=== PATIENT | male | born 1945 | race Two or more races ===

== ENCOUNTER 2022-02-17 11:42 | Inpatient (IN) | payer MEDICARE, MEDICAID, SELFPAY ==
--- NOTE | ~2022-02-17 | XR_ITS ---
EXAMINATION: XR CHEST CLINICAL INFORMATION: Preop COMPARISON: Previous chest x-ray from yesterday TECHNIQUE: 2 views of the chest were obtained. FINDINGS: The cardiac silhouette is enlarged but stable. The thoracic aorta is tortuous and may be ectatic. Hilar and mediastinal contours are unremarkable. The lungs are clear. There are small bilateral pleural effusions. No free air is seen. There is a loop recorder in the left chest wall. There are degenerative changes of the spine. XR/XR chest 2V IMPRESSION: Stable enlargement of the cardiac silhouette. Small bilateral pleural effusions. No free air is seen.
--- NOTE | ~2022-02-17 | CT_ITS ---
EXAMINATION: CT HEAD WITHOUT CONTRAST CLINICAL INFORMATION: Fall COMPARISON: None TECHNIQUE: Contiguous axial imaging was performed from the skull base to vertex without intravenous administration of contrast. This CT examination was performed using dose optimization techniques as appropriate, variously including the following: *Automated exposure control *Adjustment of mA and/or kV according to patient size (this includes techniques or standardized protocols for targeted exams where dose is matched to indication/reason for exam; i.e. extremities or head) *Use of iterative reconstruction technique DLP: 741 mGy-cm FINDINGS: There is no evidence of acute intracranial hemorrhage or territorial infarction. No abnormal mass effect or midline shift is seen. Pollard to white matter differentiation is well preserved. No extra-axial fluid collections are identified. Symmetric concordant age-appropriate diffuse parenchymal volume loss. No hydrocephalus. Patchy periventricular and subcortical white matter hypodensity consistent with chronic microvascular white matter ischemic changes. The osseous structures and soft tissues are normal. The mastoid air cells and visualized portions of the paranasal sinuses are well aerated. CT/CT head/brain wo IV con IMPRESSION: No acute intracranial pathology.
--- NOTE | ~2022-02-17 | CT_ITS ---
EXAMINATION: CT ABDOMEN AND PELVIS WITHOUT CONTRAST CLINICAL INFORMATION: injury near rectum open wound communicates COMPARISON: None. TECHNIQUE: Multidetector volumetric imaging was performed from the lung bases through the pubic symphysis. Sagittal and coronal reformatted images were obtained on the technologist workstation. This CT examination was performed using dose optimization techniques as appropriate, variously including the following: *Automated exposure control *Adjustment of mA and/or kV according to patient size (this includes techniques or standardized protocols for targeted exams where dose is matched to indication/reason for exam; i.e. extremities or head) *Use of iterative reconstruction technique FINDINGS: The lack of intravenous contrast limits evaluation of the solid visceral organs including the liver, spleen, pancreas, and kidneys. LUNG BASES: Marked cardiomegaly. Small to moderate pericardial effusion. Trace right effusion. Bilateral bronchial wall thickening and patchy interstitial opacities. LIVER, GALLBLADDER, AND BILIARY TREE: Limited noncontrast evaluation the liver is normal. Normal noncontrast appearance of the gallbladder. PANCREAS: Diffuse pancreatic atrophy. No pancreatic mass seen. No peripancreatic inflammatory changes. SPLEEN: Limited non-contrast evaluation is normal. ADRENAL GLANDS: 1.8 cm homogeneous low-density left adrenal mass has density 0 Hounsfield units consistent with a lipid rich adrenal adenoma for which no imaging follow-up is recommended. Normal right adrenal gland. KIDNEYS AND URETERS: Multiple bilateral renal cysts are present the largest measuring 7.4 cm exophytic from the lower pole the right kidney. No calculi or hydronephrosis. There are some likely vascular calcifications in the hilum of the left kidney. GASTROINTESTINAL TRACT: Stomach is collapsed. Small bowel is nondilated. No colonic wall thickening or pericolonic inflammatory changes. There are numerous foci of abnormal ectopic gas. There is extensive ectopic gas in the perineum extending to the amalia of the penis. There is gas within the subcutaneous fat of the right medial posterior buttock extending into the ischiorectal fossa. There is a collection of fluid and gas anterior to the rectum in image 71/89 measuring 3.8 x 1.7 cm consistent with underlying abscess/fistula. There is abnormal collection of gas with a gas fluid level posteriorly along the right pelvic sidewall measuring 9.2 x 2.7 cm in image 95. Abnormal ectopic gas is seen along the left pelvic sidewall in the same images. There is ectopic gas anterior to the bladder up to 1.4 cm in diameter. There is a small focus of pneumoperitoneum anterior to the bladder in image 67/90. ABDOMINAL WALL: There is diffuse soft tissue stranding throughout the pelvis. There is more focal fluid within the subcutaneous fat of the right anterior abdomen. There is midline posterior dependent fluid within the subcutaneous fat. Its unclear if these represent edema or contusions or some component of anasarca LYMPH NODES: No pathologically enlarged lymph nodes in the abdomen or pelvis. VASCULAR: 2.8 cm diameter aorta with circumferential calcified atherosclerotic changes. The common iliac arteries are nearly aneurysmal. BLADDER: Unremarkable. PELVIC VISCERA: Coarse calcifications in the prostate. Bilateral hydroceles are present in the scrotum. OSSEOUS STRUCTURES: Extensive multilevel degenerative disc disease L2-S1. CT/CT abdomen pelvis wo IV con IMPRESSION: Extensive areas of ectopic gas within the soft tissues of the right buttock, right ischiorectal fossa, perineum, and pelvis. Evaluation is limited without IV contrast. The appearance is more consistent with penetrating penetrating trauma then blunt injury, for example from a fall. The penetrating injury likely extends into the pelvis suspected bilateral pelvic sidewall collections. Perforation of the rectum is certainly possible. Recommend surgical consultation. Repeat study utilizing IV and perhaps rectal contrast may be helpful. The findings and recommendations were discussed with Genevieve Hurt MD by telephone at 02/17/2022 4:00 PM and it was ascertained that the content and urgency of the report was understood at the time of direct communication.
--- NOTE | ~2022-02-17 | XR_ITS ---
EXAMINATION: XR CHEST CLINICAL INFORMATION: Shortness of breath. COMPARISON: Chest radiograph 02/21/2022. TECHNIQUE: Frontal view of the chest was obtained. FINDINGS: Stable cardiomegaly. Increased layering right-sided pleural effusion with associated airspace opacities in the right lower lobe. No pneumothorax. Stable appearance of the left lung. No acute osseous abnormalities. XR/XR chest 1V IMPRESSION: Increased layering right-sided pleural effusion with associated worsening airspace opacities in the right lower lobe, possibly related with compressive atelectasis in view of the effusion.
--- NOTE | ~2022-02-17 | CT_ITS ---
EXAMINATION: CT ABDOMEN AND PELVIS WITHOUT CONTRAST CLINICAL INFORMATION: Abdominal discomfort and vomiting. COMPARISON: 02/17/2022 and 02/21/2022 TECHNIQUE: Multidetector volumetric imaging was performed from the superior aspect of the liver through the pubic symphysis. Sagittal and coronal reformatted images were obtained on the technologist's workstation. This CT examination was performed using dose optimization techniques as appropriate, variously including the following: *Automated exposure control *Adjustment of mA and/or kV according to patient size (this includes techniques or standardized protocols for targeted exams where dose is matched to indication/reason for exam; i.e. extremities or head) *Use of iterative reconstruction technique DLP: 498 mGy-cm FINDINGS: LUNG BASES: Multichamber cardiac enlargement. Implanted wireless pacemaker with the right ventricle. Small bilateral pleural effusions and bibasilar atelectasis remain similar in appearance compared to 02/21/2022. Persistent small pericardial effusion is present. LIVER: The liver has normal size, shape, and attenuation. No evidence of liver mass. GALLBLADDER AND BILIARY TREE: Gallbladder is underdistended. There is likely mild bladder wall thickening related to the anasarca. No dilated bile ducts. PANCREAS: No acute findings within the atrophied pancreas. SPLEEN: Normal. ADRENAL GLANDS: Again noted is the lipid rich adenoma of the left adrenal gland. KIDNEYS AND URETERS: No nephrolithiasis or hydronephrosis. Multiple bilateral renal cysts have a simple appearance, as noted on prior exams. No renal imaging follow-up is recommended for simple cysts. BLADDER: Grossly normal. BOWEL AND PERITONEUM: Stomach and small bowel are unremarkable. There are a few diverticula of the right colon. Although small volume of free fluid is present in the abdomen and pelvis, the volume of free fluid has increased compared to 02/21/2022. No focal organized intraperitoneal collection or pneumoperitoneum. Interval resolution of previously observed gas along the left pelvic sidewall. The collection of fluid and gas lateral to the rectum extending to the sidewall currently measures approximately 1.5 cm transverse, 8 cm AP (decreased from 3 x 8 cm on 02/21/2022). Also, small amount of gas previously seen deep to the right lower abdominal wall has resolved. ABDOMINAL WALL: Anasarca with diffuse edema of subcutaneous tissues. VASCULATURE: Atherosclerosis of the abdominal aorta and iliofemoral vessels. Again noted is the aneurysmal dilatation of the right common iliac artery. LYMPH NODES: No pathologic sized lymph nodes. PELVIC VISCERA: Again noted are the calcifications of the prostate which is normal in size. MUSCULOSKELETAL: Severe multilevel degenerative disc disease of the lumbar spine. No acute skeletal abnormalities compared to 02/21/2022. CT/CT abdomen pelvis wo IV con IMPRESSION: Cardiomegaly and anasarca. Small bilateral pleural effusions are similar compared to 02/21/2022. Interval increased edema of subcutaneous tissues, and increased volume of free fluid in the abdomen and pelvis. No intraperitoneal abscess. The abscess projecting lateral to the rectum extending toward the pelvic sidewall has decreased in size. The previously observed gas in the lower lateral pelvis has resolved, and there are no new perirectal collections.
--- NOTE | ~2022-02-17 | CT_ITS ---
EXAMINATION: CT ABDOMEN AND PELVIS WITHOUT CONTRAST CLINICAL INFORMATION: Follow-up rectal perforation COMPARISON: Previous CT of the abdomen and pelvis 02/17/2022 TECHNIQUE: Multidetector volumetric imaging was performed from the superior aspect of the liver through the pubic symphysis. Sagittal and coronal reformatted images were obtained on the technologist's workstation. This CT examination was performed using dose optimization techniques as appropriate, variously including the following: *Automated exposure control *Adjustment of mA and/or kV according to patient size (this includes techniques or standardized protocols for targeted exams where dose is matched to indication/reason for exam; i.e. extremities or head) *Use of iterative reconstruction technique DLP: 552 mGy-cm FINDINGS: LUNG BASES: The cardiac silhouette is enlarged but stable. There are small bilateral pleural effusions and bilateral lower lobe adjacent compressive atelectasis there is a pacemaker in the left particular apex. LIVER, GALLBLADDER, AND BILIARY TREE: Question mild cirrhotic changes of the liver. No focal lesion. Normal gallbladder. No biliary station. PANCREAS: Atrophic changes of the pancreas. SPLEEN: Unremarkable. ADRENAL GLANDS: 2 cm low-attenuation left adrenal lesion. This is negative Hounsfield units suggestive of a benign lipid rich adenoma. Normal right adrenal gland.. KIDNEYS AND URETERS: Multiple bilateral renal cysts. The kidneys are otherwise normal. No imaging follow-up. BLADDER: Small left-sided bladder diverticulum. The bladder is otherwise normal. GASTROINTESTINAL TRACT: There is wall thickening of the rectum. There is a small air fluid level adjacent right anterior upper rectum measuring 2 x 3.2 cm. Axial image 78 series 3. There is is questionable for abscess versus perforation and does not appear appreciably changed. There are bilateral air and fluid collections along both pelvic sidewalls measuring 3 by 9 mm on the right axial image 80 series 3 and smaller air collection on the left measuring 1 x 2 cm axial image 76. This does not appear appreciably changed from 02/17/2022 exam. There is a small amount of air just deep to the right anterior abdominal wall and lateral to the right rectus muscle axial image 77 series 3. This does not appear appreciably changed. It is uncertain whether this represents intra or extra peritoneal air. There is fat stranding surrounding the rectum and infiltration of the ischiorectal fat, right side greater than left. This does not appear appreciably changed. Air collections in the perineum and ischiorectal fat are decreased from 02/17/2022 exam. There is question of mild wall thickening of the sigmoid colon/mild colitis. Visualized bowel is otherwise unremarkable. The appendix is unremarkable. The stomach is unremarkable. ABDOMINAL WALL: No significant hernia is appreciated. LYMPH NODES: Normal. VASCULAR: There is evidence of atherosclerotic disease. There is ectasia of the abdominal aorta and iliac arteries bilaterally. There is a small aneurysm of the right common iliac artery measuring 2.9 cm. PELVIC VISCERA: Prostate gland measures 3.4 x 4 cm in AP and transverse dimension. There are calcifications in the prostate. OSSEOUS STRUCTURES: Degenerative changes of the spine. CT/CT abdomen pelvis wo IV con IMPRESSION: Wall thickening of the rectum. Stable air-fluid level adjacent to the right anterior lateral upper rectum questionable for abscess or perforation. Stable bilateral pelvic sidewall collections containing air and fluid on the right and air on the left. Stable small amount of air just deep to the right lower abdominal wall lateral to the rectus muscles. Fat stranding in the perineum and ischiorectal fat right greater than left. Interval decrease in air in the right ischiorectal fossa and perineal region. Mild wall thickening of the colon questionable for colitis. Bilateral renal cysts. Atherosclerotic disease stage of the lower abdominal aorta and iliac arteries. 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 Fleischner guidelines were followed.
--- NOTE | ~2022-02-17 | XR_ITS ---
EXAMINATION: XR CHEST CLINICAL INFORMATION: Evaluate pacer leads. COMPARISON: Abdomen CT from 02/17/2022. TECHNIQUE: Frontal view of the chest was obtained. FINDINGS: Again noted is marked cardiomegaly and mild prominence of central pulmonary vessels. No acute pulmonary edema. The trace right pleural effusion seen on 02/17/2022 is not visible on this radiograph. There is atherosclerotic calcification of the aorta. A leadless pacing device projects over the region of the apex of the right ventricle. There is no transvenous cardiac pacemaker. EKG wires overlie the patient. Lungs are hypoinflated and there is crowding of bronchovascular structures at the bases. Minimal atelectasis is suspected at the suboptimally evaluated bases. XR/XR chest 1V IMPRESSION: * Cardiomegaly. No acute pulmonary edema. * A leadless pacemaker projects over the apex of the right ventricle. * Lung bases are suboptimally evaluated due to the single anterior posterior projection and pulmonary hypoinflation.
[2022-02-17 12:09] VITALS: BP 145/93; PULSE 78; RESP 20; TEMP 36.7; O2SAT 97; BMI 26.4
--- NOTE | 2022-02-17 12:25 | ED_ITS ---
HPI - Skin/Abscess/Foreign Bdy General Chief complaint: Skin/Abscess/Foreign Body Stated complaint: bad infection in back/heart condition Time Seen by Provider: 02/17/22 12:22 Source: patient and family Mode of arrival: ambulatory Limitations: other (poor historian) History of Present Illness HPI narrative: 77 yo old male with PMH of BPH, heart condition with PPM on xarelto and carvedilol ?afib, HTN, alcohol abuse, asthma who fell on Sunday on concrete - son states he drinks a lot of alcohol. Patient denies head strike. He went to a clinic in they think it was sunday and the son was told by the clinic staff that they lanced a cyst. No antibiotics and the doctor who saw his father told the son to bring his father to the [facility] for treatment. The son few his father home as soon as possible. The patient has been bleeding and leaking stool from wound. MD complaint: laceration and lesion Onset (ago): day(s) (6) Tetanus up to date: yes Location: buttocks (left buttock) Severity: severe Quality: aching and constant Pain Consistency: constant Relieving factors: other (not sitting on buttock) Exacerbating factors: palpation and movement Context: other (reports falling and buttock landing on concrete he had some sort of a cyst that was lanced on Sunday and wound has become worse) Associated symptoms: chills and nausea Treatments prior to arrival: other (reportedly cyst was drained [place] clinic [place] the [place]) Related Data Home Medications Medication Instructions Recorded Confirmed acetaminophen 325 mg tablet 650 mg PO Q6H PRN Pain 02/17/22 02/17/22 carvedilol 6.25 mg tablet 1 tab PO BID 02/17/22 02/17/22 enalapril maleate 2.5 mg tablet 1 tab PO BID 02/17/22 02/17/22 folic acid 1 mg tablet 1 tab PO DAILY 02/17/22 02/17/22 furosemide 80 mg tablet 1 tab PO BID 02/17/22 02/17/22 omeprazole 20 mg capsule,delayed 20 mg PO DAILY@0630 02/17/22 02/17/22 release rivaroxaban 15 mg tablet (Xarelto) 15 mg PO DAILY@1700 02/17/22 02/17/22 spironolactone 25 mg tablet 1 tab PO DAILY 02/17/22 02/17/22 tamsulosin 0.4 mg capsule 1 cap PO DAILY 02/17/22 02/17/22 Allergies Allergy/AdvReac Type Severity Reaction Status Date / Time No Known Allergies Allergy Verified 02/17/22 12:33 Review of Systems Review of Systems: Constitutional : No Fever, pos Chills ENT/Mouth : No sore throat, No Rhinorrhea Eyes: No Eye Pain, No Swelling, No Redness Cardiovascular : No Chest Pain, No SOB Respiratory : No Cough, No Sputum Gastrointestinal : No Nausea, No Vomiting, No Diarrhea, No abdominal Pain Genitourinary : No Dysuria, No Hematuria Musculoskeletal : No joint pain, No Myalgias, No Joint Swelling Skin : pos Skin Lesions, positive skin rash Neuro : pos Weakness, No Numbness, No Headache Psych : No Anxiety, No Depression Heme/Lymph: No Bruising, No Bleeding,No Lymphadenopathy Endocrine : No Polyuria, No Polydipsia All other systems reviewed and are negative PMFSH Past Medical History Attestation statement: The following information was validated with the patient. Source: obtained from family Medical History (Updated 02/17/22 @ 16:31 by Genevieve Hurt DO) Afib Alcohol abuse Anticoagulant long-term use BPH (benign prostatic hyperplasia) Cardiomyopathy CKD (chronic kidney disease) ESBL (extended spectrum beta-lactamase) producing bacteria infection HTN (hypertension) Pacemaker Social History Social History Alcohol intake: former Patient Tobacco Use Status: Former Tobacco user Use of substances other than those prescribed or required for medical reasons: No Advance Directives: No Physical Exam Vital Signs: Vital Signs: Last Vital Signs Temp 98.0 F 02/17/22 14:20 Pulse 84 02/17/22 14:20 Resp 16 02/17/22 14:20 BP 140/92 H 02/17/22 14:20 Pulse Ox 95 02/17/22 14:20 O2 Del Method 02/17/22 14:20 BMI result Body Mass Index 26.4 Appearance: Alert. Oriented X3. Mild acute distress. Eyes: Pupils equal, round and reactive to light. ENT: Pharynx mild dry MM Neck: Normal inspection. Neck supple. CVS: Normal heart rate and rhythm. Pulses normal. Respiratory: No respiratory distress. Breath sounds normal. Abdomen: Soft and non-tender. Buttock: SEE PICTURE BELOW: open wound on left buttock x 2 area has stool coming out of it as well, it seems to track into the rectum with gentle sterile qtip probing, bleeding controlled, no fluctuance or underlying abscess felt, no crepitus, erythema noted to both buttocks Skin: Skin warm and dry. Normal skin color. Normal skin turgor. Extremities: No lower extremity edema. Neuro: Oriented X 3. No motor deficit. No sensory deficit. Course Course Course Narrative: Dr. Greg alonzo [facility] - afib, UTI with ESBL infection, CKD, cardiomyopathy EF 10% Dr. Garza feels currently can monitor - antibiotics, wash out at bedside, good wound care and will consult CKD - gas , around rectum in deep pelvis R buttock up into pelvis ?abscess Dr. Greg alonzo feels it is adequately draining at this time continue medical management. medicine to admit. MDM - Skin/Abscess/Foreign Bdy MDM Narrative Medical decision making narrative: 77 yo old male with PMH of BPH, heart condition with PPM on xarelto and carvedilol ?afib, HTN, alcohol abuse, asthma here with c/o buttock lesion after a fall that appears to communicate with the rectum - will obtain labs, cultures, start on empiric antibiotics, CT scan of head given fall and DOAC use, CT of abdomen/pelvs for deeper space infection, discuss with surgery - planned admit Lab Data Result diagrams: 02/17/22 14:05 02/17/22 13:05 Labs: Lab Results 02/17/22 02/17/22 02/17/22 Range/Units 13:05 13:05 13:05 WBC (4.8-10.8) X10*3/uL RBC (4.60-5.80) X10*6/uL Hgb (14.0-18.0) g/dl Hct (42.0-52.0) % MCV (80.0-98.0) fL MCH (27.0-33.0) pg MCHC (31.0-36.0) g/dl RDW (11.0-16.0) % Plt Count (160-400) X10*3/uL MPV (9.4-12.4) fL Immature Gran % (Auto) (0.0-0.4) % Neut % (Auto) (45-73) % Lymph % (Auto) (20-40) % [place] % (Auto) (2-11) % Eos % (Auto) (0-4) % Baso % (Auto) (0-2) % Lymph # (Auto) (1.2-4.9) X10*3/uL [place] # (Auto) (0.1-1.2) X10*3/uL Eos # (Auto) (0.0-0.4) X10*3/uL Baso # (Auto) (0.0-0.2) X10*3/uL Abs Immat Gran (auto) (0.00-0.03) X10*3/uL Absolute Neuts (auto) (2.0-8.3) x10*3/uL Absolute Nucleated RBC (0.0-0.012) X10*3/uL Nucleated RBC % (auto) (0.0-0.2) /100WBC PT 13.9 H (10.0-13.1) SEC INR 1.2 H (0.9-1.1) APTT 31.9 (26.0-36.4) SEC Sodium 133 L (135-145) mmol/L Potassium 4.5 (3.3-5.1) mmol/L Chloride 103 (96-108) mmol/L Carbon Dioxide 17 L (22-29) mmol/L Anion Gap 18 (12-20) BUN 22 H (9-16) mg/dL Creatinine 1.54 H (0.5-1.4) mg/dL Estim Creat Clear Calc 41.4 Estimated GFR 44 Random Glucose 110 (60-115) mg/dL Lactic Acid (0.5-2.0) mmol/L Calcium 8.4 (8.4-10.2) mg/dL Magnesium (1.6-2.6) mg/dL Total Bilirubin (0.0-1.0) mg/dL Direct Bilirubin (0.0-0.5) mg/dL AST (5-37) U/L ALT (0-40) U/L Alkaline Phosphatase (39-117) U/L Total Creatine Kinase (38-174) U/L Total Protein (6.5-8.0) g/dL Albumin (3.5-5.0) g/dL Lipase (8-78) U/L Procalcitonin ng/mL Urine Color Urine Appearance Urine pH (5.0-9.0) Ur Specific [place] (1.005-1.025) Urine Protein (Neg-Trace) mg/dL Urine Glucose (UA) (Negative) mg/dL Urine Ketones (Negative) mg/dL Urine Blood (Negative) Urine Nitrite (Negative) Ur Leukocyte Esterase (Negative) Urine RBC (0-2) /HPF Urine WBC (0-5) /HPF Ur Squamous Epith Cells (0-2) /HPF Urine Bacteria (None Seen) Hyaline Casts (0-2) /LPF Ethyl Alcohol mg/dL COVID-19 (SAY) Negative (Negative) COVID-19 Clin Com See Note 02/17/22 02/17/22 02/17/22 Range/Units 13:05 14:05 14:41 WBC 7.9 (4.8-10.8) X10*3/uL RBC 4.62 (4.60-5.80) X10*6/uL Hgb 12.9 L (14.0-18.0) g/dl Hct 38.7 L (42.0-52.0) % MCV 83.8 (80.0-98.0) fL MCH 27.9 (27.0-33.0) pg MCHC 33.3 (31.0-36.0) g/dl RDW 17.2 H (11.0-16.0) % Plt Count 344 (160-400) X10*3/uL MPV 10.2 (9.4-12.4) fL Immature Gran % (Auto) 1.6 H (0.0-0.4) % Neut % (Auto) 71.8 (45-73) % Lymph % (Auto) 15.3 L (20-40) % [place] % (Auto) 10.1 (2-11) % Eos % (Auto) 0.9 (0-4) % Baso % (Auto) 0.3 (0-2) % Lymph # (Auto) 1.2 (1.2-4.9) X10*3/uL [place] # (Auto) 0.8 (0.1-1.2) X10*3/uL Eos # (Auto) 0.1 (0.0-0.4) X10*3/uL Baso # (Auto) 0.0 (0.0-0.2) X10*3/uL Abs Immat Gran (auto) 0.13 H (0.00-0.03) X10*3/uL Absolute Neuts (auto) 5.7 (2.0-8.3) x10*3/uL Absolute Nucleated RBC 0.000 (0.0-0.012) X10*3/uL Nucleated RBC % (auto) 0.0 (0.0-0.2) /100WBC PT (10.0-13.1) SEC INR (0.9-1.1) APTT (26.0-36.4) SEC Sodium (135-145) mmol/L Potassium (3.3-5.1) mmol/L Chloride (96-108) mmol/L Carbon Dioxide (22-29) mmol/L Anion Gap (12-20) BUN (9-16) mg/dL Creatinine (0.5-1.4) mg/dL Estim Creat Clear Calc Estimated GFR Random Glucose (60-115) mg/dL Lactic Acid 1.3 (0.5-2.0) mmol/L Calcium (8.4-10.2) mg/dL Magnesium 1.8 (1.6-2.6) mg/dL Total Bilirubin 1.1 H (0.0-1.0) mg/dL Direct Bilirubin 0.5 (0.0-0.5) mg/dL AST 19 (5-37) U/L ALT 6 (0-40) U/L Alkaline Phosphatase 105 (39-117) U/L Total Creatine Kinase 16 L (38-174) U/L Total Protein 6.2 L (6.5-8.0) g/dL Albumin 2.7 L (3.5-5.0) g/dL Lipase 11 (8-78) U/L Procalcitonin ng/mL Urine Color Urine Appearance Urine pH (5.0-9.0) Ur Specific [place] (1.005-1.025) Urine Protein (Neg-Trace) mg/dL Urine Glucose (UA) (Negative) mg/dL Urine Ketones (Negative) mg/dL Urine Blood (Negative) Urine Nitrite (Negative) Ur Leukocyte Esterase (Negative) Urine RBC (0-2) /HPF Urine WBC (0-5) /HPF Ur Squamous Epith Cells (0-2) /HPF Urine Bacteria (None Seen) Hyaline Casts (0-2) /LPF Ethyl Alcohol < 10 mg/dL COVID-19 (SAY) (Negative) COVID-19 Clin Com 02/17/22 02/17/22 Range/Units 14:41 14:41 WBC (4.8-10.8) X10*3/uL RBC (4.60-5.80) X10*6/uL Hgb (14.0-18.0) g/dl Hct (42.0-52.0) % MCV (80.0-98.0) fL MCH (27.0-33.0) pg MCHC (31.0-36.0) g/dl RDW (11.0-16.0) % Plt Count (160-400) X10*3/uL MPV (9.4-12.4) fL Immature Gran % (Auto) (0.0-0.4) % Neut % (Auto) (45-73) % Lymph % (Auto) (20-40) % [place] % (Auto) (2-11) % Eos % (Auto) (0-4) % Baso % (Auto) (0-2) % Lymph # (Auto) (1.2-4.9) X10*3/uL [place] # (Auto) (0.1-1.2) X10*3/uL Eos # (Auto) (0.0-0.4) X10*3/uL Baso # (Auto) (0.0-0.2) X10*3/uL Abs Immat Gran (auto) (0.00-0.03) X10*3/uL Absolute Neuts (auto) (2.0-8.3) x10*3/uL Absolute Nucleated RBC (0.0-0.012) X10*3/uL Nucleated RBC % (auto) (0.0-0.2) /100WBC PT (10.0-13.1) SEC INR (0.9-1.1) APTT (26.0-36.4) SEC Sodium (135-145) mmol/L Potassium (3.3-5.1) mmol/L Chloride (96-108) mmol/L Carbon Dioxide (22-29) mmol/L Anion Gap (12-20) BUN (9-16) mg/dL Creatinine (0.5-1.4) mg/dL Estim Creat Clear Calc Estimated GFR Random Glucose (60-115) mg/dL Lactic Acid (0.5-2.0) mmol/L Calcium (8.4-10.2) mg/dL Magnesium (1.6-2.6) mg/dL Total Bilirubin (0.0-1.0) mg/dL Direct Bilirubin (0.0-0.5) mg/dL AST (5-37) U/L ALT (0-40) U/L Alkaline Phosphatase (39-117) U/L Total Creatine Kinase (38-174) U/L Total Protein (6.5-8.0) g/dL Albumin (3.5-5.0) g/dL Lipase (8-78) U/L Procalcitonin 0.15 ng/mL Urine Color Dark Yellow Urine Appearance Clear Urine pH 5.0 (5.0-9.0) Ur Specific [place] 1.015 (1.005-1.025) Urine Protein Negative (Neg-Trace) mg/dL Urine Glucose (UA) Negative (Negative) mg/dL Urine Ketones Negative (Negative) mg/dL Urine Blood Negative (Negative) Urine Nitrite Positive H (Negative) Ur Leukocyte Esterase Large (3+) H (Negative) Urine RBC 0-2 (0-2) /HPF Urine WBC >50 H (0-5) /HPF Ur Squamous Epith Cells 3-5 (0-2) /HPF Urine Bacteria 3+ (None Seen) Hyaline Casts 0-2 (0-2) /LPF Ethyl Alcohol mg/dL COVID-19 (SAY) (Negative) COVID-19 Clin Com ECG Data Attestation: I personally reviewed and interpreted this ECG as follows: ECG interpretation date: 02/17/22 ECG interpretation time: 13:16 Interpretation: Rate: 79 Rhythm: paced [place]: left Normal P waves. Normal [place]. wide QRS complex ST T wave : tall t waves in anterior leads qTC: prolonged prior studies: paced no priors The study has been interpreted contemporaneously by me. . Discharge Plan Discharge Clinical Impression: Acute UTI, Cellulitis of buttock Open wnd of buttock Qualifiers: Encounter type: initial encounter Laterality: left Qualified Code(s): S31.829A - Unspecified open wound of left buttock, initial encounter Patient Disposition: Admitted As Inpatient
--- NOTE | 2022-02-17 12:34 | ECG_ITS ---
Test Reason : ABSCESS Blood Pressure : / mmHG Vent. Rate : 079 BPM Atrial Rate : 079 BPM P-R Int : 000 ms QRS Dur : 164 ms QT Int : 436 ms P-R-T Axes : 000 230 064 degrees QTc Int : 499 ms Ventricular-paced rhythm Abnormal ECG No previous ECGs available Referred By: Genevieve Hurt Electronically Signed By:JAVY CRSEPO MD
[2022-02-17 13:19] LABS: INTERNATIONAL NORM RATIO 1.2 (0.9-1.1); Prothrombin Time 13.9 SEC (10.0-13.1)
[2022-02-17 13:21] LABS: Partial Thromboplastin Time 31.9 SEC (26.0-36.4)
[2022-02-17 13:24] LABS: Lactic Acid 1.3 mmol/L (0.5-2.0)
[2022-02-17 13:27] LABS: Anion Gap 18 (12-20); Blood Urea Nitrogen 22 mg/dL (9-16); Calcium 8.4 mg/dL (8.4-10.2); Carbon Dioxide 17 mmol/L (22-29); Chloride 103 mmol/L (96-108); Creatinine Clr Calc Pharmacy 41.4; Estimated Glomerular Filt Rate 44; Glucose Random 110 mg/dL (60-115); Potassium 4.5 mmol/L (3.3-5.1); Sodium 133 mmol/L (135-145)
[2022-02-17] MEDS: 0.9 % Sodium Chloride 500 ML IV (13:58)
[2022-02-17] MEDS: Piperacillin Sodium/Tazobactam 3.375 GM in 0.9 % Sodium Chloride 50 ML IV ×2 (13:59→21:42)
[2022-02-17] MEDS: Thiamine HCL 200 MG in 0.9 % Sodium Chloride 100 ML 204 MG IV (13:59)
[2022-02-17 14:14] LABS: MANUAL DIFF FLAG NO
[2022-02-17] MEDS: Famotidine/PF 20 MG/2 ML VIAL IVPUSH (14:18)
--- NOTE | 2022-02-17 14:19 | PC.NURSE ---
pt tough stick, multiple attempts by staff, piv with US placed by crystal duong. abx and ivf now running as ordered.
[2022-02-17 14:20] VITALS: BP 140/92; PULSE 84; RESP 16; TEMP 36.7; O2SAT 95
[2022-02-17 14:24] LABS: Basophils Percent Auto 0.3 % (0-2); Eosinophils Absolute Auto 0.1 X10*3/uL (0.0-0.4); Eosinophils Percent Auto 0.9 % (0-4); Hematocrit 38.7 % (42.0-52.0); Hemoglobin 12.9 g/dl (14.0-18.0); Imm Gran Abs Auto 0.13 X10*3/uL (0.00-0.03); Imm Gran Pct Auto 1.6 % (0.0-0.4); Lymphocytes Absolute Auto 1.2 X10*3/uL (1.2-4.9); Lymphocytes Percent Auto 15.3 % (20-40); Mean Corpuscular HGB Conc 33.3 g/dl (31.0-36.0); Mean Corpuscular Hemoglobin 27.9 pg (27.0-33.0); Mean Corpuscular Volume 83.8 fL (80.0-98.0); Mean Platelet Volume 10.2 fL (9.4-12.4); Monocytes Absolute Auto 0.8 X10*3/uL (0.1-1.2); Monocytes Percent Auto 10.1 % (2-11); Neutrophils Absolute Auto 5.7 x10*3/uL (2.0-8.3); Neutrophils Percent Auto 71.8 % (45-73); Platelet Count 344 X10*3/uL (160-400); Red Blood Count 4.62 X10*6/uL (4.60-5.80); Red Cell Distribution Width 17.2 % (11.0-16.0); White Blood Count 7.9 X10*3/uL (4.8-10.8)
--- NOTE | 2022-02-17 14:32 | PHA.MEDREC ---
Pharmacy Consult ? Medication Reconciliation Pharmacy has completed the medication reconciliation. Pt had bag of bottles at bedside, son was with him and explained that he has been in the [place] and has been getting medications there. His son asked him when he last took them and pt stated this morning.
[2022-02-17 14:52] LABS: COVID-19 Test Negative (Negative); IDNOW Serial# 16C4AD1C
[2022-02-17 14:56] LABS: Appearance Urine Clear; Color Urine Dark Yellow; Glucose Urine UA Negative (Negative); Leukocyte Esterase Urine Large (3+) (Negative); Nitrite Urine Positive (Negative); Specific Gravity - Urine 1.015 (1.005-1.025); UMIC TRIGGER UACC YES; Urine Blood Negative (Negative); Urine Ketones Negative (Negative); Urine Protein Negative (Neg-Trace)
[2022-02-17] MEDS: vancomycin HCL 1,000 MG, vancomycin HCL 750 MG in 0.9 % Sodium Chloride 500 ML 267.5 MG IV (15:04)
[2022-02-17 15:15] LABS: Alanine Aminotransferase 6 U/L (0-40); Albumin Level 2.7 g/dL (3.5-5.0); Alkaline Phosphatase 105 U/L (39-117); Aspartate Amino Transferase 19 U/L (5-37); Bilirubin Direct 0.5 mg/dL (0.0-0.5); Bilirubin Total 1.1 mg/dL (0.0-1.0); Ethanol < 10 mg/dL; Lipase 11 U/L (8-78); Magnesium 1.8 mg/dL (1.6-2.6); Total Protein 6.2 g/dL (6.5-8.0)
[2022-02-17 15:19] LABS: Bacteria Urine 3+ (None Seen); Hyaline Casts Urine 0-2 /LPF (0-2); RBC Urine 0-2 /HPF (0-2); UACC Culture Trigger YES; WBC Urine >50 /HPF (0-5)
[2022-02-17 15:31] LABS: Procalcitonin 0.15 ng/mL
--- NOTE | 2022-02-17 15:32 | P.CONGS_ITS ---
History of Present Illness Consult details Consult date: 02/17/22 Requesting physician: Genevieve Hurt Narrative: 77-year-old male patient presenting after falling onto cement on Sunday (02/12/2022) while in the [place]. He has a history of alcohol abuse and apparently was intoxicated at the time. He was subsequently seen in a walk- in clinic on Sunday at which time an incision and drainage was performed of an apparent abscess in the perianal skin. A large amount of fecal in drainage was noted at that time. The clinic contacted his son here in [place] and recommended that he be transferred as quickly as possible [place] the [place] for further management. Per his son, the patient has a long history of alcohol abuse and typically drinks rum. He has a history of cardiovascular disease and is reported to have an ejection fraction of 10% and workup performed at [facility]. Workup in the emergency department today with a CBC revealed normal WBC and normal MCV. INR is 1.2 although he is reported be on Xarelto. A CT abdomen and pelvis revealed cardiomegaly, aortic aneurysm, and air tracking around the rectum contiguous with the open wound in the perianal skin. Review of Systems Review of Systems: Yes Unobtainable due to mental status PMFSH Past Medical History Medical History Afib Alcohol abuse Anticoagulant long-term use BPH (benign prostatic hyperplasia) CKD (chronic kidney disease) ESBL (extended spectrum beta-lactamase) producing bacteria infection HTN (hypertension) Pacemaker Social History Social History Alcohol intake: former Patient Tobacco Use Status: Former Tobacco user Use of substances other than those prescribed or required for medical reasons: No Advance Directives: No Meds Allergies Allergy/AdvReac Type Severity Reaction Status Date / Time No Known Allergies Allergy Verified 02/17/22 12:33 Active Medications: Current Medications Vancomycin HCl 1,000 mg/Vancomycin HCl 750 mg/ Sodium Chloride 535 mls @ 267.5 mls/hr IV ONCE ONE Stop: 02/17/22 16:21 Last Admin: 02/17/22 15:04 Dose: 267.5 mls/hr Pharmacy Consult (Consult Rx Perform Med Rec) 1 each MISCELLANE ONCE PRN PRN Reason: Consult order Home Medications Medication Instructions Recorded Confirmed Last Taken Type acetaminophen 325 mg tablet 650 mg PO Q6H PRN Pain 02/17/22 02/17/22 Unknown History carvedilol 6.25 mg tablet 1 tab PO BID 02/17/22 02/17/22 02/17/22 History enalapril maleate 2.5 mg tablet 1 tab PO BID 02/17/22 02/17/22 02/17/22 History folic acid 1 mg tablet 1 tab PO DAILY 02/17/22 02/17/22 02/17/22 History furosemide 80 mg tablet 1 tab PO BID 02/17/22 02/17/22 02/17/22 History omeprazole 20 mg capsule,delayed 20 mg PO DAILY@0630 02/17/22 02/17/22 Unknown History release rivaroxaban 15 mg tablet (Xarelto) 15 mg PO DAILY@1700 02/17/22 02/17/22 Unknown History spironolactone 25 mg tablet 1 tab PO DAILY 02/17/22 02/17/22 02/17/22 History tamsulosin 0.4 mg capsule 1 cap PO DAILY 02/17/22 02/17/22 02/17/22 History Physical Exam Vital Signs: Vital Signs: Last Vital Signs Temp 98.0 F 02/17/22 14:20 Pulse 84 02/17/22 14:20 Resp 16 02/17/22 14:20 BP 140/92 H 02/17/22 14:20 Pulse Ox 95 02/17/22 14:20 O2 Del Method 02/17/22 14:20 BMI result Body Mass Index 26.4 Const: General: lethargic Nutritional Appearance: well nourished Orientation/consciousness: lethargic Limitations: altered mental status HEENT: Head: Yes normocephalic and Yes atraumatic Resp: Effort & Inspection: normal respiratory effort Auscultation: clear to auscultation bilaterally and crackles GI: Palpation (GI): Soft to palpation, nontender, no guarding, not rigid and Pulsatile mass present Percussion: Yes normal to percussion Auscultation: normal bowel sounds Back/Spine/Pelvis: Other: Rectal examination reveals an open wound on the left perianal wall measuring at least 4-5 cm in length. Probing with a Q-tip reveals an opening into the rectum with tracking around the rectum. Feculent discharge is noted from the open wound. No undrained abscess is identified. Skin: General skin exam: no rashes or lesions noted Extrem: General: Yes no clubbing, cyanosis or edema Results Labs Result diagrams: 02/17/22 14:05 02/17/22 13:05 Labs: Abnormal lab results 02/17/22 02/17/22 02/17/22 Range/Units 13:05 13:05 14:05 Hgb 12.9 L (14.0-18.0) g/dl Hct 38.7 L (42.0-52.0) % RDW 17.2 H (11.0-16.0) % Immature Gran % (Auto) 1.6 H (0.0-0.4) % Lymph % (Auto) 15.3 L (20-40) % Abs Immat Gran (auto) 0.13 H (0.00-0.03) X10*3/uL PT 13.9 H (10.0-13.1) SEC INR 1.2 H (0.9-1.1) Sodium 133 L (135-145) mmol/L Carbon Dioxide 17 L (22-29) mmol/L BUN 22 H (9-16) mg/dL Creatinine 1.54 H (0.5-1.4) mg/dL Total Bilirubin (0.0-1.0) mg/dL Total Creatine Kinase (38-174) U/L Total Protein (6.5-8.0) g/dL Albumin (3.5-5.0) g/dL Urine Nitrite (Negative) Ur Leukocyte Esterase (Negative) Urine WBC (0-5) /HPF 02/17/22 02/17/22 Range/Units 14:41 14:41 Hgb (14.0-18.0) g/dl Hct (42.0-52.0) % RDW (11.0-16.0) % Immature Gran % (Auto) (0.0-0.4) % Lymph % (Auto) (20-40) % Abs Immat Gran (auto) (0.00-0.03) X10*3/uL PT (10.0-13.1) SEC INR (0.9-1.1) Sodium (135-145) mmol/L Carbon Dioxide (22-29) mmol/L BUN (9-16) mg/dL Creatinine (0.5-1.4) mg/dL Total Bilirubin 1.1 H (0.0-1.0) mg/dL Total Creatine Kinase 16 L (38-174) U/L Total Protein 6.2 L (6.5-8.0) g/dL Albumin 2.7 L (3.5-5.0) g/dL Urine Nitrite Positive H (Negative) Ur Leukocyte Esterase Large (3+) H (Negative) Urine WBC >50 H (0-5) /HPF Short CBC 02/17/22 Range/Units 14:05 WBC 7.9 (4.8-10.8) X10*3/uL Hgb 12.9 L (14.0-18.0) g/dl Hct 38.7 L (42.0-52.0) % Plt Count 344 (160-400) X10*3/uL BMP 02/17/22 13:05 Sodium 133 L Potassium 4.5 Chloride 103 Carbon Dioxide 17 L BUN 22 H Creatinine 1.54 H Calcium 8.4 Cardiac Enzymes 02/17/22 Range/Units 14:41 Total Creatine Kinase 16 L (38-174) U/L Liver Function 02/17/22 Range/Units 14:41 Total Bilirubin 1.1 H (0.0-1.0) mg/dL Direct Bilirubin 0.5 (0.0-0.5) mg/dL AST 19 (5-37) U/L ALT 6 (0-40) U/L Alkaline Phosphatase 105 (39-117) U/L Albumin 2.7 L (3.5-5.0) g/dL Urine 02/17/22 Range/Units 14:41 Urine Color Dark Yellow Urine Appearance Clear Urine pH 5.0 (5.0-9.0) Ur Specific [place] 1.015 (1.005-1.025) Urine Protein Negative (Neg-Trace) mg/dL Urine Glucose (UA) Negative (Negative) mg/dL All other labs normal. Assessment and Plan (1) Open wnd of buttock: Qualifiers: Encounter type: initial encounter Laterality: left Qualified Code(s): S31.829A - Unspecified open wound of left buttock, initial encounter Status: Acute (2) Fall: Status: Acute (3) Traumatic perforation of rectum: Status: Acute Plan 77-year-old male patient status post fall in the [place] 6 days ago found to have an open wound in the anal skin which is contiguous with a perforation of the rectum. The wound is widely drained but leaking fecal material. Patient's WBC is normal and CT does reveal air tracking out around the rectum. Patient has severe cardiac disease with an ejection fraction of 10%, on oral anticoagulation, and chronic kidney disease. Options include bowel rest, IV antibiotics and local wound care with Sitz baths q.i.d. to wash out the open wound. If his wounds is not improve a diverting loop colostomy may be necessary although his risk for general anesthesia are high given his cardiac history. Procedures Date of Service Date of Service: 02/17/22
--- NOTE | 2022-02-17 17:34 | PM.IMHP ---
History of Present Illness Date of Service: 02/17/22 Attending physician on admission: Colleen Velasco Chief Complaint: Open wound left buttock 77-year-old gentleman with past medical history significant for heart failure with reduced EF echocardiogram from last year showed an EF of 10-15% with grade 3 diastolic dysfunction status post pacemaker placement in 2019, history of atrial fibrillation on anticoagulation, history of chronic kidney disease stage 3, history of severe mitral regurg, moderate to severe tricuspid regurg, moderate pulmonary hypertension and dementia was brought into [facility] accompanied by son since patient fell on concrete in [facility] [place] while he was intoxicated patient has history of 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 possible for further management therefore patient was brought into [facility], patient is a poor historian due to underlying dementia unable to provide detailed history at present he denies fever chills complaining of chronic shortness of breath, denies headache, dizziness, workup in the emergency room showed an INR of 1.[address] abdomen and pelvis revealed mild to moderate pericardial effusion, extensive areas of ectopic gas within the soft tissues of the right buttock right ischiorectal fossa perineum and pelvis likely related to perforation of the rectum, patient noted to have fecal drainage from the open wound, extending to the rectum from the left perineal wall, patient at present is hemodynamically stable surgery recommended patient to be admitted to medical service with surgical consultation due to significant history of heart disease with low EF, chronic kidney disease stage 3 and atrial fibrillation on Xarelto. Review of Systems Review of Systems: Yes Unobtainable due to mental status [facility] Medical History Afib Alcohol abuse Anticoagulant long-term use BPH (benign prostatic hyperplasia) Cardiomyopathy CKD (chronic kidney disease) ESBL (extended spectrum beta-lactamase) producing bacteria infection HTN (hypertension) Pacemaker Pertinent family history: As per patient's son patient's father diet due to a car accident, mother due to pulmonary issues no family history of colon cancer Social History Alcohol intake: former Patient Tobacco Use Status: Former Tobacco user Use of substances other than those prescribed or required for medical reasons: No Advance Directives: No Meds Allergies Allergy/AdvReac Type Severity Reaction Status Date / Time No Known Allergies Allergy Verified 02/17/22 12:33 Active Medications: Current Medications Acetaminophen (Acetaminophen 325 Mg Tablet) 650 mg PO Q6H PRN PRN Reason: Pain, Mild (Pain Scale 1-3) Benzonatate (Benzonatate 100 Mg Capsule) 100 mg PO TID PRN PRN Reason: Cough Carvedilol (Carvedilol 6.25 Mg Tablet) 6.25 mg PO BID [facility]; Protocol Enalapril Maleate (Enalapril Maleate 2.5 Mg Tablet) 2.5 mg PO BID [facility]; Protocol Folic Acid (Folic Acid 1 Mg Tablet) 1 mg PO DAILY [facility] Melatonin (Melatonin 3 Mg Tablet) 3 mg PO BEDTIME PRN PRN Reason: Insomnia Omeprazole (Omeprazole 20 Mg Capsule.Dr) 20 mg PO DAILY@0630 [facility] Ondansetron HCl (Ondansetron Hcl 4 Mg/2 Ml Vial) 4 mg IVPUSH Q8H PRN PRN Reason: Nausea and Vomiting Pharmacy Consult (Consult Rx Perform Med Rec) 1 each MISCELLANE ONCE PRN PRN Reason: Consult order Sodium Chloride (0.9 % Sodium Chloride Flush 3 Ml Syringe) 3 ml IVFLUSH QSHIFT [facility] Tamsulosin HCl (Tamsulosin Hcl 0.4 Mg Capsule) 0.4 mg PO DAILY [facility] Home Medications Medication Instructions Recorded Confirmed Last Taken Type acetaminophen 325 mg tablet 650 mg PO Q6H PRN Pain 02/17/22 02/17/22 Unknown History carvedilol 6.25 mg tablet 1 tab PO BID 02/17/22 02/17/22 02/17/22 History enalapril maleate 2.5 mg tablet 1 tab PO BID 02/17/22 02/17/22 02/17/22 History folic acid 1 mg tablet 1 tab PO DAILY 02/17/22 02/17/22 02/17/22 History furosemide 80 mg tablet 1 tab PO BID 02/17/22 02/17/22 02/17/22 History omeprazole 20 mg capsule,delayed 20 mg PO DAILY@0630 02/17/22 02/17/22 Unknown History release rivaroxaban 15 mg tablet (Xarelto) 15 mg PO DAILY@1700 02/17/22 02/17/22 Unknown History spironolactone 25 mg tablet 1 tab PO DAILY 02/17/22 02/17/22 02/17/22 History tamsulosin 0.4 mg capsule 1 cap PO DAILY 02/17/22 02/17/22 02/17/22 History Physical Exam Vital Signs and Narrative: Vital Signs: Last Vital Signs Temp 98.0 F 02/17/22 14:20 Pulse 84 02/17/22 14:20 Resp 16 02/17/22 14:20 BP 140/92 H 02/17/22 14:20 Pulse Ox 95 02/17/22 14:20 O2 Del Method 02/17/22 14:20 BMI result Body Mass Index 26.4 Const: Other: General resting comfortably in no acute distress. Anicteric sclera Neck supple no JVD. CVS regular rate rhythm, Respiratory lungs clear to auscultation, no respiratory distress, no wheeze, no rhonchi. Gastrointestinal abdomen soft, nontender, bowel sounds audible, no guarding , no rigidity. Extremities no edema. Rectal examination reveals open wound on the left perianal wall measuring at least 4-5 cm in length,Feculent discharge is noted from the open wound.? Neuro nonfocal, patient moving all 4 extremity speech clear. Skin no rash Psych poor insight Results Labs CBC and Chem 7: 02/18/22 06:19 02/18/22 07:46 Labs: Laboratory Results - last 24 hr 02/17/22 02/17/22 02/17/22 13:05 13:05 13:05 MCV MCH MCHC RDW Plt Count MPV Immature Gran % (Auto) Neut % (Auto) Lymph % (Auto) Dubois % (Auto) Eos % (Auto) Baso % (Auto) Lymph # (Auto) Dubois # (Auto) Eos # (Auto) Baso # (Auto) Abs Immat Gran (auto) Absolute Neuts (auto) Absolute Nucleated RBC Nucleated RBC % (auto) PT 13.9 H INR 1.2 H APTT 31.9 Anion Gap 18 Estim Creat Clear Calc 41.4 Estimated GFR 44 Random Glucose 110 Lactic Acid Calcium 8.4 Magnesium Total Bilirubin Direct Bilirubin AST ALT Alkaline Phosphatase Total Creatine Kinase Total Protein Albumin Lipase Procalcitonin Urine Color Urine Appearance Urine pH Ur Specific [place] Urine Protein Urine Glucose (UA) Urine Ketones Urine Blood Urine Nitrite Ur Leukocyte Esterase Urine RBC Urine WBC Ur Squamous Epith Cells Urine Bacteria Hyaline Casts Ethyl Alcohol COVID-19 (SAY) Negative COVID-19 Clin Com See Note 02/17/22 02/17/22 02/17/22 13:05 14:05 14:41 MCV 83.8 MCH 27.9 MCHC 33.3 RDW 17.2 H Plt Count 344 MPV 10.2 Immature Gran % (Auto) 1.6 H Neut % (Auto) 71.8 Lymph % (Auto) 15.3 L Dubois % (Auto) 10.1 Eos % (Auto) 0.9 Baso % (Auto) 0.3 Lymph # (Auto) 1.2 Dubois # (Auto) 0.8 Eos # (Auto) 0.1 Baso # (Auto) 0.0 Abs Immat Gran (auto) 0.13 H Absolute Neuts (auto) 5.7 Absolute Nucleated RBC 0.000 Nucleated RBC % (auto) 0.0 PT INR APTT Anion Gap Estim Creat Clear Calc Estimated GFR Random Glucose Lactic Acid 1.3 Calcium Magnesium 1.8 Total Bilirubin 1.1 H Direct Bilirubin 0.5 AST 19 ALT 6 Alkaline Phosphatase 105 Total Creatine Kinase 16 L Total Protein 6.2 L Albumin 2.7 L Lipase 11 Procalcitonin Urine Color Urine Appearance Urine pH Ur Specific [place] Urine Protein Urine Glucose (UA) Urine Ketones Urine Blood Urine Nitrite Ur Leukocyte Esterase Urine RBC Urine WBC Ur Squamous Epith Cells Urine Bacteria Hyaline Casts Ethyl Alcohol < 10 COVID-19 (SAY) COVID-19 Clin Com 02/17/22 02/17/22 14:41 14:41 MCV MCH MCHC RDW Plt Count MPV Immature Gran % (Auto) Neut % (Auto) Lymph % (Auto) Dubois % (Auto) Eos % (Auto) Baso % (Auto) Lymph # (Auto) Dubois # (Auto) Eos # (Auto) Baso # (Auto) Abs Immat Gran (auto) Absolute Neuts (auto) Absolute Nucleated RBC Nucleated RBC % (auto) PT INR APTT Anion Gap Estim Creat Clear Calc Estimated GFR Random Glucose Lactic Acid Calcium Magnesium Total Bilirubin Direct Bilirubin AST ALT Alkaline Phosphatase Total Creatine Kinase Total Protein Albumin Lipase Procalcitonin 0.15 Urine Color Dark Yellow Urine Appearance Clear Urine pH 5.0 Ur Specific [place] 1.015 Urine Protein Negative Urine Glucose (UA) Negative Urine Ketones Negative Urine Blood Negative Urine Nitrite Positive H Ur Leukocyte Esterase Large (3+) H Urine RBC 0-2 Urine WBC >50 H Ur Squamous Epith Cells 3-5 Urine Bacteria 3+ Hyaline Casts 0-2 Ethyl Alcohol COVID-19 (SAY) COVID-19 Clin Com Imaging Radiologist's Impressions: Impressions Abdomen/Pelvis CT 02/17/22 14:35 IMPRESSION: Extensive areas of ectopic gas within the soft tissues of the right buttock, right ischiorectal fossa, perineum, and pelvis. Evaluation is limited without IV contrast. The appearance is more consistent with penetrating penetrating trauma then blunt injury, for example from a fall. The penetrating injury likely extends into the pelvis suspected bilateral pelvic sidewall collections. Perforation of the rectum is certainly possible. Recommend surgical consultation. Repeat study utilizing IV and perhaps rectal contrast may be helpful. The findings and recommendations were discussed with Genevieve Hurt MD by telephone at 02/17/2022 4:00 PM and it was ascertained that the content and urgency of the report was understood at the time of direct communication. Head CT 02/17/22 14:36 IMPRESSION: No acute intracranial pathology. Assessment and Plan (1) Traumatic perforation of rectum: Status: Acute (2) Cellulitis of buttock: Status: Acute (3) Fall: Status: Acute (4) Acute UTI: Status: Acute (5) Open wnd of buttock: Qualifiers: Encounter type: initial encounter Laterality: left Qualified Code(s): S31.829A - Unspecified open wound of left buttock, initial encounter Status: Acute Plan 77-year-old gentleman with past medical history of heart failure with reduced EF status post pacemaker 2020 atrial fibrillation on Xarelto, chronic kidney disease stage 3 brought into [facility] by son since patient fell in [facility] [place] while intoxicated on concrete floor and developed open for wound with fecal drainage showing rectal perforation patient is being admitted to medical floor with close surgical follow-up. Open wound( left perianal) with Rectal perforation Will give clear liquid diet tonight and make him NPO after midnight, place patient on IV Zosyn and IV vancomycin follow blood cultures and urine Cultures Case discussed with general surgery Dr. Garza recommend Sitz baths 4 times a day, he agrees with antibiotics Will hold Xarelto for possible surgical intervention Follow CBC electrolytes and clinical course closely for any decompensation Chronic congestive heart failure with reduced EF No acute exacerbation Continue home medications including Coreg, ,vasotec, hold diuretics Chronic persistent atrial fibrillation rate controlled continue Coreg hold anticoagulation as above chronic kidney disease stage 3 stable Mild to moderate pericardial effusion patient asymptomatic with no chest pain will obtain cardiology consultation if planned for surgical procedure UTI patient is a poor historian unable to obtain history regarding urinary symptoms UA is positive is on IV Zosyn that will cover will follow urine culture sensitivity and blood cultures Code status DNR DNI discussed with patient son at bedside who is the healthcare proxy Pancho Huang DVT prophylaxis hold anticoagulation for possible surgical intervention, will place on compression stockings In my clinical opinion patient will need 2 night inpatient stay due to perforated rectum with open Anal wound. Quality Stroke Does the patient have a stroke diagnosis?: No VTE Prior VTE?: No VTE Risk Level:: Medical - moderate - high VTE Device Contraindication: N/A - Device Ordered VTE Drug Contraindication: Treatment Not Indicated
[2022-02-17 19:53] VITALS: BP 159/96; PULSE 75; RESP 15; TEMP 36.6; O2SAT 98
[2022-02-17] MEDS: carvediloL 6.25 MG TABLET PO (21:41)
[2022-02-17] MEDS: 0.9 % Sodium Chloride Flush 3 ML SYRINGE IVFLUSH (23:37)
[2022-02-17 23:38] VITALS: BP 145/98; PULSE 79; RESP 15; O2SAT 94
[2022-02-18] VITALS (7 sets, daily range): BP systolic 130–159; BP diastolic 78–103; PULSE 69–100; RESP 13–20; TEMP 35.6–36.8; O2SAT 92–98
[2022-02-18] MEDS: Piperacillin Sodium/Tazobactam 3.375 GM in 0.9 % Sodium Chloride 50 ML IV ×4 (03:13→22:00)
[2022-02-18] MEDS: Acetaminophen 325 MG TABLET 650 MG PO (04:42)
--- NOTE | 2022-02-18 05:40 | PC.NURSE ---
Patient assisted to commode with 2-assist for stability. He has smears of stool on the pad in his bed. Bed linens changed, yamilka care provided, and fresh ABD pad applied to buttock wound. Patient boosted and repositioned on his left side in stretcher for comfort, medicated with tylenol for wound pain. Call hussein is within reach.
[2022-02-18] MEDS: Omeprazole 20 MG CAPSULE.DR PO (05:41)
[2022-02-18 07:02] LABS: Hematocrit 34.2 % (42.0-52.0); Hemoglobin 11.4 g/dl (14.0-18.0); Mean Corpuscular HGB Conc 33.3 g/dl (31.0-36.0); Mean Corpuscular Hemoglobin 28.1 pg (27.0-33.0); Mean Corpuscular Volume 84.2 fL (80.0-98.0); Mean Platelet Volume 10.9 fL (9.4-12.4); Platelet Count 281 X10*3/uL (160-400); Red Blood Count 4.06 X10*6/uL (4.60-5.80); Red Cell Distribution Width 17.5 % (11.0-16.0); White Blood Count 6.6 X10*3/uL (4.8-10.8)
[2022-02-18] MEDS: 0.9 % Sodium Chloride Flush 3 ML SYRINGE IVFLUSH ×2 (08:41→18:23)
[2022-02-18] MEDS: carvediloL 6.25 MG TABLET PO ×2 (08:41→22:25)
[2022-02-18] MEDS: Folic Acid 1 MG TABLET PO (08:41)
[2022-02-18] MEDS: Tamsulosin HCL 0.4 MG CAPSULE PO (08:41)
[2022-02-18 09:23] LABS: Anion Gap 21 (12-20); Blood Urea Nitrogen 20 mg/dL (9-16); Calcium 8.3 mg/dL (8.4-10.2); Carbon Dioxide 15 mmol/L (22-29); Chloride 107 mmol/L (96-108); Creatinine Clr Calc Pharmacy 44.6; Estimated Glomerular Filt Rate 48; Glucose Random 68 mg/dL (60-115); Potassium 5.1 mmol/L (3.3-5.1); Sodium 138 mmol/L (135-145)
--- NOTE | 2022-02-18 09:43 | PHA.PROG ---
Admission Date/Time: February 17, 2022 17:05 Indication: Intra Abdominal Infection Weight in k.183 kg Adjusted body weight in K.653 [place] body weight in K.3 Obesity Dosing Indication % IBW: N/A Serum Creatinine - Last 168 Hours 02/17/22 02/18/22 13:05 07:46 Creatinine 1.54 H 1.43 H Estimated CrCl and GFR - Last 168 Hours 02/17/22 02/18/22 13:05 07:46 Estim Creat Clear Calc 41.4 44.6 Estimated GFR 44 48 Vancomycin Loading Dose: 1750 mg Current Vancomycin Dosing Regimen: 1250 mg Q24H Vancomycin Monitoring using AUC goal of 400 - 600 range with trough as surrogate marker: 531 mg/L/hr Date and Time for next Vancomycin Level to be drawn: 02/20 @1300 Pharmacist Comments on Vancomycin Plan: Patient didn't receive proper load. Patient should have received 2000 mg, however, patient only received 1750 mg which is about 20 mg/kg. Patient to have level drawn 02/20 @1300. Predicted AUC 531 mg/L/hr Vancomycin dosing will take advantage of [employer] as a clinical decision support tool that uses Bayesian modeling to calculate individual patient's pharmacokinetic parameters and forecast the patient's drug concentration time course with the target goal AUC 24 range of 400 - 600 mg/L/hr.
--- NOTE | 2022-02-18 13:14 | P.PNIM_ITS ---
Subjective Subjective Date of Service: 02/18/22 Interval History: Patient is resting comfortably unable to obtain history due to underlying dementia, no acute events overnight, no fevers no chills, vitals stable. Review of Systems Review of Systems: Yes Unobtainable due to mental status Physical Exam Vital Signs: Vital Signs: Last Vital Signs Temp 98 F 02/18/22 05:31 Pulse 78 02/18/22 08:39 Resp 13 02/18/22 08:39 BP 130/94 H 02/18/22 08:39 Pulse Ox 98 02/18/22 05:31 O2 Del Method 02/18/22 05:31 BMI result Body Mass Index 26.4 Const: Other: General? resting comfortably in no acute distress.? Neck supple no JVD. CVS? regular rate rhythm, Respiratory lungs clear to auscultation, no respiratory distress, no wheeze, no rhonchi. Gastrointestinal abdomen soft, nontender, bowel sounds audible, no guarding , no rigidity. Extremities no? edema. Rectal examination unchanged, open wound on the left perianal wall measuring at least 4-5 cm in length Neuro nonfocal, moving all 4 extremity, speech clear. Skin no rash Psych poor insight Objective Data Active Medications Acetaminophen (Acetaminophen 325 Mg Tablet) 650 mg PO Q6H PRN PRN Reason: Pain, Mild (Pain Scale 1-3) Last Admin: 02/18/22 04:42 Dose: 650 mg Documented By: CORY Benzonatate (Benzonatate 100 Mg Capsule) 100 mg PO TID PRN PRN Reason: Cough Carvedilol (Carvedilol 6.25 Mg Tablet) 6.25 mg PO BID [facility]; Protocol Last Admin: 02/18/22 08:41 Dose: 6.25 mg Documented By: LORI Enalapril Maleate (Enalapril Maleate 2.5 Mg Tablet) 2.5 mg PO BID [facility]; Protocol Last Admin: 02/18/22 08:41 Dose: 2.5 mg Documented By: LORI Folic Acid (Folic Acid 1 Mg Tablet) 1 mg PO DAILY [facility] Last Admin: 02/18/22 08:41 Dose: 1 mg Documented By: LORI Piperacillin Sod/Tazobactam (Sod 3.375 gm/ Sodium Chloride) 50 mls @ 100 mls/hr IV Q6H [facility] Last Infusion: 02/18/22 11:44 Dose: 0 mls/hr Documented By: LORI Vancomycin HCl 1,250 mg/ (Sodium Chloride) 250 mls @ 166.667 mls/hr IV Q24H [facility] Melatonin (Melatonin 3 Mg Tablet) 3 mg PO BEDTIME PRN PRN Reason: Insomnia Omeprazole (Omeprazole 20 Mg Capsule.Dr) 20 mg PO DAILY@0630 [facility] Last Admin: 02/18/22 05:41 Dose: 20 mg Documented By: CORY Ondansetron HCl (Ondansetron Hcl 4 Mg/2 Ml Vial) 4 mg IVPUSH Q8H PRN PRN Reason: Nausea and Vomiting Pharmacy Consult (Consult Rx Perform Med Rec) 1 each MISCELLANE ONCE PRN PRN Reason: Consult order Pharmacy Consult (Consult Rx Vancomycin Dosing) 1 each MISCELLANE DAILY PRN PRN Reason: Consult order Sodium Chloride (0.9 % Sodium Chloride Flush 3 Ml Syringe) 3 ml IVFLUSH QSHIFT [facility] Last Admin: 02/18/22 08:41 Dose: 3 ml Documented By: LORI Tamsulosin HCl (Tamsulosin Hcl 0.4 Mg Capsule) 0.4 mg PO DAILY [facility] Last Admin: 02/18/22 08:41 Dose: 0.4 mg Documented By: LORI Labs CBC & Chem 7: 02/18/22 06:19 02/18/22 07:46 Labs: Laboratory Results - last 24 hr 02/17/22 02/17/22 02/17/22 13:05 13:05 13:05 MCV MCH MCHC RDW Plt Count MPV Immature Gran % (Auto) Neut % (Auto) Lymph % (Auto) [place] % (Auto) Eos % (Auto) Baso % (Auto) Lymph # (Auto) [place] # (Auto) Eos # (Auto) Baso # (Auto) Abs Immat Gran (auto) Absolute Neuts (auto) Absolute Nucleated RBC Nucleated RBC % (auto) PT 13.9 H INR 1.2 H APTT 31.9 Anion Gap 18 Estim Creat Clear Calc 41.4 Estimated GFR 44 Random Glucose 110 Lactic Acid Calcium 8.4 Magnesium Total Bilirubin Direct Bilirubin AST ALT Alkaline Phosphatase Total Creatine Kinase Total Protein Albumin Lipase Procalcitonin Urine Color Urine Appearance Urine pH Ur Specific [place] Urine Protein Urine Glucose (UA) Urine Ketones Urine Blood Urine Nitrite Ur Leukocyte Esterase Urine RBC Urine WBC Ur Squamous Epith Cells Urine Bacteria Hyaline Casts Ethyl Alcohol COVID-19 (SAY) Negative COVID-19 Clin Com See Note 02/17/22 02/17/22 02/17/22 13:05 14:05 14:41 MCV 83.8 MCH 27.9 MCHC 33.3 RDW 17.2 H Plt Count 344 MPV 10.2 Immature Gran % (Auto) 1.6 H Neut % (Auto) 71.8 Lymph % (Auto) 15.3 L [place] % (Auto) 10.1 Eos % (Auto) 0.9 Baso % (Auto) 0.3 Lymph # (Auto) 1.2 [place] # (Auto) 0.8 Eos # (Auto) 0.1 Baso # (Auto) 0.0 Abs Immat Gran (auto) 0.13 H Absolute Neuts (auto) 5.7 Absolute Nucleated RBC 0.000 Nucleated RBC % (auto) 0.0 PT INR APTT Anion Gap Estim Creat Clear Calc Estimated GFR Random Glucose Lactic Acid 1.3 Calcium Magnesium 1.8 Total Bilirubin 1.1 H Direct Bilirubin 0.5 AST 19 ALT 6 Alkaline Phosphatase 105 Total Creatine Kinase 16 L Total Protein 6.2 L Albumin 2.7 L Lipase 11 Procalcitonin Urine Color Urine Appearance Urine pH Ur Specific [place] Urine Protein Urine Glucose (UA) Urine Ketones Urine Blood Urine Nitrite Ur Leukocyte Esterase Urine RBC Urine WBC Ur Squamous Epith Cells Urine Bacteria Hyaline Casts Ethyl Alcohol < 10 COVID-19 (SAY) COVID-19 Clin Com 02/17/22 02/17/22 02/18/22 14:41 14:41 06:19 MCV 84.2 MCH 28.1 MCHC 33.3 RDW 17.5 H Plt Count 281 MPV 10.9 Immature Gran % (Auto) Neut % (Auto) Lymph % (Auto) [place] % (Auto) Eos % (Auto) Baso % (Auto) Lymph # (Auto) [place] # (Auto) Eos # (Auto) Baso # (Auto) Abs Immat Gran (auto) Absolute Neuts (auto) Absolute Nucleated RBC 0.000 Nucleated RBC % (auto) 0.0 PT INR APTT Anion Gap Estim Creat Clear Calc Estimated GFR Random Glucose Lactic Acid Calcium Magnesium Total Bilirubin Direct Bilirubin AST ALT Alkaline Phosphatase Total Creatine Kinase Total Protein Albumin Lipase Procalcitonin 0.15 Urine Color Dark Yellow Urine Appearance Clear Urine pH 5.0 Ur Specific [place] 1.015 Urine Protein Negative Urine Glucose (UA) Negative Urine Ketones Negative Urine Blood Negative Urine Nitrite Positive H Ur Leukocyte Esterase Large (3+) H Urine RBC 0-2 Urine WBC >50 H Ur Squamous Epith Cells 3-5 Urine Bacteria 3+ Hyaline Casts 0-2 Ethyl Alcohol COVID-19 (SAY) COVID-19 Clin Com 02/18/22 07:46 MCV MCH MCHC RDW Plt Count MPV Immature Gran % (Auto) Neut % (Auto) Lymph % (Auto) [place] % (Auto) Eos % (Auto) Baso % (Auto) Lymph # (Auto) [place] # (Auto) Eos # (Auto) Baso # (Auto) Abs Immat Gran (auto) Absolute Neuts (auto) Absolute Nucleated RBC Nucleated RBC % (auto) PT INR APTT Anion Gap 21 H Estim Creat Clear Calc 44.6 Estimated GFR 48 Random Glucose 68 D Lactic Acid Calcium 8.3 L Magnesium Total Bilirubin Direct Bilirubin AST ALT Alkaline Phosphatase Total Creatine Kinase Total Protein Albumin Lipase Procalcitonin Urine Color Urine Appearance Urine pH Ur Specific [place] Urine Protein Urine Glucose (UA) Urine Ketones Urine Blood Urine Nitrite Ur Leukocyte Esterase Urine RBC Urine WBC Ur Squamous Epith Cells Urine Bacteria Hyaline Casts Ethyl Alcohol COVID-19 (SAY) COVID-19 Clin Com Microbiology Microbiology Results: Microbiology 02/17/22 15:33 Urine Culture - Preliminary Urine clean catch - Urine bowers top Gram negative mendoza Assessment and Plan (1) Cellulitis of buttock: Status: Acute (2) Traumatic perforation of rectum: Status: Acute (3) Fall: Status: Acute (4) Acute UTI: Status: Acute (5) Open wnd of buttock: Status: Acute Plan 77-year-old gentleman with past medical history of heart failure with reduced EF status post pacemaker 2020 atrial fibrillation on Xarelto, chronic kidney disease stage 3 brought into [facility] by son since patient fell in [place] while intoxicated on concrete floor and developed open for wound with fecal drainage showing rectal perforation patient is being admitted to medical floor with close surgical follow-up. Open wound( left perianal wall) with Rectal perforation No change in patient's clinical condition no fevers, no chills, persistent open wound . Continue IV Zosyn and IV vancomycin day 2, blood cultures pending and urine Cultures growing Gram-negative mendoza 5200 1000 Case discussed with general surgery Dr. Connelly she recommend clear liquid diet, will continue Sitz baths 4 times a day, Will hold Xarelto for possible surgical intervention Follow CBC electrolytes and clinical course closely for any decompensation Chronic congestive heart failure with reduced EF No acute exacerbation Continue home medications including Coreg, ,vasotec, hold diuretics Chronic persistent atrial fibrillation rate controlled continue Coreg hold anticoagulation as above chronic kidney disease stage 3 stable with mild acidosis Noted to have mildly elevated anion gap will follow BMP renal function remains stable will add soda bicarb Mild to moderate pericardial effusion seen on abdominal and pelvic CT scan patient asymptomatic with no chest pain, will obtain cardiology consultation if planned for surgical procedure. UTI patient is a poor historian unable to obtain history regarding urinary s ymptoms UA is positive is on IV Zosyn that will cover will follow urine culture sensitivity and blood cultures Code status DNR DNI DVT prophylaxis hold anticoagulation for possible surgical intervention,on compression stockings Patient needs continued inpatient hospitalization due to perforated rectum with open Anal? wound, needs close clinical follow-up. Quality Stroke Does the patient have a stroke diagnosis?: No VTE Prior VTE?: No VTE Risk Level:: Medical - moderate - high VTE Device Contraindication: N/A - Device Ordered VTE Drug Contraindication: Treatment Not Indicated
[2022-02-18] MEDS: ondansetron HCL 4 MG/2 ML VIAL IVPUSH (14:17)
[2022-02-18] MEDS: vancomycin HCL 1,250 MG in 0.9 % Sodium Chloride 250 ML 166.67 MG IV (14:44)
--- NOTE | 2022-02-18 14:44 | PC.NURSE ---
pt drank apple juice, sitting upright, after finishing the juice pt began dry heaving with a wet cough. Md Velasco made aware. no need for CXR at this time, pt already on ABX. will continue to monitor, aspiration precautions in place.
--- NOTE | 2022-02-18 14:52 | P.PNGS_ITS ---
Subjective Subjective Date of Service: 02/19/22 Interval history: pt not complaining of abdo pain Physical Exam Vital Signs: Vital Signs: Last Vital Signs Temp 97.7 F 02/19/22 07:11 Pulse 62 02/19/22 07:11 Resp 17 02/19/22 07:11 BP 130/87 02/19/22 07:11 Pulse Ox 99 02/19/22 07:11 O2 Del Method 02/19/22 07:11 BMI result Body Mass Index 26.4 GI: Other: perirectal area on the left side open wound with significant leaking stool material and the area is tender belly is benign pt is coughing a lot Objective Data Active Medications Acetaminophen (Acetaminophen 325 Mg Tablet) 650 mg PO Q6H PRN PRN Reason: Pain, Mild (Pain Scale 1-3) Last Admin: 02/18/22 04:42 Dose: 650 mg Documented By: CORY Benzonatate (Benzonatate 100 Mg Capsule) 100 mg PO TID PRN PRN Reason: Cough Carvedilol (Carvedilol 6.25 Mg Tablet) 6.25 mg PO BID [facility]; Protocol Last Admin: 02/19/22 08:41 Dose: 6.25 mg Documented By: BAYRON Enalapril Maleate (Enalapril Maleate 2.5 Mg Tablet) 2.5 mg PO BID [facility]; Protocol Last Admin: 02/19/22 08:41 Dose: 2.5 mg Documented By: BAYRON Folic Acid (Folic Acid 1 Mg Tablet) 1 mg PO DAILY [facility] Last Admin: 02/19/22 08:41 Dose: 1 mg Documented By: BAYRON Piperacillin Sod/Tazobactam (Sod 3.375 gm/ Sodium Chloride) 50 mls @ 100 mls/hr IV Q6H [facility] Last Infusion: 02/19/22 02:39 Dose: 0 mls/hr Documented By: MARGARETTERINBeth Vancomycin HCl 1,250 mg/ (Sodium Chloride) 250 mls @ 166.667 mls/hr IV Q24H [facility] Last Infusion: 02/18/22 16:53 Dose: 0 mls/hr Documented By: LORI Melatonin (Melatonin 3 Mg Tablet) 3 mg PO BEDTIME PRN PRN Reason: Insomnia Morphine Sulfate (Morphine Sulfate 4 Mg/Ml Cartridge) 3 mg IVPUSH Q4H PRN; Protocol PRN Reason: Pain, Severe (Pain Scale 7-10) Last Admin: 02/19/22 00:02 Dose: 3 mg Documented By: ITZEL Omeprazole (Omeprazole 20 Mg Capsule.) 20 mg PO DAILY@0630 [facility] Last Admin: 02/19/22 05:21 Dose: Not Given Documented By: ITZEL Non-Admin Reason: Patient Refused Ondansetron HCl (Ondansetron Hcl 4 Mg/2 Ml Vial) 4 mg IVPUSH Q8H PRN PRN Reason: Nausea and Vomiting Last Admin: 02/18/22 14:17 Dose: 4 mg Documented By: LORI Oxycodone HCl (Oxycodone Hcl Immed Release 5 Mg Tablet) 5 mg PO Q6H PRN PRN Reason: Pain, Moderate (Pain Scale 4-6 Pharmacy Consult (Consult Rx Perform Med Rec) 1 each MISCELLANE ONCE PRN PRN Reason: Consult order Pharmacy Consult (Consult Rx Vancomycin Dosing) 1 each MISCELLANE DAILY PRN PRN Reason: Consult order Sodium Bicarbonate (Sodium Bicarbonate 650 Mg Tablet) 650 mg PO BID [facility] Last Admin: 02/19/22 08:41 Dose: 650 mg Documented By: BAYRON Sodium Chloride (0.9 % Sodium Chloride Flush 3 Ml Syringe) 3 ml IVFLUSH QSHIFT [facility] Last Admin: 02/19/22 08:40 Dose: 3 ml Documented By: BAYRON Tamsulosin HCl (Tamsulosin Hcl 0.4 Mg Capsule) 0.4 mg PO DAILY [facility] Last Admin: 02/19/22 08:40 Dose: 0.4 mg Documented By: BAYRON Labs CBC & Chem 7: 02/18/22 06:19 02/19/22 06:48 Labs: Laboratory Results - last 24 hr 02/18/22 02/19/22 07:46 06:48 Anion Gap 21 H 15 Estim Creat Clear Calc 44.6 47.9 Estimated GFR 48 52 Random Glucose 68 D 79 Calcium 8.3 L 8.4 Magnesium 1.9 Microbiology Microbiology Results: Microbiology 02/17/22 15:33 Urine Culture - Preliminary Urine clean catch - Urine bowers top Klebsiella pneumoniae 02/17/22 14:04 Blood Culture - Preliminary Blood - Venous No growth after 24 hours. 02/17/22 13:05 Blood Culture - Preliminary Blood - Venous No growth after 24 hours. Procedures Date of Service Date of Service: 02/18/22 Progress Note: A&P Assessment and plan (1) Traumatic perforation of rectum: Status: Acute Assessment and Plan: 77 year old male with medical issues. low EF and Afib anticoagulated and ETOH abuse with rectal perforation and area widely draining externally on buttock area. abdo benign and wbc normal - at this point cont to evaluate. Best would be some diverting ostomy but pt is high risk for surgery and no evidence of abdominal or pelvic sepsis. supportive care and try to get through etoh withdrawal. pt was ? aspirated with drinking liquids yest . hes on iv antibx and bowel rest to cont and reeval tomorrow. Time Spent With Patient Time: Total time spent is greater than 50% in coordination of care (as documented) at patient's floor/unit and/or counseling patient: Quality Stroke Does the patient have a stroke diagnosis?: No VTE Prior VTE?: No VTE Risk Level:: Medical - moderate - high VTE Device Contraindication: N/A - Device Ordered VTE Drug Contraindication: Treatment Not Indicated
[2022-02-18] MEDS: Morphine Sulfate 4 MG/ML CARTRIDGE 3 MG IVPUSH (16:25)
--- NOTE | 2022-02-18 16:50 | PC.NURSE ---
Dr. Connelly at bedside to see pt. recommended dressing - ABD pab placed and brief used as stabilization. pts wound open, leaking stool, erythema noted to area and swollen, pt medication with Morphine for pain
--- NOTE | 2022-02-18 20:30 | PC.NURSE ---
Attempt to call report to C
--- NOTE | 2022-02-18 21:17 | PC.NURSE ---
Attempted to call to get report X 2, no answer on phone.
[2022-02-18] MEDS: Sodium Bicarbonate 650 MG TABLET PO (22:01)
[2022-02-19] VITALS (11 sets, daily range): BP systolic 105–139; BP diastolic 65–87; PULSE 60–70; RESP 15–20; TEMP 36.2–36.8; O2SAT 97–99
[2022-02-19] MEDS: 0.9 % Sodium Chloride Flush 3 ML SYRINGE IVFLUSH ×4 (00:01→20:23)
[2022-02-19] MEDS: Morphine Sulfate 4 MG/ML CARTRIDGE 3 MG IVPUSH ×3 (00:02→22:19)
[2022-02-19] MEDS: Piperacillin Sodium/Tazobactam 3.375 GM in 0.9 % Sodium Chloride 50 ML IV ×3 (01:56→18:39)
[2022-02-19] MEDS: OLANZapine 10 MG VIAL 5 MG IM (03:25)
--- NOTE | 2022-02-19 03:42 | PC.NURSE ---
PT throwing IV pole and wash basin in room, PT soiled 2 staff tried to clean him up, PT became combative and was refusing, also PT took off tele pack and threw it and then refused to be put back on, notified, stat order for IM Zyprexa. Security stood in room and nurse calender supervisor Melissa and 3 other staff helped clean PT and PT was given IM by this RN, no issues, PT cooperated. Restraint paperwork filled out, VS monitored every 15 minutes, PT VSSMD to see PT within an hour.
[2022-02-19 07:25] LABS: Anion Gap 15 (12-20); Blood Urea Nitrogen 20 mg/dL (9-16); Calcium 8.4 mg/dL (8.4-10.2); Carbon Dioxide 20 mmol/L (22-29); Chloride 108 mmol/L (96-108); Creatinine Clr Calc Pharmacy 47.9; Estimated Glomerular Filt Rate 52; Glucose Random 79 mg/dL (60-115); Potassium 4.4 mmol/L (3.3-5.1); Sodium 139 mmol/L (135-145)
[2022-02-19 08:29] LABS: Magnesium 1.9 mg/dL (1.6-2.6)
[2022-02-19] MEDS: Tamsulosin HCL 0.4 MG CAPSULE PO (08:40)
[2022-02-19] MEDS: Folic Acid 1 MG TABLET PO (08:41)
[2022-02-19] MEDS: Sodium Bicarbonate 650 MG TABLET PO ×2 (08:41→20:17)
[2022-02-19] MEDS: carvediloL 6.25 MG TABLET PO ×2 (08:41→20:34)
--- NOTE | 2022-02-19 09:51 | MHC.CM.PN ---
met with pt who lives with his son he has no servcies he is not covid vax it is expected that he will be seen by care team prior to dc
--- NOTE | 2022-02-19 11:04 | HO.PM.IMPN ---
Subjective Subjective Date of Service: 02/19/22 Interval History: Patient awake alert. offers no acute complaints, tolerating diet. had large bowel movement last night, denies lower back pain has pain only with movement, no fevers ,no chills ,no other acute issues. 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 resting comfortably in no acute distress.? Neck supple no JVD. CVS? regular rate rhythm, Respiratory lungs clear to auscultation, no respiratory distress, no wheeze, no rhonchi. Gastrointestinal abdomen soft, nontender, bowel sounds audible, no guarding , no rigidity. Extremities no? edema. Rectal examination patient declined examination due to pain Neuro nonfocal, moving all 4 extremity, speech clear. Skin no rash Psych poor insight Objective Data Active Medications Acetaminophen (Acetaminophen 325 Mg Tablet) 650 mg PO Q6H PRN PRN Reason: Pain, Mild (Pain Scale 1-3) Last Admin: 02/18/22 04:42 Dose: 650 mg Documented By: CORY Benzonatate (Benzonatate 100 Mg Capsule) 100 mg PO TID PRN PRN Reason: Cough Carvedilol (Carvedilol 6.25 Mg Tablet) 6.25 mg PO BID [facility]; Protocol Last Admin: 02/19/22 08:41 Dose: 6.25 mg Documented By: BAYRON Enalapril Maleate (Enalapril Maleate 2.5 Mg Tablet) 2.5 mg PO BID [facility]; Protocol Last Admin: 02/19/22 08:41 Dose: 2.5 mg Documented By: BAYRON Folic Acid (Folic Acid 1 Mg Tablet) 1 mg PO DAILY [facility] Last Admin: 02/19/22 08:41 Dose: 1 mg Documented By: BAYRON Piperacillin Sod/Tazobactam (Sod 3.375 gm/ Sodium Chloride) 50 mls @ 100 mls/hr IV Q6H [facility] Last Infusion: 02/19/22 02:39 Dose: 0 mls/hr Documented By: ITZEL Vancomycin HCl 1,250 mg/ (Sodium Chloride) 250 mls @ 166.667 mls/hr IV Q24H [facility] Last Infusion: 02/18/22 16:53 Dose: 0 mls/hr Documented By: LORI Melatonin (Melatonin 3 Mg Tablet) 3 mg PO BEDTIME PRN PRN Reason: Insomnia Morphine Sulfate (Morphine Sulfate 4 Mg/Ml Cartridge) 3 mg IVPUSH Q4H PRN; Protocol PRN Reason: Pain, Severe (Pain Scale 7-10) Last Admin: 02/19/22 00:02 Dose: 3 mg Documented By: ITZEL Omeprazole (Omeprazole 20 Mg Capsule.Dr) 20 mg PO DAILY@0630 [facility] Last Admin: 02/19/22 05:21 Dose: Not Given Documented By: ITZEL Non-Admin Reason: Patient Refused Ondansetron HCl (Ondansetron Hcl 4 Mg/2 Ml Vial) 4 mg IVPUSH Q8H PRN PRN Reason: Nausea and Vomiting Last Admin: 02/18/22 14:17 Dose: 4 mg Documented By: LORI Oxycodone HCl (Oxycodone Hcl Immed Release 5 Mg Tablet) 5 mg PO Q6H PRN PRN Reason: Pain, Moderate (Pain Scale 4-6 Pharmacy Consult (Consult Rx Perform Med Rec) 1 each MISCELLANE ONCE PRN PRN Reason: Consult order Pharmacy Consult (Consult Rx Vancomycin Dosing) 1 each MISCELLANE DAILY PRN PRN Reason: Consult order Sodium Bicarbonate (Sodium Bicarbonate 650 Mg Tablet) 650 mg PO BID [facility] Last Admin: 02/19/22 08:41 Dose: 650 mg Documented By: BAYRON Sodium Chloride (0.9 % Sodium Chloride Flush 3 Ml Syringe) 3 ml IVFLUSH QSHIFT [facility] Last Admin: 02/19/22 08:40 Dose: 3 ml Documented By: BAYRON Tamsulosin HCl (Tamsulosin Hcl 0.4 Mg Capsule) 0.4 mg PO DAILY [facility] Last Admin: 02/19/22 08:40 Dose: 0.4 mg Documented By: BAYRON Labs CBC & Chem 7: 02/18/22 06:19 02/19/22 06:48 Labs: Laboratory Results - last 24 hr 02/19/22 06:48 Anion Gap 15 Estim Creat Clear Calc 47.9 Estimated GFR 52 Random Glucose 79 Calcium 8.4 Magnesium 1.9 Microbiology Microbiology Results: Microbiology 02/17/22 15:33 Urine Culture - Preliminary Urine clean catch - Urine bowers top Klebsiella pneumoniae 02/17/22 14:04 Blood Culture - Preliminary Blood - Venous No growth after 24 hours. 02/17/22 13:05 Blood Culture - Preliminary Blood - Venous No growth after 24 hours. Assessment and Plan (1) Cellulitis of buttock: Status: Acute (2) Traumatic perforation of rectum: Status: Acute (3) Fall: Status: Acute (4) Acute UTI: Status: Acute (5) Open wnd of buttock: Status: Acute Plan 77-year-old gentleman with past medical history of heart failure with reduced EF status post pacemaker 2020 atrial fibrillation on Xarelto, chronic kidney disease stage 3 brought into [facility] by son since patient fell in [place] while intoxicated on concrete floor and developed open for wound with fecal drainage showing rectal perforation patient is being admitted to medical floor with close surgical follow-up. Open wound( left perianal wall) with Rectal perforation No change in patient's clinical condition no fevers, no chills, persistent open wound . Continue IV Zosyn and IV vancomycin day 3, blood cultures neg so far, and urine Cultures grew Klebsiella pneumonia 50,000 to 100,000 Case discussed with general surgery Dr. Connelly she recommend clear liquid diet, will continue Sitz baths 4 times a day, Will hold Xarelto for possible surgical intervention Follow CBC electrolytes and clinical course closely for any decompensation Chronic congestive heart failure with reduced EF No acute exacerbation Continue home medications including Coreg, ,vasotec, hold diuretics Chronic persistent atrial fibrillation rate controlled continue Coreg hold anticoagulation as above chronic kidney disease stage 3 stable with mild acidosis anion gap resolved/bicarb improved to 20, continue soda bicarb will follow BMP renal function remains stable Mild to moderate pericardial effusion seen on abdominal and pelvic CT scan patient asymptomatic with no chest pain, will obtain cardiology consultation if planned for surgical procedure. UTI patient is a poor historian unable to obtain history regarding urinary symptoms UA is positive is on IV Zosyn that will cover will follow final urine culture Code status DNR DNI DVT prophylaxis hold anticoagulation for possible surgical intervention,on compression stockings Patient needs continued inpatient hospitalization due to perforated rectum with open Anal? wound, needs close clinical follow-up. Quality Stroke Does the patient have a stroke diagnosis?: No VTE Prior VTE?: No VTE Risk Level:: Medical - moderate - high VTE Device Contraindication: N/A - Device Ordered VTE Drug Contraindication: Treatment Not Indicated
--- NOTE | 2022-02-19 14:12 | PM.PNGS ---
Subjective Subjective Date of Service: 02/19/22 Interval history: pt overnight was delerious and disruptive but settled down today. doing better tolerating some clear liquids. still significant stool material coming out of the area off to the side of anus Physical Exam Vital Signs: Vital Signs: Last Vital Signs Temp 98.2 F 02/19/22 11:58 Pulse 70 02/19/22 11:58 Resp 15 02/19/22 11:58 BP 138/75 02/19/22 11:58 Pulse Ox 99 02/19/22 11:58 O2 Del Method 02/19/22 11:58 BMI result Body Mass Index 26.4 GI: Other: abdo benign Objective Data Active Medications Acetaminophen (Acetaminophen 325 Mg Tablet) 650 mg PO Q6H PRN PRN Reason: Pain, Mild (Pain Scale 1-3) Last Admin: 02/18/22 04:42 Dose: 650 mg Documented By: CORY Benzonatate (Benzonatate 100 Mg Capsule) 100 mg PO TID PRN PRN Reason: Cough Carvedilol (Carvedilol 6.25 Mg Tablet) 6.25 mg PO BID [facility]; Protocol Last Admin: 02/19/22 08:41 Dose: 6.25 mg Documented By: BAYRON Enalapril Maleate (Enalapril Maleate 2.5 Mg Tablet) 2.5 mg PO BID [facility]; Protocol Last Admin: 02/19/22 08:41 Dose: 2.5 mg Documented By: BAYRON Folic Acid (Folic Acid 1 Mg Tablet) 1 mg PO DAILY [facility] Last Admin: 02/19/22 08:41 Dose: 1 mg Documented By: BAYRON Vancomycin HCl 1,250 mg/ (Sodium Chloride) 250 mls @ 166.667 mls/hr IV Q24H [facility] Last Infusion: 02/18/22 16:53 Dose: 0 mls/hr Documented By: LORI Piperacillin Sod/Tazobactam (Sod 3.375 gm/ Sodium Chloride) 50 mls @ 100 mls/hr IV Q6H [facility] Melatonin (Melatonin 3 Mg Tablet) 3 mg PO BEDTIME PRN PRN Reason: Insomnia Morphine Sulfate (Morphine Sulfate 4 Mg/Ml Cartridge) 3 mg IVPUSH Q4H PRN; Protocol PRN Reason: Pain, Severe (Pain Scale 7-10) Last Admin: 02/19/22 00:02 Dose: 3 mg Documented By: ITZEL Omeprazole (Omeprazole 20 Mg Capsule.) 20 mg PO DAILY@0630 [facility] Last Admin: 02/19/22 05:21 Dose: Not Given Documented By: ITZEL Non-Admin Reason: Patient Refused Ondansetron HCl (Ondansetron Hcl 4 Mg/2 Ml Vial) 4 mg IVPUSH Q8H PRN PRN Reason: Nausea and Vomiting Last Admin: 02/18/22 14:17 Dose: 4 mg Documented By: LORI Oxycodone HCl (Oxycodone Hcl Immed Release 5 Mg Tablet) 5 mg PO Q6H PRN PRN Reason: Pain, Moderate (Pain Scale 4-6 Pharmacy Consult (Consult Rx Perform Med Rec) 1 each MISCELLANE ONCE PRN PRN Reason: Consult order Pharmacy Consult (Consult Rx Vancomycin Dosing) 1 each MISCELLANE DAILY PRN PRN Reason: Consult order Sodium Bicarbonate (Sodium Bicarbonate 650 Mg Tablet) 650 mg PO BID [facility] Last Admin: 02/19/22 08:41 Dose: 650 mg Documented By: BAYRON Sodium Chloride (0.9 % Sodium Chloride Flush 3 Ml Syringe) 3 ml IVFLUSH QSHIFT [facility] Last Admin: 02/19/22 08:40 Dose: 3 ml Documented By: BAYRON Tamsulosin HCl (Tamsulosin Hcl 0.4 Mg Capsule) 0.4 mg PO DAILY [facility] Last Admin: 02/19/22 08:40 Dose: 0.4 mg Documented By: BAYRON Labs CBC & Chem 7: 02/18/22 06:19 02/19/22 06:48 Labs: Laboratory Results - last 24 hr 02/19/22 06:48 Anion Gap 15 Estim Creat Clear Calc 47.9 Estimated GFR 52 Random Glucose 79 Calcium 8.4 Magnesium 1.9 Microbiology Microbiology Results: Microbiology 02/17/22 15:33 Urine Culture - Preliminary Urine clean catch - Urine bowers top Klebsiella pneumoniae 02/17/22 14:04 Blood Culture - Preliminary Blood - Venous No growth after 24 hours. 02/17/22 13:05 Blood Culture - Preliminary Blood - Venous No growth after 24 hours. Procedures Date of Service Date of Service: 02/19/22 Progress Note: A&P Assessment and plan (1) Traumatic perforation of rectum: Status: Acute Assessment and Plan: pt with perforated rectum - the injury seems suspicious for the description but there is a large area where stool is exiting. im not sure this will close on its own and pt most likely will need diversion. will discuss with surgical team. med team to consult cardiology to determine clearance Time Spent With Patient Time: Total time spent is greater than 50% in coordination of care (as documented) at patient's floor/unit and/or counseling patient: Quality Stroke Does the patient have a stroke diagnosis?: No VTE Prior VTE?: No VTE Risk Level:: Medical - moderate - high VTE Device Contraindication: N/A - Device Ordered VTE Drug Contraindication: Treatment Not Indicated
[2022-02-19] MEDS: vancomycin HCL 1,250 MG in 0.9 % Sodium Chloride 250 ML 166.66 MG IV (15:09)
[2022-02-19] MEDS: oxyCODONE HCl Immed Release 5 MG TABLET PO (20:18)
[2022-02-20] MEDS: Piperacillin Sodium/Tazobactam 3.375 GM in 0.9 % Sodium Chloride 50 ML IV ×3 (01:19→12:46)
[2022-02-20 03:21] VITALS: BP 128/71; PULSE 71; RESP 18; TEMP 37.2; O2SAT 98
[2022-02-20] MEDS: Omeprazole 20 MG CAPSULE.DR PO (06:07)
[2022-02-20 07:13] LABS: Creatinine Clr Calc Pharmacy 49.4; Estimated Glomerular Filt Rate 54
[2022-02-20 07:59] VITALS: BP 132/80; PULSE 58; RESP 20; TEMP 35.9; O2SAT 96
--- NOTE | 2022-02-20 09:13 | CA_ITS ---
Transthoracic Echocardiogram Patient (Last, First, Middle): Pancho Huang, Gender: Male Date of : 1945 Age: 77 Procedure Date: 02/20/2022 Procedure Type: Transthoracic Echocardiogram Location: [facility] [place] Height: 180. cm Weight: 86. kg BSA: 2.06 m2 Heart Rate: 62 bpm BP: 132 / 80 mmHg [employer]: JOEY Referring MD: James Mejia MD Symptoms: pericardial effusion Study Quality: Adequate ECG Rhythm: Ventriculary paced rhythm Conclusions: - The left ventricular systolic function is severely decreased. The visually estimated ejection fraction is between 15-20%. - There is severe global hypokinesis. - The inferolateral wall, the basal inferior, basal anteroseptal, and mid anteroseptal segments are akinetic. - Severe biatrial enlargement. - There is mild to moderate aortic valve regurgitation. - There is moderate mitral valve regurgitation. - There is mild to moderate tricuspid valve regurgitation. - Mild pulmonary hypertension is present. - There is moderate dilatation of the sinuses of Valsalva measuring 4.80 cm and severe dilatation of the ascending aorta measuring 5.00 cm. - There is a small circumferential pericardial effusion. Findings Left Ventricle Severely increased left ventricular cavity size. There is mildly increased left ventricular wall thickness. The left ventricular systolic function is severely decreased. The visually estimated ejection fraction is between 15 20%. There is severe global hypokinesis. Diastolic function is indeterminate on the basis of available data. There is moderate septal asymmetric hypertrophy. Wall Motion Rest Echo Findings The inferolateral wall, the basal inferior, basal anteroseptal, and mid anteroseptal segments are akinetic. Right Ventricle Moderately increased right ventricular cavity size. There is severely decreased right ventricular systolic function. Atria Severe biatrial enlargement. Aortic Valve There is a normal trileaflet aortic valve. There is mild calcification of the aortic valve. There is mild to moderate aortic valve regurgitation. Mitral Valve There is mild posterior mitral leaflet thickening. There is mild mitral annular calcification. There is moderate mitral valve regurgitation. There is no mitral valve stenosis. Pulmonic Valve There is mild pulmonic valve regurgitation. Tricuspid Valve Normal tricuspid valve structure. There is mild to moderate tricuspid valve regurgitation. Mild pulmonary hypertension is present. Great Vessels There is moderate dilatation of the sinuses of Valsalva measuring 4.80 cm and severe dilatation of the ascending aorta measuring 5.00 cm. Venous The inferior vena cava is dilated and does not collapse with inspiration. Pericardium/Pleural There is a small circumferential pericardial effusion. Prior Study Comparison No prior study available for comparison. Measurements 2D Linear Measurements IVSd: 1.36 0.6-0.9/0.6-1.0 cm LVIDd: 7.19 3.9-5.3/4.2-5.9 cm LVIDd Index: 3.49 2.4-3.2/2.2-3.1 cm/m2 LVIDs: 6.23 2.0-3.6 cm LVPWd: 1.19 0.7-1.1 cm LA Diam: 5.00 2.7-3.8/3.0-4.0 cm LAIDs Index: 2.43 1.5-2.3 cm/m2 LV Mass: 574.41 67-162/88-224 g LV Mass Index: 278.84 43-95/49-115 g/m2 LVOT Diam: 2.40 3.0+(-)1.3 cm 2D Systolic Function EF 4C: 27.40 >55% EF 2C: 35.90 >55% Mitral Valve MV VTI: 0.27 MV Pk Twan: 1.19 MV Mn Twan: 0.55 MV Pk Grad: 6.00 MV Mn Grad: 2.00 MV Pk E: 0.87 MV PK A: 0.35 MV Decel Time: 198.00 E/A: 2.50 E'Lateral: 11.00 E'Medial: 4.43 E/E' Med: 19.60 E/E' Lat: 7.90 PHT: 58.00 MVA PHT: 3.79 MVA Continuity: 2.38 Decel [place]: 4.38 MR Vol - PW Dopp: 19.91 MR VTI: 1.81 MR ERO: 11.00 MR Alias Twan: 0.39 MR RAD: 0.50 Aortic Valve AoV Pk Twan: 1.85 AoV Mn Twan: 1.35 AoV VTI: 0.30 AoV Pk Grad: 14.00 Aov Mn Grad: 8.00 KAYLIN Cont.VTI: 2.13 AI Pk Twan: 4.12 AI [place]: 0.88 LVOT LVOT Pk Twan: 0.94 LVOT Mn Twan: 0.63 LVOT VTI: 0.14 LVOT Pk Grad: 4.00 LVOT Mn Grad: 2.00 LVOT Diam: 2.40 LVOT Area: 4.52 Diastolic Function MV Pk E: 0.87 MV Pk A: 0.35 E/A: 2.50 E'Medial: 4.43 E/E' Med: 19.60 E' Laterial: 11.00 E/E' Lat: 7.90 Right Ventricle TAPSE (mm): 8.40 TVS' Twan: 7.65 Tricuspid Valve TR Pk Twan: 2.77 TR Pk Grad: 31.00 RA Press: 15.00 RVSP: 46.00 Great Vessels Aorta Sinus of Valsalva: 4.80 2.0-3.5 cm Ao Asc: 5.00 2.1-3.4 cm Pulmonary Valve PV Pk Twan: 1.09 Peak PV Grad: 5.00 Updated in Other Vendor System with Status of Final James Mejia MD electronically signed on 02/20/2022 1:59:45 PM with status of Final
[2022-02-20] MEDS: carvediloL 6.25 MG TABLET PO ×2 (10:12→22:17)
[2022-02-20] MEDS: Tamsulosin HCL 0.4 MG CAPSULE PO (10:12)
[2022-02-20] MEDS: Sodium Bicarbonate 650 MG TABLET PO ×2 (10:12→22:16)
[2022-02-20] MEDS: Folic Acid 1 MG TABLET PO (10:12)
[2022-02-20] MEDS: 0.9 % Sodium Chloride Flush 3 ML SYRINGE IVFLUSH (10:14)
--- NOTE | 2022-02-20 10:44 | PM.CNCAR ---
History of Present Illness History of Present Illness Date of Service: 02/20/22 Chief complaint: Perforation of rectum Narrative: This is a cardiology consultation for possible surgery on perforated rectum. Patient is a very poor historian not able to give much of information. Reviewed cardiology note from [facility], March 2021. Based on that, it seems that he has a history of severe cardiomyopathy with LVEF of 10-15%. Grade 3 diastolic dysfunction. Atrial fibrillation on Coumadin. Severe mitral regurgitation, moderate to severe tricuspid regurgitation as well as pulmonary hypertension. Dementia. He also has a pacemaker versus ICD. Patient himself does not really know much. He is not able to give much of information about his heart and cannot say as to who follows him either. At this time, the question is regarding preoperative evaluation. Patient is denying any cardiac symptoms at this time like angina or shortness of breath or in fact anything cardiac at all. Review of Systems Review of Systems: Yes all other systems are reviewed and are negative Constitutional: Constitutional: Reports as per HPI Eyes: Eyes: Reports as per HPI ENT: Reports as per HPI Cardiovascular: Cardiovascular: Reports as per HPI, Denies acrocyanosis, Denies cool extremities, Denies chest pain, Denies leg edema, Denies lightheadedness, Denies palpitations and Denies dyspnea Respiratory: Respiratory: Reports as per HPI, Reports no additional respiratory complaints and Denies dyspnea Gastrointestinal: Gastrointestinal: Reports as per HPI and Reports no additional gastrointestinal complaints Genitourinary: Genitourinary: Reports no additional male genitourinary complaints and Reports as per HPI Musculoskeletal: Musculoskeletal: Reports no additional musculoskeletal complaints and Reports as per HPI Integumentary/Breasts: Skin/Breast: Reports system reviewed and no additional complaints, except as docu Neurologic: Reports system reviewed and no additional complaints, except as documented and Reports as per HPI Psychiatric: Psychiatric: Reports no additional psychiatric complaints and Reports as per HPI Endocrine: Endocrine: Reports no additional endocrine complaints, Reports as per HPI and Denies palpitations Hematologic/Lymphatic: Hematologic/Lymphatic: Reports no additional hematologic/lymphatic complaints and Reports as per HPI Allergic/Immunologic: Allergic/Immunologic: Reports no additional allergic/immunologic complaints and Reports as per HPI [facility] Past Medical History Medical History (Updated 02/20/22 @ 10:51 by James Mejia MD) Afib Alcohol abuse Anticoagulant long-term use BPH (benign prostatic hyperplasia) Cardiomyopathy CKD (chronic kidney disease) ESBL (extended spectrum beta-lactamase) producing bacteria infection HTN (hypertension) Pacemaker Family History Family History (Updated 02/20/22 @ 10:47 by James Mejia MD) Mother Lung abnormality Pertinent family history: Vague family history. Apparently mother of pulmonary issues per prior documentation. Social History Social History Household Members: Unknown / Unable to assess Housing: Unknown / Unable to assess Unable to assess alcohol history related to: Refusing to respond Alcohol intake: former Patient Tobacco Use Status: Former Tobacco user service: No Meds Allergies Allergy/AdvReac Type Severity Reaction Status Date / Time No Known Allergies Allergy Verified 02/17/22 12:33 Active Medications: Current Medications Acetaminophen (Acetaminophen 325 Mg Tablet) 650 mg PO Q6H PRN PRN Reason: Pain, Mild (Pain Scale 1-3) Last Admin: 02/18/22 04:42 Dose: 650 mg Benzonatate (Benzonatate 100 Mg Capsule) 100 mg PO TID PRN PRN Reason: Cough Carvedilol (Carvedilol 6.25 Mg Tablet) 6.25 mg PO BID [facility]; Protocol Last Admin: 02/20/22 10:12 Dose: 6.25 mg Enalapril Maleate (Enalapril Maleate 2.5 Mg Tablet) 2.5 mg PO BID [facility]; Protocol Last Admin: 02/20/22 10:12 Dose: 2.5 mg Folic Acid (Folic Acid 1 Mg Tablet) 1 mg PO DAILY [facility] Last Admin: 02/20/22 10:12 Dose: 1 mg Vancomycin HCl 1,250 mg/ (Sodium Chloride) 250 mls @ 166.667 mls/hr IV Q24H [facility] Last Infusion: 02/19/22 16:47 Dose: Infused Piperacillin Sod/Tazobactam (Sod 3.375 gm/ Sodium Chloride) 50 mls @ 100 mls/hr IV Q6H [facility] Last Infusion: 02/20/22 06:40 Dose: Infused Melatonin (Melatonin 3 Mg Tablet) 3 mg PO BEDTIME PRN PRN Reason: Insomnia Morphine Sulfate (Morphine Sulfate 4 Mg/Ml Cartridge) 3 mg IVPUSH Q4H PRN; Protocol PRN Reason: Pain, Severe (Pain Scale 7-10) Last Admin: 02/19/22 22:19 Dose: 3 mg Omeprazole (Omeprazole 20 Mg Capsule.Dr) 20 mg PO DAILY@0630 [facility] Last Admin: 02/20/22 06:07 Dose: 20 mg Ondansetron HCl (Ondansetron Hcl 4 Mg/2 Ml Vial) 4 mg IVPUSH Q8H PRN PRN Reason: Nausea and Vomiting Last Admin: 02/18/22 14:17 Dose: 4 mg Oxycodone HCl (Oxycodone Hcl Immed Release 5 Mg Tablet) 5 mg PO Q6H PRN PRN Reason: Pain, Moderate (Pain Scale 4-6 Last Admin: 02/19/22 20:18 Dose: 5 mg Pharmacy Consult (Consult Rx Perform Med Rec) 1 each MISCELLANE ONCE PRN PRN Reason: Consult order Pharmacy Consult (Consult Rx Vancomycin Dosing) 1 each MISCELLANE DAILY PRN PRN Reason: Consult order Sodium Bicarbonate (Sodium Bicarbonate 650 Mg Tablet) 650 mg PO BID [facility] Last Admin: 02/20/22 10:12 Dose: 650 mg Sodium Chloride (0.9 % Sodium Chloride Flush 3 Ml Syringe) [facility] Last Admin: 02/20/22 10:14 Dose: 3 ml Tamsulosin HCl (Tamsulosin Hcl 0.4 Mg Capsule) 0.4 mg PO DAILY [facility] Last Admin: 02/20/22 10:12 Dose: 0.4 mg Home Medications Medication Instructions Recorded Confirmed Last Taken Type acetaminophen 325 mg tablet 650 mg PO Q6H PRN Pain 02/17/22 02/17/22 Unknown History carvedilol 6.25 mg tablet 1 tab PO BID 02/17/22 02/17/22 02/17/22 History enalapril maleate 2.5 mg tablet 1 tab PO BID 02/17/22 02/17/22 02/17/22 History folic acid 1 mg tablet 1 tab PO DAILY 02/17/22 02/17/22 02/17/22 History furosemide 80 mg tablet 1 tab PO BID 02/17/22 02/17/22 02/17/22 History omeprazole 20 mg capsule,delayed 20 mg PO DAILY@0630 02/17/22 02/17/22 Unknown History release rivaroxaban 15 mg tablet (Xarelto) 15 mg PO DAILY@1700 02/17/22 02/17/22 Unknown History spironolactone 25 mg tablet 1 tab PO DAILY 02/17/22 02/17/22 02/17/22 History tamsulosin 0.4 mg capsule 1 cap PO DAILY 02/17/22 02/17/22 02/17/22 History Physical Exam Vital Signs: Vital Signs: Last Vital Signs Temp 96.6 F L 02/20/22 07:59 Pulse 58 02/20/22 07:59 Resp 20 02/20/22 07:59 BP 132/80 02/20/22 07:59 Pulse Ox 96 02/20/22 07:59 O2 Del Method 02/20/22 07:59 BMI result Body Mass Index 26.4 Const: Other: Somewhat oriented and answering questions but not completely. General: comfortable and no acute distress HEENT: Other: Unremarkable Head: Yes normal to inspection Neck: Neck: Yes normal visual inspection Chest: Chest palpation & inspection: normal inspection of the chest Resp: Auscultation: clear to auscultation bilaterally Cardio: Palpation: normal PMI Heart sounds: S1 normal heart sound present, S2 normal heart sound present, no gallops, Murmur heart sound present systolic II/ and no rubs GI: Palpation (GI): Soft to palpation Back/Spine/Pelvis: Other: unremarkable Skin: General skin exam: no rashes or lesions noted Neuro: General: moves all extremities Extrem: General: Yes normal to inspection Psych: Mental Status: mental status grossly abnormal Objective Labs and Meds Result diagrams: 02/18/22 06:19 02/20/22 06:27 Lab results: Laboratory Results - last 24 hr 02/20/22 06:27 Creatinine 1.29 Estim Creat Clear Calc 49.4 Estimated GFR 54 ECG Interpretation: EKG with ventricular paced rhythm at 79/Min. Atrial rhythm is not clear. Assessment and Plan (1) Preoperative cardiovascular examination: Status: Acute (2) Cardiomyopathy: Status: Acute (3) Afib: Status: Acute (4) Traumatic perforation of rectum: Status: Acute Plan EKG reveals a ventricular paced rhythm. Echocardiogram from [facility]-10/2020 with severely impaired LVEF at 10-15%. There is grade 3 diastolic dysfunction. LA severely dilated. Moderate aortic regurgitation. Severe mitral regurgitation. RV size systolic function moderately reduced. There is moderate to severe tricuspid regurgitation and moderate pulmonary hypertension. Can at least get a chest x-ray to assess pacer/ICD. Will need to see when this was last interrogated. Repeat echocardiogram. Will follow up with you. Procedures Date of Service Date of Service: 02/20/22
[2022-02-20 11:43] VITALS: BP 123/82; PULSE 61; RESP 18; TEMP 35.9; O2SAT 97
[2022-02-20 13:25] LABS: Vancomycin Trough 20.8 mcg/mL (10.0-20.0)
--- NOTE | 2022-02-20 13:33 | HE.PHANOTE ---
Vancomycin Dosing Addendum Vancomycin trough 20.8. Decreased dose to 1000 mg q24h and waited for start next dose until 6 hours after dose was due. Creatinine trending down. predicted auc 517. next trough 02/21/22 @1900
--- NOTE | 2022-02-20 13:58 | HO.PM.IMPN ---
Subjective Subjective Date of Service: 02/20/22 Interval History: Resting comfortably no acute issues overnight, noted to large ground liquidy bowel movement, was made NPO this morning for possible surgery but since cardiology working cardiac clearance, will place him on clear liquid diet. Patient denies Pain, no overnight fever chills. Review of Systems Review of Systems: Yes all other systems are reviewed and are negative Physical Exam Vital Signs: Vital Signs: Last Vital Signs Temp 96.7 F L 02/20/22 11:43 Pulse 61 02/20/22 11:43 Resp 18 02/20/22 11:43 BP 123/82 02/20/22 11:43 Pulse Ox 97 02/20/22 11:43 O2 Del Method 02/20/22 11:43 BMI result Body Mass Index 26.4 Const: Other: General? resting c omfortably in no a cute distress.? Ne ck supple no JVD. CVS? regular rate rhythm, Respirator y lungs clear to a uscultation, no re spiratory distress , no wheeze, no rh onchi. Gastrointes tinal abdomen soft , nontender, bowel sounds audible, n o guarding , no ri gidity. Extremitie s no? edema. Recta l exam patient dec lined examination due to pain Neuro nonfocal, moving a ll 4 extremity, sp eech clear. Skin n o rash Psych poor insight Objective Data Active Medications Acetaminophen (Acetaminophen 325 Mg Tablet) 650 mg PO Q6H PRN PRN Reason: Pain, Mild (Pain Scale 1-3) Last Admin: 02/18/22 04:42 Dose: 650 mg Documented By: CORY Benzonatate (Benzonatate 100 Mg Capsule) 100 mg PO TID PRN PRN Reason: Cough Carvedilol (Carvedilol 6.25 Mg Tablet) 6.25 mg PO BID REPLACED BY [facility]; Protocol Last Admin: 02/20/22 10:12 Dose: 6.25 mg Documented By: BAYRON Enalapril Maleate (Enalapril Maleate 2.5 Mg Tablet) 2.5 mg PO BID REPLACED BY [facility]; Protocol Last Admin: 02/20/22 10:12 Dose: 2.5 mg Documented By: BAYRON Folic Acid (Folic Acid 1 Mg Tablet) 1 mg PO DAILY REPLACED BY [facility] Last Admin: 02/20/22 10:12 Dose: 1 mg Documented By: BAYRON Piperacillin Sod/Tazobactam (Sod 3.375 gm/ Sodium Chloride) 50 mls @ 100 mls/hr IV Q6H [facility]PLACED BY [facility] Last Infusion: 02/20/22 13:19 Dose: 0 mls/hr Documented By: BAYRON Vancomycin HCl 1,000 mg/ (Sodium Chloride) 270 mls @ 270 mls/hr IV Q24H REPLACED BY [facility] Melatonin (Melatonin 3 Mg Tablet) 3 mg PO BEDTIME PRN PRN Reason: Insomnia Morphine Sulfate (Morphine Sulfate 4 Mg/Ml Cartridge) 3 mg IVPUSH Q4H PRN; Protocol PRN Reason: Pain, Severe (Pain Scale 7-10) Last Admin: 02/19/22 22:19 Dose: 3 mg Documented By: DEIRDRE Omeprazole (Omeprazole 20 Mg Capsule.Dr) 20 mg PO DAILY@0630 [facility]PL[facility]ED BY [facility] Last Admin: 02/20/22 06:07 Dose: 20 mg Documented By: DEIRDRE Ondansetron HCl (Ondansetron Hcl 4 Mg/2 Ml Vial) 4 mg IVPUSH Q8H PRN PRN Reason: Nausea and Vomiting Last Admin: 02/18/22 14:17 Dose: 4 mg Documented By: LORI Oxycodone HCl (Oxycodone Hcl Immed Release 5 Mg Tablet) 5 mg PO Q6H PRN PRN Reason: Pain, Moderate (Pain Scale 4-6 Last Admin: 02/19/22 20:18 Dose: 5 mg Documented By: DEIRDRE Pharmacy Consult (Consult Rx Perform Med Rec) 1 each MISCELLANE ONCE PRN PRN Reason: Consult order Pharmacy Consult (Consult Rx Vancomycin Dosing) 1 each MISCELLANE DAILY PRN PRN Reason: Consult order Sodium Bicarbonate (Sodium Bicarbonate 650 Mg Tablet) 650 mg PO BID [facility]PLACED BY [facility] Last Admin: 02/20/22 10:12 Dose: 650 mg Documented By: BAYRON Sodium Chloride (0.9 % Sodium Chloride Flush 3 Ml Syringe) 3 ml IVFLUSH QSHIFT REPLACED BY [facility] Last Admin: 02/20/22 10:14 Dose: 3 ml Documented By: BAYRON Tamsulosin HCl (Tamsulosin Hcl 0.4 Mg Capsule) 0.4 mg PO DAILY REPLACED BY [facility] Last Admin: 02/20/22 10:12 Dose: 0.4 mg Documented By: BAYRON Labs CBC & Chem 7: 02/18/22 06:19 02/20/22 06:27 Labs: Laboratory Results - last 24 hr 02/20/22 02/20/22 06:27 12:55 Estim Creat Clear Calc 49.4 Estimated GFR 54 Vancomycin Trough 20.8 H Microbiology Microbiology Results: Microbiology 02/17/22 15:33 Urine Culture - Final Urine clean catch - Urine bowers top Klebsiella pneumoniae 02/17/22 14:04 Blood Culture - Preliminary Blood - Venous No growth after 48 hours. 02/17/22 13:05 Blood Culture - Preliminary Blood - Venous No growth after 48 hours. Assessment and Plan (1) Cellulitis of buttock: Status: Acute (2) Traumatic perforation of rectum: Status: Acute (3) Fall: Status: Acute (4) Acute UTI: Status: Acute (5) Open wnd of buttock: Status: Acute Plan 77-year-old gentleman with past medical history of heart failure with reduced EF status post pacemaker 2020 atrial fibrillation on Xarelto, chronic kidney disease stage 3 brought into [facility] by son since patient fell in [place] while intoxicated on concrete floor and developed open for wound with fecal drainage showing rectal perforation patient is being admitted to medical floor with close surgical follow-up. Open wound( left perianal wall) with Rectal perforation No change in patient's clinical condition no fevers, no chills, persistent open wound, with drainage of fecal material from open wound . on IV Zosyn and IV vancomycin day 3, blood cultures neg so far, and urine Cultures grew Klebsiella pneumonia 50,000 to 100,000 esbl pos Continue clear liquid diet, continue Sitz baths 4 times a day, will likely need diversion surgery Xarelto on hold for possible surgical intervention Follow CBC electrolytes and clinical course closely for any decompensation Seen by Dr. Mejia for cardiac clearance, he feels patient is high risk for surgery with EF 15-20% significant valve disease large aortic aneurysm, risk are not modifiable he will check Check pacer Surgery needs to discuss high risk with family including Chronic congestive heart failure with reduced EF No acute exacerbation Continue home medications including Coreg, ,vasotec, hold diuretics Chronic persistent atrial fibrillation rate controlled continue Coreg hold anticoagulation as above chronic kidney disease stage 3 stable with mild acidosis anion gap resolved/bicarb improved , continue soda bicarb will follow BMP renal function remains stable Mild to moderate pericardial effusion seen on abdominal and pelvic CT scan patient asymptomatic with no chest pain, follow echo UTI patient is a poor historian unable to obtain history regarding urinary symptoms UA is positive urine culture grew Klebsiella pneumoniae ESBL positive resistant to ampicillin and ceftriaxone sensitive to gentamicin and ertapenem, will consult Infectious Disease Code status DNR DNI DVT prophylaxis hold anticoagulation for possible surgical intervention,on compression stockings Patient needs continued inpatient hospitalization due to perforated rectum with open Anal? wound, needs close clinical follow-up and possible surgical intervention. Quality Stroke Does the patient have a stroke diagnosis?: No VTE Prior VTE?: No VTE Risk Level:: Medical - moderate - high VTE Device Contraindication: N/A - Device Ordered VTE Drug Contraindication: Treatment Not Indicated
--- NOTE | 2022-02-20 14:10 | MHC.CM.PN ---
CM spoke with Patient's Son/Pancho @ [phone], after missing him at bedside. Pancho explained that Patient lives with him in a basement apartment and that without STR, Patient will not be functionally able to get in and out of the apartment. ARNAV has requested that MD consider orgering a PT eval and CM will follow.
--- NOTE | 2022-02-20 15:03 | PC.NURSE ---
new IV 22 left wrist was placed yesterday after pt's IV was pulled out. pt is confused at time and has an hx of dementia. pt pulled out IV and currently has no access. IV antibiotic was not hung - MD is aware.
--- NOTE | 2022-02-20 15:19 | PM.PNGS ---
Subjective Subjective Date of Service: 02/20/22 Interval history: Patient is awake, alert, and reports some mild discomfort in the back. He does not remember his fall. Physical Exam Vital Signs: Vital Signs: Last Vital Signs Temp 96.7 F L 02/20/22 11:43 Pulse 61 02/20/22 11:43 Resp 18 02/20/22 11:43 BP 123/82 02/20/22 11:43 Pulse Ox 97 02/20/22 11:43 O2 Del Method 02/20/22 11:43 BMI result Body Mass Index 26.4 Const: General: comfortable and no acute distress Nutritional Appearance: well nourished Orientation/consciousness: patient oriented x3 Limitations: no limitations HEENT: Head: Yes normocephalic and Yes atraumatic Resp: Effort & Inspection: normal respiratory effort GI: Other: Examination of perineum reveals open wound remaining with feculent discharge. Palpation (GI): Soft to palpation, nontender, no guarding and not rigid Percussion: Yes normal to percussion Auscultation: normal bowel sounds Skin: Other: Warm, dry, no rash, normal color Neuro: General: patient oriented x3 Extrem: General: Yes no pedal edema Objective Data Active Medications Acetaminophen (Acetaminophen 325 Mg Tablet) 650 mg PO Q6H PRN PRN Reason: Pain, Mild (Pain Scale 1-3) Last Admin: 02/18/22 04:42 Dose: 650 mg Documented By: CORY Benzonatate (Benzonatate 100 Mg Capsule) 100 mg PO TID PRN PRN Reason: Cough Carvedilol (Carvedilol 6.25 Mg Tablet) 6.25 mg PO BID [facility]; Protocol Last Admin: 02/20/22 10:12 Dose: 6.25 mg Documented By: BAYRON Enalapril Maleate (Enalapril Maleate 2.5 Mg Tablet) 2.5 mg PO BID [facility]; Protocol Last Admin: 02/20/22 10:12 Dose: 2.5 mg Documented By: BAYRON Folic Acid (Folic Acid 1 Mg Tablet) 1 mg PO DAILY [facility] Last Admin: 02/20/22 10:12 Dose: 1 mg Documented By: BAYRON Piperacillin Sod/Tazobactam (Sod 3.375 gm/ Sodium Chloride) 50 mls @ 100 mls/hr IV Q6H [facility] Last Infusion: 02/20/22 13:19 Dose: 0 mls/hr Documented By: BAYRON Vancomycin HCl 1,000 mg/ (Sodium Chloride) 270 mls @ 270 mls/hr IV Q24H [facility] Melatonin (Melatonin 3 Mg Tablet) 3 mg PO BEDTIME PRN PRN Reason: Insomnia Morphine Sulfate (Morphine Sulfate 4 Mg/Ml Cartridge) 3 mg IVPUSH Q4H PRN; Protocol PRN Reason: Pain, Severe (Pain Scale 7-10) Last Admin: 02/19/22 22:19 Dose: 3 mg Documented By: DEIRDRE Omeprazole (Omeprazole 20 Mg Capsule.Dr) 20 mg PO DAILY@0630 [facility] Last Admin: 02/20/22 06:07 Dose: 20 mg Documented By: DEIRDRE Ondansetron HCl (Ondansetron Hcl 4 Mg/2 Ml Vial) 4 mg IVPUSH Q8H PRN PRN Reason: Nausea and Vomiting Last Admin: 02/18/22 14:17 Dose: 4 mg Documented By: LORI Oxycodone HCl (Oxycodone Hcl Immed Release 5 Mg Tablet) 5 mg PO Q6H PRN PRN Reason: Pain, Moderate (Pain Scale 4-6 Last Admin: 02/19/22 20:18 Dose: 5 mg Documented By: DEIRDRE Pharmacy Consult (Consult Rx Perform Med Rec) 1 each MISCELLANE ONCE PRN PRN Reason: Consult order Pharmacy Consult (Consult Rx Vancomycin Dosing) 1 each MISCELLANE DAILY PRN PRN Reason: Consult order Sodium Bicarbonate (Sodium Bicarbonate 650 Mg Tablet) 650 mg PO BID [facility] Last Admin: 02/20/22 10:12 Dose: 650 mg Documented By: BAYRON Sodium Chloride (0.9 % Sodium Chloride Flush 3 Ml Syringe) 3 ml IVFLUSH QSHIFT [facility] Last Admin: 02/20/22 15:02 Dose: Not Given Documented By: BAYRON Non-Admin Reason: No Access Tamsulosin HCl (Tamsulosin Hcl 0.4 Mg Capsule) 0.4 mg PO DAILY [facility] Last Admin: 02/20/22 10:12 Dose: 0.4 mg Documented By: BAYRON Labs CBC & Chem 7: 02/18/22 06:19 02/20/22 06:27 Labs: Laboratory Results - last 24 hr 10/31/22 10/31/22 06:27 12:55 Estim Creat Clear Calc 49.4 Estimated GFR 54 Vancomycin Trough 20.8 H Microbiology Microbiology Results: Microbiology 02/17/22 15:33 Urine Culture - Final Urine clean catch - Urine bowers top Klebsiella pneumoniae 02/17/22 14:04 Blood Culture - Preliminary Blood - Venous No growth after 48 hours. 02/17/22 13:05 Blood Culture - Preliminary Blood - Venous No growth after 48 hours. Procedures Date of Service Date of Service: 02/20/22 Progress Note: A&P Assessment and plan (1) Traumatic perforation of rectum: Status: Acute Plan 77-year-old male patient status post fall in the [place] 1 week ago found to have perforation of the rectum /anus with a large open wound in the perineum. Wounds are draining stool which is not surprising. WBC remains normal. Options include aggressive local wound care including Q i.d. Sitz baths for 15-20 minutes at a time, especially after a bowel movement, verses diverting ostomy. Discussed patient's cardiac history with Dr. Mejia. Patient's ejection fraction is 15-20% with valvular disease. He also has a large aortic aneurysm. His risks are not modifiable. The patient has very high risk for any surgery therefore would recommend aggressive local wound care including the Sitz baths as noted above. Will repeat CT in a.m. Time Spent With Patient Time: Total time spent is greater than 50% in coordination of care (as documented) at patient's floor/unit and/or counseling patient: Quality Stroke Does the patient have a stroke diagnosis?: No VTE Prior VTE?: No VTE Risk Level:: Medical - moderate - high VTE Device Contraindication: N/A - Device Ordered VTE Drug Contraindication: Treatment Not Indicated
[2022-02-20 15:40] VITALS: BP 131/78; PULSE 655; RESP 13; TEMP 35.9; O2SAT 98
[2022-02-20 19:24] VITALS: BP 123/70; PULSE 68; RESP 14; TEMP 36.6; O2SAT 99
[2022-02-20] MEDS: oxyCODONE HCl Immed Release 5 MG TABLET PO (23:05)
[2022-02-20] MEDS: Acetaminophen 325 MG TABLET 650 MG PO (23:06)
[2022-02-20 23:18] VITALS: BP 135/93; PULSE 64; RESP 18; TEMP 36.8; O2SAT 97
[2022-02-21] MEDS: Melatonin 3 MG TABLET PO (01:53)
[2022-02-21 03:57] VITALS: BP 133/76; PULSE 69; RESP 16; TEMP 36.6; O2SAT 94
[2022-02-21] MEDS: oxyCODONE HCl Immed Release 5 MG TABLET PO ×2 (06:06→12:44)
[2022-02-21] MEDS: Acetaminophen 325 MG TABLET 650 MG PO ×2 (06:09→12:45)
[2022-02-21] MEDS: Omeprazole 20 MG CAPSULE.DR PO (06:09)
[2022-02-21] MEDS: Piperacillin Sodium/Tazobactam 3.375 GM in 0.9 % Sodium Chloride 50 ML IV ×2 (06:12→12:46)
[2022-02-21 06:27] LABS: Anion Gap 14 (12-20); Blood Urea Nitrogen 14 mg/dL (9-16); Calcium 8.5 mg/dL (8.4-10.2); Carbon Dioxide 20 mmol/L (22-29); Chloride 106 mmol/L (96-108); Estimated Glomerular Filt Rate 60; Glucose Random 81 mg/dL (60-115); Potassium 5.2 mmol/L (3.3-5.1); Sodium 135 mmol/L (135-145)
[2022-02-21 07:18] VITALS: BP 116/75; PULSE 66; RESP 20; TEMP 36.2; O2SAT 91
--- NOTE | 2022-02-21 07:36 | PM.PNGS ---
Subjective Subjective Date of Service: 02/21/22 Patient reports: no new complaints Interval history: Reports some back pain. He is hungry. Physical Exam Vital Signs: Vital Signs: Last Vital Signs Temp 97.1 F 02/21/22 07:18 Pulse 66 02/21/22 07:18 Resp 20 02/21/22 07:18 BP 116/75 02/21/22 07:18 Pulse Ox 91 L 02/21/22 07:18 O2 Del Method 02/21/22 07:18 BMI result Body Mass Index 26.4 Const: General: no acute distress Nutritional Appearance: well nourished Orientation/consciousness: patient oriented x3 Limitations: no limitations Resp: Effort & Inspection: normal respiratory effort GI: Inspection: Yes normal to inspection Palpation (GI): Soft to palpation, nontender, no guarding and not rigid Back/Spine/Pelvis: Other: . Anal wounds examined. Good granulation tissue noted in the anal wound. Minimal fecal soilage appreciated, no erythema or fluctuance. Neuro: General: patient oriented x3 Extrem: General: Yes no clubbing, cyanosis or edema Objective Data Active Medications Acetaminophen (Acetaminophen 325 Mg Tablet) 650 mg PO Q6H PRN PRN Reason: Pain, Mild (Pain Scale 1-3) Last Admin: 02/21/22 06:09 Dose: 650 mg Documented By: GERARDO Benzonatate (Benzonatate 100 Mg Capsule) 100 mg PO TID PRN PRN Reason: Cough Carvedilol (Carvedilol 6.25 Mg Tablet) 6.25 mg PO BID [facility]; Protocol Last Admin: 02/20/22 22:17 Dose: 6.25 mg Documented By: ALIN Enalapril Maleate (Enalapril Maleate 2.5 Mg Tablet) 2.5 mg PO BID [facility]; Protocol Last Admin: 02/20/22 22:16 Dose: 2.5 mg Documented By: ALIN Folic Acid (Folic Acid 1 Mg Tablet) 1 mg PO DAILY [facility] Last Admin: 02/20/22 10:12 Dose: 1 mg Documented By: BAYRON Piperacillin Sod/Tazobactam (Sod 3.375 gm/ Sodium Chloride) 50 mls @ 100 mls/hr IV Q6H [facility] Last Infusion: 02/21/22 06:51 Dose: 0 mls/hr Documented By: GERARDO Vancomycin HCl 1,000 mg/ (Sodium Chloride) 270 mls @ 270 mls/hr IV Q24H [facility] Last Admin: 02/20/22 22:20 Dose: Not Given Documented By: ALIN Non-Admin Reason: no iv access, picc dominga Melatonin (Melatonin 3 Mg Tablet) 3 mg PO BEDTIME PRN PRN Reason: Insomnia Last Admin: 02/21/22 01:53 Dose: 3 mg Documented By: ALIN Morphine Sulfate (Morphine Sulfate 4 Mg/Ml Cartridge) 3 mg IVPUSH Q4H PRN; Protocol PRN Reason: Pain, Severe (Pain Scale 7-10) Last Admin: 02/19/22 22:19 Dose: 3 mg Documented By: FOSTEKMargo Omeprazole (Omeprazole 20 Mg Capsule.Dr) 20 mg PO DAILY@0630 [facility] Last Admin: 02/21/22 06:09 Dose: 20 mg Documented By: GERARDO Ondansetron HCl (Ondansetron Hcl 4 Mg/2 Ml Vial) 4 mg IVPUSH Q8H PRN PRN Reason: Nausea and Vomiting Last Admin: 02/18/22 14:17 Dose: 4 mg Documented By: LORI Oxycodone HCl (Oxycodone Hcl Immed Release 5 Mg Tablet) 5 mg PO Q6H PRN PRN Reason: Pain, Moderate (Pain Scale 4-6 Last Admin: 02/21/22 06:06 Dose: 5 mg Documented By: GERARDO Pharmacy Consult (Consult Rx Perform Med Rec) 1 each MISCELLANE ONCE PRN PRN Reason: Consult order Pharmacy Consult (Consult Rx Vancomycin Dosing) 1 each MISCELLANE DAILY PRN PRN Reason: Consult order Sodium Bicarbonate (Sodium Bicarbonate 650 Mg Tablet) 650 mg PO BID [facility] Last Admin: 02/20/22 22:16 Dose: 650 mg Documented By: ALIN Sodium Chloride (0.9 % Sodium Chloride Flush 3 Ml Syringe) 3 ml IVFLUSH QSHIFT [facility] Last Admin: 02/21/22 06:09 Dose: Not Given Documented By: GERARDO Non-Admin Reason: IV Running Tamsulosin HCl (Tamsulosin Hcl 0.4 Mg Capsule) 0.4 mg PO DAILY [facility] Last Admin: 02/20/22 10:12 Dose: 0.4 mg Documented By: BAYRON Labs CBC & Chem 7: 02/18/22 06:19 02/21/22 05:33 Labs: Laboratory Results - last 24 hr 02/20/22 02/21/22 12:55 05:33 Anion Gap 14 Estim Creat Clear Calc 54.0 Estimated GFR 60 Random Glucose 81 Calcium 8.5 Vancomycin Trough 20.8 H Microbiology Microbiology Results: Microbiology 02/17/22 15:33 Urine Culture - Final Urine clean catch - Urine bowers top Klebsiella pneumoniae Procedures Date of Service Date of Service: 02/21/22 Progress Note: A&P Assessment and plan (1) Traumatic perforation of rectum: Status: Acute (2) Fall: Status: Acute Plan 77-year-old male, status post fall [place] 8 days ago resulting in a rectal perforation possibly due to a penetrating wound. Patient has a large open wound in the perianal skin which is clean and granulating. There is no evidence of abscess at this time. Will obtain a CT abdomen and pelvis today follow-up on the perirectal collection of air. If this looks improved, will advance to a regular diet. ? Out of bed and ambulate. Time Spent With Patient Time: Total time spent is greater than 50% in coordination of care (as documented) at patient's floor/unit and/or counseling patient: Quality Stroke Does the patient have a stroke diagnosis?: No VTE Prior VTE?: No VTE Risk Level:: Medical - moderate - high VTE Device Contraindication: N/A - Device Ordered VTE Drug Contraindication: Treatment Not Indicated
--- NOTE | 2022-02-21 08:06 | HE.PHANOTE ---
RE: lul Pt's IV was pulled out, dose was not given 02/20/22. re-timed lul for this morning with a level to be drawn tomorrow 02/22/22 @0700
[2022-02-21] MEDS: Sodium Bicarbonate 650 MG TABLET PO ×2 (08:37→20:04)
[2022-02-21] MEDS: Folic Acid 1 MG TABLET PO (08:37)
[2022-02-21] MEDS: carvediloL 6.25 MG TABLET PO ×2 (08:40→20:04)
[2022-02-21] MEDS: Tamsulosin HCL 0.4 MG CAPSULE PO (08:41)
[2022-02-21] MEDS: 0.9 % Sodium Chloride Flush 3 ML SYRINGE IVFLUSH (08:42)
[2022-02-21] MEDS: vancomycin HCL 1,000 MG in 0.9 % Sodium Chloride 250 ML 270 MG IV (08:42)
[2022-02-21] MEDS: Sodium Zirconium Cyclosilicate 10 GM POWD.PACK PO (08:43)
--- NOTE | 2022-02-21 09:48 | PM.PNCARD ---
Subjective Subjective Date of Service: 02/21/22 Interval history: Patient denies any cardiac complaints. Review of Systems Review of Systems Yes all other systems are reviewed and are negative Constitutional: Reports as per HPI Eyes: Reports as per HPI Reports as per HPI Cardiovascular: Reports as per HPI, Denies acrocyanosis, Denies cool extremities, Denies chest pain, Denies leg edema, Denies lightheadedness, Denies palpitations and Denies dyspnea Respiratory: Reports as per HPI, Reports no additional respiratory complaints and Denies dyspnea Gastrointestinal: Reports as per HPI and Reports no additional gastrointestinal complaints Genitourinary: Reports no additional male genitourinary complaints and Reports as per HPI Musculoskeletal: Reports no additional musculoskeletal complaints and Reports as per HPI Skin/Breast: Reports system reviewed and no additional complaints, except as docu Reports system reviewed and no additional complaints, except as documented and Reports as per HPI Psychiatric: Reports no additional psychiatric complaints and Reports as per HPI Endocrine: Reports no additional endocrine complaints, Reports as per HPI and Denies palpitations Hematologic/Lymphatic: Reports no additional hematologic/lymphatic complaints and Reports as per HPI Allergic/Immunologic: Reports no additional allergic/immunologic complaints and Reports as per HPI Physical Exam Vital Signs: Last Vital Signs Temp 97.1 F 02/21/22 07:18 Pulse 66 02/21/22 07:18 Resp 20 02/21/22 07:18 BP 116/75 02/21/22 07:18 Pulse Ox 91 L 02/21/22 07:18 O2 Del Method 02/21/22 07:18 BMI result Body Mass Index 26.4 Objective Labs and Meds Result diagrams: 02/18/22 06:19 02/21/22 05:33 Lab results: Laboratory Results - last 24 hr 02/20/22 02/21/22 12:55 05:33 Sodium 135 Potassium 5.2 H Chloride 106 Carbon Dioxide 20 L Anion Gap 14 BUN 14 Creatinine 1.18 Estim Creat Clear Calc 54.0 Estimated GFR 60 Random Glucose 81 Calcium 8.5 Vancomycin Trough 20.8 H Imaging Radiologist's impression: Impressions Chest X-Ray 02/20/22 13:15 IMPRESSION: * Cardiomegaly. No acute pulmonary edema. * A leadless pacemaker projects over the apex of the right ventricle. * Lung bases are suboptimally evaluated due to the single anterior posterior projection and pulmonary hypoinflation. Progress Note: A&P Assessment and plan (1) Preoperative cardiovascular examination: Status: Acute (2) Cardiomyopathy: Status: Acute (3) Afib: Status: Acute (4) Traumatic perforation of rectum: Status: Acute Plan Echocardiogram with LVEF of 15-20% with regional as well as global wall motion abnormalities. Varying degrees of valvular regurgitation and some pulmonary hypertension. There is significant dilatation of ascending aortic size at 5 cm. Unknown coronary status. Overall, he is at high risk for any surgical procedures for perforation of rectum. is a definite possibility. Hence proceed only if absolutely necessary and life saving. Discussed with Dr. Garza. With regard to pacemaker, this is the leadless device. Interrogated. Indication listed as AT/AF and sinus node dysfunction. Battery life more than 8 years. Normal lead parameters. Ventricular pacing 55% the time. Overall, normal device function. Time Spent With Patient Time: Total time spent is greater than 50% in coordination of care (as documented) at patient's floor/unit and/or counseling patient: 35min. Progress Note: Quality Stroke Does the patient have a stroke diagnosis?: No Procedures Date of Service Date of Service: 02/21/22
--- NOTE | 2022-02-21 09:49 | PC.NURSE ---
Patient had 12 beat run of MD uriah galeana aware
[2022-02-21] MEDS: Diatrizoate Meglumine, Sodium 30 ML SOLUTION PO (11:58)
--- NOTE | 2022-02-21 13:42 | PC.NURSE ---
Repositioned patient to provide comfort. continuous leaking of loose stool from rectal wall puncture. provided saline flushing of wound bed during each bedding change q4
--- NOTE | 2022-02-21 14:02 | P.CNID_ITS ---
History of Present Illness Data of Consult Service Date: 02/21/22 Requesting physician: Elsie Yancey Primary Care Provider: None Physician HPI Reason for consult: anal cellulitis He presents with rectal pain after falling eight days ago [place]. He come with feculent drainage and apparently perforated rectum He has CT shows abscess in rectal area. He has no positive cultures so far. Review of Systems Review of Systems: Yes Unobtainable due to mental condition PMFSH Past Medical History Medical History Afib Alcohol abuse Anticoagulant long-term use BPH (benign prostatic hyperplasia) Cardiomyopathy CKD (chronic kidney disease) ESBL (extended spectrum beta-lactamase) producing bacteria infection HTN (hypertension) Pacemaker Family History Family History Mother Lung abnormality Family history: reviewed and not pertinent Social History Social History Household Members: Unknown / Unable to assess Housing: Unknown / Unable to assess Unable to assess alcohol history related to: Refusing to respond Alcohol intake: former Patient Tobacco Use Status: Former Tobacco user service: No Meds Allergies Allergy/AdvReac Type Severity Reaction Status Date / Time No Known Allergies Allergy Verified 02/17/22 12:33 Active Medications: Current Medications Acetaminophen (Acetaminophen 325 Mg Tablet) 650 mg PO Q6H PRN PRN Reason: Pain, Mild (Pain Scale 1-3) Last Admin: 02/21/22 12:45 Dose: 650 mg Benzonatate (Benzonatate 100 Mg Capsule) 100 mg PO TID PRN PRN Reason: Cough Carvedilol (Carvedilol 6.25 Mg Tablet) 6.25 mg PO BID [facility]; Protocol Last Admin: 02/21/22 08:40 Dose: 6.25 mg Enalapril Maleate (Enalapril Maleate 2.5 Mg Tablet) 2.5 mg PO BID [facility]; Protocol Last Admin: 02/21/22 08:40 Dose: 2.5 mg Folic Acid (Folic Acid 1 Mg Tablet) 1 mg PO DAILY [facility] Last Admin: 02/21/22 08:37 Dose: 1 mg Piperacillin Sod/Tazobactam (Sod 3.375 gm/ Sodium Chloride) 50 mls @ 100 mls/hr IV Q6H [facility] Last Infusion: 02/21/22 13:32 Dose: Infused Vancomycin HCl 1,000 mg/ (Sodium Chloride) 270 mls @ 270 mls/hr IV Q24H [facility] Last Infusion: 02/21/22 10:08 Dose: Infused Melatonin (Melatonin 3 Mg Tablet) 3 mg PO BEDTIME PRN PRN Reason: Insomnia Last Admin: 02/21/22 01:53 Dose: 3 mg Morphine Sulfate (Morphine Sulfate 4 Mg/Ml Cartridge) 3 mg IVPUSH Q4H PRN; Protocol PRN Reason: Pain, Severe (Pain Scale 7-10) Last Admin: 02/19/22 22:19 Dose: 3 mg Omeprazole (Omeprazole 20 Mg Capsule.Dr) 20 mg PO DAILY@0630 [facility] Last Admin: 02/21/22 06:09 Dose: 20 mg Ondansetron HCl (Ondansetron Hcl 4 Mg/2 Ml Vial) 4 mg IVPUSH Q8H PRN PRN Reason: Nausea and Vomiting Last Admin: 02/18/22 14:17 Dose: 4 mg Oxycodone HCl (Oxycodone Hcl Immed Release 5 Mg Tablet) 5 mg PO Q6H PRN PRN Reason: Pain, Moderate (Pain Scale 4-6 Last Admin: 02/21/22 12:44 Dose: 5 mg Pharmacy Consult (Consult Rx Perform Med Rec) 1 each MISCELLANE ONCE PRN PRN Reason: Consult order Pharmacy Consult (Consult Rx Vancomycin Dosing) 1 each MISCELLANE DAILY PRN PRN Reason: Consult order Sodium Bicarbonate (Sodium Bicarbonate 650 Mg Tablet) 650 mg PO BID [facility] Last Admin: 02/21/22 08:37 Dose: 650 mg Sodium Chloride (0.9 % Sodium Chloride Flush 3 Ml Syringe) 3 ml IVFLUSH QSHIFT [facility] Last Admin: 02/21/22 08:42 Dose: 3 ml Tamsulosin HCl (Tamsulosin Hcl 0.4 Mg Capsule) 0.4 mg PO DAILY [facility] Last Admin: 02/21/22 08:41 Dose: 0.4 mg Home Medications Medication Instructions Recorded Confirmed Last Taken Type acetaminophen 325 mg tablet 650 mg PO Q6H PRN Pain 02/17/22 02/17/22 Unknown History carvedilol 6.25 mg tablet 1 tab PO BID 02/17/22 02/17/22 02/17/22 History enalapril maleate 2.5 mg tablet 1 tab PO BID 02/17/22 02/17/22 02/17/22 History folic acid 1 mg tablet 1 tab PO DAILY 02/17/22 02/17/22 02/17/22 History furosemide 80 mg tablet 1 tab PO BID 02/17/22 02/17/22 02/17/22 History omeprazole 20 mg capsule,delayed 20 mg PO DAILY@0630 02/17/22 02/17/22 Unknown History release rivaroxaban 15 mg tablet (Xarelto) 15 mg PO DAILY@1700 02/17/22 02/17/22 Unknown History spironolactone 25 mg tablet 1 tab PO DAILY 02/17/22 02/17/22 02/17/22 History tamsulosin 0.4 mg capsule 1 cap PO DAILY 02/17/22 02/17/22 02/17/22 History Physical Exam Vital Signs: Vital Signs: Last Vital Signs Temp 97.1 F 02/21/22 07:18 Pulse 66 02/21/22 07:18 Resp 20 02/21/22 07:18 BP 116/75 02/21/22 07:18 Pulse Ox 91 L 02/21/22 07:18 O2 Del Method 02/21/22 07:18 BMI result Body Mass Index 26.4 Const: General: cooperative HEENT: Head: Yes normal to inspection Face and sinus: Yes normal facial exam Mouth: Normal oral and palatal mucosa present Teeth and gingiva: dentition normal Eyes: General: appearance normal, both eyes and all related structures Pupils: Equal, round and reactive pupils present Resp: Effort & Inspection: normal respiratory effort Cardio: Rate: regular rate Rhythm: regular rhythm GI: Other: rectal area swelling Palpation (GI): Soft to palpation and nontender : General: Yes no CVA tenderness Back/Spine/Pelvis: Back: no CVA tenderness Skin: General skin exam: no rashes or lesions noted Neuro: General: moves all extremities Cranial nerves: Yes Equal, round and reactive pupils present Extrem: General: Yes normal to inspection Psych: Appearance: grossly normal Results Labs CBC & Chem 7: 02/18/22 06:19 02/21/22 05:33 Labs: BMP 02/21/22 05:33 Sodium 135 Potassium 5.2 H Chloride 106 Carbon Dioxide 20 L BUN 14 Creatinine 1.18 Calcium 8.5 Microbiology Microbiology Results: Microbiology 02/17/22 15:33 Urine clean catch - Urine bowers top Urine Culture - Final Klebsiella pneumoniae 02/17/22 14:04 Blood - Venous Blood Culture - Preliminary No growth after 48 hours. 02/17/22 13:05 Blood - Venous Blood Culture - Preliminary No growth after 48 hours. Assessment and Plan (1) Cellulitis of buttock: Status: Acute (2) Traumatic perforation of rectum: Status: Acute There is concern over bacterial infection buttocks area with gram negative ,stool organisms There is no MRSA seen (3) Open wnd of buttock: Qualifiers: Encounter type: initial encounter Laterality: left Qualified Code(s): S31.829A - Unspecified open wound of left buttock, initial encounter Status: Acute Plan Could give either Merem or piperacillin/tazobactem He has ESLB Klebsiella urine so probably better Stop Vancomycin
--- NOTE | 2022-02-21 15:09 | P.PNIM_ITS ---
Subjective Subjective Date of Service: 02/21/22 Interval History: This history was taken in [place] from the patient. Rectal pain controlled No fever no chest pain No palpitations Review of Systems Review of Systems: Yes all other systems are reviewed and are negative Physical Exam Vital Signs: Vital Signs: Last Vital Signs Temp 97.1 F 02/21/22 07:18 Pulse 66 02/21/22 07:18 Resp 20 02/21/22 07:18 BP 116/75 02/21/22 07:18 Pulse Ox 91 L 02/21/22 07:18 O2 Del Method 02/21/22 07:18 BMI result Body Mass Index 26.4 Gen: in no acute distress HEENT: sclera anicteric, moist mucus membranes Neck: supple Lungs: clear to auscultation bilaterally Heart: regular rate and rhythm, no murmurs Abd: soft, non-tender, non-distended Ext: no edema Skin: warm/well-perfused Neuro: alert and oriented x3, no focal findings Psych: appropriate affect Objective Data Active Medications Acetaminophen (Acetaminophen 325 Mg Tablet) 650 mg PO Q6H PRN PRN Reason: Pain, Mild (Pain Scale 1-3) Last Admin: 02/21/22 12:45 Dose: 650 mg Documented By: THOMAS Benzonatate (Benzonatate 100 Mg Capsule) 100 mg PO TID PRN PRN Reason: Cough Carvedilol (Carvedilol 6.25 Mg Tablet) 6.25 mg PO BID [facility]; Protocol Last Admin: 02/21/22 08:40 Dose: 6.25 mg Documented By: THOMAS Enalapril Maleate (Enalapril Maleate 2.5 Mg Tablet) 2.5 mg PO BID [facility]; Protocol Last Admin: 02/21/22 08:40 Dose: 2.5 mg Documented By: THOMAS Folic Acid (Folic Acid 1 Mg Tablet) 1 mg PO DAILY [facility] Last Admin: 02/21/22 08:37 Dose: 1 mg Documented By: THOMAS Meropenem 1 gm/ Sodium (Chloride) 100 mls @ 200 mls/hr IV Q8H [facility] Melatonin (Melatonin 3 Mg Tablet) 3 mg PO BEDTIME PRN PRN Reason: Insomnia Last Admin: 02/21/22 01:53 Dose: 3 mg Documented By: HO.TUMASY Morphine Sulfate (Morphine Sulfate 4 Mg/Ml Cartridge) 3 mg IVPUSH Q4H PRN; Protocol PRN Reason: Pain, Severe (Pain Scale 7-10) Last Admin: 02/19/22 22:19 Dose: 3 mg Documented By: DEIRDRE Omeprazole (Omeprazole 20 Mg Capsule.) 20 mg PO DAILY@0630 [facility] Last Admin: 02/21/22 06:09 Dose: 20 mg Documented By: GERARDO Ondansetron HCl (Ondansetron Hcl 4 Mg/2 Ml Vial) 4 mg IVPUSH Q8H PRN PRN Reason: Nausea and Vomiting Last Admin: 02/18/22 14:17 Dose: 4 mg Documented By: LORI Oxycodone HCl (Oxycodone Hcl Immed Release 5 Mg Tablet) 5 mg PO Q6H PRN PRN Reason: Pain, Moderate (Pain Scale 4-6 Last Admin: 02/21/22 12:44 Dose: 5 mg Documented By: THOMAS Pharmacy Consult (Consult Rx Perform Med Rec) 1 each MISCELLANE ONCE PRN PRN Reason: Consult order Pharmacy Consult (Consult Rx Vancomycin Dosing) 1 each MISCELLANE DAILY PRN PRN Reason: Consult order Sodium Bicarbonate (Sodium Bicarbonate 650 Mg Tablet) 650 mg PO BID [facility] Last Admin: 02/21/22 08:37 Dose: 650 mg Documented By: THOMAS Sodium Chloride (0.9 % Sodium Chloride Flush 3 Ml Syringe) 3 ml IVFLUSH QSHIFT [facility] Last Admin: 02/21/22 08:42 Dose: 3 ml Documented By: THOMAS Tamsulosin HCl (Tamsulosin Hcl 0.4 Mg Capsule) 0.4 mg PO DAILY [facility] Last Admin: 02/21/22 08:41 Dose: 0.4 mg Documented By: THOMAS Labs CBC & Chem 7: 02/18/22 06:19 02/21/22 05:33 Labs: Laboratory Results - last 24 hr 02/21/22 05:33 Anion Gap 14 Estim Creat Clear Calc 54.0 Estimated GFR 60 Random Glucose 81 Calcium 8.5 ITS Impressions Abdomen/Pelvis CT 02/17/22 14:35 IMPRESSION: Extensive areas of ectopic gas within the soft tissues of the right buttock, right ischiorectal fossa, perineum, and pelvis. Evaluation is limited without IV contrast. The appearance is more consistent with penetrating penetrating trauma then blunt injury, for example from a fall. The penetrating injury likely extends into the pelvis suspected bilateral pelvic sidewall collections. Perforation of the rectum is certainly possible. Recommend surgical consultation. Repeat study utilizing IV and perhaps rectal contrast may be helpful. The findings and recommendations were discussed with Genevieve Hurt MD by telephone at 02/17/2022 4:00 PM and it was ascertained that the content and urgency of the report was understood at the time of direct communication. Head CT 02/17/22 14:36 IMPRESSION: No acute intracranial pathology. Chest X-Ray 02/20/22 13:15 IMPRESSION: * Cardiomegaly. No acute pulmonary edema. * A leadless pacemaker projects over the apex of the right ventricle. * Lung bases are suboptimally evaluated due to the single anterior posterior projection and pulmonary hypoinflation. Abdomen/Pelvis CT 02/21/22 11:54 IMPRESSION: Wall thickening of the rectum. Stable air-fluid level adjacent to the right anterior lateral upper rectum questionable for abscess or perforation. Stable bilateral pelvic sidewall collections containing air and fluid on the right and air on the left. Stable small amount of air just deep to the right lower abdominal wall lateral to the rectus muscles. Fat stranding in the perineum and ischiorectal fat right greater than left. Interval decrease in air in the right ischiorectal fossa and perineal region. Mild wall thickening of the colon questionable for colitis. Bilateral renal cysts. Atherosclerotic disease stage of the lower abdominal aorta and iliac arteries. 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 Fleischner guidelines were followed. Chest X-Ray 02/21/22 11:57 IMPRESSION: Stable enlargement of the cardiac silhouette. Small bilateral pleural effusions. No free air is seen. Assessment and Plan (1) Cellulitis of buttock: Status: Acute (2) Traumatic perforation of rectum: Status: Acute (3) Fall: Status: Acute (4) Acute UTI: Status: Acute (5) Open wnd of buttock: Status: Acute Plan d#5 77yo M with hx chronic HFrEF, AF s/p PPM 2019 AC on rivaroxaban, CKD3, brought in after falling in the [place] while intoxicated and developing an open anal wound with fecal drainage admitted for perirectal perforation/cellulitis # perirectal perforation/cellulitis - Surgery following, stable on CT, advance diet, no surgery for now [very high risk for Surgery per Cardiology] - ID consulted, narrow ABX from vanco + pip/missael to pmeropenem alone to cover ESBL UTI # chronic HFrEF # NSVT [12 beats today] # AF - Cardiology consulted: Echocardiogram with LVEF of 15-20% with regional as well as global wall motion abnormalities.? Varying degrees of valvular regurgitation and some pulmonary hypertension.? There is significant dilatation of ascending aortic size at 5 cm. Unknown coronary status. Overall, he is at high risk for any surgical procedures for perforation of rectum.? is a definite possibility.? Hence proceed only if absolutely necessary and life saving. Discussed with Dr. Garza. With regard to pacemaker, this is the leadless device.? Interrogated.? Indication listed as AT/AF and sinus node dysfunction.? Battery life more than 8 years.? Normal lead parameters.? Ventricular pacing 55% the time.? Overall, normal device function. - continue carvedilol, enalapril - restart rivaroxaban, spironolactone, furosemide # ESBL UTI [Klebsiella pneumoniae] - meropenem d#1 # CKD3 # metabolic acidosis - continue sodium bicarbonate, follow BMP # hyperK, mild - SZC, recheck BMP in AM # VTE ppx: rivaroxaban In my clinical judgment, the patient requires continued inpatient hospitaliz ation for the following reasons: IV ABX Quality Stroke Does the patient have a stroke diagnosis?: No VTE Prior VTE?: No VTE Risk Level:: Medical - moderate - high VTE Device Contraindication: N/A - Device Ordered VTE Drug Contraindication: Treatment Not Indicated
[2022-02-21 16:00] VITALS: BP 130/92; PULSE 64; RESP 18; TEMP 36.5; O2SAT 93
[2022-02-21] MEDS: Rivaroxaban 15 MG TABLET PO (16:17)
[2022-02-21 19:39] VITALS: BP 146/89; PULSE 62; RESP 18; TEMP 36; O2SAT 92
[2022-02-21] MEDS: Furosemide 40 MG TABLET 80 MG PO (20:04)
[2022-02-21 23:42] VITALS: BP 117/78; PULSE 71; RESP 18; TEMP 36.6; O2SAT 94
[2022-02-22] MEDS: Benzonatate 100 MG CAPSULE PO ×2 (00:15→16:03)
[2022-02-22] MEDS: 0.9 % Sodium Chloride Flush 3 ML SYRINGE IVFLUSH ×4 (00:15→22:15)
[2022-02-22 03:47] VITALS: BP 113/84; PULSE 86; RESP 20; TEMP 37.1; O2SAT 92
[2022-02-22] MEDS: Omeprazole 20 MG CAPSULE.DR PO (06:13)
[2022-02-22 07:28] VITALS: BP 139/87; PULSE 87; RESP 20; TEMP 36.1; O2SAT 98
[2022-02-22] MEDS: Folic Acid 1 MG TABLET PO (10:05)
[2022-02-22] MEDS: carvediloL 6.25 MG TABLET PO ×2 (10:05→22:13)
[2022-02-22] MEDS: Spironolactone 25 MG TABLET PO (10:05)
[2022-02-22] MEDS: Furosemide 40 MG TABLET 80 MG PO ×2 (10:05→22:14)
[2022-02-22] MEDS: Sodium Bicarbonate 650 MG TABLET PO ×2 (10:06→22:14)
[2022-02-22] MEDS: Tamsulosin HCL 0.4 MG CAPSULE PO (10:06)
--- NOTE | 2022-02-22 10:09 | P.PNIM_ITS ---
Subjective Subjective Date of Service: 02/22/22 Interval History: This history was taken in [place] from the patient. Tolerating diet No fever Minimal rectal pain Review of Systems Review of Systems: Yes all other systems are reviewed and are negative Physical Exam Vital Signs: Vital Signs: Last Vital Signs Temp 97 F 02/22/22 07:28 Pulse 87 02/22/22 07:28 Resp 20 02/22/22 07:28 BP 139/87 02/22/22 07:28 Pulse Ox 98 02/22/22 07:28 O2 Del Method 02/22/22 07:28 BMI result Body Mass Index 26.4 Gen: in no acute distress HEENT: sclera anicteric, moist mucus membranes Neck: supple Lungs: clear to auscultation bilaterally Heart: regular rate and rhythm, no murmurs Abd: soft, non-tender, non-distended, anal wounds granulating Ext: no edema Skin: warm/well-perfused Neuro: alert and oriented x3, no focal findings Psych: appropriate affect Objective Data Active Medications Acetaminophen (Acetaminophen 325 Mg Tablet) 650 mg PO Q6H PRN PRN Reason: Pain, Mild (Pain Scale 1-3) Last Admin: 02/21/22 12:45 Dose: 650 mg Documented By: THOMAS Benzonatate (Benzonatate 100 Mg Capsule) 100 mg PO TID PRN PRN Reason: Cough Last Admin: 02/22/22 00:15 Dose: 100 mg Documented By: CHRISTIANO Carvedilol (Carvedilol 6.25 Mg Tablet) 6.25 mg PO BID [facility]; Protocol Last Admin: 02/21/22 20:04 Dose: 6.25 mg Documented By: BOGDAN Enalapril Maleate (Enalapril Maleate 2.5 Mg Tablet) 2.5 mg PO BID [facility]; Protocol Last Admin: 02/21/22 20:04 Dose: 2.5 mg Documented By: BOGDAN Folic Acid (Folic Acid 1 Mg Tablet) 1 mg PO DAILY [facility] Last Admin: 02/21/22 08:37 Dose: 1 mg Documented By: THOMAS Furosemide (Furosemide 40 Mg Tablet) 80 mg PO BID [facility]; Protocol Last Admin: 02/21/22 20:04 Dose: 80 mg Documented By: BOGDAN Meropenem 1 gm/ Sodium (Chloride) 100 mls @ 200 mls/hr IV Q8H [facility] Last Infusion: 02/22/22 06:44 Dose: 0 mls/hr Documented By: CHRISTIANO Melatonin (Melatonin 3 Mg Tablet) 3 mg PO BEDTIME PRN PRN Reason: Insomnia Last Admin: 02/21/22 01:53 Dose: 3 mg Documented By: ALIN Morphine Sulfate (Morphine Sulfate 4 Mg/Ml Cartridge) 3 mg IVPUSH Q4H PRN; Protocol PRN Reason: Pain, Severe (Pain Scale 7-10) Last Admin: 02/19/22 22:19 Dose: 3 mg Documented By: DEIRDRE Omeprazole (Omeprazole 20 Mg Capsule.Dr) 20 mg PO DAILY@0630 [facility] Last Admin: 02/22/22 06:13 Dose: 20 mg Documented By: CHRISTIANO Ondansetron HCl (Ondansetron Hcl 4 Mg/2 Ml Vial) 4 mg IVPUSH Q8H PRN PRN Reason: Nausea and Vomiting Last Admin: 02/18/22 14:17 Dose: 4 mg Documented By: LORI Oxycodone HCl (Oxycodone Hcl Immed Release 5 Mg Tablet) 5 mg PO Q6H PRN PRN Reason: Pain, Moderate (Pain Scale 4-6 Last Admin: 02/21/22 12:44 Dose: 5 mg Documented By: THOMAS Pharmacy Consult (Consult Rx Perform Med Rec) 1 each MISCELLANE ONCE PRN PRN Reason: Consult order Pharmacy Consult (Consult Rx Vancomycin Dosing) 1 each MISCELLANE DAILY PRN PRN Reason: Consult order Rivaroxaban (Rivaroxaban 15 Mg Tablet) 15 mg PO DAILY@1700 [facility] Last Admin: 02/21/22 16:17 Dose: 15 mg Documented By: THOMAS Sodium Bicarbonate (Sodium Bicarbonate 650 Mg Tablet) 650 mg PO BID [facility] Last Admin: 02/21/22 20:04 Dose: 650 mg Documented By: BOGDAN Sodium Chloride (0.9 % Sodium Chloride Flush 3 Ml Syringe) 3 ml IVFLUSH QSHIFT [facility] Last Admin: 02/22/22 00:15 Dose: 3 ml Documented By: CHRISTIANO Spironolactone (Spironolactone 25 Mg Tablet) 25 mg PO DAILY [facility]; Protocol Tamsulosin HCl (Tamsulosin Hcl 0.4 Mg Capsule) 0.4 mg PO DAILY [facility] Last Admin: 02/21/22 08:41 Dose: 0.4 mg Documented By: THOMAS Labs CBC & Chem 7: 02/18/22 06:19 02/21/22 05:33 Assessment and Plan (1) Cellulitis of buttock: Status: Acute (2) Traumatic perforation of rectum: Status: Acute (3) Fall: Status: Acute (4) Acute UTI: Status: Acute (5) Open wnd of buttock: Status: Acute Plan d#6 77yo M with hx chronic HFrEF, AF s/p PPM 2019 AC on rivaroxaban, CKD3, brought in after falling in the [place] while intoxicated and developing an open anal wound with fecal drainage admitted for perirectal perforation/cellulitis # perirectal perforation/cellulitis - Surgery following, stable on CT, advanced diet, no surgery for now [very high risk for Surgery per Cardiology] - ID consulted, narrowed ABX from vanco + pip/missael to meropenem alone to cover ESBL UTI- on d#2 # chronic HFrEF # NSVT # AF - Cardiology consulted: Echocardiogram with LVEF of 15-20% with regional as well as global wall motion abnormalities.? Varying degrees of valvular regurgitation and some pulmonary hypertension.? There is significant dilatation of ascending aortic size at 5 cm. Unknown coronary status. Overall, he is at high risk for any surgical procedures for perforation of rectum.? is a d efinite possibility.? Hence proceed only if absolutely necessary and life saving. Discussed with Dr. Garza. With regard to pacemaker, this is the leadless device.? Interrogated.? Indication listed as AT/AF and sinus node dysfunction.? Battery life more than 8 years.? Normal lead parameters.? Ve ntricular pacing 55% the time.? Overall, normal device function. - continue carvedilol, enalapril, rivaroxaban, spironolactone, furosemide # ESBL UTI [Klebsiella pneumoniae] - meropenem d#2 # CKD3 # metabolic acidosis - continue sodium bicarbonate, follow BMP # hyperK, mild - SZC, recheck BMP in AM # VTE ppx: rivaroxaban In my clinical judgment, the patient requires continued inpatient hospit alization for the following reasons: IV ABX Quality Stroke Does the patient have a stroke diagnosis?: No VTE Prior VTE?: No VTE Risk Level:: Medical - moderate - high VTE Device Contraindication: N/A - Device Ordered VTE Drug Contraindication: Treatment Not Indicated
[2022-02-22 10:49] LABS: Hematocrit 33.8 % (42.0-52.0); Mean Corpuscular HGB Conc 32.5 g/dl (31.0-36.0); Mean Corpuscular Hemoglobin 27.8 pg (27.0-33.0); Mean Corpuscular Volume 85.6 fL (80.0-98.0); Mean Platelet Volume 9.9 fL (9.4-12.4); Platelet Count 314 X10*3/uL (160-400); Red Blood Count 3.95 X10*6/uL (4.60-5.80); Red Cell Distribution Width 17.6 % (11.0-16.0); White Blood Count 8.5 X10*3/uL (4.8-10.8)
--- NOTE | 2022-02-22 10:51 | P.CDIC_ITS ---
CDI Concurrent Query Documentation Clarification: PHYSICIAN'S DOCUMENTATION REQUEST Date of Query: 02/22/22 1051 Patient Name: Pancho Huang Admit Date: 02/17/22 Dear Doctor, A review of the medical record indicates additional documentation may be needed. Please review below and update the documentation accordingly. Clinical Indicators: Risk Factors/Clinical Indicators/Treatments H&P 02/17 - patient is a poor historian/underlying Dementia, unable to give detailed history. UTI/son says patient drinks alot of alcohol. Based on the above, could you clarify in the Progress Notes which, if any of the following, is the most likely etiology of the altered mental status? * Encephalopathy - metabolic, toxic, septic, alcoholic, hypertensive, etc. * Dementia - indicate type of dementia, such as Alzheimer's, senile, vascular, Lewy body, etc. * Baseline dementia * Other etiology (please specify) * Unable to determine Use of terms such as suspected, likely, concern for, or probable (associated with a specific diagnosis that is being evaluated, monitored, or treated as if it exists) are acceptable and can be coded in the inpatient setting, when documented at the time of discharge. Thank you, Mehnaz Oliver [facility], CDIS Extension [phone] Please use your independent medical judgment in providing your response. THIS QUERY IS PART OF THE PERMANENT MEDICAL RECORD Provider Response: Other Other Diagnosis: dementia unable shaheen determine type
[2022-02-22 11:06] LABS: C Reactive Protein 2.81 mg/dL (< or = 0.50)
[2022-02-22 11:13] LABS: Anion Gap 14 (12-20); Blood Urea Nitrogen 17 mg/dL (9-16); Calcium 8.2 mg/dL (8.4-10.2); Carbon Dioxide 22 mmol/L (22-29); Chloride 103 mmol/L (96-108); Creatinine Clr Calc Pharmacy 46.2; Estimated Glomerular Filt Rate 50; Glucose Random 117 mg/dL (60-115); Potassium 3.9 mmol/L (3.3-5.1); Sodium 135 mmol/L (135-145)
[2022-02-22 11:34] VITALS: BP 124/83; PULSE 90; RESP 18; TEMP 36.6; O2SAT 95
[2022-02-22 12:06] LABS: Vancomycin Trough 19.4 mcg/mL (10.0-20.0)
[2022-02-22 15:41] VITALS: BP 115/75; PULSE 65; RESP 17; TEMP 37; O2SAT 99
--- NOTE | 2022-02-22 15:58 | MHC.CM.PN ---
PT is recommending STR; CM will continue to follow. SNF search has been initiated.
[2022-02-22] MEDS: Rivaroxaban 15 MG TABLET PO (16:01)
[2022-02-22 20:00] VITALS: BP 109/76; PULSE 91; RESP 18; TEMP 36.8; O2SAT 99
[2022-02-22 23:35] VITALS: BP 117/82; PULSE 95; RESP 14; TEMP 36.7; O2SAT 99
[2022-02-23] VITALS (7 sets, daily range): BP systolic 97–136; BP diastolic 60–97; PULSE 62–108; RESP 14–18; TEMP 34.9–37.4; O2SAT 95–99
[2022-02-23] MEDS: Morphine Sulfate 4 MG/ML CARTRIDGE 3 MG IVPUSH (00:18)
[2022-02-23] MEDS: Omeprazole 20 MG CAPSULE.DR PO (06:05)
[2022-02-23 06:47] LABS: Hematocrit 34.5 % (42.0-52.0); Hemoglobin 11.5 g/dl (14.0-18.0); Mean Corpuscular HGB Conc 33.3 g/dl (31.0-36.0); Mean Corpuscular Hemoglobin 27.9 pg (27.0-33.0); Mean Corpuscular Volume 83.7 fL (80.0-98.0); Mean Platelet Volume 10.2 fL (9.4-12.4); Platelet Count 331 X10*3/uL (160-400); Red Blood Count 4.12 X10*6/uL (4.60-5.80); Red Cell Distribution Width 17.7 % (11.0-16.0); White Blood Count 10.2 X10*3/uL (4.8-10.8)
[2022-02-23 07:08] LABS: Anion Gap 14 (12-20); Blood Urea Nitrogen 18 mg/dL (9-16); Calcium 8.3 mg/dL (8.4-10.2); Carbon Dioxide 27 mmol/L (22-29); Chloride 99 mmol/L (96-108); Creatinine Clr Calc Pharmacy 51.4; Estimated Glomerular Filt Rate 56; Glucose Random 96 mg/dL (60-115); Potassium 3.9 mmol/L (3.3-5.1); Sodium 136 mmol/L (135-145)
--- NOTE | 2022-02-23 08:02 | P.PNGS_ITS ---
Subjective Subjective Date of Service: 02/24/22 Interval history: Patient complains of pain when he urinates. Tolerated food without nausea or vomiting. Reports diarrhea. Physical Exam Vital Signs: Vital Signs: Last Vital Signs Temp 97.8 F 02/23/22 07:40 Pulse 108 H 02/23/22 07:40 Resp 18 02/23/22 07:40 BP 136/97 H 02/23/22 07:40 Pulse Ox 98 02/23/22 07:40 O2 Del Method 02/23/22 07:40 BMI result Body Mass Index 26.4 Const: General: no acute distress and well developed Nutritional Appearance: well nourished Orientation/consciousness: patient oriented x3 Limitations: no limitations Resp: Effort & Inspection: normal respiratory effort Auscultation: clear to auscultation bilaterally GI: Inspection: Yes normal to inspection Palpation (GI): Soft to palpation, nontender and not rigid : Other: urine clear, nonbloody Back/Spine/Pelvis: Other: Granulating wound with fecalent discharge Neuro: General: patient oriented x3 Extrem: General: Yes no clubbing, cyanosis or edema Objective Data Active Medications Acetaminophen (Acetaminophen 325 Mg Tablet) 650 mg PO Q6H PRN PRN Reason: Pain, Mild (Pain Scale 1-3) Last Admin: 02/21/22 12:45 Dose: 650 mg Documented By: THOMAS Benzonatate (Benzonatate 100 Mg Capsule) 100 mg PO TID PRN PRN Reason: Cough Last Admin: 02/22/22 16:03 Dose: 100 mg Documented By: BOGDAN Carvedilol (Carvedilol 6.25 Mg Tablet) 6.25 mg PO BID [facility]; Protocol Last Admin: 02/22/22 22:13 Dose: 6.25 mg Documented By: HIPOLITO Enalapril Maleate (Enalapril Maleate 2.5 Mg Tablet) 2.5 mg PO BID [facility]; Protocol Last Admin: 02/22/22 22:13 Dose: 2.5 mg Documented By: HIPOLITO Folic Acid (Folic Acid 1 Mg Tablet) 1 mg PO DAILY [facility] Last Admin: 02/22/22 10:05 Dose: 1 mg Documented By: TIP Furosemide (Furosemide 40 Mg Tablet) 80 mg PO BID [facility]; Protocol Last Admin: 02/22/22 22:14 Dose: 80 mg Documented By: HIPOLITO Meropenem 1 gm/ Sodium (Chloride) 100 mls @ 200 mls/hr IV Q8H [facility] Last Infusion: 02/22/22 23:57 Dose: 0 mls/hr Documented By: HIPOLITO Melatonin (Melatonin 3 Mg Tablet) 3 mg PO BEDTIME PRN PRN Reason: Insomnia Last Admin: 02/21/22 01:53 Dose: 3 mg Documented By: ALIN Morphine Sulfate (Morphine Sulfate 4 Mg/Ml Cartridge) 3 mg IVPUSH Q4H PRN; Protocol PRN Reason: Pain, Severe (Pain Scale 7-10) Last Admin: 02/23/22 00:18 Dose: 3 mg Documented By: HIPOLITO Omeprazole (Omeprazole 20 Mg Capsule.Dr) 20 mg PO DAILY@0630 [facility] Last Admin: 02/23/22 06:05 Dose: 20 mg Documented By: HIPOLITO Ondansetron HCl (Ondansetron Hcl 4 Mg/2 Ml Vial) 4 mg IVPUSH Q8H PRN PRN Reason: Nausea and Vomiting Last Admin: 02/18/22 14:17 Dose: 4 mg Documented By: LORI Oxycodone HCl (Oxycodone Hcl Immed Release 5 Mg Tablet) 5 mg PO Q6H PRN PRN Reason: Pain, Moderate (Pain Scale 4-6 Last Admin: 02/21/22 12:44 Dose: 5 mg Documented By: THOMAS Pharmacy Consult (Consult Rx Perform Med Rec) 1 each MISCELLANE ONCE PRN PRN Reason: Consult order Pharmacy Consult (Consult Rx Vancomycin Dosing) 1 each MISCELLANE DAILY PRN PRN Reason: Consult order Rivaroxaban (Rivaroxaban 15 Mg Tablet) 15 mg PO DAILY@1700 [facility] Last Admin: 02/22/22 16:01 Dose: 15 mg Documented By: BOGDAN Sodium Bicarbonate (Sodium Bicarbonate 650 Mg Tablet) 650 mg PO BID [facility] Last Admin: 02/22/22 22:14 Dose: 650 mg Documented By: HIPOLITO Sodium Chloride (0.9 % Sodium Chloride Flush 3 Ml Syringe) 3 ml IVFLUSH QSHIFT [facility] Last Admin: 02/22/22 22:15 Dose: 3 ml Documented By: HO.DESROA Spironolactone (Spironolactone 25 Mg Tablet) 25 mg PO DAILY [facility]; Protocol Last Admin: 02/22/22 10:05 Dose: 25 mg Documented By: TIP Tamsulosin HCl (Tamsulosin Hcl 0.4 Mg Capsule) 0.4 mg PO DAILY [facility] Last Admin: 02/22/22 10:06 Dose: 0.4 mg Documented By: TIP Labs CBC & Chem 7: 02/23/22 06:28 02/23/22 06:28 Labs: Laboratory Results - last 24 hr 02/22/22 02/22/22 02/22/22 10:38 10:38 10:38 MCV 85.6 MCH 27.8 MCHC 32.5 RDW 17.6 H Plt Count 314 MPV 9.9 Absolute Nucleated RBC 0.000 Nucleated RBC % (auto) 0.0 Anion Gap 14 Estim Creat Clear Calc 46.2 Estimated GFR 50 Random Glucose 117 H D Calcium 8.2 L C-Reactive Protein Vancomycin Trough 19.4 02/22/22 02/23/22 02/23/22 10:38 06:28 06:28 MCV 83.7 MCH 27.9 MCHC 33.3 RDW 17.7 H Plt Count 331 MPV 10.2 Absolute Nucleated RBC 0.000 Nucleated RBC % (auto) 0.0 Anion Gap 14 Estim Creat Clear Calc 51.4 Estimated GFR 56 Random Glucose 96 Calcium 8.3 L C-Reactive Protein 2.81 H Vancomycin Trough Microbiology Microbiology Results: Microbiology 02/17/22 14:04 Blood Culture - Final Blood - Venous No growth after 5 days. 02/17/22 13:05 Blood Culture - Final Blood - Venous No growth after 5 days. Procedures Date of Service Date of Service: 02/23/22 Progress Note: A&P Assessment and plan (1) Traumatic perforation of rectum: Status: Acute (2) Open wnd of buttock: Status: Acute Plan 77-year-old male patient admitted after fall in [place]. Patient found to have a large open wound with [place] rectal collection. Wounds are open and draining, and WBC remains normal. Discussed with Dr. De Guzman; may be able to drain the collection under local anesthesia through the open wound. Patient now complaining of burning with urine, ? UTI Time Spent With Patient Time: Total time spent is greater than 50% in coordination of care (as documented) at patient's floor/unit and/or counseling patient: No Severe Sepsis: No Severe Sepsis Quality Stroke Does the patient have a stroke diagnosis?: No VTE Prior VTE?: No VTE Risk Level:: Medical - moderate - high VTE Device Contraindication: N/A - Device Ordered VTE Drug Contraindication: Treatment Not Indicated
[2022-02-23] MEDS: Tamsulosin HCL 0.4 MG CAPSULE PO (09:14)
[2022-02-23] MEDS: 0.9 % Sodium Chloride Flush 3 ML SYRINGE IVFLUSH ×2 (09:15→15:44)
[2022-02-23] MEDS: carvediloL 6.25 MG TABLET PO ×2 (09:15→20:51)
[2022-02-23] MEDS: Sodium Bicarbonate 650 MG TABLET PO ×2 (09:15→20:51)
[2022-02-23] MEDS: Furosemide 40 MG TABLET 80 MG PO ×2 (09:15→20:51)
[2022-02-23] MEDS: Spironolactone 25 MG TABLET PO (09:15)
[2022-02-23] MEDS: Folic Acid 1 MG TABLET PO (09:15)
--- NOTE | 2022-02-23 09:56 | P.PNIM_ITS ---
Subjective Subjective Date of Service: 02/23/22 Interval History: This history was taken in [place] from the patient. C/o difficulty urinating/retention Rectal pain controlled No chest pain Review of Systems Review of Systems: Yes all other systems are reviewed and are negative Physical Exam Vital Signs: Vital Signs: Last Vital Signs Temp 97.8 F 02/23/22 07:40 Pulse 108 H 02/23/22 07:40 Resp 18 02/23/22 07:40 BP 136/97 H 02/23/22 07:40 Pulse Ox 98 02/23/22 07:40 O2 Del Method 02/23/22 07:40 BMI result Body Mass Index 26.4 Gen: in discomfort HEENT: sclera anicteric, moist mucus membranes Neck: supple Lungs: clear to auscultation bilaterally Heart: regular rate and rhythm, no murmurs Abd: soft, suprapubic tenderness, non-distended, anal wounds granulating Ext: no edema Skin: warm/well-perfused Neuro: alert and oriented x3, no focal findings Psych: appropriate affect Objective Data Active Medications Acetaminophen (Acetaminophen 325 Mg Tablet) 650 mg PO Q6H PRN PRN Reason: Pain, Mild (Pain Scale 1-3) Last Admin: 02/21/22 12:45 Dose: 650 mg Documented By: THOMAS Benzonatate (Benzonatate 100 Mg Capsule) 100 mg PO TID PRN PRN Reason: Cough Last Admin: 02/22/22 16:03 Dose: 100 mg Documented By: BOGDAN Carvedilol (Carvedilol 6.25 Mg Tablet) 6.25 mg PO BID [facility]; Protocol Last Admin: 02/23/22 09:15 Dose: 6.25 mg Documented By: PIEDAD Enalapril Maleate (Enalapril Maleate 2.5 Mg Tablet) 2.5 mg PO BID [facility]; Protocol Last Admin: 02/23/22 09:14 Dose: 2.5 mg Documented By: PIEDAD Folic Acid (Folic Acid 1 Mg Tablet) 1 mg PO DAILY [facility] Last Admin: 02/23/22 09:15 Dose: 1 mg Documented By: PIEDAD Furosemide (Furosemide 40 Mg Tablet) 80 mg PO BID [facility]; Protocol Last Admin: 02/23/22 09:15 Dose: 80 mg Documented By: PIEDAD Meropenem 1 gm/ Sodium (Chloride) 100 mls @ 200 mls/hr IV Q8H [facility] Last Admin: 02/23/22 09:07 Dose: Not Given Documented By: KERRIE Non-Admin Reason: pt refused per previous shift Melatonin (Melatonin 3 Mg Tablet) 3 mg PO BEDTIME PRN PRN Reason: Insomnia Last Admin: 02/21/22 01:53 Dose: 3 mg Documented By: ALIN Morphine Sulfate (Morphine Sulfate 4 Mg/Ml Cartridge) 3 mg IVPUSH Q4H PRN; Protocol PRN Reason: Pain, Severe (Pain Scale 7-10) Last Admin: 02/23/22 00:18 Dose: 3 mg Documented By: HIPOLITO Omeprazole (Omeprazole 20 Mg Capsule.Dr) 20 mg PO DAILY@0630 [facility] Last Admin: 02/23/22 06:05 Dose: 20 mg Documented By: HIPOLITO Ondansetron HCl (Ondansetron Hcl 4 Mg/2 Ml Vial) 4 mg IVPUSH Q8H PRN PRN Reason: Nausea and Vomiting Last Admin: 02/18/22 14:17 Dose: 4 mg Documented By: LORI Oxycodone HCl (Oxycodone Hcl Immed Release 5 Mg Tablet) 5 mg PO Q6H PRN PRN Reason: Pain, Moderate (Pain Scale 4-6 Last Admin: 02/21/22 12:44 Dose: 5 mg Documented By: THOMAS Pharmacy Consult (Consult Rx Perform Med Rec) 1 each MISCELLANE ONCE PRN PRN Reason: Consult order Pharmacy Consult (Consult Rx Vancomycin Dosing) 1 each MISCELLANE DAILY PRN PRN Reason: Consult order Rivaroxaban (Rivaroxaban 15 Mg Tablet) 15 mg PO DAILY@1700 [facility] Last Admin: 02/22/22 16:01 Dose: 15 mg Documented By: BOGDAN Sodium Bicarbonate (Sodium Bicarbonate 650 Mg Tablet) 650 mg PO BID [facility] Last Admin: 02/23/22 09:15 Dose: 650 mg Documented By: PIEDAD Sodium Chloride (0.9 % Sodium Chloride Flush 3 Ml Syringe) 3 ml IVFLUSH QSHIFT [facility] Last Admin: 02/23/22 09:15 Dose: 3 ml Documented By: PIEDAD Spironolactone (Spironolactone 25 Mg Tablet) 25 mg PO DAILY [facility]; Protocol Last Admin: 02/23/22 09:15 Dose: 25 mg Documented By: PIEDAD Tamsulosin HCl (Tamsulosin Hcl 0.4 Mg Capsule) 0.4 mg PO DAILY [facility] Last Admin: 02/23/22 09:14 Dose: 0.4 mg Documented By: PIEDAD Labs CBC & Chem 7: 02/23/22 06:28 02/23/22 06:28 Labs: Laboratory Results - last 24 hr 02/22/22 02/22/22 02/22/22 10:38 10:38 10:38 MCV 85.6 MCH 27.8 MCHC 32.5 RDW 17.6 H Plt Count 314 MPV 9.9 Absolute Nucleated RBC 0.000 Nucleated RBC % (auto) 0.0 Anion Gap 14 Estim Creat Clear Calc 46.2 Estimated GFR 50 Random Glucose 117 H D Calcium 8.2 L C-Reactive Protein Vancomycin Trough 19.4 02/22/22 02/23/22 02/23/22 10:38 06:28 06:28 MCV 83.7 MCH 27.9 MCHC 33.3 RDW 17.7 H Plt Count 331 MPV 10.2 Absolute Nucleated RBC 0.000 Nucleated RBC % (auto) 0.0 Anion Gap 14 Estim Creat Clear Calc 51.4 Estimated GFR 56 Random Glucose 96 Calcium 8.3 L C-Reactive Protein 2.81 H Vancomycin Trough Microbiology Microbiology Results: Microbiology 02/17/22 14:04 Blood Culture - Final Blood - Venous No growth after 5 days. 02/17/22 13:05 Blood Culture - Final Blood - Venous No growth after 5 days. Assessment and Plan (1) Cellulitis of buttock: Status: Acute (2) Traumatic perforation of rectum: Status: Acute (3) Fall: Status: Acute (4) Acute UTI: Status: Acute (5) Open wnd of buttock: Status: Acute Plan d#6 77yo M with hx chronic HFrEF, AF s/p PPM 2019 AC on rivaroxaban, CKD3, unspecified dementia, brought in after falling in the [place] while intoxicated and developing an open anal wound with fecal drainage admitted for perirectal perforation/cellulitis # urinary discomfort/retention - bladder scan, straight cath # perirectal perforation/cellulitis - Surgery following, stable on CT, advanced diet, no surgery for now [very high risk for Surgery per Cardiology] - ID consulted, narrowed ABX from vanco + pip/missael to meropenem alone to cover ESBL UTI- on d#3 # chronic HFrEF # NSVT # AF - Cardiology consulted: Echocardiogram with LVEF of 15-20% with regional as well as global wall motion abnormalities.? Varying degrees of valvular regurgitation and some pulmonary hypertension.? There is significant dilatation of ascending aortic size at 5 cm. Unknown coronary status. Overall, he is at high risk for any surgical procedures for perforation of rectum.? is a definite possibility.? Hence proceed only if absolutely necessary and life saving. Discussed with Dr. Garza. With regard to pacemaker, this is the leadless device.? Interrogated.? Indication listed as AT/AF and sinus node dysfunction.? Battery life more than 8 years.? Normal lead parameters.? Ventricular pacing 55% the time.? Overall, normal device function. - continue carvedilol, enalapril, rivaroxaban, spironolactone, furosemide # ESBL UTI [Klebsiella pneumoniae] - meropenem d#3 # CKD3 # metabolic acidosis - continue sodium bicarbonate, follow BMP # hyperK, mild - resoved after 1 dose SZC # dementia, unspecified - no behavioral disturbance # VTE ppx: rivaroxaban In my clinical judgment, the patient requires continued inpatient hospitalization for the following reasons: IV ABX Quality Stroke Does the patient have a stroke diagnosis?: No VTE Prior VTE?: No VTE Risk Level:: Medical - moderate - high VTE Device Contraindication: N/A - Device Ordered VTE Drug Contraindication: Treatment Not Indicated
[2022-02-23] MEDS: Rivaroxaban 15 MG TABLET PO (15:44)
[2022-02-23] MEDS: oxyCODONE HCl Immed Release 5 MG TABLET PO ×2 (16:31→18:56)
[2022-02-24] MEDS: 0.9 % Sodium Chloride Flush 3 ML SYRINGE IVFLUSH ×2 (00:25→08:18)
[2022-02-24 03:42] VITALS: BP 134/84; PULSE 75; RESP 14; TEMP 36.8; O2SAT 98
--- NOTE | 2022-02-24 04:20 | PC.NURSE ---
Incontinent large amt urine,bladder scanned for 217cc residual.No str cath needed.
[2022-02-24] MEDS: Omeprazole 20 MG CAPSULE.DR PO (05:55)
[2022-02-24 07:54] VITALS: BP 126/68; PULSE 76; RESP 12; TEMP 36.8; O2SAT 99
[2022-02-24] MEDS: Folic Acid 1 MG TABLET PO (08:19)
[2022-02-24] MEDS: Tamsulosin HCL 0.4 MG CAPSULE PO (08:19)
[2022-02-24] MEDS: Furosemide 40 MG TABLET 80 MG PO ×2 (08:19→22:03)
[2022-02-24] MEDS: Spironolactone 25 MG TABLET PO (08:19)
[2022-02-24] MEDS: carvediloL 6.25 MG TABLET PO ×2 (08:19→22:03)
[2022-02-24] MEDS: Sodium Bicarbonate 650 MG TABLET PO ×2 (08:19→22:03)
[2022-02-24] MEDS: oxyCODONE HCl Immed Release 5 MG TABLET PO ×2 (08:26→22:13)
--- NOTE | 2022-02-24 09:52 | P.PNIM_ITS ---
Subjective Subjective Date of Service: 02/24/22 Interval History: This history was taken in Hebrew from the patient. 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 no dizziness CVS no chest pain Physical Exam Vital Signs: Vital Signs: Last Vital Signs Temp 98.2 F 02/24/22 07:54 Pulse 76 02/24/22 07:54 Resp 12 02/24/22 07:54 BP 126/68 02/24/22 07:54 Pulse Ox 99 02/24/22 07:54 O2 Del Method 02/24/22 08:18 O2 Flow Rate 3 02/24/22 07:54 BMI result Body Mass Index 26.4 Const: Other: Gen: in discomfort HEENT: sclera anicteric, moist mucus membranes Neck: supple Lungs: clear to auscultation bilaterally Heart: regular rate and rhythm, no murmurs Abd: soft, suprapubic tenderness, non-distended, anal wounds granulating Ext: no edema Skin: warm/well-perfused Neuro: alert and oriented x3, no focal findings Psych: appropriate affect ? Objective Data Active Medications Acetaminophen (Acetaminophen 325 Mg Tablet) 650 mg PO Q6H PRN PRN Reason: Pain, Mild (Pain Scale 1-3) Last Admin: 02/21/22 12:45 Dose: 650 mg Documented By: THOMAS Benzonatate (Benzonatate 100 Mg Capsule) 100 mg PO TID PRN PRN Reason: Cough Last Admin: 02/22/22 16:03 Dose: 100 mg Documented By: BOGDAN Carvedilol (Carvedilol 6.25 Mg Tablet) 6.25 mg PO BID [facility]; Protocol Last Admin: 02/24/22 08:19 Dose: 6.25 mg Documented By: BEATRICE Enalapril Maleate (Enalapril Maleate 2.5 Mg Tablet) 2.5 mg PO BID [facility]; Protocol Last Admin: 02/24/22 08:19 Dose: 2.5 mg Documented By: BEATRICE Folic Acid (Folic Acid 1 Mg Tablet) 1 mg PO DAILY [facility] Last Admin: 02/24/22 08:19 Dose: 1 mg Documented By: BEATRICE Furosemide (Furosemide 40 Mg Tablet) 80 mg PO BID [facility]; Protocol Last Admin: 02/24/22 08:19 Dose: 80 mg Documented By: BEATRICE Meropenem 1 gm/ Sodium (Chloride) 100 mls @ 200 mls/hr IV Q8H [facility] Last Infusion: 02/24/22 00:07 Dose: 0 mls/hr Documented By: SAMUEL Melatonin (Melatonin 3 Mg Tablet) 3 mg PO BEDTIME PRN PRN Reason: Insomnia Last Admin: 02/21/22 01:53 Dose: 3 mg Documented By: ALIN Omeprazole (Omeprazole 20 Mg Capsule.) 20 mg PO DAILY@0630 [facility] Last Admin: 02/24/22 05:55 Dose: 20 mg Documented By: ILAN Ondansetron HCl (Ondansetron Hcl 4 Mg/2 Ml Vial) 4 mg IVPUSH Q8H PRN PRN Reason: Nausea and Vomiting Last Admin: 02/18/22 14:17 Dose: 4 mg Documented By: LORI Oxycodone HCl (Oxycodone Hcl Immed Release 5 Mg Tablet) 5 mg PO Q6H PRN PRN Reason: Pain, Mild (Pain Scale 1-3) Last Admin: 02/24/22 08:26 Dose: 5 mg Documented By: BEATRICE Pharmacy Consult (Consult Rx Perform Med Rec) 1 each MISCELLANE ONCE PRN PRN Reason: Consult order Pharmacy Consult (Consult Rx Vancomycin Dosing) 1 each MISCELLANE DAILY PRN PRN Reason: Consult order Rivaroxaban (Rivaroxaban 15 Mg Tablet) 15 mg PO DAILY@1700 [facility] Last Admin: 02/23/22 15:44 Dose: 15 mg Documented By: KERRIE Sodium Bicarbonate (Sodium Bicarbonate 650 Mg Tablet) 650 mg PO BID [facility] Last Admin: 02/24/22 08:19 Dose: 650 mg Documented By: BEATRICE Sodium Chloride (0.9 % Sodium Chloride Flush 3 Ml Syringe) 3 ml IVFLUSH QSHIFT [facility] Last Admin: 02/24/22 08:18 Dose: 3 ml Documented By: BEATRICE Spironolactone (Spironolactone 25 Mg Tablet) 25 mg PO DAILY [facility]; Protocol Last Admin: 02/24/22 08:19 Dose: 25 mg Documented By: BEATRICE Tamsulosin HCl (Tamsulosin Hcl 0.4 Mg Capsule) 0.4 mg PO DAILY [facility] Last Admin: 02/24/22 08:19 Dose: 0.4 mg Documented By: BEATRICE Labs CBC & Chem 7: 02/23/22 06:28 02/23/22 06:28 Assessment and Plan (1) Cellulitis of buttock: Status: Acute (2) Traumatic perforation of rectum: Status: Acute (3) Fall: Status: Acute (4) Acute UTI: Status: Acute (5) Open wnd of buttock: Status: Acute Plan d#7 77yo M with hx chronic HFrEF, AF s/p PPM 2019 AC on rivaroxaban, CKD3, unspecified dementia, brought in after falling in the [place] while intoxicated and developing an open anal wound with fecal drainage admitted for perirectal perforation/cellulitis # urinary discomfort/retention - bladder scan, straight cath PRN # perirectal perforation/cellulitis - Surgery following, stable on CT, advanced diet, no surgery for now [very high risk for Surgery per Cardiology] - ID consulted, narrowed ABX from vanco + pip/missael to meropenem alone to cover ESBL UTI- on d#4 # chronic HFrEF # NSVT # AF - Cardiology consulted: Echocardiogram with LVEF of 15-20% with regional as well as global wall motion abnormalities.? Varying degrees of valvular regurgitation and some pulmonary hypertension.? There is significant dilatation of ascending aortic size at 5 cm. Unknown coronary status. Overall, he is at high risk for any surgical procedures for perforation of rectum.? is a definite possibility.? Hence proceed only if absolutely necessary and life saving. Discussed with Dr. Garza. With regard to pacemaker, this is the leadless device.? Interrogated.? Indication listed as AT/AF and sinus node dysfunction.? Battery life more than 8 years.? Normal lead parameters.? Ventricular pacing 55% the time.? Overall, normal device function. - continue carvedilol, enalapril, rivaroxaban, spironolactone, furosemide # ESBL UTI [Klebsiella pneumoniae] - meropenem d#4, lenght of therapy to be determined by ID # [id number] # metabolic acidosis - continue sodium bicarbonate, follow BMP # hyperK, mild - resoved after 1 dose SZC # dementia, unspecified - no behavioral disturbance # VTE ppx: rivaroxaban PT recommends STR In my clinical judgment, the patient requires continued inpatient hospitalization for the following reasons: IV ABX Quality Stroke Does the patient have a stroke diagnosis?: No VTE Prior VTE?: No VTE Risk Level:: Medical - moderate - high VTE Device Contraindication: N/A - Device Ordered VTE Drug Contraindication: Treatment Not Indicated
[2022-02-24 11:22] VITALS: BP 92/59; PULSE 76; RESP 12; TEMP 36.8; O2SAT 96
[2022-02-24 15:29] VITALS: BP 102/69; PULSE 77; RESP 17; TEMP 37.1; O2SAT 97
--- NOTE | 2022-02-24 16:05 | MHC.CM.PN ---
per rounds pt will be here over the weekend he will be getting iv antibiotics
[2022-02-24] MEDS: Rivaroxaban 15 MG TABLET PO (16:57)
[2022-02-24 20:00] VITALS: BP 167/72; PULSE 91; RESP 17; TEMP 37; O2SAT 95
[2022-02-25] VITALS (10 sets, daily range): BP systolic 84–154; BP diastolic 45–82; PULSE 62–104; RESP 18–20; TEMP 36.3–37.7; O2SAT 93–97
[2022-02-25] MEDS: 0.9 % Sodium Chloride Flush 3 ML SYRINGE IVFLUSH ×3 (00:52→23:46)
[2022-02-25] MEDS: Morphine Sulfate 4 MG/ML CARTRIDGE IVPUSH (05:17)
[2022-02-25] MEDS: Omeprazole 20 MG CAPSULE.DR PO (05:17)
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
[2022-02-25] MEDS: Tamsulosin HCL 0.4 MG CAPSULE PO (09:33)
[2022-02-25] MEDS: Furosemide 40 MG TABLET 80 MG PO (09:33)
[2022-02-25] MEDS: Spironolactone 25 MG TABLET PO (09:33)
[2022-02-25] MEDS: Sodium Bicarbonate 650 MG TABLET PO ×2 (09:33→21:00)
[2022-02-25] MEDS: carvediloL 6.25 MG TABLET PO ×2 (09:33→21:00)
[2022-02-25] MEDS: Folic Acid 1 MG TABLET PO (09:33)
--- NOTE | 2022-02-25 15:31 | PM.EVENT ---
Event Note Date of Service: 02/25/22 Event Note: BP low- 88/50 RUE, 84/40s LUE. HR 92. No symptoms Will hold furosemide + enalapril and give 500ML NS then recheck BP
[2022-02-25] MEDS: 0.9 % Sodium Chloride 500 ML 250 ML IVCONT (15:42)
[2022-02-25] MEDS: Rivaroxaban 15 MG TABLET PO (17:52)
[2022-02-25] MEDS: ondansetron HCL 4 MG/2 ML VIAL IVPUSH (17:52)
[2022-02-25] MEDS: Nystatin Powder 15 GM BOTTLE 1 APPL TOPICAL (21:00)
[2022-02-26 03:53] VITALS: BP 102/77; PULSE 98; RESP 20; TEMP 37.1; O2SAT 96
[2022-02-26] MEDS: Omeprazole 20 MG CAPSULE.DR PO (05:39)
[2022-02-26 07:37] VITALS: BP 104/72; PULSE 93; RESP 20; TEMP 36.8; O2SAT 97
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
[2022-02-26] MEDS: Folic Acid 1 MG TABLET PO (09:00)
[2022-02-26] MEDS: Tamsulosin HCL 0.4 MG CAPSULE PO (09:00)
[2022-02-26] MEDS: carvediloL 6.25 MG TABLET PO ×2 (09:00→21:57)
[2022-02-26] MEDS: Sodium Bicarbonate 650 MG TABLET PO ×2 (09:00→21:57)
[2022-02-26] MEDS: Spironolactone 25 MG TABLET PO (09:00)
[2022-02-26] MEDS: 0.9 % Sodium Chloride Flush 3 ML SYRINGE IVFLUSH ×3 (09:01→23:43)
[2022-02-26] MEDS: Nystatin Powder 15 GM BOTTLE 1 APPL TOPICAL ×3 (09:01→21:57)
[2022-02-26 11:30] VITALS: BP 102/63; PULSE 101; RESP 20; TEMP 37.3; O2SAT 96
[2022-02-26 14:46] LABS: Basophils Absolute Auto 0.1 X10*3/uL (0.0-0.2); Basophils Percent Auto 1.1 % (0-2); Eosinophils Percent Auto 0.5 % (0-4); Hematocrit 34.9 % (42.0-52.0); Hemoglobin 11.3 g/dl (14.0-18.0); Imm Gran Abs Auto 0.04 X10*3/uL (0.00-0.03); Imm Gran Pct Auto 0.6 % (0.0-0.4); Lymphocytes Absolute Auto 1.2 X10*3/uL (1.2-4.9); Lymphocytes Percent Auto 18.7 % (20-40); MANUAL DIFF FLAG SCAN; Mean Corpuscular HGB Conc 32.4 g/dl (31.0-36.0); Mean Corpuscular Hemoglobin 27.7 pg (27.0-33.0); Mean Corpuscular Volume 85.5 fL (80.0-98.0); Monocytes Absolute Auto 1.3 X10*3/uL (0.1-1.2); Monocytes Percent Auto 20.6 % (2-11); Neutrophils Absolute Auto 3.6 x10*3/uL (2.0-8.3); Neutrophils Percent Auto 58.5 % (45-73); Platelet Count 293 X10*3/uL (160-400); Red Blood Count 4.08 X10*6/uL (4.60-5.80); Red Cell Distribution Width 17.8 % (11.0-16.0); SCAN SMEAR FLAG 1; White Blood Count 6.2 X10*3/uL (4.8-10.8)
[2022-02-26 15:06] LABS: Anion Gap 16 (12-20); Blood Urea Nitrogen 22 mg/dL (9-16); Calcium 8.4 mg/dL (8.4-10.2); Carbon Dioxide 29 mmol/L (22-29); Chloride 94 mmol/L (96-108); Creatinine Clr Calc Pharmacy 46.2; Estimated Glomerular Filt Rate 50; Glucose Random 135 mg/dL (60-115); Potassium 3.9 mmol/L (3.3-5.1); Sodium 135 mmol/L (135-145)
[2022-02-26 15:11] LABS: SLIDE REVIEW VERIFIED
[2022-02-26 15:25] VITALS: BP 108/69; PULSE 81; RESP 18; TEMP 36.7; O2SAT 98
[2022-02-26] MEDS: Rivaroxaban 15 MG TABLET PO (15:57)
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
[2022-02-26 19:19] VITALS: BP 100/60; PULSE 98; RESP 17; TEMP 36.5; O2SAT 97
[2022-02-26 23:22] VITALS: BP 106/71; PULSE 80; RESP 18; TEMP 37.3; O2SAT 98
[2022-02-27] MEDS: Omeprazole 20 MG CAPSULE.DR PO (05:42)
[2022-02-27 07:45] VITALS: BP 106/77; PULSE 76; RESP 18; TEMP 36.6; O2SAT 98
[2022-02-27] MEDS: Tamsulosin HCL 0.4 MG CAPSULE PO (09:24)
[2022-02-27] MEDS: carvediloL 6.25 MG TABLET PO ×2 (09:24→22:47)
[2022-02-27] MEDS: Folic Acid 1 MG TABLET PO (09:24)
[2022-02-27] MEDS: Sodium Bicarbonate 650 MG TABLET PO ×2 (09:24→22:47)
[2022-02-27] MEDS: Spironolactone 25 MG TABLET PO (09:24)
[2022-02-27 11:33] VITALS: BP 92/53; PULSE 86; RESP 18; TEMP 36.8; O2SAT 98
--- NOTE | 2022-02-27 11:53 | P.PNGS_ITS ---
Subjective Subjective Date of Service: 02/27/22 Interval history: No new complaints Abscess site draining spontaneously Physical Exam Vital Signs: Vital Signs: Last Vital Signs Temp 98.3 F 02/27/22 11:33 Pulse 86 02/27/22 11:33 Resp 18 02/27/22 11:33 BP 92/53 L 02/27/22 11:33 Pulse Ox 98 02/27/22 11:33 O2 Del Method 02/27/22 11:33 O2 Flow Rate 3 02/24/22 07:54 BMI result Body Mass Index 26.4 Const: General: comfortable and no acute distress Resp: Effort & Inspection: normal respiratory effort Cardio: Rate: regular rate GI: Other: Open wound draining, on the perianal area, no cellulitis, no induration Palpation (GI): Soft to palpation and nontender Objective Data Active Medications Acetaminophen (Acetaminophen 325 Mg Tablet) 650 mg PO Q6H PRN PRN Reason: Pain, Mild (Pain Scale 1-3) Last Admin: 02/21/22 12:45 Dose: 650 mg Documented By: THOMAS Benzonatate (Benzonatate 100 Mg Capsule) 100 mg PO TID PRN PRN Reason: Cough Last Admin: 02/22/22 16:03 Dose: 100 mg Documented By: BOGDAN Carvedilol (Carvedilol 6.25 Mg Tablet) 6.25 mg PO BID [facility]; Protocol Last Admin: 02/27/22 09:24 Dose: 6.25 mg Documented By: JEAN Folic Acid (Folic Acid 1 Mg Tablet) 1 mg PO DAILY [facility] Last Admin: 02/27/22 09:24 Dose: 1 mg Documented By: JEAN Meropenem 1 gm/ Sodium (Chloride) 100 mls @ 200 mls/hr IV Q8H [facility] Last Infusion: 02/27/22 07:43 Dose: 0 mls/hr Documented By: BEATRICE Melatonin (Melatonin 3 Mg Tablet) 3 mg PO BEDTIME PRN PRN Reason: Insomnia Last Admin: 02/21/22 01:53 Dose: 3 mg Documented By: ALIN Morphine Sulfate (Morphine Sulfate 4 Mg/Ml Cartridge) 4 mg IVPUSH Q4H PRN; Protocol PRN Reason: Pain, Severe (Pain Scale 7-10) Last Admin: 02/25/22 05:17 Dose: 4 mg Documented By: GUILLERMO Nystatin (Nystatin Powder 15 Gm Bottle) 1 appl TOPICAL TID [facility]; Protocol Last Admin: 02/27/22 09:37 Dose: Not Given Documented By: JEAN Non-Admin Reason: Patient Refused Omeprazole (Omeprazole 20 Mg Capsule.) 20 mg PO DAILY@0630 [facility] Last Admin: 02/27/22 05:42 Dose: 20 mg Documented By: TAYLORJ Ondansetron HCl (Ondansetron Hcl 4 Mg/2 Ml Vial) 4 mg IVPUSH Q8H PRN PRN Reason: Nausea and Vomiting Last Admin: 02/25/22 17:52 Dose: 4 mg Documented By: GEORGIASCDUNCAN Oxycodone HCl (Oxycodone Hcl Immed Release 5 Mg Tablet) 5 mg PO Q6H PRN PRN Reason: Pain, Mild (Pain Scale 1-3) Last Admin: 02/24/22 22:13 Dose: 5 mg Documented By: GUILLERMO Pharmacy Consult (Consult Rx Perform Med Rec) 1 each MISCELLANE ONCE PRN PRN Reason: Consult order Pharmacy Consult (Consult Rx Vancomycin Dosing) 1 each MISCELLANE DAILY PRN PRN Reason: Consult order Rivaroxaban (Rivaroxaban 15 Mg Tablet) 15 mg PO DAILY@1700 [facility] Last Admin: 02/26/22 15:57 Dose: 15 mg Documented By: ANNEL Sodium Bicarbonate (Sodium Bicarbonate 650 Mg Tablet) 650 mg PO BID [facility] Last Admin: 02/27/22 09:24 Dose: 650 mg Documented By: JEAN Sodium Chloride (0.9 % Sodium Chloride Flush 3 Ml Syringe) 3 ml IVFLUSH QSHIFT [facility] Last Admin: 02/27/22 08:43 Dose: Not Given Documented By: JEAN Non-Admin Reason: No Access Spironolactone (Spironolactone 25 Mg Tablet) 25 mg PO DAILY [facility]; Protocol Last Admin: 02/27/22 09:24 Dose: 25 mg Documented By: JEAN Tamsulosin HCl (Tamsulosin Hcl 0.4 Mg Capsule) 0.4 mg PO DAILY [facility] Last Admin: 02/27/22 09:24 Dose: 0.4 mg Documented By: JEAN Labs CBC & Chem 7: 02/26/22 14:36 02/26/22 14:36 Labs: Laboratory Results - last 24 hr 02/26/22 02/26/22 14:36 14:36 MCV 85.5 MCH 27.7 MCHC 32.4 RDW 17.8 H Plt Count 293 MPV 10.0 Immature Gran % (Auto) 0.6 H Neut % (Auto) 58.5 Lymph % (Auto) 18.7 L [place] % (Auto) 20.6 H Eos % (Auto) 0.5 Baso % (Auto) 1.1 Lymph # (Auto) 1.2 [place] # (Auto) 1.3 H Eos # (Auto) 0.0 Baso # (Auto) 0.1 Abs Immat Gran (auto) 0.04 H Absolute Neuts (auto) 3.6 Absolute Nucleated RBC 0.000 Nucleated RBC % (auto) 0.0 Smear Tech's Comments VERIFIED Anion Gap 16 Estim Creat Clear Calc 46.2 Estimated GFR 50 Random Glucose 135 H D Calcium 8.4 Procedures Date of Service Date of Service: 02/27/22 Progress Note: A&P Assessment and plan (1) Open wnd of buttock: Status: Acute Assessment and Plan: This is draining spontaneously Needs good hygiene perianal area I have encouraged him to get out of bed Will hold off on diverting stoma for now in view of multiple medical issues Time Spent With Patient Time: Total time spent is greater than 50% in coordination of care (as documented) at patient's floor/unit and/or counseling patient: Quality Stroke Does the patient have a stroke diagnosis?: No VTE Prior VTE?: No VTE Risk Level:: Medical - moderate - high VTE Device Contraindication: N/A - Device Ordered VTE Drug Contraindication: Treatment Not Indicated
--- NOTE | 2022-02-27 13:25 | MHC.CM.PN ---
EMR REVIEWED, PER MD ROUNDS NOT MEDICALLY CLEARED FOR DC (IV ABT AND NEED FOR A DRAINAGE SYSTEM FOR SPONTANEOUS DRAINAGE FROM BUTTOCK WOUND) [facility] FOLLOWING, CM WILL CONTINUE TO FOLLOW.
[2022-02-27] MEDS: oxyCODONE HCl Immed Release 5 MG TABLET PO (13:54)
--- NOTE | 2022-02-27 14:13 | HO.PM.IMPN ---
Subjective Subjective Date of Service: 02/28/22 Interval History: Patient awake alert sitting on chair, wants to be back in bed, no acute overnight events no fevers, no chills, continue to have fecal drainage from opening adjacent to the anus due to rectal perforation. Review of Systems [employer] no headache no dizziness CVS no chest pain no palpitation Respiratory no cough, no shortness of breath Review of Systems: Yes all other systems are reviewed and are negative Physical Exam Vital Signs: Vital Signs: Last Vital Signs Temp 98.3 F 02/27/22 11:33 Pulse 86 02/27/22 11:33 Resp 18 02/27/22 11:33 BP 92/53 L 02/27/22 11:33 Pulse Ox 98 02/27/22 11:33 O2 Del Method 02/27/22 11:33 O2 Flow Rate 3 02/24/22 07:54 BMI result Body Mass Index 26.4 Const: Other: General? resting comfortably in no acute distress.? Neck supple no JVD. CVS? regular rate rhythm, Respiratory lungs clear to auscultation, no respiratory distress, no wheeze, no rhonchi. Gastrointestinal abdomen soft, nontender, bowel sounds audible, no guarding , no rigidity. Extremities no? edema. Rectal examination open wound with fecal drainage on the perianal area with no cellulitis, no induration Neuro nonfocal, moving all 4 extremity, speech clear. Skin no rash Psych appropriate affect Objective Data Active Medications Acetaminophen (Acetaminophen 325 Mg Tablet) 650 mg PO Q6H PRN PRN Reason: Pain, Mild (Pain Scale 1-3) Last Admin: 02/21/22 12:45 Dose: 650 mg Documented By: THOMAS Benzonatate (Benzonatate 100 Mg Capsule) 100 mg PO TID PRN PRN Reason: Cough Last Admin: 02/22/22 16:03 Dose: 100 mg Documented By: BOGDAN Carvedilol (Carvedilol 6.25 Mg Tablet) 6.25 mg PO BID [facility]; Protocol Last Admin: 02/27/22 09:24 Dose: 6.25 mg Documented By: JEAN Folic Acid (Folic Acid 1 Mg Tablet) 1 mg PO DAILY [facility] Last Admin: 02/27/22 09:24 Dose: 1 mg Documented By: JEAN Meropenem 1 gm/ Sodium (Chloride) 100 mls @ 200 mls/hr IV Q8H [facility] Last Admin: 02/27/22 13:55 Dose: 200 mls/hr Documented By: BEATRICE Melatonin (Melatonin 3 Mg Tablet) 3 mg PO BEDTIME PRN PRN Reason: Insomnia Last Admin: 02/21/22 01:53 Dose: 3 mg Documented By: ALIN Morphine Sulfate (Morphine Sulfate 4 Mg/Ml Cartridge) 4 mg IVPUSH Q4H PRN; Protocol PRN Reason: Pain, Severe (Pain Scale 7-10) Last Admin: 02/25/22 05:17 Dose: 4 mg Documented By: GUILLERMO Nystatin (Nystatin Powder 15 Gm Bottle) 1 appl TOPICAL TID [facility]; Protocol Last Admin: 02/27/22 09:37 Dose: Not Given Documented By: JEAN Non-Admin Reason: Patient Refused Omeprazole (Omeprazole 20 Mg Capsule.) 20 mg PO DAILY@0630 [facility] Last Admin: 02/27/22 05:42 Dose: 20 mg Documented By: CRISTOFER Ondansetron HCl (Ondansetron Hcl 4 Mg/2 Ml Vial) 4 mg IVPUSH Q8H PRN PRN Reason: Nausea and Vomiting Last Admin: 02/25/22 17:52 Dose: 4 mg Documented By: ANNEL Oxycodone HCl (Oxycodone Hcl Immed Release 5 Mg Tablet) 5 mg PO Q6H PRN PRN Reason: Pain, Mild (Pain Scale 1-3) Last Admin: 02/27/22 13:54 Dose: 5 mg Documented By: BEATRICE Pharmacy Consult (Consult Rx Perform Med Rec) 1 each MISCELLANE ONCE PRN PRN Reason: Consult order Pharmacy Consult (Consult Rx Vancomycin Dosing) 1 each MISCELLANE DAILY PRN PRN Reason: Consult order Rivaroxaban (Rivaroxaban 15 Mg Tablet) 15 mg PO DAILY@1700 [facility] Last Admin: 02/26/22 15:57 Dose: 15 mg Documented By: ANNEL Sodium Bicarbonate (Sodium Bicarbonate 650 Mg Tablet) 650 mg PO BID [facility] Last Admin: 02/27/22 09:24 Dose: 650 mg Documented By: JEAN Sodium Chloride (0.9 % Sodium Chloride Flush 3 Ml Syringe) 3 ml IVFLUSH QSHIFT [facility] Last Admin: 02/27/22 08:43 Dose: Not Given Documented By: JEAN Non-Admin Reason: No Access Spironolactone (Spironolactone 25 Mg Tablet) 25 mg PO DAILY [facility]; Protocol Last Admin: 02/27/22 09:24 Dose: 25 mg Documented By: JEAN Tamsulosin HCl (Tamsulosin Hcl 0.4 Mg Capsule) 0.4 mg PO DAILY [facility] Last Admin: 02/27/22 09:24 Dose: 0.4 mg Documented By: JEAN Labs CBC & Chem 7: 02/26/22 14:36 02/26/22 14:36 Labs: Laboratory Results - last 24 hr 02/26/22 02/26/22 14:36 14:36 MCV 85.5 MCH 27.7 MCHC 32.4 RDW 17.8 H Plt Count 293 MPV 10.0 Immature Gran % (Auto) 0.6 H Neut % (Auto) 58.5 Lymph % (Auto) 18.7 L [place] % (Auto) 20.6 H Eos % (Auto) 0.5 Baso % (Auto) 1.1 Lymph # (Auto) 1.2 [place] # (Auto) 1.3 H Eos # (Auto) 0.0 Baso # (Auto) 0.1 Abs Immat Gran (auto) 0.04 H Absolute Neuts (auto) 3.6 Absolute Nucleated RBC 0.000 Nucleated RBC % (auto) 0.0 Smear Tech's Comments VERIFIED Anion Gap 16 Estim Creat Clear Calc 46.2 Estimated GFR 50 Random Glucose 135 H D Calcium 8.4 Assessment and Plan (1) Cellulitis of buttock: Status: Acute Plan d#9 77yo M with hx chronic HFrEF, AF s/p PPM 2019 AC on rivaroxaban, CKD3, unspecified dementia, brought in after falling in the [place] while intoxicated and developing an open anal wound with fecal drainage admitted for perirectal perforation/cellulitis # perirectal perforation/cellulitis - Surgery following, advanced diet, no surgery for now [very high risk for Surgery per Cardiology] - s/p iv vanco + pip/missael subsequently transitioned to meropenem to cover ESBL UTI- on d#7, will discuss discharge plan with General surgery # urinary discomfort/retention - bladder scan, straight cath PRN # chronic HFrEF # NSVT # AF - Cardiology consulted: Echocardiogram with LVEF of 15-20% with regional as well as global wall motion abnormalities.? Varying degrees of valvular regurgitation and some pulmonary hypertension.? There is significant dilatation of ascending aortic size at 5 cm.? Unknown coronary status.? Overall, he is at high risk for any surgical procedures for perforation of rectum.? is a definite possibility.? Hence proceed only if absolutely necessary and life saving.? Discussed with Dr. Garza.? With regard to pacemaker, this is the leadless device.? Interrogated.? Indication listed as AT/AF and sinus node dysfunction.? Battery life more than 8 years.? Normal lead parameters.? Ventricular pacing 55% the time.? Overall, normal device function. continue carvedilol, enalapril, rivaroxaban, spironolactone, furosemide # ESBL UTI [Klebsiella pneumoniae] - meropenem d#7, will discuss duration with Dr. Gao # CKD3 # metabolic acidosis, bicarb improved will DC soda bicarb # hyperK, mild - resoved after 1 dose SZC # dementia, unspecified--at baseline confusion, no behavioral disturbance # VTE ppx: rivaroxaban PT recommends STR In my clinical judgment, the patient requires continued inpatient hospitalization for the following reasons: IV ABX and potential need for surgical intervention Quality Stroke Does the patient have a stroke diagnosis?: No VTE Prior VTE?: No VTE Risk Level:: Medical - moderate - high VTE Device Contraindication: N/A - Device Ordered VTE Drug Contraindication: Treatment Not Indicated
[2022-02-27] MEDS: ondansetron HCL 4 MG/2 ML VIAL IVPUSH (14:51)
[2022-02-27] MEDS: 0.9 % Sodium Chloride Flush 3 ML SYRINGE IVFLUSH ×2 (14:59→23:17)
[2022-02-27 15:30] VITALS: BP 95/61; PULSE 79; RESP 16; TEMP 36.4; O2SAT 99
[2022-02-27] MEDS: Rivaroxaban 15 MG TABLET PO (18:02)
[2022-02-27 19:33] VITALS: BP 109/74; PULSE 99; RESP 17; TEMP 36.1; O2SAT 98
[2022-02-27 23:12] VITALS: BP 122/80; PULSE 94; RESP 16; TEMP 37.4; O2SAT 96
[2022-02-27] MEDS: Nystatin Powder 15 GM BOTTLE 1 APPL TOPICAL (23:12)
--- NOTE | 2022-02-27 23:18 | PM.IDPN ---
Subjective Subjective Date of Service: 02/27/22 Critical Care Time (minutes): 15 Comment: He still has rectal drainage of stool He has been seen by Surgery Objective Data Labs CBC & Chem 7: 02/26/22 14:36 02/26/22 14:36 Microbiology Microbiology Results: Microbiology 02/17/22 14:04 Blood - Venous Blood Culture - Final No growth after 5 days. 02/17/22 13:05 Blood - Venous Blood Culture - Final No growth after 5 days. 02/17/22 15:33 Urine clean catch - Urine bow[place] top Urine Culture - Final Klebsiella pneumoniae Physical Exam Vital Signs: Vital Signs: Last Vital Signs Temp 99.4 F 02/27/22 23:12 Pulse 94 02/27/22 23:12 Resp 16 02/27/22 23:12 BP 122/80 02/27/22 23:12 Pulse Ox 96 02/27/22 23:12 O2 Del Method 02/27/22 23:12 O2 Flow Rate 3 02/24/22 07:54 BMI result Body Mass Index 26.4 Const: General: cooperative Resp: Effort & Inspection: normal respiratory effort Cardio: Rate: regular rate Rhythm: regular rhythm GI: Inspection: Yes normal to inspection Assessment and Plan Assessment and plan (1) Traumatic perforation of rectum: Problem details: He is day 6 of Merem Would give po Augmentin for 10-14 d outpatient Status: Acute Time Spent With Patient Time: Total time spent is greater than 50% in coordination of care (as documented) at patient's floor/unit and/or counseling patient:
[2022-02-28 03:20] VITALS: BP 101/72; PULSE 88; RESP 18; TEMP 36.8; O2SAT 99
[2022-02-28] MEDS: Omeprazole 20 MG CAPSULE.DR PO (06:09)
[2022-02-28 07:40] VITALS: BP 101/67; PULSE 75; RESP 16; TEMP 37.1; O2SAT 98
[2022-02-28] MEDS: Folic Acid 1 MG TABLET PO (09:42)
[2022-02-28] MEDS: 0.9 % Sodium Chloride Flush 3 ML SYRINGE IVFLUSH ×3 (09:42→23:44)
[2022-02-28] MEDS: Spironolactone 25 MG TABLET PO (09:42)
[2022-02-28] MEDS: Nystatin Powder 15 GM BOTTLE 1 APPL TOPICAL ×3 (09:43→20:55)
[2022-02-28] MEDS: carvediloL 6.25 MG TABLET PO ×2 (09:43→20:52)
[2022-02-28] MEDS: Tamsulosin HCL 0.4 MG CAPSULE PO (09:43)
[2022-02-28] MEDS: Butalb/Acetamin/Caff 50/325/40 TABLET 1 TAB PO (10:42)
[2022-02-28] MEDS: Amoxicillin/Potassium Clav 875 MG TABLET PO ×2 (10:42→20:52)
[2022-02-28 11:23] VITALS: BP 93/72; PULSE 94; RESP 16; TEMP 38.1; O2SAT 99
--- NOTE | 2022-02-28 15:58 | P.PNIM_ITS ---
Subjective Subjective Date of Service: 02/28/22 Interval History: Complaining of headache requesting for pain medication denies perirectal pain, denies nausea vomiting no abdominal pain tolerating diet, noted to have low- grade fever 100.5 around noon , denies URI symptoms, denies urinary symptoms is on IV antibiotic for ESBL positive Klebsiella UTI Review of Systems Review of Systems: Yes all other systems are reviewed and are negative Physical Exam Vital Signs: Vital Signs: Last Vital Signs Temp 100.5 F H 02/28/22 11:23 Pulse 94 02/28/22 11:23 Resp 16 02/28/22 11:23 BP 93/72 02/28/22 11:23 Pulse Ox 99 02/28/22 11:23 O2 Del Method 02/28/22 11:23 O2 Flow Rate 3 02/24/22 07:54 BMI result Body Mass Index 26.4 Const: Other: General? resting comfortably in no acute distress.? Neck supple no JVD. CVS? regular rate rhythm, Respiratory lungs clear to auscultation, no respiratory distress, no wheeze, no rhonchi. Gastrointestinal abdomen soft, nontender, bowel sounds audible, no guarding , no rigidity. Extremities no? edema. Rectal examination open wound with fecal drainage on the perianal area with no cellulitis, no induration Neuro nonfocal, moving all 4 extremity, speech clear. Skin no rash Psych appropriate affect Objective Data Active Medications Acetaminophen (Acetaminophen 325 Mg Tablet) 650 mg PO Q6H PRN PRN Reason: Pain, Mild (Pain Scale 1-3) Last Admin: 02/21/22 12:45 Dose: 650 mg Documented By: THOMAS Amoxicillin/Clavulanate Potassium (Amoxicillin/Potassium Clav 875 Mg Tablet) 875 mg PO BID [facility] Last Admin: 02/28/22 10:42 Dose: 875 mg Documented By: KOBY Benzonatate (Benzonatate 100 Mg Capsule) 100 mg PO TID PRN PRN Reason: Cough Last Admin: 02/22/22 16:03 Dose: 100 mg Documented By: BOGDAN Carvedilol (Carvedilol 6.25 Mg Tablet) 6.25 mg PO BID [facility]; Protocol Last Admin: 02/28/22 09:43 Dose: 6.25 mg Documented By: KOBY Folic Acid (Folic Acid 1 Mg Tablet) 1 mg PO DAILY [facility] Last Admin: 02/28/22 09:42 Dose: 1 mg Documented By: KOBY Melatonin (Melatonin 3 Mg Tablet) 3 mg PO BEDTIME PRN PRN Reason: Insomnia Last Admin: 02/21/22 01:53 Dose: 3 mg Documented By: ALIN Morphine Sulfate (Morphine Sulfate 4 Mg/Ml Cartridge) 4 mg IVPUSH Q4H PRN; Protocol PRN Reason: Pain, Severe (Pain Scale 7-10) Last Admin: 02/25/22 05:17 Dose: 4 mg Documented By: GUILLERMO Nystatin (Nystatin Powder 15 Gm Bottle) 1 appl TOPICAL TID [facility]; Protocol Last Admin: 02/28/22 09:43 Dose: 1 appl Documented By: KOBY Omeprazole (Omeprazole 20 Mg Capsule.Dr) 20 mg PO DAILY@0630 [facility] Last Admin: 02/28/22 06:09 Dose: 20 mg Documented By: TAYLORJ Ondansetron HCl (Ondansetron Hcl 4 Mg/2 Ml Vial) 4 mg IVPUSH Q8H PRN PRN Reason: Nausea and Vomiting Last Admin: 02/27/22 14:51 Dose: 4 mg Documented By: JEAN Oxycodone HCl (Oxycodone Hcl Immed Release 5 Mg Tablet) 5 mg PO Q6H PRN PRN Reason: Pain, Mild (Pain Scale 1-3) Last Admin: 02/27/22 13:54 Dose: 5 mg Documented By: BEATRICE Pharmacy Consult (Consult Rx Perform Med Rec) 1 each MISCELLANE ONCE PRN PRN Reason: Consult order Rivaroxaban (Rivaroxaban 15 Mg Tablet) 15 mg PO DAILY@1700 [facility] Last Admin: 02/27/22 18:02 Dose: 15 mg Documented By: BEATRICE Sodium Chloride (0.9 % Sodium Chloride Flush 3 Ml Syringe) 3 ml IVFLUSH [facility] Last Admin: 02/28/22 09:42 Dose: 3 ml Documented By: KOBY Spironolactone (Spironolactone 25 Mg Tablet) 12.5 mg PO DAILY [facility]; Protocol Tamsulosin HCl (Tamsulosin Hcl 0.4 Mg Capsule) 0.4 mg PO DAILY [facility] Last Admin: 02/28/22 09:43 Dose: 0.4 mg Documented By: KOBY Labs CBC & Chem 7: 02/26/22 14:36 02/26/22 14:36 Assessment and Plan (1) Cellulitis of buttock: Status: Acute Plan d#9 77yo M with hx chronic HFrEF, AF s/p PPM 2019 AC on rivaroxaban, CKD3, unspecif ied dementia, brought in after falling in the [place] while intoxicated and developing an open anal wound with fecal drainage admitted for perirectal perforation/cellulitis # perirectal perforation/cellulitis - tolerating diet case discussed with general surgeon Dr. Dunn he recommend no surgery due to high risk he recommend to discharge to rehab facility - s/p iv vanco + pip/missael subsequently transitioned to meropenem to cover ESBL UTI- on d#8, spoke with heel caser to arrange for rehab bed Id recommends 14 days of by mouth Augmentin Noted to have low-grade fever will follow clinical course, for headache will give 1 dose of Fioricet # urinary discomfort/retention - bladder scan, straight cath PRN # chronic HFrEF # NSVT # AF - Cardiology consulted: Echocardiogram with LVEF of 15-20% with regional as well as global wall motion abnormalities.? Varying degrees of valvular regurgitation and some pulmonary hypertension.? There is significant dilatation of ascending aortic size at 5 cm.? Unknown coronary status.? Overall, he is at high risk for any surgical procedures for perforation of rectum.? is a definite possibility.? Hence proceed only if absolutely necessary and life saving.? Discussed with Dr. Garza.? With regard to pacemaker, this is the leadless device.? Interrogated.? Indication listed as AT/AF and sinus node dysfunction.? Battery life more than 8 years.? Normal lead parameters.? Ventricular pacing 55% the time.? Overall, normal device function. continue carvedilol, enalapril, rivaroxaban, spironolactone, furosemide # ESBL UTI [Klebsiella pneumoniae] - meropenem d#8, will discuss duration with Dr. Gao # CKD3 # metabolic acidosis, bicarb improved will DC soda bicarb # hyperK, mild - resoved after 1 dose SZC # dementia, unspecified--at baseline confusion, no behavioral disturbance # VTE ppx: rivaroxaban PT recommends STR In my clinical judgment, the patient requires continued inpatient hospitalization for the following reasons: IV ABX and potential need for surgical intervention Quality Stroke Does the patient have a stroke diagnosis?: No VTE Prior VTE?: No VTE Risk Level:: Medical - moderate - high VTE Device Contraindication: N/A - Device Ordered VTE Drug Contraindication: Treatment Not Indicated
[2022-02-28 16:00] VITALS: BP 112/79; PULSE 89; RESP 18; TEMP 37.1; O2SAT 98
[2022-02-28] MEDS: Rivaroxaban 15 MG TABLET PO (17:12)
[2022-02-28 19:47] VITALS: BP 107/71; PULSE 93; RESP 18; TEMP 36.7; O2SAT 97
[2022-03-01] VITALS (8 sets, daily range): BP systolic 94–123; BP diastolic 66–90; PULSE 74–95; RESP 18–20; TEMP 36.8–37.3; O2SAT 93–100
[2022-03-01] MEDS: Morphine Sulfate 4 MG/ML CARTRIDGE IVPUSH (00:02)
[2022-03-01] MEDS: oxyCODONE HCl Immed Release 5 MG TABLET PO ×2 (03:48→19:45)
[2022-03-01] MEDS: Omeprazole 20 MG CAPSULE.DR PO (05:52)
[2022-03-01] MEDS: Nystatin Powder 15 GM BOTTLE 1 APPL TOPICAL ×2 (07:38→14:40)
[2022-03-01] MEDS: Amoxicillin/Potassium Clav 875 MG TABLET PO ×2 (07:38→19:45)
[2022-03-01] MEDS: Tamsulosin HCL 0.4 MG CAPSULE PO (07:38)
[2022-03-01] MEDS: Folic Acid 1 MG TABLET PO (07:38)
[2022-03-01] MEDS: 0.9 % Sodium Chloride Flush 3 ML SYRINGE IVFLUSH ×2 (07:39→19:45)
[2022-03-01] MEDS: carvediloL 6.25 MG TABLET PO ×2 (07:39→19:45)
[2022-03-01] MEDS: Spironolactone 25 MG TABLET 12.5 MG PO (07:41)
[2022-03-01] MEDS: Acetaminophen 325 MG TABLET 650 MG PO ×2 (12:29→17:49)
--- NOTE | 2022-03-01 13:16 | HO.PM.IMPN ---
Subjective Subjective Date of Service: 03/01/22 Interval History: Being followed for rectal perforation patient offers no acute complaints, denies abdominal pain, no fevers no chills no headache, no dizziness tolerating diet with no nausea vomiting vitals stable had 1 episode of low-grade fever 24 hours ago Review of Systems Review of Systems: Yes all other systems are reviewed and are negative Physical Exam Vital Signs: Vital Signs: Last Vital Signs Temp 98.3 F 03/01/22 11:23 Pulse 89 03/01/22 11:23 Resp 18 03/01/22 11:23 BP 99/72 03/01/22 11:23 Pulse Ox 99 03/01/22 11:23 O2 Del Method 03/01/22 11:23 O2 Flow Rate 3 02/24/22 07:54 BMI result Body Mass Index 26.4 Const: Other: General? resting comfortably in no acute distress.? Neck supple no JVD. CVS? regular rate rhythm, Respiratory lungs clear to auscultation, no respiratory distress, no wheeze, no rhonchi. Gastrointestinal abdomen soft, nontender, bowel sounds audible, no guarding , no rigidity. Extremities no? edema. Rectal examination open wound with fecal drainage on the perianal area with no cellulitis, no induration Neuro nonfocal, moving all 4 extremity, speech clear. Skin no rash Psych appropriate affect Objective Data Active Medications Acetaminophen (Acetaminophen 325 Mg Tablet) 650 mg PO Q6H PRN PRN Reason: Pain, Mild (Pain Scale 1-3) Last Admin: 03/01/22 12:29 Dose: 650 mg Documented By: ELY Amoxicillin/Clavulanate Potassium (Amoxicillin/Potassium Clav 875 Mg Tablet) 875 mg PO BID [facility] Last Admin: 03/01/22 07:38 Dose: 875 mg Documented By: ELY Benzonatate (Benzonatate 100 Mg Capsule) 100 mg PO TID PRN PRN Reason: Cough Last Admin: 02/22/22 16:03 Dose: 100 mg Documented By: BOGDAN Carvedilol (Carvedilol 6.25 Mg Tablet) 6.25 mg PO BID [facility]; Protocol Last Admin: 03/01/22 07:39 Dose: 6.25 mg Documented By: ELY Folic Acid (Folic Acid 1 Mg Tablet) 1 mg PO DAILY [facility] Last Admin: 03/01/22 07:38 Dose: 1 mg Documented By: ELY Melatonin (Melatonin 3 Mg Tablet) 3 mg PO BEDTIME PRN PRN Reason: Insomnia Last Admin: 02/21/22 01:53 Dose: 3 mg Documented By: ALIN Nystatin (Nystatin Powder 15 Gm Bottle) 1 appl TOPICAL TID [facility]; Protocol Last Admin: 03/01/22 07:38 Dose: 1 appl Documented By: ELY Omeprazole (Omeprazole 20 Mg Capsule.) 20 mg PO DAILY@0630 [facility] Last Admin: 03/01/22 05:52 Dose: 20 mg Documented By: DANICA Ondansetron HCl (Ondansetron Hcl 4 Mg/2 Ml Vial) 4 mg IVPUSH Q8H PRN PRN Reason: Nausea and Vomiting Last Admin: 02/27/22 14:51 Dose: 4 mg Documented By: JEAN Oxycodone HCl (Oxycodone Hcl Immed Release 5 Mg Tablet) 5 mg PO Q6H PRN PRN Reason: Pain, Mild (Pain Scale 1-3) Last Admin: 03/01/22 03:48 Dose: 5 mg Documented By: DANICA Pharmacy Consult (Consult Rx Perform Med Rec) 1 each MISCELLANE ONCE PRN PRN Reason: Consult order Rivaroxaban (Rivaroxaban 15 Mg Tablet) 15 mg PO DAILY@1700 [facility] Last Admin: 02/28/22 17:12 Dose: 15 mg Documented By: KOBY Sodium Chloride (0.9 % Sodium Chloride Flush 3 Ml Syringe) 3 ml IVFLUSH QSHIFT [facility] Last Admin: 03/01/22 07:39 Dose: 3 ml Documented By: ELY Spironolactone (Spironolactone 25 Mg Tablet) 12.5 mg PO DAILY [facility]; Protocol Last Admin: 03/01/22 07:41 Dose: 12.5 mg Documented By: ELY Tamsulosin HCl (Tamsulosin Hcl 0.4 Mg Capsule) 0.4 mg PO DAILY [facility] Last Admin: 03/01/22 07:38 Dose: 0.4 mg Documented By: ELY Labs CBC & Chem 7: 02/26/22 14:36 02/26/22 14:36 Assessment and Plan (1) Cellulitis of buttock: Status: Acute Plan d#9 77yo M with hx chronic HFrEF, AF s/p PPM 2019 AC on rivaroxaban, CKD3, unspecified dementia, brought in after falling in the [place] while intoxicated and developing an open anal wound with fecal drainage admitted for perirectal perforation/cellulitis # perirectal perforation/cellulitis - tolerating diet case discussed with general surgeon Dr. Dunn he recommend no surgery due to high risk he recommend to discharge to rehab facility - s/p iv vanco + pip/missael subsequently transitioned to meropenem to cover ESBL UTI, received 8 days of meropenem, now on Augmentin for total 14 days as per ID recommendation Had 1 episode of low-grade fever, no further episode in last 24 hours headache resolved # urinary discomfort/retention - bladder scan, straight cath PRN # chronic HFrEF # NSVT # AF - Cardiology consulted: Echocardiogram with LVEF of 15-20% with regional as well as global wall motion abnormalities.? Varying degrees of valvular regurgitation and some pulmonary hypertension.? There is significant dilatation of ascending aortic size at 5 cm.? Unknown coronary status.? Overall, he is at high risk for any surgical procedures for perforation of rectum.? is a definite possibility.? Hence proceed only if absolutely necessary and life saving.? Discussed with Dr. Garza.? With regard to pacemaker, this is the leadless device.? Interrogated.? Indication listed as AT/AF and sinus node dysfunction.? Battery life more than 8 years.? Normal lead parameters.? Ventricular pacing 55% the time.? Overall, normal device function. continue carvedilol, enalapril, rivaroxaban, spironolactone, furosemide # ESBL UTI [Klebsiella pneumoniae] - treated with meropenem for 8 days # CKD3/ metabolic acidosis, bicarb improved,stopped soda bicarb # hyperK, mild - resoved after 1 dose SZC # dementia, unspecified--at baseline confusion, no behavioral disturbance # VTE ppx: rivaroxaban PT recommends STR In my clinical judgment, the patient requires continued inpatient hospitalization for the following reasons: Waiting for safe discharge to rehab Quality Stroke Does the patient have a stroke diagnosis?: No VTE Prior VTE?: No VTE Risk Level:: Medical - moderate - high VTE Device Contraindication: N/A - Device Ordered VTE Drug Contraindication: Treatment Not Indicated
--- NOTE | 2022-03-01 14:35 | MHC.CM.PN ---
bed search contiunues for pt
[2022-03-01] MEDS: Rivaroxaban 15 MG TABLET PO (17:46)
[2022-03-02] MEDS: oxyCODONE HCl Immed Release 5 MG TABLET PO ×2 (03:18→22:12)
[2022-03-02 03:46] VITALS: BP 110/76; PULSE 79; RESP 18; TEMP 36.8; O2SAT 93
[2022-03-02 07:19] VITALS: BP 99/81; PULSE 81; RESP 18; TEMP 36.9; O2SAT 97
[2022-03-02] MEDS: Spironolactone 25 MG TABLET 12.5 MG PO (09:09)
[2022-03-02] MEDS: Amoxicillin/Potassium Clav 875 MG TABLET PO ×2 (09:10→20:54)
[2022-03-02] MEDS: Tamsulosin HCL 0.4 MG CAPSULE PO (09:10)
[2022-03-02] MEDS: Omeprazole 20 MG CAPSULE.DR PO (09:10)
[2022-03-02] MEDS: carvediloL 6.25 MG TABLET PO (09:11)
[2022-03-02] MEDS: Folic Acid 1 MG TABLET PO (09:11)
[2022-03-02 12:00] VITALS: BP 110/86; PULSE 84; RESP 18; TEMP 36.7; O2SAT 99
--- NOTE | 2022-03-02 12:08 | HO.PM.IMPN ---
Subjective Subjective Date of Service: 03/02/22 Interval History: Being followed for rectal perforation , patient offers no acute complaints, tolerating diet,noted to have persistent stooling from [place] anal wound, no acute events overnight no fevers no chills, no shortness of breath no chest pain or palpitations patient remained hemodynamically stable Review of Systems Review of Systems: Yes all other systems are reviewed and are negative Physical Exam Vital Signs: Vital Signs: Last Vital Signs Temp 98.0 F 03/02/22 12:00 Pulse 84 03/02/22 12:00 Resp 18 03/02/22 12:00 BP 110/86 03/02/22 12:00 Pulse Ox 99 03/02/22 12:00 O2 Del Method 03/02/22 12:00 O2 Flow Rate 3 02/24/22 07:54 BMI result Body Mass Index 26.4 Const: Other: General? resting comfortably in no acute distress.? Neck supple no JVD. CVS? regular rate rhythm, Respiratory lungs clear to auscultation, no respiratory distress, no wheeze, no rhonchi. Gastrointestinal abdomen soft, nontender, bowel sounds audible, no guarding , no rigidity. Extremities no? edema. Rectal examination open wound with fecal drainage on the perianal area ,with no cellulitis, no induration Neuro nonfocal, moving all 4 extremity, speech clear. Skin no rash Psych appropriate affect Objective Data Active Medications Acetaminophen (Acetaminophen 325 Mg Tablet) 650 mg PO Q6H PRN PRN Reason: Pain, Mild (Pain Scale 1-3) Last Admin: 03/01/22 17:49 Dose: 650 mg Documented By: GUILLERMO Amoxicillin/Clavulanate Potassium (Amoxicillin/Potassium Clav 875 Mg Tablet) 875 mg PO BID [facility] Last Admin: 03/02/22 09:10 Dose: 875 mg Documented By: MYRIAM Benzonatate (Benzonatate 100 Mg Capsule) 100 mg PO TID PRN PRN Reason: Cough Last Admin: 02/22/22 16:03 Dose: 100 mg Documented By: BOGDAN Carvedilol (Carvedilol 6.25 Mg Tablet) 6.25 mg PO BID [facility]; Protocol Last Admin: 03/02/22 09:11 Dose: 6.25 mg Documented By: MYRIAM Folic Acid (Folic Acid 1 Mg Tablet) 1 mg PO DAILY [facility] Last Admin: 03/02/22 09:11 Dose: 1 mg Documented By: MYRIAM Melatonin (Melatonin 3 Mg Tablet) 3 mg PO BEDTIME PRN PRN Reason: Insomnia Last Admin: 02/21/22 01:53 Dose: 3 mg Documented By: ALIN Nystatin (Nystatin Powder 15 Gm Bottle) 1 appl TOPICAL TID [facility]; Protocol Last Admin: 03/02/22 09:23 Dose: Not Given Documented By: MYRIAM Non-Admin Reason: Patient Refused Omeprazole (Omeprazole 20 Mg Capsule.) 20 mg PO DAILY@0630 [facility] Last Admin: 03/02/22 09:10 Dose: 20 mg Documented By: MYRIAM Ondansetron HCl (Ondansetron Hcl 4 Mg/2 Ml Vial) 4 mg IVPUSH Q8H PRN PRN Reason: Nausea and Vomiting Last Admin: 02/27/22 14:51 Dose: 4 mg Documented By: JEAN Oxycodone HCl (Oxycodone Hcl Immed Release 5 Mg Tablet) 5 mg PO Q6H PRN PRN Reason: Pain, Mild (Pain Scale 1-3) Last Admin: 03/02/22 03:18 Dose: 5 mg Documented By: HIPOLITO Pharmacy Consult (Consult Rx Perform Med Rec) 1 each MISCELLANE ONCE PRN PRN Reason: Consult order Rivaroxaban (Rivaroxaban 15 Mg Tablet) 15 mg PO DAILY@1700 [facility] Last Admin: 03/01/22 17:46 Dose: 15 mg Documented By: GUILLERMO Sodium Chloride (0.9 % Sodium Chloride Flush 3 Ml Syringe) [facility] Last Admin: 03/02/22 07:36 Dose: Not Given Documented By: MYRIAM Non-Admin Reason: See Note Spironolactone (Spironolactone 25 Mg Tablet) 12.5 mg PO DAILY [facility]; Protocol Last Admin: 03/02/22 09:09 Dose: 12.5 mg Documented By: MYRIAM Tamsulosin HCl (Tamsulosin Hcl 0.4 Mg Capsule) 0.4 mg PO DAILY [facility] Last Admin: 03/02/22 09:10 Dose: 0.4 mg Documented By: MYRIAM Labs CBC & Chem 7: 02/26/22 14:36 02/26/22 14:36 Assessment and Plan (1) Cellulitis of buttock: Status: Acute Plan d#9 77yo M with hx chronic HFrEF, AF s/p PPM 2019 AC on rivaroxaban, CKD3, unspecified dementia, brought in after falling [place] the [place] while intoxicated and developing an open anal wound with fecal drainage admitted for perirectal perforation/cellulitis # perirectal perforation/cellulitis - tolerating diet case discussed with general surgeon Dr. Dunn he recommend no surgery due to high risk he recommend to discharge to rehab facility - s/p iv vanco + pip/missael subsequently transitioned to meropenem to cover ESBL UTI, received 8 days of meropenem, now on Augmentin day3/14 as per ID recommendation Had 1 episode of low-grade fever, no further episode in last 24 hours headache resolved # urinary discomfort/retention - bladder scan, straight cath PRN # chronic HFrEF # NSVT # AF - Cardiology consulted: Echocardiogram with LVEF of 15-20% with regional as well as global wall motion abnormalities.? Varying degrees of valvular regurgitation and some pulmonary hypertension.? There is significant dilatation of ascending aortic size at 5 cm.? Unknown coronary status.? Overall, he is at high risk for any surgical procedures for perforation of rectum.? is a definite possibility.? Hence proceed only if absolutely necessary and life saving.? Discussed with Dr. Garza.? With regard to pacemaker, this is the leadless device.? Interrogated.? Indication listed as AT/AF and sinus node dysfunction.? Battery life more than 8 years.? Normal lead parameters.? Ventricular pacing 55% the time.? Overall, normal device function. continue carvedilol, enalapril, rivaroxaban, spironolactone, furosemide # ESBL UTI [Klebsiella pneumoniae] - treated with meropenem for 8 days # CKD3/ metabolic acidosis, bicarb improved,stopped soda bicarb # hyperK, mild - resoved after 1 dose SZC # dementia, unspecified--at baseline confusion, no behavioral disturbance # VTE ppx: rivaroxaban PT recommends STR In my clinical judgment, the patient requires continued inpatient hospitalization for the following reasons: Waiting for safe discharge to rehab Quality Stroke Does the patient have a stroke diagnosis?: No VTE Prior VTE?: No VTE Risk Level:: Medical - moderate - high VTE Device Contraindication: N/A - Device Ordered VTE Drug Contraindication: Treatment Not Indicated
--- NOTE | 2022-03-02 13:04 | P.PNGS_ITS ---
Subjective Subjective Date of Service: 03/02/22 Interval history: No new complaints As per nursing staff - he does not get out of bed much Physical Exam Vital Signs: Vital Signs: Last Vital Signs Temp 98.0 F 03/02/22 12:00 Pulse 84 03/02/22 12:00 Resp 18 03/02/22 12:00 BP 110/86 03/02/22 12:00 Pulse Ox 99 03/02/22 12:00 O2 Del Method 03/02/22 12:00 O2 Flow Rate 3 02/24/22 07:54 BMI result Body Mass Index 26.4 Const: Other: Conversant General: comfortable and no acute distress Resp: Effort & Inspection: normal respiratory effort Cardio: Rhythm: abnormal rhythm GI: Other: Soft, rectal exam shows open wound perianal area Objective Data Active Medications Acetaminophen (Acetaminophen 325 Mg Tablet) 650 mg PO Q6H PRN PRN Reason: Pain, Mild (Pain Scale 1-3) Last Admin: 03/01/22 17:49 Dose: 650 mg Documented By: GUILLERMO Amoxicillin/Clavulanate Potassium (Amoxicillin/Potassium Clav 875 Mg Tablet) 875 mg PO BID [facility] Last Admin: 03/02/22 09:10 Dose: 875 mg Documented By: MYRIAM Benzonatate (Benzonatate 100 Mg Capsule) 100 mg PO TID PRN PRN Reason: Cough Last Admin: 02/22/22 16:03 Dose: 100 mg Documented By: BOGDAN Carvedilol (Carvedilol 6.25 Mg Tablet) 6.25 mg PO BID [facility]; Protocol Last Admin: 03/02/22 09:11 Dose: 6.25 mg Documented By: MYRIAM Folic Acid (Folic Acid 1 Mg Tablet) 1 mg PO DAILY [facility] Last Admin: 03/02/22 09:11 Dose: 1 mg Documented By: MYRIAM Melatonin (Melatonin 3 Mg Tablet) 3 mg PO BEDTIME PRN PRN Reason: Insomnia Last Admin: 02/21/22 01:53 Dose: 3 mg Documented By: ALIN Nystatin (Nystatin Powder 15 Gm Bottle) 1 appl TOPICAL TID [facility]; Protocol Last Admin: 03/02/22 09:23 Dose: Not Given Documented By: MYRIAM Non-Admin Reason: Patient Refused Omeprazole (Omeprazole 20 Mg Capsule.) 20 mg PO DAILY@0630 [facility] Last Admin: 03/02/22 09:10 Dose: 20 mg Documented By: MYRIAM Ondansetron HCl (Ondansetron Hcl 4 Mg/2 Ml Vial) 4 mg IVPUSH Q8H PRN PRN Reason: Nausea and Vomiting Last Admin: 02/27/22 14:51 Dose: 4 mg Documented By: JEAN Oxycodone HCl (Oxycodone Hcl Immed Release 5 Mg Tablet) 5 mg PO Q6H PRN PRN Reason: Pain, Mild (Pain Scale 1-3) Last Admin: 03/02/22 03:18 Dose: 5 mg Documented By: HIPOLITO Pharmacy Consult (Consult Rx Perform Med Rec) 1 each MISCELLANE ONCE PRN PRN Reason: Consult order Rivaroxaban (Rivaroxaban 15 Mg Tablet) 15 mg PO DAILY@1700 [facility] Last Admin: 03/01/22 17:46 Dose: 15 mg Documented By: GUILLERMO Sodium Chloride (0.9 % Sodium Chloride Flush 3 Ml Syringe) 3 ml IVFLUSH QSHIFT [facility] Last Admin: 03/02/22 07:36 Dose: Not Given Documented By: MYRIAM Non-Admin Reason: See Note Spironolactone (Spironolactone 25 Mg Tablet) 12.5 mg PO DAILY [facility]; Protocol Last Admin: 03/02/22 09:09 Dose: 12.5 mg Documented By: MYRIAM Tamsulosin HCl (Tamsulosin Hcl 0.4 Mg Capsule) 0.4 mg PO DAILY [facility] Last Admin: 03/02/22 09:10 Dose: 0.4 mg Documented By: MYRIAM Labs CBC & Chem 7: 02/26/22 14:36 02/26/22 14:36 Procedures Date of Service Date of Service: 03/02/22 Progress Note: A&P Assessment and plan (1) Traumatic perforation of rectum: Status: Acute Assessment and Plan: Has a fistulous tract Would recommend good perianal hygiene for now No obvious pus or induration Had a reported ejection fraction of 10% Time Spent With Patient Time: Total time spent is greater than 50% in coordination of care (as documented) at patient's floor/unit and/or counseling patient: Quality Stroke Does the patient have a stroke diagnosis?: No VTE Prior VTE?: No VTE Risk Level:: Medical - moderate - high VTE Device Contraindication: N/A - Device Ordered VTE Drug Contraindication: Treatment Not Indicated
[2022-03-02 15:28] VITALS: BP 113/72; PULSE 77; RESP 18; TEMP 37; O2SAT 97
[2022-03-02] MEDS: Rivaroxaban 15 MG TABLET PO (15:53)
--- NOTE | 2022-03-02 17:31 | PC.NURSE ---
Pt refusing IV access, MD informed. Isolation precautions maintained. [place] hygiene performed. pt bladder scanned for 109cc to assess residual and retention status d/t hx of being str cathed and retaining. Pt calm and compliant with care.
[2022-03-02] MEDS: Nystatin Powder 15 GM BOTTLE 1 APPL TOPICAL (17:37)
[2022-03-02 19:16] VITALS: BP 93/63; PULSE 84; RESP 20; TEMP 36.9; O2SAT 98
[2022-03-02] MEDS: Metoclopramide HCl 5 MG TABLET PO (19:28)
[2022-03-02] MEDS: LORazepam 1 MG TABLET PO (19:28)
[2022-03-02] MEDS: Melatonin 3 MG TABLET PO (22:12)
[2022-03-02 23:30] VITALS: BP 126/74; PULSE 70; RESP 20; TEMP 36.9; O2SAT 95
[2022-03-03 04:00] VITALS: BP 114/85; PULSE 97; RESP 20; O2SAT 97
[2022-03-03] MEDS: Omeprazole 20 MG CAPSULE.DR PO (05:43)
[2022-03-03 07:18] VITALS: BP 103/79; PULSE 82; RESP 20; TEMP 36; O2SAT 100
[2022-03-03] MEDS: carvediloL 6.25 MG TABLET PO (09:49)
[2022-03-03] MEDS: Spironolactone 25 MG TABLET 12.5 MG PO (09:49)
[2022-03-03] MEDS: Amoxicillin/Potassium Clav 875 MG TABLET PO (09:50)
[2022-03-03] MEDS: Folic Acid 1 MG TABLET PO (09:50)
[2022-03-03] MEDS: Nystatin Powder 15 GM BOTTLE 1 APPL TOPICAL ×2 (09:50→14:57)
[2022-03-03] MEDS: Tamsulosin HCL 0.4 MG CAPSULE PO (09:50)
[2022-03-03 09:57] VITALS: BP 110/80
[2022-03-03 11:35] VITALS: BP 114/78; PULSE 91; RESP 20; TEMP 37.4; O2SAT 98
--- NOTE | 2022-03-03 12:31 | MHC.CM.PN ---
Addendum entered by Patricia Beatty 03/03/22 14:04: The facility was asked if they could offer a bed under retirement, or in [facility]. PT note was sent. Patient confused, not following commands. Original Note: Patient is ready to discharge today. He has one facility that is interested in him, [facility]. A clinical update has been sent to the facility. Waiting to hear back re bed availability.
--- NOTE | 2022-03-03 13:36 | HO.PM.IMPN ---
Subjective Subjective Date of Service: 03/03/22 Interval History: Remains pleasantly confused, at times answer questions appropriately, noted to have intermittent hiccups in last several days, no hiccups this morning tolerating diet with no nausea vomiting, continue to have bowel movements, patient remains hemodynamically stable, temp 99.4 degrees this morning Review of Systems [employer] no headache no dizziness CVS no chest pain Respiratory no shortness of breath Review of Systems: Yes all other systems are reviewed and are negative Physical Exam Vital Signs: Vital Signs: Last Vital Signs Temp 99.4 F 03/03/22 11:35 Pulse 91 03/03/22 11:35 Resp 20 03/03/22 11:35 BP 114/78 03/03/22 11:35 Pulse Ox 98 03/03/22 11:35 O2 Del Method 03/03/22 07:18 O2 Flow Rate 3 02/24/22 07:54 BMI result Body Mass Index 26.4 Const: Other: General? resting comfortably in no acute distress.? Neck supple no JVD. CVS? regular rate rhythm, Respiratory lungs clear to auscultation, no respiratory distress, no wheeze, no rhonchi. Gastrointestinal abdomen soft, nontender, bowel sounds audible, no guarding , no rigidity. Extremities no? edema. Rectal examination open wound with fecal drainage on the perianal area ,with no cellulitis, no induration Neuro nonfocal, moving all 4 extremity, speech clear. Skin no rash Psych appropriate affect Objective Data Active Medications Acetaminophen (Acetaminophen 325 Mg Tablet) 650 mg PO Q6H PRN PRN Reason: Pain, Mild (Pain Scale 1-3) Last Admin: 03/01/22 17:49 Dose: 650 mg Documented By: GUILLERMO Amoxicillin/Clavulanate Potassium (Amoxicillin/Potassium Clav 875 Mg Tablet) 875 mg PO BID [facility] Last Admin: 03/03/22 09:50 Dose: 875 mg Documented By: ANNEL Benzonatate (Benzonatate 100 Mg Capsule) 100 mg PO TID PRN PRN Reason: Cough Last Admin: 02/22/22 16:03 Dose: 100 mg Documented By: BOGDAN Carvedilol (Carvedilol 6.25 Mg Tablet) 6.25 mg PO BID [facility]; Protocol Last Admin: 03/03/22 09:49 Dose: 6.25 mg Documented By: ANNEL Folic Acid (Folic Acid 1 Mg Tablet) 1 mg PO DAILY [facility] Last Admin: 03/03/22 09:50 Dose: 1 mg Documented By: ANNEL Melatonin (Melatonin 3 Mg Tablet) 3 mg PO BEDTIME PRN PRN Reason: Insomnia Last Admin: 03/02/22 22:12 Dose: 3 mg Documented By: HIPOLITO Nystatin (Nystatin Powder 15 Gm Bottle) 1 appl TOPICAL TID [facility]; Protocol Last Admin: 03/03/22 09:50 Dose: 1 appl Documented By: ANNEL Omeprazole (Omeprazole 20 Mg Capsule.Dr) 20 mg PO DAILY@0630 [facility] Last Admin: 03/03/22 05:43 Dose: 20 mg Documented By: HIPOLITO Ondansetron HCl (Ondansetron Hcl 4 Mg/2 Ml Vial) 4 mg IVPUSH Q8H PRN PRN Reason: Nausea and Vomiting Last Admin: 02/27/22 14:51 Dose: 4 mg Documented By: JEAN Oxycodone HCl (Oxycodone Hcl Immed Release 5 Mg Tablet) 5 mg PO Q6H PRN PRN Reason: Pain, Mild (Pain Scale 1-3) Last Admin: 03/02/22 22:12 Dose: 5 mg Documented By: HIPOLITO Pharmacy Consult (Consult Rx Perform Med Rec) 1 each MISCELLANE ONCE PRN PRN Reason: Consult order Rivaroxaban (Rivaroxaban 15 Mg Tablet) 15 mg PO DAILY@1700 [facility] Last Admin: 03/02/22 15:53 Dose: 15 mg Documented By: JEAN Sodium Chloride (0.9 % Sodium Chloride Flush 3 Ml Syringe) [facility] Last Admin: 03/03/22 09:51 Dose: Not Given Documented By: ANNEL Non-Admin Reason: No Access Spironolactone (Spironolactone 25 Mg Tablet) 12.5 mg PO DAILY [facility]; Protocol Last Admin: 03/03/22 09:49 Dose: 12.5 mg Documented By: ANNEL Tamsulosin HCl (Tamsulosin Hcl 0.4 Mg Capsule) 0.4 mg PO DAILY [facility] Last Admin: 03/03/22 09:50 Dose: 0.4 mg Documented By: ANNEL Labs CBC & Chem 7: 02/26/22 14:36 02/26/22 14:36 Assessment and Plan (1) Cellulitis of buttock: Status: Acute Plan 77yo M with hx chronic HFrEF, AF s/p PPM 2019 AC on rivaroxaban, CKD3, unspecified dementia, brought in after falling in the [place] while intoxicated and developing an open anal wound with fecal drainage admitted for perirectal perforation/cellulitis # perirectal perforation/cellulitis - tolerating diet case discussed with general surgeon Dr. Dunn he recommend no surgery due to high risk he recommend to discharge to rehab facility - s/p iv vanco + pip/missael subsequently transitioned to meropenem to cover ESBL UTI, received 8 days of meropenem, now on Augmentin day as per ID recommendation # intermittent hiccups of several day duration, patient on Prilosec at baseline , will give baclofen 5mg tid x 5 days and reasses # urinary discomfort/retention - bladder scan, straight cath PRN # chronic HFrEF/NSVT/ AF - Cardiology consulted: Echocardiogram with LVEF of 15-20% with regional as well as global wall motion abnormalities.? Varying degrees of valvular regurgitation and some pulmonary hypertension.? There is significant dilatation of ascending aortic size at 5 cm.? Unknown coronary status.? Overall, he is at high risk for any surgical procedures for perforation of rectum.? is a definite possibility.? Hence proceed only if absolutely necessary and life saving.? With regard to pacemaker, this is the leadless device.? Interrogated.? Indication listed as AT/AF and sinus node dysfunction.? Battery life more than 8 years.? Normal lead parameters.? Ventricular pacing 55% the time.? Overall, normal device function. Due to multiple cardiac complications surgeon declined surgery Patient remains hemodynamically stable with no chest pain no shortness of breath, continue carvedilol, rivaroxaban, spironolactone, Lasix and enalapril discontinued due to low blood pressure sick # ESBL UTI [Klebsiella pneumoniae] - treated with meropenem for 8 days # CKD3/ metabolic acidosis, bicarb improved,stopped soda bicarb # hyperK, mild - resoved after 1 dose SZC # dementia, unspecified--at baseline confusion, no behavioral disturbance # VTE ppx: rivaroxaban PT recommends STR In my clinical judgment, the patient requires continued inpatient hospitalization for the following reasons: Waiting for safe discharge to rehab Quality Stroke Does the patient have a stroke diagnosis?: No VTE Prior VTE?: No VTE Risk Level:: Medical - moderate - high VTE Device Contraindication: N/A - Device Ordered VTE Drug Contraindication: Treatment Not Indicated
[2022-03-03] MEDS: Baclofen 10 MG TABLET 5 MG PO (14:56)
[2022-03-03 15:27] VITALS: BP 120/68; PULSE 91; RESP 17; TEMP 37.1; O2SAT 96
[2022-03-03] MEDS: oxyCODONE HCl Immed Release 5 MG TABLET PO (16:45)
[2022-03-03] MEDS: Rivaroxaban 15 MG TABLET PO (16:45)
[2022-03-03 20:00] VITALS: BP 114/74; PULSE 90; RESP 17; TEMP 36.6; O2SAT 97
[2022-03-04 03:23] VITALS: BP 131/56; PULSE 68; RESP 19; TEMP 37
[2022-03-04] MEDS: Omeprazole 20 MG CAPSULE.DR PO (06:14)
[2022-03-04] MEDS: oxyCODONE HCl Immed Release 5 MG TABLET PO ×2 (06:16→17:41)
[2022-03-04 08:00] VITALS: BP 132/94; PULSE 108; RESP 19; TEMP 36.6; O2SAT 97
[2022-03-04] MEDS: Folic Acid 1 MG TABLET PO (09:09)
[2022-03-04] MEDS: Spironolactone 25 MG TABLET 12.5 MG PO (09:09)
[2022-03-04] MEDS: Baclofen 10 MG TABLET 5 MG PO ×3 (09:09→19:42)
[2022-03-04] MEDS: carvediloL 6.25 MG TABLET PO ×2 (09:09→19:43)
[2022-03-04] MEDS: Amoxicillin/Potassium Clav 875 MG TABLET PO ×2 (09:09→19:42)
[2022-03-04] MEDS: Tamsulosin HCL 0.4 MG CAPSULE PO (09:09)
[2022-03-04] MEDS: Nystatin Powder 15 GM BOTTLE 1 APPL TOPICAL ×3 (09:10→22:47)
[2022-03-04 12:00] VITALS: BP 101/68; PULSE 63; RESP 18; TEMP 37; O2SAT 97
--- NOTE | 2022-03-04 12:31 | P.PNIM_ITS ---
Subjective Subjective Date of Service: 03/04/22 Review of Systems pt seen and examined at bedside. he is getting cleaned by staff. reports feeling well. he is awake, alert. he has no acute complaints. no overnight events. no fevers or chills. denies any chest pain, no abd pain, no diarrhea or constipation, no urinary symptoms. Constitutional Constitutional: Reports no additional constitutional complaints Physical Exam Vital Signs: Vital Signs: Last Vital Signs Temp 98.6 F 03/04/22 12:00 Pulse 63 03/04/22 12:00 Resp 18 03/04/22 12:00 BP 101/68 03/04/22 12:00 Pulse Ox 97 03/04/22 12:00 O2 Del Method 03/04/22 12:00 O2 Flow Rate 3 02/24/22 07:54 BMI result Body Mass Index 26.4 Const: Other: pt awake, alert,confused but oriented to self. Resp: Other: no resp distress lungs clear to auscultation GI: Other: abdomen is soft, nontender, no rebound or guarding Extrem: Other: no lower extremity edema Objective Data Active Medications Acetaminophen (Acetaminophen 325 Mg Tablet) 650 mg PO Q6H PRN PRN Reason: Pain, Mild (Pain Scale 1-3) Last Admin: 03/01/22 17:49 Dose: 650 mg Documented By: GUILLERMO Amoxicillin/Clavulanate Potassium (Amoxicillin/Potassium Clav 875 Mg Tablet) 875 mg PO BID [facility] Last Admin: 03/04/22 09:09 Dose: 875 mg Documented By: SIRI Baclofen (Baclofen 10 Mg Tablet) 5 mg PO TID [facility] Stop: 03/08/22 14:59 Last Admin: 03/04/22 09:09 Dose: 5 mg Documented By: SIRI Benzonatate (Benzonatate 100 Mg Capsule) 100 mg PO TID PRN PRN Reason: Cough Last Admin: 02/22/22 16:03 Dose: 100 mg Documented By: BOGDAN Carvedilol (Carvedilol 6.25 Mg Tablet) 6.25 mg PO BID [facility]; Protocol Last Admin: 03/04/22 09:09 Dose: 6.25 mg Documented By: SIRI Folic Acid (Folic Acid 1 Mg Tablet) 1 mg PO DAILY [facility] Last Admin: 03/04/22 09:09 Dose: 1 mg Documented By: SIRI Melatonin (Melatonin 3 Mg Tablet) 3 mg PO BEDTIME PRN PRN Reason: Insomnia Last Admin: 03/02/22 22:12 Dose: 3 mg Documented By: HIPOLITO Nystatin (Nystatin Powder 15 Gm Bottle) 1 appl TOPICAL TID [facility]; Protocol Last Admin: 03/04/22 09:10 Dose: 1 appl Documented By: SIRI Omeprazole (Omeprazole 20 Mg Capsule.Dr) 20 mg PO DAILY@0630 [facility] Last Admin: 03/04/22 06:14 Dose: 20 mg Documented By: CRISTOFER Ondansetron HCl (Ondansetron Hcl 4 Mg/2 Ml Vial) 4 mg IVPUSH Q8H PRN PRN Reason: Nausea and Vomiting Last Admin: 02/27/22 14:51 Dose: 4 mg Documented By: JEAN Oxycodone HCl (Oxycodone Hcl Immed Release 5 Mg Tablet) 5 mg PO Q6H PRN PRN Reason: Pain, Mild (Pain Scale 1-3) Last Admin: 03/04/22 06:16 Dose: 5 mg Documented By: CRISTOFER Pharmacy Consult (Consult Rx Perform Med Rec) 1 each MISCELLANE ONCE PRN PRN Reason: Consult order Rivaroxaban (Rivaroxaban 15 Mg Tablet) 15 mg PO DAILY@1700 [facility] Last Admin: 03/03/22 16:45 Dose: 15 mg Documented By: RIOSCDUNCAN Sodium Chloride (0.9 % Sodium Chloride Flush 3 Ml Syringe) 3 ml IVFLUSH QSHIFT [facility] Last Admin: 03/04/22 09:08 Dose: Not Given Documented By: SIRI Non-Admin Reason: No Access Spironolactone (Spironolactone 25 Mg Tablet) 12.5 mg PO DAILY [facility]; Protocol Last Admin: 03/04/22 09:09 Dose: 12.5 mg Documented By: SIRI Tamsulosin HCl (Tamsulosin Hcl 0.4 Mg Capsule) 0.4 mg PO DAILY [facility] Last Admin: 03/04/22 09:09 Dose: 0.4 mg Documented By: SIRI Labs CBC & Chem 7: 02/26/22 14:36 02/26/22 14:36 Assessment and Plan (1) Traumatic perforation of rectum: Status: Acute (2) Perirectal cellulitis: Status: Acute (3) Urinary tract infection due to ESBL Klebsiella: Status: Acute (4) Preoperative cardiovascular examination: Status: Acute Plan 77yo M with hx chronic HFrEF, AF s/p PPM 2019 AC on rivaroxaban, CKD3, unspecified dementia, brought in after [place] the [place] while [place] and developing an open anal wound with fecal drainage admitted for perirectal perforation/cellulitis # perirectal perforation/cellulitis - tolerating diet case discussed with general surgeon Dr. Dunn he recommend no surgery due to high risk - recommend to discharge to rehab facility - s/p iv vanco + pip/missael subsequently transitioned to meropenem to cover ESBL UTI, received 8 days of meropenem, now on Augmentin day /14 as per ID recommendation # intermittent hiccups of several day duration, patient on Prilosec at baseline , will give baclofen 5mg tid x 5 days and reasses - improved # urinary discomfort/retention - prn bladder scan, straight cath PRN # chronic HFrEF/NSVT/ AF - compensated CHF with no exacerbation at time time - Cardiology consulted - Echo showed EF of 15-20% There is significant dilatation of ascending aortic size at 5 cm.? Unknown coronary status.? - Lasix and enalpril dcd due to hypotension, reassess prior to discharge - continue carvedilol, rivaroxaban, spironolactone, # Perioperative cardiac exam - Overall, he is at high risk for any surgical procedures for perforation of rectum.? is a definite possibility.? Hence proceed only if absolutely necessary and life saving.? With regard to pacemaker, this is the leadless device.? Interrogated.? Indication listed as AT/AF and sinus node dysfunction.? Battery life more than 8 years.? Normal lead parameters.? Ventricular pacing 55% the time.? Overall, normal device function. - Due to multiple cardiac complications surgeon declined surgery - monitor clinically # ESBL UTI [Klebsiella pneumoniae] - treated with meropenem for 8 days # CKD3/ metabolic acidosis, - bicarb improved,stopped soda bicarb # hyperK, mild - resoved after 1 dose SZC - follow bmp # dementia, unspecified- -at baseline confusion, no behavioral disturbance # VTE ppx: rivaroxaban PT recommends STR In my clinical judgment, the patient requires continued inpatient h ospitalization for the following reasons: Waiting for safe discharge to rehab awaiting authorization Quality Stroke Does the patient have a stroke diagnosis?: No VTE Prior VTE?: No VTE Risk Level:: Medical - moderate - high VTE Device Contraindication: N/A - Device Ordered VTE Drug Contraindication: Treatment Not Indicated
[2022-03-04] MEDS: Rivaroxaban 15 MG TABLET PO (15:52)
[2022-03-04 16:00] VITALS: BP 118/82; PULSE 80; RESP 16; TEMP 36.8; O2SAT 98
--- NOTE | 2022-03-04 16:08 | MHC.CM.PN ---
BED SEARCH CONTINUES FOR [facility]. REFERRAL TO [facility] SENT KENNY WAS FOLLOWING WELL. AWAITING RESPONSE
[2022-03-04 20:00] VITALS: BP 115/73; PULSE 65; RESP 17; TEMP 36.4; O2SAT 98
[2022-03-05] VITALS (8 sets, daily range): BP systolic 95–149; BP diastolic 63–98; PULSE 73–93; RESP 16–20; TEMP 35.9–36.8; O2SAT 96–99
[2022-03-05] MEDS: Omeprazole 20 MG CAPSULE.DR PO (05:49)
[2022-03-05] MEDS: Baclofen 10 MG TABLET 5 MG PO ×2 (07:50→20:54)
[2022-03-05] MEDS: Tamsulosin HCL 0.4 MG CAPSULE PO (07:51)
[2022-03-05] MEDS: Amoxicillin/Potassium Clav 875 MG TABLET PO ×2 (07:51→20:54)
[2022-03-05] MEDS: Spironolactone 25 MG TABLET 12.5 MG PO (07:51)
[2022-03-05] MEDS: carvediloL 6.25 MG TABLET PO ×2 (07:51→20:54)
[2022-03-05] MEDS: Folic Acid 1 MG TABLET PO (07:51)
[2022-03-05] MEDS: Nystatin Powder 15 GM BOTTLE 1 APPL TOPICAL ×3 (10:30→20:55)
--- NOTE | 2022-03-05 10:32 | HO.PM.IMPN ---
Subjective Subjective Date of Service: 03/05/22 Interval History: patient seen and examined at bedside. He is more sleepy this morning but wakes up to verbal stimuli. Has now acute complaints. According to the nurse there are no overnight events. Review of Systems Review of Systems: Yes Unobtainable due to mental condition Physical Exam Vital Signs: Vital Signs: Last Vital Signs Temp 98.2 F 03/05/22 08:00 Pulse 93 03/05/22 08:00 Resp 19 03/05/22 08:00 BP 127/98 H 03/05/22 08:00 Pulse Ox 97 03/05/22 08:00 O2 Del Method 03/05/22 08:00 O2 Flow Rate 3 02/24/22 07:54 BMI result Body Mass Index 26.4 Const: Other: pt sleepy but arousable Resp: Other: lungs clear to auscultation bilaterally : Other: abdomen is soft, nontender Neuro: Other: patient somnolent but arousable, unable to assess neuro exam Extrem: Other: no lower extremity edema Objective Data Active Medications Acetaminophen (Acetaminophen 325 Mg Tablet) 650 mg PO Q6H PRN PRN Reason: Pain, Mild (Pain Scale 1-3) Last Admin: 03/01/22 17:49 Dose: 650 mg Documented By: GUILLERMO Amoxicillin/Clavulanate Potassium (Amoxicillin/Potassium Clav 875 Mg Tablet) 875 mg PO BID [facility] Last Admin: 03/05/22 07:51 Dose: 875 mg Documented By: BETY Baclofen (Baclofen 10 Mg Tablet) 5 mg PO TID [facility] Stop: 03/08/22 14:59 Last Admin: 03/05/22 07:50 Dose: 5 mg Documented By: BETY Benzonatate (Benzonatate 100 Mg Capsule) 100 mg PO TID PRN PRN Reason: Cough Last Admin: 02/22/22 16:03 Dose: 100 mg Documented By: BOGDAN Carvedilol (Carvedilol 6.25 Mg Tablet) 6.25 mg PO BID [facility]; Protocol Last Admin: 03/05/22 07:51 Dose: 6.25 mg Documented By: BETY Folic Acid (Folic Acid 1 Mg Tablet) 1 mg PO DAILY [facility] Last Admin: 03/05/22 07:51 Dose: 1 mg Documented By: BETY Melatonin (Melatonin 3 Mg Tablet) 3 mg PO BEDTIME PRN PRN Reason: Insomnia Last Admin: 03/02/22 22:12 Dose: 3 mg Documented By: HIPOLITO Nystatin (Nystatin Powder 15 Gm Bottle) 1 appl TOPICAL TID [facility]; Protocol Last Admin: 03/04/22 22:47 Dose: 1 appl Documented By: TAYLORJ Omeprazole (Omeprazole 20 Mg Capsule.Dr) 20 mg PO DAILY@0630 [facility] Last Admin: 03/05/22 05:49 Dose: 20 mg Documented By: ILAN Ondansetron HCl (Ondansetron Hcl 4 Mg/2 Ml Vial) 4 mg IVPUSH Q8H PRN PRN Reason: Nausea and Vomiting Last Admin: 02/27/22 14:51 Dose: 4 mg Documented By: JEAN Pharmacy Consult (Consult Rx Perform Med Rec) 1 each MISCELLANE ONCE PRN PRN Reason: Consult order Rivaroxaban (Rivaroxaban 15 Mg Tablet) 15 mg PO DAILY@1700 [facility] Last Admin: 03/04/22 15:52 Dose: 15 mg Documented By: SIRI Sodium Chloride (0.9 % Sodium Chloride Flush 3 Ml Syringe) 3 ml IVFLUSH QSHIFT [facility] Last Admin: 03/05/22 07:52 Dose: Not Given Documented By: BETY Non-Admin Reason: No Access Spironolactone (Spironolactone 25 Mg Tablet) 12.5 mg PO DAILY [facility]; Protocol Last Admin: 03/05/22 07:51 Dose: 12.5 mg Documented By: BETY Tamsulosin HCl (Tamsulosin Hcl 0.4 Mg Capsule) 0.4 mg PO DAILY [facility] Last Admin: 03/05/22 07:51 Dose: 0.4 mg Documented By: BETY Labs CBC & Chem 7: 02/26/22 14:36 02/26/22 14:36 Assessment and Plan (1) Urinary tract infection due to ESBL Klebsiella: Status: Acute (2) Perirectal cellulitis: Status: Acute (3) Preoperative cardiovascular examination: Status: Acute (4) Traumatic perforation of rectum: Status: Acute Plan 77yo M with hx chronic HFrEF, AF s/p PPM 2019 AC on rivaroxaban, CKD3, unspecified dementia, brought in after falling in the [place] while intoxicated and developing an open anal wound with fecal drainage admitted for perirectal perforation/cellulitis # perirectal perforation/cellulitis - improved - tolerating diet - case discussed with general surgeon, recommended no surgery due to high risk - pending discharge to rehab facility - s/p iv vanco + pip/missael subsequently transitioned to meropenem to cover ESBL UTI, received 8 days of meropenem, now on Augmentin day as per ID recommendation # intermittent hiccups of several day duration, - patient on Prilosec at baseline - received baclofan - now resolved # urinary discomfort/retention - prn bladder scan, straight cath PRN # chronic HFrEF/NSVT/ AF - compensated CHF with no exacerbation at time time - Cardiology consulted - Echo showed EF of 15-20% There is significant dilatation of ascending aortic size at 5 cm.? Unknown coronary status.? - Lasix and enalpril dcd due to hypotension, reassess prior to discharge - continue carvedilol, rivaroxaban, spironolactone, # Perioperative cardiac exam - Overall, he is at high risk for any surgical procedures for perforation of rectum.? is a definite possibility.? Hence proceed only if absolutely necessary and life saving.? With regard to pacemaker, this is the leadless device.? Interrogated.? Indication listed as AT/AF and sinus node dysfunction.? Battery life more than 8 years.? Normal lead parameters.? Ventricular pacing 55% the time.? Overall, normal device function. - Due to multiple cardiac complications surgeon declined surgery - monitor clinically # ESBL UTI [Klebsiella pneumoniae] - treated with meropenem for 8 days # CKD3/ metabolic acidosis, - resolved, received Sodium bicarb # hyperK, mild - resoved after 1 dose SZC - follow bmp # dementia, unspecified- -at baseline confusion, no behavioral disturbance # VTE ppx: rivaroxaban PT recommends STR In my clinical judgment, the patient requires continued inpatient hospitalization for the following reasons: Waiting for safe discharge to rehab awaiting authorization Quality Stroke Does the patient have a stroke diagnosis?: No VTE Prior VTE?: No VTE Risk Level:: Medical - moderate - high VTE Device Contraindication: N/A - Device Ordered VTE Drug Contraindication: Treatment Not Indicated
--- NOTE | 2022-03-05 10:59 | PM.PNGS ---
Subjective Subjective Date of Service: 03/10/22 Interval history: says he is okay has dementia - answer some questions does not get out of bed poor level of function Physical Exam Vital Signs: Vital Signs: Last Vital Signs Temp 98.2 F 03/05/22 08:00 Pulse 93 03/05/22 08:00 Resp 19 03/05/22 08:00 BP 127/98 H 03/05/22 08:00 Pulse Ox 97 03/05/22 08:00 O2 Del Method 03/05/22 08:00 O2 Flow Rate 3 02/24/22 07:54 BMI result Body Mass Index 26.4 Const: Other: has dementia General: comfortable and no acute distress Resp: Effort & Inspection: normal respiratory effort Cardio: Rhythm: abnormal rhythm GI: Other: rectal exam - open wound, right yamilka anal area, with stool; patient seems incontinent as well Palpation (GI): Soft to palpation, not firm and nontender Objective Data Active Medications Acetaminophen (Acetaminophen 325 Mg Tablet) 650 mg PO Q6H PRN PRN Reason: Pain, Mild (Pain Scale 1-3) Last Admin: 03/01/22 17:49 Dose: 650 mg Documented By: GUILLERMO Amoxicillin/Clavulanate Potassium (Amoxicillin/Potassium Clav 875 Mg Tablet) 875 mg PO BID [facility] Last Admin: 03/05/22 07:51 Dose: 875 mg Documented By: BETY Baclofen (Baclofen 10 Mg Tablet) 5 mg PO TID [facility] Stop: 03/08/22 14:59 Last Admin: 03/05/22 07:50 Dose: 5 mg Documented By: BETY Benzonatate (Benzonatate 100 Mg Capsule) 100 mg PO TID PRN PRN Reason: Cough Last Admin: 02/22/22 16:03 Dose: 100 mg Documented By: BOGDAN Carvedilol (Carvedilol 6.25 Mg Tablet) 6.25 mg PO BID [facility]; Protocol Last Admin: 03/05/22 07:51 Dose: 6.25 mg Documented By: BETY Folic Acid (Folic Acid 1 Mg Tablet) 1 mg PO DAILY [facility] Last Admin: 03/05/22 07:51 Dose: 1 mg Documented By: BETY Melatonin (Melatonin 3 Mg Tablet) 3 mg PO BEDTIME PRN PRN Reason: Insomnia Last Admin: 03/02/22 22:12 Dose: 3 mg Documented By: HIPOLITO Nystatin (Nystatin Powder 15 Gm Bottle) 1 appl TOPICAL TID [facility]; Protocol Last Admin: 03/04/22 22:47 Dose: 1 appl Documented By: CRISTOFER Omeprazole (Omeprazole 20 Mg Capsule.Dr) 20 mg PO DAILY@0630 [facility] Last Admin: 03/05/22 05:49 Dose: 20 mg Documented By: ILAN Ondansetron HCl (Ondansetron Hcl 4 Mg/2 Ml Vial) 4 mg IVPUSH Q8H PRN PRN Reason: Nausea and Vomiting Last Admin: 02/27/22 14:51 Dose: 4 mg Documented By: JEAN Pharmacy Consult (Consult Rx Perform Med Rec) 1 each MISCELLANE ONCE PRN PRN Reason: Consult order Rivaroxaban (Rivaroxaban 15 Mg Tablet) 15 mg PO DAILY@1700 [facility] Last Admin: 03/04/22 15:52 Dose: 15 mg Documented By: SIRI Sodium Chloride (0.9 % Sodium Chloride Flush 3 Ml Syringe) 3 ml IVFLUSH QSHIFT [facility] Last Admin: 03/05/22 07:52 Dose: Not Given Documented By: BETY Non-Admin Reason: No Access Spironolactone (Spironolactone 25 Mg Tablet) 12.5 mg PO DAILY [facility]; Protocol Last Admin: 03/05/22 07:51 Dose: 12.5 mg Documented By: BETY Tamsulosin HCl (Tamsulosin Hcl 0.4 Mg Capsule) 0.4 mg PO DAILY [facility] Last Admin: 03/05/22 07:51 Dose: 0.4 mg Documented By: BETY Labs CBC & Chem 7: 02/26/22 14:36 03/06/22 06:05 Procedures Date of Service Date of Service: 03/05/22 Progress Note: A&P Assessment and plan (1) Traumatic perforation of rectum: Status: Acute Assessment and Plan: has large fistulous tract for perianal hygiene however in view of patient's level of function diversion stoma most ideal but patient deemed to be at high risk for any surgical procedure in view of his cardiac history try to maintain good perianal hygiene Time Spent With Patient Time: Total time spent is greater than 50% in coordination of care (as documented) at patient's floor/unit and/or counseling patient: Quality Stroke Does the patient have a stroke diagnosis?: No VTE Prior VTE?: No VTE Risk Level:: Medical - moderate - high VTE Device Contraindication: N/A - Device Ordered VTE Drug Contraindication: Treatment Not Indicated
[2022-03-05] MEDS: Acetaminophen 325 MG TABLET 650 MG PO (17:00)
[2022-03-05] MEDS: Rivaroxaban 15 MG TABLET PO (17:00)
--- NOTE | 2022-03-05 18:08 | PC.NURSE ---
Gave report to Herbert Garner RN. assuming care of patient on medsurg at this time. Going into room 375.
[2022-03-05] MEDS: oxyCODONE HCl Immed Release 5 MG TABLET PO (18:32)
[2022-03-06] VITALS (10 sets, daily range): BP systolic 85–155; BP diastolic 56–81; PULSE 60–101; RESP 11–19; TEMP 36.2–37.1; O2SAT 91–100
[2022-03-06] MEDS: Melatonin 3 MG TABLET PO (01:39)
[2022-03-06] MEDS: oxyCODONE HCl Immed Release 5 MG TABLET PO ×2 (01:39→07:30)
[2022-03-06] MEDS: Omeprazole 20 MG CAPSULE.DR PO (05:31)
[2022-03-06] MEDS: Baclofen 10 MG TABLET 5 MG PO (07:28)
[2022-03-06] MEDS: Folic Acid 1 MG TABLET PO (07:28)
[2022-03-06] MEDS: carvediloL 6.25 MG TABLET PO ×2 (07:29→19:55)
[2022-03-06] MEDS: Tamsulosin HCL 0.4 MG CAPSULE PO (07:29)
[2022-03-06] MEDS: Spironolactone 25 MG TABLET 12.5 MG PO (07:29)
[2022-03-06] MEDS: Amoxicillin/Potassium Clav 875 MG TABLET PO ×2 (07:29→19:54)
[2022-03-06] MEDS: Acetaminophen 325 MG TABLET 650 MG PO ×2 (07:30→15:39)
[2022-03-06] MEDS: Nystatin Powder 15 GM BOTTLE 1 APPL TOPICAL ×3 (07:31→21:11)
[2022-03-06 08:18] LABS: Anion Gap 16 (12-20); Blood Urea Nitrogen 25 mg/dL (9-16); Calcium 8.6 mg/dL (8.4-10.2); Carbon Dioxide 21 mmol/L (22-29); Chloride 104 mmol/L (96-108); Creatinine Clr Calc Pharmacy 60.7; Estimated Glomerular Filt Rate > 60; Glucose Random 99 mg/dL (60-115); Potassium 4.7 mmol/L (3.3-5.1); Sodium 136 mmol/L (135-145)
[2022-03-06 08:53] LABS: Glucose, Whole Blood 115 mg/dL (60-115)
[2022-03-06] MEDS: Lactated Ringers 500 ML 80 ML IV (10:25)
--- NOTE | 2022-03-06 12:03 | HO.PM.IMPN ---
Subjective Subjective Date of Service: 03/06/22 Interval History: Patient noted to be somnolent lethargic this morning, arousable but not communicative not at his baseline, as per nurse receive oxycodone this morning since complained of lower back discomfort, continue to have drainage of stool through perianal wound, no documented temps noted to have low blood pressure,stable blood sugars and oxygenation. Review of Systems Review of Systems: Yes Unobtainable due to mental status Physical Exam Vital Signs: Vital Signs: Last Vital Signs Temp 98.2 F 03/06/22 11:32 Pulse 60 03/06/22 11:32 Resp 18 03/06/22 11:32 BP 113/67 03/06/22 11:32 Pulse Ox 95 03/06/22 11:32 O2 Del Method 03/06/22 11:32 O2 Flow Rate 3 02/24/22 07:54 BMI result Body Mass Index 26.4 Const: Other: General?somnolent but arousable Neck supple no JVD. CVS? regular rate rhythm, Respiratory lungs clear to auscultation, no respiratory distress, no wheeze, no rhonchi. Gastrointestinal abdomen soft, bowel sounds audible, no guarding , no rigidity. Extremities no? edema. Rectal examination open wound with fecal drainage on the perianal area ,no surrounding erythema Neuro somnolent but arousable moving all 4 extremities, face symmetrical Skin no rash Psych appropriate affect Objective Data Active Medications Acetaminophen (Acetaminophen 325 Mg Tablet) 650 mg PO Q6H PRN PRN Reason: Pain, Mild (Pain Scale 1-3) Last Admin: 03/06/22 07:30 Dose: 650 mg Documented By: BETY Amoxicillin/Clavulanate Potassium (Amoxicillin/Potassium Clav 875 Mg Tablet) 875 mg PO BID [facility] Last Admin: 03/06/22 07:29 Dose: 875 mg Documented By: BETY Benzonatate (Benzonatate 100 Mg Capsule) 100 mg PO TID PRN PRN Reason: Cough Last Admin: 02/22/22 16:03 Dose: 100 mg Documented By: BOGDAN Carvedilol (Carvedilol 6.25 Mg Tablet) 6.25 mg PO BID [facility]; Protocol Last Admin: 03/06/22 07:29 Dose: 6.25 mg Documented By: BETY Folic Acid (Folic Acid 1 Mg Tablet) 1 mg PO DAILY [facility] Last Admin: 03/06/22 07:28 Dose: 1 mg Documented By: BETY Lactated Ringer's (Lr) 500 mls @ 80 mls/hr IV .Q6H15M [facility] Stop: 03/06/22 23:59 Last Admin: 03/06/22 10:25 Dose: 80 mls/hr Documented By: BETY Melatonin (Melatonin 3 Mg Tablet) 3 mg PO BEDTIME PRN PRN Reason: Insomnia Last Admin: 03/06/22 01:39 Dose: 3 mg Documented By: GABE Nystatin (Nystatin Powder 15 Gm Bottle) 1 appl TOPICAL TID [facility]; Protocol Last Admin: 03/06/22 07:31 Dose: 1 appl Documented By: BETY Omeprazole (Omeprazole 20 Mg Capsule.) 20 mg PO DAILY@0630 [facility] Last Admin: 03/06/22 05:31 Dose: 20 mg Documented By: GABE Ondansetron HCl (Ondansetron Hcl 4 Mg/2 Ml Vial) 4 mg IVPUSH Q8H PRN PRN Reason: Nausea and Vomiting Last Admin: 02/27/22 14:51 Dose: 4 mg Documented By: JEAN Oxycodone HCl (Oxycodone Hcl Immed Release 5 Mg Tablet) 5 mg PO Q6H PRN PRN Reason: moderate pain Pharmacy Consult (Consult Rx Perform Med Rec) 1 each MISCELLANE ONCE PRN PRN Reason: Consult order Rivaroxaban (Rivaroxaban 15 Mg Tablet) 15 mg PO DAILY@1700 [facility] Last Admin: 03/05/22 17:00 Dose: 15 mg Documented By: BETY Sodium Chloride (0.9 % Sodium Chloride Flush 3 Ml Syringe) 3 ml IVFLUSH QSHIFT [facility] Last Admin: 03/06/22 07:29 Dose: Not Given Documented By: BETY Non-Admin Reason: No Access Spironolactone (Spironolactone 25 Mg Tablet) 12.5 mg PO DAILY [facility]; Protocol Last Admin: 03/06/22 07:29 Dose: 12.5 mg Documented By: BETY Tamsulosin HCl (Tamsulosin Hcl 0.4 Mg Capsule) 0.4 mg PO DAILY [facility] Last Admin: 03/06/22 07:29 Dose: 0.4 mg Documented By: BETY Labs CBC & Chem 7: 02/26/22 14:36 03/06/22 06:05 Labs: Laboratory Results - last 24 hr 03/06/22 03/06/22 06:05 08:49 Anion Gap 16 Estim Creat Clear Calc 60.7 Estimated GFR > 60 POC Glucose 115 Random Glucose 99 Calcium 8.6 Assessment and Plan (1) Urinary tract infection due to ESBL Klebsiella: Status: Acute (2) Perirectal cellulitis: Status: Acute (3) Preoperative cardiovascular examination: Status: Acute (4) Traumatic perforation of rectum: Status: Acute Plan 77yo M with hx chronic HFrEF, AF s/p PPM 2019 AC on rivaroxaban, CKD3, unspecified dementia, brought in after falling in the [place] while intoxicated and developing an open anal wound with fecal drainage admitted for perirectal perforation/cellulitis # perirectal perforation/cellulitis - tolerating diet , persistent drainage through open perianal wound - case discussed with general surgeon, recommended no surgery due to high risk - pending discharge to rehab facility - s/p iv vanco + pip/missael subsequently transitioned to meropenem to cover ESBL UTI, received 8 days of meropenem, now on Augmentin day as per ID recommendation # acute toxic metabolic encephalopathy likely due to baclofen and concomitant use of oxycodone will DC baclofen and change frequency of oxycodone, give IV fluids monitor clinical course closely, electrolytes stable. # intermittent hiccups of several day duration, - patient on Prilosec at baseline - received baclofan , hiccups resolved # urinary discomfort/retention - prn bladder scan, straight cath PRN # chronic HFrEF/NSVT/ AF - compensated CHF with no exacerbation at time time - Echo showed EF of 15-20% , significant dilatation of ascending aortic size at 5 cm.? Unknown coronary status.? - Lasix and enalpril dcd due to hypotension, reassess prior to discharge - continue carvedilol, rivaroxaban, low-dose spironolactone, # Perioperative cardiac exam - Overall, he is at high risk for any surgical procedures for perforation of rectum.? is a definite possibility, therefore cardio rec.to proceed only if absolutely necessary and life saving.? With regard to pacemaker, this is the leadless device.? Interrogated.? Indication listed as AT/AF and sinus node dysfunction.? Battery life more than 8 years.? Normal lead parameters.? Ventricular pacing 55% the time. ? Overall, normal device function. Due to multiple cardiac complications surgeon declined surgery monitor clinically # ESBL UTI [Klebsiella pneumoniae] - treated with meropenem for 8 days # CKD3/ metabolic acidosis, - resolved, received Sodium bicarb # hyperK, mild ,resoved # dementia, unspecified- -at baseline confusion, no behavioral disturbance # VTE ppx: rivaroxaban PT recommends STR In my clinical judgment, the patient requires continued inpatient hospitalization for the following reasons: Waiting for safe discharge to rehab awaiting authorization Quality Stroke Does the patient have a stroke diagnosis?: No VTE Prior VTE?: No VTE Risk Level:: Medical - moderate - high VTE Device Contraindication: N/A - Device Ordered VTE Drug Contraindication: Treatment Not Indicated
[2022-03-06] MEDS: 0.9 % Sodium Chloride Flush 3 ML SYRINGE IVFLUSH ×2 (15:39→19:55)
[2022-03-06] MEDS: Rivaroxaban 15 MG TABLET PO (15:39)
--- NOTE | 2022-03-06 21:35 | PC.NURSE ---
Pt has been denying hygiene care. Pt was found wet and DARLINE Holt and this RN attempted to clean, place new draw sheet and reposition pt but he became combative and denied care. Time spent in room attempting to disuade his decision 25mins. I attempted to call his son 2x but he never picked up. Will continue to monitor.
[2022-03-07 02:43] VITALS: BP 152/95; PULSE 99; RESP 16; TEMP 36.5; O2SAT 98
[2022-03-07 06:54] VITALS: BP 130/90; PULSE 89; RESP 18; TEMP 36; O2SAT 99
[2022-03-07] MEDS: Spironolactone 25 MG TABLET 12.5 MG PO (08:23)
[2022-03-07] MEDS: 0.9 % Sodium Chloride Flush 3 ML SYRINGE IVFLUSH ×3 (08:23→21:17)
[2022-03-07] MEDS: Amoxicillin/Potassium Clav 875 MG TABLET PO ×2 (08:23→21:16)
[2022-03-07] MEDS: carvediloL 6.25 MG TABLET PO ×2 (08:27→21:17)
[2022-03-07] MEDS: Folic Acid 1 MG TABLET PO (08:27)
[2022-03-07] MEDS: Tamsulosin HCL 0.4 MG CAPSULE PO (08:27)
[2022-03-07] MEDS: Nystatin Powder 15 GM BOTTLE 1 APPL TOPICAL ×3 (08:27→21:24)
--- NOTE | 2022-03-07 09:30 | PC.NURSE ---
Assumed care of patient at this time.
[2022-03-07 11:10] VITALS: BP 122/64; PULSE 79; RESP 19; TEMP 36.1; O2SAT 93
--- NOTE | 2022-03-07 12:54 | P.PNIM_ITS ---
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 resting comfortably in no acute distress.? Neck supple no JVD. CVS? regular rate rhythm, Respiratory lungs clear to auscultation, no respiratory distress, no wheeze, no rhonchi. Gastrointestinal abdomen soft, nontender, bowel sounds audible, no guarding , no rigidity. Extremities no? edema. Rectal examination open wound with fecal drainage on the perianal area ,with no cellulitis, no induration Neuro nonfocal, moving all 4 extremity, speech clear. Skin no rash Psych appropriate affect Objective Data Active Medications Acetaminophen (Acetaminophen 325 Mg Tablet) 650 mg PO Q6H PRN PRN Reason: Pain, Mild (Pain Scale 1-3) Last Admin: 03/06/22 15:39 Dose: 650 mg Documented By: BETY Amoxicillin/Clavulanate Potassium (Amoxicillin/Potassium Clav 875 Mg Tablet) 875 mg PO BID [facility] Last Admin: 03/07/22 08:23 Dose: 875 mg Documented By: ALISSON Benzonatate (Benzonatate 100 Mg Capsule) 100 mg PO TID PRN PRN Reason: Cough Last Admin: 02/22/22 16:03 Dose: 100 mg Documented By: BOGDAN Carvedilol (Carvedilol 6.25 Mg Tablet) 6.25 mg PO BID [facility]; Protocol Last Admin: 03/07/22 08:27 Dose: 6.25 mg Documented By: ALISSON Folic Acid (Folic Acid 1 Mg Tablet) 1 mg PO DAILY [facility] Last Admin: 03/07/22 08:27 Dose: 1 mg Documented By: ALISSON Melatonin (Melatonin 3 Mg Tablet) 3 mg PO BEDTIME PRN PRN Reason: Insomnia Last Admin: 03/06/22 01:39 Dose: 3 mg Documented By: GABE Nystatin (Nystatin Powder 15 Gm Bottle) 1 appl TOPICAL TID [facility]; Protocol Last Admin: 03/07/22 08:27 Dose: 1 appl Documented By: ALISSON Omeprazole (Omeprazole 20 Mg Capsule.) 20 mg PO DAILY@0630 [facility] Last Admin: 03/07/22 06:05 Dose: Not Given Documented By: MONIQUE Non-Admin Reason: Patient Refused Ondansetron HCl (Ondansetron Hcl 4 Mg/2 Ml Vial) 4 mg IVPUSH Q8H PRN PRN Reason: Nausea and Vomiting Last Admin: 02/27/22 14:51 Dose: 4 mg Documented By: JEAN Oxycodone HCl (Oxycodone Hcl Immed Release 5 Mg Tablet) 5 mg PO Q6H PRN PRN Reason: moderate pain Pharmacy Consult (Consult Rx Perform Med Rec) 1 each MISCELLANE ONCE PRN PRN Reason: Consult order Rivaroxaban (Rivaroxaban 15 Mg Tablet) 15 mg PO DAILY@1700 [facility] Last Admin: 03/06/22 15:39 Dose: 15 mg Documented By: BETY Sodium Chloride (0.9 % Sodium Chloride Flush 3 Ml Syringe) 3 ml IVFLUSH QSHIFT [facility] Last Admin: 03/07/22 08:23 Dose: 3 ml Documented By: ALISSON Spironolactone (Spironolactone 25 Mg Tablet) 12.5 mg PO DAILY [facility]; Protocol Last Admin: 03/07/22 08:23 Dose: 12.5 mg Documented By: ALISSON Comments: Tamsulosin HCl (Tamsulosin Hcl 0.4 Mg Capsule) 0.4 mg PO DAILY [facility] Last Admin: 03/07/22 08:27 Dose: 0.4 mg Documented By: ALISSON Labs CBC & Chem 7: 02/26/22 14:36 03/06/22 06:05 Assessment and Plan (1) Urinary tract infection due to ESBL Klebsiella: Status: Acute (2) Perirectal cellulitis: Status: Acute (3) Preoperative cardiovascular examination: Status: Acute (4) Traumatic perforation of rectum: Status: Acute Plan 77yo M with hx chronic HFrEF, AF s/p PPM 2019 AC on rivaroxaban, CKD3, unspecified dementia, brought in after falling in the [place] while intoxicated and developing an open anal wound with fecal drainage admitted for perirectal perforation/cellulitis # perirectal perforation/cellulitis - tolerating diet , persistent drainage through open perianal wound, cellulitis resolved - case discussed with general surgeon, recommended no surgery due to high risk - pending discharge to rehab facility - s/p iv vanco + pip/missael subsequently transitioned to meropenem to cover ESBL UTI, received 8 days of meropenem, now on Augmentin day as per ID recommendation # acute toxic metabolic encephalopathy likely due to baclofen and concomitant use of oxycodone Resolved /baclofen discontinued # intermittent hiccups of several day duration, Resolved continue Prilosec # urinary discomfort/retention - prn bladder scan, straight cath PRN # chronic HFrEF/NSVT/ AF - compensated CHF with no exacerbation at time time - Echo showed EF of 15-20% , significant dilatation of ascending aortic size at 5 cm.? Unknown coronary status.? - Lasix and enalpril dcd due to hypotension, reassess prior to discharge - continue carvedilol, rivaroxaban, low-dose spironolactone, # Perioperative cardiac exam - Overall, he is at high risk for any surgical procedures for perforation of rectum.? is a definite possibility, therefore cardio rec.to proceed only if absolutely necessary and life saving.? With regard to pacemaker, this is the leadless device.? Interrogated.? Indication listed as AT/AF and sinus node dysfunction.? Battery life more than 8 years.? Normal lead parameters.? Ventricular pacing 55% the time. ? Overall, normal device function. Due to multiple cardiac complications surgeon declined surgery # ESBL UTI [Klebsiella pneumoniae] - treated with meropenem for 8 days # CKD3/ metabolic acidosis, - resolved, received Sodium bicarb # hyperK, mild ,resoved # dementia, unspecified- -at baseline confusion, no behavioral disturbance # VTE ppx: rivaroxaban PT recommends STR In my clinical judgment, the patient requires continued inpatient hospitalization for the following reasons: Waiting for safe discharge to rehab awaiting authorization Quality Stroke Does the patient have a stroke diagnosis?: No VTE Prior VTE?: No VTE Risk Level:: Medical - moderate - high VTE Device Contraindication: N/A - Device Ordered VTE Drug Contraindication: Treatment Not Indicated
[2022-03-07] MEDS: Rivaroxaban 15 MG TABLET PO (13:55)
[2022-03-07] MEDS: Acetaminophen 325 MG TABLET 650 MG PO ×2 (13:55→21:17)
[2022-03-07 16:00] VITALS: BP 130/62; PULSE 75; RESP 17; TEMP 36.4; O2SAT 96
--- NOTE | 2022-03-07 16:01 | MHC.CM.PN ---
EMR REVIEWED, PT W/DEMENTIA WILL LIKELY NEED LTC, CM SPOKE W/FS WHO LOOKED PT UP AND HE DOES HAVE MH STANDARD HOWEVER WOULD STILL NEED BANK STATEMENTS ETC FOR LTC APPLICATION. SNF REFERRAL REVIEWED AND UPDATED AND CM ATTEMPTED TO CONTACT PT'S SON/HCP FR[facility]ICK AT 3:20PM AT NUMBER ON FILE, NO ANSWER AND MESSAGE LEFT W/CM CONTACT INFO. CM WILL CONT TO MONITOR D/C NEEDS.
[2022-03-07 20:00] VITALS: BP 125/70; PULSE 80; RESP 17; TEMP 36.3; O2SAT 95
[2022-03-07] MEDS: Melatonin 3 MG TABLET PO (21:17)
[2022-03-07] MEDS: oxyCODONE HCl Immed Release 5 MG TABLET PO (21:17)
[2022-03-08] VITALS: BP 98/69; PULSE 70; RESP 17; TEMP 36.1; O2SAT 97
[2022-03-08 03:58] VITALS: BP 99/64; PULSE 72; RESP 17; TEMP 36.2; O2SAT 97
[2022-03-08] MEDS: Acetaminophen 325 MG TABLET 650 MG PO ×2 (05:39→14:30)
[2022-03-08] MEDS: Omeprazole 20 MG CAPSULE.DR PO (05:40)
[2022-03-08] MEDS: Tamsulosin HCL 0.4 MG CAPSULE PO (07:36)
[2022-03-08] MEDS: Spironolactone 25 MG TABLET 12.5 MG PO (07:36)
[2022-03-08] MEDS: Folic Acid 1 MG TABLET PO (07:36)
[2022-03-08] MEDS: carvediloL 6.25 MG TABLET PO ×2 (07:36→20:25)
[2022-03-08] MEDS: 0.9 % Sodium Chloride Flush 3 ML SYRINGE IVFLUSH ×3 (07:39→20:26)
[2022-03-08] MEDS: Nystatin Powder 15 GM BOTTLE 1 APPL TOPICAL ×3 (07:40→20:26)
[2022-03-08 07:51] VITALS: BP 128/83; PULSE 85; RESP 18; TEMP 36.6; O2SAT 96
--- NOTE | 2022-03-08 14:37 | HO.PM.IMPN ---
Subjective Subjective Date of Service: 03/08/22 Interval History: patient awake alert tolerating diet no acute issues overnight, no fevers no chills, denies headache, no dizziness, no shortness of breath, no chest pain. Review of Systems CVS no chest pain, no palpitation respiratory no shortness of breath no urgency Review of Systems: Yes all other systems are reviewed and are negative Physical Exam Vital Signs: Vital Signs: Last Vital Signs Temp 97.9 F 03/08/22 07:51 Pulse 85 03/08/22 07:51 Resp 18 03/08/22 07:51 BP 128/83 03/08/22 07:51 Pulse Ox 96 03/08/22 07:51 O2 Del Method 03/08/22 07:51 O2 Flow Rate 2 03/08/22 07:51 BMI result Body Mass Index 26.4 Const: Other: General? resting comfortably in no acute distress.? Neck supple no JVD. CVS? regular rate rhythm, Respiratory lungs clear to auscultation, no respiratory distress, no wheeze, no rhonchi. Gastrointestinal abdomen soft, nontender, bowel sounds audible, no guarding , no rigidity. Extremities no? edema. Rectal examination open wound with fecal drainage on the perianal area no surrounding redness. Neuro nonfocal, moving all 4 extremity, speech clear. Skin no rash Psych appropriate affect Objective Data Active Medications Acetaminophen (Acetaminophen 325 Mg Tablet) 650 mg PO Q6H PRN PRN Reason: Pain, Mild (Pain Scale 1-3) Last Admin: 03/08/22 14:30 Dose: 650 mg Documented By: SANDRA Benzonatate (Benzonatate 100 Mg Capsule) 100 mg PO TID PRN PRN Reason: Cough Last Admin: 02/22/22 16:03 Dose: 100 mg Documented By: BOGDAN Carvedilol (Carvedilol 6.25 Mg Tablet) 6.25 mg PO BID [facility]; Protocol Last Admin: 03/08/22 07:36 Dose: 6.25 mg Documented By: SANDRA Folic Acid (Folic Acid 1 Mg Tablet) 1 mg PO DAILY [facility] Last Admin: 03/08/22 07:36 Dose: 1 mg Documented By: SANDRA Melatonin (Melatonin 3 Mg Tablet) 3 mg PO BEDTIME PRN PRN Reason: Insomnia Last Admin: 03/07/22 21:17 Dose: 3 mg Documented By: MILAD Nystatin (Nystatin Powder 15 Gm Bottle) 1 appl TOPICAL TID [facility]; Protocol Last Admin: 03/08/22 07:40 Dose: 1 appl Documented By: SANDRA Omeprazole (Omeprazole 20 Mg Capsule.) 20 mg PO DAILY@0630 [facility] Last Admin: 03/08/22 05:40 Dose: 20 mg Documented By: MILAD Ondansetron HCl (Ondansetron Hcl 4 Mg/2 Ml Vial) 4 mg IVPUSH Q8H PRN PRN Reason: Nausea and Vomiting Last Admin: 02/27/22 14:51 Dose: 4 mg Documented By: JEAN Oxycodone HCl (Oxycodone Hcl Immed Release 5 Mg Tablet) 5 mg PO Q6H PRN PRN Reason: moderate pain Last Admin: 03/07/22 21:17 Dose: 5 mg Documented By: MILAD Pharmacy Consult (Consult Rx Perform Med Rec) 1 each MISCELLANE ONCE PRN PRN Reason: Consult order Rivaroxaban (Rivaroxaban 15 Mg Tablet) 15 mg PO DAILY@1700 [facility] Last Admin: 03/07/22 13:55 Dose: 15 mg Documented By: SERA-RIVLA Sodium Chloride (0.9 % Sodium Chloride Flush 3 Ml Syringe) [address] [facility] Last Admin: 03/08/22 07:39 Dose: 3 ml Documented By: SANDRA Spironolactone (Spironolactone 25 Mg Tablet) 12.5 mg PO DAILY [facility]; Protocol Last Admin: 03/08/22 07:36 Dose: 12.5 mg Documented By: SANDRA Tamsulosin HCl (Tamsulosin Hcl 0.4 Mg Capsule) 0.4 mg PO DAILY [facility] Last Admin: 03/08/22 07:36 Dose: 0.4 mg Documented By: SANDRA Labs CBC & Chem 7: 02/26/22 14:36 03/06/22 06:05 Assessment and Plan (1) Urinary tract infection due to ESBL Klebsiella: Status: Acute (2) Perirectal cellulitis: Status: Acute (3) Preoperative cardiovascular examination: Status: Acute (4) Traumatic perforation of rectum: Status: Acute Plan 77yo M with hx chronic HFrEF, AF s/p PPM 2019 AC on rivaroxaban, CKD3, unspecified dementia, brought in after falling [place] the [place] while intoxicated and developing an open anal wound with fecal drainage admitted for perirectal perforation/cellulitis # perirectal perforation/cellulitis - tolerating diet , drainage through open perianal wound slowing down, cellulitis resolved - case discussed with general surgeon, recommended no surgery due to high risk - waiting discharge to rehab facility - s/p iv vanco + pip/missael subsequently transitioned to meropenem to cover ESBL UTI, received 8 days of meropenem, now on Augmentin day 9 spoke with Infectious Disease will discontinue antibiotics since patient remains stable with no fevers # acute toxic metabolic encephalopathy likely due to baclofen and concomitant use of oxycodone Resolved /baclofen discontinued # intermittent hiccups of several day duration, Resolved continue Prilosec # urinary discomfort/retention - prn bladder scan, straight cath PRN # chronic HFrEF/NSVT/ AF - compensated CHF with no exacerbation at time time - Echo showed EF of 15-20% , significant dilatation of ascending aortic size at 5 cm.? Unknown coronary status.? - Lasix and enalpril dcd due to hypotension, reassess prior to discharge - continue carvedilol, rivaroxaban, low-dose spironolactone, wean oxygen # Perioperative cardiac exam - Overall, he is at high risk for any surgical procedures for perforation of rectum.? is a definite possibility, therefore cardio rec.to proceed only if absolutely necessary and life saving.? Due to multiple cardiac complications surgeon declined surgery # ESBL UTI [Klebsiella pneumoniae] - treated with meropenem for 8 days # CKD3/ metabolic acidosis, - resolved, received Sodium bicarb # hyperK, mild ,resoved # dementia, unspecified- -at baseline confusion, no behavioral disturbance # VTE ppx: rivaroxaban PT recommends STR In my clinical judgment, the patient requires continued inpatient hospitalization for the following reasons: Waiting for safe discharge to rehab awaiting authorization Quality Stroke Does the patient have a stroke diagnosis?: No VTE Prior VTE?: No VTE Risk Level:: Medical - moderate - high VTE Device Contraindication: N/A - Device Ordered VTE Drug Contraindication: Treatment Not Indicated
[2022-03-08 15:48] VITALS: BP 118/88; PULSE 89; RESP 16; TEMP 36.4; O2SAT 93
--- NOTE | 2022-03-08 15:59 | MHC.CM.PN ---
CM MET W/PT'S SON HCP FREDERICK AT BEDSIDE, PT'S SON REPORTS HE DOES FEEL PT NEEDS LTC D/T DEMENTIA AND LIMITED MOBILITY, FREDERICK ABARCA REPORTS HE HAS PATIENTS BANKING INFO AT HOME AND PT HAS HAD 2 BANK ACCOUNTS, [employer] AND THEN [employer] 5YRS AGO PT HAD [employer] [facility]ULAR IN [place] PRIOR TO MOVING TO [facility]. FREDERICK ABARCA REPORTS HE WILL BRING IN BANK INFO IN ON SUNDAY AND CM WILL FAX REFERRAL TO [facility] TO START LTC [facility]. PT HAS NO BED OFFERS AT THIS TIME, CM WILL CONT TO FOLLOW.
[2022-03-08] MEDS: Rivaroxaban 15 MG TABLET PO (16:19)
[2022-03-08 19:17] VITALS: BP 101/77; PULSE 97; RESP 18; TEMP 36.9; O2SAT 95
[2022-03-08 23:02] VITALS: BP 116/84; PULSE 88; RESP 18; TEMP 36.6; O2SAT 97
[2022-03-09 03:50] VITALS: BP 116/82; PULSE 79; RESP 18; TEMP 37; O2SAT 98
[2022-03-09] MEDS: Omeprazole 20 MG CAPSULE.DR PO (05:32)
[2022-03-09 08:00] VITALS: BP 112/91; PULSE 95; RESP 18; TEMP 36.7; O2SAT 100
[2022-03-09] MEDS: Nystatin Powder 15 GM BOTTLE 1 APPL TOPICAL ×3 (09:42→21:13)
[2022-03-09] MEDS: Spironolactone 25 MG TABLET 12.5 MG PO (09:43)
[2022-03-09] MEDS: Tamsulosin HCL 0.4 MG CAPSULE PO (09:43)
[2022-03-09] MEDS: carvediloL 6.25 MG TABLET PO ×2 (09:43→21:12)
[2022-03-09] MEDS: 0.9 % Sodium Chloride Flush 3 ML SYRINGE IVFLUSH ×3 (09:43→21:13)
[2022-03-09] MEDS: Folic Acid 1 MG TABLET PO (09:48)
--- NOTE | 2022-03-09 10:15 | P.PNIM_ITS ---
Subjective Subjective Date of Service: 03/09/22 Interval History: offers no acute complaints tolerating diet no nausea no vomiting no abdominal pain significantly less drainage from perianal wound, no complain of pain remains pleasantly confused. Review of Systems Review of Systems: Yes all other systems are reviewed and are negative Physical Exam Vital Signs: Vital Signs: Last Vital Signs Temp 98.0 F 03/09/22 08:00 Pulse 95 03/09/22 08:00 Resp 18 03/09/22 08:00 BP 112/91 H 03/09/22 08:00 Pulse Ox 100 03/09/22 08:00 O2 Del Method 03/09/22 08:00 O2 Flow Rate 2 03/08/22 07:51 BMI result Body Mass Index 26.4 Const: Other: General? resting comfortably in no acute distress.? Neck supple no JVD. CVS? regular rate rhythm, Respiratory lungs clear to auscultation, no respiratory distress, no wheeze, no rhonchi. Gastrointestinal abdomen soft, nontender, bowel sounds audible, no guarding , no rigidity. Extremities no? edema. Rectal examination open wound perianal area? no surrounding redness. Neuro nonfocal, moving all 4 extremity, speech clear. Skin no rash Psych appropriate affect Objective Data Active Medications Acetaminophen (Acetaminophen 325 Mg Tablet) 650 mg PO Q6H PRN PRN Reason: Pain, Mild (Pain Scale 1-3) Last Admin: 03/08/22 14:30 Dose: 650 mg Documented By: SANDRA Benzonatate (Benzonatate 100 Mg Capsule) 100 mg PO TID PRN PRN Reason: Cough Last Admin: 02/22/22 16:03 Dose: 100 mg Documented By: BOGDAN Carvedilol (Carvedilol 6.25 Mg Tablet) 6.25 mg PO BID [facility]; Protocol Last Admin: 03/09/22 09:43 Dose: 6.25 mg Documented By: CHEMO Folic Acid (Folic Acid 1 Mg Tablet) 1 mg PO DAILY [facility] Last Admin: 03/09/22 09:48 Dose: 1 mg Documented By: CHEMO Melatonin (Melatonin 3 Mg Tablet) 3 mg PO BEDTIME PRN PRN Reason: Insomnia Last Admin: 03/07/22 21:17 Dose: 3 mg Documented By: MILAD Nystatin (Nystatin Powder 15 Gm Bottle) 1 appl TOPICAL TID [facility]; Protocol Last Admin: 03/09/22 09:42 Dose: 1 appl Documented By: CHEMO Omeprazole (Omeprazole 20 Mg Capsule.) 20 mg PO DAILY@0630 [facility] Last Admin: 03/09/22 05:32 Dose: 20 mg Documented By: MICHAEL Ondansetron HCl (Ondansetron Hcl 4 Mg/2 Ml Vial) 4 mg IVPUSH Q8H PRN PRN Reason: Nausea and Vomiting Last Admin: 02/27/22 14:51 Dose: 4 mg Documented By: JEAN Oxycodone HCl (Oxycodone Hcl Immed Release 5 Mg Tablet) 5 mg PO Q6H PRN PRN Reason: moderate pain Last Admin: 03/07/22 21:17 Dose: 5 mg Documented By: MILAD Pharmacy Consult (Consult Rx Perform Med Rec) 1 each MISCELLANE ONCE PRN PRN Reason: Consult order Rivaroxaban (Rivaroxaban 15 Mg Tablet) 15 mg PO DAILY@1700 [facility] Last Admin: 03/08/22 16:19 Dose: 15 mg Documented By: DABSong Sodium Chloride (0.9 % Sodium Chloride Flush 3 Ml Syringe) 3 ml IVFLUSH QSHIFT [facility] Last Admin: 03/09/22 09:43 Dose: 3 ml Documented By: CHEMO Spironolactone (Spironolactone 25 Mg Tablet) 12.5 mg PO DAILY [facility]; Protocol Last Admin: 03/09/22 09:43 Dose: 12.5 mg Documented By: CHEMO Tamsulosin HCl (Tamsulosin Hcl 0.4 Mg Capsule) 0.4 mg PO DAILY [facility] Last Admin: 03/09/22 09:43 Dose: 0.4 mg Documented By: CHEMO Labs CBC & Chem 7: 02/26/22 14:36 03/06/22 06:05 Assessment and Plan (1) Urinary tract infection due to ESBL Klebsiella: Status: Acute (2) Perirectal cellulitis: Status: Acute (3) Preoperative cardiovascular examination: Status: Acute (4) Traumatic perforation of rectum: Status: Acute Plan 77yo M with hx chronic HFrEF, AF s/p PPM 2020 AC on rivaroxaban, CKD3, unspecified dementia, brought in after falling in the [place] while intoxicated and developing an open anal wound with fecal drainage admitted for perirectal perforation/cellulitis # perirectal perforation/cellulitis - tolerating diet , drainage through open perianal wound slowed down, cellulitis resolved - case discussed with general surgeon, recommended no surgery due to high risk - waiting discharge to rehab facility - s/p iv vanco + pip/missael subsequently transitioned to meropenem to cover ESBL UTI, received 8 days of iv meropenem, status post 9 days of Augmentin ended stable with no fevers , normal WBC # acute toxic metabolic encephalopathy likely due to baclofen and concomitant use of oxycodone Resolved /baclofen discontinued # intermittent hiccups of several day duration, Resolved continue Prilosec # urinary discomfort/retention - prn bladder scan, straight cath PRN # chronic HFrEF/NSVT/ AF - compensated CHF with no exacerbation at time time - Echo showed EF of 15-20% , significant dilatation of ascending aortic size at 5 cm.? Unknown coronary status.? - Lasix and enalpril dcd due to hypotension, reassess prior to discharge - continue carvedilol, rivaroxaban, low-dose spironolactone, on room air finger oximetry 100% # Perioperative cardiac exam - Overall, he is at high risk for any surgical procedures for perforation of rectum.? is a definite possibility, therefore cardio rec.to proceed only if absolutely necessary and life saving.? Due to multiple cardiac complications surgeon declined surgery # ESBL UTI [Klebsiella pneumoniae] - treated with meropenem for 8 days # CKD3/ acute metabolic acidosis, - resolved, received Sodium bicarb # hyperK, mild ,resoved # dementia, unspecified- -at baseline confusion, no behavioral disturbance # VTE ppx: rivaroxaban PT recommends STR In my clinical judgment, the patient requires continued inpatient hospitalization for the following reasons: Waiting for safe discharge to rehab awaiting authorization Quality Stroke Does the patient have a stroke diagnosis?: No VTE Prior VTE?: No VTE Risk Level:: Medical - moderate - high VTE Device Contraindication: N/A - Device Ordered VTE Drug Contraindication: Treatment Not Indicated
[2022-03-09] MEDS: Acetaminophen 325 MG TABLET 650 MG PO ×2 (10:17→21:19)
[2022-03-09 11:34] VITALS: BP 94/71; PULSE 76; RESP 18; TEMP 36.4; O2SAT 97
[2022-03-09 15:23] VITALS: BP 101/75; PULSE 80; RESP 16; TEMP 36.9; O2SAT 98
[2022-03-09] MEDS: Rivaroxaban 15 MG TABLET PO (17:27)
[2022-03-09 19:21] VITALS: BP 116/64; PULSE 96; RESP 16; TEMP 37.3; O2SAT 99
[2022-03-09 23:26] VITALS: BP 94/60; PULSE 77; RESP 18; TEMP 36.4; O2SAT 98
[2022-03-10] VITALS (7 sets, daily range): BP systolic 98–118; BP diastolic 69–86; PULSE 47–95; RESP 16–18; TEMP 36.6–36.9; O2SAT 93–100
[2022-03-10] MEDS: Omeprazole 20 MG CAPSULE.DR PO (05:47)
[2022-03-10] MEDS: Folic Acid 1 MG TABLET PO (08:43)
[2022-03-10] MEDS: Tamsulosin HCL 0.4 MG CAPSULE PO (08:43)
[2022-03-10] MEDS: carvediloL 6.25 MG TABLET PO ×2 (08:44→19:36)
[2022-03-10] MEDS: Spironolactone 25 MG TABLET 12.5 MG PO (08:44)
[2022-03-10] MEDS: Acetaminophen 325 MG TABLET 650 MG PO ×2 (08:44→17:13)
[2022-03-10] MEDS: Nystatin Powder 15 GM BOTTLE 1 APPL TOPICAL ×2 (08:46→19:42)
[2022-03-10] MEDS: 0.9 % Sodium Chloride Flush 3 ML SYRINGE IVFLUSH ×3 (08:47→19:36)
--- NOTE | 2022-03-10 13:59 | P.PNIM_ITS ---
Subjective Subjective Date of Service: 03/10/22 Interval History: no acute complaints sitting comfortably in bed, eating breakfast, no nausea, no vomiting, no abdominal pain, no other acute issues overnight, patient remains pleasantly confused Review of Systems Review of Systems: Yes all other systems are reviewed and are negative Physical Exam Vital Signs: Vital Signs: Last Vital Signs Temp 97.8 F 03/10/22 11:51 Pulse 83 03/10/22 11:51 Resp 18 03/10/22 11:51 BP 98/73 03/10/22 11:51 Pulse Ox 97 03/10/22 11:51 O2 Del Method 03/10/22 11:51 O2 Flow Rate 3 03/10/22 05:12 BMI result Body Mass Index 26.4 Const: Other: General? resting comfortably in no acute distress.? Neck supple no JVD. CVS? regular rate rhythm, Respiratory lungs clear to auscultation, no respiratory distress, no wheeze, no rhonchi. Gastrointestinal abdomen soft, nontender, bowel sounds audible, no guarding , no rigidity. Extremities no? edema. Rectal examination open wound perianal area, no surrounding redness. Neuro nonfocal, moving all 4 extremity, speech clear. Skin no rash Psych appropriate affect Objective Data Active Medications Acetaminophen (Acetaminophen 325 Mg Tablet) 650 mg PO Q6H PRN PRN Reason: Pain, Mild (Pain Scale 1-3) Last Admin: 03/10/22 08:44 Dose: 650 mg Documented By: CHEMO Benzonatate (Benzonatate 100 Mg Capsule) 100 mg PO TID PRN PRN Reason: Cough Last Admin: 02/22/22 16:03 Dose: 100 mg Documented By: BOGDAN Carvedilol (Carvedilol 6.25 Mg Tablet) 6.25 mg PO BID [facility]; Protocol Last Admin: 03/10/22 08:44 Dose: 6.25 mg Documented By: CHEMO Folic Acid (Folic Acid 1 Mg Tablet) 1 mg PO DAILY [facility] Last Admin: 03/10/22 08:43 Dose: 1 mg Documented By: CHEMO Melatonin (Melatonin 3 Mg Tablet) 3 mg PO BEDTIME PRN PRN Reason: Insomnia Last Admin: 03/07/22 21:17 Dose: 3 mg Documented By: MILAD Nystatin (Nystatin Powder 15 Gm Bottle) 1 appl TOPICAL TID [facility]; Protocol Last Admin: 03/10/22 08:46 Dose: 1 appl Documented By: CHEMO Omeprazole (Omeprazole 20 Mg Capsule.) 20 mg PO DAILY@0630 [facility] Last Admin: 03/10/22 05:47 Dose: 20 mg Documented By: MICHAEL Ondansetron HCl (Ondansetron Hcl 4 Mg/2 Ml Vial) 4 mg IVPUSH Q8H PRN PRN Reason: Nausea and Vomiting Last Admin: 02/27/22 14:51 Dose: 4 mg Documented By: JEAN Oxycodone HCl (Oxycodone Hcl Immed Release 5 Mg Tablet) 5 mg PO Q6H PRN PRN Reason: moderate pain Last Admin: 03/07/22 21:17 Dose: 5 mg Documented By: MILAD Pharmacy Consult (Consult Rx Perform Med Rec) 1 each MISCELLANE ONCE PRN PRN Reason: Consult order Rivaroxaban (Rivaroxaban 15 Mg Tablet) 15 mg PO DAILY@1700 [facility] Last Admin: 03/09/22 17:27 Dose: 15 mg Documented By: CHEMO Sodium Chloride (0.9 % Sodium Chloride Flush 3 Ml Syringe) 3 ml IVFLUSH QSHIFT [facility] Last Admin: 03/10/22 08:47 Dose: 3 ml Documented By: CHEMO Spironolactone (Spironolactone 25 Mg Tablet) 12.5 mg PO DAILY [facility]; Protocol Last Admin: 03/10/22 08:44 Dose: 12.5 mg Documented By: CHEMO Tamsulosin HCl (Tamsulosin Hcl 0.4 Mg Capsule) 0.4 mg PO DAILY [facility] Last Admin: 03/10/22 08:43 Dose: 0.4 mg Documented By: CHEMO Labs CBC & Chem 7: 02/26/22 14:36 03/06/22 06:05 Assessment and Plan (1) Urinary tract infection due to ESBL Klebsiella: Status: Acute (2) Perirectal cellulitis: Status: Acute (3) Preoperative cardiovascular examination: Status: Acute (4) Traumatic perforation of rectum: Status: Acute Plan 77yo M with hx chronic HFrEF, AF s/p PPM 2020 AC on rivaroxaban, CKD3, unspecified dementia, brought in after falling in the [place] while intoxicated and developing an open anal wound with fecal drainage admitted for perirectal perforation/cellulitis # perirectal perforation/cellulitis - tolerating diet , drainage through open perianal wound slowed down, cellulitis resolved - no surgery due to high risk - s/p iv vanco + pip/missael subsequently transitioned to meropenem to cover ESBL UTI, received 8 days of iv meropenem, status post 9 days of Augmentin ended stable with no fevers , normal WBC # acute toxic metabolic encephalopathy likely due to baclofen and concomitant use of oxycodone Resolved /baclofen discontinued # intermittent hiccups of several day duration, Resolved continue Prilosec # urinary discomfort/retention - prn bladder scan, straight cath PRN # chronic HFrEF/NSVT/ AF - compensated CHF with no exacerbation at time time - Echo showed EF of 15-20% , significant dilatation of ascending aortic size at 5 cm.? Unknown coronary status.? - Lasix and enalpril dcd due to hypotension, reassess prior to discharge - continue carvedilol, rivaroxaban, low-dose spironolactone, on room air fi nger oximetry 100% # Perioperative cardiac exam - Overall, he is at high risk for any surgical procedures for perforation of rectum.? is a definite possibility, therefore cardio rec.to proceed only if absolutely necessary and life saving.? Due to multiple cardiac complications surgeon declined surgery # ESBL UTI [Klebsiella pneumoniae] - treated with meropenem for 8 days # CKD3/ acute metabolic acidosis, - resolved, received Sodium bicarb # hyperK, mild ,resoved # dementia, unspecified- -at baseline confusion, no behavioral disturbance # VTE ppx: rivaroxaban PT recommends STR In my clinical judgment, the patient requires continued inpatient hospitalization for the following reasons: Waiting for safe discharge to rehab awaiting authorization Quality Stroke Does the patient have a stroke diagnosis?: No VTE Prior VTE?: No VTE Risk Level:: Medical - moderate - high VTE Device Contraindication: N/A - Device Ordered VTE Drug Contraindication: Treatment Not Indicated
[2022-03-10] MEDS: Rivaroxaban 15 MG TABLET PO (17:13)
[2022-03-10] MEDS: oxyCODONE HCl Immed Release 5 MG TABLET PO (19:36)
[2022-03-11] VITALS (7 sets, daily range): BP systolic 100–119; BP diastolic 67–84; PULSE 75–106; RESP 12–18; TEMP 36–37.6; O2SAT 96–100
[2022-03-11] MEDS: Omeprazole 20 MG CAPSULE.DR PO (06:21)
[2022-03-11] MEDS: Acetaminophen 325 MG TABLET 650 MG PO ×2 (06:22→15:52)
[2022-03-11] MEDS: Spironolactone 25 MG TABLET 12.5 MG PO (08:55)
[2022-03-11] MEDS: carvediloL 6.25 MG TABLET PO ×2 (08:56→20:50)
[2022-03-11] MEDS: Folic Acid 1 MG TABLET PO (08:56)
[2022-03-11] MEDS: Tamsulosin HCL 0.4 MG CAPSULE PO (08:57)
[2022-03-11] MEDS: Nystatin Powder 15 GM BOTTLE 1 APPL TOPICAL ×3 (08:57→20:52)
[2022-03-11] MEDS: oxyCODONE HCl Immed Release 5 MG TABLET PO (08:57)
--- NOTE | 2022-03-11 08:59 | P.PNIM_ITS ---
Subjective Subjective Date of Service: 03/11/22 Interval History: patient awake alert remains pleasantly confused, son at bedside, patient offers no acute complaints, no overnight events, no fevers no chills, tolerating diet no abdominal pain no nausea no vomiting. Review of Systems Review of Systems: Yes all other systems are reviewed and are negative Physical Exam Vital Signs: Vital Signs: Last Vital Signs Temp 96.8 F 03/11/22 08:00 Pulse 106 H 03/11/22 08:00 Resp 12 03/11/22 08:00 BP 116/84 03/11/22 08:00 Pulse Ox 96 03/11/22 08:00 O2 Del Method 03/11/22 08:00 O2 Flow Rate 3 03/10/22 05:12 BMI result Body Mass Index 26.4 Const: Other: General? resting comfortably in no acute distress.? Neck supple no JVD. CVS? regular rate rhythm, Respiratory lungs clear to auscultation, no respiratory distress, no wheeze, no rhonchi. Gastrointestinal abdomen soft, nontender, bowel sounds audible, no guarding , no rigidity. Extremities no? edema. Rectal examination open wound perianal area with drainage of soft stool, mild s urrounding redness Neuro nonfocal, moving all 4 extremity, speech clear. Skin no rash Psych appropriate affect Objective Data Active Medications Acetaminophen (Acetaminophen 325 Mg Tablet) 650 mg PO Q6H PRN PRN Reason: Pain, Mild (Pain Scale 1-3) Last Admin: 03/11/22 06:22 Dose: 650 mg Documented By: KAYLEEN Benzonatate (Benzonatate 100 Mg Capsule) 100 mg PO TID PRN PRN Reason: Cough Last Admin: 02/22/22 16:03 Dose: 100 mg Documented By: BOGDAN Carvedilol (Carvedilol 6.25 Mg Tablet) 6.25 mg PO BID [facility]; Protocol Last Admin: 03/10/22 19:36 Dose: 6.25 mg Documented By: KAYLEEN Folic Acid (Folic Acid 1 Mg Tablet) 1 mg PO DAILY [facility] Last Admin: 03/10/22 08:43 Dose: 1 mg Documented By: CHEMO Melatonin (Melatonin 3 Mg Tablet) 3 mg PO BEDTIME PRN PRN Reason: Insomnia Last Admin: 03/07/22 21:17 Dose: 3 mg Documented By: MILAD Nystatin (Nystatin Powder 15 Gm Bottle) 1 appl TOPICAL TID [facility]; Protocol Last Admin: 03/10/22 19:42 Dose: 1 appl Documented By: KAYLEEN Omeprazole (Omeprazole 20 Mg Capsule.) 20 mg PO DAILY@0630 [facility] Last Admin: 03/11/22 06:21 Dose: 20 mg Documented By: KAYLEEN Ondansetron HCl (Ondansetron Hcl 4 Mg/2 Ml Vial) 4 mg IVPUSH Q8H PRN PRN Reason: Nausea and Vomiting Last Admin: 02/27/22 14:51 Dose: 4 mg Documented By: JEAN Oxycodone HCl (Oxycodone Hcl Immed Release 5 Mg Tablet) 5 mg PO Q6H PRN PRN Reason: moderate pain Last Admin: 03/10/22 19:36 Dose: 5 mg Documented By: KAYLEEN Pharmacy Consult (Consult Rx Perform Med Rec) 1 each MISCELLANE ONCE PRN PRN Reason: Consult order Rivaroxaban (Rivaroxaban 15 Mg Tablet) 15 mg PO DAILY@1700 [facility] Last Admin: 03/10/22 17:13 Dose: 15 mg Documented By: CHEMO Sodium Chloride (0.9 % Sodium Chloride Flush 3 Ml Syringe) [facility] Last Admin: 03/10/22 19:36 Dose: 3 ml Documented By: KAYLEEN Spironolactone (Spironolactone 25 Mg Tablet) 12.5 mg PO DAILY [facility]; Protocol Last Admin: 03/10/22 08:44 Dose: 12.5 mg Documented By: CHEMO Tamsulosin HCl (Tamsulosin Hcl 0.4 Mg Capsule) 0.4 mg PO DAILY [facility] Last Admin: 03/10/22 08:43 Dose: 0.4 mg Documented By: CHEMO Labs CBC & Chem 7: 02/26/22 14:36 03/06/22 06:05 Assessment and Plan (1) Urinary tract infection due to ESBL Klebsiella: Status: Acute (2) Perirectal cellulitis: Status: Acute (3) Preoperative cardiovascular examination: Status: Acute (4) Traumatic perforation of rectum: Status: Acute Plan 77yo M with hx chronic HFrEF, AF s/p PPM 2019 AC on rivaroxaban, CKD3, unspecified dementia, brought in after falling in the [place] while intoxicated and developing an open anal wound with fecal drainage admitted for perirectal perforation/cellulitis # perirectal perforation/cellulitis - tolerating diet , fecal drainage through open perianal wound , cellulitis resolved - no surgery due to high risk - s/p iv vanco + pip/missael subsequently transitioned to meropenem to cover ESBL UTI, received 8 days of iv meropenem, status post 9 days of Augmentin ended stable with no fevers , normal WBC # acute toxic metabolic encephalopathy likely due to baclofen and concomitant use of oxycodone Resolved /baclofen discontinued # intermittent hiccups of several day duration, Resolved continue Prilosec # urinary discomfort/retention - prn bladder scan, straight cath PRN # chronic HFrEF/NSVT/ AF - compensated CHF with no exacerbation at time time - Echo showed EF of 15-20% , significant dilatation of ascending aortic size at 5 cm.? Unknown coronary status.? - Lasix and enalpril dcd due to hypotension, reassess prior to discharge - continue carvedilol, rivaroxaban, low-dose spironolactone, on room air finger oximetry 100% # Perioperative cardiac exam - Overall, he is at high risk for any surgical procedures for perforation of rectum.? is a definite possibility, therefore cardio rec.to proceed only if absolutely necessary and life saving.? Due to multiple cardiac complications surgeon declined surgery # ESBL UTI [Klebsiella pneumoniae] - treated with meropenem for 8 days # CKD3/ acute metabolic acidosis, - resolved, received Sodium bicarb # hyperK, mild ,resoved # dementia, unspecified- -at baseline confusion, no behavioral disturbance # VTE ppx: rivaroxaban PT recommends STR In my clinical judgment, the patient requires continued inpatient hospitalization for the following reasons: Waiting for safe discharge to rehab awaiting authorization Quality Stroke Does the patient have a stroke diagnosis?: No VTE Prior VTE?: No VTE Risk Level:: Medical - moderate - high VTE Device Contraindication: N/A - Device Ordered VTE Drug Contraindication: Treatment Not Indicated
[2022-03-11] MEDS: 0.9 % Sodium Chloride Flush 3 ML SYRINGE IVFLUSH ×3 (09:01→20:50)
[2022-03-11] MEDS: Rivaroxaban 15 MG TABLET PO (15:52)
[2022-03-12 02:26] VITALS: BP 144/55; PULSE 89; RESP 16; TEMP 36.8; O2SAT 98
--- NOTE | 2022-03-12 05:46 | PM.EVENT ---
Event Note Date of Service: 03/12/22 Event Note: pt tachypneic. checked rectal temp found to be high, will tx with tylenol. will obtain rpt cultures, lactic acid
[2022-03-12] MEDS: Omeprazole 20 MG CAPSULE.DR PO (05:57)
[2022-03-12 08:00] VITALS: BP 131/88; PULSE 108; RESP 20; TEMP 37.1; O2SAT 97
[2022-03-12] MEDS: Spironolactone 25 MG TABLET 12.5 MG PO (09:37)
[2022-03-12] MEDS: Tamsulosin HCL 0.4 MG CAPSULE PO (09:38)
[2022-03-12] MEDS: carvediloL 6.25 MG TABLET PO ×2 (09:38→20:05)
[2022-03-12] MEDS: Folic Acid 1 MG TABLET PO (09:38)
[2022-03-12] MEDS: 0.9 % Sodium Chloride Flush 3 ML SYRINGE IVFLUSH ×3 (09:39→20:05)
[2022-03-12] MEDS: Nystatin Powder 15 GM BOTTLE 1 APPL TOPICAL ×3 (09:43→20:05)
--- NOTE | 2022-03-12 09:47 | HO.PM.IMPN ---
Subjective Subjective Date of Service: 03/12/22 Interval History: no acute complaints, patient is waiting for rehab placement, admitted for perianal wound with rectal perforation continue to have stool leakage,, patient remained pleasantly confused. Review of Systems Review of Systems: Yes all other systems are reviewed and are negative Physical Exam Vital Signs: Vital Signs: Last Vital Signs Temp 98.7 F 03/12/22 08:00 Pulse 108 H 03/12/22 08:00 Resp 20 03/12/22 08:00 BP 131/88 03/12/22 08:00 Pulse Ox 97 03/12/22 08:00 O2 Del Method 03/12/22 08:00 O2 Flow Rate 3 03/10/22 05:12 BMI result Body Mass Index 26.4 Const: Other: General? resting comfortably in no acute distress.? Neck supple no JVD. CVS? regular rate rhythm, Respiratory lungs clear to auscultation, no respiratory distress, no wheeze, no rhonchi. Gastrointestinal abdomen soft, nontender, bowel sounds audible, no guarding , no rigidity. Extremities no? edema. Rectal examination open wound perianal area with drainage of soft stool, mild surrounding redness Neuro nonfocal, moving all 4 extremity, speech clear. Skin no rash Psych appropriate affect Objective Data Active Medications Acetaminophen (Acetaminophen 325 Mg Tablet) 650 mg PO Q6H PRN PRN Reason: Pain, Mild (Pain Scale 1-3) Last Admin: 03/11/22 15:52 Dose: 650 mg Documented By: COTCATRACHO Benzonatate (Benzonatate 100 Mg Capsule) 100 mg PO TID PRN PRN Reason: Cough Last Admin: 02/22/22 16:03 Dose: 100 mg Documented By: BOGDAN Carvedilol (Carvedilol 6.25 Mg Tablet) 6.25 mg PO BID [facility]; Protocol Last Admin: 03/12/22 09:38 Dose: 6.25 mg Documented By: KERRIE Folic Acid (Folic Acid 1 Mg Tablet) 1 mg PO DAILY [facility] Last Admin: 03/12/22 09:38 Dose: 1 mg Documented By: KERRIE Melatonin (Melatonin 3 Mg Tablet) 3 mg PO BEDTIME PRN PRN Reason: Insomnia Last Admin: 03/07/22 21:17 Dose: 3 mg Documented By: MILAD Nystatin (Nystatin Powder 15 Gm Bottle) 1 appl TOPICAL TID [facility]; Protocol Last Admin: 03/12/22 09:43 Dose: 1 appl Documented By: KERRIE Omeprazole (Omeprazole 20 Mg Capsule.) 20 mg PO DAILY@0630 [facility] Last Admin: 03/12/22 05:57 Dose: 20 mg Documented By: JOAQUINORALB Ondansetron HCl (Ondansetron Hcl 4 Mg/2 Ml Vial) 4 mg IVPUSH Q8H PRN PRN Reason: Nausea and Vomiting Last Admin: 02/27/22 14:51 Dose: 4 mg Documented By: JEAN Pharmacy Consult (Consult Rx Perform Med Rec) 1 each MISCELLANE ONCE PRN PRN Reason: Consult order Rivaroxaban (Rivaroxaban 15 Mg Tablet) 15 mg PO DAILY@1700 [facility] Last Admin: 03/11/22 15:52 Dose: 15 mg Documented By: COTEMA Sodium Chloride (0.9 % Sodium Chloride Flush 3 Ml Syringe) 3 ml IVFLUSH QSHIFT [facility] Last Admin: 03/12/22 09:39 Dose: 3 ml Documented By: KERRIE Spironolactone (Spironolactone 25 Mg Tablet) 12.5 mg PO DAILY [facility]; Protocol Last Admin: 03/12/22 09:37 Dose: 12.5 mg Documented By: KERRIE Tamsulosin HCl (Tamsulosin Hcl 0.4 Mg Capsule) 0.4 mg PO DAILY [facility] Last Admin: 03/12/22 09:38 Dose: 0.4 mg Documented By: KERRIE Labs CBC & Chem 7: 02/26/22 14:36 03/06/22 06:05 Assessment and Plan (1) Urinary tract infection due to ESBL Klebsiella: Status: Acute (2) Perirectal cellulitis: Status: Acute (3) Preoperative cardiovascular examination: Status: Acute (4) Traumatic perforation of rectum: Status: Acute Plan 77yo M with hx chronic HFrEF, AF s/p PPM 2019 AC on rivaroxaban, CKD3, unspecified dementia, brought in after falling in the [place] while intoxicated and developing an open anal wound with fecal drainage admitted for perirectal perforation/cellulitis # perirectal perforation/cellulitis - tolerating diet , fecal drainage through open perianal wound , cellulitis resolved - no surgery due to high risk - s/p iv vanco + pip/missael subsequently transitioned to meropenem to cover ESBL UTI, received 8 days of iv meropenem, status post 9 days of Augmentin ended stable with no fevers , normal WBC # acute toxic metabolic encephalopathy likely due to baclofen and concomitant use of oxycodone Resolved /baclofen discontinued # intermittent hiccups of several day duration, Resolved continue Prilosec # urinary discomfort/retention - prn bladder scan, straight cath PRN # chronic HFrEF/NSVT/ AF - compensated CHF with no exacerbation at time time - Echo showed EF of 15-20% , significant dilatation of ascending aortic size at 5 cm.? Unknown coronary status.? - Lasix and enalpril dcd due to hypotension, reassess prior to discharge - continue carvedilol, rivaroxaban, low-dose spironolactone, on room air finger oximetry 100% # Perioperative cardiac exam - Overall, he is at high risk for any surgical procedures for perforation of rectum.? is a definite possibility, therefore cardio rec.to proceed only if absolutely necessary and life saving.? Due to multiple cardiac complications surgeon declined surgery # ESBL UTI [Klebsiella pneumoniae] - treated with meropenem for 8 days # CKD3/ acute metabolic acidosis, - resolved, received Sodium bicarb # hyperK, mild ,resoved # dementia, unspecified- -at baseline confusion, no behavioral disturbance # VTE ppx: rivaroxaban PT recommends STR In my clinical judgment, the patient requires continued inpatient hospitalization for the following reasons: Waiting for safe discharge to rehab awaiting authorization Quality Stroke Does the patient have a stroke diagnosis?: No VTE Prior VTE?: No VTE Risk Level:: Medical - moderate - high VTE Device Contraindication: N/A - Device Ordered VTE Drug Contraindication: Treatment Not Indicated
[2022-03-12 11:18] VITALS: BP 121/82; PULSE 92; RESP 20; TEMP 37; O2SAT 97
[2022-03-12] MEDS: Acetaminophen 325 MG TABLET 650 MG PO ×2 (11:32→17:12)
[2022-03-12 15:03] VITALS: BP 105/75; PULSE 88; RESP 16; TEMP 36.4; O2SAT 100
[2022-03-12] MEDS: Rivaroxaban 15 MG TABLET PO (17:12)
[2022-03-12 20:00] VITALS: BP 129/62; PULSE 77; RESP 18; TEMP 36.4; O2SAT 99
[2022-03-12 23:37] VITALS: BP 115/79; PULSE 107; RESP 16; TEMP 36; O2SAT 99
--- NOTE | 2022-03-13 | ECG_ITS ---
Test Reason : Chest pain Blood Pressure : / mmHG Vent. Rate : 093 BPM Atrial Rate : 000 BPM P-R Int : 000 ms QRS Dur : 140 ms QT Int : 394 ms P-R-T Axes : 000 -67 115 degrees QTc Int : 489 ms Atrial fibrillation with premature ventricular or aberrantly conducted complexes Left anterior fascicular block Non-specific intra-ventricular conduction block Minimal voltage criteria for LVH, may be normal variant ( [place] product ) T wave abnormality, consider lateral ischemia Abnormal ECG When compared with ECG of 17-FEB-2022 12:40, Atrial fibrillation has replaced Electronic ventricular pacemaker Referred By: Rodríguez Díaz Electronically Signed By:JAVY CRESPO MD
[2022-03-13 03:37] VITALS: BP 98/72; PULSE 74; RESP 14; TEMP 36.3; O2SAT 93
[2022-03-13] MEDS: Omeprazole 20 MG CAPSULE.DR PO (05:37)
[2022-03-13 07:47] VITALS: BP 104/85; PULSE 74; RESP 18; TEMP 36.7; O2SAT 95
[2022-03-13] MEDS: Acetaminophen 325 MG TABLET 650 MG PO ×2 (09:15→20:48)
[2022-03-13] MEDS: Spironolactone 25 MG TABLET 12.5 MG PO (09:17)
[2022-03-13] MEDS: Folic Acid 1 MG TABLET PO (09:18)
[2022-03-13] MEDS: Tamsulosin HCL 0.4 MG CAPSULE PO (09:18)
[2022-03-13] MEDS: carvediloL 6.25 MG TABLET PO ×2 (09:18→19:58)
[2022-03-13] MEDS: Nystatin Powder 15 GM BOTTLE 1 APPL TOPICAL ×3 (09:19→19:59)
[2022-03-13] MEDS: 0.9 % Sodium Chloride Flush 3 ML SYRINGE IVFLUSH ×3 (09:20→19:59)
--- NOTE | 2022-03-13 10:11 | MHC.CM.PN ---
NO BED OFFERS OF THIS NOTE. [facility] ADDED TO REFERRAL LIST
[2022-03-13] MEDS: oxyCODONE HCl Immed Release 5 MG TABLET PO ×2 (11:12→20:47)
[2022-03-13 11:26] VITALS: BP 105/68; PULSE 93; RESP 18; TEMP 36.7; O2SAT 98
--- NOTE | 2022-03-13 14:05 | P.PNIM_ITS ---
Subjective Subjective Date of Service: 03/13/22 Interval History: patient complaining of pain in buttock requesting for strong pain medications , no acute overnight events no fevers no chills , no other acute issues overnight. Being followed for placement Review of Systems Review of Systems: Yes all other systems are reviewed and are negative Physical Exam Vital Signs: Vital Signs: Last Vital Signs Temp 98.1 F 03/13/22 11:26 Pulse 93 03/13/22 11:26 Resp 18 03/13/22 11:26 BP 105/68 03/13/22 11:26 Pulse Ox 98 03/13/22 11:26 O2 Del Method 03/13/22 11:26 O2 Flow Rate 3 03/10/22 05:12 BMI result Body Mass Index 26.4 Const: Other: General? resting comfortably in no acute distress.? Neck supple no JVD. CVS? regular rate rhythm, Respiratory lungs clear to auscultation, no respiratory distress, no wheeze, no rhonchi. Gastrointestinal abdomen soft, nontender, bowel sounds audible, no guarding , no rigidity. Extremities no? edema. Rectal examination open wound perianal area with drainage of soft stool, mild surrounding redness Neuro nonfocal, moving all 4 extremity, speech clear. Skin no rash Psych appropriate affect Objective Data Active Medications Acetaminophen (Acetaminophen 325 Mg Tablet) 650 mg PO Q6H PRN PRN Reason: Pain, Mild (Pain Scale 1-3) Last Admin: 03/13/22 09:15 Dose: 650 mg Documented By: KERRIE Benzonatate (Benzonatate 100 Mg Capsule) 100 mg PO TID PRN PRN Reason: Cough Last Admin: 02/22/22 16:03 Dose: 100 mg Documented By: BOGDAN Carvedilol (Carvedilol 6.25 Mg Tablet) 6.25 mg PO BID [facility]; Protocol Last Admin: 03/13/22 09:18 Dose: 6.25 mg Documented By: KERRIE Folic Acid (Folic Acid 1 Mg Tablet) 1 mg PO DAILY [facility] Last Admin: 03/13/22 09:18 Dose: 1 mg Documented By: KERRIE Melatonin (Melatonin 3 Mg Tablet) 3 mg PO BEDTIME PRN PRN Reason: Insomnia Last Admin: 03/07/22 21:17 Dose: 3 mg Documented By: MILAD Nystatin (Nystatin Powder 15 Gm Bottle) 1 appl TOPICAL TID [facility]; Protocol Last Admin: 03/13/22 09:19 Dose: 1 appl Documented By: KERRIE Omeprazole (Omeprazole 20 Mg Capsule.) 20 mg PO DAILY@0630 [facility] Last Admin: 03/13/22 05:37 Dose: 20 mg Documented By: JOAQUINORALB Ondansetron HCl (Ondansetron Hcl 4 Mg/2 Ml Vial) 4 mg IVPUSH Q8H PRN PRN Reason: Nausea and Vomiting Last Admin: 02/27/22 14:51 Dose: 4 mg Documented By: JEAN Oxycodone HCl (Oxycodone Hcl Immed Release 5 Mg Tablet) 5 mg PO Q6H PRN PRN Reason: Pain, Moderate (Pain Scale 4-6 Last Admin: 03/13/22 11:12 Dose: 5 mg Documented By: KERRIE Pharmacy Consult (Consult Rx Perform Med Rec) 1 each MISCELLANE ONCE PRN PRN Reason: Consult order Rivaroxaban (Rivaroxaban 15 Mg Tablet) 15 mg PO DAILY@1700 [facility] Last Admin: 03/12/22 17:12 Dose: 15 mg Documented By: KERRIE Sodium Chloride (0.9 % Sodium Chloride Flush 3 Ml Syringe) 3 ml IVFLUSH QSHIFT [facility] Last Admin: 03/13/22 09:20 Dose: 3 ml Documented By: KERRIE Spironolactone (Spironolactone 25 Mg Tablet) 12.5 mg PO DAILY [facility]; Protocol Last Admin: 03/13/22 09:17 Dose: 12.5 mg Documented By: KERRIE Tamsulosin HCl (Tamsulosin Hcl 0.4 Mg Capsule) 0.4 mg PO DAILY [facility] Last Admin: 03/13/22 09:18 Dose: 0.4 mg Documented By: KERRIE Labs CBC & Chem 7: 02/26/22 14:36 03/06/22 06:05 Assessment and Plan (1) Urinary tract infection due to ESBL Klebsiella: Status: Acute (2) Perirectal cellulitis: Status: Acute (3) Preoperative cardiovascular examination: Status: Acute (4) Traumatic perforation of rectum: Status: Acute Plan 77yo M with hx chronic HFrEF, AF s/p PPM 2019 AC on rivaroxaban, CKD3, unspecified dementia, brought in after [place] the [place] while intoxicated and developing an open anal wound with fecal drainage admitted for perirectal perforation/cellulitis # perirectal perforation/cellulitis - tolerating diet , fecal drainage through open perianal wound , cellulitis resolved - no surgery due to high risk - s/p iv vanco + pip/missael subsequently transitioned to meropenem to cover ESBL UTI, received 8 days of iv meropenem, status post 9 days of Augmentin ended stable with no fevers , normal WBC continue Tylenol and add oxycodone for buttock pain due to perianal wound # acute toxic metabolic encephalopathy likely due to baclofen and concomitant use of oxycodone Resolved /baclofen discontinued # intermittent hiccups of several day duration, Resolved continue Prilosec # urinary discomfort/retention - prn bladder scan, straight cath PRN # chronic HFrEF/NSVT/ AF - compensated CHF with no exacerbation at time time - Echo showed EF of 15-20% , significant dilatation of ascending aortic size at 5 cm.? Unknown coronary status.? - Lasix and enalpril dcd due to hypotension, reassess prior to discharge - continue carvedilol, rivaroxaban, low-dose spironolactone, on room air finger oximetry 100% # Perioperative cardiac exam - Overall, he is at high risk for any surgical procedures for perforation of rectum.? is a definite possibility, therefore cardio rec.to proceed only if absolutely necessary and life saving.? Due to multiple cardiac complications surgeon declined surgery # ESBL UTI [Klebsiella pneumoniae] - treated with meropenem for 8 days # CKD3/ acute metabolic acidosis, - resolved, received Sodium bicarb # hyperK, mild ,resoved # dementia, unspecified- -at baseline confusion, no behavioral disturbance # VTE ppx: rivaroxaban PT recommends STR In my clinical judgment, the patient requires continued inpatient hospitalization for the following reasons: Waiting for safe discharge to rehab awaiting authorization Quality Stroke Does the patient have a stroke diagnosis?: No VTE Prior VTE?: No VTE Risk Level:: Medical - moderate - high VTE Device Contraindication: N/A - Device Ordered VTE Drug Contraindication: Treatment Not Indicated
[2022-03-13 15:07] VITALS: BP 106/76; PULSE 100; RESP 19; TEMP 36.6; O2SAT 99
[2022-03-13] MEDS: Rivaroxaban 15 MG TABLET PO (16:49)
[2022-03-13 19:11] VITALS: BP 120/70; PULSE 104; RESP 18; TEMP 37.3; O2SAT 97
[2022-03-13] MEDS: Melatonin 3 MG TABLET PO (20:48)
[2022-03-13 22:30] LABS: Troponin-I High Sensitivity 28.8 ng/L (<3.5-35.0)
--- NOTE | 2022-03-13 23:01 | PC.NURSE ---
2140 pt c/o 10/10 left sided chest pain that comes and goes described as pressure.Bp-90/60 HR-105. notified ordered stat EKG and troponin 28.8.resting in bed no further c/o chest pain.
[2022-03-14] VITALS: BP 98/54; PULSE 90; RESP 17; TEMP 36.2; O2SAT 95
[2022-03-14 04:00] VITALS: BP 100/62; PULSE 85; RESP 17; TEMP 36.4; O2SAT 95
[2022-03-14] MEDS: Omeprazole 20 MG CAPSULE.DR PO (05:50)
[2022-03-14 07:40] VITALS: BP 105/68; PULSE 89; RESP 18; TEMP 37.2; O2SAT 99
[2022-03-14] MEDS: Tamsulosin HCL 0.4 MG CAPSULE PO (07:54)
[2022-03-14] MEDS: Folic Acid 1 MG TABLET PO (07:54)
[2022-03-14] MEDS: carvediloL 6.25 MG TABLET PO ×2 (07:55→19:57)
[2022-03-14] MEDS: Spironolactone 25 MG TABLET 12.5 MG PO (07:55)
[2022-03-14] MEDS: Nystatin Powder 15 GM BOTTLE 1 APPL TOPICAL ×3 (07:56→20:11)
[2022-03-14] MEDS: 0.9 % Sodium Chloride Flush 3 ML SYRINGE IVFLUSH ×3 (07:59→20:01)
[2022-03-14 11:22] VITALS: BP 112/75; PULSE 83; RESP 18; TEMP 37; O2SAT 97
[2022-03-14] MEDS: oxyCODONE HCl Immed Release 5 MG TABLET PO (12:35)
[2022-03-14] MEDS: Acetaminophen 325 MG TABLET 650 MG PO (12:35)
--- NOTE | 2022-03-14 13:45 | P.PNIM_ITS ---
Subjective Subjective Date of Service: 03/14/22 Interval History: No acute issues overnight; resting quietly in bed Review of Systems Denies chest pain Denies shortness of breath Denies nausea vomiting diarrhea Denies fever chills Physical Exam Vital Signs: Vital Signs: Last Vital Signs Temp 98.6 F 03/14/22 11: Pulse 83 03/14/22 11:22 Resp 18 03/14/22 11:22 BP 112/75 03/14/22 11:22 Pulse Ox 97 03/14/22 11:22 O2 Del Method 03/14/22 11:22 O2 Flow Rate 3 03/10/22 05:12 BMI result Body Mass Index 26.4 Const: Other: Awake alert no acute distress Resp: Other: Clear to auscultation bilaterally no rales rhonchi or wheezes Cardio: Other: No S4; positive S1-S2; no S3 murmurs rubs or gallops GI: Other: Soft nontender nondistended normoactive bowel sounds : Other: open wound perianal area with drainage of soft stool, mild surrounding redness Extrem: Other: No edema bilaterally Objective Data Active Medications Acetaminophen (Acetaminophen 325 Mg Tablet) 650 mg PO Q6H PRN PRN Reason: Pain, Mild (Pain Scale 1-3) Last Admin: 03/14/22 12:35 Dose: 650 mg Documented By: ALISSON Benzonatate (Benzonatate 100 Mg Capsule) 100 mg PO TID PRN PRN Reason: Cough Last Admin: 02/22/22 16:03 Dose: 100 mg Documented By: BOGDAN Carvedilol (Carvedilol 6.25 Mg Tablet) 6.25 mg PO BID [facility]; Protocol Last Admin: 03/14/22 07:55 Dose: 6.25 mg Documented By: ALISSON Folic Acid (Folic Acid 1 Mg Tablet) 1 mg PO DAILY [facility] Last Admin: 03/14/22 07:54 Dose: 1 mg Documented By: ALISSON Melatonin (Melatonin 3 Mg Tablet) 3 mg PO BEDTIME PRN PRN Reason: Insomnia Last Admin: 03/13/22 20:48 Dose: 3 mg Documented By: GABE Nystatin (Nystatin Powder 15 Gm Bottle) 1 appl TOPICAL TID [facility]; Protocol Last Admin: 03/14/22 07:56 Dose: 1 appl Documented By: ALISSON Omeprazole (Omeprazole 20 Mg Capsule.) 20 mg PO DAILY@0630 [facility] Last Admin: 03/14/22 05:50 Dose: 20 mg Documented By: GABE Ondansetron HCl (Ondansetron Hcl 4 Mg/2 Ml Vial) 4 mg IVPUSH Q8H PRN PRN Reason: Nausea and Vomiting Last Admin: 02/27/22 14:51 Dose: 4 mg Documented By: JEAN Oxycodone HCl (Oxycodone Hcl Immed Release 5 Mg Tablet) 5 mg PO Q6H PRN PRN Reason: Pain, Moderate (Pain Scale 4-6 Last Admin: 03/14/22 12:35 Dose: 5 mg Documented By: ALISSON Pharmacy Consult (Consult Rx Perform Med Rec) 1 each MISCELLANE ONCE PRN PRN Reason: Consult order Rivaroxaban (Rivaroxaban 15 Mg Tablet) 15 mg PO DAILY@1700 [facility] Last Admin: 03/13/22 16:49 Dose: 15 mg Documented By: KERRIE Sodium Chloride (0.9 % Sodium Chloride Flush 3 Ml Syringe) 3 ml IVFLUSH QSHIFT [facility] Last Admin: 03/14/22 07:59 Dose: 3 ml Documented By: ALISSON Spironolactone (Spironolactone 25 Mg Tablet) 12.5 mg PO DAILY [facility]; Protocol Last Admin: 03/14/22 07:55 Dose: 12.5 mg Documented By: ALISSON Tamsulosin HCl (Tamsulosin Hcl 0.4 Mg Capsule) 0.4 mg PO DAILY [facility] Last Admin: 03/14/22 07:54 Dose: 0.4 mg Documented By: ALISSON Labs CBC & Chem 7: 02/26/22 14:36 03/06/22 06:05 Labs: Laboratory Results - last 24 hr 03/13/22 21:55 Troponin I High Sens 28.8 Assessment and Plan (1) Perirectal cellulitis: Status: Acute (2) Afib: Status: Acute (3) (HFpEF) heart failure with preserved ejection fraction: Status: Acute Plan 77yo M with hx chronic HFrEF, AF s/p PPM 2019 AC on rivaroxaban, CKD3, unspecified dementia, brought in after falling [place] the [place] while intoxicated and developing an open anal wound with fecal drainage admitted for perirectal perforation/cellulitis 1.Perirectal perforation/cellulitis - tolerating diet , fecal drainage through open perianal wound...cellulitis resolved - s/p iv vanco + pip/missael....meropenem to cover ESBL UTI..16 2.Urinary retention - prn bladder scan, straight cath PRN 3.Chronic HFpEF/CHronic AF - compensated CHF with no exacerbation at time time - Echo showed EF of 15-20% , significant dilatation of ascending aortic size at 5 cm.? - carvedilol/ rivaroxaban/spironolactone -follow clinically adjust as indicated 4.CKD3 -follow renals/divalents Rivaroxaban DNR/DNI Patient requires ongoing hospitalization to secure safe discharge to [facility] Stroke Does the patient have a stroke diagnosis?: No VTE Prior VTE?: No VTE Risk Level:: Medical - moderate - high VTE Device Contraindication: N/A - Device Ordered VTE Drug Contraindication: Treatment Not Indicated
[2022-03-14] MEDS: Rivaroxaban 15 MG TABLET PO (17:08)
[2022-03-14 19:22] VITALS: BP 124/86; PULSE 91; RESP 18; TEMP 36.9; O2SAT 98
[2022-03-14] MEDS: Melatonin 3 MG TABLET PO (20:11)
[2022-03-15] VITALS (7 sets, daily range): BP systolic 100–130; BP diastolic 62–86; PULSE 78–115; RESP 16–18; TEMP 36.4–37; O2SAT 96–98
[2022-03-15] MEDS: Omeprazole 20 MG CAPSULE.DR PO (06:22)
[2022-03-15 06:38] LABS: MANUAL DIFF FLAG NO
[2022-03-15 06:44] LABS: Basophils Percent Auto 0.5 % (0-2); Eosinophils Percent Auto 0.5 % (0-4); Hematocrit 30.7 % (42.0-52.0); Hemoglobin 9.9 g/dl (14.0-18.0); Imm Gran Abs Auto 0.08 X10*3/uL (0.00-0.03); Lymphocytes Absolute Auto 2.4 X10*3/uL (1.2-4.9); Lymphocytes Percent Auto 28.9 % (20-40); Mean Corpuscular HGB Conc 32.2 g/dl (31.0-36.0); Mean Corpuscular Hemoglobin 28.5 pg (27.0-33.0); Mean Corpuscular Volume 88.5 fL (80.0-98.0); Mean Platelet Volume 9.4 fL (9.4-12.4); Monocytes Absolute Auto 0.9 X10*3/uL (0.1-1.2); Neutrophils Absolute Auto 4.8 x10*3/uL (2.0-8.3); Neutrophils Percent Auto 58.1 % (45-73); Platelet Count 285 X10*3/uL (160-400); Red Blood Count 3.47 X10*6/uL (4.60-5.80); Red Cell Distribution Width 18.1 % (11.0-16.0); White Blood Count 8.3 X10*3/uL (4.8-10.8)
[2022-03-15 07:17] LABS: Alanine Aminotransferase < 6 U/L (0-40); Albumin Level 2.8 g/dL (3.5-5.0); Alkaline Phosphatase 86 U/L (39-117); Anion Gap 12 (12-20); Aspartate Amino Transferase 10 U/L (5-37); Blood Urea Nitrogen 24 mg/dL (9-16); Calcium 8.5 mg/dL (8.4-10.2); Carbon Dioxide 21 mmol/L (22-29); Chloride 103 mmol/L (96-108); Creatinine Clr Calc Pharmacy 52.7; Estimated Glomerular Filt Rate 58; Glucose Fasting 106 mg/dL (60-99); Sodium 131 mmol/L (135-145); Total Protein 6.2 g/dL (6.5-8.0)
[2022-03-15] MEDS: 0.9 % Sodium Chloride Flush 3 ML SYRINGE IVFLUSH ×3 (09:41→21:22)
[2022-03-15] MEDS: Tamsulosin HCL 0.4 MG CAPSULE PO (09:41)
[2022-03-15] MEDS: carvediloL 6.25 MG TABLET PO ×2 (09:41→21:22)
[2022-03-15] MEDS: Spironolactone 25 MG TABLET 12.5 MG PO (09:41)
[2022-03-15] MEDS: Folic Acid 1 MG TABLET PO (09:41)
[2022-03-15] MEDS: oxyCODONE HCl Immed Release 5 MG TABLET PO ×3 (09:41→21:22)
--- NOTE | 2022-03-15 12:32 | HO.PM.IMPN ---
Subjective Subjective Date of Service: 03/15/22 Interval History: No acute issues overnight. Pain control adequate Review of Systems Denies chest pain Denies shortness of breath Denies nausea vomiting diarrhea Denies fever chills Physical Exam Vital Signs: Vital Signs: Last Vital Signs Temp 98.6 F 03/15/22 11:55 Pulse 97 03/15/22 11:55 Resp 18 03/15/22 11:55 BP 101/86 03/15/22 11:55 Pulse Ox 98 03/15/22 11:55 O2 Del Method 03/15/22 11:55 O2 Flow Rate 89 03/14/22 19:22 BMI result Body Mass Index 26.4 Const: Other: Awake alert no acute distress Resp: Other: Clear to auscultation bilaterally no rales rhonchi or wheezes Cardio: Other: No S4; positive S1-S2; no S3 murmurs rubs or gallops GI: Other: Soft nontender nondistended normoactive bowel sounds : Other: open wound perianal area with drainage of soft stool, mild surrounding redness Extrem: Other: No edema bilaterally Objective Data Active Medications Acetaminophen (Acetaminophen 325 Mg Tablet) 650 mg PO Q6H PRN PRN Reason: Pain, Mild (Pain Scale 1-3) Last Admin: 03/14/22 12:35 Dose: 650 mg Documented By: ALISSON Benzonatate (Benzonatate 100 Mg Capsule) 100 mg PO TID PRN PRN Reason: Cough Last Admin: 02/22/22 16:03 Dose: 100 mg Documented By: BOGDAN Carvedilol (Carvedilol 6.25 Mg Tablet) 6.25 mg PO BID [facility]; Protocol Last Admin: 03/15/22 09:41 Dose: 6.25 mg Documented By: KERRIE Folic Acid (Folic Acid 1 Mg Tablet) 1 mg PO DAILY [facility] Last Admin: 03/15/22 09:41 Dose: 1 mg Documented By: KERRIE Melatonin (Melatonin 3 Mg Tablet) 3 mg PO BEDTIME PRN PRN Reason: Insomnia Last Admin: 03/14/22 20:11 Dose: 3 mg Documented By: JAKY Nystatin (Nystatin Powder 15 Gm Bottle) 1 appl TOPICAL TID [facility]; Protocol Last Admin: 03/15/22 09:42 Dose: Not Given Documented By: KERRIE Non-Admin Reason: not available, will contact pharmacy Omeprazole (Omeprazole 20 Mg Benedicto.) 20 mg PO DAILY@0630 [facility] Last Admin: 03/15/22 06:22 Dose: 20 mg Documented By: JAKY Ondansetron HCl (Ondansetron Hcl 4 Mg/2 Ml Vial) 4 mg IVPUSH Q8H PRN PRN Reason: Nausea and Vomiting Last Admin: 02/27/22 14:51 Dose: 4 mg Documented By: JEAN Oxycodone HCl (Oxycodone Hcl Immed Release 5 Mg Tablet) 5 mg PO Q6H PRN PRN Reason: Pain, Moderate (Pain Scale 4-6 Last Admin: 03/15/22 09:41 Dose: 5 mg Documented By: KERRIE Pharmacy Consult (Consult Rx Perform Med Rec) 1 each MISCELLANE ONCE PRN PRN Reason: Consult order Rivaroxaban (Rivaroxaban 15 Mg Tablet) 15 mg PO DAILY@1700 [facility] Last Admin: 03/14/22 17:08 Dose: 15 mg Documented By: ALISSON Sodium Chloride (0.9 % Sodium Chloride Flush 3 Ml Syringe) 3 ml IVFLUSH QSHIFT [facility] Last Admin: 03/15/22 09:41 Dose: 3 ml Documented By: KERRIE Spironolactone (Spironolactone 25 Mg Tablet) 12.5 mg PO DAILY [facility]; Protocol Last Admin: 03/15/22 09:41 Dose: 12.5 mg Documented By: KERRIE Tamsulosin HCl (Tamsulosin Hcl 0.4 Mg Capsule) 0.4 mg PO DAILY [facility] Last Admin: 03/15/22 09:41 Dose: 0.4 mg Documented By: KERRIE Labs CBC & Chem 7: 03/15/22 06:34 03/15/22 06:34 Labs: Laboratory Results - last 24 hr 03/15/22 03/15/22 06:34 06:34 MCV 88.5 MCH 28.5 MCHC 32.2 RDW 18.1 H Plt Count 285 MPV 9.4 Immature Gran % (Auto) 1.0 H Neut % (Auto) 58.1 Lymph % (Auto) 28.9 [place] % (Auto) 11.0 Eos % (Auto) 0.5 Baso % (Auto) 0.5 Lymph # (Auto) 2.4 [place] # (Auto) 0.9 Eos # (Auto) 0.0 Baso # (Auto) 0.0 Abs Immat Gran (auto) 0.08 H Absolute Neuts (auto) 4.8 Absolute Nucleated RBC 0.000 Nucleated RBC % (auto) 0.0 Anion Gap 12 Estim Creat Clear Calc 52.7 Estimated GFR 58 Fasting Glucose 106 H Calcium 8.5 Total Bilirubin 1.0 AST 10 ALT < 6 Alkaline Phosphatase 86 Total Protein 6.2 L Albumin 2.8 L Assessment and Plan (1) Perirectal cellulitis: Status: Acute (2) Chronic a-fib: Status: Acute (3) (HFpEF) heart failure with preserved ejection fraction: Status: Acute Plan 77yo M with hx chronic HFrEF, AF s/p PPM 2019 AC on rivaroxaban, CKD3, unspecified dementia, brought in after falling [place] the [place] while intoxicated and developing an open anal wound with fecal drainage admitted for perirectal perforation/cellulitis 1.Perirectal perforation/cellulitis - tolerating diet , fecal drainage through open perianal wound...cellulitis resolved - s/p iv vanco + pip/missael....meropenem to cover ESBL UTI..16... Completed 2.Urinary retention - prn bladder scan, straight cath PRN 3.Chronic HFpEF/CHronic AF - compensated CHF with no exacerbation at time time - Echo showed EF of 15-20% , significant dilatation of ascending aortic size at 5 cm.? - carvedilol/ rivaroxaban/spironolactone -follow clinically adjust as indicated 4.CKD3 -follow renals/divalents Rivaroxaban DNR/DNI Patient requires ongoing hospitalization to secure safe discharge to [facility] Quality Stroke Does the patient have a stroke diagnosis?: No VTE Prior VTE?: No VTE Risk Level:: Medical - moderate - high VTE Device Contraindication: N/A - Device Ordered VTE Drug Contraindication: Treatment Not Indicated
[2022-03-15] MEDS: Acetaminophen 325 MG TABLET 650 MG PO ×2 (14:40→21:22)
[2022-03-15] MEDS: Nystatin Powder 15 GM BOTTLE 1 APPL TOPICAL ×2 (14:41→21:24)
[2022-03-15] MEDS: Rivaroxaban 15 MG TABLET PO (17:40)
[2022-03-15] MEDS: Melatonin 3 MG TABLET PO (21:22)
[2022-03-16] MEDS: Omeprazole 20 MG CAPSULE.DR PO (06:03)
[2022-03-16] MEDS: oxyCODONE HCl Immed Release 5 MG TABLET PO ×3 (06:03→21:29)
[2022-03-16 06:51] VITALS: BP 132/64; PULSE 72; RESP 18; TEMP 36.6; O2SAT 95
[2022-03-16] MEDS: Spironolactone 25 MG TABLET 12.5 MG PO (10:04)
[2022-03-16] MEDS: carvediloL 6.25 MG TABLET PO ×2 (10:04→20:00)
[2022-03-16] MEDS: Folic Acid 1 MG TABLET PO (10:04)
[2022-03-16] MEDS: Tamsulosin HCL 0.4 MG CAPSULE PO (10:04)
[2022-03-16] MEDS: 0.9 % Sodium Chloride Flush 3 ML SYRINGE IVFLUSH ×3 (10:05→20:01)
[2022-03-16] MEDS: Nystatin Powder 15 GM BOTTLE 1 APPL TOPICAL ×3 (10:05→20:01)
--- NOTE | 2022-03-16 10:20 | HO.PM.IMPN ---
Subjective Subjective Date of Service: 03/16/22 Interval History: No acute issues overnight. Pain control adequate Review of Systems Denies chest pain Denies shortness of breath Denies nausea vomiting diarrhea Denies fever chills Physical Exam Vital Signs: Vital Signs: Last Vital Signs Temp 97.9 F 03/16/22 06:51 Pulse 72 03/16/22 06:51 Resp 18 03/16/22 06:51 BP 132/64 03/16/22 06:51 Pulse Ox 95 03/16/22 06:51 O2 Del Method 03/16/22 06:51 O2 Flow Rate 89 03/14/22 19:22 BMI result Body Mass Index 26.4 Const: Other: Awake alert no acute distress Resp: Other: Clear to auscultation bilaterally no rales rhonchi or wheezes Cardio: Other: No S4; positive S1-S2; no S3 murmurs rubs or gallops GI: Other: Soft nontender nondistended normoactive bowel sounds : Other: open wound perianal area with drainage of soft stool, mild surrounding redness Extrem: Other: No edema bilaterally Objective Data Active Medications Acetaminophen (Acetaminophen 325 Mg Tablet) 650 mg PO Q6H PRN PRN Reason: Pain, Mild (Pain Scale 1-3) Last Admin: 03/15/22 21:22 Dose: 650 mg Documented By: KAYLEEN Benzonatate (Benzonatate 100 Mg Capsule) 100 mg PO TID PRN PRN Reason: Cough Last Admin: 02/22/22 16:03 Dose: 100 mg Documented By: BOGDAN Carvedilol (Carvedilol 6.25 Mg Tablet) 6.25 mg PO BID [facility]; Protocol Last Admin: 03/16/22 10:04 Dose: 6.25 mg Documented By: KERRIE Folic Acid (Folic Acid 1 Mg Tablet) 1 mg PO DAILY [facility] Last Admin: 03/16/22 10:04 Dose: 1 mg Documented By: KERRIE Melatonin (Melatonin 3 Mg Tablet) 3 mg PO BEDTIME PRN PRN Reason: Insomnia Last Admin: 03/15/22 21:22 Dose: 3 mg Documented By: KAYLEEN Nystatin (Nystatin Powder 15 Gm Bottle) 1 appl TOPICAL TID [facility]; Protocol Last Admin: 03/16/22 10:05 Dose: 1 appl Documented By: KERRIE Omeprazole (Omeprazole 20 Mg Capsule.) 20 mg PO DAILY@0630 [facility] Last Admin: 03/16/22 06:03 Dose: 20 mg Documented By: KAYLEEN Ondansetron HCl (Ondansetron Hcl 4 Mg/2 Ml Vial) 4 mg IVPUSH Q8H PRN PRN Reason: Nausea and Vomiting Last Admin: 02/27/22 14:51 Dose: 4 mg Documented By: JEAN Oxycodone HCl (Oxycodone Hcl Immed Release 5 Mg Tablet) 5 mg PO Q6H PRN PRN Reason: Pain, Moderate (Pain Scale 4-6 Last Admin: 03/16/22 06:03 Dose: 5 mg Documented By: KAYLEEN Pharmacy Consult (Consult Rx Perform Med Rec) 1 each MISCELLANE ONCE PRN PRN Reason: Consult order Rivaroxaban (Rivaroxaban 15 Mg Tablet) 15 mg PO DAILY@1700 [facility] Last Admin: 03/15/22 17:40 Dose: 15 mg Documented By: KERRIE Sodium Chloride (0.9 % Sodium Chloride Flush 3 Ml Syringe) 3 ml IVFLUSH QSHIFT [facility] Last Admin: 03/16/22 10:05 Dose: 3 ml Documented By: KERRIE Spironolactone (Spironolactone 25 Mg Tablet) 12.5 mg PO DAILY [facility]; Protocol Last Admin: 03/16/22 10:04 Dose: 12.5 mg Documented By: KERRIE Tamsulosin HCl (Tamsulosin Hcl 0.4 Mg Capsule) 0.4 mg PO DAILY [facility] Last Admin: 03/16/22 10:04 Dose: 0.4 mg Documented By: KERRIE Labs CBC & Chem 7: 03/15/22 06:34 03/15/22 06:34 Assessment and Plan (1) Perirectal cellulitis: Status: Acute (2) (HFpEF) heart failure with preserved ejection fraction: Status: Acute Plan 77yo M with hx chronic HFrEF, AF s/p PPM 2019 AC on rivaroxaban, CKD3, unspecified dementia, brought in after falling [place] the [place] while intoxicated and developing an open anal wound with fecal drainage admitted for perirectal perforation/cellulitis 1.Perirectal perforation/cellulitis - tolerating diet , fecal drainage through open perianal wound...cellulitis resolved 2.Urinary retention - prn bladder scan, straight cath PRN 3.Chronic HFpEF/CHronic AF - compensated CHF with no exacerbation at time time - Echo showed EF of 15-20% , significant dilatation of ascending aortic size at 5 cm.? - carvedilol/ rivaroxaban/spironolactone -follow clinically adjust as indicated 4.CKD3 -follow renals/divalents Rivaroxaban DNR/DNI Patient requires ongoing hospitalization to secure safe discharge to [facility] Stroke Does the patient have a stroke diagnosis?: No VTE Prior VTE?: No VTE Risk Level:: Medical - moderate - high VTE Device Contraindication: N/A - Device Ordered VTE Drug Contraindication: Treatment Not Indicated
[2022-03-16 11:32] VITALS: BP 117/62; PULSE 78; RESP 18; TEMP 37.4; O2SAT 95
[2022-03-16] MEDS: Acetaminophen 325 MG TABLET 650 MG PO ×2 (13:23→21:28)
[2022-03-16 15:22] VITALS: BP 134/72; PULSE 88; RESP 19; TEMP 36.3; O2SAT 97
[2022-03-16] MEDS: Rivaroxaban 15 MG TABLET PO (17:18)
[2022-03-16 20:00] VITALS: BP 120/65; PULSE 100; RESP 17; TEMP 36.4; O2SAT 96
[2022-03-16] MEDS: Melatonin 3 MG TABLET PO (21:28)
[2022-03-17] VITALS: BP 101/84; PULSE 92; RESP 16; TEMP 36.5; O2SAT 95
[2022-03-17 03:35] VITALS: BP 130/64; PULSE 99; RESP 17; TEMP 36.3; O2SAT 95
[2022-03-17] MEDS: Omeprazole 20 MG CAPSULE.DR PO (05:43)
[2022-03-17] MEDS: Acetaminophen 325 MG TABLET 650 MG PO ×2 (06:27→20:34)
[2022-03-17] MEDS: oxyCODONE HCl Immed Release 5 MG TABLET PO ×2 (06:27→16:00)
[2022-03-17 07:01] VITALS: BP 132/64; PULSE 102; RESP 19; TEMP 36.1; O2SAT 93
[2022-03-17 11:00] VITALS: BP 130/72; PULSE 84; RESP 18; TEMP 36.1; O2SAT 98
--- NOTE | 2022-03-17 11:48 | MHC.CM.PN ---
CLINICALS SENT TO [facility]. FACILITY IS FOLLOWING BUT NO BED OFFER YET.
--- NOTE | 2022-03-17 12:18 | HO.PM.IMPN ---
Subjective Subjective Date of Service: 03/17/22 Interval History: No acute issues overnight. Refusing all medicines Review of Systems Denies chest pain Denies shortness of breath Denies nausea vomiting diarrhea Denies fever chills Physical Exam Vital Signs: Vital Signs: Last Vital Signs Temp 96.9 F 03/17/22 11:00 Pulse 84 03/17/22 11:00 Resp 18 03/17/22 11:00 BP 130/72 03/17/22 11:00 Pulse Ox 98 03/17/22 11:00 O2 Del Method 03/17/22 11:00 O2 Flow Rate 89 03/14/22 19:22 BMI result Body Mass Index 26.4 Const: Other: Awake alert no acute distress Resp: Other: Clear to auscultation bilaterally no rales rhonchi or wheezes Cardio: Other: No S4; positive S1-S2; no S3 murmurs rubs or gallops GI: Other: Soft nontender nondistended normoactive bowel sounds : Other: open wound perianal area with drainage of soft stool, mild surrounding redness Extrem: Other: No edema bilaterally Objective Data Active Medications Acetaminophen (Acetaminophen 325 Mg Tablet) 650 mg PO Q6H PRN PRN Reason: Pain, Mild (Pain Scale 1-3) Last Admin: 03/17/22 06:27 Dose: 650 mg Documented By: GABE Benzonatate (Benzonatate 100 Mg Capsule) 100 mg PO TID PRN PRN Reason: Cough Last Admin: 02/22/22 16:03 Dose: 100 mg Documented By: BOGDAN Carvedilol (Carvedilol 6.25 Mg Tablet) 6.25 mg PO BID [facility]; Protocol Last Admin: 03/17/22 09:10 Dose: Not Given Documented By: CLAYTON Non-Admin Reason: Patient Refused Folic Acid (Folic Acid 1 Mg Tablet) 1 mg PO DAILY [facility] Last Admin: 03/17/22 09:10 Dose: Not Given Documented By: CLAYTON Non-Admin Reason: Patient Refused Melatonin (Melatonin 3 Mg Tablet) 3 mg PO BEDTIME PRN PRN Reason: Insomnia Last Admin: 03/16/22 21:28 Dose: 3 mg Documented By: GABE Nystatin (Nystatin Powder 15 Gm Bottle) 1 appl TOPICAL TID [facility]; Protocol Last Admin: 03/17/22 09:10 Dose: Not Given Documented By: CLAYTON Non-Admin Reason: Patient Refused Omeprazole (Omeprazole 20 Mg Capsule.) 20 mg PO DAILY@0630 [facility] Last Admin: 03/17/22 05:43 Dose: 20 mg Documented By: GABE Ondansetron HCl (Ondansetron Hcl 4 Mg/2 Ml Vial) 4 mg IVPUSH Q8H PRN PRN Reason: Nausea and Vomiting Last Admin: 02/27/22 14:51 Dose: 4 mg Documented By: JEAN Oxycodone HCl (Oxycodone Hcl Immed Release 5 Mg Tablet) 5 mg PO Q6H PRN PRN Reason: Pain, Moderate (Pain Scale 4-6 Last Admin: 03/17/22 06:27 Dose: 5 mg Documented By: GABE Pharmacy Consult (Consult Rx Perform Med Rec) 1 each MISCELLANE ONCE PRN PRN Reason: Consult order Rivaroxaban (Rivaroxaban 15 Mg Tablet) 15 mg PO DAILY@1700 [facility] Last Admin: 03/16/22 17:18 Dose: 15 mg Documented By: KERRIE Sodium Chloride (0.9 % Sodium Chloride Flush 3 Ml Syringe) 3 ml IVFLUSH QSHIFT [facility] Last Admin: 03/17/22 09:10 Dose: Not Given Documented By: CLAYTON Non-Admin Reason: Patient Refused Spironolactone (Spironolactone 25 Mg Tablet) 12.5 mg PO DAILY [facility]; Protocol Last Admin: 03/17/22 09:11 Dose: Not Given Documented By: CLAYTON Non-Admin Reason: Patient Refused Tamsulosin HCl (Tamsulosin Hcl 0.4 Mg Capsule) 0.4 mg PO DAILY [facility] Last Admin: 03/17/22 09:11 Dose: Not Given Documented By: CLAYTON Non-Admin Reason: Patient Refused Labs CBC & Chem 7: 03/15/22 06:34 03/15/22 06:34 Assessment and Plan (1) Traumatic perforation of rectum: Status: Acute (2) (HFpEF) heart failure with preserved ejection fraction: Status: Acute Plan 77yo M with hx chronic HFrEF, AF s/p PPM 2020 AC on rivaroxaban, CKD3, unspecified dementia, brought in after falling [place] the [place] while intoxicated and developing an open anal wound with fecal drainage admitted for perirectal perforation/cellulitis 1.Perirectal perforation/cellulitis - tolerating diet , fecal drainage through open perianal wound...cellulitis resolved -refusing meds at this time 2.Urinary retention - prn bladder scan, straight cath PRN 3.Chronic HFpEF/CHronic AF - compensated CHF with no exacerbation at time time - Echo showed EF of 15-20% , significant dilatation of ascending aortic size at 5 cm.? - carvedilol/ rivaroxaban/spironolactone -follow clinically adjust as indicated 4.CKD3 -follow renals/divalents Rivaroxaban DNR/DNI Patient requires ongoing hospitalization to secure safe discharge to [facility] Quality Stroke Does the patient have a stroke diagnosis?: No VTE Prior VTE?: No VTE Risk Level:: Medical - moderate - high VTE Device Contraindication: N/A - Device Ordered VTE Drug Contraindication: Treatment Not Indicated
[2022-03-17] MEDS: Rivaroxaban 15 MG TABLET PO (15:36)
[2022-03-17] MEDS: 0.9 % Sodium Chloride Flush 3 ML SYRINGE IVFLUSH (15:37)
[2022-03-17] MEDS: Nystatin Powder 15 GM BOTTLE 1 APPL TOPICAL ×2 (15:44→20:36)
[2022-03-17 16:00] VITALS: BP 110/78; PULSE 98; RESP 18; TEMP 37.1; O2SAT 99
[2022-03-17 20:00] VITALS: BP 120/82; PULSE 98; RESP 18; TEMP 36.9; O2SAT 99
[2022-03-17] MEDS: carvediloL 6.25 MG TABLET PO (20:34)
[2022-03-17] MEDS: Melatonin 3 MG TABLET PO (20:34)
[2022-03-18] VITALS: BP 109/78; PULSE 86; RESP 18; TEMP 36.1; O2SAT 99
[2022-03-18 04:00] VITALS: BP 100/78; PULSE 79; RESP 18; TEMP 36.4; O2SAT 99
[2022-03-18] MEDS: Omeprazole 20 MG CAPSULE.DR PO (05:28)
[2022-03-18] MEDS: oxyCODONE HCl Immed Release 5 MG TABLET PO (06:07)
[2022-03-18 06:09] LABS: MANUAL DIFF FLAG NO
[2022-03-18 06:21] LABS: Basophils Absolute Auto 0.1 X10*3/uL (0.0-0.2); Basophils Percent Auto 0.7 % (0-2); Eosinophils Absolute Auto 0.1 X10*3/uL (0.0-0.4); Eosinophils Percent Auto 0.7 % (0-4); Hematocrit 31.3 % (42.0-52.0); Hemoglobin 10.1 g/dl (14.0-18.0); Imm Gran Abs Auto 0.04 X10*3/uL (0.00-0.03); Imm Gran Pct Auto 0.5 % (0.0-0.4); Lymphocytes Absolute Auto 2.3 X10*3/uL (1.2-4.9); Lymphocytes Percent Auto 30.9 % (20-40); Mean Corpuscular HGB Conc 32.3 g/dl (31.0-36.0); Mean Corpuscular Hemoglobin 28.8 pg (27.0-33.0); Mean Corpuscular Volume 89.2 fL (80.0-98.0); Mean Platelet Volume 9.7 fL (9.4-12.4); Monocytes Absolute Auto 0.9 X10*3/uL (0.1-1.2); Monocytes Percent Auto 12.2 % (2-11); Neutrophils Absolute Auto 4.1 x10*3/uL (2.0-8.3); Platelet Count 242 X10*3/uL (160-400); Red Blood Count 3.51 X10*6/uL (4.60-5.80); Red Cell Distribution Width 18.1 % (11.0-16.0); White Blood Count 7.4 X10*3/uL (4.8-10.8)
[2022-03-18 06:32] LABS: Alanine Aminotransferase 7 U/L (0-40); Albumin Level 2.8 g/dL (3.5-5.0); Alkaline Phosphatase 83 U/L (39-117); Anion Gap 14 (12-20); Aspartate Amino Transferase 12 U/L (5-37); Bilirubin Total 1.1 mg/dL (0.0-1.0); Blood Urea Nitrogen 29 mg/dL (9-16); Calcium 8.8 mg/dL (8.4-10.2); Carbon Dioxide 19 mmol/L (22-29); Chloride 103 mmol/L (96-108); Creatinine Clr Calc Pharmacy 48.3; Estimated Glomerular Filt Rate 52; Glucose Fasting 100 mg/dL (60-99); Sodium 131 mmol/L (135-145); Total Protein 6.4 g/dL (6.5-8.0)
[2022-03-18 07:47] VITALS: BP 107/65; PULSE 109; RESP 18; TEMP 36.8; O2SAT 99
[2022-03-18] MEDS: Spironolactone 25 MG TABLET 12.5 MG PO (08:37)
[2022-03-18] MEDS: carvediloL 6.25 MG TABLET PO ×2 (08:38→20:28)
[2022-03-18] MEDS: Tamsulosin HCL 0.4 MG CAPSULE PO (08:38)
[2022-03-18] MEDS: Folic Acid 1 MG TABLET PO (08:38)
[2022-03-18] MEDS: Nystatin Powder 15 GM BOTTLE 1 APPL TOPICAL ×3 (09:17→20:29)
--- NOTE | 2022-03-18 11:55 | P.PNIM_ITS ---
Subjective Subjective Date of Service: 03/18/22 Interval History: No acute issues overnight. Refusing all medicines Review of Systems Denies chest pain Denies shortness of breath Denies nausea vomiting diarrhea Denies fever chills Physical Exam Vital Signs: Vital Signs: Last Vital Signs Temp 98.3 F 03/18/22 07:47 Pulse 109 H 03/18/22 07:47 Resp 18 03/18/22 07:47 BP 107/65 03/18/22 07:47 Pulse Ox 99 03/18/22 07:47 O2 Del Method 03/18/22 07:47 O2 Flow Rate 89 03/14/22 19:22 BMI result Body Mass Index 26.4 Const: Other: Awake alert no acute distress Resp: Other: Clear to auscultation bilaterally no rales rhonchi or wheezes Cardio: Other: No S4; positive S1-S2; no S3 murmurs rubs or gallops GI: Other: Soft nontender nondistended normoactive bowel sounds : Other: open wound perianal area with drainage of soft stool, mild surrounding redness Extrem: Other: No edema bilaterally Objective Data Active Medications Acetaminophen (Acetaminophen 325 Mg Tablet) 650 mg PO Q6H PRN PRN Reason: Pain, Mild (Pain Scale 1-3) Last Admin: 03/17/22 20:34 Dose: 650 mg Documented By: GABE Benzonatate (Benzonatate 100 Mg Capsule) 100 mg PO TID PRN PRN Reason: Cough Last Admin: 02/22/22 16:03 Dose: 100 mg Documented By: BOGDAN Carvedilol (Carvedilol 6.25 Mg Tablet) 6.25 mg PO BID [facility]; Protocol Last Admin: 03/18/22 08:38 Dose: 6.25 mg Documented By: CLAYTON Folic Acid (Folic Acid 1 Mg Tablet) 1 mg PO DAILY [facility] Last Admin: 03/18/22 08:38 Dose: 1 mg Documented By: CLAYTON Melatonin (Melatonin 3 Mg Tablet) 3 mg PO BEDTIME PRN PRN Reason: Insomnia Last Admin: 03/17/22 20:34 Dose: 3 mg Documented By: GABE Nystatin (Nystatin Powder 15 Gm Bottle) 1 appl TOPICAL TID [facility]; Protocol Last Admin: 03/18/22 09:17 Dose: 1 appl Documented By: CLAYTON Omeprazole (Omeprazole 20 Mg Capsule.) 20 mg PO DAILY@0630 [facility] Last Admin: 03/18/22 05:28 Dose: 20 mg Documented By: GABE Ondansetron HCl (Ondansetron Hcl 4 Mg/2 Ml Vial) 4 mg IVPUSH Q8H PRN PRN Reason: Nausea and Vomiting Last Admin: 02/27/22 14:51 Dose: 4 mg Documented By: JEAN Pharmacy Consult (Consult Rx Perform Med Rec) 1 each MISCELLANE ONCE PRN PRN Reason: Consult order Rivaroxaban (Rivaroxaban 15 Mg Tablet) 15 mg PO DAILY@1700 [facility] Last Admin: 03/17/22 15:36 Dose: 15 mg Documented By: CLAYTON Sodium Chloride (0.9 % Sodium Chloride Flush 3 Ml Syringe) 3 ml IVFLUSH QSHIFT [facility] Last Admin: 03/18/22 08:40 Dose: Not Given Documented By: CLAYTON Non-Admin Reason: No Access Spironolactone (Spironolactone 25 Mg Tablet) 12.5 mg PO DAILY [facility]; Protocol Last Admin: 03/18/22 08:37 Dose: 12.5 mg Documented By: CLAYTON Tamsulosin HCl (Tamsulosin Hcl 0.4 Mg Capsule) 0.4 mg PO DAILY [facility] Last Admin: 03/18/22 08:38 Dose: 0.4 mg Documented By: CLAYTON Labs CBC & Chem 7: 03/18/22 05:39 03/18/22 05:39 Labs: Laboratory Results - last 24 hr 03/18/22 03/18/22 05:39 05:39 MCV 89.2 MCH 28.8 MCHC 32.3 RDW 18.1 H Plt Count 242 MPV 9.7 Immature Gran % (Auto) 0.5 H Neut % (Auto) 55.0 Lymph % (Auto) 30.9 [place] % (Auto) 12.2 H Eos % (Auto) 0.7 Baso % (Auto) 0.7 Lymph # (Auto) 2.3 [place] # (Auto) 0.9 Eos # (Auto) 0.1 Baso # (Auto) 0.1 Abs Immat Gran (auto) 0.04 H Absolute Neuts (auto) 4.1 Absolute Nucleated RBC 0.000 Nucleated RBC % (auto) 0.0 Anion Gap 14 Estim Creat Clear Calc 48.3 Estimated GFR 52 Fasting Glucose 100 H Calcium 8.8 Total Bilirubin 1.1 H AST 12 ALT 7 Alkaline Phosphatase 83 Total Protein 6.4 L Albumin 2.8 L Assessment and Plan (1) Perirectal cellulitis: Status: Acute Plan 77yo M with hx chronic HFrEF, AF s/p PPM 2019 AC on rivaroxaban, CKD3, unspecified dementia, brought in after falling [place] the [place] while intoxicated and developing an open anal wound with fecal drainage admitted for perirectal perforation/cellulitis 1.Perirectal perforation/cellulitis - tolerating diet , fecal drainage through open perianal wound...cellulitis resolved -refusing meds at this time 2.Urinary retention - prn bladder scan, straight cath PRN 3.Chronic HFpEF/CHronic AF - compensated CHF with no exacerbation at time time - Echo showed EF of 15-20% , significant dilatation of ascending aortic size at 5 cm.? - carvedilol/ rivaroxaban/spironolactone -follow clinically adjust as indicated 4.CKD3 -follow renals/divalents Rivaroxaban DNR/DNI Patient requires ongoing hospitalization to secure safe discharge to [facility] Quality Stroke Does the patient have a stroke diagnosis?: No VTE Prior VTE?: No VTE Risk Level:: Medical - moderate - high VTE Device Contraindication: N/A - Device Ordered VTE Drug Contraindication: Treatment Not Indicated
[2022-03-18 12:00] VITALS: BP 107/65; PULSE 90; RESP 18; TEMP 36.8
[2022-03-18 15:57] VITALS: BP 102/80; PULSE 109; RESP 18; TEMP 36.4; O2SAT 97
[2022-03-18] MEDS: Rivaroxaban 15 MG TABLET PO (16:12)
[2022-03-18 20:00] VITALS: BP 118/70; PULSE 98; RESP 18; TEMP 36.6; O2SAT 97
[2022-03-19] VITALS (7 sets, daily range): BP systolic 88–133; BP diastolic 58–72; PULSE 62–92; RESP 17–18; TEMP 36.3–36.6; O2SAT 94–100
[2022-03-19] MEDS: Omeprazole 20 MG CAPSULE.DR PO (05:27)
[2022-03-19] MEDS: Tamsulosin HCL 0.4 MG CAPSULE PO (09:25)
[2022-03-19] MEDS: Spironolactone 25 MG TABLET 12.5 MG PO (09:25)
[2022-03-19] MEDS: Folic Acid 1 MG TABLET PO (09:26)
[2022-03-19] MEDS: carvediloL 6.25 MG TABLET PO ×2 (09:26→20:16)
[2022-03-19] MEDS: Acetaminophen 325 MG TABLET 650 MG PO ×2 (09:27→16:15)
[2022-03-19] MEDS: Nystatin Powder 15 GM BOTTLE 1 APPL TOPICAL ×3 (09:29→20:18)
--- NOTE | 2022-03-19 13:20 | HO.PM.IMPN ---
Subjective Subjective Date of Service: 03/19/22 Interval History: No acute issues overnight. Review of Systems Denies chest pain Denies shortness of breath Denies nausea vomiting diarrhea Denies fever chills Physical Exam Vital Signs: Vital Signs: Last Vital Signs Temp 97.9 F 03/19/22 11:48 Pulse 87 03/19/22 11:48 Resp 18 03/19/22 11:48 BP 98/67 03/19/22 11:48 Pulse Ox 97 03/19/22 11:48 O2 Del Method 03/19/22 11:48 O2 Flow Rate 89 03/14/22 19:22 BMI result Body Mass Index 26.4 Const: Other: Awake alert no acute distress Resp: Other: Clear to auscultation bilaterally no rales rhonchi or wheezes Cardio: Other: No S4; positive S1-S2; no S3 murmurs rubs or gallops GI: Other: Soft nontender nondistended normoactive bowel sounds : Other: open wound perianal area with drainage of soft stool, mild surrounding redness Extrem: Other: No edema bilaterally Objective Data Active Medications Acetaminophen (Acetaminophen 325 Mg Tablet) 650 mg PO Q6H PRN PRN Reason: Pain, Mild (Pain Scale 1-3) Last Admin: 03/19/22 09:27 Dose: 650 mg Documented By: BETY Benzonatate (Benzonatate 100 Mg Capsule) 100 mg PO TID PRN PRN Reason: Cough Last Admin: 02/22/22 16:03 Dose: 100 mg Documented By: BOGDAN Carvedilol (Carvedilol 6.25 Mg Tablet) 6.25 mg PO BID [facility]; Protocol Last Admin: 03/19/22 09:26 Dose: 6.25 mg Documented By: BETY Folic Acid (Folic Acid 1 Mg Tablet) 1 mg PO DAILY [facility] Last Admin: 03/19/22 09:26 Dose: 1 mg Documented By: BETY Melatonin (Melatonin 3 Mg Tablet) 3 mg PO BEDTIME PRN PRN Reason: Insomnia Last Admin: 03/17/22 20:34 Dose: 3 mg Documented By: GABE Nystatin (Nystatin Powder 15 Gm Bottle) 1 appl TOPICAL TID [facility]; Protocol Last Admin: 03/19/22 09:29 Dose: 1 appl Documented By: BETY Omeprazole (Omeprazole 20 Mg Capsule.) 20 mg PO DAILY@0630 [facility] Last Admin: 03/19/22 05:27 Dose: 20 mg Documented By: GABE Ondansetron HCl (Ondansetron Hcl 4 Mg/2 Ml Vial) 4 mg IVPUSH Q8H PRN PRN Reason: Nausea and Vomiting Last Admin: 02/27/22 14:51 Dose: 4 mg Documented By: JEAN Pharmacy Consult (Consult Rx Perform Med Rec) 1 each MISCELLANE ONCE PRN PRN Reason: Consult order Rivaroxaban (Rivaroxaban 15 Mg Tablet) 15 mg PO DAILY@1700 [facility] Last Admin: 03/18/22 16:12 Dose: 15 mg Documented By: CLAYTON Sodium Chloride (0.9 % Sodium Chloride Flush 3 Ml Syringe) 3 ml IVFLUSH QSHIFT [facility] Last Admin: 03/19/22 09:27 Dose: Not Given Documented By: BETY Non-Admin Reason: No Access Spironolactone (Spironolactone 25 Mg Tablet) 12.5 mg PO DAILY [facility]; Protocol Last Admin: 03/19/22 09:25 Dose: 12.5 mg Documented By: BETY Tamsulosin HCl (Tamsulosin Hcl 0.4 Mg Capsule) 0.4 mg PO DAILY [facility] Last Admin: 03/19/22 09:25 Dose: 0.4 mg Documented By: BETY Labs CBC & Chem 7: 03/18/22 05:39 03/18/22 05:39 Assessment and Plan (1) Traumatic perforation of rectum: Status: Acute (2) (HFpEF) heart failure with preserved ejection fraction: Status: Acute (3) CKD (chronic kidney disease) stage 3, GFR 30-59 ml/min: Status: Acute Plan 77yo M with hx chronic HFrEF, AF s/p PPM 2019 AC on rivaroxaban, CKD3, unspecified dementia, brought in after falling [place] the [place] while intoxicated and developing an open anal wound with fecal drainage admitted for perirectal perforation/cellulitis 1.Perirectal perforation/cellulitis - tolerating diet , fecal drainage through open perianal wound...cellulitis resolved -refusing meds at this time;intermittantly complaint -no acute issues r/t perforation 2.Urinary retention - prn bladder scan, straight cath PRN 3.Chronic HFpEF/CHronic AF - well compensated at this time - Echo showed EF of 15-20% , significant dilatation of ascending aortic size at 5 cm.? - carvedilol/ rivaroxaban/spironolactone -follow clinically adjust as indicated 4.CKD3 -at baseline -follow renals/divalents Rivaroxaban DNR/DNI Patient requires ongoing hospitalization to secure safe discharge to [facility] Stroke Does the patient have a stroke diagnosis?: No VTE Prior VTE?: No VTE Risk Level:: Medical - moderate - high VTE Device Contraindication: N/A - Device Ordered VTE Drug Contraindication: Treatment Not Indicated
[2022-03-19] MEDS: Rivaroxaban 15 MG TABLET PO (16:15)
[2022-03-19] MEDS: Melatonin 3 MG TABLET PO (22:16)
[2022-03-20 03:19] VITALS: BP 117/79; PULSE 122; RESP 18; TEMP 36.9; O2SAT 96
[2022-03-20] MEDS: Omeprazole 20 MG CAPSULE.DR PO (05:44)
[2022-03-20 07:47] VITALS: BP 104/73; PULSE 97; RESP 18; TEMP 37; O2SAT 98
[2022-03-20] MEDS: Folic Acid 1 MG TABLET PO (09:18)
[2022-03-20] MEDS: Acetaminophen 325 MG TABLET 650 MG PO ×3 (09:18→22:54)
[2022-03-20] MEDS: Spironolactone 25 MG TABLET 12.5 MG PO (09:18)
[2022-03-20] MEDS: Tamsulosin HCL 0.4 MG CAPSULE PO (09:18)
[2022-03-20] MEDS: Nystatin Powder 15 GM BOTTLE 1 APPL TOPICAL ×3 (09:18→20:26)
[2022-03-20] MEDS: carvediloL 6.25 MG TABLET PO ×2 (09:18→20:25)
--- NOTE | 2022-03-20 10:11 | HO.PM.IMPN ---
Subjective Subjective Date of Service: 03/20/22 Interval History: No acute issues overnight. Continues to be intermittently noncompliant with therapies Review of Systems Denies chest pain Denies shortness of breath Denies nausea vomiting diarrhea Denies fever chills Physical Exam Vital Signs: Vital Signs: Last Vital Signs Temp 98.6 F 03/20/22 07:47 Pulse 97 03/20/22 07:47 Resp 18 03/20/22 07:47 BP 104/73 03/20/22 07:47 Pulse Ox 98 03/20/22 07:47 O2 Del Method 03/20/22 07:47 O2 Flow Rate 89 03/14/22 19:22 BMI result Body Mass Index 26.4 Const: Other: Awake alert no acute distress Resp: Other: Clear to auscultation bilaterally no rales rhonchi or wheezes Cardio: Other: No S4; positive S1-S2; no S3 murmurs rubs or gallops GI: Other: Soft nontender nondistended normoactive bowel sounds : Other: open wound perianal area with drainage of soft stool, mild surrounding redness Extrem: Other: No edema bilaterally Objective Data Active Medications Acetaminophen (Acetaminophen 325 Mg Tablet) 650 mg PO Q6H PRN PRN Reason: Pain, Mild (Pain Scale 1-3) Last Admin: 03/20/22 09:18 Dose: 650 mg Documented By: ROCIO Benzonatate (Benzonatate 100 Mg Capsule) 100 mg PO TID PRN PRN Reason: Cough Last Admin: 02/22/22 16:03 Dose: 100 mg Documented By: BOGDAN Carvedilol (Carvedilol 6.25 Mg Tablet) 6.25 mg PO BID [facility]; Protocol Last Admin: 03/20/22 09:18 Dose: 6.25 mg Documented By: ROCIO Folic Acid (Folic Acid 1 Mg Tablet) 1 mg PO DAILY [facility] Last Admin: 03/20/22 09:18 Dose: 1 mg Documented By: ROCIO Melatonin (Melatonin 3 Mg Tablet) 3 mg PO BEDTIME PRN PRN Reason: Insomnia Last Admin: 03/19/22 22:16 Dose: 3 mg Documented By: OZORALB Nystatin (Nystatin Powder 15 Gm Bottle) 1 appl TOPICAL TID [facility]; Protocol Last Admin: 03/20/22 09:18 Dose: 1 appl Documented By: ROCIO Omeprazole (Omeprazole 20 Mg Capsule.) 20 mg PO DAILY@0630 [facility] Last Admin: 03/20/22 05:44 Dose: 20 mg Documented By: OZORALB Ondansetron HCl (Ondansetron Hcl 4 Mg/2 Ml Vial) 4 mg IVPUSH Q8H PRN PRN Reason: Nausea and Vomiting Last Admin: 02/27/22 14:51 Dose: 4 mg Documented By: JEAN Pharmacy Consult (Consult Rx Perform Med Rec) 1 each MISCELLANE ONCE PRN PRN Reason: Consult order Rivaroxaban (Rivaroxaban 15 Mg Tablet) 15 mg PO DAILY@1700 [facility] Last Admin: 03/19/22 16:15 Dose: 15 mg Documented By: N-RIVLA Sodium Chloride (0.9 % Sodium Chloride Flush 3 Ml Syringe) 3 ml IVFLUSH QSHIFT [facility] Last Admin: 03/20/22 09:13 Dose: Not Given Documented By: COTCATRACHO Non-Admin Reason: No Access Spironolactone (Spironolactone 25 Mg Tablet) 12.5 mg PO DAILY [facility]; Protocol Last Admin: 03/20/22 09:18 Dose: 12.5 mg Documented By: ROCIO Tamsulosin HCl (Tamsulosin Hcl 0.4 Mg Capsule) 0.4 mg PO DAILY [facility] Last Admin: 03/20/22 09:18 Dose: 0.4 mg Documented By: ROCIO Labs CBC & Chem 7: 03/18/22 05:39 03/18/22 05:39 Assessment and Plan (1) Traumatic perforation of rectum: Status: Acute (2) Cellulitis of buttock: Status: Acute (3) (HFpEF) heart failure with preserved ejection fraction: Status: Acute Plan 77yo M with hx chronic HFrEF, AF s/p PPM 2019 AC on rivaroxaban, CKD3, unspecified dementia, brought in after falling in the [place] while intoxicated and developing an open anal wound with fecal drainage admitted for perirectal perforation/cellulitis 1.Perirectal perforation/cellulitis - tolerating diet , fecal drainage through open perianal wound...cellulitis resolved.Stable at this time -refusing meds at this time;intermittantly complaint -no acute issues r/t perforation 2.Urinary retention - prn bladder scan, straight cath PRN 3.Chronic HFpEF/CHronic AF - well compensated at this time - Echo showed EF of 15-20% , significant dilatation of ascending aortic size at 5 cm.? - carvedilol/ rivaroxaban/spironolactone -follow clinically adjust as indicated...no further issues 4.CKD3 -at baseline -follow renals/divalents Rivaroxaban DNR/DNI Patient requires ongoing hospitalization to secure safe discharge to [facility] Stroke Does the patient have a stroke diagnosis?: No VTE Prior VTE?: No VTE Risk Level:: Medical - moderate - high VTE Device Contraindication: N/A - Device Ordered VTE Drug Contraindication: Treatment Not Indicated
[2022-03-20 12:00] VITALS: BP 100/76; PULSE 100; RESP 18; TEMP 36.1; O2SAT 99
[2022-03-20 15:38] VITALS: BP 120/70; PULSE 101; RESP 18; TEMP 36.3; O2SAT 100
[2022-03-20] MEDS: Rivaroxaban 15 MG TABLET PO (15:55)
[2022-03-20 20:00] VITALS: BP 115/62; PULSE 98; RESP 17; TEMP 36.4; O2SAT 100
[2022-03-20] MEDS: Melatonin 3 MG TABLET PO (22:54)
[2022-03-21] VITALS: BP 105/57; PULSE 95; RESP 17; TEMP 36.7; O2SAT 98
[2022-03-21 03:53] VITALS: BP 110/62; PULSE 90; RESP 17; TEMP 36.4; O2SAT 97
[2022-03-21] MEDS: Acetaminophen 325 MG TABLET 650 MG PO ×3 (04:59→17:19)
[2022-03-21] MEDS: Omeprazole 20 MG CAPSULE.DR PO (05:00)
[2022-03-21 08:00] VITALS: BP 114/77; PULSE 76; RESP 18; TEMP 36.2; O2SAT 97
[2022-03-21] MEDS: Tamsulosin HCL 0.4 MG CAPSULE PO (09:00)
[2022-03-21] MEDS: carvediloL 6.25 MG TABLET PO ×2 (09:00→20:25)
[2022-03-21] MEDS: Folic Acid 1 MG TABLET PO (09:00)
[2022-03-21] MEDS: Spironolactone 25 MG TABLET 12.5 MG PO (09:00)
[2022-03-21] MEDS: Nystatin Powder 15 GM BOTTLE 1 APPL TOPICAL ×3 (09:01→20:26)
[2022-03-21] MEDS: oxyCODONE HCl Immed Release 5 MG TABLET PO ×2 (11:09→17:19)
[2022-03-21 11:43] VITALS: BP 126/72; PULSE 74; RESP 18; TEMP 36.6; O2SAT 98
--- NOTE | 2022-03-21 12:48 | P.PNIM_ITS ---
Subjective Subjective Date of Service: 03/21/22 Interval History: sitting comfortably on bed , complaining of generalized pain, discharge from physical therapy since not following recommendations, no other acute events overnight Review of Systems General no headache no dizziness no fever chills. CVS no chest pain, no palpitation. Respiratory no cough, no sob. Gastrointestinal no nausea, no vomiting, no abdominal pain Physical Exam Vital Signs: Vital Signs: Last Vital Signs Temp 97.8 F 03/21/22 11:43 Pulse 74 03/21/22 11:43 Resp 18 03/21/22 11:43 BP 126/72 03/21/22 11:43 Pulse Ox 98 03/21/22 11:43 O2 Del Method 03/21/22 11:43 O2 Flow Rate 89 03/14/22 19:22 BMI result Body Mass Index 26.4 Const: Other: General? resting c omfortably in no a cute distress.? CV S? regular rate rh ythm, Respiratory lungs clear to aus cultation, no resp iratory distress, no wheeze, no rhon chi. Gastrointesti nal abdomen soft, nontender, bowel s ounds audible, no guarding , no rigi dity. Extremities no? edema. Rectal examination open w ound perianal area with drainage of soft stool, mild s urrounding redness Neuro nonfocal, m oving all 4 extrem ity, speech clear. Skin no rash Psyc h appropriate affe ct Objective Data Active Medications Acetaminophen (Acetaminophen 325 Mg Tablet) 650 mg PO Q6H PRN PRN Reason: Pain, Mild (Pain Scale 1-3) Last Admin: 03/21/22 11:09 Dose: 650 mg Documented By: COTEMA Benzonatate (Benzonatate 100 Mg Capsule) 100 mg PO TID PRN PRN Reason: Cough Last Admin: 02/22/22 16:03 Dose: 100 mg Documented By: BOGDAN Carvedilol (Carvedilol 6.25 Mg Tablet) 6.25 mg PO BID [facility]; Protocol Last Admin: 03/21/22 09:00 Dose: 6.25 mg Documented By: COTEMA Folic Acid (Folic Acid 1 Mg Tablet) 1 mg PO DAILY [facility] Last Admin: 03/21/22 09:00 Dose: 1 mg Documented By: COTEMA Melatonin (Melatonin 3 Mg Tablet) 3 mg PO BEDTIME PRN PRN Reason: Insomnia Last Admin: 03/20/22 22:54 Dose: 3 mg Documented By: JAYSHREE Nystatin (Nystatin Powder 15 Gm Bottle) 1 appl TOPICAL TID [facility]; Protocol Last Admin: 03/21/22 09:01 Dose: 1 appl Documented By: ROCIO Omeprazole (Omeprazole 20 Mg Capsule.) 20 mg PO DAILY@0630 [facility] Last Admin: 03/21/22 05:00 Dose: 20 mg Documented By: JAYSHREE Ondansetron HCl (Ondansetron Hcl 4 Mg/2 Ml Vial) 4 mg IVPUSH Q8H PRN PRN Reason: Nausea and Vomiting Last Admin: 02/27/22 14:51 Dose: 4 mg Documented By: JEAN Oxycodone HCl (Oxycodone Hcl Immed Release 5 Mg Tablet) 5 mg PO Q6H PRN PRN Reason: Pain, Severe (Pain Scale 7-10) Last Admin: 03/21/22 11:09 Dose: 5 mg Documented By: ROCIO Pharmacy Consult (Consult Rx Perform Med Rec) 1 each MISCELLANE ONCE PRN PRN Reason: Consult order Rivaroxaban (Rivaroxaban 15 Mg Tablet) 15 mg PO DAILY@1700 [facility] Last Admin: 03/20/22 15:55 Dose: 15 mg Documented By: ROCIO Sodium Chloride (0.9 % Sodium Chloride Flush 3 Ml Syringe) 3 ml IVFLUSH QSHIFT [facility] Last Admin: 03/21/22 07:09 Dose: Not Given Documented By: ROCIO Non-Admin Reason: No Access Spironolactone (Spironolactone 25 Mg Tablet) 12.5 mg PO DAILY [facility]; Protocol Last Admin: 03/21/22 09:00 Dose: 12.5 mg Documented By: ROCIO Tamsulosin HCl (Tamsulosin Hcl 0.4 Mg Capsule) 0.4 mg PO DAILY [facility] Last Admin: 03/21/22 09:00 Dose: 0.4 mg Documented By: ROCIO Labs CBC & Chem 7: 03/18/22 05:39 03/18/22 05:39 Assessment and Plan (1) Chronic a-fib: Status: Acute (2) Perirectal cellulitis: Status: Acute Plan 77yo M with hx chronic HFrEF, AF s/p PPM 2019 AC on rivaroxaban, CKD3, unspecified dementia, brought in after falling [place] the [place] while intoxicated and developing an open anal wound with fecal drainage admitted for perirectal perforation/cellulitis 1.Perirectal perforation/cellulitis - tolerating diet , fecal drainage through open perianal wound Persists cellulitis resolved. no acute issues r/t perforation 2.Urinary retention - prn bladder scan, straight cath PRN 3.Chronic HFpEF/CHronic AF - well compensated at this time - Echo showed EF of 15-20%? , significant dilatation of ascending aortic size at 5 cm.? continue carvedilol/ rivaroxaban/spironolactone 4.CKD3 -at baseline -follow renals/divalents 5. generalized pain continue Tylenol will add as needed oxycodone recommend out of bed to chair DVT prophylaxis Rivaroxaban DNR/DNI Patient requires ongoing hospitalization to secure safe discharge to long-term care Quality Stroke Does the patient have a stroke diagnosis?: No VTE Prior VTE?: No VTE Risk Level:: Medical - moderate - high VTE Device Contraindication: N/A - Device Ordered VTE Drug Contraindication: Treatment Not Indicated
[2022-03-21 15:08] VITALS: BP 110/60; PULSE 98; RESP 16; TEMP 36.3; O2SAT 98
[2022-03-21] MEDS: Rivaroxaban 15 MG TABLET PO (17:19)
[2022-03-21 19:29] VITALS: BP 101/73; PULSE 92; RESP 16; TEMP 36.2; O2SAT 97
[2022-03-22] VITALS: BP 110/62; PULSE 90; RESP 17; TEMP 36.2; O2SAT 95
[2022-03-22] MEDS: Melatonin 3 MG TABLET PO ×2 (02:40→22:45)
[2022-03-22] MEDS: oxyCODONE HCl Immed Release 5 MG TABLET PO ×2 (02:40→09:05)
[2022-03-22 04:00] VITALS: BP 105/64; PULSE 85; RESP 17; TEMP 36.1; O2SAT 95
[2022-03-22] MEDS: Acetaminophen 325 MG TABLET 650 MG PO ×2 (06:00→22:43)
[2022-03-22] MEDS: Omeprazole 20 MG CAPSULE.DR PO (06:01)
[2022-03-22 08:00] VITALS: BP 106/85; PULSE 103; RESP 18; TEMP 36.6; O2SAT 98
[2022-03-22] MEDS: Spironolactone 25 MG TABLET 12.5 MG PO (09:06)
[2022-03-22] MEDS: carvediloL 6.25 MG TABLET PO ×2 (09:07→22:17)
[2022-03-22] MEDS: Folic Acid 1 MG TABLET PO (09:07)
[2022-03-22] MEDS: Tamsulosin HCL 0.4 MG CAPSULE PO (09:07)
--- NOTE | 2022-03-22 09:21 | HO.PM.IMPN ---
Subjective Subjective Date of Service: 03/22/22 Interval History: no acute issues overnight waiting for placement to long-term care facility. Review of Systems General no headache no dizziness no fever chills.? CVS no chest pain, no palpitation.? Respiratory no cough, no sob.? Gastrointestinal no nausea, no vomiting, no abdominal pain Review of Systems: Yes all other systems are reviewed and are negative Physical Exam Vital Signs: Vital Signs: Last Vital Signs Temp 97.8 F 03/22/22 08:00 Pulse 103 H 03/22/22 08:00 Resp 18 03/22/22 08:00 BP 106/85 03/22/22 08:00 Pulse Ox 98 03/22/22 08:00 O2 Del Method 03/22/22 08:00 O2 Flow Rate 89 03/14/22 19:22 BMI result Body Mass Index 26.4 Const: Other: General? resting comfortably in no acute distress.? Neck supple no JVD. CVS? regular rate rhythm, Respiratory lungs clear to auscultation, no respiratory distress, no wheeze, no rhonchi. Gastrointestinal abdomen soft, nontender, bowel sounds audible, no guarding , no rigidity. Extremities no? edema. Rectal examination open wound perianal area with drainage of soft stool, mild surrounding erythema Neuro nonfocal, moving all 4 extremity, speech clear. Skin no rash Psych appropriate affect Objective Data Active Medications Acetaminophen (Acetaminophen 325 Mg Tablet) 650 mg PO Q6H PRN PRN Reason: Pain, Mild (Pain Scale 1-3) Last Admin: 03/22/22 06:00 Dose: 650 mg Documented By: AICHA Benzonatate (Benzonatate 100 Mg Capsule) 100 mg PO TID PRN PRN Reason: Cough Last Admin: 02/22/22 16:03 Dose: 100 mg Documented By: BOGDAN Carvedilol (Carvedilol 6.25 Mg Tablet) 6.25 mg PO BID [facility]; Protocol Last Admin: 03/22/22 09:07 Dose: 6.25 mg Documented By: MEGGAN Folic Acid (Folic Acid 1 Mg Tablet) 1 mg PO DAILY [facility] Last Admin: 03/22/22 09:07 Dose: 1 mg Documented By: MEGGAN Melatonin (Melatonin 3 Mg Tablet) 3 mg PO BEDTIME PRN PRN Reason: Insomnia Last Admin: 03/22/22 02:40 Dose: 3 mg Documented By: AICHA Nystatin (Nystatin Powder 15 Gm Bottle) 1 appl TOPICAL TID [facility]; Protocol Last Admin: 03/21/22 20:26 Dose: 1 appl Documented By: AICHA Omeprazole (Omeprazole 20 Mg Capsule.) 20 mg PO DAILY@0630 [facility] Last Admin: 03/22/22 06:01 Dose: 20 mg Documented By: AICHA Ondansetron HCl (Ondansetron Hcl 4 Mg/2 Ml Vial) 4 mg IVPUSH Q8H PRN PRN Reason: Nausea and Vomiting Last Admin: 02/27/22 14:51 Dose: 4 mg Documented By: JEAN Oxycodone HCl (Oxycodone Hcl Immed Release 5 Mg Tablet) 5 mg PO Q6H PRN PRN Reason: Pain, Severe (Pain Scale 7-10) Last Admin: 03/22/22 09:05 Dose: 5 mg Documented By: MEGGAN Pharmacy Consult (Consult Rx Perform Med Rec) 1 each MISCELLANE ONCE PRN PRN Reason: Consult order Rivaroxaban (Rivaroxaban 15 Mg Tablet) 15 mg PO DAILY@1700 [facility] Last Admin: 03/21/22 17:19 Dose: 15 mg Documented By: COTEMA Sodium Chloride (0.9 % Sodium Chloride Flush 3 Ml Syringe) 3 ml IVFLUSH QSHIFT [facility] Last Admin: 03/22/22 09:08 Dose: Not Given Documented By: MEGGAN Non-Admin Reason: No Access Spironolactone (Spironolactone 25 Mg Tablet) 12.5 mg PO DAILY [facility]; Protocol Last Admin: 03/22/22 09:06 Dose: 12.5 mg Documented By: MEGGAN Tamsulosin HCl (Tamsulosin Hcl 0.4 Mg Capsule) 0.4 mg PO DAILY [facility] Last Admin: 03/22/22 09:07 Dose: 0.4 mg Documented By: MEGGAN Labs CBC & Chem 7: 03/18/22 05:39 03/18/22 05:39 Assessment and Plan (1) Chronic a-fib: Status: Acute (2) Perirectal cellulitis: Status: Acute Plan 77yo M with hx chronic HFrEF, AF s/p PPM 2020 AC on rivaroxaban, CKD3, unspecified dementia, brought in after falling in the [place] while intoxicated and developing an open anal wound with fecal drainage admitted for perirectal perforation/cellulitis 1.Perirectal perforation/cellulitis - tolerating diet , fecal drainage through open perianal wound Persists cellulitis resolved. no acute issues r/t perforation 2.Urinary retention - prn bladder scan, straight cath PRN 3.Chronic HFpEF/CHronic AF - well compensated at this time - Echo showed EF of 15-20%? , significant dilatation of ascending aortic size at 5 cm.? continue carvedilol/ rivaroxaban/spironolactone 4.CKD3 -at baseline -follow renals/divalents 5. generalized pain continue Tylenol will add as needed oxycodone recommend out of bed to chair DVT prophylaxis Rivaroxaban DNR/DNI Patient requires ongoing hospitalization to secure safe discharge to long-term care Quality Stroke Does the patient have a stroke diagnosis?: No VTE Prior VTE?: No VTE Risk Level:: Medical - moderate - high VTE Device Contraindication: N/A - Device Ordered VTE Drug Contraindication: Treatment Not Indicated
[2022-03-22] MEDS: Nystatin Powder 15 GM BOTTLE 1 APPL TOPICAL ×3 (09:26→22:17)
[2022-03-22 11:30] VITALS: BP 110/82; PULSE 111; RESP 18; TEMP 36.6; O2SAT 99
--- NOTE | 2022-03-22 14:47 | MHC.CM.PN ---
[facility] WITH PROGRESS NOTES ACCORDING TO PREVIOUS CM, [facility] [employer] HAS NECESSARY BANK STATEMENTS
[2022-03-22 15:10] VITALS: BP 140/59; PULSE 98; RESP 19; TEMP 36.7; O2SAT 97
[2022-03-22] MEDS: Rivaroxaban 15 MG TABLET PO (17:57)
[2022-03-22 19:59] VITALS: BP 130/62; PULSE 75; RESP 17; TEMP 36.8; O2SAT 96
[2022-03-23] VITALS (7 sets, daily range): BP systolic 96–134; BP diastolic 72–85; PULSE 98–112; RESP 16–18; TEMP 35.9–37.1; O2SAT 96–99
[2022-03-23] MEDS: Omeprazole 20 MG CAPSULE.DR PO (06:14)
[2022-03-23] MEDS: Tamsulosin HCL 0.4 MG CAPSULE PO (08:38)
[2022-03-23] MEDS: Folic Acid 1 MG TABLET PO (08:38)
[2022-03-23] MEDS: oxyCODONE HCl Immed Release 5 MG TABLET PO ×2 (08:38→19:49)
[2022-03-23] MEDS: Acetaminophen 325 MG TABLET 650 MG PO (08:39)
[2022-03-23] MEDS: Spironolactone 25 MG TABLET 12.5 MG PO (08:39)
[2022-03-23] MEDS: Nystatin Powder 15 GM BOTTLE 1 APPL TOPICAL ×3 (08:40→20:22)
[2022-03-23] MEDS: carvediloL 6.25 MG TABLET PO ×2 (08:40→19:49)
--- NOTE | 2022-03-23 11:01 | HO.PM.IMPN ---
Subjective Subjective Date of Service: 03/23/22 Interval History: No acute events overnight, patient sitting comfortably tolerating diet no nausea no vomiting no abdominal pain, no fevers, no chills. Review of Systems Review of Systems: Yes all other systems are reviewed and are negative Physical Exam Vital Signs: Vital Signs: Last Vital Signs Temp 97.2 F 03/23/22 08:00 Pulse 102 H 03/23/22 08:00 Resp 18 03/23/22 08:00 BP 134/77 03/23/22 08:00 Pulse Ox 99 03/23/22 08:00 O2 Del Method 03/23/22 08:00 O2 Flow Rate 89 03/14/22 19:22 BMI result Body Mass Index 26.4 Const: Other: General? resting comfortably in no acute distress.? Neck supple no JVD. CVS? regular rate rhythm, Respiratory lungs clear to auscultation, no respiratory distress, no wheeze, no rhonchi. Gastrointestinal abdomen soft, nontender, bowel sounds audible, no guarding , no rigidity. Extremities no? edema. Rectal examination open wound perianal area with drainage of soft stool, mild surrounding? erythema Neuro nonfocal, moving all 4 extremity, speech clear. Skin no rash Psych appropriate affect Objective Data Active Medications Acetaminophen (Acetaminophen 325 Mg Tablet) 650 mg PO Q6H PRN PRN Reason: Pain, Mild (Pain Scale 1-3) Last Admin: 03/23/22 08:39 Dose: 650 mg Documented By: KERRIE Benzonatate (Benzonatate 100 Mg Capsule) 100 mg PO TID PRN PRN Reason: Cough Last Admin: 02/22/22 16:03 Dose: 100 mg Documented By: BOGDAN Carvedilol (Carvedilol 6.25 Mg Tablet) 6.25 mg PO BID [facility]; Protocol Last Admin: 03/23/22 08:40 Dose: 6.25 mg Documented By: KERRIE Folic Acid (Folic Acid 1 Mg Tablet) 1 mg PO DAILY [facility] Last Admin: 03/23/22 08:38 Dose: 1 mg Documented By: KERRIE Melatonin (Melatonin 3 Mg Tablet) 3 mg PO BEDTIME PRN PRN Reason: Insomnia Last Admin: 03/22/22 22:45 Dose: 3 mg Documented By: AICHA Nystatin (Nystatin Powder 15 Gm Bottle) 1 appl TOPICAL TID [facility]; Protocol Last Admin: 03/23/22 08:40 Dose: 1 appl Documented By: KERRIE Omeprazole (Omeprazole 20 Mg Capsule.) 20 mg PO DAILY@0630 [facility] Last Admin: 03/23/22 06:14 Dose: 20 mg Documented By: AICHA Ondansetron HCl (Ondansetron Hcl 4 Mg/2 Ml Vial) 4 mg IVPUSH Q8H PRN PRN Reason: Nausea and Vomiting Last Admin: 02/27/22 14:51 Dose: 4 mg Documented By: JEAN Oxycodone HCl (Oxycodone Hcl Immed Release 5 Mg Tablet) 5 mg PO Q6H PRN PRN Reason: Pain, Severe (Pain Scale 7-10) Last Admin: 03/23/22 08:38 Dose: 5 mg Documented By: KERRIE Pharmacy Consult (Consult Rx Perform Med Rec) 1 each MISCELLANE ONCE PRN PRN Reason: Consult order Rivaroxaban (Rivaroxaban 15 Mg Tablet) 15 mg PO DAILY@1700 [facility] Last Admin: 03/22/22 17:57 Dose: 15 mg Documented By: KERRIE Sodium Chloride (0.9 % Sodium Chloride Flush 3 Ml Syringe) 3 ml IVFLUSH QSHIFT [facility] Last Admin: 03/23/22 08:40 Dose: Not Given Documented By: KERRIE Non-Admin Reason: No Access Spironolactone (Spironolactone 25 Mg Tablet) 12.5 mg PO DAILY [facility]; Protocol Last Admin: 03/23/22 08:39 Dose: 12.5 mg Documented By: KERRIE Tamsulosin HCl (Tamsulosin Hcl 0.4 Mg Capsule) 0.4 mg PO DAILY [facility] Last Admin: 03/23/22 08:38 Dose: 0.4 mg Documented By: KERRIE Labs CBC & Chem 7: 03/18/22 05:39 03/18/22 05:39 Assessment and Plan (1) Chronic a-fib: Status: Acute (2) Perirectal cellulitis: Status: Acute Plan 77yo M with hx chronic HFrEF, AF s/p PPM 2020 AC on rivaroxaban, CKD3, unspecified dementia, brought in after falling [place] the [place] while intoxicated and developing an open anal wound with fecal drainage admitted for perirectal perforation/cellulitis 1.Perirectal perforation/cellulitis - tolerating diet , fecal drainage through open perianal wound Persists cellulitis resolved. no acute issues r/t perforation 2.Urinary retention - prn bladder scan, straight cath PRN 3.Chronic HFpEF/CHronic AF - well compensated at this time - Echo showed EF of 15-20%? , significant dilatation of ascending aortic size at 5 cm.? continue carvedilol/ rivaroxaban/spironolactone 4.CKD3 -at baseline -follow renals/divalents 5. generalized pain continue Tylenol and prn oxycodone recommend out of bed to chair DVT prophylaxis Rivaroxaban DNR/DNI Patient requires ongoing hospitalization to secure safe discharge to long-term care Quality Stroke Does the patient have a stroke diagnosis?: No VTE Prior VTE?: No VTE Risk Level:: Medical - moderate - high VTE Device Contraindication: N/A - Device Ordered VTE Drug Contraindication: Treatment Not Indicated
[2022-03-23] MEDS: 0.9 % Sodium Chloride Flush 3 ML SYRINGE IVFLUSH (15:56)
[2022-03-23] MEDS: Rivaroxaban 15 MG TABLET PO (15:58)
[2022-03-24] MEDS: Omeprazole 20 MG CAPSULE.DR PO (05:15)
[2022-03-24 05:48] VITALS: BP 104/77; PULSE 100; RESP 18; TEMP 36.4; O2SAT 96
[2022-03-24 08:34] VITALS: BP 103/80; PULSE 103
[2022-03-24] MEDS: Spironolactone 25 MG TABLET 12.5 MG PO (08:40)
[2022-03-24] MEDS: Folic Acid 1 MG TABLET PO (08:40)
[2022-03-24] MEDS: carvediloL 6.25 MG TABLET PO ×2 (08:41→21:55)
[2022-03-24] MEDS: Tamsulosin HCL 0.4 MG CAPSULE PO (08:41)
[2022-03-24] MEDS: Acetaminophen 325 MG TABLET 650 MG PO ×2 (08:44→21:58)
[2022-03-24] MEDS: Nystatin Powder 15 GM BOTTLE 1 APPL TOPICAL (08:46)
[2022-03-24 11:18] VITALS: BP 131/84; PULSE 107; RESP 18; TEMP 37.1; O2SAT 98
[2022-03-24] MEDS: oxyCODONE HCl Immed Release 5 MG TABLET PO ×2 (12:28→21:55)
--- NOTE | 2022-03-24 12:46 | HO.PM.IMPN ---
Subjective Subjective Date of Service: 03/24/22 Interval History: being followed for placement patient offers no acute complaints no acute events overnight. no fevers no chills no shortness of breath, no cough no nausea, no vomiting no abdominal pain Review of Systems Review of Systems: Yes all other systems are reviewed and are negative Physical Exam Vital Signs: Vital Signs: Last Vital Signs Temp 98.8 F 03/24/22 11:18 Pulse 107 H 03/24/22 11:18 Resp 18 03/24/22 11:18 BP 131/84 03/24/22 11:18 Pulse Ox 98 03/24/22 11:18 O2 Del Method 03/24/22 11:18 O2 Flow Rate 89 03/14/22 19:22 BMI result Body Mass Index 26.4 Const: Other: General? resting c omfortably in no a cute distress.? Ne ck supple no JVD. CVS? regular rate rhythm, Respirator y lungs clear to a uscultation, no re spiratory distress , no wheeze, no rh onchi. Gastrointes tinal abdomen soft , nontender, bowel sounds audible, n o guarding , no ri gidity. Extremitie s no? edema. Recta l examination open wound perianal ar ea with drainage o f soft stool, mild surrounding? eryt uriel Neuro nonfoca l, moving all 4 ex tremity, speech cl ear. Skin no rash Psych appropriate affect Objective Data Active Medications Acetaminophen (Acetaminophen 325 Mg Tablet) 650 mg PO Q6H PRN PRN Reason: Pain, Mild (Pain Scale 1-3) Last Admin: 03/24/22 08:44 Dose: 650 mg Documented By: KIMBERLY Benzonatate (Benzonatate 100 Mg Capsule) 100 mg PO TID PRN PRN Reason: Cough Last Admin: 02/22/22 16:03 Dose: 100 mg Documented By: BOGDAN Carvedilol (Carvedilol 6.25 Mg Tablet) 6.25 mg PO BID [facility]; Protocol Last Admin: 03/24/22 08:41 Dose: 6.25 mg Documented By: KIMBERLY Folic Acid (Folic Acid 1 Mg Tablet) 1 mg PO DAILY [facility] Last Admin: 03/24/22 08:40 Dose: 1 mg Documented By: KIMBERLY Melatonin (Melatonin 3 Mg Tablet) 3 mg PO BEDTIME PRN PRN Reason: Insomnia Last Admin: 03/22/22 22:45 Dose: 3 mg Documented By: AICHA Nystatin (Nystatin Powder 15 Gm Bottle) 1 appl TOPICAL TID [facility]; Protocol Last Admin: 03/24/22 08:46 Dose: 1 appl Documented By: KIMBERLY Omeprazole (Omeprazole 20 Mg Capsule.) 20 mg PO DAILY@0630 [facility] Last Admin: 03/24/22 05:15 Dose: 20 mg Documented By: ITZEL Ondansetron HCl (Ondansetron Hcl 4 Mg/2 Ml Vial) 4 mg IVPUSH Q8H PRN PRN Reason: Nausea and Vomiting Last Admin: 02/27/22 14:51 Dose: 4 mg Documented By: JEAN Oxycodone HCl (Oxycodone Hcl Immed Release 5 Mg Tablet) 5 mg PO Q6H PRN PRN Reason: Pain, Severe (Pain Scale 7-10) Last Admin: 03/24/22 12:28 Dose: 5 mg Documented By: KIMBERLY Pharmacy Consult (Consult Rx Perform Med Rec) 1 each MISCELLANE ONCE PRN PRN Reason: Consult order Rivaroxaban (Rivaroxaban 15 Mg Tablet) 15 mg PO DAILY@1700 [facility] Last Admin: 03/23/22 15:58 Dose: 15 mg Documented By: CAROL Sodium Chloride (0.9 % Sodium Chloride Flush 3 Ml Syringe) 3 ml IVFLUSH QSHIFT [facility] Last Admin: 03/24/22 08:37 Dose: Not Given Documented By: KIMBERLY Non-Admin Reason: No Access Spironolactone (Spironolactone 25 Mg Tablet) 12.5 mg PO DAILY [facility]; Protocol Last Admin: 03/24/22 08:40 Dose: 12.5 mg Documented By: KIMBERLY Tamsulosin HCl (Tamsulosin Hcl 0.4 Mg Capsule) 0.4 mg PO DAILY [facility] Last Admin: 03/24/22 08:41 Dose: 0.4 mg Documented By: KIMBERLY Labs CBC & Chem 7: 03/18/22 05:39 03/18/22 05:39 Assessment and Plan (1) Chronic a-fib: Status: Acute (2) Perirectal cellulitis: Status: Acute Plan 77yo M with hx chronic HFrEF, AF s/p PPM 2019 AC on rivaroxaban, CKD3, unspecified dementia, brought in after falling in the [place] while intoxicated and developing an open anal wound with fecal drainage admitted for perirectal perforation/cellulitis 1.Perirectal perforation/cellulitis - tolerating diet , fecal drainage through open perianal wound Persists cellulitis resolved. no acute issues r/t perforation 2.Urinary retention - prn bladder scan, straight cath PRN 3.Chronic HFpEF/CHronic AF - well compensated at this time - Echo showed EF of 15-20%? , significant dilatation of ascending aortic size at 5 cm.? continue carvedilol/ rivaroxaban/spironolactone 4.CKD3 -at baseline -follow renals/divalents 5. generalized pain continue Tylenol and prn oxycodone recommend out of bed to chair DVT prophylaxis Rivaroxaban DNR/DNI Patient requires ongoing hospitalization to secure safe discharge to long-term care Quality Stroke Does the patient have a stroke diagnosis?: No VTE Prior VTE?: No VTE Risk Level:: Medical - moderate - high VTE Device Contraindication: N/A - Device Ordered VTE Drug Contraindication: Treatment Not Indicated
--- NOTE | 2022-03-24 14:11 | MHC.CM.PN ---
PT STILL AWAITING LTC PLACEMENT REFERRALS HAVE BEEN BROADCASTED AND UPDATED
[2022-03-24 16:00] VITALS: BP 119/70; PULSE 114; RESP 16; TEMP 36.5; O2SAT 99
[2022-03-24] MEDS: Rivaroxaban 15 MG TABLET PO (17:05)
[2022-03-24 19:15] VITALS: BP 101/76; PULSE 100; RESP 17; TEMP 36.5; O2SAT 95
[2022-03-24] MEDS: Melatonin 3 MG TABLET PO (21:55)
[2022-03-25] MEDS: oxyCODONE HCl Immed Release 5 MG TABLET PO ×3 (02:02→23:20)
[2022-03-25] MEDS: Omeprazole 20 MG CAPSULE.DR PO (05:41)
[2022-03-25 07:09] VITALS: BP 122/64; PULSE 96; RESP 18; TEMP 36.6; O2SAT 100
[2022-03-25] MEDS: Spironolactone 25 MG TABLET 12.5 MG PO (08:46)
[2022-03-25] MEDS: Folic Acid 1 MG TABLET PO (08:46)
[2022-03-25] MEDS: carvediloL 6.25 MG TABLET PO ×2 (08:47→19:59)
[2022-03-25] MEDS: Tamsulosin HCL 0.4 MG CAPSULE PO (08:47)
[2022-03-25] MEDS: Nystatin Powder 15 GM BOTTLE 1 APPL TOPICAL ×3 (08:48→20:02)
--- NOTE | 2022-03-25 11:52 | HO.PM.IMPN ---
Subjective Subjective Date of Service: 03/25/22 Interval History: no acute events overnight patient being followed for long-term care placement tolerating diet with no issues with nausea vomiting, abdominal pain no diarrhea. Review of Systems Review of Systems: Yes all other systems are reviewed and are negative Physical Exam Vital Signs: Vital Signs: Last Vital Signs Temp 98 F 03/25/22 07:09 Pulse 96 03/25/22 07:09 Resp 18 03/25/22 07:09 BP 122/64 03/25/22 07:09 Pulse Ox 100 03/25/22 07:09 O2 Del Method 03/25/22 07:09 O2 Flow Rate 89 03/14/22 19:22 BMI result Body Mass Index 26.4 Const: Other: General? resting comfortably in no acute distress.? Neck supple no JVD. CVS? regular rate rhythm, Respiratory lungs clear to auscultation, no respiratory distress, no wheeze, no rhonchi. Gastrointestinal abdomen soft, nontender, bowel sounds audible, no guarding , no rigidity. Extremities no? edema. Rectal examination open wound perianal area with drainage of soft stool, mild surrounding? erythema Neuro nonfocal, moving all 4 extremity, speech clear. Skin no rash Psych appropriate affect Objective Data Active Medications Acetaminophen (Acetaminophen 325 Mg Tablet) 650 mg PO Q6H PRN PRN Reason: Pain, Mild (Pain Scale 1-3) Last Admin: 03/24/22 21:58 Dose: 650 mg Documented By: VIDAL Benzonatate (Benzonatate 100 Mg Capsule) 100 mg PO TID PRN PRN Reason: Cough Last Admin: 02/22/22 16:03 Dose: 100 mg Documented By: BOGDAN Carvedilol (Carvedilol 6.25 Mg Tablet) 6.25 mg PO BID [facility]; Protocol Last Admin: 03/25/22 08:47 Dose: 6.25 mg Documented By: MEGGAN Folic Acid (Folic Acid 1 Mg Tablet) 1 mg PO DAILY [facility] Last Admin: 03/25/22 08:46 Dose: 1 mg Documented By: MEGGAN Melatonin (Melatonin 3 Mg Tablet) 3 mg PO BEDTIME PRN PRN Reason: Insomnia Last Admin: 03/24/22 21:55 Dose: 3 mg Documented By: VIDAL Nystatin (Nystatin Powder 15 Gm Bottle) 1 appl TOPICAL TID [facility]; Protocol Last Admin: 03/25/22 08:48 Dose: 1 appl Documented By: MEGGAN Omeprazole (Omeprazole 20 Mg Capsule.) 20 mg PO DAILY@0630 [facility] Last Admin: 03/25/22 05:41 Dose: 20 mg Documented By: VIDAL Ondansetron HCl (Ondansetron Hcl 4 Mg/2 Ml Vial) 4 mg IVPUSH Q8H PRN PRN Reason: Nausea and Vomiting Last Admin: 02/27/22 14:51 Dose: 4 mg Documented By: JEAN Oxycodone HCl (Oxycodone Hcl Immed Release 5 Mg Tablet) 5 mg PO Q6H PRN PRN Reason: Pain, Severe (Pain Scale 7-10) Last Admin: 03/24/22 21:55 Dose: 5 mg Documented By: VIDAL Pharmacy Consult (Consult Rx Perform Med Rec) 1 each MISCELLANE ONCE PRN PRN Reason: Consult order Rivaroxaban (Rivaroxaban 15 Mg Tablet) 15 mg PO DAILY@1700 [facility] Last Admin: 03/24/22 17:05 Dose: 15 mg Documented By: CHEMO Sodium Chloride (0.9 % Sodium Chloride Flush 3 Ml Syringe) 3 ml IVFLUSH QSHIFT [facility] Last Admin: 03/25/22 08:48 Dose: Not Given Documented By: MEGGAN Non-Admin Reason: No Access Spironolactone (Spironolactone 25 Mg Tablet) 12.5 mg PO DAILY [facility]; Protocol Last Admin: 03/25/22 08:46 Dose: 12.5 mg Documented By: MEGGAN Tamsulosin HCl (Tamsulosin Hcl 0.4 Mg Capsule) 0.4 mg PO DAILY [facility] Last Admin: 03/25/22 08:47 Dose: 0.4 mg Documented By: MEGGAN Labs CBC & Chem 7: 03/18/22 05:39 03/18/22 05:39 Assessment and Plan (1) Chronic a-fib: Status: Acute (2) Perirectal cellulitis: Status: Acute Plan 77yo M with hx chronic HFrEF, AF s/p PPM 2020 AC on rivaroxaban, CKD3, unspecified dementia, brought in after falling [place] the [place] while intoxicated and developing an open anal wound with fecal drainage admitted for perirectal perforation/cellulitis 1.Perirectal perforation/cellulitis - tolerating diet , fecal drainage through open perianal wound Persists cellulitis resolved. no acute issues r/t perforation 2.Urinary retention - prn bladder scan, straight cath PRN 3.Chronic HFpEF/CHronic AF - well compensated at this time - Echo showed EF of 15-20%? , significant dilatation of ascending aortic size at 5 cm.? continue carvedilol/ rivaroxaban/spironolactone 4.CKD3 -at baseline -follow renals/divalents 5. generalized pain continue Tylenol and prn oxycodone recommend out of bed to chair DVT prophylaxis Rivaroxaban DNR/DNI Patient requires ongoing hospitalization to secure safe discharge to long-term care Quality Stroke Does the patient have a stroke diagnosis?: No VTE Prior VTE?: No VTE Risk Level:: Medical - moderate - high VTE Device Contraindication: N/A - Device Ordered VTE Drug Contraindication: Treatment Not Indicated
[2022-03-25 15:31] VITALS: BP 142/65; PULSE 118; RESP 20; TEMP 36.3; O2SAT 98
[2022-03-25] MEDS: Rivaroxaban 15 MG TABLET PO (15:42)
[2022-03-25] MEDS: Acetaminophen 325 MG TABLET 650 MG PO ×2 (16:47→23:19)
[2022-03-25 19:41] VITALS: BP 100/84; PULSE 79; RESP 18; TEMP 36.3; O2SAT 96
[2022-03-25] MEDS: Melatonin 3 MG TABLET PO (20:00)
[2022-03-26 03:28] VITALS: BP 124/82; PULSE 97; RESP 14; TEMP 36.6; O2SAT 98
[2022-03-26] MEDS: Omeprazole 20 MG CAPSULE.DR PO (05:53)
[2022-03-26 07:32] VITALS: BP 110/78; PULSE 92; RESP 18; TEMP 36.8; O2SAT 96
[2022-03-26] MEDS: Tamsulosin HCL 0.4 MG CAPSULE PO (08:17)
[2022-03-26] MEDS: Spironolactone 25 MG TABLET 12.5 MG PO (08:17)
[2022-03-26] MEDS: carvediloL 6.25 MG TABLET PO ×2 (08:18→22:08)
[2022-03-26] MEDS: Folic Acid 1 MG TABLET PO (08:18)
[2022-03-26] MEDS: oxyCODONE HCl Immed Release 5 MG TABLET PO ×2 (08:19→22:08)
[2022-03-26] MEDS: Nystatin Powder 15 GM BOTTLE 1 APPL TOPICAL ×3 (09:51→22:07)
--- NOTE | 2022-03-26 12:07 | HO.PM.IMPN ---
Subjective Subjective Date of Service: 03/26/22 Interval History: Being followed for placement, no acute issues overnight tolerating diet with no nausea, no vomiting. no abdominal pain, no fevers, no chills, no shortness of breath. Review of Systems Review of Systems: Yes all other systems are reviewed and are negative Physical Exam Vital Signs: Vital Signs: Last Vital Signs Temp 98.3 F 03/26/22 07:32 Pulse 92 03/26/22 07:32 Resp 18 03/26/22 07:32 BP 110/78 03/26/22 07:32 Pulse Ox 96 03/26/22 07:32 O2 Del Method 03/26/22 07:32 O2 Flow Rate 89 03/14/22 19:22 BMI result Body Mass Index 26.4 General? resting comfortably in no acute distress.? Neck supple no JVD. CVS? regular rate rhythm, Respiratory lungs clear to auscultation, no respiratory distress, no wheeze, no rhonchi. Gastrointestinal abdomen soft, nontender, bowel sounds audible, no guarding , no rigidity. Extremities no? edema. Rectal examination open wound perianal area with drainage of soft stool, mild surrounding? erythema Neuro nonfocal, moving all 4 extremity, speech clear. Skin no rash Psych appropriate affect Objective Data Active Medications Acetaminophen (Acetaminophen 325 Mg Tablet) 650 mg PO Q6H PRN PRN Reason: Pain, Mild (Pain Scale 1-3) Last Admin: 03/25/22 23:19 Dose: 650 mg Documented By: MAYRA Benzonatate (Benzonatate 100 Mg Capsule) 100 mg PO TID PRN PRN Reason: Cough Last Admin: 02/22/22 16:03 Dose: 100 mg Documented By: BOGDAN Carvedilol (Carvedilol 6.25 Mg Tablet) 6.25 mg PO BID [facility]; Protocol Last Admin: 03/26/22 08:18 Dose: 6.25 mg Documented By: MEGGAN Folic Acid (Folic Acid 1 Mg Tablet) 1 mg PO DAILY [facility] Last Admin: 03/26/22 08:18 Dose: 1 mg Documented By: MEGGAN Melatonin (Melatonin 3 Mg Tablet) 3 mg PO BEDTIME PRN PRN Reason: Insomnia Last Admin: 03/25/22 20:00 Dose: 3 mg Documented By: MAYRA Nystatin (Nystatin Powder 15 Gm Bottle) 1 appl TOPICAL TID [facility]; Protocol Last Admin: 03/26/22 09:51 Dose: 1 appl Documented By: MEGGAN Omeprazole (Omeprazole 20 Mg Capsule.) 20 mg PO DAILY@0630 [facility] Last Admin: 03/26/22 05:53 Dose: 20 mg Documented By: MAYRA Ondansetron HCl (Ondansetron Hcl 4 Mg/2 Ml Vial) 4 mg IVPUSH Q8H PRN PRN Reason: Nausea and Vomiting Last Admin: 02/27/22 14:51 Dose: 4 mg Documented By: JEAN Pharmacy Consult (Consult Rx Perform Med Rec) 1 each MISCELLANE ONCE PRN PRN Reason: Consult order Rivaroxaban (Rivaroxaban 15 Mg Tablet) 15 mg PO DAILY@1700 [facility] Last Admin: 03/25/22 15:42 Dose: 15 mg Documented By: MEGGAN Sodium Chloride (0.9 % Sodium Chloride Flush 3 Ml Syringe) 3 ml IVFLUSH QSHIFT [facility] Last Admin: 03/26/22 07:13 Dose: Not Given Documented By: MEGGAN Non-Admin Reason: No Access Spironolactone (Spironolactone 25 Mg Tablet) 12.5 mg PO DAILY [facility]; Protocol Last Admin: 03/26/22 08:17 Dose: 12.5 mg Documented By: MEGGAN Tamsulosin HCl (Tamsulosin Hcl 0.4 Mg Capsule) 0.4 mg PO DAILY [facility] Last Admin: 03/26/22 08:17 Dose: 0.4 mg Documented By: MEGGAN Labs CBC & Chem 7: 03/18/22 05:39 03/18/22 05:39 Assessment and Plan (1) CKD (chronic kidney disease) stage 3, GFR 30-59 ml/min: Status: Acute (2) Chronic a-fib: Status: Acute (3) (HFpEF) heart failure with preserved ejection fraction: Status: Acute Plan 77yo M with hx chronic HFrEF, AF s/p PPM 2019 AC on rivaroxaban, CKD3, unspecified dementia, brought in after falling in the [place] while intoxicated and developing an open anal wound with fecal drainage admitted for perirectal perforation/cellulitis 1.Perirectal perforation/cellulitis - tolerating diet , fecal drainage through open perianal wound Persists ? cellulitis resolved. ? no acute issues r/t perforation 2.Urinary retention - prn bladder scan, straight cath PRN 3.Chronic HFpEF/CHronic AF - well compensated at this time - Echo showed EF of 15-20%? , significant dilatation of ascending aortic size at 5 cm.? continue carvedilol/ rivaroxaban/spironolactone 4.CKD3 -at baseline -follow renals/divalents 5. generalized pain continue Tylenol and prn oxycodone recommend out of bed to chair ?DVT prophylaxis Rivaroxaban DNR/DNI Patient requires ongoing hospitalization to secure safe discharge to? long-term care Quality Stroke Does the patient have a stroke diagnosis?: No VTE Prior VTE?: No VTE Risk Level:: Medical - moderate - high VTE Device Contraindication: N/A - Device Ordered VTE Drug Contraindication: Treatment Not Indicated
[2022-03-26] MEDS: Acetaminophen 325 MG TABLET 650 MG PO (14:52)
[2022-03-26 15:55] VITALS: BP 112/78; PULSE 86; RESP 18; TEMP 36.7; O2SAT 96
[2022-03-26] MEDS: Rivaroxaban 15 MG TABLET PO (17:08)
[2022-03-26 19:43] VITALS: BP 126/68; PULSE 99; RESP 18; TEMP 36.8; O2SAT 98
[2022-03-26] MEDS: Melatonin 3 MG TABLET PO (22:08)
[2022-03-27 04:00] VITALS: BP 118/81; PULSE 93; RESP 18; TEMP 36.3; O2SAT 96
[2022-03-27] MEDS: oxyCODONE HCl Immed Release 5 MG TABLET PO ×2 (05:59→14:41)
[2022-03-27] MEDS: Omeprazole 20 MG CAPSULE.DR PO (05:59)
[2022-03-27 07:32] VITALS: BP 94/84; PULSE 96; RESP 17; TEMP 36.3; O2SAT 96
--- NOTE | 2022-03-27 08:05 | HO.PM.IMPN ---
Subjective Subjective Date of Service: 03/27/22 Interval History: Being followed for placement, no acute issues overnight, patient is sitting comfortably tolerating diet with no nausea ,no vomiting, no abdominal pain, no reported fever or chills, oxygenation stable on room air. headache. Review of Systems Denies chest pain Denies shortness of breath Denies fever chills Review of Systems: Yes all other systems are reviewed and are negative Physical Exam Vital Signs: Vital Signs: Last Vital Signs Temp 97.3 F 03/27/22 07:32 Pulse 96 03/27/22 07:32 Resp 17 03/27/22 07:32 BP 94/84 03/27/22 07:32 Pulse Ox 96 03/27/22 07:32 O2 Del Method 03/27/22 07:32 O2 Flow Rate 89 03/14/22 19:22 BMI result Body Mass Index 26.4 Const: Other: General? resting comfortably in no acute distress.? Neck supple no JVD. CVS? regular rate rhythm, Respiratory lungs clear to auscultation, no respiratory distress, no wheeze, no rhonchi. Gastrointestinal abdomen soft, nontender, bowel sounds audible, no guarding , no rigidity. Extremities no? edema. Rectal examination open wound perianal area with drainage of soft stool, mild surrounding? erythema Neuro nonfocal, moving all 4 extremity, speech clear. Skin no rash Psych appropriate affect Objective Data Active Medications Acetaminophen (Acetaminophen 325 Mg Tablet) 650 mg PO Q6H PRN PRN Reason: Pain, Mild (Pain Scale 1-3) Last Admin: 03/26/22 14:52 Dose: 650 mg Documented By: MEGGAN Benzonatate (Benzonatate 100 Mg Capsule) 100 mg PO TID PRN PRN Reason: Cough Last Admin: 02/22/22 16:03 Dose: 100 mg Documented By: BOGDAN Carvedilol (Carvedilol 6.25 Mg Tablet) 6.25 mg PO BID [facility]; Protocol Last Admin: 03/26/22 22:08 Dose: 6.25 mg Documented By: KAYLEEN Folic Acid (Folic Acid 1 Mg Tablet) 1 mg PO DAILY [facility] Last Admin: 03/26/22 08:18 Dose: 1 mg Documented By: MEGGAN Melatonin (Melatonin 3 Mg Tablet) 3 mg PO BEDTIME PRN PRN Reason: Insomnia Last Admin: 03/26/22 22:08 Dose: 3 mg Documented By: KAYLEEN Nystatin (Nystatin Powder 15 Gm Bottle) 1 appl TOPICAL TID [facility]; Protocol Last Admin: 03/26/22 22:07 Dose: 1 appl Documented By: KAYLEEN Omeprazole (Omeprazole 20 Mg Capsule.Dr) 20 mg PO DAILY@0630 [facility] Last Admin: 03/27/22 05:59 Dose: 20 mg Documented By: KAYLEEN Ondansetron HCl (Ondansetron Hcl 4 Mg/2 Ml Vial) 4 mg IVPUSH Q8H PRN PRN Reason: Nausea and Vomiting Last Admin: 02/27/22 14:51 Dose: 4 mg Documented By: JEAN Oxycodone HCl (Oxycodone Hcl Immed Release 5 Mg Tablet) 5 mg PO Q6H PRN PRN Reason: Pain, Moderate (Pain Scale 4-6 Last Admin: 03/27/22 05:59 Dose: 5 mg Documented By: KAYLEEN Pharmacy Consult (Consult Rx Perform Med Rec) 1 each MISCELLANE ONCE PRN PRN Reason: Consult order Rivaroxaban (Rivaroxaban 15 Mg Tablet) 15 mg PO DAILY@1700 [facility] Last Admin: 03/26/22 17:08 Dose: 15 mg Documented By: MEGGAN Sodium Chloride (0.9 % Sodium Chloride Flush 3 Ml Syringe) 3 ml IVFLUSH QSHIFT [facility] Last Admin: 03/26/22 22:08 Dose: Not Given Documented By: KAYLEEN Non-Admin Reason: No Access Spironolactone (Spironolactone 25 Mg Tablet) 12.5 mg PO DAILY [facility]; Protocol Last Admin: 03/26/22 08:17 Dose: 12.5 mg Documented By: MEGGAN Tamsulosin HCl (Tamsulosin Hcl 0.4 Mg Capsule) 0.4 mg PO DAILY [facility] Last Admin: 03/26/22 08:17 Dose: 0.4 mg Documented By: MEGGAN Labs CBC & Chem 7: 03/18/22 05:39 03/18/22 05:39 Assessment and Plan (1) CKD (chronic kidney disease) stage 3, GFR 30-59 ml/min: Status: Acute (2) Chronic a-fib: Status: Acute (3) (HFpEF) heart failure with preserved ejection fraction: Status: Acute Plan 77yo M with hx chronic HFrEF, AF s/p PPM 2019 AC on rivaroxaban, CKD3, unspecified dementia, brought in after falling [place] the [place] while intoxicated and developing an open anal wound with fecal drainage admitted for perirectal perforation/cellulitis 1.Perirectal perforation/cellulitis - tolerating diet , fecal drainage through open perianal wound Persists ? cellulitis resolved. ? no acute issues r/t perforation 2.Urinary retention - prn bladder scan, straight cath PRN 3.Chronic HFpEF/CHronic AF - well compensated at this time - Echo showed EF of 15-20%? , significant dilatation of ascending aortic size at 5 cm.? continue carvedilol/ rivaroxaban/spironolactone 4.CKD3 -at baseline -follow renals/divalents 5. generalized pain continue Tylenol and prn oxycodone recommend out of bed to chair ?DVT prophylaxis Rivaroxaban DNR/DNI Patient requires ongoing hospitalization to secure safe discharge to? long-term care Quality Stroke Does the patient have a stroke diagnosis?: No VTE Prior VTE?: No VTE Risk Level:: Medical - moderate - high VTE Device Contraindication: N/A - Device Ordered VTE Drug Contraindication: Treatment Not Indicated
[2022-03-27] MEDS: Spironolactone 25 MG TABLET 12.5 MG PO (10:00)
[2022-03-27] MEDS: Folic Acid 1 MG TABLET PO (10:00)
[2022-03-27] MEDS: Tamsulosin HCL 0.4 MG CAPSULE PO (10:00)
[2022-03-27] MEDS: carvediloL 6.25 MG TABLET PO ×2 (10:02→20:35)
[2022-03-27] MEDS: Nystatin Powder 15 GM BOTTLE 1 APPL TOPICAL ×3 (10:02→20:36)
[2022-03-27 15:10] VITALS: BP 114/68; PULSE 94; RESP 12; TEMP 36.4; O2SAT 96
[2022-03-27] MEDS: Rivaroxaban 15 MG TABLET PO (17:14)
[2022-03-27 19:47] VITALS: BP 118/77; PULSE 105; RESP 16; TEMP 36.7; O2SAT 96
[2022-03-27] MEDS: Melatonin 3 MG TABLET PO (20:35)
[2022-03-27] MEDS: Acetaminophen 325 MG TABLET 650 MG PO (20:37)
[2022-03-28 04:00] VITALS: BP 119/73; PULSE 90; RESP 17; TEMP 36; O2SAT 94
[2022-03-28] MEDS: Omeprazole 20 MG CAPSULE.DR PO (06:12)
[2022-03-28 07:32] VITALS: BP 131/76; PULSE 98; RESP 17; TEMP 36.1; O2SAT 94
[2022-03-28] MEDS: Folic Acid 1 MG TABLET PO (07:51)
[2022-03-28] MEDS: Spironolactone 25 MG TABLET 12.5 MG PO (07:51)
[2022-03-28] MEDS: carvediloL 6.25 MG TABLET PO ×2 (07:51→20:16)
[2022-03-28] MEDS: Tamsulosin HCL 0.4 MG CAPSULE PO (07:51)
[2022-03-28] MEDS: Nystatin Powder 15 GM BOTTLE 1 APPL TOPICAL ×3 (07:55→20:16)
--- NOTE | 2022-03-28 08:58 | P.PNIM_ITS ---
Subjective Subjective Date of Service: 03/28/22 Interval History: He denies rectal pain, some baseline confusion, no new issues Review of Systems rectal pain [employer] no headache no dizziness CVS no chest pain Physical Exam Vital Signs: Vital Signs: Last Vital Signs Temp 97.0 F 03/28/22 07:32 Pulse 98 03/28/22 07:32 Resp 17 03/28/22 07:32 BP 131/76 03/28/22 07:32 Pulse Ox 94 03/28/22 07:32 O2 Del Method 03/28/22 07:32 O2 Flow Rate 89 03/14/22 19:22 BMI result Body Mass Index 26.4 Const: Other: General? resting comfortably in no acute distress.? Neck supple no JVD. CVS? regular rate rhythm, Respiratory lungs clear to auscultation, no respiratory distress, no wheeze, no rhonchi. Gastrointestinal abdomen soft, nontender, bowel sounds audible, no guarding , no rigidity. Extremities no? edema. Rectal examination open wound perianal area with drainage of soft stool, mild surrounding? erythema Neuro nonfocal, moving all 4 extremity, speech clear. Skin no rash Psych appropriate affect Objective Data Active Medications Acetaminophen (Acetaminophen 325 Mg Tablet) 650 mg PO Q6H PRN PRN Reason: Pain, Mild (Pain Scale 1-3) Last Admin: 03/27/22 20:37 Dose: 650 mg Documented By: KAYLEEN Benzonatate (Benzonatate 100 Mg Capsule) 100 mg PO TID PRN PRN Reason: Cough Last Admin: 02/22/22 16:03 Dose: 100 mg Documented By: BOGDAN Carvedilol (Carvedilol 6.25 Mg Tablet) 6.25 mg PO BID [facility]; Protocol Last Admin: 03/28/22 07:51 Dose: 6.25 mg Documented By: MEGGAN Folic Acid (Folic Acid 1 Mg Tablet) 1 mg PO DAILY [facility] Last Admin: 03/28/22 07:51 Dose: 1 mg Documented By: MEGGAN Melatonin (Melatonin 3 Mg Tablet) 3 mg PO BEDTIME PRN PRN Reason: Insomnia Last Admin: 03/27/22 20:35 Dose: 3 mg Documented By: KAYLEEN Nystatin (Nystatin Powder 15 Gm Bottle) 1 appl TOPICAL TID [facility]; Protocol Last Admin: 03/28/22 07:55 Dose: 1 appl Documented By: MEGGAN Omeprazole (Omeprazole 20 Mg Capsule.Dr) 20 mg PO DAILY@0630 [facility] Last Admin: 03/28/22 06:12 Dose: 20 mg Documented By: KAYLEEN Ondansetron HCl (Ondansetron Hcl 4 Mg/2 Ml Vial) 4 mg IVPUSH Q8H PRN PRN Reason: Nausea and Vomiting Last Admin: 02/27/22 14:51 Dose: 4 mg Documented By: JEAN Oxycodone HCl (Oxycodone Hcl Immed Release 5 Mg Tablet) 5 mg PO Q6H PRN PRN Reason: Pain, Moderate (Pain Scale 4-6 Last Admin: 03/27/22 14:41 Dose: 5 mg Documented By: ERIKA Pharmacy Consult (Consult Rx Perform Med Rec) 1 each MISCELLANE ONCE PRN PRN Reason: Consult order Rivaroxaban (Rivaroxaban 15 Mg Tablet) 15 mg PO DAILY@1700 [facility] Last Admin: 03/27/22 17:14 Dose: 15 mg Documented By: ERIKA Sodium Chloride (0.9 % Sodium Chloride Flush 3 Ml Syringe) 3 ml IVFLUSH QSHIFT [facility] Last Admin: 03/28/22 07:52 Dose: Not Given Documented By: MEGGAN Non-Admin Reason: No Access Spironolactone (Spironolactone 25 Mg Tablet) 12.5 mg PO DAILY [facility]; Protocol Last Admin: 03/28/22 07:51 Dose: 12.5 mg Documented By: MEGGAN Tamsulosin HCl (Tamsulosin Hcl 0.4 Mg Capsule) 0.4 mg PO DAILY [facility] Last Admin: 03/28/22 07:51 Dose: 0.4 mg Documented By: MEGGAN Labs CBC & Chem 7: 03/18/22 05:39 03/18/22 05:39 Assessment and Plan (1) CKD (chronic kidney disease) stage 3, GFR 30-59 ml/min: Status: Acute (2) Chronic a-fib: Status: Acute (3) (HFpEF) heart failure with preserved ejection fraction: Status: Acute Plan 77yo M with hx chronic HFrEF, AF s/p PPM 2020 AC on rivaroxaban, CKD3, unspeci fied dementia, brought in after falling [place] the [place] while intoxicated and developing an open anal wound with fecal drainage admitted for perirectal perforation/cellulitis essentially no new issues 1.Perirectal perforation/cellulitis - tolerating diet , fecal drainage through open perianal wound Persists ? cellulitis resolved. ? no acute issues r/t perforation 2.Urinary retention - prn bladder scan, straight cath PRN 3.Chronic HFpEF/CHronic AF - well compensated at this time - Echo showed EF of 15-20%? , significant dilatation of ascending aortic size at 5 cm.? continue carvedilol/ rivaroxaban/spironolactone 4.CKD3 -at baseline -follow renals/divalents 5. generalized pain continue Tylenol and prn oxycodone recommend out of bed to chair ?DVT prophylaxis Rivaroxaban DNR/DNI Patient requires ongoing hospitalization to secure safe discharge to? long-term care Quality Stroke Does the patient have a stroke diagnosis?: No VTE Prior VTE?: No VTE Risk Level:: Medical - moderate - high VTE Device Contraindication: N/A - Device Ordered VTE Drug Contraindication: Treatment Not Indicated
[2022-03-28 15:22] VITALS: BP 107/73; PULSE 99; RESP 16; TEMP 36.8; O2SAT 98
[2022-03-28] MEDS: Rivaroxaban 15 MG TABLET PO (16:42)
[2022-03-28] MEDS: oxyCODONE HCl Immed Release 5 MG TABLET PO (18:05)
[2022-03-28 19:11] VITALS: BP 131/72; PULSE 99; RESP 17; TEMP 37.1; O2SAT 98
--- NOTE | 2022-03-29 | ECG_ITS ---
Test Reason : tachycardia Blood Pressure : / mmHG Vent. Rate : 099 BPM Atrial Rate : 000 BPM P-R Int : 000 ms QRS Dur : 138 ms QT Int : 392 ms P-R-T Axes : 000 -75 104 degrees QTc Int : 503 ms Atrial fibrillation with premature ventricular or aberrantly conducted complexes Left bundle branch block Abnormal ECG When compared with ECG of 13-MAR-2022 22:06, No significant change was found Referred By: Rangel Belle Electronically Signed By:ANN KING MD
[2022-03-29 04:00] VITALS: BP 130/70; PULSE 75; RESP 18; TEMP 36.4; O2SAT 95
[2022-03-29] MEDS: oxyCODONE HCl Immed Release 5 MG TABLET PO ×2 (04:48→18:22)
[2022-03-29] MEDS: Omeprazole 20 MG CAPSULE.DR PO (06:20)
[2022-03-29 08:00] VITALS: BP 142/74; PULSE 133; RESP 16; TEMP 36.5; O2SAT 96
[2022-03-29] MEDS: Spironolactone 25 MG TABLET 12.5 MG PO (08:52)
[2022-03-29] MEDS: Tamsulosin HCL 0.4 MG CAPSULE PO (08:53)
[2022-03-29] MEDS: Folic Acid 1 MG TABLET PO (08:54)
[2022-03-29] MEDS: carvediloL 6.25 MG TABLET PO ×2 (08:54→20:21)
[2022-03-29] MEDS: Acetaminophen 325 MG TABLET 650 MG PO ×2 (08:55→18:22)
[2022-03-29] MEDS: Nystatin Powder 15 GM BOTTLE 1 APPL TOPICAL ×3 (09:13→20:21)
--- NOTE | 2022-03-29 09:59 | HO.PM.IMPN ---
Subjective Subjective Date of Service: 03/30/22 Interval History: Appears comfortable, no new issues, note tachycardia, no palpitation, had an epsisdode of vomitting yesterday, seems to have resolved Review of Systems no pain no palpitation Physical Exam Vital Signs: Vital Signs: Last Vital Signs Temp 97.7 F 03/29/22 08:00 Pulse 133 H 03/29/22 08:00 Resp 16 03/29/22 08:00 BP 142/74 H 03/29/22 08:00 Pulse Ox 96 03/29/22 08:00 O2 Del Method 03/29/22 08:00 O2 Flow Rate 89 03/14/22 19:22 BMI result Body Mass Index 26.4 Const: Other: General? resting comfortably in no acute distress.? Neck supple no JVD. CVS? regular rate rhythm, Respiratory lungs clear to auscultation, no respiratory distress, no wheeze, no rhonchi. Gastrointestinal abdomen soft, nontender, bowel sounds audible, no guarding , no rigidity. Extremities no? edema. Rectal examination open wound perianal area with drainage of soft stool, mild surrounding? erythema Neuro nonfocal, moving all 4 extremity, speech clear. Skin no rash Psych appropriate affect Objective Data Active Medications Acetaminophen (Acetaminophen 325 Mg Tablet) 650 mg PO Q6H PRN PRN Reason: Pain, Mild (Pain Scale 1-3) Last Admin: 03/29/22 08:55 Dose: 650 mg Documented By: BETY Benzonatate (Benzonatate 100 Mg Capsule) 100 mg PO TID PRN PRN Reason: Cough Last Admin: 02/22/22 16:03 Dose: 100 mg Documented By: BOGDAN Carvedilol (Carvedilol 6.25 Mg Tablet) 6.25 mg PO BID [facility]; Protocol Last Admin: 03/29/22 08:54 Dose: 6.25 mg Documented By: BETY Folic Acid (Folic Acid 1 Mg Tablet) 1 mg PO DAILY [facility] Last Admin: 03/29/22 08:54 Dose: 1 mg Documented By: BETY Melatonin (Melatonin 3 Mg Tablet) 3 mg PO BEDTIME PRN PRN Reason: Insomnia Last Admin: 03/27/22 20:35 Dose: 3 mg Documented By: KAYLEEN Nystatin (Nystatin Powder 15 Gm Bottle) 1 appl TOPICAL TID [facility]; Protocol Last Admin: 03/29/22 09:13 Dose: 1 appl Documented By: BETY Omeprazole (Omeprazole 20 Mg Capsule.) 20 mg PO DAILY@0630 [facility] Last Admin: 03/29/22 06:20 Dose: 20 mg Documented By: KAYLEEN Ondansetron HCl (Ondansetron Hcl 4 Mg/2 Ml Vial) 4 mg IVPUSH Q8H PRN PRN Reason: Nausea and Vomiting Last Admin: 02/27/22 14:51 Dose: 4 mg Documented By: JEAN Oxycodone HCl (Oxycodone Hcl Immed Release 5 Mg Tablet) 5 mg PO Q6H PRN PRN Reason: Pain, Moderate (Pain Scale 4-6 Last Admin: 03/29/22 04:48 Dose: 5 mg Documented By: KAYLEEN Pharmacy Consult (Consult Rx Perform Med Rec) 1 each MISCELLANE ONCE PRN PRN Reason: Consult order Rivaroxaban (Rivaroxaban 15 Mg Tablet) 15 mg PO DAILY@1700 [facility] Last Admin: 03/28/22 16:42 Dose: 15 mg Documented By: MEGGAN Sodium Chloride (0.9 % Sodium Chloride Flush 3 Ml Syringe) 3 ml IVFLUSH QSHIFT [facility] Last Admin: 03/29/22 09:13 Dose: Not Given Documented By: BETY Non-Admin Reason: No Access Spironolactone (Spironolactone 25 Mg Tablet) 12.5 mg PO DAILY [facility]; Protocol Last Admin: 03/29/22 08:52 Dose: 12.5 mg Documented By: BETY Tamsulosin HCl (Tamsulosin Hcl 0.4 Mg Capsule) 0.4 mg PO DAILY [facility] Last Admin: 03/29/22 08:53 Dose: 0.4 mg Documented By: BETY Labs CBC & Chem 7: 03/29/22 14:55 03/29/22 14:55 Assessment and Plan (1) CKD (chronic kidney disease) stage 3, GFR 30-59 ml/min: Status: Acute (2) Chronic a-fib: Status: Acute (3) (HFpEF) heart failure with preserved ejection fraction: Status: Acute Plan 77yo M with hx chronic HFrEF, AF s/p PPM 2019 AC on rivaroxaban, CKD3, unspecified dementia, brought in after falling [place] the [place] while intoxicated and developing an open anal wound with fecal drainage admitted for perirectal perforation/cellulitis essentially no new issues 1.Perirectal perforation/cellulitis - fecal drainage through open perianal wound Persists ? cellulitis resolved. ? no acute issues r/t perforation 2.Urinary retention - prn bladder scan, straight cath PRN 3.Chronic HFpEF/CHronic AF - well compensated at this time - Echo showed EF of 15-20%? , significant dilatation of ascending aortic size at 5 cm.? continue carvedilol/ rivaroxaban/spironolactone 4.CKD3 -at baseline -follow renals/divalents 5. generalized pain continue Tylenol and prn oxycodone recommend out of bed to chair 6. Permanent AFIB--tachycardia, today, get ECG, continue Coreg and Xarelto 7. N/V abd discomfort 03/29, resolved, CT no acute finding routine labs CBC, chem unremarkable' ?DVT prophylaxis Rivaroxaban DNR/DNI Patient requires ongoing hospitalization to secure safe discharge to? long-term care Quality Stroke Does the patient have a stroke diagnosis?: No VTE Prior VTE?: No VTE Risk Level:: Medical - moderate - high VTE Device Contraindication: N/A - Device Ordered VTE Drug Contraindication: Treatment Not Indicated
[2022-03-29] MEDS: ondansetron HCL 4 MG/2 ML VIAL IVPUSH (14:03)
[2022-03-29 14:32] VITALS: BP 98/81; PULSE 103; RESP 16; TEMP 36.9; O2SAT 98
[2022-03-29 15:13] LABS: Hematocrit 33.2 % (42.0-52.0); Hemoglobin 10.5 g/dl (14.0-18.0); Mean Corpuscular HGB Conc 31.6 g/dl (31.0-36.0); Mean Corpuscular Hemoglobin 29.2 pg (27.0-33.0); Mean Corpuscular Volume 92.5 fL (80.0-98.0); Mean Platelet Volume 9.8 fL (9.4-12.4); Platelet Count 237 X10*3/uL (160-400); Red Blood Count 3.59 X10*6/uL (4.60-5.80); Red Cell Distribution Width 19.9 % (11.0-16.0); White Blood Count 6.2 X10*3/uL (4.8-10.8)
[2022-03-29 15:27] LABS: Anion Gap 13 (12-20); Blood Urea Nitrogen 29 mg/dL (9-16); Calcium 8.7 mg/dL (8.4-10.2); Carbon Dioxide 19 mmol/L (22-29); Chloride 104 mmol/L (96-108); Creatinine Clr Calc Pharmacy 41.9; Estimated Glomerular Filt Rate 44; Glucose Random 128 mg/dL (60-115); Potassium 4.6 mmol/L (3.3-5.1); Sodium 131 mmol/L (135-145)
[2022-03-29] MEDS: 0.9 % Sodium Chloride Flush 3 ML SYRINGE IVFLUSH (15:52)
[2022-03-29 16:00] VITALS: BP 110/78; PULSE 96; RESP 17; TEMP 36.3; O2SAT 97
[2022-03-29] MEDS: Rivaroxaban 15 MG TABLET PO (16:51)
[2022-03-29 19:55] VITALS: BP 109/77; PULSE 99; RESP 16; TEMP 36.4; O2SAT 98
[2022-03-30 03:23] VITALS: BP 103/65; PULSE 110; RESP 14; TEMP 36; O2SAT 97
[2022-03-30] MEDS: Omeprazole 20 MG CAPSULE.DR PO (06:05)
[2022-03-30 07:25] VITALS: BP 122/64; PULSE 74; RESP 18; TEMP 36.1; O2SAT 96
[2022-03-30] MEDS: Tamsulosin HCL 0.4 MG CAPSULE PO (08:52)
[2022-03-30] MEDS: Folic Acid 1 MG TABLET PO (08:52)
[2022-03-30] MEDS: carvediloL 6.25 MG TABLET PO (08:52)
[2022-03-30] MEDS: 0.9 % Sodium Chloride Flush 3 ML SYRINGE IVFLUSH ×2 (08:53→17:35)
[2022-03-30] MEDS: Nystatin Powder 15 GM BOTTLE 1 APPL TOPICAL ×2 (08:53→16:19)
[2022-03-30] MEDS: Spironolactone 25 MG TABLET 12.5 MG PO (08:53)
[2022-03-30] MEDS: oxyCODONE HCl Immed Release 5 MG TABLET PO ×2 (11:44→17:35)
--- NOTE | 2022-03-30 11:59 | MHC.CM.PN ---
PT AWAITING LTC PLACEMENT CURRENTLY THERE ARE NO BED OFFERS CM UPDATED AND EXPANDED REFERRAL AWAITING RESPONSES
[2022-03-30 15:45] VITALS: BP 121/63; PULSE 68; RESP 18; TEMP 36.2; O2SAT 97
[2022-03-30] MEDS: Rivaroxaban 15 MG TABLET PO (16:14)
[2022-03-30 19:08] VITALS: BP 111/84; PULSE 97; RESP 18; TEMP 37; O2SAT 96
[2022-03-31] MEDS: 0.9 % Sodium Chloride Flush 3 ML SYRINGE IVFLUSH ×4 (00:24→19:54)
[2022-03-31 03:31] VITALS: BP 112/76; PULSE 50; RESP 16; TEMP 36.3; O2SAT 95
[2022-03-31] MEDS: Omeprazole 20 MG CAPSULE.DR PO (06:09)
[2022-03-31 07:42] VITALS: BP 132/64; PULSE 82; RESP 18; TEMP 36.1; O2SAT 98
[2022-03-31] MEDS: Tamsulosin HCL 0.4 MG CAPSULE PO (08:54)
[2022-03-31] MEDS: carvediloL 6.25 MG TABLET PO ×2 (08:54→19:59)
[2022-03-31] MEDS: Folic Acid 1 MG TABLET PO (08:54)
[2022-03-31] MEDS: Spironolactone 25 MG TABLET 12.5 MG PO (08:54)
[2022-03-31] MEDS: Nystatin Powder 15 GM BOTTLE 1 APPL TOPICAL ×3 (08:56→19:53)
--- NOTE | 2022-03-31 10:52 | HO.PM.IMPN ---
Subjective Subjective Date of Service: 03/31/22 Interval History: comfortable, no new issues Review of Systems no pain no palpitation Physical Exam Vital Signs: Vital Signs: Last Vital Signs Temp 97 F 03/31/22 07:42 Pulse 82 03/31/22 07:42 Resp 18 03/31/22 07:42 BP 132/64 03/31/22 07:42 Pulse Ox 98 03/31/22 07:42 O2 Del Method 03/31/22 07:42 O2 Flow Rate 89 03/14/22 19:22 BMI result Body Mass Index 26.4 Const: Other: General? resting comfortably in no acute distress.? Neck supple no JVD. CVS? regular rate rhythm, Respiratory lungs clear to auscultation, no respiratory distress, no wheeze, no rhonchi. Gastrointestinal abdomen soft, nontender, bowel sounds audible, no guarding , no rigidity. Extremities no? edema. Rectal examination open wound perianal area with drainage of soft stool, mild surrounding? erythema Neuro nonfocal, moving all 4 extremity, speech clear. Skin no rash Psych appropriate affect Objective Data Active Medications Acetaminophen (Acetaminophen 325 Mg Tablet) 650 mg PO Q6H PRN PRN Reason: Pain, Mild (Pain Scale 1-3) Last Admin: 03/29/22 18:22 Dose: 650 mg Documented By: SERA-RIVLA Benzonatate (Benzonatate 100 Mg Capsule) 100 mg PO TID PRN PRN Reason: Cough Last Admin: 02/22/22 16:03 Dose: 100 mg Documented By: BOGDAN Carvedilol (Carvedilol 6.25 Mg Tablet) 6.25 mg PO BID [facility]; Protocol Last Admin: 03/31/22 08:54 Dose: 6.25 mg Documented By: CLAYTON Folic Acid (Folic Acid 1 Mg Tablet) 1 mg PO DAILY [facility] Last Admin: 03/31/22 08:54 Dose: 1 mg Documented By: CLAYTON Melatonin (Melatonin 3 Mg Tablet) 3 mg PO BEDTIME PRN PRN Reason: Insomnia Last Admin: 03/27/22 20:35 Dose: 3 mg Documented By: KAYLEEN Nystatin (Nystatin Powder 15 Gm Bottle) 1 appl TOPICAL TID [facility]; Protocol Last Admin: 03/31/22 08:56 Dose: 1 appl Documented By: CLAYTON Omeprazole (Omeprazole 20 Mg Capsule.) 20 mg PO DAILY@0630 [facility] Last Admin: 03/31/22 06:09 Dose: 20 mg Documented By: MONIQUE Ondansetron HCl (Ondansetron Hcl 4 Mg/2 Ml Vial) 4 mg IVPUSH Q8H PRN PRN Reason: Nausea and Vomiting Last Admin: 03/29/22 14:03 Dose: 4 mg Documented By: DABSong Oxycodone HCl (Oxycodone Hcl Immed Release 5 Mg Tablet) 5 mg PO Q6H PRN PRN Reason: Pain, Moderate (Pain Scale 4-6 Last Admin: 03/30/22 17:35 Dose: 5 mg Documented By: CHARLIE Pharmacy Consult (Consult Rx Perform Med Rec) 1 each MISCELLANE ONCE PRN PRN Reason: Consult order Rivaroxaban (Rivaroxaban 15 Mg Tablet) 15 mg PO DAILY@1700 [facility] Last Admin: 03/30/22 16:14 Dose: 15 mg Documented By: CHARLIE Sodium Chloride (0.9 % Sodium Chloride Flush 3 Ml Syringe) 3 ml IVFLUSH QSHIFT [facility] Last Admin: 03/31/22 08:56 Dose: 3 ml Documented By: CLAYTON Spironolactone (Spironolactone 25 Mg Tablet) 12.5 mg PO DAILY [facility]; Protocol Last Admin: 03/31/22 08:54 Dose: 12.5 mg Documented By: CLAYTON Tamsulosin HCl (Tamsulosin Hcl 0.4 Mg Capsule) 0.4 mg PO DAILY [facility] Last Admin: 03/31/22 08:54 Dose: 0.4 mg Documented By: CLAYTON Labs CBC & Chem 7: 03/29/22 14:55 03/29/22 14:55 Assessment and Plan (1) CKD (chronic kidney disease) stage 3, GFR 30-59 ml/min: Status: Acute (2) Chronic a-fib: Status: Acute (3) (HFpEF) heart failure with preserved ejection fraction: Status: Acute Plan 77yo M with hx chronic HFrEF, AF s/p PPM 2019 AC on rivaroxaban, CKD3, unspecified dementia, brought in after falling [place] the [place] while intoxicated and developing an open anal wound with fecal drainage admitted for perirectal perforation/cellulitis essentially no new issues 1.Perirectal perforation/cellulitis - fecal drainage through open perianal wound Persists ? cellulitis resolved. ? no acute issues r/t perforation 2.Urinary retention - prn bladder scan, straight cath PRN 3.Chronic HFpEF/CHronic AF - well compensated at this time - Echo showed EF of 15-20%? , significant dilatation of ascending aortic size at 5 cm.? continue carvedilol/ rivaroxaban/spironolactone 4.CKD3 -at baseline -follow renals/divalents 5. generalized pain continue Tylenol and prn oxycodone recommend out of bed to chair 6. Permanent AFIB--tachycardia, today, get ECG, continue Coreg and Xarelto 7. N/V abd discomfort 03/29, resolved, CT no acute finding routine labs CBC, chem unremarkable' ?DVT prophylaxis Rivaroxaban DNR/DNI Patient requires ongoing hospitalization to secure safe discharge to? long-term care Quality Stroke Does the patient have a stroke diagnosis?: No VTE Prior VTE?: No VTE Risk Level:: Medical - moderate - high VTE Device Contraindication: N/A - Device Ordered VTE Drug Contraindication: Treatment Not Indicated
[2022-03-31 16:00] VITALS: BP 119/76; PULSE 93; RESP 16; TEMP 36.3; O2SAT 98
[2022-03-31] MEDS: Rivaroxaban 15 MG TABLET PO (17:00)
[2022-03-31 19:29] VITALS: BP 143/76; PULSE 95; RESP 16; TEMP 36.8; O2SAT 96
[2022-03-31] MEDS: Acetaminophen 325 MG TABLET 650 MG PO (19:47)
[2022-04-01] MEDS: Acetaminophen 325 MG TABLET 650 MG PO ×2 (02:09→17:09)
[2022-04-01 04:00] VITALS: BP 102/87; PULSE 78; RESP 20; TEMP 36.2; O2SAT 98
[2022-04-01] MEDS: Omeprazole 20 MG CAPSULE.DR PO (06:14)
[2022-04-01 08:00] VITALS: BP 107/76; PULSE 114; RESP 18; TEMP 36.1; O2SAT 100
[2022-04-01] MEDS: Folic Acid 1 MG TABLET PO (09:25)
[2022-04-01] MEDS: 0.9 % Sodium Chloride Flush 3 ML SYRINGE IVFLUSH ×3 (09:25→22:13)
[2022-04-01] MEDS: carvediloL 6.25 MG TABLET PO ×2 (09:25→22:12)
[2022-04-01] MEDS: Spironolactone 25 MG TABLET 12.5 MG PO (09:25)
[2022-04-01] MEDS: Nystatin Powder 15 GM BOTTLE 1 APPL TOPICAL ×3 (09:26→22:13)
[2022-04-01] MEDS: Tamsulosin HCL 0.4 MG CAPSULE PO (09:26)
--- NOTE | 2022-04-01 09:40 | P.PNIM_ITS ---
Subjective Subjective Date of Service: 04/01/22 Interval History: comfortable, no new issues, staff reports intermittently screems uncontrollably with no good reason as for help without any obvious need Review of Systems no pain no palpitation Physical Exam Vital Signs: Vital Signs: Last Vital Signs Temp 97 F 04/01/22 08:00 Pulse 114 H 04/01/22 08:00 Resp 18 04/01/22 08:00 BP 107/76 04/01/22 08:00 Pulse Ox 100 04/01/22 08:00 O2 Del Method 03/31/22 19:29 O2 Flow Rate 89 03/14/22 19:22 BMI result Body Mass Index 26.4 Const: Other: General? resting comfortably in no acute distress.? Neck supple no JVD. CVS? regular rate rhythm, Respiratory lungs clear to auscultation, no respiratory distress, no wheeze, no rhonchi. Gastrointestinal abdomen soft, nontender, bowel sounds audible, no guarding , no rigidity. Extremities no? edema. Rectal examination open wound perianal area with drainage of soft stool, mild surrounding? erythema Neuro nonfocal, moving all 4 extremity, speech clear. Skin no rash Psych appropriate affect Objective Data Active Medications Acetaminophen (Acetaminophen 325 Mg Tablet) 650 mg PO Q6H PRN PRN Reason: Pain, Mild (Pain Scale 1-3) Last Admin: 04/01/22 02:09 Dose: 650 mg Documented By: AICHA Benzonatate (Benzonatate 100 Mg Capsule) 100 mg PO TID PRN PRN Reason: Cough Last Admin: 02/22/22 16:03 Dose: 100 mg Documented By: BOGDAN Carvedilol (Carvedilol 6.25 Mg Tablet) 6.25 mg PO BID [facility]; Protocol Last Admin: 04/01/22 09:25 Dose: 6.25 mg Documented By: ERIKA Folic Acid (Folic Acid 1 Mg Tablet) 1 mg PO DAILY [facility] Last Admin: 04/01/22 09:25 Dose: 1 mg Documented By: ERIKA Melatonin (Melatonin 3 Mg Tablet) 3 mg PO BEDTIME PRN PRN Reason: Insomnia Last Admin: 03/27/22 20:35 Dose: 3 mg Documented By: KAYLEEN Nystatin (Nystatin Powder 15 Gm Bottle) 1 appl TOPICAL TID [facility]; Protocol Last Admin: 04/01/22 09:26 Dose: 1 appl Documented By: ERIKA Omeprazole (Omeprazole 20 Mg Capsule.) 20 mg PO DAILY@0630 [facility] Last Admin: 04/01/22 06:14 Dose: 20 mg Documented By: AICHA Ondansetron HCl (Ondansetron Hcl 4 Mg/2 Ml Vial) 4 mg IVPUSH Q8H PRN PRN Reason: Nausea and Vomiting Last Admin: 03/29/22 14:03 Dose: 4 mg Documented By: SANDRA Pharmacy Consult (Consult Rx Perform Med Rec) 1 each MISCELLANE ONCE PRN PRN Reason: Consult order Rivaroxaban (Rivaroxaban 15 Mg Tablet) 15 mg PO DAILY@1700 [facility] Last Admin: 03/31/22 17:00 Dose: 15 mg Documented By: CLAYTON Sodium Chloride (0.9 % Sodium Chloride Flush 3 Ml Syringe) 3 ml IVFLUSH QSHIFT [facility] Last Admin: 04/01/22 09:25 Dose: 3 ml Documented By: ERIKA Spironolactone (Spironolactone 25 Mg Tablet) 12.5 mg PO DAILY [facility]; Protocol Last Admin: 04/01/22 09:25 Dose: 12.5 mg Documented By: ERIKA Tamsulosin HCl (Tamsulosin Hcl 0.4 Mg Capsule) 0.4 mg PO DAILY [facility] Last Admin: 04/01/22 09:26 Dose: 0.4 mg Documented By: ERIKA Labs CBC & Chem 7: 03/29/22 14:55 03/29/22 14:55 Assessment and Plan (1) CKD (chronic kidney disease) stage 3, GFR 30-59 ml/min: Status: Acute (2) Chronic a-fib: Status: Acute (3) (HFpEF) heart failure with preserved ejection fraction: Status: Acute Plan 77yo M with hx chronic HFrEF, AF s/p PPM 2019 AC on rivaroxaban, CKD3, unspecified dementia, brought in after falling [place] the [place] while intoxicated and developing an open anal wound with fecal drainage admitted for perirectal perforation/cellulitis essentially no new issues 1.Perirectal perforation/cellulitis - fecal drainage through open perianal wound Persists ? cellulitis resolved. ? no acute issues r/t perforation 2.Urinary retention - prn bladder scan, straight cath PRN 3.Chronic HFpEF/CHronic AF - well compensated at this time - Echo showed EF of 15-20%? , significant dilatation of ascending aortic size at 5 cm.? continue carvedilol/ rivaroxaban/spironolactone 4.CKD3 -at baseline -follow renals/divalents 5. generalized pain continue Tylenol and prn oxycodone recommend out of bed to chair 6. Permanent AFIB--tachycardia, today, get ECG, continue Coreg and Xarelto 7. N/V abd discomfort 03/29, resolved, CT no acute finding routine labs CBC, chem unremarkable' 8. Angitation, hallucinations at time, consider zyprexa or seroquel ?DVT prophylaxis Rivaroxaban DNR/DNI Patient requires ongoing hospitalization to secure safe discharge to? long-term care Time Spent With Patient Time: Total time managing care of this patient today ____ minutes. Quality Stroke Does the patient have a stroke diagnosis?: No VTE Prior VTE?: No VTE Risk Level:: Medical - moderate - high VTE Device Contraindication: N/A - Device Ordered VTE Drug Contraindication: Treatment Not Indicated
[2022-04-01 15:09] VITALS: BP 134/78; PULSE 89; RESP 19; TEMP 36.6; O2SAT 97
[2022-04-01] MEDS: Rivaroxaban 15 MG TABLET PO (17:09)
[2022-04-01 19:15] VITALS: BP 108/76; PULSE 78; RESP 17; TEMP 36.2; O2SAT 99
[2022-04-02 02:42] VITALS: BP 121/59; PULSE 81; RESP 18; TEMP 35.9; O2SAT 97
[2022-04-02] MEDS: Omeprazole 20 MG CAPSULE.DR PO (06:10)
[2022-04-02 07:50] VITALS: BP 109/87; PULSE 106; RESP 17; TEMP 36.3; O2SAT 98
[2022-04-02] MEDS: Spironolactone 25 MG TABLET 12.5 MG PO (08:02)
[2022-04-02] MEDS: Tamsulosin HCL 0.4 MG CAPSULE PO (08:03)
[2022-04-02] MEDS: Folic Acid 1 MG TABLET PO (08:03)
[2022-04-02] MEDS: carvediloL 6.25 MG TABLET PO ×2 (08:03→22:55)
[2022-04-02] MEDS: Nystatin Powder 15 GM BOTTLE 1 APPL TOPICAL ×3 (08:04→22:56)
[2022-04-02] MEDS: 0.9 % Sodium Chloride Flush 3 ML SYRINGE IVFLUSH ×3 (08:04→22:57)
--- NOTE | 2022-04-02 09:20 | HO.PM.IMPN ---
Subjective Subjective Date of Service: 04/03/22 Interval History: comfortable, no new issues, staff reports intermittently screems uncontrollably with no good reason as for help without any obvious need Review of Systems no pain no palpitation Physical Exam Vital Signs: Vital Signs: Last Vital Signs Temp 97.4 F 04/02/22 07:50 Pulse 106 H 04/02/22 07:50 Resp 17 04/02/22 07:50 BP 109/87 04/02/22 07:50 Pulse Ox 98 04/02/22 07:50 O2 Del Method 04/02/22 07:50 O2 Flow Rate 89 03/14/22 19:22 BMI result Body Mass Index 26.4 Const: Other: General? resting comfortably in no acute distress.? Neck supple no JVD. CVS? regular rate rhythm, Respiratory lungs clear to auscultation, no respiratory distress, no wheeze, no rhonchi. Gastrointestinal abdomen soft, nontender, bowel sounds audible, no guarding , no rigidity. Extremities no? edema. Rectal examination open wound perianal area with drainage of soft stool, mild surrounding? erythema Neuro nonfocal, moving all 4 extremity, speech clear. Skin no rash Psych appropriate affect Objective Data Active Medications Acetaminophen (Acetaminophen 325 Mg Tablet) 650 mg PO Q6H PRN PRN Reason: Pain, Mild (Pain Scale 1-3) Last Admin: 04/01/22 17:09 Dose: 650 mg Documented By: ERIKA Benzonatate (Benzonatate 100 Mg Capsule) 100 mg PO TID PRN PRN Reason: Cough Last Admin: 02/22/22 16:03 Dose: 100 mg Documented By: BOGDAN Carvedilol (Carvedilol 6.25 Mg Tablet) 6.25 mg PO BID [facility]; Protocol Last Admin: 04/02/22 08:03 Dose: 6.25 mg Documented By: ERIKA Folic Acid (Folic Acid 1 Mg Tablet) 1 mg PO DAILY [facility] Last Admin: 04/02/22 08:03 Dose: 1 mg Documented By: ERIKA Melatonin (Melatonin 3 Mg Tablet) 3 mg PO BEDTIME PRN PRN Reason: Insomnia Last Admin: 03/27/22 20:35 Dose: 3 mg Documented By: KAYLEEN Nystatin (Nystatin Powder 15 Gm Bottle) 1 appl TOPICAL TID [facility]; Protocol Last Admin: 04/02/22 08:04 Dose: 1 appl Documented By: ERIKA Omeprazole (Omeprazole 20 Mg Capsule.) 20 mg PO DAILY@0630 [facility] Last Admin: 04/02/22 06:10 Dose: 20 mg Documented By: AICHA Ondansetron HCl (Ondansetron Hcl 4 Mg/2 Ml Vial) 4 mg IVPUSH Q8H PRN PRN Reason: Nausea and Vomiting Last Admin: 03/29/22 14:03 Dose: 4 mg Documented By: SANDRA Pharmacy Consult (Consult Rx Perform Med Rec) 1 each MISCELLANE ONCE PRN PRN Reason: Consult order Rivaroxaban (Rivaroxaban 15 Mg Tablet) 15 mg PO DAILY@1700 [facility] Last Admin: 04/01/22 17:09 Dose: 15 mg Documented By: ERIKA Sodium Chloride (0.9 % Sodium Chloride Flush 3 Ml Syringe) 3 ml IVFLUSH QSHIFT [facility] Last Admin: 04/02/22 08:04 Dose: 3 ml Documented By: ERIKA Spironolactone (Spironolactone 25 Mg Tablet) 12.5 mg PO DAILY [facility]; Protocol Last Admin: 04/02/22 08:02 Dose: 12.5 mg Documented By: ERIKA Tamsulosin HCl (Tamsulosin Hcl 0.4 Mg Capsule) 0.4 mg PO DAILY [facility] Last Admin: 04/02/22 08:03 Dose: 0.4 mg Documented By: ERIKA Labs CBC & Chem 7: 03/29/22 14:55 03/29/22 14:55 Assessment and Plan (1) CKD (chronic kidney disease) stage 3, GFR 30-59 ml/min: Status: Acute (2) Chronic a-fib: Status: Acute (3) (HFpEF) heart failure with preserved ejection fraction: Status: Acute Plan 77yo M with hx chronic HFrEF, AF s/p PPM 2019 AC on rivaroxaban, CKD3, unspecified dementia, brought in after falling in the [place] while intoxicated and developing an open anal wound with fecal drainage admitted for perirectal perforation/cellulitis essentially no new issues 1.Perirectal perforation/cellulitis - fecal drainage through open perianal wound Persists ? cellulitis resolved. ? no acute issues r/t perforation 2.Urinary retention - prn bladder scan, straight cath PRN 3.Chronic HFpEF/CHronic AF - well compensated at this time - Echo showed EF of 15-20%? , significant dilatation of ascending aortic size at 5 cm.? continue carvedilol/ rivaroxaban/spironolactone 4.CKD3 -at baseline -follow renals/divalents 5. generalized pain continue Tylenol and prn oxycodone recommend out of bed to chair 6. Permanent AFIB--tachycardia, today, get ECG, continue Coreg and Xarelto 7. N/V abd discomfort 03/29, resolved, CT no acute finding routine labs CBC, chem unremarkable' 8. Angitation, hallucinations at time, consider zyprexa or seroquel ?DVT prophylaxis Rivaroxaban DNR/DNI Patient requires ongoing hospitalization to secure safe discharge to? long-term care Time Spent With Patient Time: Total time managing care of this patient today ____ minutes. Quality Stroke Does the patient have a stroke diagnosis?: No VTE Prior VTE?: No VTE Risk Level:: Medical - moderate - high VTE Device Contraindication: N/A - Device Ordered VTE Drug Contraindication: Treatment Not Indicated
[2022-04-02 16:00] VITALS: BP 108/78; PULSE 95; RESP 17; TEMP 36.7; O2SAT 95
[2022-04-02] MEDS: Rivaroxaban 15 MG TABLET PO (17:03)
[2022-04-02] MEDS: Acetaminophen 325 MG TABLET 650 MG PO ×2 (17:17→23:23)
[2022-04-02 20:00] VITALS: BP 120/62; PULSE 93; RESP 17; TEMP 36.2; O2SAT 96
[2022-04-02] MEDS: Melatonin 3 MG TABLET PO (23:23)
[2022-04-03 04:00] VITALS: BP 130/62; PULSE 75; RESP 17; TEMP 37.1; O2SAT 95
[2022-04-03] MEDS: Acetaminophen 325 MG TABLET 650 MG PO ×3 (05:56→20:51)
[2022-04-03] MEDS: Omeprazole 20 MG CAPSULE.DR PO (05:56)
[2022-04-03 07:19] VITALS: BP 111/81; PULSE 99; RESP 20; TEMP 36.1; O2SAT 97
[2022-04-03] MEDS: Spironolactone 25 MG TABLET 12.5 MG PO (10:09)
[2022-04-03] MEDS: Tamsulosin HCL 0.4 MG CAPSULE PO (10:09)
[2022-04-03] MEDS: Folic Acid 1 MG TABLET PO (10:09)
[2022-04-03] MEDS: 0.9 % Sodium Chloride Flush 3 ML SYRINGE IVFLUSH ×3 (10:09→20:52)
[2022-04-03] MEDS: Nystatin Powder 15 GM BOTTLE 1 APPL TOPICAL ×3 (10:09→23:10)
[2022-04-03] MEDS: carvediloL 6.25 MG TABLET PO ×2 (10:09→18:47)
[2022-04-03 11:00] VITALS: BP 114/91; PULSE 82; RESP 20; O2SAT 96
--- NOTE | 2022-04-03 11:10 | ECG_ITS ---
Test Reason : CHEST PAIN Blood Pressure : / mmHG Vent. Rate : 111 BPM Atrial Rate : 000 BPM P-R Int : 000 ms QRS Dur : 140 ms QT Int : 330 ms P-R-T Axes : 000 -70 106 degrees QTc Int : 448 ms Atrial fibrillation with rapid ventricular response with premature ventricular or aberrantly conducted complexes Left bundle branch block Abnormal ECG When compared with ECG of 29-MAR-2022 10:46, No significant change was found Referred By: Rangel Belle Electronically Signed By:REBECCA MOONEY
--- NOTE | 2022-04-03 11:46 | HO.PM.IMPN ---
Subjective Subjective Date of Service: 04/03/22 Interval History: c/o of chest pain this morning and ECG showed AFIB with RVR, has known history of AFIB Review of Systems no pain no palpitation Physical Exam Vital Signs: Vital Signs: Last Vital Signs Temp 97.0 F 04/03/22 07:19 Pulse 82 04/03/22 11:00 Resp 20 04/03/22 11:00 BP 114/91 H 04/03/22 11:00 Pulse Ox 96 04/03/22 11:00 O2 Del Method 04/03/22 11:00 O2 Flow Rate 89 03/14/22 19:22 BMI result Body Mass Index 26.4 Const: Other: General? resting comfortably in no acute distress.? Neck supple no JVD. CVS? regular rate rhythm, Respiratory lungs clear to auscultation, no respiratory distress, no wheeze, no rhonchi. Gastrointestinal abdomen soft, nontender, bowel sounds audible, no guarding , no rigidity. Extremities no? edema. Rectal examination open wound perianal area with drainage of soft stool, mild surrounding? erythema Neuro nonfocal, moving all 4 extremity, speech clear. Skin no rash Psych appropriate affect Objective Data Active Medications Acetaminophen (Acetaminophen 325 Mg Tablet) 650 mg PO Q6H PRN PRN Reason: Pain, Mild (Pain Scale 1-3) Last Admin: 04/03/22 05:56 Dose: 650 mg Documented By: IACHA Benzonatate (Benzonatate 100 Mg Capsule) 100 mg PO TID PRN PRN Reason: Cough Last Admin: 02/22/22 16:03 Dose: 100 mg Documented By: BOGDAN Carvedilol (Carvedilol 6.25 Mg Tablet) 6.25 mg PO BID [facility]; Protocol Last Admin: 04/03/22 10:09 Dose: 6.25 mg Documented By: MARNI Folic Acid (Folic Acid 1 Mg Tablet) 1 mg PO DAILY [facility] Last Admin: 04/03/22 10:09 Dose: 1 mg Documented By: MARNI Melatonin (Melatonin 3 Mg Tablet) 3 mg PO BEDTIME PRN PRN Reason: Insomnia Last Admin: 04/02/22 23:23 Dose: 3 mg Documented By: AICHA Nystatin (Nystatin Powder 15 Gm Bottle) 1 appl TOPICAL TID [facility]; Protocol Last Admin: 04/03/22 10:09 Dose: 1 appl Documented By: MARNI Omeprazole (Omeprazole 20 Mg Capsule.Dr) 20 mg PO DAILY@0630 [facility] Last Admin: 04/03/22 05:56 Dose: 20 mg Documented By: AICHA Ondansetron HCl (Ondansetron Hcl 4 Mg/2 Ml Vial) 4 mg IVPUSH Q8H PRN PRN Reason: Nausea and Vomiting Last Admin: 03/29/22 14:03 Dose: 4 mg Documented By: SANDRA Pharmacy Consult (Consult Rx Perform Med Rec) 1 each MISCELLANE ONCE PRN PRN Reason: Consult order Rivaroxaban (Rivaroxaban 15 Mg Tablet) 15 mg PO DAILY@1700 [facility] Last Admin: 04/02/22 17:03 Dose: 15 mg Documented By: ERIKA Sodium Chloride (0.9 % Sodium Chloride Flush 3 Ml Syringe) 3 ml IVFLUSH QSHIFT [facility] Last Admin: 04/03/22 10:09 Dose: 3 ml Documented By: MARNI Spironolactone (Spironolactone 25 Mg Tablet) 12.5 mg PO DAILY [facility]; Protocol Last Admin: 04/03/22 10:09 Dose: 12.5 mg Documented By: MARNI Tamsulosin HCl (Tamsulosin Hcl 0.4 Mg Capsule) 0.4 mg PO DAILY [facility] Last Admin: 04/03/22 10:09 Dose: 0.4 mg Documented By: MARNI Labs CBC & Chem 7: 03/29/22 14:55 03/29/22 14:55 Assessment and Plan (1) CKD (chronic kidney disease) stage 3, GFR 30-59 ml/min: Status: Acute (2) Chronic a-fib: Status: Acute (3) (HFpEF) heart failure with preserved ejection fraction: Status: Acute Plan 77yo M with hx chronic HFrEF, AF s/p PPM 2019 AC on rivaroxaban, CKD3, unspecified dementia, brought in after falling in the [place] while intoxicated and developing an open anal wound with fecal drainage admitted for perirectal perforation/cellulitis essentially no new issues 1.Perirectal perforation/cellulitis - fecal drainage through open perianal wound Persists ? cellulitis resolved. ? no acute issues r/t perforation 2.Urinary retention - prn bladder scan, straight cath PRN 3.Chronic HFpEF/CHronic AF - well compensated at this time - Echo showed EF of 15-20%? , significant dilatation of ascending aortic size at 5 cm.? continue carvedilol/ rivaroxaban/spironolactone 4.CKD3 -at baseline -follow renals/divalents 5. generalized pain continue Tylenol and prn oxycodone recommend out of bed to chair 6. Permanent AFIB--tachycardia, today, get ECG, continue Coreg and Xarelto..RVR today presently 103 7. N/V abd discomfort 03/29, resolved, CT no acute finding routine labs CBC, chem unremarkable' 8. Angitation, hallucinations at time, consider zyprexa or seroquel ?DVT prophylaxis Rivaroxaban DNR/DNI Patient requires ongoing hospitalization to secure safe discharge to? long-term care Time Spent With Patient Time: Total time managing care of this patient today ____ minutes. Quality Stroke Does the patient have a stroke diagnosis?: No VTE Prior VTE?: No VTE Risk Level:: Medical - moderate - high VTE Device Contraindication: N/A - Device Ordered VTE Drug Contraindication: Treatment Not Indicated
--- NOTE | 2022-04-03 14:39 | PC.NURSE ---
Patient reporting chest pain to medial chest. and SOB. Vital signs stable. Dr. Belle notified. EKG performed, showing Rapid AFib. Telemonitor ordered. HR 90's-110's AFib. I episode of 6 beat V tach.
[2022-04-03 16:00] VITALS: BP 120/65; PULSE 70; RESP 17; TEMP 36.6; O2SAT 95
[2022-04-03] MEDS: Rivaroxaban 15 MG TABLET PO (16:05)
[2022-04-03 20:00] VITALS: BP 115/75; PULSE 85; RESP 17; TEMP 36.8; O2SAT 95
[2022-04-03] MEDS: Melatonin 3 MG TABLET PO (20:52)
[2022-04-04] MEDS: Acetaminophen 325 MG TABLET 650 MG PO ×3 (02:15→23:26)
[2022-04-04 03:57] VITALS: BP 128/62; PULSE 80; RESP 17; TEMP 36.2; O2SAT 96
[2022-04-04] MEDS: Omeprazole 20 MG CAPSULE.DR PO (05:39)
[2022-04-04 06:40] VITALS: BP 110/73; PULSE 124
[2022-04-04] MEDS: carvediloL 6.25 MG TABLET PO ×2 (06:43→20:15)
--- NOTE | 2022-04-04 07:06 | PC.NURSE ---
Pt had been mostly confused, oriented to self only, sometimes knows he is in the hospital, pt with intermittent agitation and yelling out and tele will show RVR on the 130s-150s but abated if pt calms down, redirected frequently, prn tylenol given for c/o back pain, and Melatonin for c/o insomnia, pt slept at intervals. This morning tele showed RVR that strated on the 150s then to 120s while pt was asleep, BP WNL, Dr. العلي was notified, Coreg po given early as per , reported to next RN.
[2022-04-04 07:54] VITALS: BP 121/64; PULSE 99; RESP 17; TEMP 36.2; O2SAT 99
[2022-04-04] MEDS: Folic Acid 1 MG TABLET PO (09:04)
[2022-04-04] MEDS: Tamsulosin HCL 0.4 MG CAPSULE PO (09:04)
[2022-04-04] MEDS: Spironolactone 25 MG TABLET 12.5 MG PO (09:04)
[2022-04-04] MEDS: Nystatin Powder 15 GM BOTTLE 1 APPL TOPICAL ×3 (09:05→19:58)
--- NOTE | 2022-04-04 13:24 | P.PNIM_ITS ---
Subjective Subjective Date of Service: 04/04/22 Interval History: c/o of chest pain this morning and ECG showed AFIB with RVR, has known history of AFIB Review of Systems no pain no palpitation Physical Exam Vital Signs: Vital Signs: Last Vital Signs Temp 97.1 F 04/04/22 07:54 Pulse 99 04/04/22 07:54 Resp 17 04/04/22 07:54 BP 121/64 04/04/22 07:54 Pulse Ox 99 04/04/22 07:54 O2 Del Method 04/04/22 07:54 O2 Flow Rate 89 03/14/22 19:22 BMI result Body Mass Index 26.4 chest:? regular rate rhythm, Respiratory lungs clear to auscultation, no rales or wheezin Gastrointestinal abdomen soft, nontender, bowel sounds audible, no guarding , no rigidity. Extremities no? edema. Rectal examination open wound perianal area with drainage of soft stool, mild surrounding? erythema Neuro nonfocal, moving all 4 extremity, speech clear. Skin no rash Psych appropriate affect Objective Data Active Medications Acetaminophen (Acetaminophen 325 Mg Tablet) 650 mg PO Q6H PRN PRN Reason: Pain, Mild (Pain Scale 1-3) Last Admin: 04/04/22 02:15 Dose: 650 mg Documented By: MAYRA Benzonatate (Benzonatate 100 Mg Capsule) 100 mg PO TID PRN PRN Reason: Cough Last Admin: 02/22/22 16:03 Dose: 100 mg Documented By: BOGDAN Carvedilol (Carvedilol 6.25 Mg Tablet) 6.25 mg PO BID [facility]; Protocol Last Admin: 04/04/22 06:43 Dose: 6.25 mg Documented By: MAYRA Comments: RVR at 120s, Dr. Díaz agreed to give med early, HQ=787/73 Folic Acid (Folic Acid 1 Mg Tablet) 1 mg PO DAILY [facility] Last Admin: 04/04/22 09:04 Dose: 1 mg Documented By: MYRIAM Melatonin (Melatonin 3 Mg Tablet) 3 mg PO BEDTIME PRN PRN Reason: Insomnia Last Admin: 04/03/22 20:52 Dose: 3 mg Documented By: MAYRA Nystatin (Nystatin Powder 15 Gm Bottle) 1 appl TOPICAL TID [facility]; Protocol Last Admin: 04/04/22 09:05 Dose: 1 appl Documented By: MYRIAM Omeprazole (Omeprazole 20 Mg Capsule.) 20 mg PO DAILY@0630 [facility] Last Admin: 04/04/22 05:39 Dose: 20 mg Documented By: MAYRA Ondansetron HCl (Ondansetron Hcl 4 Mg/2 Ml Vial) 4 mg IVPUSH Q8H PRN PRN Reason: Nausea and Vomiting Last Admin: 03/29/22 14:03 Dose: 4 mg Documented By: SANDRA Pharmacy Consult (Consult Rx Perform Med Rec) 1 each MISCELLANE ONCE PRN PRN Reason: Consult order Rivaroxaban (Rivaroxaban 15 Mg Tablet) 15 mg PO DAILY@1700 [facility] Last Admin: 04/03/22 16:05 Dose: 15 mg Documented By: MARNI Sodium Chloride (0.9 % Sodium Chloride Flush 3 Ml Syringe) 3 ml IVFLUSH QSHIFT [facility] Last Admin: 04/04/22 07:00 Dose: Not Given Documented By: MYRIAM Non-Admin Reason: See Note Spironolactone (Spironolactone 25 Mg Tablet) 12.5 mg PO DAILY [facility]; Protocol Last Admin: 04/04/22 09:04 Dose: 12.5 mg Documented By: MYRIAM Tamsulosin HCl (Tamsulosin Hcl 0.4 Mg Capsule) 0.4 mg PO DAILY [facility] Last Admin: 04/04/22 09:04 Dose: 0.4 mg Documented By: MYRIAM Labs CBC & Chem 7: 03/29/22 14:55 03/29/22 14:55 Assessment and Plan (1) CKD (chronic kidney disease) stage 3, GFR 30-59 ml/min: Status: Acute (2) Chronic a-fib: Status: Acute (3) (HFpEF) heart failure with preserved ejection fraction: Status: Acute Plan 77yo M with hx chronic HFrEF, AF s/p PPM 2019 AC on rivaroxaban, CKD3, unspecified dementia, brought in after falling [place] the [place] while intoxicated and developing an open anal wound with fecal drainage admitted for perirectal perforation/cellulitis essentially no new issues 1.Perirectal perforation/cellulitis - fecal drainage through open perianal wound Persists ? cellulitis resolved. ? no acute issues r/t perforation 2.Urinary retention - prn bladder scan, straight cath PRN 3.Chronic HFpEF/CHronic AF - well compensated at this time - Echo showed EF of 15-20%? , significant dilatation of ascending aortic size at 5 cm.? continue carvedilol/ rivaroxaban/spironolactone 4.CKD3 -at baseline -follow renals/divalents 5. generalized pain continue Tylenol and prn oxycodone recommend out of bed to chair 6. Permanent AFIB--tachycardia, today, get ECG, continue Coreg and Xarelto..RVR today presently 103 7. N/V abd discomfort 03/29, resolved, CT no acute finding routine labs CBC, chem unremarkable' 8. Angitation, hallucinations at time, consider zyprexa or seroquel ?DVT prophylaxis Rivaroxaban DNR/DNI Patient requires ongoing hospitalization to secure safe discharge to? long-term care Time Spent With Patient Time: Total time managing care of this patient today ____ minutes. Quality Stroke Does the patient have a stroke diagnosis?: No VTE Prior VTE?: No VTE Risk Level:: Medical - moderate - high VTE Device Contraindication: N/A - Device Ordered VTE Drug Contraindication: Treatment Not Indicated
--- NOTE | 2022-04-04 14:56 | MHC.CM.PN ---
PER [facility] [place] [employer], [employer] APPLICATION WAS FAXED YESTERDAY 04/03/22.
[2022-04-04 16:00] VITALS: PULSE 87; RESP 20; TEMP 36.6
[2022-04-04] MEDS: Rivaroxaban 15 MG TABLET PO (16:38)
[2022-04-04 19:26] VITALS: BP 153/70; PULSE 89; RESP 18; TEMP 36.4; O2SAT 96
[2022-04-04] MEDS: 0.9 % Sodium Chloride Flush 3 ML SYRINGE IVFLUSH (19:58)
[2022-04-04] MEDS: Melatonin 3 MG TABLET PO (23:26)
[2022-04-05 04:00] VITALS: BP 186/94; PULSE 95; RESP 18; TEMP 36; O2SAT 97
[2022-04-05] MEDS: Omeprazole 20 MG CAPSULE.DR PO (04:54)
[2022-04-05] MEDS: Acetaminophen 325 MG TABLET 650 MG PO ×2 (04:54→20:57)
--- NOTE | 2022-04-05 05:31 | PC.NURSE ---
pt complained 10/10 pain yelling for help given acetaminophen q6 650mg not much helping the pt's ructal pain. notifed.
--- NOTE | 2022-04-05 05:33 | PM.EVENT ---
Event Note Date of Service: 04/05/22 Event Note: pt agitated, yelling in pain all night long. given trazodone and dilaudid Time Spent With Patient Time: Total time managing care of this patient today ____ minutes.
[2022-04-05] MEDS: HYDROmorphone HCl 0.5 MG/0.5 ML SYRINGE IVPUSH (05:48)
[2022-04-05] MEDS: traZODone HCL 50 MG TABLET PO (05:48)
[2022-04-05 07:35] VITALS: BP 111/76; PULSE 100; RESP 18; TEMP 36.3; O2SAT 94
[2022-04-05] MEDS: Spironolactone 25 MG TABLET 12.5 MG PO (09:24)
[2022-04-05] MEDS: Tamsulosin HCL 0.4 MG CAPSULE PO (09:24)
[2022-04-05] MEDS: 0.9 % Sodium Chloride Flush 3 ML SYRINGE IVFLUSH ×3 (09:24→21:02)
[2022-04-05] MEDS: Folic Acid 1 MG TABLET PO (09:25)
[2022-04-05] MEDS: carvediloL 6.25 MG TABLET PO ×2 (09:25→20:59)
[2022-04-05] MEDS: Nystatin Powder 15 GM BOTTLE 1 APPL TOPICAL ×2 (09:25→15:10)
[2022-04-05 15:39] VITALS: BP 103/72; PULSE 98; RESP 17; TEMP 36.1; O2SAT 96
[2022-04-05] MEDS: Rivaroxaban 15 MG TABLET PO (17:43)
[2022-04-05 19:17] VITALS: BP 155/67; PULSE 102; RESP 18; TEMP 36.1; O2SAT 94
[2022-04-05] MEDS: Melatonin 3 MG TABLET PO (20:58)
[2022-04-06] MEDS: Nystatin Powder 15 GM BOTTLE 1 APPL TOPICAL ×4 (00:02→20:14)
[2022-04-06] MEDS: Haloperidol Lactate 5 MG/ML VIAL 2.5 MG IVPUSH (00:28)
[2022-04-06] MEDS: HYDROmorphone HCl 0.5 MG/0.5 ML SYRINGE IM (01:18)
[2022-04-06 03:33] VITALS: BP 112/87; PULSE 100; RESP 16; TEMP 36.4; O2SAT 96
--- NOTE | 2022-04-06 03:56 | PC.NURSE ---
ASSUMED CARE OF PT AT 1900. PT YELLING OFF AND ON WITH MULTIPLE COMPLAINTS. WAS CONFUSED AND ASKING FOR LUNCH. SANDWICH AND JELLO GIVEN WITH IRINA EYAD. PT ATE ALL OF THAT. DR LOPEZ CONTACTED AT 0015 AND HALDOL 2.5 MG IV GIVEN WITH LITTLE EFFECT. PT AGITATED/RESTLESS AND C/O PAIN IN RECTAL AREA. LORRIE CARE GIVEN. PT OOZING SOFT BROWN STOOL FROM RECTUM/LORRIE ANAL WOUND. SKIN IS RED RECTAL AREA. PT C/O BURNING. CONTACTED AGAIN THERE WAS NO RELIEF FROM TYLENOL AND DILAUDID 0.5 MG IV GIVEN. BARRIER CREAM APPLIED TO SITE. MONITOR SHOWS AFIB, RATE 90'S-LOW 100'S. BP STABLE. AFEBRILE.
--- NOTE | 2022-04-06 05:03 | PC.NURSE ---
pt rested for a few hours after receiving dilaudid but awake now and pulling off heart monitor, condom cath etc. He's yelling and very agitated. monitor reapplied. heart rate 130's afib. pt short of breath but keeps pulling off o2 canulla. notified and ashwini ordered. pt to get med and will re-evaluate.
[2022-04-06] MEDS: OLANZapine 10 MG VIAL 5 MG IM (05:25)
[2022-04-06] MEDS: Omeprazole 20 MG CAPSULE.DR PO (05:27)
[2022-04-06] MEDS: Acetaminophen 325 MG TABLET 650 MG PO ×2 (05:27→19:48)
--- NOTE | 2022-04-06 06:09 | PC.NURSE ---
good effect from zyprexa 5mg Im. pt asleep. monitor continues afib, rate 90's to 114. dr gómez updated.
[2022-04-06 07:37] VITALS: BP 112/82; PULSE 106; RESP 16; TEMP 36.4; O2SAT 100
--- NOTE | 2022-04-06 07:40 | P.PNIM_ITS ---
Subjective Subjective Date of Service: 04/05/22 Interval History: ovenight ?pain when asked couldnot able to tell where pain was. Review of Systems no pain no palpitation Physical Exam Vital Signs: Vital Signs: Last Vital Signs BMI result Body Mass Index 26.4 vitals reviewed from 04/05/22 ? chest:? regular rate rhythm, Respiratory lungs clear to auscultation, no rales or wheezin Gastrointestinal abdomen soft, nontender, bowel sounds audible, no guarding , no rigidity. Extremities no? edema. Rectal examination open wound perianal area with drainage of soft stool, mild surrounding? erythema Neuro nonfocal, moving all 4 extremity, speech clear. Skin no rash Psych appropriate affect Objective Data Active Medications Acetaminophen (Acetaminophen 325 Mg Tablet) 650 mg PO Q6H PRN PRN Reason: Pain, Mild (Pain Scale 1-3) Last Admin: 04/06/22 05:27 Dose: 650 mg Documented By: MITCHELL Benzonatate (Benzonatate 100 Mg Capsule) 100 mg PO TID PRN PRN Reason: Cough Last Admin: 02/22/22 16:03 Dose: 100 mg Documented By: BOGDAN Carvedilol (Carvedilol 6.25 Mg Tablet) 6.25 mg PO BID [facility]; Protocol Last Admin: 04/05/22 20:59 Dose: 6.25 mg Documented By: MITCHELL Folic Acid (Folic Acid 1 Mg Tablet) 1 mg PO DAILY [facility] Last Admin: 04/05/22 09:25 Dose: 1 mg Documented By: ERIKA Melatonin (Melatonin 3 Mg Tablet) 3 mg PO BEDTIME PRN PRN Reason: Insomnia Last Admin: 04/05/22 20:58 Dose: 3 mg Documented By: MITCHELL Nystatin (Nystatin Powder 15 Gm Bottle) 1 appl TOPICAL TID [facility]; Protocol Last Admin: 04/06/22 00:02 Dose: 1 appl Documented By: MITCHELL Comments: BEDBATH GIVEN AND NYSTAIN APPLIED WHILE IN ROOM PT ON PRECAUTIONS FOR ESBL Omeprazole (Omeprazole 20 Mg Capsule.) 20 mg PO DAILY@0630 [facility] Last Admin: 04/06/22 05:27 Dose: 20 mg Documented By: MITCHELL Ondansetron HCl (Ondansetron Hcl 4 Mg/2 Ml Vial) 4 mg IVPUSH Q8H PRN PRN Reason: Nausea and Vomiting Last Admin: 03/29/22 14:03 Dose: 4 mg Documented By: SANDRA Pharmacy Consult (Consult Rx Perform Med Rec) 1 each MISCELLANE ONCE PRN PRN Reason: Consult order Rivaroxaban (Rivaroxaban 15 Mg Tablet) 15 mg PO DAILY@1700 [facility] Last Admin: 04/05/22 17:43 Dose: 15 mg Documented By: ERIKA Sodium Chloride (0.9 % Sodium Chloride Flush 3 Ml Syringe) 3 ml IVFLUSH QSHIFT [facility] Last Admin: 04/05/22 21:02 Dose: 3 ml Documented By: MITCHELL Spironolactone (Spironolactone 25 Mg Tablet) 12.5 mg PO DAILY [facility]; Protocol Last Admin: 04/05/22 09:24 Dose: 12.5 mg Documented By: ERIKA Tamsulosin HCl (Tamsulosin Hcl 0.4 Mg Capsule) 0.4 mg PO DAILY [facility] Last Admin: 04/05/22 09:24 Dose: 0.4 mg Documented By: ERIKA Labs CBC & Chem 7: 03/29/22 14:55 03/29/22 14:55 Assessment and Plan (1) CKD (chronic kidney disease) stage 3, GFR 30-59 ml/min: Status: Acute (2) Chronic a-fib: Status: Acute (3) (HFpEF) heart failure with preserved ejection fraction: Status: Acute Plan 77yo M with hx chronic HFrEF, AF s/p PPM 2019 AC on rivaroxaban, CKD3, unspecified dementia, brought in after falling in the [place] while intoxicated and developing an open anal wound with fecal drainage admitted for perirectal perforation/cellulitis essentially no new issues 1.Perirectal perforation/cellulitis - fecal drainage through open perianal wound Persists ? cellulitis resolved. ? no acute issues r/t perforation 2.Urinary retention - prn bladder scan, straight cath PRN 3.Chronic HFpEF/CHronic AF - well compensated at this time - Echo showed EF of 15-20%? , significant dilatation of ascending aortic size at 5 cm.? continue carvedilol/ rivaroxaban/spironolactone 4.CKD3 -at baseline -follow renals/divalents 5. generalized pain continue Tylenol and prn oxycodone recommend out of bed to chair 6. Permanent AFIB--tachycardia, today, get ECG, continue Coreg and Xarelto..RVR today presently 103 7. N/V abd discomfort 03/29, resolved, CT no acute finding routine labs CBC, chem unremarkable' 8. Agitation, hallucinations at time, consider zyprexa or seroquel today no agiatation or hallucination when seen. ?DVT prophylaxis Rivaroxaban DNR/DNI Patient requires ongoing hospitalization to secure safe discharge to? long-term care Time Spent With Patient Time: Total time managing care of this patient today ____ minutes. Quality Stroke Does the patient have a stroke diagnosis?: No VTE Prior VTE?: No VTE Risk Level:: Medical - moderate - high VTE Device Contraindication: N/A - Device Ordered VTE Drug Contraindication: Treatment Not Indicated
[2022-04-06] MEDS: 0.9 % Sodium Chloride Flush 3 ML SYRINGE IVFLUSH ×2 (09:42→20:12)
--- NOTE | 2022-04-06 09:55 | PC.NURSE ---
pt refused all AM meds, pulling at IV - rewrapped for reassurance, removed heart monitor 2x, pt also is not eating per [employer]- take bites and continuously chews without swallowing. MD alonzo
--- NOTE | 2022-04-06 11:09 | PC.NURSE ---
Patient removed IV, MD aware
--- NOTE | 2022-04-06 11:45 | MHC.CM.PN ---
Addendum entered by Ana Maria Resendiz RN 04/06/22 12:02: PATIENT HAS STANDARD AND IS WAITING FOR LTC TO BE SECURED. MAY TAKE 6 WEEKS Original Note: T/W REACHED OUT TO [employer] IS SECURED
--- NOTE | 2022-04-06 14:32 | HO.PM.IMPN ---
Subjective Subjective Date of Service: 04/06/22 Interval History: overnight agitation,pain ? Review of Systems denies any new c/o this morning,wants to sleep no fevers Physical Exam Vital Signs: Vital Signs: Last Vital Signs Temp 97.5 F 04/06/22 07:37 Pulse 106 H 04/06/22 07:37 Resp 16 04/06/22 07:37 BP 112/82 04/06/22 07:37 Pulse Ox 100 04/06/22 07:37 O2 Del Method 04/06/22 07:37 O2 Flow Rate 1.5 04/06/22 07:37 BMI result Body Mass Index 26.4 General? resting comfortably ,wants to sleep? CVS? regular rate rhythm, Respiratory lungs clear to auscultation, heraclio or wheezin. Gastrointestinal abdomen soft, nontender, bowel sounds audible, no guarding , no rigidity. Extremities no? edema. Rectal examination open wound perianal area -no erythema or discharge Neuro nonfocal, moving all 4 extremity, speech clear. Skin no rash Psych -intermittent agiatation especially at night Objective Data Active Medications Acetaminophen (Acetaminophen 325 Mg Tablet) 650 mg PO Q6H PRN PRN Reason: Pain, Mild (Pain Scale 1-3) Last Admin: 04/06/22 05:27 Dose: 650 mg Documented By: MITCHELL Benzonatate (Benzonatate 100 Mg Capsule) 100 mg PO TID PRN PRN Reason: Cough Last Admin: 02/22/22 16:03 Dose: 100 mg Documented By: BOGDAN Carvedilol (Carvedilol 6.25 Mg Tablet) 6.25 mg PO BID [facility]; Protocol Last Admin: 04/06/22 09:54 Dose: Not Given Documented By: ERIKA Non-Admin Reason: Patient Refused Docusate Sodium (Docusate Sodium 100 Mg Capsule) 100 mg PO BEDTIME PRN PRN Reason: Constipation Folic Acid (Folic Acid 1 Mg Tablet) 1 mg PO DAILY [facility] Last Admin: 04/06/22 09:54 Dose: Not Given Documented By: ERIKA Non-Admin Reason: Patient Refused Melatonin (Melatonin 3 Mg Tablet) 3 mg PO BEDTIME PRN PRN Reason: Insomnia Last Admin: 04/05/22 20:58 Dose: 3 mg Documented By: MITCHELL Nystatin (Nystatin Powder 15 Gm Bottle) 1 appl TOPICAL TID [facility]; Protocol Last Admin: 04/06/22 09:42 Dose: 1 appl Documented By: ERIKA Omeprazole (Omeprazole 20 Mg Capsule.) 20 mg PO DAILY@0630 [facility] Last Admin: 04/06/22 05:27 Dose: 20 mg Documented By: MITCHELL Ondansetron HCl (Ondansetron Hcl 4 Mg/2 Ml Vial) 4 mg IVPUSH Q8H PRN PRN Reason: Nausea and Vomiting Last Admin: 03/29/22 14:03 Dose: 4 mg Documented By: DABSong Oxycodone HCl (Oxycodone Hcl Immed Release 5 Mg Tablet) 5 mg PO Q6H PRN PRN Reason: Pain, Mild (Pain Scale 1-3) Pharmacy Consult (Consult Rx Perform Med Rec) 1 each MISCELLANE ONCE PRN PRN Reason: Consult order Rivaroxaban (Rivaroxaban 15 Mg Tablet) 15 mg PO DAILY@1700 [facility] Last Admin: 04/05/22 17:43 Dose: 15 mg Documented By: ERIKA Sodium Chloride (0.9 % Sodium Chloride Flush 3 Ml Syringe) 3 ml IVFLUSH QSHIFT [facility] Last Admin: 04/06/22 09:42 Dose: 3 ml Documented By: ERIKA Spironolactone (Spironolactone 25 Mg Tablet) 12.5 mg PO DAILY [facility]; Protocol Last Admin: 04/06/22 09:54 Dose: Not Given Documented By: ERIKA Non-Admin Reason: Patient Refused Tamsulosin HCl (Tamsulosin Hcl 0.4 Mg Capsule) 0.4 mg PO DAILY [facility] Last Admin: 04/06/22 09:54 Dose: Not Given Documented By: ERIKA Non-Admin Reason: Patient Refused Trazodone HCl (Trazodone Hcl 25 Mg Halftab) 25 mg PO BEDTIME PRN PRN Reason: pain/sleep Labs CBC & Chem 7: 03/29/22 14:55 03/29/22 14:55 Assessment and Plan (1) CKD (chronic kidney disease) stage 3, GFR 30-59 ml/min: Status: Acute (2) Chronic a-fib: Status: Acute (3) (HFpEF) heart failure with preserved ejection fraction: Status: Acute Plan 77yo M with hx chronic HFrEF, AF s/p PPM 2019 AC on rivaroxaban, CKD3, unspecified dementia, brought in after falling in the [place] while intoxicated and developing an open anal wound with fecal drainage admitted for perirectal perforation/cellulitis essentially no new issues 1.Perirectal perforation/cellulitis - fecal drainage through open perianal wound Persists ? cellulitis resolved. ? no acute issues r/t perforation 2.Urinary retention - prn bladder scan, straight cath PRN 3.Chronic HFpEF/CHronic AF - well compensated at this time - Echo showed EF of 15-20%? , significant dilatation of ascending aortic size at 5 cm.? continue carvedilol/ rivaroxaban/spironolactone 4.CKD3 -at baseline -follow renals/divalents 5. generalized pain continue Tylenol and prn oxycodone recommend out of bed to chair 6. Permanent AFIB--tachycardia, today, get ECG, continue Coreg and Xarelto..RVR today presently 103 7. N/V abd discomfort 03/29, resolved, CT no acute finding routine labs CBC, chem unremarkable' 8. Agitation, hallucinations at time, consider zyprexa or seroquel has agitation last night ,also ?generalised pain unlcear added oxycodone ,tylenol ,trazodone for sleep psych eval added ?DVT prophylaxis Rivaroxaban DNR/DNI Patient requires ongoing hospitalization to secure safe discharge to? long-term care Time Spent With Patient Time: Total time managing care of this patient today ____ minutes. Quality Stroke Does the patient have a stroke diagnosis?: No VTE Prior VTE?: No VTE Risk Level:: Medical - moderate - high VTE Device Contraindication: N/A - Device Ordered VTE Drug Contraindication: Treatment Not Indicated
[2022-04-06 15:20] VITALS: BP 127/85; PULSE 76; RESP 18; TEMP 36.8; O2SAT 98
--- NOTE | 2022-04-06 16:14 | P.CNPS_ITS ---
History of Present Illness Date of Service: 04/06/2022 Chief Complaint: Perforation of rectum Reason for Consult: Medication Requesting physician: Tomasa Chand Discussed with referring provider: Yes Sources of Information: patient interviewed and chart reviewed HPI Narrative: Pancho is a 77 yo male who presented to [facility] 02/17/22 and was medically [place] due [place] in[place]ri[place], developing an anal wound with fecal drainage, cellulitis. He has past medical hx of chronic HFrEF, AF s/p PPM 2020 AC on rivaroxaban, CKD3, and unspecified dementia. Pt is awaiting placement for extermination supervisor care. 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 I spoke with pt?s RN, who reports he has been agitated in the context of medical interventions, i.e. this morning he ripped out his IV, heart monitor. Agitation tends to be worse at end of second shift and in the morning. Pt also appears to be hallucinating, talking to family members who are not in the room. I spoke with pt?s son, who is his HCP. He denies that pt has a previous psych hx. He was diagnosed with unspecified dementia in 10/2020 at [facility] [place], he was then discharged to a [facility]. However, in 04/2020 he left to live with his brother in the [place] until his fall that brought him to [facility]. Per pt?s son, pt?s brother and [id number] reported pt would get disoriented at night, screaming, drinking daily. He has a long hx of problematic drinking bx, ?that was his medicine.? His son agrees that pt?s agitation has been progressively getting worse. I spoke with the pt who reports he has ?a lot of anxiety,? but unable to say what he is anxious about. He admits to feeling depressed, however unable to articulate specific sx. Pt?s son believes he has been depressed as an adult, however never sought treatment. Pt says he does not sleep well. He denies hallucinating, says he sees family members and friends in his dreams and talks to them. Per pt?s son, he has heard him talking to his brother who lives in the , however unclear if this happens in a somnolent state. Past Psychiatric History: Denies Medical Evaluation Reviewed: Yes [facility] Medical History Afib Alcohol abuse Anticoagulant long-term use BPH (benign prostatic hyperplasia) Cardiomyopathy CKD (chronic kidney disease) ESBL (extended spectrum beta-lactamase) producing bacteria infection HTN (hypertension) Pacemaker Diagnostics Vital Signs (24Hr): Vital Signs - 24 hr 04/05/22 19:17 04/06/22 03:33 04/06/22 07:37 Temperature 97 F 97.5 F 97.5 F Pulse Rate 102 H 100 106 H Respiratory Rate 18 16 16 Blood Pressure 155/67 H 112/87 112/82 Pulse Oximetry 94 96 100 Oxygen Delivery Method Room Air Room Air Nasal Cannula Oxygen Flow Rate 1.5 04/06/22 15:20 Temperature 98.2 F Pulse Rate 76 Respiratory Rate 18 Blood Pressure 127/85 Pulse Oximetry 98 Oxygen Delivery Method Room Air Oxygen Flow Rate BMI result Body Mass Index 26.4 Labs Results: 03/29/22 14:55 03/29/22 14:55 Imaging Radiology Impressions: ITS Impressions Abdomen/Pelvis CT 02/17/22 14:35 IMPRESSION: Extensive areas of ectopic gas within the soft tissues of the right buttock, right ischiorectal fossa, perineum, and pelvis. Evaluation is limited without IV contrast. The appearance is more consistent with penetrating penetrating trauma then blunt injury, for example from a fall. The penetrating injury likely extends into the pelvis suspected bilateral pelvic sidewall collections. Perforation of the rectum is certainly possible. Recommend surgical consultation. Repeat study utilizing IV and perhaps rectal contrast may be helpful. The findings and recommendations were discussed with Genevieve Hurt MD by telephone at 02/17/2022 4:00 PM and it was ascertained that the content and urgency of the report was understood at the time of direct communication. Head CT 02/17/22 14:36 IMPRESSION: No acute intracranial pathology. Chest X-Ray 02/20/22 13:15 IMPRESSION: * Cardiomegaly. No acute pulmonary edema. * A leadless pacemaker projects over the apex of the right ventricle. * Lung bases are suboptimally evaluated due to the single anterior posterior projection and pulmonary hypoinflation. Abdomen/Pelvis CT 02/21/22 11:54 IMPRESSION: Wall thickening of the rectum. Stable air-fluid level adjacent to the right anterior lateral upper rectum questionable for abscess or perforation. Stable bilateral pelvic sidewall collections containing air and fluid on the right and air on the left. Stable small amount of air just deep to the right lower abdominal wall lateral to the rectus muscles. Fat stranding in the perineum and ischiorectal fat right greater than left. Interval decrease in air in the right ischiorectal fossa and perineal region. Mild wall thickening of the colon questionable for colitis. Bilateral renal cysts. Atherosclerotic disease stage of the lower abdominal aorta and iliac arteries. 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 Fleischner guidelines were followed. Chest X-Ray 02/21/22 11:57 IMPRESSION: Stable enlargement of the cardiac silhouette. Small bilateral pleural effusions. No free air is seen. Abdomen/Pelvis CT 03/29/22 16:25 IMPRESSION: Cardiomegaly and anasarca. Small bilateral pleural effusions are similar compared to 02/21/2022. Interval increased edema of subcutaneous tissues, and increased volume of free fluid in the abdomen and pelvis. No intraperitoneal abscess. The abscess projecting lateral to the rectum extending toward the pelvic sidewall has decreased in size. The previously observed gas in the lower lateral pelvis has resolved, and there are no new perirectal collections. Mental Status Exam Mental Status Exam Narrative: Pt is alert and not oriented to time. In hospital attire, good hygiene but frail appearing. Poor eye contact, inattentive. No Tics or Tremors. No abnormal involuntary movements. Appears uncomfortable, guarded. Non-pressured speech, spontaneous with regular rate and rhythm, normal volume and prosody. No prolonged speech latency or dysarthria. Mood is ?depressed,? affect is constricted. Denies SI/SIB/HI upon inquiry. Denies A/VH or delusional thought content. Thoughts are concrete, linear. Has memory impairment. Insight/ Judgment limited. Medications Medications Current Medications Acetaminophen (Acetaminophen 325 Mg Tablet) 650 mg PO Q6H PRN PRN Reason: Pain, Mild (Pain Scale 1-3) Last Admin: 04/06/22 05:27 Dose: 650 mg Benzonatate (Benzonatate 100 Mg Capsule) 100 mg PO TID PRN PRN Reason: Cough Last Admin: 02/22/22 16:03 Dose: 100 mg Carvedilol (Carvedilol 6.25 Mg Tablet) 6.25 mg PO BID [facility]; Protocol Last Admin: 04/06/22 09:54 Dose: Not Given Docusate Sodium (Docusate Sodium 100 Mg Capsule) 100 mg PO BEDTIME PRN PRN Reason: Constipation Folic Acid (Folic Acid 1 Mg Tablet) 1 mg PO DAILY [facility] Last Admin: 04/06/22 09:54 Dose: Not Given Melatonin (Melatonin 3 Mg Tablet) 3 mg PO BEDTIME PRN PRN Reason: Insomnia Last Admin: 04/05/22 20:58 Dose: 3 mg Nystatin (Nystatin Powder 15 Gm Bottle) 1 appl TOPICAL TID [facility]; Protocol Last Admin: 04/06/22 15:52 Dose: 1 appl Omeprazole (Omeprazole 20 Mg Capsule.Dr) 20 mg PO DAILY@0630 [facility] Last Admin: 04/06/22 05:27 Dose: 20 mg Ondansetron HCl (Ondansetron Hcl 4 Mg/2 Ml Vial) 4 mg IVPUSH Q8H PRN PRN Reason: Nausea and Vomiting Last Admin: 03/29/22 14:03 Dose: 4 mg Oxycodone HCl (Oxycodone Hcl Immed Release 5 Mg Tablet) 5 mg PO Q6H PRN PRN Reason: Pain, Mild (Pain Scale 1-3) Pharmacy Consult (Consult Rx Perform Med Rec) 1 each MISCELLANE ONCE PRN PRN Reason: Consult order Rivaroxaban (Rivaroxaban 15 Mg Tablet) 15 mg PO DAILY@1700 [facility] Last Admin: 04/05/22 17:43 Dose: 15 mg Sodium Chloride (0.9 % Sodium Chloride Flush 3 Ml Syringe) 3 ml IVFLUSH QSHIFT [facility] Last Admin: 04/06/22 15:52 Dose: Not Given Spironolactone (Spironolactone 25 Mg Tablet) 12.5 mg PO DAILY [facility]; Protocol Last Admin: 04/06/22 09:54 Dose: Not Given Tamsulosin HCl (Tamsulosin Hcl 0.4 Mg Capsule) 0.4 mg PO DAILY [facility] Last Admin: 04/06/22 09:54 Dose: Not Given Trazodone HCl (Trazodone Hcl 25 Mg Halftab) 25 mg PO BEDTIME PRN PRN Reason: pain/sleep Allergies Allergies Allergy/AdvReac Type Severity Reaction Status Date / Time No Known Allergies Allergy Verified 02/17/22 12:33 Assessment & Plan Assessment & Plan (1) MDD (major depressive disorder), recurrent episode, moderate: Status: Acute Code(s): F33.1 - Major depressive disorder, recurrent, moderate (2) Dementia with behavioral disturbance: Status: Acute Code(s): F03.918 - Unspecified dementia, unspecified severity, with other behavioral disturbance Plan Plan: Will start Cymbalta 30 mg daily for sx of depression, anxiety, and may help with chronic pain. Will start Seroquel 25 mg Q6H PRN for agitation. Pt reported to be hallucinating, however unclear if this is actual psychotic sx vs happening in somnolent state and is not bothering pt at this time. Psych will follow. I have shared this with Dr. Chand Thank you for this consultation. If you have any questions or concerns, please do not hesitate to contact psychiatry service. Total time managing care of this patient today ____ minutes. Patient educated on: diagnosis, medication risk/benefits and therapeutic strategies
[2022-04-06] MEDS: Rivaroxaban 15 MG TABLET PO (16:42)
[2022-04-06] MEDS: oxyCODONE HCl Immed Release 5 MG TABLET PO (16:44)
[2022-04-06 19:01] VITALS: BP 144/93; PULSE 76; RESP 17; TEMP 36.5; O2SAT 98
[2022-04-06 20:00] VITALS: RESP 18
[2022-04-06] MEDS: carvediloL 6.25 MG TABLET PO (20:12)
[2022-04-07] MEDS: oxyCODONE HCl Immed Release 5 MG TABLET PO ×3 (03:42→20:36)
[2022-04-07 03:58] VITALS: BP 119/79; PULSE 106; RESP 19; TEMP 36.2; O2SAT 97
[2022-04-07] MEDS: Omeprazole 20 MG CAPSULE.DR PO (05:41)
[2022-04-07 08:00] VITALS: BP 132/77; PULSE 89; RESP 19; TEMP 36.7; O2SAT 98
[2022-04-07] MEDS: Tamsulosin HCL 0.4 MG CAPSULE PO (09:18)
[2022-04-07] MEDS: DULoxetine HCl 30 MG CAPSULE.DR PO (09:18)
[2022-04-07] MEDS: carvediloL 6.25 MG TABLET PO ×2 (09:18→20:36)
[2022-04-07] MEDS: Folic Acid 1 MG TABLET PO (09:18)
[2022-04-07] MEDS: Acetaminophen 325 MG TABLET 650 MG PO ×2 (09:19→16:13)
[2022-04-07] MEDS: ondansetron HCL 4 MG/2 ML VIAL IVPUSH (09:19)
--- NOTE | 2022-04-07 09:45 | PM.PNGS ---
Subjective Subjective Date of Service: 04/07/22 Interval history: asked to see pt again for rectal wound now bedbound does not much much anymore as per nursing staff co tinues to have drainage from perirectal wound Physical Exam Vital Signs: Vital Signs: Last Vital Signs Temp 98.1 F 04/07/22 08:00 Pulse 89 04/07/22 08:00 Resp 19 04/07/22 08:00 BP 132/77 04/07/22 08:00 Pulse Ox 98 04/07/22 08:00 O2 Del Method 04/07/22 08:00 O2 Flow Rate 2 04/07/22 03:58 BMI result Body Mass Index 26.4 Const: General: no acute distress Resp: Effort & Inspection: normal respiratory effort Cardio: Rate: regular rate GI: Other: rectal wound with stool c/w fistulous connection, traumatic Palpation (GI): Soft to palpation, not firm and nontender Objective Data Active Medications Acetaminophen (Acetaminophen 325 Mg Tablet) 650 mg PO Q6H PRN PRN Reason: Pain, Mild (Pain Scale 1-3) Last Admin: 04/06/22 19:48 Dose: 650 mg Documented By: MICHAEL Benzonatate (Benzonatate 100 Mg Capsule) 100 mg PO TID PRN PRN Reason: Cough Last Admin: 02/22/22 16:03 Dose: 100 mg Documented By: BOGDAN Carvedilol (Carvedilol 6.25 Mg Tablet) 6.25 mg PO BID [facility]; Protocol Last Admin: 04/06/22 20:12 Dose: 6.25 mg Documented By: MICHAEL Docusate Sodium (Docusate Sodium 100 Mg Capsule) 100 mg PO BEDTIME PRN PRN Reason: Constipation Duloxetine HCl (Duloxetine Hcl 30 Mg Capsule.Dr) 30 mg PO DAILY [facility] Folic Acid (Folic Acid 1 Mg Tablet) 1 mg PO DAILY [facility] Last Admin: 04/06/22 09:54 Dose: Not Given Documented By: ERIKA Non-Admin Reason: Patient Refused Melatonin (Melatonin 3 Mg Tablet) 3 mg PO BEDTIME PRN PRN Reason: Insomnia Last Admin: 04/05/22 20:58 Dose: 3 mg Documented By: MITCHELL Nystatin (Nystatin Powder 15 Gm Bottle) 1 appl TOPICAL TID [facility]; Protocol Last Admin: 04/06/22 20:14 Dose: 1 appl Documented By: MICHAEL Omeprazole (Omeprazole 20 Mg Capsule.) 20 mg PO DAILY@0630 [facility] Last Admin: 04/07/22 05:41 Dose: 20 mg Documented By: DANICA Ondansetron HCl (Ondansetron Hcl 4 Mg/2 Ml Vial) 4 mg IVPUSH Q8H PRN PRN Reason: Nausea and Vomiting Last Admin: 03/29/22 14:03 Dose: 4 mg Documented By: DABSong Oxycodone HCl (Oxycodone Hcl Immed Release 5 Mg Tablet) 5 mg PO Q6H PRN PRN Reason: Pain, Mild (Pain Scale 1-3) Last Admin: 04/07/22 03:42 Dose: 5 mg Documented By: DANICA Pharmacy Consult (Consult Rx Perform Med Rec) 1 each MISCELLANE ONCE PRN PRN Reason: Consult order Quetiapine Fumarate (Quetiapine Fumarate 25 Mg Tablet) 25 mg PO Q6H PRN PRN Reason: agitation, anxiety Rivaroxaban (Rivaroxaban 15 Mg Tablet) 15 mg PO DAILY@1700 [facility] Last Admin: 04/06/22 16:42 Dose: 15 mg Documented By: ERIKA Sodium Chloride (0.9 % Sodium Chloride Flush 3 Ml Syringe) [address] [facility] Last Admin: 04/06/22 20:12 Dose: 3 ml Documented By: MICHAEL Spironolactone (Spironolactone 25 Mg Tablet) 12.5 mg PO DAILY [facility]; Protocol Last Admin: 04/06/22 09:54 Dose: Not Given Documented By: ERIKA Non-Admin Reason: Patient Refused Tamsulosin HCl (Tamsulosin Hcl 0.4 Mg Capsule) 0.4 mg PO DAILY [facility] Last Admin: 04/06/22 09:54 Dose: Not Given Documented By: ERIKA Non-Admin Reason: Patient Refused Trazodone HCl (Trazodone Hcl 25 Mg Halftab) 25 mg PO BEDTIME PRN PRN Reason: pain/sleep Labs CBC & Chem 7: 03/29/22 14:55 03/29/22 14:55 Procedures Date of Service Date of Service: 04/07/22 Progress Note: A&P Assessment and plan (1) Traumatic perforation of rectum: Status: Acute Assessment and Plan: not medically appropriate for diverting stoma in view of CHF wound care perianal hygiene rest of care as per hospitalist Time Spent With Patient Time: Total time managing care of this patient today ____ minutes. Quality Stroke Does the patient have a stroke diagnosis?: No VTE Prior VTE?: No VTE Risk Level:: Medical - moderate - high VTE Device Contraindication: N/A - Device Ordered VTE Drug Contraindication: Treatment Not Indicated
[2022-04-07 09:46] VITALS: BP 110/60; PULSE 128; RESP 20; O2SAT 98
[2022-04-07] MEDS: 0.9 % Sodium Chloride Flush 3 ML SYRINGE IVFLUSH ×3 (09:48→21:57)
[2022-04-07] MEDS: Nystatin Powder 15 GM BOTTLE 1 APPL TOPICAL ×3 (09:48→20:37)
[2022-04-07 11:05] LABS: Anion Gap 21 (12-20); Blood Urea Nitrogen 36 mg/dL (9-16); Calcium 9.2 mg/dL (8.4-10.2); Carbon Dioxide 13 mmol/L (22-29); Chloride 100 mmol/L (96-108); Creatinine Clr Calc Pharmacy 34.6; Estimated Glomerular Filt Rate 36; Glucose Random 107 mg/dL (60-115); Potassium 6.1 mmol/L (3.3-5.1); Sodium 128 mmol/L (135-145)
[2022-04-07] MEDS: Sodium Zirconium Cyclosilicate 10 GM POWD.PACK PO (11:08)
--- NOTE | 2022-04-07 11:28 | MHC.CM.PN ---
LTC via BLS is the discharge plan. The has been secured. LTC is pending. CM will follow.
[2022-04-07 12:28] LABS: Venous Blood Gas Refer to POC result
[2022-04-07 12:29] LABS: VBG Base Excess -8.5 mmol/L; VBG HCO3 16 mmol/L (22-26); VBG pCO2 30 mmHg; VBG pH 7.32 (7.32-7.43); VBG pO2 59 mmHg
--- NOTE | 2022-04-07 13:00 | CA_ITS ---
Transthoracic Echocardiogram Patient (Last, First, Middle): Pancho Huang, Gender: Male Date of : 1945 Age: 77 Procedure Date: 04/07/2022 Procedure Type: Transthoracic Echocardiogram Location: S3E Height: 180.34 cm Weight: 86.18 kg BSA: 2.06 m2 Heart Rate: 100 bpm BP: 110 / 60 mmHg Magazine Feeder: JOEY Referring MD: Tomasa Chand MD Symptoms: viewe IVC for volume status Study Quality: Adequate/Definity ECG Rhythm: Atrial Fibrillation Conclusions: - The left ventricular systolic function is severely decreased. The calculated ejection fraction is 12% by biplane method. - The inferior vena cava is dilated and collapses less than 50% with inspiration. Findings Procedure Information Contrast agent, definity, is being given per protocol without apparent complications. Left Ventricle Severely increased left ventricular cavity size. There is mildly increased left ventricular wall thickness. The left ventricular systolic function is severely decreased. The calculated ejection fraction is 12% by biplane method. There is evidence of regional wall motion abnormalities. Wall Motion Rest Echo Findings The inferoseptal wall, inferolateral wall, the basal inferior, and mid inferior segments are akinetic. Venous The inferior vena cava is dilated and collapses less than 50% with inspiration. Pericardium/Pleural Small pericardial effusion, most prominent over the atria (close to moderate). Prior Study Comparison No significant change compared to prior study dated: 02/20/2022. Measurements 2D Linear Measurements IVSd: 1.09 0.6-0.9/0.6-1.0 cm LVIDd: 6.97 3.9-5.3/4.2-5.9 cm LVIDd Index: 3.38 2.4-3.2/2.2-3.1 cm/m2 LVIDs: 6.27 2.0-3.6 cm LVPWd: 1.24 0.7-1.1 cm LV Mass: 484.38 67-162/88-224 g LV Mass Index: 235.13 43-95/49-115 g/m2 LVOT Diam: 2.50 3.0+(-)1.3 cm 2D Systolic Function EF 4C: 16.60 >55% EF 2C: 7.73 >55% EF BiP: 12.00 >55% LVOT LVOT Pk Twan: 0.84 LVOT Mn Twan: 0.59 LVOT VTI: 0.11 LVOT Pk Grad: 3.00 LVOT Mn Grad: 2.00 LVOT Diam: 2.50 LVOT Area: 4.91 Updated in Other Vendor System with Status of Final James Mejia MD electronically signed on 04/07/2022 5:15:41 PM with status of Final
[2022-04-07 13:29] LABS: Appearance Urine Clear; Color Urine Dark Yellow; Glucose Urine UA Negative (Negative); Leukocyte Esterase Urine Moderate (2+) (Negative); Nitrite Urine Negative (Negative); UMIC TRIGGER UA YES; Urine Blood Small (1+) (Negative); Urine Ketones Trace mg/dL (Negative); Urine Protein Trace mg/dL (Neg-Trace)
[2022-04-07 13:35] LABS: Osmolality, Serum 281 mosm/kg (281-305)
[2022-04-07 13:44] LABS: Bacteria Urine 1+ (None Seen); Hyaline Casts Urine >20 /LPF (0-2); Squamous Epithelial Cell Urine 0-2 /HPF (0-2); WBC Clumps Urine Present; WBC Urine >50 /HPF (0-5)
[2022-04-07 13:53] LABS: Osmolality Urine 454 mosm/kg (373-1093)
--- NOTE | 2022-04-07 14:00 | P.PNIM_ITS ---
Subjective Subjective Date of Service: 04/08/22 Interval History: Seems more calmer today, but still says generalized pain Eating breakfast. Review of Systems Denies any fever or chills or abdominal pain Still has soreness in the rectum area Producing urine Physical Exam Vital Signs: Vital Signs: Last Vital Signs Temp 98.1 F 04/07/22 08:00 Pulse 128 H 04/07/22 09:46 Resp 20 04/07/22 09:46 BP 110/60 04/07/22 09:46 Pulse Ox 98 04/07/22 09:46 O2 Del Method 04/07/22 09:46 O2 Flow Rate 2 04/07/22 03:58 BMI result Body Mass Index 26.4 Appearance: resting comfortably.? not in distress.? cvs: rrr, [id number] , no murmur res: clear to auscultation ,no rhonchii or wheezing abd: no rebound or guarding ,nt, bs present. ext pulses present , no cyanosis. Skin no rash neuro: nonfocal. Objective Data Active Medications Acetaminophen (Acetaminophen 325 Mg Tablet) 650 mg PO Q6H PRN PRN Reason: Pain, Mild (Pain Scale 1-3) Last Admin: 04/07/22 09:19 Dose: 650 mg Documented By: BETY Benzonatate (Benzonatate 100 Mg Capsule) 100 mg PO TID PRN PRN Reason: Cough Last Admin: 02/22/22 16:03 Dose: 100 mg Documented By: BOGDAN Carvedilol (Carvedilol 6.25 Mg Tablet) 6.25 mg PO BID [facility]; Protocol Last Admin: 04/07/22 09:18 Dose: 6.25 mg Documented By: BETY Docusate Sodium (Docusate Sodium 100 Mg Capsule) 100 mg PO BEDTIME PRN PRN Reason: Constipation Duloxetine HCl (Duloxetine Hcl 30 Mg Capsule.Dr) 30 mg PO DAILY [facility] Last Admin: 04/07/22 09:18 Dose: 30 mg Documented By: BETY Folic Acid (Folic Acid 1 Mg Tablet) 1 mg PO DAILY [facility] Last Admin: 04/07/22 09:18 Dose: 1 mg Documented By: BETY Melatonin (Melatonin 3 Mg Tablet) 3 mg PO BEDTIME PRN PRN Reason: Insomnia Last Admin: 04/05/22 20:58 Dose: 3 mg Documented By: MITCHELL Nystatin (Nystatin Powder 15 Gm Bottle) 1 appl TOPICAL TID [facility]; Protocol Last Admin: 04/07/22 09:48 Dose: 1 appl Documented By: BETY Omeprazole (Omeprazole 20 Mg Capsule.Dr) 20 mg PO DAILY@0630 [facility] Last Admin: 04/07/22 05:41 Dose: 20 mg Documented By: DANICA Ondansetron HCl (Ondansetron Hcl 4 Mg/2 Ml Vial) 4 mg IVPUSH Q8H PRN PRN Reason: Nausea and Vomiting Last Admin: 04/07/22 09:19 Dose: 4 mg Documented By: BETY Oxycodone HCl (Oxycodone Hcl Immed Release 5 Mg Tablet) 5 mg PO Q6H PRN PRN Reason: Pain, Mild (Pain Scale 1-3) Last Admin: 04/07/22 09:19 Dose: 5 mg Documented By: BETY Pharmacy Consult (Consult Rx Perform Med Rec) 1 each MISCELLANE ONCE PRN PRN Reason: Consult order Quetiapine Fumarate (Quetiapine Fumarate 25 Mg Tablet) 25 mg PO Q6H PRN PRN Reason: agitation, anxiety Rivaroxaban (Rivaroxaban 15 Mg Tablet) 15 mg PO DAILY@1700 [facility] Last Admin: 04/06/22 16:42 Dose: 15 mg Documented By: ERIKA Sodium Bicarbonate (Sodium Bicarbonate 650 Mg Tablet) 650 mg PO QID [facility] Sodium Chloride (0.9 % Sodium Chloride Flush 3 Ml Syringe) 3 ml IVFLUSH [facility] Last Admin: 04/07/22 09:48 Dose: 3 ml Documented By: BETY Spironolactone (Spironolactone 25 Mg Tablet) 12.5 mg PO DAILY [facility]; Protocol Last Admin: 04/06/22 09:54 Dose: Not Given Documented By: ERIKA Non-Admin Reason: Patient Refused Tamsulosin HCl (Tamsulosin Hcl 0.4 Mg Capsule) 0.4 mg PO DAILY [facility] Last Admin: 04/07/22 09:18 Dose: 0.4 mg Documented By: BETY Trazodone HCl (Trazodone Hcl 25 Mg Halftab) 25 mg PO BEDTIME PRN PRN Reason: pain/sleep Labs CBC & Chem 7: 03/29/22 14:55 04/08/22 07:21 Labs: Laboratory Results - last 24 hr 04/07/22 04/07/22 04/07/22 10:16 10:16 12:23 VBG pH 7.32 VBG pCO2 30 VBG pO2 59 VBG HCO3 16 L VBG O2 Saturation 80.0 VBG Base Excess -8.5 Anion Gap 21 H Estim Creat Clear Calc 34.6 Estimated GFR 36 Random Glucose 107 Osmolality 281 Calcium 9.2 Urine Color Urine Appearance Urine pH Ur Specific [place] Urine Protein Urine Glucose (UA) Urine Ketones Urine Blood Urine Nitrite Ur Leukocyte Esterase Urine RBC Urine WBC Urine WBC Clumps Ur Squamous Epith Cells Urine Bacteria Hyaline Casts Urine Osmolality 04/07/22 04/07/22 13:00 13:00 VBG pH VBG pCO2 VBG pO2 VBG HCO3 VBG O2 Saturation VBG Base Excess Anion Gap Estim Creat Clear Calc Estimated GFR Random Glucose Osmolality Calcium Urine Color Dark Yellow Urine Appearance Clear Urine pH 5.0 Ur Specific [place] 1.020 Urine Protein Trace Urine Glucose (UA) Negative Urine Ketones Trace Urine Blood Small (1+) H Urine Nitrite Negative Ur Leukocyte Esterase Moderate (2+) H Urine RBC 11-20 H Urine WBC >50 H Urine WBC Clumps Present Ur Squamous Epith Cells 0-2 Urine Bacteria 1+ Hyaline Casts >20 Urine Osmolality 454 Assessment and Plan (1) CKD (chronic kidney disease) stage 3, GFR 30-59 ml/min: Status: Acute (2) Chronic a-fib: Status: Acute (3) (HFpEF) heart failure with preserved ejection fraction: Status: Acute Plan 77yo M with hx chronic HFrEF, AF s/p PPM 2019 AC on rivaroxaban, CKD3, unspecified dementia, brought in after falling in the [place] while intoxicated and developing an open anal wound with fecal drainage admitted for perirectal perforation/cellulitis essentially no new issues 1.Perirectal perforation/cellulitis - fecal drainage through open perianal wound Persists ? cellulitis resolved. ? no acute issues r/t perforation 2.Urinary retention - prn bladder scan, straight cath PRN bladder scan seems fine 3.Chronic HFpEF/CHronic AF - well compensated at this time - Echo showed EF of 15-20%? , significant dilatation of ascending aortic size at 5 cm.? continue carvedilol/ rivaroxaban/spironolactone 4.freddie on CKD3,AGMA,low bicarb has some diarrhae -at baseline -follow renals/divalents vbg noted : ph keshia d/w nephro-added bicarb drip 5. generalized pain continue Tylenol and prn oxycodone recommend out of bed to chair 6. Permanent AFIB--tachycardia, today, continue Coreg and Xarelto. 7. N/V abd discomfort 03/29, resolved, CT no acute finding routine labs CBC, chem unremarkable' 8. Agitation, hallucinations at time, consider zyprexa or seroquel has agitation last night ,also ?generalised pain unlcear added oxycodone ,tylenol ,trazodone for sleep psych eval added ?DVT prophylaxis Rivaroxaban DNR/DNI Patient requires ongoing hospitalization : freddie /agma -need bicarb drip,electroly tic abnormalities. Time Spent With Patient Time: Total time managing care of this patient today ____ minutes. Quality Stroke Does the patient have a stroke diagnosis?: No VTE Prior VTE?: No VTE Risk Level:: Medical - moderate - high VTE Device Contraindication: N/A - Device Ordered VTE Drug Contraindication: Treatment Not Indicated
[2022-04-07 14:31] LABS: Potassium Urine Random 73.5 mmol/L; Sodium Urine Random < 20.0 mmol/L
[2022-04-07] MEDS: Sodium Bicarbonate 650 MG TABLET PO ×2 (14:33→16:13)
--- NOTE | 2022-04-07 14:55 | PC.NURSE ---
Echo at bedside.
[2022-04-07 15:27] VITALS: BP 125/86; PULSE 53; RESP 18; TEMP 36.1; O2SAT 93
[2022-04-07] MEDS: Rivaroxaban 15 MG TABLET PO (16:13)
[2022-04-07 17:11] LABS: Chloride Urine Random < 20.0 mmol/L
[2022-04-07] MEDS: Sodium Bicarbonate 8.4% 150 MEQ in Dextrose 5 % 850 ML 50 MEQ IV (17:38)
--- NOTE | 2022-04-07 18:56 | PM.CNNEP ---
History of Present Illness Reason for Consult Consult date: 04/07/22 Chief Complaint Chief complaint: Perforation of rectum History of Present Illness Narrative: RENAL CONSULT Chart Reviewd, case d/w Dr Chand in detail DAWIT, hyperK, hypoNa, NAGAM in setting of diarrhea and perirectal cellulitis REC: IV NaHCO3, lokelma, repeat K, track UOP/renal func Full dictated consult to follow [facility] Past Medical History Medical History Afib Alcohol abuse Anticoagulant long-term use BPH (benign prostatic hyperplasia) Cardiomyopathy CKD (chronic kidney disease) ESBL (extended spectrum beta-lactamase) producing bacteria infection HTN (hypertension) Pacemaker Family History Family History Mother Lung abnormality Family history: reviewed and not pertinent Social History Social History Household Members: Unknown / Unable to assess Housing: Unknown / Unable to assess Unable to assess alcohol history related to: Refusing to respond Alcohol intake: former Patient Tobacco Use Status: Former Tobacco user service: No Meds Allergies Allergy/AdvReac Type Severity Reaction Status Date / Time No Known Allergies Allergy Verified 02/17/22 12:33 Active Medications: Current Medications Acetaminophen (Acetaminophen 325 Mg Tablet) 650 mg PO Q6H PRN PRN Reason: Pain, Mild (Pain Scale 1-3) Last Admin: 04/07/22 16:13 Dose: 650 mg Benzonatate (Benzonatate 100 Mg Capsule) 100 mg PO TID PRN PRN Reason: Cough Last Admin: 02/22/22 16:03 Dose: 100 mg Carvedilol (Carvedilol 6.25 Mg Tablet) 6.25 mg PO BID [facility]; Protocol Last Admin: 04/07/22 09:18 Dose: 6.25 mg Docusate Sodium (Docusate Sodium 100 Mg Capsule) 100 mg PO BEDTIME PRN PRN Reason: Constipation Duloxetine HCl (Duloxetine Hcl 30 Mg Capsule.) 30 mg PO DAILY [facility] Last Admin: 04/07/22 09:18 Dose: 30 mg Folic Acid (Folic Acid 1 Mg Tablet) 1 mg PO DAILY [facility] Last Admin: 04/07/22 09:18 Dose: 1 mg Sodium Bicarbonate 150 meq/ (Dextrose) 1,000 mls @ 50 mls/hr IV .Q20H [facility] Last Admin: 04/07/22 17:38 Dose: 50 mls/hr Melatonin (Melatonin 3 Mg Tablet) 3 mg PO BEDTIME PRN PRN Reason: Insomnia Last Admin: 04/05/22 20:58 Dose: 3 mg Nystatin (Nystatin Powder 15 Gm Bottle) 1 appl TOPICAL TID [facility]; Protocol Last Admin: 04/07/22 14:34 Dose: 1 appl Omeprazole (Omeprazole 20 Mg Capsule.Dr) 20 mg PO DAILY@0630 [facility] Last Admin: 04/07/22 05:41 Dose: 20 mg Ondansetron HCl (Ondansetron Hcl 4 Mg/2 Ml Vial) 4 mg IVPUSH Q8H PRN PRN Reason: Nausea and Vomiting Last Admin: 04/07/22 09:19 Dose: 4 mg Oxycodone HCl (Oxycodone Hcl Immed Release 5 Mg Tablet) 5 mg PO Q6H PRN PRN Reason: Pain, Mild (Pain Scale 1-3) Last Admin: 04/07/22 09:19 Dose: 5 mg Pharmacy Consult (Consult Rx Perform Med Rec) 1 each MISCELLANE ONCE PRN PRN Reason: Consult order Quetiapine Fumarate (Quetiapine Fumarate 25 Mg Tablet) 25 mg PO Q6H PRN PRN Reason: agitation, anxiety Rivaroxaban (Rivaroxaban 15 Mg Tablet) 15 mg PO DAILY@1700 [facility] Last Admin: 04/07/22 16:13 Dose: 15 mg Sodium Chloride (0.9 % Sodium Chloride Flush 3 Ml Syringe) [facility] Last Admin: 04/07/22 14:34 Dose: 3 ml Spironolactone (Spironolactone 25 Mg Tablet) 12.5 mg PO DAILY [facility]; Protocol Last Admin: 04/06/22 09:54 Dose: Not Given Tamsulosin HCl (Tamsulosin Hcl 0.4 Mg Capsule) 0.4 mg PO DAILY [facility] Last Admin: 04/07/22 09:18 Dose: 0.4 mg Trazodone HCl (Trazodone Hcl 25 Mg Halftab) 25 mg PO BEDTIME PRN PRN Reason: pain/sleep Home Medications Medication Instructions Recorded Confirmed Last Taken Type acetaminophen 325 mg tablet 650 mg PO Q6H PRN Pain 02/17/22 02/17/22 Unknown History carvedilol 6.25 mg tablet 1 tab PO BID 02/17/22 02/17/22 02/17/22 History enalapril maleate 2.5 mg tablet 1 tab PO BID 02/17/22 02/17/22 02/17/22 History folic acid 1 mg tablet 1 tab PO DAILY 02/17/22 02/17/22 02/17/22 History furosemide 80 mg tablet 1 tab PO BID 02/17/22 02/17/22 02/17/22 History omeprazole 20 mg capsule,delayed 20 mg PO DAILY@0630 02/17/22 02/17/22 Unknown History release rivaroxaban 15 mg tablet (Xarelto) 15 mg PO DAILY@1700 02/17/22 02/17/22 Unknown History spironolactone 25 mg tablet 1 tab PO DAILY 02/17/22 02/17/22 02/17/22 History tamsulosin 0.4 mg capsule 1 cap PO DAILY 02/17/22 02/17/22 02/17/22 History Physical Exam Vital Signs: Last Vital Signs Temp 97.0 F 04/07/22 15:27 Pulse 53 04/07/22 15:27 Resp 18 04/07/22 15:27 BP 125/86 04/07/22 15:27 Pulse Ox 93 04/07/22 15:27 O2 Del Method 04/07/22 15:27 O2 Flow Rate 2 04/07/22 03:58 BMI result Body Mass Index 26.4 Results Lab Results Result Diagrams: 03/29/22 14:55 04/07/22 10:16 Lab results: Chemistry 04/07/22 10:16 Sodium 128 L Potassium 6.1 H* D Carbon Dioxide 13 L BUN 36 H D Creatinine 1.84 H Calcium 9.2 Urinalysis 04/07/22 13:00 Urine Color Dark Yellow Urine Appearance Clear Urine pH 5.0 Ur Specific [place] 1.020 Urine Protein Trace Urine Glucose (UA) Negative Urine Ketones Trace Urine Blood Small (1+) H Urine Nitrite Negative Ur Leukocyte Esterase Moderate (2+) H Urine RBC 11-20 H Urine WBC >50 H Ur Squamous Epith Cells 0-2 Hyaline Casts >20 Urine Studies 04/07/22 13:00 Urine Osmolality 454 Assessment and Plan Time Spent With Patient Time: Total time managing care of this patient today ____ minutes. Procedures Date of Service Date of Service: 04/07/22
[2022-04-07 19:10] VITALS: BP 109/78; PULSE 90; RESP 17; TEMP 36.3; O2SAT 95
[2022-04-07 23:32] VITALS: BP 120/77; PULSE 97; RESP 14; TEMP 36.4; O2SAT 95
[2022-04-08 03:29] VITALS: BP 104/72; PULSE 84; RESP 16; TEMP 36; O2SAT 96
[2022-04-08] MEDS: Omeprazole 20 MG CAPSULE.DR PO (05:36)
[2022-04-08 07:05] LABS: Anion Gap 14 (12-20); Blood Urea Nitrogen 38 mg/dL (9-16); Calcium 9.1 mg/dL (8.4-10.2); Carbon Dioxide 23 mmol/L (22-29); Chloride 98 mmol/L (96-108); Creatinine Clr Calc Pharmacy 33.9; Estimated Glomerular Filt Rate 35; Glucose Random 129 mg/dL (60-115); Potassium 5.3 mmol/L (3.3-5.1); Sodium 130 mmol/L (135-145)
[2022-04-08 07:08] VITALS: BP 118/92; PULSE 95; RESP 18; TEMP 36.2; O2SAT 99
[2022-04-08 08:01] LABS: Anion Gap 13 (12-20); Blood Urea Nitrogen 36 mg/dL (9-16); Calcium 8.9 mg/dL (8.4-10.2); Carbon Dioxide 20 mmol/L (22-29); Chloride 100 mmol/L (96-108); Creatinine Clr Calc Pharmacy 36.4; Estimated Glomerular Filt Rate 38; Glucose Random 117 mg/dL (60-115); Potassium 5.1 mmol/L (3.3-5.1); Sodium 128 mmol/L (135-145)
[2022-04-08] MEDS: DULoxetine HCl 30 MG CAPSULE.DR PO (10:57)
[2022-04-08] MEDS: carvediloL 6.25 MG TABLET PO ×2 (10:57→21:04)
[2022-04-08] MEDS: Folic Acid 1 MG TABLET PO (10:57)
[2022-04-08] MEDS: Nystatin Powder 15 GM BOTTLE 1 APPL TOPICAL ×3 (10:58→22:31)
[2022-04-08] MEDS: Tamsulosin HCL 0.4 MG CAPSULE PO (10:58)
[2022-04-08] MEDS: 0.9 % Sodium Chloride Flush 3 ML SYRINGE IVFLUSH ×3 (10:59→22:31)
[2022-04-08] MEDS: Albumin Human 25 % 100 ML IV ×3 (11:02→21:09)
--- NOTE | 2022-04-08 11:31 | HO.PM.IMPN ---
Subjective Subjective Date of Service: 04/08/22 Interval History: Seems more calmer today, asking for food no pain endorsed no fever or chills Review of Systems dawit slightly improving po intake also improving,encouraged for hydration Physical Exam Vital Signs: Vital Signs: Last Vital Signs Temp 97.2 F 04/08/22 07:08 Pulse 95 04/08/22 07:08 Resp 18 04/08/22 07:08 BP 118/92 H 04/08/22 07:08 Pulse Ox 99 04/08/22 07:08 O2 Del Method 04/08/22 07:08 O2 Flow Rate 2 04/07/22 03:58 BMI result Body Mass Index 26.4 Appearance: resting comfortably.? not in distress.? cvs: rrr, [id number] , no murmur res: clear to auscultation ,no rhonchii or wheezing abd: no rebound or guarding ,nt, bs present. ext pulses present , no cyanosis. Skin no rash neuro: nonfocal. Objective Data Active Medications Acetaminophen (Acetaminophen 325 Mg Tablet) 650 mg PO Q6H PRN PRN Reason: Pain, Mild (Pain Scale 1-3) Last Admin: 04/07/22 16:13 Dose: 650 mg Documented By: BETY Benzonatate (Benzonatate 100 Mg Capsule) 100 mg PO TID PRN PRN Reason: Cough Last Admin: 02/22/22 16:03 Dose: 100 mg Documented By: BOGDAN Carvedilol (Carvedilol 6.25 Mg Tablet) 6.25 mg PO BID [facility]; Protocol Last Admin: 04/08/22 10:57 Dose: 6.25 mg Documented By: MARNI Docusate Sodium (Docusate Sodium 100 Mg Capsule) 100 mg PO BEDTIME PRN PRN Reason: Constipation Duloxetine HCl (Duloxetine Hcl 30 Mg Capsule.Dr) 30 mg PO DAILY [facility] Last Admin: 04/08/22 10:57 Dose: 30 mg Documented By: MARNI Folic Acid (Folic Acid 1 Mg Tablet) 1 mg PO DAILY [facility] Last Admin: 04/08/22 10:57 Dose: 1 mg Documented By: MARNI Albumin Human (Kedbumin 25 %) 100 mls @ 100 mls/hr IV Q6H [facility] Stop: 04/09/22 03:59 Last Admin: 04/08/22 11:02 Dose: 100 mls/hr Documented By: MARNI Sodium Chloride (Ns) 1,000 mls @ 50 mls/hr IVCONT .Q20H [facility] Melatonin (Melatonin 3 Mg Tablet) 3 mg PO BEDTIME PRN PRN Reason: Insomnia Last Admin: 04/05/22 20:58 Dose: 3 mg Documented By: MITCHELL Nystatin (Nystatin Powder 15 Gm Bottle) 1 appl TOPICAL TID [facility]; Protocol Last Admin: 04/08/22 10:58 Dose: 1 appl Documented By: MARNI Omeprazole (Omeprazole 20 Mg Capsule.Dr) 20 mg PO DAILY@0630 [facility] Last Admin: 04/08/22 05:36 Dose: 20 mg Documented By: ITZEL Ondansetron HCl (Ondansetron Hcl 4 Mg/2 Ml Vial) 4 mg IVPUSH Q8H PRN PRN Reason: Nausea and Vomiting Last Admin: 04/07/22 09:19 Dose: 4 mg Documented By: BETY Oxycodone HCl (Oxycodone Hcl Immed Release 5 Mg Tablet) 5 mg PO Q6H PRN PRN Reason: Pain, Mild (Pain Scale 1-3) Last Admin: 04/07/22 20:36 Dose: 5 mg Documented By: ITZEL Pharmacy Consult (Consult Rx Perform Med Rec) 1 each MISCELLANE ONCE PRN PRN Reason: Consult order Quetiapine Fumarate (Quetiapine Fumarate 25 Mg Tablet) 25 mg PO Q6H PRN PRN Reason: agitation, anxiety Rivaroxaban (Rivaroxaban 15 Mg Tablet) 15 mg PO DAILY@1700 [facility] Last Admin: 04/07/22 16:13 Dose: 15 mg Documented By: BETY Sodium Chloride (0.9 % Sodium Chloride Flush 3 Ml Syringe) 3 ml IVFLUSH QSHIFT [facility] Last Admin: 04/08/22 10:59 Dose: 3 ml Documented By: MARNI Spironolactone (Spironolactone 25 Mg Tablet) 12.5 mg PO DAILY [facility]; Protocol Last Admin: 04/06/22 09:54 Dose: Not Given Documented By: ERIKA Non-Admin Reason: Patient Refused Tamsulosin HCl (Tamsulosin Hcl 0.4 Mg Capsule) 0.4 mg PO DAILY [facility] Last Admin: 04/08/22 10:58 Dose: 0.4 mg Documented By: MARNI Trazodone HCl (Trazodone Hcl 25 Mg Halftab) 25 mg PO BEDTIME PRN PRN Reason: pain/sleep Labs CBC & Chem 7: 03/29/22 14:55 04/08/22 07:21 Labs: Laboratory Results - last 24 hr 04/07/22 04/07/22 04/07/22 10:16 12:23 13:00 VBG pH 7.32 VBG pCO2 30 VBG pO2 59 VBG HCO3 16 L VBG O2 Saturation 80.0 VBG Base Excess -8.5 Anion Gap Estim Creat Clear Calc Estimated GFR Random Glucose Osmolality 281 Calcium Random Cortisol Urine Color Dark Yellow Urine Appearance Clear Urine pH 5.0 Ur Specific [place] 1.020 Urine Protein Trace Urine Glucose (UA) Negative Urine Ketones Trace Urine Blood Small (1+) H Urine Nitrite Negative Ur Leukocyte Esterase Moderate (2+) H Urine RBC 11-20 H Urine WBC >50 H Urine WBC Clumps Present Ur Squamous Epith Cells 0-2 Urine Bacteria 1+ Hyaline Casts >20 Urine Osmolality Ur Random Sodium Ur Random Potassium Ur Random Chloride 04/07/22 04/07/22 04/07/22 13:00 13:00 13:33 VBG pH VBG pCO2 VBG pO2 VBG HCO3 VBG O2 Saturation VBG Base Excess Anion Gap Estim Creat Clear Calc Estimated GFR Random Glucose Osmolality Calcium Random Cortisol 26.0 Urine Color Urine Appearance Urine pH Ur Specific [place] Urine Protein Urine Glucose (UA) Urine Ketones Urine Blood Urine Nitrite Ur Leukocyte Esterase Urine RBC Urine WBC Urine WBC Clumps Ur Squamous Epith Cells Urine Bacteria Hyaline Casts Urine Osmolality 454 Ur Random Sodium < 20.0 Ur Random Potassium 73.5 Ur Random Chloride < 20.0 04/08/22 04/08/22 06:06 07:21 VBG pH VBG pCO2 VBG pO2 VBG HCO3 VBG O2 Saturation VBG Base Excess Anion Gap 14 13 Estim Creat Clear Calc 33.9 36.4 Estimated GFR 35 38 Random Glucose 129 H 117 H Osmolality Calcium 9.1 8.9 Random Cortisol Urine Color Urine Appearance Urine pH Ur Specific [place] Urine Protein Urine Glucose (UA) Urine Ketones Urine Blood Urine Nitrite Ur Leukocyte Esterase Urine RBC Urine WBC Urine WBC Clumps Ur Squamous Epith Cells Urine Bacteria Hyaline Casts Urine Osmolality Ur Random Sodium Ur Random Potassium Ur Random Chloride Assessment and Plan (1) Hyperkalemia: Status: Acute (2) Hyponatremia: Status: Acute (3) DAWIT (acute kidney injury): Status: Acute (4) High anion gap metabolic acidosis: Status: Acute (5) CKD (chronic kidney disease) stage 3, GFR 30-59 ml/min: Status: Acute Plan 77yo M with hx chronic HFrEF, AF s/p PPM 2019 AC on rivaroxaban, CKD3, unspecified dementia, brought in after falling in the [place] while intoxicated and developing an open anal wound with fecal drainage admitted for perirectal perforation/cellulitis essentially no new issues 1.Perirectal perforation/cellulitis -? fecal drainage through open perianal wound Persists ? cellulitis resolved. ? no acute issues r/t perforation 2.Urinary retention - prn bladder scan, straight cath PRN bladder scan seems fine 3.Chronic HFpEF/CHronic AF - well compensated at this time - Echo showed EF of 15-20%? , significant dilatation of ascending aortic size at 5 cm.? continue carvedilol/ rivaroxaban/spironolactone 4.dawit on CKD3,hyponatremia hyperkalemia ,AGMA,low bicarb-resolved with bicarb drip. has some diarrhae -at baseline -follow renals/divalents vbg noted : ph boderline d/w nephro-chnaged ivf to ns due to hyponatremia . added albumin 5. generalized pain continue Tylenol and prn oxycodone recommend out of bed to chair 6. Permanent AFIB--tachycardia, today, continue Coreg and Xarelto. 7. N/V abd discomfort 03/29, resolved, CT no acute finding routine labs CBC, chem unremarkable' 8. Agitation, hallucinations at time, consider zyprexa or seroquel has agitation last night ,also ?generalised pain unlcear added oxycodone ,tylenol ,trazodone for sleep psych eval added ?DVT prophylaxis Rivaroxaban DNR/DNI Patient requires ongoing hospitalization : hyponatremia /dawit -need ivf ns ,electrolytic abnormalities moniterin. Time Spent With Patient Time: Total time managing care of this patient today ____ minutes. Quality Stroke Does the patient have a stroke diagnosis?: No VTE Prior VTE?: No VTE Risk Level:: Medical - moderate - high VTE Device Contraindication: N/A - Device Ordered VTE Drug Contraindication: Treatment Not Indicated
[2022-04-08] MEDS: 0.9 % Sodium Chloride 1,000 ML 50 ML IVCONT (13:10)
--- NOTE | 2022-04-08 14:45 | PM.PNNEP ---
Subjective Subjective Date of Service: 04/08/22 Interval history: Seen and examined, events noted Physical Exam Vital Signs: Vital Signs: Last Vital Signs Temp 97.2 F 04/08/22 07:08 Pulse 95 04/08/22 07:08 Resp 18 04/08/22 07:08 BP 118/92 H 04/08/22 07:08 Pulse Ox 99 04/08/22 07:08 O2 Del Method 04/08/22 07:08 O2 Flow Rate 2 04/07/22 03:58 BMI result Body Mass Index 26.4 Const: Other: General? resting comfortably in no acute distress.? Neck supple no JVD. CVS? regular rate rhythm, Respiratory lungs clear to auscultation, no respiratory distress, no wheeze, no rhonchi. Gastrointestinal abdomen soft, nontender, bowel sounds audible, no guarding , no rigidity. Extremities no? edema. Rectal examination open wound perianal area with drainage of soft stool, mild surrounding? erythema Neuro nonfocal, moving all 4 extremity, speech clear. Skin no rash Psych appropriate affect General: cooperative, comfortable, no acute distress, well developed and lethargic Nutritional Appearance: well nourished Orientation/consciousness: patient oriented x3 and lethargic Limitations: no limitations and altered mental status HEENT: Other: Unremarkable Head: Yes normal to inspection, Yes normocephalic and Yes atraumatic Face and sinus: Yes normal facial exam Mouth: Normal oral and palatal mucosa present Teeth and gingiva: dentition normal Eyes: General: appearance normal, both eyes and all related structures Pupils: Equal, round and reactive pupils present Neck: Neck: Yes normal visual inspection Chest: Chest palpation & inspection: normal inspection of the chest Resp: Other: Clear to auscultation bilaterally no rales rhonchi or wheezes Effort & Inspection: normal respiratory effort Auscultation: clear to auscultation bilaterally and crackles Cardio: Other: No S4; positive S1-S2; no S3 murmurs rubs or gallops Palpation: normal PMI Rate: regular rate Rhythm: regular rhythm and abnormal rhythm Heart sounds: S1 normal heart sound present, S2 normal heart sound present, no gallops, Murmur heart sound present systolic II/ and no rubs GI: Other: rectal wound with stool c/w fistulous connection, traumatic Inspection: Yes normal to inspection Palpation (GI): Soft to palpation, not firm, nontender, no guarding, not rigid and Pulsatile mass present Percussion: Yes normal to percussion Auscultation: normal bowel sounds : Other: open wound perianal area with drainage of soft stool, mild surrounding redness General: Yes no CVA tenderness Back/Spine/Pelvis: Other: Granulating wound with fecalent discharge Back: no CVA tenderness Skin: Other: Warm, dry, no rash, normal color General skin exam: no rashes or lesions noted Neuro: Other: patient somnolent but arousable, unable to assess neuro exam General: patient oriented x3 and moves all extremities Cranial nerves: Yes Equal, round and reactive pupils present Extrem: Other: No edema bilaterally General: Yes normal to inspection, Yes no clubbing, cyanosis or edema and Yes no pedal edema Psych: Appearance: grossly normal Mental Status: mental status grossly abnormal Objective Data Labs CBC & Chem 7: 03/29/22 14:55 04/08/22 07:21 Labs: Laboratory Results - last 24 hr 04/07/22 04/08/22 04/08/22 13:00 06:06 07:21 Sodium 130 L 128 L Potassium 5.3 H 5.1 Chloride 98 100 Carbon Dioxide 23 20 L Anion Gap 14 13 BUN 38 H 36 H Creatinine 1.88 H 1.75 H Estim Creat Clear Calc 33.9 36.4 Estimated GFR 35 38 Random Glucose 129 H 117 H Calcium 9.1 8.9 Ur Random Chloride < 20.0 Microbiology Microbiology Results: Microbiology 02/17/22 14:04 Blood - Venous Blood Culture - Final No growth after 5 days. 02/17/22 13:05 Blood - Venous Blood Culture - Final No growth after 5 days. 02/17/22 15:33 Urine clean catch - Urine bowers top Urine Culture - Final Klebsiella pneumoniae Procedures Date of Service Date of Service: 04/08/22 Assessment & Plan Assessment and plan (1) Hyperkalemia: Status: Acute (2) Hyponatremia: Status: Acute (3) DAWIT (acute kidney injury): Status: Acute (4) High anion gap metabolic acidosis: Status: Acute (5) CKD (chronic kidney disease) stage 3, GFR 30-59 ml/min: Status: Acute Plan 1. DAWIT: most c/w renal hypoperfsuion based on labs thus far 2. HypoNa: c/w hypovol hypoNa; need to r/o hypothyroid 3. HyperK: resolved 4. AGMA/NAGMA: improved REC: check TSH, cont IVF and track UOP/renal func Time Spent With Patient Time: Total time managing care of this patient today ____ minutes. Progress Note: Quality Stroke Does the patient have a stroke diagnosis?: No
[2022-04-08 16:00] VITALS: BP 110/80; PULSE 91; RESP 18; TEMP 36.2; O2SAT 95
--- NOTE | 2022-04-08 16:12 | PC.NURSE ---
Patient drowsy, easy to arouse. VSS. Denies pain. Labs and meds discussed with Dr. Chand. Any sedating meds are placed on hold.
[2022-04-08] MEDS: Rivaroxaban 15 MG TABLET PO (17:01)
[2022-04-08 19:49] LABS: Anion Gap 15 (12-20); Blood Urea Nitrogen 35 mg/dL (9-16); Carbon Dioxide 21 mmol/L (22-29); Chloride 99 mmol/L (96-108); Creatinine Clr Calc Pharmacy 37.5; Estimated Glomerular Filt Rate 39; Glucose Random 138 mg/dL (60-115); Potassium 4.7 mmol/L (3.3-5.1); Sodium 130 mmol/L (135-145)
[2022-04-08 20:00] VITALS: BP 122/97; PULSE 97; RESP 18; TEMP 36.2; O2SAT 94
[2022-04-09 00:26] VITALS: BP 102/71; PULSE 103; RESP 14; TEMP 35.6; O2SAT 96
[2022-04-09] MEDS: Albumin Human 25 % 100 ML IV (03:33)
[2022-04-09 03:50] VITALS: BP 111/77; PULSE 93; RESP 16; TEMP 36; O2SAT 96
[2022-04-09] MEDS: Omeprazole 20 MG CAPSULE.DR PO (05:30)
[2022-04-09 06:48] LABS: Anion Gap 13 (12-20); Blood Urea Nitrogen 35 mg/dL (9-16); Carbon Dioxide 21 mmol/L (22-29); Chloride 100 mmol/L (96-108); Creatinine Clr Calc Pharmacy 38.4; Estimated Glomerular Filt Rate 40; Glucose Random 157 mg/dL (60-115); Potassium 4.2 mmol/L (3.3-5.1); Sodium 130 mmol/L (135-145)
[2022-04-09 07:09] LABS: TSH reflex Free T4 1.08 uIU/mL (0.32-4.0)
[2022-04-09 08:00] VITALS: BP 121/86; PULSE 90; RESP 20; TEMP 36.2; O2SAT 95
[2022-04-09] MEDS: Nystatin Powder 15 GM BOTTLE 1 APPL TOPICAL ×3 (09:37→21:04)
[2022-04-09] MEDS: 0.9 % Sodium Chloride Flush 3 ML SYRINGE IVFLUSH ×3 (09:37→20:59)
[2022-04-09] MEDS: Tamsulosin HCL 0.4 MG CAPSULE PO (09:37)
[2022-04-09] MEDS: carvediloL 6.25 MG TABLET PO ×2 (09:37→20:59)
[2022-04-09] MEDS: Folic Acid 1 MG TABLET PO (09:37)
--- NOTE | 2022-04-09 12:40 | P.PNIM_ITS ---
Subjective Subjective Date of Service: 04/09/22 Interval History: dawit Review of Systems po intake improvin encouraged for hydration Physical Exam Vital Signs: Vital Signs: Last Vital Signs Temp 97.1 F 04/09/22 08:00 Pulse 90 04/09/22 08:00 Resp 20 04/09/22 08:00 BP 121/86 04/09/22 08:00 Pulse Ox 95 04/09/22 08:00 O2 Del Method 04/09/22 08:00 O2 Flow Rate 2 04/07/22 03:58 BMI result Body Mass Index 26.4 Appearance: resting comfortably.? not in distress.? cvs: rrr, [id number] , no murmur res: clear to auscultation ,no rhonchii or wheezing abd: no rebound or guarding ,nt, bs present. ext pulses present , no cyanosis. Skin no rash neuro: nonfocal. ? Objective Data Active Medications Acetaminophen (Acetaminophen 325 Mg Tablet) 650 mg PO Q6H PRN PRN Reason: Pain, Mild (Pain Scale 1-3) Last Admin: 04/07/22 16:13 Dose: 650 mg Documented By: BETY Benzonatate (Benzonatate 100 Mg Capsule) 100 mg PO TID PRN PRN Reason: Cough Last Admin: 02/22/22 16:03 Dose: 100 mg Documented By: BOGDAN Carvedilol (Carvedilol 6.25 Mg Tablet) 6.25 mg PO BID [facility]; Protocol Last Admin: 04/09/22 09:37 Dose: 6.25 mg Documented By: MARNI Docusate Sodium (Docusate Sodium 100 Mg Capsule) 100 mg PO BEDTIME PRN PRN Reason: Constipation Duloxetine HCl (Duloxetine Hcl 30 Mg Capsule.Dr) 30 mg PO DAILY [facility] Last Admin: 04/08/22 10:57 Dose: 30 mg Documented By: MARNI Folic Acid (Folic Acid 1 Mg Tablet) 1 mg PO DAILY [facility] Last Admin: 04/09/22 09:37 Dose: 1 mg Documented By: MARNI Melatonin (Melatonin 3 Mg Tablet) 3 mg PO BEDTIME PRN PRN Reason: Insomnia Last Admin: 04/05/22 20:58 Dose: 3 mg Documented By: MITCHELL Nystatin (Nystatin Powder 15 Gm Bottle) 1 appl TOPICAL TID [facility]; Protocol Last Admin: 04/09/22 09:37 Dose: 1 appl Documented By: MARNI Omeprazole (Omeprazole 20 Mg Capsule.) 20 mg PO DAILY@0630 [facility] Last Admin: 04/09/22 05:30 Dose: 20 mg Documented By: ITZEL Ondansetron HCl (Ondansetron Hcl 4 Mg/2 Ml Vial) 4 mg IVPUSH Q8H PRN PRN Reason: Nausea and Vomiting Last Admin: 04/07/22 09:19 Dose: 4 mg Documented By: BETY Oxycodone HCl (Oxycodone Hcl Immed Release 5 Mg Tablet) 5 mg PO Q6H PRN PRN Reason: Pain, Mild (Pain Scale 1-3) Last Admin: 04/07/22 20:36 Dose: 5 mg Documented By: ITZEL Pharmacy Consult (Consult Rx Perform Med Rec) 1 each MISCELLANE ONCE PRN PRN Reason: Consult order Quetiapine Fumarate (Quetiapine Fumarate 25 Mg Tablet) 25 mg PO Q6H PRN PRN Reason: agitation, anxiety Rivaroxaban (Rivaroxaban 15 Mg Tablet) 15 mg PO DAILY@1700 [facility] Last Admin: 04/08/22 17:01 Dose: 15 mg Documented By: MEGAN Sodium Chloride (0.9 % Sodium Chloride Flush 3 Ml Syringe) 3 ml IVFLUSH QSHIFT [facility] Last Admin: 04/09/22 09:37 Dose: 3 ml Documented By: MARNI Spironolactone (Spironolactone 25 Mg Tablet) 12.5 mg PO DAILY [facility]; Protocol Last Admin: 04/06/22 09:54 Dose: Not Given Documented By: ERIKA Non-Admin Reason: Patient Refused Tamsulosin HCl (Tamsulosin Hcl 0.4 Mg Capsule) 0.4 mg PO DAILY [facility] Last Admin: 04/09/22 09:37 Dose: 0.4 mg Documented By: MARNI Trazodone HCl (Trazodone Hcl 25 Mg Halftab) 25 mg PO BEDTIME PRN PRN Reason: pain/sleep Labs CBC & Chem 7: 03/29/22 14:55 04/09/22 05:53 Labs: Laboratory Results - last 24 hr 04/08/22 04/09/2222 19:13 05:53 05:53 Anion Gap 15 13 Estim Creat Clear Calc 37.5 38.4 Estimated GFR 39 40 Random Glucose 138 H 157 H Calcium 9.0 9.0 TSH 1.08 Microbiology Microbiology Results: Microbiology 04/08/22 17:15 Urine Culture - Preliminary Urine Catheterized - Garcia Catheter Gram negative mendoza Assessment and Plan (1) DAWIT (acute kidney injury): Status: Acute (2) Hyponatremia: Status: Acute (3) Hyperkalemia: Status: Acute (4) High anion gap metabolic acidosis: Status: Acute (5) CKD (chronic kidney disease) stage 3, GFR 30-59 ml/min: Status: Acute Plan 77yo M with hx chronic HFrEF, AF s/p PPM 2019 AC on rivaroxaban, CKD3, unspecified dementia, brought in after falling in the [place] while intoxicated and developing an open anal wound with fecal drainage admitted for perirectal perforation/cellulitis essentially no new issues 1.Perirectal perforation/cellulitis -? fecal drainage through open perianal wound Persists ? cellulitis resolved. ? no acute issues r/t perforation 2.Urinary retention - prn bladder scan, straight cath PRN bladder scan seems fine 3.Chronic HFpEF/CHronic AF - well compensated at this time - Echo showed EF of 15-20%? , significant dilatation of ascending aortic size at 5 cm.? continue carvedilol/ rivaroxaban/spironolactone 4.dawit on CKD3,hyponatremia hyperkalemia ,AGMA,low bicarb-resolved with bicarb drip. has some diarrhae -at baseline -follow renals/divalents hyponatremia resolved dawit improvin continue to moniter 5. generalized pain continue Tylenol and prn oxycodone recommend out of bed to chair 6. Permanent AFIB--tachycardia, today, continue Coreg and Xarelto. 7. N/V abd discomfort 03/29, resolved, CT no acute finding routine labs CBC, chem unremarkable' 8. Agitation, hallucinations at time, consider zyprexa or seroquel has agitation last night ,also ?generalised pain unlcear added oxycodone ,tylenol ,trazodone for sleep psych eval noted. ?DVT prophylaxis Rivaroxaban DNR/DNI Patient requires ongoing hospitalization : hyponatremia /dawit -need ivf ns ,electrolytic abnormalities moniterin. Time Spent With Patient Time: Total time managing care of this patient today ____ minutes. Quality Stroke Does the patient have a stroke diagnosis?: No VTE Prior VTE?: No VTE Risk Level:: Medical - moderate - high VTE Device Contraindication: N/A - Device Ordered VTE Drug Contraindication: Treatment Not Indicated
[2022-04-09] MEDS: Acetaminophen 325 MG TABLET 650 MG PO (13:52)
--- NOTE | 2022-04-09 14:56 | CONS_ITS ---
DATE OF SERVICE: 04/07/2022 REASON FOR CONSULTATION: I was asked to see patient to assist in evaluation and management of patient's hyponatremia with serum sodium 128, hyperkalemia with potassium 6.1, as well as acute kidney injury as reflected by creatinine 1.84. His baseline creatinine appears to be in the 1.2 to 1.3 range. HISTORY OF PRESENT ILLNESS: In summary, the patient is a 77-year-old with a history of heart failure with reduced ejection fraction with an echo showing EF of 10% to 15%, diastolic dysfunction, permanent pacemaker, atrial fibrillation maintained on anticoagulation, stage 3 chronic kidney disease. This creatinine ranging in the 1.2 to 1.4 range. Mention made of heavy alcohol use, who was admitted to the hospital with an anal wound with fecal drainage and perirectal perforation, cellulitis. The patient is a poor historian. Information obtained from electronic medical record. There is mention made that he was in the [place], where he was intoxicated and developed an open wound. PAST MEDICAL HISTORY: As mentioned above. MEDICATIONS ON ADMISSION: Noted in the admitting notes. CURRENT MEDICATIONS: Noted in the MAR. FAMILY HISTORY: Unable to obtain family history. REVIEW OF SYSTEMS: Somewhat limited. There is a questionable history of heavy alcohol use. ALLERGIES: HE HAS NO KNOWN DRUG ALLERGIES. PHYSICAL EXAMINATION: VITAL SIGNS: Blood pressure of 126/84 with a heart rate in the 90s. HEAD: Atraumatic and normocephalic. NECK: Supple. Mucous membranes moist. LUNGS: Breath sounds bilaterally. CARDIAC: Regular rate and rhythm. ABDOMEN: Soft. EXTREMITIES: Shows no edema. LABORATORY DATA: Sodium 128, potassium 6.1, chloride 100, bicarb 13, anion gap 21, BUN 36, creatinine 1.84, calcium 9.2, albumin 2.8. His random cortisol level 26. Hemoglobin of 10.5, hematocrit 33.2, white count 6.2. Urine studies showed urine sodium less than 20, trace protein by dipstick. CAT scan done on March 29 showed small bilateral pleural effusions, cardiomegaly and anasarca and mention made of the abscess in the lateral rectum area. IMPRESSION: 77-year-old with acute kidney injury on chronic kidney disease, hyponatremia and hyperkalemia along with a combined anion gap and non-anion gap metabolic acidosis. 1. Acute kidney injury. I suspect this is due to renal hypoperfusion and decreased intravascular volume. He is currently getting IV albumin and some IV crystalloid to expand his intravascular volume and hopefully improve his renal perfusion. His urine sodium being so low, is consistent with renal hypoperfusion. 2. There is no evidence of obstruction on imaging studies in the past. He has a Garcia catheter in place. He had obstruction unlikely. 3. Hyponatremia. Most likely multifactorial including poor p.o. intake along with nonosmotic increase in ADH. 4. He may have a component of hypovolemic hyponatremia as well. 5. Hyperkalemia. Need to rule out adrenal insufficiency, which already done. Again, acute kidney injury and inability to excrete potassium. His low urine sodium may limit ability to excrete potassium due to decreased distal delivery of sodium. RECOMMENDATIONS: 1. Obtain a repeat urine studies to measure both urine sodium and urine creatinine to calculate fractional excretion of sodium. 2. Placed him on IV sodium bicarb, which will volume expand him and also replace his bicarb and help move potassium into the cells. 3. Check a TSH level. 4. Monitor renal function and urine output closely. 5. May need placement of p.o. fluid restriction. 6. We will follow the patient closely with the team as we sort these issues out. MD PAULA Garcia/NAZIA / [id number]
[2022-04-09 15:34] VITALS: BP 118/82; PULSE 89; RESP 18; TEMP 37.1; O2SAT 97
[2022-04-09 16:30] VITALS: BP 104/85; PULSE 103; RESP 20; O2SAT 94
--- NOTE | 2022-04-09 16:37 | PC.NURSE ---
Addendum entered by Elaine Rod RN 04/09/22 16:44: Dr. Black covering for Dr. Chand made aware of pt complaints,awaiting order for pain med,no need for EKG per Dr. Black Original Note: Pt co chest pain #9 ,also c/o generalized pain,BP 104/85,pulse 103,sat 94% on RA,Dr. Chand notified via [employer] connect
[2022-04-09] MEDS: oxyCODONE HCl Immed Release 5 MG TABLET PO (17:04)
[2022-04-09] MEDS: Rivaroxaban 15 MG TABLET PO (17:04)
--- NOTE | 2022-04-09 17:13 | PM.PNNEP ---
Subjective Subjective Date of Service: 04/09/22 Interval history: seen and examined, events noted Physical Exam Vital Signs: Vital Signs: Last Vital Signs Temp 98.7 F 04/09/22 15:34 Pulse 89 04/09/22 15:34 Resp 18 04/09/22 15:34 BP 118/82 04/09/22 15:34 Pulse Ox 97 04/09/22 15:34 O2 Del Method 04/09/22 15:34 O2 Flow Rate 2 04/07/22 03:58 BMI result Body Mass Index 26.4 Const: Other: General? resting comfortably in no acute distress.? Neck supple no JVD. CVS? regular rate rhythm, Respiratory lungs clear to auscultation, no respiratory distress, no wheeze, no rhonchi. Gastrointestinal abdomen soft, nontender, bowel sounds audible, no guarding , no rigidity. Extremities no? edema. Rectal examination open wound perianal area with drainage of soft stool, mild surrounding? erythema Neuro nonfocal, moving all 4 extremity, speech clear. Skin no rash Psych appropriate affect General: cooperative, comfortable, no acute distress, well developed and lethargic Nutritional Appearance: well nourished Orientation/consciousness: patient oriented x3 and lethargic Limitations: no limitations and altered mental status HEENT: Other: Unremarkable Head: Yes normal to inspection, Yes normocephalic and Yes atraumatic Face and sinus: Yes normal facial exam Mouth: Normal oral and palatal mucosa present Teeth and gingiva: dentition normal Eyes: General: appearance normal, both eyes and all related structures Pupils: Equal, round and reactive pupils present Neck: Neck: Yes normal visual inspection Chest: Chest palpation & inspection: normal inspection of the chest Resp: Other: Clear to auscultation bilaterally no rales rhonchi or wheezes Effort & Inspection: normal respiratory effort Auscultation: clear to auscultation bilaterally and crackles Cardio: Other: No S4; positive S1-S2; no S3 murmurs rubs or gallops Palpation: normal PMI Rate: regular rate Rhythm: regular rhythm and abnormal rhythm Heart sounds: S1 normal heart sound present, S2 normal heart sound present, no gallops, Murmur heart sound present systolic II/ and no rubs GI: Other: rectal wound with stool c/w fistulous connection, traumatic Inspection: Yes normal to inspection Palpation (GI): Soft to palpation, not firm, nontender, no guarding, not rigid and Pulsatile mass present Percussion: Yes normal to percussion Auscultation: normal bowel sounds : Other: open wound perianal area with drainage of soft stool, mild surrounding redness General: Yes no CVA tenderness Back/Spine/Pelvis: Other: Granulating wound with fecalent discharge Back: no CVA tenderness Skin: Other: Warm, dry, no rash, normal color General skin exam: no rashes or lesions noted Neuro: Other: patient somnolent but arousable, unable to assess neuro exam General: patient oriented x3 and moves all extremities Cranial nerves: Yes Equal, round and reactive pupils present Extrem: Other: No edema bilaterally General: Yes normal to inspection, Yes no clubbing, cyanosis or edema and Yes no pedal edema Psych: Appearance: grossly normal Mental Status: mental status grossly abnormal Objective Data Labs CBC & Chem 7: 03/29/22 14:55 04/09/22 05:53 Labs: Laboratory Results - last 24 hr 04/08/22 04/09/22 04/09/22 19:13 05:53 05:53 Sodium 130 L 130 L Potassium 4.7 4.2 Chloride 99 100 Carbon Dioxide 21 L 21 L Anion Gap 15 13 BUN 35 H 35 H Creatinine 1.70 H 1.66 H Estim Creat Clear Calc 37.5 38.4 Estimated GFR 39 40 Random Glucose 138 H 157 H Calcium 9.0 9.0 TSH 1.08 Microbiology Microbiology Results: Microbiology 04/08/22 17:15 Urine Catheterized - Garcia Catheter Urine Culture - Preliminary Gram negative mendoza 02/17/22 14:04 Blood - Venous Blood Culture - Final No growth after 5 days. 02/17/22 13:05 Blood - Venous Blood Culture - Final No growth after 5 days. 02/17/22 15:33 Urine clean catch - Urine bowers top Urine Culture - Final Klebsiella pneumoniae Procedures Date of Service Date of Service: 04/09/22 Assessment & Plan Assessment and plan (1) Hyperkalemia: Status: Acute (2) Hyponatremia: Status: Acute (3) DAWIT (acute kidney injury): Status: Acute (4) High anion gap metabolic acidosis: Status: Acute (5) CKD (chronic kidney disease) stage 3, GFR 30-59 ml/min: Status: Acute Plan 1. DAWIT: most c/w renal hypoperfsuion based on labs thus far 2. mild HypoNa: c/w hypovol hypoNa 3. HyperK: resolved 4. AGMA/NAGMA: improved REC: cont to track UOP/renal func and SNa level; avoid excess PO fluid intake Time Spent With Patient Time: Total time managing care of this patient today ____ minutes. Progress Note: Quality Stroke Does the patient have a stroke diagnosis?: No
[2022-04-09 19:31] VITALS: BP 116/82; PULSE 100; RESP 18; TEMP 37.1; O2SAT 95
[2022-04-10] VITALS (22 sets, daily range): BP systolic 110–128; BP diastolic 81–97; PULSE 86–119; RESP 12–22; TEMP -17.7–37.4; O2SAT 92–100; BMI 26.4
--- NOTE | 2022-04-10 | ECG_ITS ---
Test Reason : CHEST PAIN Blood Pressure : / mmHG Vent. Rate : 123 BPM Atrial Rate : 000 BPM P-R Int : 000 ms QRS Dur : 144 ms QT Int : 312 ms P-R-T Axes : 000 -69 107 degrees QTc Int : 446 ms Atrial fibrillation with rapid ventricular response Left bundle branch block Abnormal ECG When compared with ECG of 03-APR-2022 11:17, No significant change was found Referred By: Tomasa Chand Electronically Signed By:Favio Curtis
[2022-04-10] MEDS: Acetaminophen 325 MG TABLET 650 MG PO ×2 (00:35→14:37)
[2022-04-10] MEDS: Melatonin 3 MG TABLET PO (00:36)
--- NOTE | 2022-04-10 03:40 | PC.NURSE ---
pt's 4 extremies cold and head has sweaty and pt complained about SOB I can't breath provide O2 2L via NC. O2 sat. 93%, 63 HR. repositioned to right provide warm blanket, notified to doctor Arjun.
[2022-04-10] MEDS: Furosemide 100 MG/10 ML VIAL 60 MG IVPUSH (04:05)
[2022-04-10 04:23] LABS: MANUAL DIFF FLAG NO
[2022-04-10 04:25] LABS: Basophils Percent Auto 0.3 % (0-2); Eosinophils Absolute Auto 0.1 X10*3/uL (0.0-0.4); Eosinophils Percent Auto 1.1 % (0-4); Hematocrit 35.7 % (42.0-52.0); Hemoglobin 11.4 g/dl (14.0-18.0); Imm Gran Abs Auto 0.03 X10*3/uL (0.00-0.03); Imm Gran Pct Auto 0.5 % (0.0-0.4); Lymphocytes Absolute Auto 2.5 X10*3/uL (1.2-4.9); Lymphocytes Percent Auto 39.4 % (20-40); Mean Corpuscular HGB Conc 31.9 g/dl (31.0-36.0); Mean Corpuscular Hemoglobin 29.5 pg (27.0-33.0); Mean Corpuscular Volume 92.5 fL (80.0-98.0); Mean Platelet Volume 9.7 fL (9.4-12.4); Monocytes Absolute Auto 0.8 X10*3/uL (0.1-1.2); Monocytes Percent Auto 12.1 % (2-11); Neutrophils Absolute Auto 2.9 x10*3/uL (2.0-8.3); Neutrophils Percent Auto 46.6 % (45-73); Platelet Count 227 X10*3/uL (160-400); Red Blood Count 3.86 X10*6/uL (4.60-5.80); Red Cell Distribution Width 18.6 % (11.0-16.0); White Blood Count 6.3 X10*3/uL (4.8-10.8)
[2022-04-10 04:33] LABS: Lactic Acid 1.7 mmol/L (0.5-2.0)
[2022-04-10 04:38] LABS: Alanine Aminotransferase 23 U/L (0-40); Albumin Level 3.7 g/dL (3.5-5.0); Alkaline Phosphatase 133 U/L (39-117); Anion Gap 15 (12-20); Aspartate Amino Transferase 22 U/L (5-37); Bilirubin Total 2.4 mg/dL (0.0-1.0); Blood Urea Nitrogen 36 mg/dL (9-16); Calcium 9.5 mg/dL (8.4-10.2); Carbon Dioxide 23 mmol/L (22-29); Chloride 98 mmol/L (96-108); Creatinine Clr Calc Pharmacy 37.3; Estimated Glomerular Filt Rate 39; Glucose Random 123 mg/dL (60-115); Sodium 131 mmol/L (135-145); Total Protein 6.6 g/dL (6.5-8.0)
[2022-04-10 04:45] LABS: Troponin-I High Sensitivity 18.7 ng/L (<3.5-35.0)
--- NOTE | 2022-04-10 04:45 | P.EN_ITS ---
Event Note Date of Service: 04/10/22 Event Note: a rapid response was called on the pt for hypoxia. Pt somnolent but arousable. On my arrival found him to be sating 80% on NC of 3 L. RT placed pt on non- rebreather with improvement of O2 to mid 90%. pt hypotensive w BP 80s/40s. CXR labs obtained. CXR reviewd by me shows likely pulmonary edema. gave 60 of lasix.ICU accounts administrator informed. pt placed on BIPAP per accounts administrator and will be transferred to ICU Time Spent With Patient Time: Total time managing care of this patient today ____ minutes.
[2022-04-10 05:02] LABS: B Type Natriuretic Peptide 7362 pg/mL (<100)
--- NOTE | 2022-04-10 05:24 | PC.NURSE ---
pt has been repositioned q2. at 03:40 rechecked pt complained SOB. pt 4 extremities are cold and sat was 90%, given O2 2L via NC. 93%. dr. Díaz notified. ordered for lab and chest x-ray and asking for the full vitals. so tried to rechecked whole vitals. couldn't read bp via automated. so checked by manual 82/58, O2 sat start with 97% but in 5 min. crushed to 66% called Rapid Respond at 04:00. checked again bp 82 systolic. difficult to read diastolic. x-ray team came up. orderd furosemide 60mg IV push. given by segmental paving supervisor Melissa. order bi-pap, pt sent to ICU. I went down with pt. gave the report to [employer]DRA Garner.
--- NOTE | 2022-04-10 05:28 | W.PM.CCCN ---
History of Present Illness Data of Consult Service Date: 04/10/22 Requesting physician: Rodríguez Díaz Primary Care Provider: None Physician HPI Reason for consult: Acute hypoxemic respiratory failure And 77-year-old demented individual who is a DNR/DNI and in the hospital now awaiting placement has underlying type 2 diabetes mellitus and has chronic stage III renal failure with a persistent non-anion gap metabolic acidosis also has chronic pressure sore overlying the buttocks and perirectal area and has a ESBL Klebsiella urinary tract infection and a longstanding history of heart failure with a reduced ejection fraction which is at best about 15% with chronic atrial fibrillation controlled on Coreg and a chronic left bundle branch block and who had a rapid response for what appears to be acute pulmonary edema and then impalpable blood pressure and felt that the the best thing to do would be simply to start him on BiPAP the positive-pressure until a be the best way to restore stroke volume and therefore systolic pressure as well as as reduce venous return and help to improve his pulmonary edema quicker and that seem to over worked in in of itself and the chest x-ray did show that he is fluid overloaded he definitely has bilateral right greater than left pleural effusions with evidence of pulmonary edema and and marked cardiomegaly and my bedside echo demonstrates a significantly dilated and severely diffusely hypokinetic left ventricle with with about a 10-15% ejection fraction moderate mitral regurgitation moderately severe tricuspid insufficiency with PA systolic pressure of at least 45 and a markedly dilated inferior vena cava without inspiratory collapse so we clearly have elevated right heart filling pressures so it is a cardiomyopathy which is congestive with biventricular failure predominant left heart failure and he is much better now reason AFib with a heart rate between 110 and 115 he is now awake respiratory effort is markedly improved no accessory muscle or diaphragmatic effort Review of Systems Review of Systems: Yes Unobtainable due to mental status PMFSH Past Medical History Medical History Afib Alcohol abuse Anticoagulant long-term use BPH (benign prostatic hyperplasia) Cardiomyopathy CKD (chronic kidney disease) ESBL (extended spectrum beta-lactamase) producing bacteria infection HTN (hypertension) Pacemaker Family History Family History Mother Lung abnormality Family history: reviewed and not pertinent Social History Social History Household Members: Unknown / Unable to assess Housing: Unknown / Unable to assess Unable to assess alcohol history related to: Refusing to respond Alcohol intake: former Patient Tobacco Use Status: Former Tobacco user service: No Meds Allergies Allergy/AdvReac Type Severity Reaction Status Date / Time No Known Allergies Allergy Verified 02/17/22 12:33 Active Medications: Current Medications Acetaminophen (Acetaminophen 325 Mg Tablet) 650 mg PO Q6H PRN PRN Reason: Pain, Mild (Pain Scale 1-3) Last Admin: 04/10/22 00:35 Dose: 650 mg Benzonatate (Benzonatate 100 Mg Capsule) 100 mg PO TID PRN PRN Reason: Cough Last Admin: 02/22/22 16:03 Dose: 100 mg Carvedilol (Carvedilol 6.25 Mg Tablet) 6.25 mg PO BID [facility]; Protocol Last Admin: 04/09/22 20:59 Dose: 6.25 mg Digoxin (Digoxin 0.25 Mg Tablet) 0.5 mg PO ONCE ONE Stop: 04/10/22 05:26 Digoxin (Digoxin 0.125 Mg Tablet) 0.125 mg PO DAILY [facility] Docusate Sodium (Docusate Sodium 100 Mg Capsule) 100 mg PO BEDTIME PRN PRN Reason: Constipation Duloxetine HCl (Duloxetine Hcl 30 Mg Capsule.) 30 mg PO DAILY [facility] Last Admin: 04/08/22 10:57 Dose: 30 mg Folic Acid (Folic Acid 1 Mg Tablet) 1 mg PO DAILY [facility] Last Admin: 04/09/22 09:37 Dose: 1 mg Melatonin (Melatonin 3 Mg Tablet) 3 mg PO BEDTIME PRN PRN Reason: Insomnia Last Admin: 04/10/22 00:36 Dose: 3 mg Nystatin (Nystatin Powder 15 Gm Bottle) 1 appl TOPICAL TID [facility]; Protocol Last Admin: 04/09/22 21:04 Dose: 1 appl Omeprazole (Omeprazole 20 Mg Capsule.) 20 mg PO DAILY@0630 [facility] Last Admin: 04/10/22 05:06 Dose: Not Given Ondansetron HCl (Ondansetron Hcl 4 Mg/2 Ml Vial) 4 mg IVPUSH Q8H PRN PRN Reason: Nausea and Vomiting Last Admin: 04/07/22 09:19 Dose: 4 mg Oxycodone HCl (Oxycodone Hcl Immed Release 5 Mg Tablet) 5 mg PO Q6H PRN PRN Reason: Pain, Mild (Pain Scale 1-3) Last Admin: 04/07/22 20:36 Dose: 5 mg Pharmacy Consult (Consult Rx Perform Med Rec) 1 each MISCELLANE ONCE PRN PRN Reason: Consult order Quetiapine Fumarate (Quetiapine Fumarate 25 Mg Tablet) 25 mg PO Q6H PRN PRN Reason: agitation, anxiety Rivaroxaban (Rivaroxaban 15 Mg Tablet) 15 mg PO DAILY@1700 [facility] Last Admin: 04/09/22 17:04 Dose: 15 mg Sodium Chloride (0.9 % Sodium Chloride Flush 3 Ml Syringe) 3 ml IVFLUSH QSHIFT [facility] Last Admin: 04/09/22 20:59 Dose: 3 ml Spironolactone (Spironolactone 25 Mg Tablet) 12.5 mg PO DAILY [facility]; Protocol Last Admin: 04/06/22 09:54 Dose: Not Given Tamsulosin HCl (Tamsulosin Hcl 0.4 Mg Capsule) 0.4 mg PO DAILY [facility] Last Admin: 04/09/22 09:37 Dose: 0.4 mg Trazodone HCl (Trazodone Hcl 25 Mg Halftab) 25 mg PO BEDTIME PRN PRN Reason: pain/sleep Home Medications Medication Instructions Recorded Confirmed Last Taken Type acetaminophen 325 mg tablet 650 mg PO Q6H PRN Pain 02/17/22 02/17/22 Unknown History carvedilol 6.25 mg tablet 1 tab PO BID 02/17/22 02/17/22 02/17/22 History enalapril maleate 2.5 mg tablet 1 tab PO BID 02/17/22 02/17/22 02/17/22 History folic acid 1 mg tablet 1 tab PO DAILY 02/17/22 02/17/22 02/17/22 History furosemide 80 mg tablet 1 tab PO BID 02/17/22 02/17/22 02/17/22 History omeprazole 20 mg capsule,delayed 20 mg PO DAILY@0630 02/17/22 02/17/22 Unknown History release rivaroxaban 15 mg tablet (Xarelto) 15 mg PO DAILY@1700 02/17/22 02/17/22 Unknown History spironolactone 25 mg tablet 1 tab PO DAILY 02/17/22 02/17/22 02/17/22 History tamsulosin 0.4 mg capsule 1 cap PO DAILY 02/17/22 02/17/22 02/17/22 History Physical Exam Vital Signs: Vital Signs: Last Vital Signs Temp 98.2 F 04/10/22 05:05 Pulse 105 H 04/10/22 05:05 Resp 16 04/10/22 05:05 BP 115/83 04/10/22 05:05 Pulse Ox 100 04/10/22 05:05 O2 Del Method 04/10/22 05:05 O2 Flow Rate 2 04/07/22 03:58 FiO2 40 04/10/22 05:05 Oxygen Flow Rate 30 04/10/22 05:25 BMI result Body Mass Index 26.4 He is now awake trying to talk but not very intelligible but it is partly with the BiPAP mask on His periphery is cold but no distinct pattern of acrocyanosis or livedo Cardiac exam of course by echo as described above severe congestive cardiomyopathy EKG unchanged it is a complete left bundle branch block with atrial fibrillation Abdomen is benign is soft with no organomegaly Chest with scattered bilateral wheezes but no peripheral edema Results Labs CBC & Chem 7: 04/10/22 04:18 04/10/22 04:18 Labs: Short CBC 04/10/22 Range/Units 04:18 WBC 6.3 (4.8-10.8) X10*3/uL Hgb 11.4 L (14.0-18.0) g/dl Hct 35.7 L (42.0-52.0) % Plt Count 227 (160-400) X10*3/uL BMP 04/09/22 04/10/22 05:53 04:18 Sodium 130 L 131 L Potassium 4.2 5.0 Chloride 100 98 Carbon Dioxide 21 L 23 BUN 35 H 36 H Creatinine 1.66 H 1.71 H Calcium 9.0 9.5 Liver Function 04/10/22 Range/Units 04:18 Total Bilirubin 2.4 H (0.0-1.0) mg/dL AST 22 (5-37) U/L ALT 23 (0-40) U/L Alkaline Phosphatase 133 H (39-117) U/L Albumin 3.7 (3.5-5.0) g/dL Microbiology Microbiology Results: Microbiology 04/08/22 17:15 Urine Catheterized - Garcia Catheter Urine Culture - Preliminary Gram negative mendoza 02/17/22 14:04 Blood - Venous Blood Culture - Final No growth after 5 days. 02/17/22 13:05 Blood - Venous Blood Culture - Final No growth after 5 days. 02/17/22 15:33 Urine clean catch - Urine bowers top Urine Culture - Final Klebsiella pneumoniae Assessment and Plan (1) CKD (chronic kidney disease) stage 3, GFR 30-59 ml/min: Status: Acute (2) MDD (major depressive disorder), recurrent episode, moderate: Status: Acute (3) Dementia with behavioral disturbance: Status: Acute (4) Hyperkalemia: Status: Acute (5) Hyponatremia: Status: Acute (6) DAWIT (acute kidney injury): Status: Acute (7) Chronic a-fib: Status: Acute (8) (HFpEF) heart failure with preserved ejection fraction: Status: Acute (9) Urinary tract infection due to ESBL Klebsiella: Status: Acute (10) Perirectal cellulitis: Status: Acute (11) Cardiomyopathy: Status: Acute (12) Cellulitis of buttock: Status: Acute (13) Traumatic perforation of rectum: Status: Acute (14) Open wnd of buttock: Qualifiers: Encounter type: initial encounter Laterality: left Qualified Code(s): S31.829A - Unspecified open wound of left buttock, initial encounter Status: Acute Plan So at this point fluid overload appears to be the issue I doubt superimposed ischemia and given his persistent hyperkalemia were limited and probably will not be able to use an BISMARK-inhibitor or an ARB drug in any combination but he probably should be on a maintenance diuretic to take in conjunction with 12.5 mg of spironolactone and without hurting his hemodynamics and going to give him just 0.5 mg of digoxin as a brief loading dose and then begin his maintenance dose today of 0.125 mg daily this is in the face of a 30 cc GFR but keep him on the BiPAP as long as I can I think that would help to promote diuresis and help us achieve euvolemia Time Spent With Patient Time: Total time managing care of this patient today ____ minutes.
[2022-04-10] MEDS: Digoxin 0.25 MG TABLET 0.5 MG PO (05:46)
--- NOTE | 2022-04-10 06:29 | PC.NURSE ---
Pt transferred to ICU from at approx 0400 after rapid response. Upon initial assessment- pt A&Ox2, SWAN. Afib on tele with LBBB, HR 100-120s. SBP > 100, MAP > 60. Bedside echo one by . Placed on BiPAP 12//30%, tolerating well, LS clear/dim. Incontinent of urine, external cath applied. Stage 2 to coccyx. Pt educated on plan of care. Bed locked in lowest position, alarm on.
[2022-04-10] MEDS: 0.9 % Sodium Chloride Flush 3 ML SYRINGE IVFLUSH ×3 (09:12→21:23)
[2022-04-10] MEDS: Folic Acid 1 MG TABLET PO (09:13)
[2022-04-10] MEDS: Bumetanide 1 MG/4 ML VIAL IVPUSH (09:13)
[2022-04-10] MEDS: carvediloL 6.25 MG TABLET PO ×2 (09:13→21:20)
[2022-04-10] MEDS: Tamsulosin HCL 0.4 MG CAPSULE PO (09:13)
[2022-04-10] MEDS: Digoxin 0.125 MG TABLET PO (09:13)
--- NOTE | 2022-04-10 09:20 | P.PNNP_ITS ---
Subjective Subjective Date of Service: 04/10/22 Interval history: seen and examined, events noted Physical Exam Vital Signs: Vital Signs: Last Vital Signs Temp 97.8 F 04/10/22 07:00 Pulse 111 H 04/10/22 08:00 Resp 15 04/10/22 08:00 BP 110/86 04/10/22 08:00 Pulse Ox 96 04/10/22 08:00 O2 Del Method 04/10/22 08:00 O2 Flow Rate 2 04/07/22 03:58 FiO2 30 04/10/22 07:00 Oxygen Flow Rate 30 04/10/22 05:25 BMI result Body Mass Index 26.4 Const: Other: General? resting comfortably in no acute distress.? Neck supple no JVD. CVS? regular rate rhythm, Respiratory lungs clear to auscultation, no respiratory distress, no wheeze, no rhonchi. Gastrointestinal abdomen soft, nontender, bowel sounds audible, no guarding , no rigidity. Extremities no? edema. Rectal examination open wound perianal area with drainage of soft stool, mild surrounding? erythema Neuro nonfocal, moving all 4 extremity, speech clear. Skin no rash Psych appropriate affect General: cooperative, comfortable, no acute distress, well developed and lethargic Nutritional Appearance: well nourished Orientation/consciousness: patient oriented x3 and lethargic Limitations: no limitations and altered mental status HEENT: Other: Unremarkable Head: Yes normal to inspection, Yes normocephalic and Yes atraumatic Face and sinus: Yes normal facial exam Mouth: Normal oral and palatal mucosa present Teeth and gingiva: dentition normal Eyes: General: appearance normal, both eyes and all related structures Pupils: Equal, round and reactive pupils present Neck: Neck: Yes normal visual inspection Chest: Chest palpation & inspection: normal inspection of the chest Resp: Other: Clear to auscultation bilaterally no rales rhonchi or wheezes Effort & Inspection: normal respiratory effort Auscultation: clear to auscultation bilaterally and crackles Cardio: Other: No S4; positive S1-S2; no S3 murmurs rubs or gallops Palpation: normal PMI Rate: regular rate Rhythm: regular rhythm and abnormal rhythm Heart sounds: S1 normal heart sound present, S2 normal heart sound present, no gallops, Murmur heart sound present systolic II/ and no rubs GI: Other: rectal wound with stool c/w fistulous connection, traumatic Inspection: Yes normal to inspection Palpation (GI): Soft to palpation, not firm, nontender, no guarding, not rigid and Pulsatile mass present P ercussion: Yes normal to percussion Auscultation: normal bowel sounds : Other: open wound perianal area with drainage of soft stool, mild surrounding redness General: Yes no CVA tenderness Back/Spine/Pelvis: Other: Granulating wound with fecalent discharge Back: no CVA tenderness Skin: Other: Warm, dry, no rash, normal color General skin exam: no rashes or lesions noted Neuro: Other: patient somnolent but arousable, unable to assess neuro exam General: patient oriented x3 and moves all extremities Cranial nerves: Yes Equal, round and reactive pupils present Extrem: Other: No edema bilaterally General: Yes normal to inspection, Yes no clubbing, cyanosis or edema and Yes no pedal edema Psych: Appearance: grossly normal Mental Status: mental status grossly abnormal Objective Data Labs CBC & Chem 7: 04/10/22 04:18 04/10/22 04:18 Labs: Laboratory Results - last 24 hr 04/10/22 04/10/22 04/10/22 04:17 04:18 04:18 WBC RBC Hgb Hct MCV MCH MCHC RDW Plt Count MPV Immature Gran % (Auto) Neut % (Auto) Lymph % (Auto) [place] % (Auto) Eos % (Auto) Baso % (Auto) Lymph # (Auto) [place] # (Auto) Eos # (Auto) Baso # (Auto) Abs Immat Gran (auto) Absolute Neuts (auto) Absolute Nucleated RBC Nucleated RBC % (auto) Sodium Potassium Chloride Carbon Dioxide Anion Gap BUN Creatinine Estim Creat Clear Calc Estimated GFR Random Glucose Lactic Acid 1.7 Calcium Total Bilirubin AST ALT Alkaline Phosphatase Troponin I High Sens 18.7 B-Natriuretic Peptide 7362 H Total Protein Albumin 04/10/22 04/10/22 04:18 04:18 WBC 6.3 RBC 3.86 L Hgb 11.4 L Hct 35.7 L MCV 92.5 MCH 29.5 MCHC 31.9 RDW 18.6 H Plt Count 227 MPV 9.7 Immature Gran % (Auto) 0.5 H Neut % (Auto) 46.6 Lymph % (Auto) 39.4 [place] % (Auto) 12.1 H Eos % (Auto) 1.1 Baso % (Auto) 0.3 Lymph # (Auto) 2.5 [place] # (Auto) 0.8 Eos # (Auto) 0.1 Baso # (Auto) 0.0 Abs Immat Gran (auto) 0.03 Absolute Neuts (auto) 2.9 Absolute Nucleated RBC 0.000 Nucleated RBC % (auto) 0.0 Sodium 131 L Potassium 5.0 Chloride 98 Carbon Dioxide 23 Anion Gap 15 BUN 36 H Creatinine 1.71 H Estim Creat Clear Calc 37.3 Estimated GFR 39 Random Glucose 123 H Lactic Acid Calcium 9.5 Total Bilirubin 2.4 H AST 22 ALT 23 Alkaline Phosphatase 133 H Troponin I High Sens B-Natriuretic Peptide Total Protein 6.6 Albumin 3.7 Microbiology Microbiology Results: Microbiology 04/08/22 17:15 Urine Catheterized - Garcia Catheter Urine Culture - Preliminary Escherichia coli 02/17/22 14:04 Blood - Venous Blood Culture - Final No growth after 5 days. 02/17/22 13:05 Blood - Venous Blood Culture - Final No growth after 5 days. 02/17/22 15:33 Urine clean catch - Urine bowers top Urine Culture - Final Klebsiella pneumoniae Procedures Date of Service Date of Service: 04/10/22 Assessment & Plan Assessment and plan (1) CKD (chronic kidney disease) stage 3, GFR 30-59 ml/min: Status: Acute Assessment and Plan: Stable CKD tolerating diuretics but not great UO can try lasix drip with metolozone (2) MDD (major depressive disorder), recurrent episode, moderate: Status: Acute (3) Dementia with behavioral disturbance: Status: Acute (4) Hyperkalemia: Status: Acute (5) Hyponatremia: Status: Acute (6) DAWIT (acute kidney injury): Status: Acute (7) Chronic a-fib: Status: Acute (8) (HFpEF) heart failure with preserved ejection fraction: Status: Acute (9) Urinary tract infection due to ESBL Klebsiella: Status: Acute (10) Perirectal cellulitis: Status: Acute (11) Cardiomyopathy: Status: Acute (12) Cellulitis of buttock: Status: Acute (13) Traumatic perforation of rectum: Status: Acute (14) Open wnd of buttock: Status: Acute Plan So at this point fluid overload appears to be the issue I doubt superimposed ischemia and given his persistent hyperkalemia were limited and probably will not be able to use an BISMARK-inhibitor or an ARB drug in any combination but he probably should be on a maintenance diuretic to take in conjunction with 12.5 mg of spironolactone and without hurting his hemodynamics and going to give him just 0.5 mg of digoxin as a brief loading dose and then begin his maintenance dose today of 0.125 mg daily this is in the face of a 30 cc GFR but keep him on the BiPAP as long as I can I think that would help to promote diuresis and help us achieve euvolemia Time Spent With Patient Time: Total time managing care of this patient today ____ minutes. Progress Note: Quality Stroke Does the patient have a stroke diagnosis?: No
[2022-04-10] MEDS: Nystatin Powder 15 GM BOTTLE 1 APPL TOPICAL ×3 (10:07→21:22)
--- NOTE | 2022-04-10 10:29 | MHC.CLN ---
F/U STAGE II WOUND TO LEFT BUTTOCK IDENTIFIED 04/09. ADDING ENSURE BID TO PROMOTE WOUND HEALING. PROVIDES ADDITIONAL 700 KCALS, 40 G PROTEIN. CONTINUE LOW SODIUM, LOW POTASSIUM DIET.
--- NOTE | 2022-04-10 14:06 | PM.CCPN ---
Subjective Subjective Date of Service: 04/10/22 Interval History: 77-year-old gentleman with underlying history of AFib, CKD stage 3, ESBL Klebsiella UTI, systolic heart failure with prolonged hospital stay, now waiting placement transferred to intensive care unit overnight for acute hypoxia with pulmonary edema secondary to increased fluid retention as patient was not on standing diuretic dose And AFib with RVR briefly requiring BiPAP support for respiratory effort and not for hypercapnia. Patient responded well to diuresis and was titrated off BiPAP support. He also was started on digoxin for rate control. Critical Care Time (minutes): 0 Physical Exam Vital Signs: Vital Signs: Last Vital Signs Temp 97.4 F 04/10/22 11:16 Pulse 100 04/10/22 13:00 Resp 15 04/10/22 13:00 BP 112/84 04/10/22 13:00 Pulse Ox 93 04/10/22 13:00 O2 Del Method 04/10/22 13:00 O2 Flow Rate 2 04/07/22 03:58 FiO2 30 04/10/22 07:00 Oxygen Flow Rate 30 04/10/22 05:25 BMI result Body Mass Index 26.4 Const: General: no acute distress, alert and awake Eyes: Sclerae: sclerae normal EOM: EOMs intact bilaterally Neck: Neck: Yes no lymphadenopathy, Yes trachea midline and Yes supple Resp: Effort & Inspection: normal respiratory effort and no respiratory distress Auscultation: crackles ( bibasilar) Cardio: Rate: tachycardic Rhythm: abnormal rhythm irregularly irregular Heart sounds: no gallops, no murmurs and no rubs GI: Palpation (GI): Soft to palpation and Other GI palpation findings present ( Nontender) Auscultation: normal bowel sounds Extrem: General: No clubbing, No cyanosis and Yes edema ( 1+ bilateral) Objective Data Labs CBC & Chem 7: 04/10/22 04:18 04/10/22 04:18 Labs: Laboratory Results - last 24 hr 04/10/22 04/10/22 04/10/22 04:17 04:18 04:18 WBC RBC Hgb Hct MCV MCH MCHC RDW Plt Count MPV Immature Gran % (Auto) Neut % (Auto) Lymph % (Auto) [place] % (Auto) Eos % (Auto) Baso % (Auto) Lymph # (Auto) [place] # (Auto) Eos # (Auto) Baso # (Auto) Abs Immat Gran (auto) Absolute Neuts (auto) Absolute Nucleated RBC Nucleated RBC % (auto) Sodium Potassium Chloride Carbon Dioxide Anion Gap BUN Creatinine Estim Creat Clear Calc Estimated GFR Random Glucose Lactic Acid 1.7 Calcium Total Bilirubin AST ALT Alkaline Phosphatase Troponin I High Sens 18.7 B-Natriuretic Peptide 7362 H Total Protein Albumin 04/10/22 04/10/22 04:18 04:18 WBC 6.3 RBC 3.86 L Hgb 11.4 L Hct 35.7 L MCV 92.5 MCH 29.5 MCHC 31.9 RDW 18.6 H Plt Count 227 MPV 9.7 Immature Gran % (Auto) 0.5 H Neut % (Auto) 46.6 Lymph % (Auto) 39.4 [place] % (Auto) 12.1 H Eos % (Auto) 1.1 Baso % (Auto) 0.3 Lymph # (Auto) 2.5 [place] # (Auto) 0.8 Eos # (Auto) 0.1 Baso # (Auto) 0.0 Abs Immat Gran (auto) 0.03 Absolute Neuts (auto) 2.9 Absolute Nucleated RBC 0.000 Nucleated RBC % (auto) 0.0 Sodium 131 L Potassium 5.0 Chloride 98 Carbon Dioxide 23 Anion Gap 15 BUN 36 H Creatinine 1.71 H Estim Creat Clear Calc 37.3 Estimated GFR 39 Random Glucose 123 H Lactic Acid Calcium 9.5 Total Bilirubin 2.4 H AST 22 ALT 23 Alkaline Phosphatase 133 H Troponin I High Sens B-Natriuretic Peptide Total Protein 6.6 Albumin 3.7 Microbiology Microbiology Results: Microbiology 04/08/22 17:15 Urine Catheterized - Garcia Catheter Urine Culture - Preliminary Escherichia coli 02/17/22 14:04 Blood - Venous Blood Culture - Final No growth after 5 days. 02/17/22 13:05 Blood - Venous Blood Culture - Final No growth after 5 days. 02/17/22 15:33 Urine clean catch - Urine bowers top Urine Culture - Final Klebsiella pneumoniae Progress Note: A&P Assessment and plan (1) Cardiomyopathy: Status: Acute (2) Pulmonary edema: Status: Acute (3) Chronic a-fib: Status: Acute (4) DAWIT (acute kidney injury): Status: Acute Plan Assessment: 77-year-old gentleman with multiple medical issues with prolonged hospital stay, now waiting placement who developed AFib with RVR with pulmonary edema and acute respiratory failure briefly requiring BiPAP support, improved significantly with diuresis and rate control. Plan: Neuro: No acute issues. Cardiac: Acute on chronic systolic heart failure with pulmonary edema and AFib, improved with diuresis. Continue on stenting diuretic for euvolemia and digoxin for rate control Pulmonary: acute hypoxic respiratory failure secondary to pulmonary edema, now titrated of noninvasive positive pressure ventilatory support. Continue to titrate off supplemental oxygen as tolerated. Renal: No acute issues. Underlying chronic renal disease. Endo: No acute issues. GI: No acute issues. ID: No acute issues. Underlying history of ESBL UTI. Heme/Onc: No acute issues. Psych: No acute issues. Miscellaneous: No acute issues. Prophylaxis: Xarelto Diet: regular Quality Stroke Does the patient have a stroke diagnosis?: No VTE Prior VTE?: No VTE Risk Level:: Medical - moderate - high VTE Device Contraindication: N/A - Device Ordered VTE Drug Contraindication: Treatment Not Indicated
[2022-04-10] MEDS: Lactulose 20 GM/30 ML SOLUTION 30 GM PO (14:40)
--- NOTE | 2022-04-10 15:37 | PM.PNNEP ---
Subjective Subjective Date of Service: 04/10/22 Interval history: 77-year-old gentleman with underlying history of AFib, CKD stage 3, ESBL Klebsiella UTI, systolic heart failure with prolonged hospital stay, now waiting placement transferred to intensive care unit overnight for acute hypoxia with pulmonary edema secondary to increased fluid retention as patient was not on standing diuretic dose And AFib with RVR briefly requiring BiPAP support for respiratory effort and not for hypercapnia. Physical Exam Vital Signs: Vital Signs: Last Vital Signs Temp 97.4 F 04/10/22 11:16 Pulse 96 04/10/22 15:00 Resp 19 04/10/22 15:00 BP 112/88 04/10/22 15:00 Pulse Ox 92 04/10/22 15:00 O2 Del Method 04/10/22 15:00 O2 Flow Rate 2 04/07/22 03:58 FiO2 30 04/10/22 07:00 Oxygen Flow Rate 30 04/10/22 05:25 BMI result Body Mass Index 26.4 Const: Other: General? resting comfortably in no acute distress.? Neck supple no JVD. CVS? regular rate rhythm, Respiratory lungs clear to auscultation, no respiratory distress, no wheeze, no rhonchi. Gastrointestinal abdomen soft, nontender, bowel sounds audible, no guarding , no rigidity. Extremities no? edema. Rectal examination open wound perianal area with drainage of soft stool, mild surrounding? erythema Neuro nonfocal, moving all 4 extremity, speech clear. Skin no rash Psych appropriate affect General: cooperative, comfortable, no acute distress, well developed, alert, awake and lethargic Nutritional Appearance: well nourished Orientation/consciousness: patient oriented x3 and lethargic Limitations: no limitations and altered mental status HEENT: Other: Unremarkable Head: Yes normal to inspection, Yes normocephalic and Yes atraumatic Face and sinus: Yes normal facial exam Mouth: Normal oral and palatal mucosa present Teeth and gingiva: dentition normal Eyes: General: appearance normal, both eyes and all related structures Sclerae: sclerae normal Pupils: Equal, round and reactive pupils present EOM: EOMs intact bilaterally Neck: Neck: Yes normal visual inspection, Yes no lymphadenopathy, Yes trachea midline and Yes supple Chest: Chest palpation & inspection: normal inspection of the chest Resp: Other: Clear to auscultation bilaterally no rales rhonchi or wheezes Effort & Inspection: normal respiratory effort and no respiratory distress Auscultation: clear to auscultation bilaterally and crackles ( bibasilar) Cardio: Other: No S4; positive S1-S2; no S3 murmurs rubs or gallops Palpation: normal PMI Rate: regular rate and tachycardic Rhythm: regular rhythm and abnormal rhythm irregularly irregular Heart sounds: S1 normal heart sound present, S2 normal heart sound present, no gallops, no murmurs and no rubs GI: Other: rectal wound with stool c/w fistulous connection, traumatic Inspection: Yes normal to inspection Palpation (GI): Soft to palpation, not firm, nontender, no guarding, not rigid, Pulsatile mass present and Other GI palpation findings present ( Nontender) Percussion: Yes normal to percussion Auscultation: normal bowel sounds : Other: open wound perianal area with drainage of soft stool, mild surrounding redness General: Yes no CVA tenderness Back/Spine/Pelvis: Other: Granulating wound with fecalent discharge Back: no CVA tenderness Skin: Other: Warm, dry, no rash, normal color General skin exam: no rashes or lesions noted Neuro: Other: patient somnolent but arousable, unable to assess neuro exam General: patient oriented x3 and moves all extremities Cranial nerves: Yes Equal, round and reactive pupils present Extrem: Other: No edema bilaterally General: Yes normal to inspection, Yes no clubbing, cyanosis or edema, Yes no pedal edema, No clubbing, No cyanosis and Yes edema ( 1+ bilateral) Psych: Appearance: grossly normal Mental Status: mental status grossly abnormal Objective Data Labs CBC & Chem 7: 04/10/22 04:18 04/10/22 04:18 Labs: Laboratory Results - last 24 hr 04/10/22 04/10/22 04/10/22 04:17 04:18 04:18 WBC RBC Hgb Hct MCV MCH MCHC RDW Plt Count MPV Immature Gran % (Auto) Neut % (Auto) Lymph % (Auto) [place] % (Auto) Eos % (Auto) Baso % (Auto) Lymph # (Auto) [place] # (Auto) Eos # (Auto) Baso # (Auto) Abs Immat Gran (auto) Absolute Neuts (auto) Absolute Nucleated RBC Nucleated RBC % (auto) Sodium Potassium Chloride Carbon Dioxide Anion Gap BUN Creatinine Estim Creat Clear Calc Estimated GFR Random Glucose Lactic Acid 1.7 Calcium Total Bilirubin AST ALT Alkaline Phosphatase Troponin I High Sens 18.7 B-Natriuretic Peptide 7362 H Total Protein Albumin 04/10/22 04/10/22 04:18 04:18 WBC 6.3 RBC 3.86 L Hgb 11.4 L Hct 35.7 L MCV 92.5 MCH 29.5 MCHC 31.9 RDW 18.6 H Plt Count 227 MPV 9.7 Immature Gran % (Auto) 0.5 H Neut % (Auto) 46.6 Lymph % (Auto) 39.4 [place] % (Auto) 12.1 H Eos % (Auto) 1.1 Baso % (Auto) 0.3 Lymph # (Auto) 2.5 [place] # (Auto) 0.8 Eos # (Auto) 0.1 Baso # (Auto) 0.0 Abs Immat Gran (auto) 0.03 Absolute Neuts (auto) 2.9 Absolute Nucleated RBC 0.000 Nucleated RBC % (auto) 0.0 Sodium 131 L Potassium 5.0 Chloride 98 Carbon Dioxide 23 Anion Gap 15 BUN 36 H Creatinine 1.71 H Estim Creat Clear Calc 37.3 Estimated GFR 39 Random Glucose 123 H Lactic Acid Calcium 9.5 Total Bilirubin 2.4 H AST 22 ALT 23 Alkaline Phosphatase 133 H Troponin I High Sens B-Natriuretic Peptide Total Protein 6.6 Albumin 3.7 Microbiology Microbiology Results: Microbiology 04/08/22 17:15 Urine Catheterized - Garcia Catheter Urine Culture - Preliminary Escherichia coli 02/17/22 14:04 Blood - Venous Blood Culture - Final No growth after 5 days. 02/17/22 13:05 Blood - Venous Blood Culture - Final No growth after 5 days. 02/17/22 15:33 Urine clean catch - Urine bowers top Urine Culture - Final Klebsiella pneumoniae Procedures Date of Service Date of Service: 04/10/22 Assessment & Plan Assessment and plan (1) Cardiomyopathy: Status: Acute (2) Pulmonary edema: Status: Acute (3) Chronic a-fib: Status: Acute (4) DAWIT (acute kidney injury): Status: Acute Assessment and Plan: DAWIT stable tolerating diuresis creat up a bit today if continues to rise may need diuretic holiday Plan Assessment: 77-year-old gentleman with multiple medical issues with prolonged hospital stay, now waiting placement who developed AFib with RVR with pulmonary edema and acute respiratory failure briefly requiring BiPAP support, improved significantly with diuresis and rate control. Time Spent With Patient Time: Total time managing care of this patient today ____ minutes. Progress Note: Quality Stroke Does the patient have a stroke diagnosis?: No
--- NOTE | 2022-04-10 15:54 | MHC.CM.PN ---
Pt continues care in ICU: started on Digoxin for AFib: extensive [place] LTC search continued: updated for possible consideration considering his new treatment. CM to follow
--- NOTE | 2022-04-10 15:59 | PM.EVENT ---
Event Note Date of Service: 04/10/22 Event Note: Patient was transferred to the ICU because of acute hypoxemic respiratory failure secondary to possible CHF exacerbation. Patient was given IV diuresis , shortness of breath seems to be improving ICU downgrade the patient this afternoon physical exam: unchanged from icu note. asssessment and plan coordinated in ICU note. chf excerebation -continue bumex moniter i/o daily weight cardiology eval patient is c/o dysuria: urine culture -ecoli' has hx of esbl -switched to iv meropenem. id eval Time Spent With Patient Time: Total time managing care of this patient today ____ minutes.
[2022-04-10] MEDS: Rivaroxaban 15 MG TABLET PO (17:11)
[2022-04-11] VITALS (13 sets, daily range): BP systolic 112–148; BP diastolic 75–98; PULSE 62–111; RESP 10–26; TEMP 36–36.9; O2SAT 93–97
[2022-04-11] MEDS: Melatonin 3 MG TABLET PO (00:12)
[2022-04-11] MEDS: ondansetron HCL 4 MG/2 ML VIAL IVPUSH (00:12)
[2022-04-11 03:42] LABS: Hematocrit 37.2 % (42.0-52.0); Hemoglobin 11.7 g/dl (14.0-18.0); Mean Corpuscular HGB Conc 31.5 g/dl (31.0-36.0); Mean Corpuscular Hemoglobin 29.1 pg (27.0-33.0); Mean Corpuscular Volume 92.5 fL (80.0-98.0); Platelet Count 215 X10*3/uL (160-400); Red Blood Count 4.02 X10*6/uL (4.60-5.80); Red Cell Distribution Width 18.4 % (11.0-16.0); White Blood Count 5.9 X10*3/uL (4.8-10.8)
[2022-04-11 04:01] LABS: Anion Gap 17 (12-20); Blood Urea Nitrogen 36 mg/dL (9-16); Calcium 9.3 mg/dL (8.4-10.2); Carbon Dioxide 19 mmol/L (22-29); Chloride 100 mmol/L (96-108); Creatinine Clr Calc Pharmacy 39.3; Estimated Glomerular Filt Rate 41; Glucose Random 115 mg/dL (60-115); Magnesium 2.1 mg/dL (1.6-2.6); Potassium 4.8 mmol/L (3.3-5.1); Sodium 131 mmol/L (135-145)
--- NOTE | 2022-04-11 04:07 | PC.NURSE ---
pt had 12 beats of vtach, pt a symptomatic, vitals signs WNL,v returned to AFib 90s to 100s. made aware, new order for CBC BMP and Mag. will cont to monitor
[2022-04-11] MEDS: Acetaminophen 325 MG TABLET 650 MG PO ×2 (04:38→17:01)
[2022-04-11] MEDS: 0.9 % Sodium Chloride Flush 3 ML SYRINGE IVFLUSH ×2 (07:01→15:27)
[2022-04-11] MEDS: Digoxin 0.125 MG TABLET PO (08:31)
[2022-04-11] MEDS: Bumetanide 1 MG TABLET PO (08:31)
[2022-04-11] MEDS: carvediloL 6.25 MG TABLET PO ×2 (08:31→20:26)
[2022-04-11] MEDS: Nystatin Powder 15 GM BOTTLE 1 APPL TOPICAL ×3 (08:32→20:26)
[2022-04-11] MEDS: Tamsulosin HCL 0.4 MG CAPSULE PO (08:32)
[2022-04-11] MEDS: Folic Acid 1 MG TABLET PO (08:32)
--- NOTE | 2022-04-11 13:06 | HO.PM.IMPN ---
Subjective Subjective Date of Service: 04/11/22 Interval History: Seen in f/u for post ICU care for acute hypoxic respirator failure due to fluid overlood, chf, and afib with rvr and required bipap briefly and was transfer the next day. Today he is more lethargic, very sleepy and vitals are ok. reviewed meds and only potential sedating med was melatonin last night. there are no localized neurological sings. He opens his eyes upon calling his name and says few words. ABG looks ok Review of Systems drowsy, not able to get much out of him Physical Exam Vital Signs: Vital Signs: Last Vital Signs Temp 98.4 F 04/11/22 12:00 Pulse 65 04/11/22 12:00 Resp 10 L 04/11/22 12:00 BP 112/75 04/11/22 12:00 Pulse Ox 94 04/11/22 12:00 O2 Del Method 04/11/22 12:00 O2 Flow Rate 2 04/07/22 03:58 FiO2 30 04/10/22 07:00 Oxygen Flow Rate 30 04/10/22 05:25 BMI result Body Mass Index 26.4 Objective Data Active Medications Acetaminophen (Acetaminophen 325 Mg Tablet) 650 mg PO Q6H PRN PRN Reason: Pain, Mild (Pain Scale 1-3) Last Admin: 04/11/22 04:38 Dose: 650 mg Documented By: FARIBA Benzonatate (Benzonatate 100 Mg Capsule) 100 mg PO TID PRN PRN Reason: Cough Last Admin: 02/22/22 16:03 Dose: 100 mg Documented By: BOGDAN Bumetanide (Bumetanide 1 Mg Tablet) 1 mg PO DAILY [facility]; Protocol Last Admin: 04/11/22 08:31 Dose: 1 mg Documented By: MARY KAY Carvedilol (Carvedilol 6.25 Mg Tablet) 6.25 mg PO BID [facility]; Protocol Last Admin: 04/11/22 08:31 Dose: 6.25 mg Documented By: MARY KAY Digoxin (Digoxin 0.125 Mg Tablet) 0.125 mg PO DAILY [facility] Last Admin: 04/11/22 08:31 Dose: 0.125 mg Documented By: MARY KAY Docusate Sodium (Docusate Sodium 100 Mg Capsule) 100 mg PO BEDTIME PRN PRN Reason: Constipation Folic Acid (Folic Acid 1 Mg Tablet) 1 mg PO DAILY [facility] Last Admin: 04/11/22 08:32 Dose: 1 mg Documented By: MARY KAY Meropenem 1 gm/ Sodium (Chloride) 100 mls @ 200 mls/hr IV Q12H [facility] Last Infusion: 04/11/22 05:14 Dose: 0 mls/hr Documented By: FARIBA Melatonin (Melatonin 3 Mg Tablet) 3 mg PO BEDTIME PRN PRN Reason: Insomnia Last Admin: 04/11/22 00:12 Dose: 3 mg Documented By: FARIBA Nystatin (Nystatin Powder 15 Gm Bottle) 1 appl TOPICAL TID [facility]; Protocol Last Admin: 04/11/22 08:32 Dose: 1 appl Documented By: MARY KAY Omeprazole (Omeprazole 20 Mg Capsule.Dr) 20 mg PO DAILY@0630 [facility] Last Admin: 04/11/22 06:26 Dose: Not Given Documented By: FARIBA Non-Admin Reason: Patient Asleep Ondansetron HCl (Ondansetron Hcl 4 Mg/2 Ml Vial) 4 mg IVPUSH Q8H PRN PRN Reason: Nausea and Vomiting Last Admin: 04/11/22 00:12 Dose: 4 mg Documented By: FARIBA Pharmacy Consult (Consult Rx Perform Med Rec) 1 each MISCELLANE ONCE PRN PRN Reason: Consult order Rivaroxaban (Rivaroxaban 15 Mg Tablet) 15 mg PO DAILY@1700 [facility] Last Admin: 04/10/22 17:11 Dose: 15 mg Documented By: ONEIDA Sodium Chloride (0.9 % Sodium Chloride Flush 3 Ml Syringe) 3 ml IVFLUSH QSHIFT [facility] Last Admin: 04/11/22 07:01 Dose: 3 ml Documented By: CELINE Tamsulosin HCl (Tamsulosin Hcl 0.4 Mg Capsule) 0.4 mg PO DAILY [facility] Last Admin: 04/11/22 08:32 Dose: 0.4 mg Documented By: MARY KAY Labs CBC & Chem 7: 04/11/22 03:34 04/11/22 03:34 Labs: Laboratory Results - last 24 hr 04/11/22 04/11/22 03:34 03:34 MCV 92.5 MCH 29.1 MCHC 31.5 RDW 18.4 H Plt Count 215 MPV 10.0 Absolute Nucleated RBC 0.000 Nucleated RBC % (auto) 0.0 Anion Gap 17 Estim Creat Clear Calc 39.3 Estimated GFR 41 Random Glucose 115 Calcium 9.3 Magnesium 2.1 Microbiology Microbiology Results: Microbiology 04/08/22 17:15 Urine Culture - Final Urine Catheterized - Garcia Catheter Escherichia coli Assessment and Plan (1) Acute on chronic congestive heart failure: Status: Acute Plan 77yo M with hx chronic HFrEF, AF s/p PPM 2019 AC on rivaroxaban, CKD3, unspecified dementia, brought in after falling in the [place] while intoxicated and developing an open anal wound with fecal drainage admitted for perirectal perforation/cellulitis. He was transferred to intensive care unit overnight of 04/09 for acute hypoxia with pulmonary edema secondary to increased fluid overload, AFib with RVR briefly requiring BiPAP support for respiratory effort and not for hypercapnia.? He was diuressed with good effect and ultimately taking off bid Acute respiratory failure with hypoxia due to heart failure--acute respiratory failure has resolved. decompensated acute on chronic systolic heart failure EF 15 required IV diuresis in ICU bid, now just once daily oral Bumex Drowsiness--ABG is fine, he's become more alert and will continue watch and if worse then CT of head Perirectal perforation/cellulitis -? fecal drainage through open perianal wound Persists ? cellulitis resolved. ? no acute issues r/t perforation Urinary retention - prn bladder scan, straight cath PRN bladder scan seems fine freddie on CKD3,hyponatremia hyperkalemia ,AGMA,low bicarb-resolved with bicarb drip. has some diarrhae -at baseline -follow renals/divalents ?hyponatremia resolved? freddie improvin continue to moniter generalized pain continue Tylenol and prn oxycodone recommend out of bed to chair Permanent AFIB--tachycardia, today, continue Coreg and Xarelto. N/V abd discomfort 03/29, resolved, CT no acute finding routine labs CBC, chem unremarkable' Agitation, hallucinations at time, consider zyprexa or seroquel PRN has agitation last night ,also ?generalised pain unlcear added oxycodone ,tylenol ,trazodone for sleep psych eval noted. ?DVT prophylaxis Rivaroxaban DNR/DNI Time Spent With Patient Time: Total time managing care of this patient today ____ minutes. Quality Stroke Does the patient have a stroke diagnosis?: No VTE Prior VTE?: No VTE Risk Level:: Medical - moderate - high VTE Device Contraindication: N/A - Device Ordered VTE Drug Contraindication: Treatment Not Indicated
[2022-04-11 13:34] LABS: ABG Base Excess -1.9 mmol/L; ABG HCO3 21 mmol/L (22-26); ABG pCO2 32 mmHg (32-45); ABG pH 7.42 (7.35-7.45); ABG pO2 71 mmHg (83-108)
--- NOTE | 2022-04-11 13:43 | PC.NURSE ---
08:00 patient eyes open to name, alert, awake. A+Ox1 at baseline. 12:00 patient noted to need light stimuli to open eyes. Pt able to state name. 13:15 patient needs continuous stimuli / sternal rub to open eyes. Pt does not answer questions. RR 9 breaths/min. MD notified and ABGs ordered. 13:27 ABG WNL
--- NOTE | 2022-04-11 14:41 | PM.CNCAR ---
History of Present Illness History of Present Illness Date of Service: 04/11/22 Requesting physician: Rangel Belle Chief complaint: CHF Narrative: 77-year-old gentleman who we have been reconsulted for for management of congestive heart failure. He was seen by Dr. Mejia in January 2020 to when he presented with perforated rectum. He has severe cardiomyopathy with EF of 10-15%. He also had atrial fibrillation for which he has been on Coumadin. He also has background of severe mitral valve regurgitation, moderate severe tricuspid regurgitation and pulmonary hypertension. He has dementia. He is currently in the intensive care unit. It appears he has shortness of breath and required BiPAP and diuretics. He is very sleepy and difficult to arouse currently. History is not possible currently. [facility] Past Medical History Medical History Afib Alcohol abuse Anticoagulant long-term use BPH (benign prostatic hyperplasia) Cardiomyopathy CKD (chronic kidney disease) ESBL (extended spectrum beta-lactamase) producing bacteria infection HTN (hypertension) Pacemaker Family History Family History Mother Lung abnormality Family history: reviewed and not pertinent Social History Social History Household Members: Unknown / Unable to assess Housing: Unknown / Unable to assess Unable to assess alcohol history related to: Refusing to respond Alcohol intake: former Patient Tobacco Use Status: Former Tobacco user service: No Meds Allergies Allergy/AdvReac Type Severity Reaction Status Date / Time No Known Allergies Allergy Verified 02/17/22 12:33 Active Medications: Current Medications Acetaminophen (Acetaminophen 325 Mg Tablet) 650 mg PO Q6H PRN PRN Reason: Pain, Mild (Pain Scale 1-3) Last Admin: 04/11/22 04:38 Dose: 650 mg Benzonatate (Benzonatate 100 Mg Capsule) 100 mg PO TID PRN PRN Reason: Cough Last Admin: 02/22/22 16:03 Dose: 100 mg Bumetanide (Bumetanide 1 Mg Tablet) 1 mg PO DAILY [facility]; Protocol Last Admin: 04/11/22 08:31 Dose: 1 mg Carvedilol (Carvedilol 6.25 Mg Tablet) 6.25 mg PO BID [facility]; Protocol Last Admin: 04/11/22 08:31 Dose: 6.25 mg Digoxin (Digoxin 0.125 Mg Tablet) 0.125 mg PO DAILY [facility] Last Admin: 04/11/22 08:31 Dose: 0.125 mg Docusate Sodium (Docusate Sodium 100 Mg Capsule) 100 mg PO BEDTIME PRN PRN Reason: Constipation Folic Acid (Folic Acid 1 Mg Tablet) 1 mg PO DAILY [facility] Last Admin: 04/11/22 08:32 Dose: 1 mg Meropenem 1 gm/ Sodium (Chloride) 100 mls @ 200 mls/hr IV Q12H [facility] Last Infusion: 04/11/22 05:14 Dose: Infused Melatonin (Melatonin 3 Mg Tablet) 3 mg PO BEDTIME PRN PRN Reason: Insomnia Last Admin: 04/11/22 00:12 Dose: 3 mg Nystatin (Nystatin Powder 15 Gm Bottle) 1 appl TOPICAL TID [facility]; Protocol Last Admin: 04/11/22 08:32 Dose: 1 appl Omeprazole (Omeprazole 20 Mg Capsule.Dr) 20 mg PO DAILY@0630 [facility] Last Admin: 04/11/22 06:26 Dose: Not Given Ondansetron HCl (Ondansetron Hcl 4 Mg/2 Ml Vial) 4 mg IVPUSH Q8H PRN PRN Reason: Nausea and Vomiting Last Admin: 04/11/22 00:12 Dose: 4 mg Pharmacy Consult (Consult Rx Perform Med Rec) 1 each MISCELLANE ONCE PRN PRN Reason: Consult order Rivaroxaban (Rivaroxaban 15 Mg Tablet) 15 mg PO DAILY@1700 [facility] Last Admin: 04/10/22 17:11 Dose: 15 mg Sodium Chloride (0.9 % Sodium Chloride Flush 3 Ml Syringe) 3 ml IVFLUSH QSHIFT [facility] Last Admin: 04/11/22 07:01 Dose: 3 ml Tamsulosin HCl (Tamsulosin Hcl 0.4 Mg Capsule) 0.4 mg PO DAILY [facility] Last Admin: 04/11/22 08:32 Dose: 0.4 mg Home Medications Medication Instructions Recorded Confirmed Last Taken Type acetaminophen 325 mg tablet 650 mg PO Q6H PRN Pain 02/17/22 02/17/22 Unknown History carvedilol 6.25 mg tablet 1 tab PO BID 02/17/22 02/17/22 02/17/22 History enalapril maleate 2.5 mg tablet 1 tab PO BID 02/17/22 02/17/22 02/17/22 History folic acid 1 mg tablet 1 tab PO DAILY 02/17/22 02/17/22 02/17/22 History furosemide 80 mg tablet 1 tab PO BID 02/17/22 02/17/22 02/17/22 History omeprazole 20 mg capsule,delayed 20 mg PO DAILY@0630 02/17/22 02/17/22 Unknown History release rivaroxaban 15 mg tablet (Xarelto) 15 mg PO DAILY@1700 02/17/22 02/17/22 Unknown History spironolactone 25 mg tablet 1 tab PO DAILY 02/17/22 02/17/22 02/17/22 History tamsulosin 0.4 mg capsule 1 cap PO DAILY 02/17/22 02/17/22 02/17/22 History Physical Exam Vital Signs: Vital Signs: Last Vital Signs Temp 98.4 F 04/11/22 12:00 Pulse 65 04/11/22 12:00 Resp 10 L 04/11/22 12:00 BP 112/75 04/11/22 12:00 Pulse Ox 94 04/11/22 12:00 O2 Del Method 04/11/22 12:00 O2 Flow Rate 2 04/07/22 03:58 FiO2 30 04/10/22 07:00 Oxygen Flow Rate 30 04/10/22 05:25 BMI result Body Mass Index 26.4 GENERAL APPEARANCE: Sleepy and lethargic. Wakes up but goes back to sleep. NECK: no carotid bruit, no jugular venous distention. SKIN: no suspicious lesions, warm and dry. HEART: no murmurs, irregular rate and rhythm. LUNGS: clear to auscultation bilaterally. ABDOMEN: soft, nontender. EXTREMITIES: no edema. PERIPHERAL PULSES: equal. NEUROLOGIC: Sleepy/encephalopathic. Objective Labs and Meds Result diagrams: 04/11/22 03:34 04/11/22 03:34 Lab results: Laboratory Results - last 24 hr 04/11/22 04/11/22 04/11/22 03:34 03:34 13:27 WBC 5.9 RBC 4.02 L Hgb 11.7 L Hct 37.2 L MCV 92.5 MCH 29.1 MCHC 31.5 RDW 18.4 H Plt Count 215 MPV 10.0 Absolute Nucleated RBC 0.000 Nucleated RBC % (auto) 0.0 O2 Saturation 92.0 ABG pH at Pt Temp 7.42 ABG pCO2 at Pt Temp 32 ABG pO2 at Pt Temp 71 L ABG HCO3 21 L ABG Base Excess (Actual) -1.9 Sodium 131 L Potassium 4.8 Chloride 100 Carbon Dioxide 19 L Anion Gap 17 BUN 36 H Creatinine 1.62 H Estim Creat Clear Calc 39.3 Estimated GFR 41 Random Glucose 115 Calcium 9.3 Magnesium 2.1 Assessment and Plan (1) Acute on chronic congestive heart failure: Status: Acute Plan 77-year-old gentleman with known history of congestive heart failure with EF of 10-15%. He has been in the hospital for long time. It appears he had congestive heart failure episode and required BiPAP and is currently in the ICU. Does not appear volume overloaded currently. Agree with continuing oral Bumex. He is on carvedilol 6.25 mg twice a day. He is also on daily digoxin. Carvedilol Entresto digoxin increases digoxin level. Patient has chronic kidney disease. I think digoxin should be changed to every other day. If creatinine is stable then can consider adding low-dose losartan 25 mg once a day. Otherwise no further recommendations. Quite lethargic and sleepy. Unsure whether this is his baseline but will discuss with medicine team. Thank you for allowing me to participate in the care of your patient. Please feel free to contact me if you have any questions. Time Spent With Patient Time: Total time managing care of this patient today ____ minutes. Procedures Date of Service Date of Service: 04/11/22
--- NOTE | 2022-04-11 16:17 | MHC.CM.PN ---
Referrals updated on 04/10 as pt has [facility] and can transfer to a LTC facility. No offers: [facility], who has shown interest does not have male LTC beds available at this time. Will continue LTC bed search
[2022-04-11] MEDS: Rivaroxaban 15 MG TABLET PO (16:50)
[2022-04-11 23:13] LABS: ABG Refer to POC result
[2022-04-12] MEDS: 0.9 % Sodium Chloride Flush 3 ML SYRINGE IVFLUSH ×4 (00:10→20:56)
[2022-04-12 03:28] VITALS: PULSE 74; RESP 17
[2022-04-12] MEDS: Omeprazole 20 MG CAPSULE.DR PO (05:29)
[2022-04-12 07:16] VITALS: BP 145/90; PULSE 78; RESP 15; TEMP 36.8; O2SAT 96
[2022-04-12 07:22] LABS: Glucose, Whole Blood 142 mg/dL (60-115)
--- NOTE | 2022-04-12 08:57 | MHC.CLN ---
F/U VARIABLE PO INTAKE DIET RX: 2GM NA, LOW K+-APPROPRIATE PT RECEIVING ENSURE BID TO INCREASE KCALS AND PROMOTE WOUND HEALING SUPP PROVIDES 700KCALS, 40G PROTEIN NOTED PRESSURE CHANGED TO ABSCESS CONTINUE TO MONITOR PO INTAKE CLOSELY AND ENCOURAGE SUPPLEMENT
[2022-04-12] MEDS: Tamsulosin HCL 0.4 MG CAPSULE PO (09:15)
[2022-04-12] MEDS: carvediloL 6.25 MG TABLET PO ×2 (09:15→20:43)
[2022-04-12] MEDS: Bumetanide 1 MG TABLET PO (09:15)
[2022-04-12] MEDS: Folic Acid 1 MG TABLET PO (09:15)
[2022-04-12] MEDS: Digoxin 0.125 MG TABLET PO (09:15)
[2022-04-12] MEDS: Acetaminophen 325 MG TABLET 650 MG PO ×2 (09:15→20:44)
[2022-04-12] MEDS: Nystatin Powder 15 GM BOTTLE 1 APPL TOPICAL ×3 (09:21→20:51)
--- NOTE | 2022-04-12 09:32 | P.PNIM_ITS ---
Subjective Subjective Date of Service: 04/12/22 Interval History: Seen in f/u for post ICU care for acute hypoxic respirator failure due to fluid overlood, chf, and afib with rvr and required bipap briefly and was transfer the next day. he was very lethargic yesterday but is much better today, more awake and talking Review of Systems no fever no sob Physical Exam Vital Signs: Vital Signs: Last Vital Signs Temp 98.3 F 04/12/22 07:16 Pulse 78 04/12/22 07:16 Resp 15 04/12/22 07:16 BP 145/90 H 04/12/22 07:16 Pulse Ox 96 04/12/22 07:16 O2 Del Method 04/12/22 07:16 O2 Flow Rate 2 04/07/22 03:58 FiO2 30 04/10/22 07:00 Oxygen Flow Rate 30 04/10/22 05:25 BMI result Body Mass Index 26.4 Const: Other: General? resting comfortably in no acute distress.? Neck supple no JVD. CVS? regular rate rhythm, Respiratory lungs clear to auscultation, no respiratory distress, no wheeze, no rhonchi. Gastrointestinal abdomen soft, nontender, bowel sounds audible, no guarding , no rigidity. Extremities no? edema. Rectal examination open wound perianal area with drainage of soft stool, mild surrounding? erythema Neuro nonfocal, moving all 4 extremity, speech clear. Skin no rash Psych appropriate affect Objective Data Active Medications Acetaminophen (Acetaminophen 325 Mg Tablet) 650 mg PO Q6H PRN PRN Reason: Pain, Mild (Pain Scale 1-3) Last Admin: 04/12/22 09:15 Dose: 650 mg Documented By: ANNEL Benzonatate (Benzonatate 100 Mg Capsule) 100 mg PO TID PRN PRN Reason: Cough Last Admin: 02/22/22 16:03 Dose: 100 mg Documented By: BOGDAN Bumetanide (Bumetanide 1 Mg Tablet) 1 mg PO DAILY [facility] OF [facility]; Protocol Last Admin: 04/12/22 09:15 Dose: 1 mg Documented By: ANNEL Carvedilol (Carvedilol 6.25 Mg Tablet) 6.25 mg PO BID [facility] OF [facility]; Protocol Last Admin: 04/12/22 09:15 Dose: 6.25 mg Documented By: ANNEL Digoxin (Digoxin 0.125 Mg Tablet) 0.125 mg PO DAILY ON [facility] OF [facility] Last Admin: 04/12/22 09:15 Dose: 0.125 mg Documented By: ANNEL Docusate Sodium (Docusate Sodium 100 Mg Capsule) 100 mg PO BEDTIME PRN PRN Reason: Constipation Folic Acid (Folic Acid 1 Mg Tablet) 1 mg PO DAILY [facility] Last Admin: 04/12/22 09:15 Dose: 1 mg Documented By: ANNEL Meropenem 1 gm/ Sodium (Chloride) 100 mls @ 200 mls/hr IV Q12H [facility] Last Infusion: 04/12/22 06:21 Dose: 0 mls/hr Documented By: ILAN Melatonin (Melatonin 3 Mg Tablet) 3 mg PO BEDTIME PRN PRN Reason: Insomnia Last Admin: 04/11/22 00:12 Dose: 3 mg Documented By: FARIBA Nystatin (Nystatin Powder 15 Gm Bottle) 1 appl TOPICAL TID [facility]; Protocol Last Admin: 04/12/22 09:21 Dose: 1 appl Documented By: ANNEL Omeprazole (Omeprazole 20 Mg Capsule.Dr) 20 mg PO DAILY@0630 [facility] Last Admin: 04/12/22 05:29 Dose: 20 mg Documented By: ILAN Ondansetron HCl (Ondansetron Hcl 4 Mg/2 Ml Vial) 4 mg IVPUSH Q8H PRN PRN Reason: Nausea and Vomiting Last Admin: 04/11/22 00:12 Dose: 4 mg Documented By: FARIBA Pharmacy Consult (Consult Rx Perform Med Rec) 1 each MISCELLANE ONCE PRN PRN Reason: Consult order Rivaroxaban (Rivaroxaban 15 Mg Tablet) 15 mg PO DAILY@1700 [facility] Last Admin: 04/11/22 16:50 Dose: 15 mg Documented By: MARY KAY Sodium Chloride (0.9 % Sodium Chloride Flush 3 Ml Syringe) 3 ml IVFLUSH QSHIFT ON LICENSE OF [facility] Last Admin: 04/12/22 09:15 Dose: 3 ml Documented By: ANNEL Tamsulosin HCl (Tamsulosin Hcl 0.4 Mg Capsule) 0.4 mg PO DAILY ON [facility] Last Admin: 04/12/22 09:15 Dose: 0.4 mg Documented By: ANNEL Labs CBC & Chem 7: 04/11/22 03:34 04/11/22 03:34 Labs: Laboratory Results - last 24 hr 04/11/22 04/12/22 13:27 07:18 O2 Saturation 92.0 ABG pH at Pt Temp 7.42 ABG pCO2 at Pt Temp 32 ABG pO2 at Pt Temp 71 L ABG HCO3 21 L ABG Base Excess (Actual) -1.9 POC Glucose 142 H Microbiology Microbiology Results: Microbiology 04/08/22 17:15 Urine Culture - Final Urine Catheterized - Garcia Catheter Escherichia coli Assessment and Plan (1) Acute on chronic congestive heart failure: Status: Acute Plan 77yo M with hx chronic HFrEF, AF s/p PPM 2019 AC on rivaroxaban, CKD3, unspecified dementia, brought in after falling in the [place] while intoxicated and developing an open anal wound with fecal drainage admitted for perirectal perforation/cellulitis. He was transferred to intensive care unit overnight of 04/09 for acute hypoxia with pulmonary edema secondary to increased fluid overload, AFib with RVR briefly requiring BiPAP support for respiratory effort and not for hypercapnia.? He was diuressed with good effect and ultimately taking off bid Acute respiratory failure with hypoxia due to heart failure--acute respiratory failure has resolved. decompensated acute on chronic systolic heart failure EF 15%, required IV diuresis in ICU bid, now just once daily oral Bumex 1mg Drowsiness 12.20 --ABG was fine, he is more alert, avoid sedative medications Resistant E. coli UTI--Meropenem since 04/10 (D3) Perirectal perforation/cellulitis -? fecal drainage through open perianal wound Persists ? cellulitis resolved. ? no acute issues r/t perforation Urinary retention - prn bladder scan, straight cath PRN bladder scan seems fine freddie on CKD3,hyponatremia hyperkalemia ,AGMA,low bicarb-resolved with bicarb drip. has some diarrhae -at baseline -follow renals/divalents ?hyponatremia resolved? freddie improvin continue to moniter generalized pain continue Tylenol and prn oxycodone recommend out of bed to chair Permanent AFIB-- rate controlled, continue, continue Xarelto N/V abd discomfort 03/29, resolved, CT no acute finding routine labs CBC, chem unremarkable' Agitation, hallucinations at time, consider zyprexa or seroquel PRN has agitation last night ,also ?generalised pain unlcear added oxycodone ,tylenol ,trazodone for sleep psych eval noted. ?DVT prophylaxis Rivaroxaban DNR/DNI need for inaptient: awaiting placement Time Spent With Patient Time: Total time managing care of this patient today ____ minutes. Quality Stroke Does the patient have a stroke diagnosis?: No VTE Prior VTE?: No VTE Risk Level:: Medical - moderate - high VTE Device Contraindication: N/A - Device Ordered VTE Drug Contraindication: Treatment Not Indicated
--- NOTE | 2022-04-12 10:00 | PM.PNNEP ---
Subjective Subjective Date of Service: 04/12/22 Interval history: Seen in f/u for post ICU care for acute hypoxic respirator failure due to fluid overlood, chf, and afib with rvr and required bipap briefly and was transfer the next day. he was very lethargic yesterday but is much better today, more awake and talking Physical Exam Vital Signs: Vital Signs: Last Vital Signs Temp 98.3 F 04/12/22 07:16 Pulse 78 04/12/22 07:16 Resp 15 04/12/22 07:16 BP 145/90 H 04/12/22 07:16 Pulse Ox 96 04/12/22 07:16 O2 Del Method 04/12/22 07:16 O2 Flow Rate 2 04/07/22 03:58 FiO2 30 04/10/22 07:00 Oxygen Flow Rate 30 04/10/22 05:25 BMI result Body Mass Index 26.4 Objective Data Labs CBC & Chem 7: 04/11/22 03:34 04/11/22 03:34 Labs: Laboratory Results - last 24 hr 04/11/22 04/12/22 13:27 07:18 O2 Saturation 92.0 ABG pH at Pt Temp 7.42 ABG pCO2 at Pt Temp 32 ABG pO2 at Pt Temp 71 L ABG HCO3 21 L ABG Base Excess (Actual) -1.9 POC Glucose 142 H Microbiology Microbiology Results: Microbiology 04/08/22 17:15 Urine Catheterized - Garcia Catheter Urine Culture - Final Escherichia coli 02/17/22 14:04 Blood - Venous Blood Culture - Final No growth after 5 days. 02/17/22 13:05 Blood - Venous Blood Culture - Final No growth after 5 days. 02/17/22 15:33 Urine clean catch - Urine bowers top Urine Culture - Final Klebsiella pneumoniae Procedures Date of Service Date of Service: 04/12/22 Assessment & Plan Assessment and plan (1) Acute on chronic congestive heart failure: Status: Acute (2) Cardiomyopathy: Status: Acute (3) DAWIT (acute kidney injury): Status: Acute Assessment and Plan: resolving DAWIT we can continue diuresis as necessary for the heart failure Plan 77yo M with hx chronic HFrEF, AF s/p PPM 2020 AC on rivaroxaban, CKD3, unspecified dementia, brought in after falling [place] the [place] while intoxicated and developing an open anal wound with fecal drainage admitted for perirectal perforation/cellulitis. He was transferred to intensive care unit overnight of 04/09 for acute hypoxia with pulmonary edema secondary to increased fluid overload, AFib with RVR briefly requiring BiPAP support for respiratory effort and not for hypercapnia.? He was diuressed with good effect and ultimately taking off bid Acute respiratory failure with hypoxia due to heart failure--acute respiratory failure has resolved. decompensated acute on chronic systolic heart failure EF 15%, required IV diuresis in ICU bid, now just once daily oral Bumex 1mg Drowsiness 12.20 --ABG was fine, he is more alert, avoid sedative medications Resistant E. coli UTI--Meropenem since 04/10 (D3) Perirectal perforation/cellulitis -? fecal drainage through open perianal wound Persists ? cellulitis resolved. ? no acute issues r/t perforation Urinary retention - prn bladder scan, straight cath PRN bladder scan seems fine dawit on CKD3,hyponatremia hyperkalemia ,AGMA,low bicarb-resolved with bicarb drip. has some diarrhae -at baseline -follow renals/divalents ?hyponatremia resolved? dawit improvin continue to moniter generalized pain continue Tylenol and prn oxycodone recommend out of bed to chair Permanent AFIB-- rate controlled, continue, continue Xarelto N/V abd discomfort 03/29, resolved, CT no acute finding routine labs CBC, chem unremarkable' Agitation, hallucinations at time, consider zyprexa or seroquel PRN has agitation last night ,also ?generalised pain unlcear added oxycodone ,tylenol ,trazodone for sleep psych eval noted. ?DVT prophylaxis Rivaroxaban DNR/DNI need for inaptient: awaiting placement Time Spent With Patient Time: Total time managing care of this patient today ____ minutes. Progress Note: Quality Stroke Does the patient have a stroke diagnosis?: No
[2022-04-12 11:01] VITALS: BP 117/85; PULSE 80; RESP 16; TEMP 36; O2SAT 95
[2022-04-12 15:35] VITALS: BP 125/81; PULSE 104; RESP 19; TEMP 36.7; O2SAT 94
[2022-04-12] MEDS: Rivaroxaban 15 MG TABLET PO (17:31)
[2022-04-12 19:44] VITALS: BP 150/90; PULSE 83; RESP 19; TEMP 36.6; O2SAT 97
[2022-04-12] MEDS: Melatonin 3 MG TABLET PO (20:43)
[2022-04-12 23:55] VITALS: BP 122/88; PULSE 84; RESP 20; TEMP 36.6; O2SAT 95
[2022-04-13] MEDS: oxyCODONE HCl Immed Release 5 MG TABLET PO (00:04)
[2022-04-13 03:22] VITALS: BP 116/79; PULSE 95; RESP 16; TEMP 36.5; O2SAT 94
[2022-04-13] MEDS: Omeprazole 20 MG CAPSULE.DR PO (05:50)
[2022-04-13 07:44] VITALS: BP 122/82; PULSE 71; RESP 20; TEMP 36.3; O2SAT 93
[2022-04-13] MEDS: Folic Acid 1 MG TABLET PO (09:05)
[2022-04-13] MEDS: Digoxin 0.125 MG TABLET PO (09:05)
[2022-04-13] MEDS: 0.9 % Sodium Chloride Flush 3 ML SYRINGE IVFLUSH ×3 (09:05→20:53)
[2022-04-13] MEDS: Tamsulosin HCL 0.4 MG CAPSULE PO (09:06)
[2022-04-13] MEDS: Bumetanide 1 MG TABLET PO (09:06)
[2022-04-13] MEDS: carvediloL 6.25 MG TABLET PO ×2 (09:06→20:31)
[2022-04-13] MEDS: Nystatin Powder 15 GM BOTTLE 1 APPL TOPICAL ×2 (09:10→20:49)
--- NOTE | 2022-04-13 10:12 | PM.PNNEP ---
Subjective Subjective Date of Service: 04/13/22 Interval history: Seen in f/u for post ICU care for acute hypoxic respirator failure due to fluid overlood, chf, and afib with rvr and required bipap briefly and was transfer the next day. he was very lethargic yesterday but is much better today, more awake and talking Physical Exam Vital Signs: Vital Signs: Last Vital Signs Temp 97.4 F 04/13/22 07:44 Pulse 71 04/13/22 07:44 Resp 20 04/13/22 07:44 BP 122/82 04/13/22 07:44 Pulse Ox 93 04/13/22 07:44 O2 Del Method 04/13/22 07:44 O2 Flow Rate 2 04/07/22 03:58 FiO2 30 04/10/22 07:00 Oxygen Flow Rate 30 04/10/22 05:25 BMI result Body Mass Index 26.4 Const: Other: General? resting comfortably in no acute distress.? Neck supple no JVD. CVS? regular rate rhythm, Respiratory lungs clear to auscultation, no respiratory distress, no wheeze, no rhonchi. Gastrointestinal abdomen soft, nontender, bowel sounds audible, no guarding , no rigidity. Extremities no? edema. Rectal examination open wound perianal area with drainage of soft stool, mild surrounding? erythema Neuro nonfocal, moving all 4 extremity, speech clear. Skin no rash Psych appropriate affect General: cooperative, comfortable, no acute distress, well developed, alert, awake and lethargic Nutritional Appearance: well nourished Orientation/consciousness: patient oriented x3 and lethargic Limitations: no limitations and altered mental status HEENT: Other: Unremarkable Head: Yes normal to inspection, Yes normocephalic and Yes atraumatic Face and sinus: Yes normal facial exam Mouth: Normal oral and palatal mucosa present Teeth and gingiva: dentition normal Eyes: General: appearance normal, both eyes and all related structures Sclerae: sclerae normal Pupils: Equal, round and reactive pupils present EOM: EOMs intact bilaterally Neck: Neck: Yes normal visual inspection, Yes no lymphadenopathy, Yes trachea midline and Yes supple Chest: Chest palpation & inspection: normal inspection of the chest Resp: Other: Clear to auscultation bilaterally no rales rhonchi or wheezes Effort & Inspection: normal respiratory effort and no respiratory distress Auscultation: clear to auscultation bilaterally and crackles ( bibasilar) Cardio: Other: No S4; positive S1-S2; no S3 murmurs rubs or gallops Palpation: normal PMI Rate: regular rate and tachycardic Rhythm: regular rhythm and abnormal rhythm irregularly irregular Heart sounds: S1 normal heart sound present, S2 normal heart sound present, no gallops, no murmurs and no rubs GI: Other: rectal wound with stool c/w fistulous connection, traumatic Inspection: Yes normal to inspection Palpation (GI): Soft to palpation, not firm, nontender, no guarding, not rigid, Pulsatile mass present and Other GI palpation findings present ( Nontender) Percussion: Yes normal to percussion Auscultation: normal bowel sounds : Other: open wound perianal area with drainage of soft stool, mild surrounding redness General: Yes no CVA tenderness Back/Spine/Pelvis: Other: Granulating wound with fecalent discharge Back: no CVA tenderness Skin: Other: Warm, dry, no rash, normal color General skin exam: no rashes or lesions noted Neuro: Other: patient somnolent but arousable, unable to assess neuro exam General: patient oriented x3 and moves all extremities Cranial nerves: Yes Equal, round and reactive pupils present Extrem: Other: No edema bilaterally General: Yes normal to inspection, Yes no clubbing, cyanosis or edema, Yes no pedal edema, No clubbing, No cyanosis and Yes edema ( 1+ bilateral) Psych: Appearance: grossly normal Mental Status: mental status grossly abnormal Objective Data Labs CBC & Chem 7: 04/11/22 03:34 04/11/22 03:34 Microbiology Microbiology Results: Microbiology 04/08/22 17:15 Urine Catheterized - Garcia Catheter Urine Culture - Final Escherichia coli 02/17/22 14:04 Blood - Venous Blood Culture - Final No growth after 5 days. 02/17/22 13:05 Blood - Venous Blood Culture - Final No growth after 5 days. 02/17/22 15:33 Urine clean catch - Urine bowers top Urine Culture - Final Klebsiella pneumoniae Procedures Date of Service Date of Service: 04/13/22 Assessment & Plan Assessment and plan (1) Acute on chronic congestive heart failure: Status: Acute (2) Cardiomyopathy: Status: Acute (3) DAWIT (acute kidney injury): Status: Acute Assessment and Plan: resolving DAWIT we can continue diuresis as necessary for the heart failure Time Spent With Patient Time: Total time managing care of this patient today ____ minutes. Progress Note: Quality Stroke Does the patient have a stroke diagnosis?: No
[2022-04-13 11:07] VITALS: BP 123/74; PULSE 74; RESP 20; TEMP 36.7; O2SAT 94
--- NOTE | 2022-04-13 13:10 | HO.PM.IMPN ---
Subjective Subjective Date of Service: 04/13/22 Interval History: the patient was seen and evaluated this morning Laying in bed, feels comfortableOverall Still has catheter in place ESBL E coli in urine on antibiotic No reported other overnight events. Systemic review: No fever, chills or weakness No chest pain, palpitation No shortness of breath or coughing No abdominal pain, nausea or vomiting No urinary symptoms No reported rash Physical Exam Vital Signs: Vital Signs: Last Vital Signs Temp 98.1 F 04/13/22 11:07 Pulse 74 04/13/22 11:07 Resp 20 04/13/22 11:07 BP 123/74 04/13/22 11:07 Pulse Ox 94 04/13/22 11:07 O2 Del Method 04/13/22 11:07 O2 Flow Rate 2 04/07/22 03:58 FiO2 30 04/10/22 07:00 Oxygen Flow Rate 30 04/10/22 05:25 BMI result Body Mass Index 26.4 Const: Other: Constitutional : Awake, interactive, not in distress Neck : Normal inspection, Supple Cardiovascular : RRR, no JVP, no lower extremity edema Respiratory : good bilateral air entry, no crackles, wheezes or rhonchi Gastrointestinal: soft, lax, Normal bowel sounds, Non tender Skin : Warm, Dry Neurological : Alert & oriented to self and place, No focal deficit Objective Data Active Medications Acetaminophen (Acetaminophen 325 Mg Tablet) 650 mg PO Q6H PRN PRN Reason: Pain, Mild (Pain Scale 1-3) Last Admin: 04/12/22 20:44 Dose: 650 mg Documented By: HIPOLITO Benzonatate (Benzonatate 100 Mg Capsule) 100 mg PO TID PRN PRN Reason: Cough Last Admin: 02/22/22 16:03 Dose: 100 mg Documented By: BOGDAN Bumetanide (Bumetanide 1 Mg Tablet) 1 mg PO DAILY [facility]; Protocol Last Admin: 04/13/22 09:06 Dose: 1 mg Documented By: CHARLIE Carvedilol (Carvedilol 6.25 Mg Tablet) 6.25 mg PO BID [facility]; Protocol Last Admin: 04/13/22 09:06 Dose: 6.25 mg Documented By: CHARLIE Digoxin (Digoxin 0.125 Mg Tablet) 0.125 mg PO DAILY [facility] Last Admin: 04/13/22 09:05 Dose: 0.125 mg Documented By: CHARLIE Docusate Sodium (Docusate Sodium 100 Mg Capsule) 100 mg PO BEDTIME PRN PRN Reason: Constipation Folic Acid (Folic Acid 1 Mg Tablet) 1 mg PO DAILY [facility] Last Admin: 04/13/22 09:05 Dose: 1 mg Documented By: CHARLIE Meropenem 1 gm/ Sodium (Chloride) 100 mls @ 200 mls/hr IV Q12H [facility] Stop: 04/16/22 20:00 Melatonin (Melatonin 3 Mg Tablet) 3 mg PO BEDTIME PRN PRN Reason: Insomnia Last Admin: 04/12/22 20:43 Dose: 3 mg Documented By: HIPOLITO Nystatin (Nystatin Powder 15 Gm Bottle) 1 appl TOPICAL TID [facility]; Protocol Last Admin: 04/13/22 09:10 Dose: 1 appl Documented By: CHARLIE Omeprazole (Omeprazole 20 Mg Capsule.Dr) 20 mg PO DAILY@0630 [facility] Last Admin: 04/13/22 05:50 Dose: 20 mg Documented By: HIPOLITO Ondansetron HCl (Ondansetron Hcl 4 Mg/2 Ml Vial) 4 mg IVPUSH Q8H PRN PRN Reason: Nausea and Vomiting Last Admin: 04/11/22 00:12 Dose: 4 mg Documented By: FARIBA Pharmacy Consult (Consult Rx Perform Med Rec) 1 each MISCELLANE ONCE PRN PRN Reason: Consult order Rivaroxaban (Rivaroxaban 15 Mg Tablet) 15 mg PO DAILY@1700 [facility] Last Admin: 04/12/22 17:31 Dose: 15 mg Documented By: ANNEL Sodium Chloride (0.9 % Sodium Chloride Flush 3 Ml Syringe) 3 ml IVFLUSH QSHIFT [facility] Last Admin: 04/13/22 09:05 Dose: 3 ml Documented By: CHARLIE Tamsulosin HCl (Tamsulosin Hcl 0.4 Mg Capsule) 0.4 mg PO DAILY [facility] Last Admin: 04/13/22 09:06 Dose: 0.4 mg Documented By: CHARLIE Labs CBC & Chem 7: 04/11/22 03:34 04/11/22 03:34 Assessment and Plan (1) Acute on chronic congestive heart failure: Status: Acute (2) Pulmonary edema: Status: Acute (3) High anion gap metabolic acidosis: Status: Acute (4) DAWIT (acute kidney injury): Status: Acute Plan 77yo M with hx chronic HFrEF, AF s/p PPM 2019 AC on rivaroxaban, CKD3, unspecified dementia, brought in after falling in the [place] while intoxicated and developing an open anal wound with fecal drainage admitted for perirectal perforation/cellulitis. He was transferred to intensive care unit overnight of 04/09 for acute hypoxia with pulmonary edema secondary to increased fluid overload, AFib with RVR briefly requiring BiPAP support for respiratory effort and not for hypercapnia.? He was diuressed with good effect and ultimately taking off bid Acute respiratory failure with hypoxia due to heart failure resolved. decompensated acute on chronic systolic heart failure EF 15%, required IV diuresis in ICU, now p.o. daily Bumex 1mg Drowsiness resolvedABG was fine, he is more alert, avoid sedative medications Resistant E. coli UTI Meropenem since 04/10 (D4/) Perirectal perforation/cellulitis fecal drainage through open perianal wound Persists, cellulitis resolved. ? no acute issues r/t perforation Urinary retention prn bladder scan, straight cath PRN bladder scan seems fine dawit on CKD3,hyponatremia hyperkalemia ,AGMA,low bicarb resolved with bicarb drip. follow BMP continue to moniter generalized pain continue Tylenol and prn oxycodone recommend out of bed to chair Permanent AFIB rate controlled, continue, continue Xarelto Agitation, hallucinations seems to be doing much better, Hospital delerium ? consider zyprexa or seroquel PRN added oxycodone ,tylenol ,trazodone for sleep psych eval noted. ?DVT prophylaxis Rivaroxaban DNR/DNI need for inaptient: awaiting placement Time Spent With Patient Time: Total time managing care of this patient today ____ minutes. Quality Stroke Does the patient have a stroke diagnosis?: No VTE Prior VTE?: No VTE Risk Level:: Medical - moderate - high VTE Device Contraindication: N/A - Device Ordered VTE Drug Contraindication: Treatment Not Indicated
[2022-04-13 14:59] VITALS: BP 109/71; PULSE 127; RESP 18; TEMP 36.3; O2SAT 94
[2022-04-13] MEDS: Acetaminophen 325 MG TABLET 650 MG PO (16:24)
[2022-04-13] MEDS: Rivaroxaban 15 MG TABLET PO (16:24)
[2022-04-13 19:04] VITALS: BP 134/93; PULSE 71; RESP 18; TEMP 36.6; O2SAT 94
[2022-04-13] MEDS: Melatonin 3 MG TABLET PO (20:33)
[2022-04-13 23:03] VITALS: BP 126/80; PULSE 70; RESP 18; TEMP 36.1; O2SAT 94
[2022-04-14 04:00] VITALS: BP 122/77; PULSE 70; RESP 16; TEMP 36.1; O2SAT 95
[2022-04-14] MEDS: Omeprazole 20 MG CAPSULE.DR PO (06:27)
[2022-04-14 06:50] LABS: Anion Gap 12 (12-20); Blood Urea Nitrogen 26 mg/dL (9-16); Calcium 8.5 mg/dL (8.4-10.2); Carbon Dioxide 28 mmol/L (22-29); Chloride 99 mmol/L (96-108); Estimated Glomerular Filt Rate 60; Glucose Random 93 mg/dL (60-115); Potassium 3.9 mmol/L (3.3-5.1); Sodium 135 mmol/L (135-145)
[2022-04-14 07:41] VITALS: BP 130/89; PULSE 79; RESP 18; TEMP 36.4; O2SAT 95
[2022-04-14] MEDS: Folic Acid 1 MG TABLET PO (08:54)
[2022-04-14] MEDS: Tamsulosin HCL 0.4 MG CAPSULE 0.8 MG PO (08:54)
[2022-04-14] MEDS: Digoxin 0.125 MG TABLET PO (08:54)
[2022-04-14] MEDS: carvediloL 6.25 MG TABLET PO ×2 (08:54→21:52)
[2022-04-14] MEDS: Bumetanide 1 MG TABLET PO (08:54)
[2022-04-14] MEDS: 0.9 % Sodium Chloride Flush 3 ML SYRINGE IVFLUSH ×3 (08:55→21:52)
[2022-04-14] MEDS: Acetaminophen 325 MG TABLET 650 MG PO (08:56)
[2022-04-14] MEDS: Nystatin Powder 15 GM BOTTLE 1 APPL TOPICAL ×3 (08:59→21:52)
--- NOTE | 2022-04-14 10:30 | MHC.CLN ---
F/U PO INTAKE 50% DIET RX: 2GM NA, LOW K+-APPROPRIATE PT RECEIVING ENSURE BID TO INCREASE KCALS AND PROMOTE WOUND HEALING SUPP PROVIDES 700KCALS, 40G PROTEIN NOTED PRESSURE CHANGED TO FISTULA TODAY CONTINUE TO MONITOR PO INTAKE CLOSELY AND ENCOURAGE SUPPLEMENT
[2022-04-14 11:20] VITALS: BP 107/79; PULSE 87; RESP 18; TEMP 36.4; O2SAT 95
--- NOTE | 2022-04-14 12:21 | HO.PM.IMPN ---
Subjective Subjective Date of Service: 04/14/22 Interval History: the patient was seen and evaluated this morning Laying in bed, feels comfortableOverall Still has catheter in place ESBL E coli in urine on antibiotic No reported other overnight events. Systemic review: No fever, chills or weakness No chest pain, palpitation No shortness of breath or coughing No abdominal pain, nausea or vomiting No urinary symptoms No reported rash Physical Exam Vital Signs: Vital Signs: Last Vital Signs Temp 97.5 F 04/14/22 11:20 Pulse 87 04/14/22 11:20 Resp 18 04/14/22 11:20 BP 107/79 04/14/22 11:20 Pulse Ox 95 04/14/22 11:20 O2 Del Method 04/14/22 11:20 O2 Flow Rate 2 04/07/22 03:58 FiO2 30 04/10/22 07:00 Oxygen Flow Rate 30 04/10/22 05:25 BMI result Body Mass Index 26.4 Const: Other: Constitutional : Awake, interactive, not in distress Neck : Normal inspection, Supple Cardiovascular : RRR, no JVP, no lower extremity edema Respiratory : good bilateral air entry, no crackles, wheezes or rhonchi Gastrointestinal: soft, lax, Normal bowel sounds, Non tender Skin : Warm, Dry Neurological : Alert & oriented to self and place, No focal deficit Objective Data Active Medications Acetaminophen (Acetaminophen 325 Mg Tablet) 650 mg PO Q6H PRN PRN Reason: Pain, Mild (Pain Scale 1-3) Last Admin: 04/14/22 08:56 Dose: 650 mg Documented By: CHARLIE Benzonatate (Benzonatate 100 Mg Capsule) 100 mg PO TID PRN PRN Reason: Cough Last Admin: 02/22/22 16:03 Dose: 100 mg Documented By: BOGDAN Bumetanide (Bumetanide 1 Mg Tablet) 1 mg PO DAILY [facility]; Protocol Last Admin: 04/14/22 08:54 Dose: 1 mg Documented By: CHARLIE Carvedilol (Carvedilol 6.25 Mg Tablet) 6.25 mg PO BID [facility]; Protocol Last Admin: 04/14/22 08:54 Dose: 6.25 mg Documented By: CHARLIE Digoxin (Digoxin 0.125 Mg Tablet) 0.125 mg PO DAILY [facility] Last Admin: 04/14/22 08:54 Dose: 0.125 mg Documented By: CHARLIE Docusate Sodium (Docusate Sodium 100 Mg Capsule) 100 mg PO BEDTIME PRN PRN Reason: Constipation Folic Acid (Folic Acid 1 Mg Tablet) 1 mg PO DAILY [facility] Last Admin: 04/14/22 08:54 Dose: 1 mg Documented By: CHARLIE Meropenem 1 gm/ Sodium (Chloride) 100 mls @ 200 mls/hr IV Q12H [facility] Stop: 04/16/22 20:00 Last Infusion: 04/14/22 07:49 Dose: 0 mls/hr Documented By: CHARLIE Melatonin (Melatonin 3 Mg Tablet) 3 mg PO BEDTIME PRN PRN Reason: Insomnia Last Admin: 04/13/22 20:33 Dose: 3 mg Documented By: HIPOLITO Nystatin (Nystatin Powder 15 Gm Bottle) 1 appl TOPICAL TID [facility]; Protocol Last Admin: 04/14/22 08:59 Dose: 1 appl Documented By: CHARLIE Omeprazole (Omeprazole 20 Mg Capsule.) 20 mg PO DAILY@0630 [facility] Last Admin: 04/14/22 06:27 Dose: 20 mg Documented By: HIPOLITO Ondansetron HCl (Ondansetron Hcl 4 Mg/2 Ml Vial) 4 mg IVPUSH Q8H PRN PRN Reason: Nausea and Vomiting Last Admin: 04/11/22 00:12 Dose: 4 mg Documented By: FARIBA Pharmacy Consult (Consult Rx Perform Med Rec) 1 each MISCELLANE ONCE PRN PRN Reason: Consult order Rivaroxaban (Rivaroxaban 15 Mg Tablet) 15 mg PO DAILY@1700 [facility] Last Admin: 04/13/22 16:24 Dose: 15 mg Documented By: CHARLIE Sodium Chloride (0.9 % Sodium Chloride Flush 3 Ml Syringe) 3 ml IVFLUSH QSHIFT [facility] Last Admin: 04/14/22 08:55 Dose: 3 ml Documented By: CHARLIE Tamsulosin HCl (Tamsulosin Hcl 0.4 Mg Capsule) 0.8 mg PO DAILY [facility] Last Admin: 04/14/22 08:54 Dose: 0.8 mg Documented By: CHARLIE Labs CBC & Chem 7: 04/11/22 03:34 04/14/22 05:45 Labs: Laboratory Results - last 24 hr 04/14/22 05:45 Anion Gap 12 Estim Creat Clear Calc 54.0 Estimated GFR 60 Random Glucose 93 Calcium 8.5 D Assessment and Plan (1) Acute on chronic congestive heart failure: Status: Acute (2) Infection due to ESBL-producing Escherichia coli: Status: Acute Plan 77yo M with hx chronic HFrEF, AF s/p PPM 2019 AC on rivaroxaban, CKD3, unspecified dementia, brought in after falling in the [place] while intoxicated and developing an open anal wound with fecal drainage admitted for perirectal perforation/cellulitis. He was transferred to intensive care unit overnight of 04/09 for acute hypoxia with pulmonary edema secondary to increased fluid overload, AFib with RVR briefly requiring BiPAP support for respiratory effort and not for hypercapnia.? He was diuressed with good effect and ultimately taking off bid Resistant E. coli UTI Meropenem since 04/10 (D5/10) Acute respiratory failure with hypoxia due to heart failure resolved. decompensated acute on chronic systolic heart failure EF 15%, required IV diuresis in ICU, p.o. daily Bumex 1mg Drowsiness resolved ABG was fine, he is more alert, avoid sedative medications Perirectal perforation/cellulitis fecal drainage through open perianal wound Persists, cellulitis resolved. ? no acute issues r/t perforation Urinary retention prn bladder scan, straight cath PRN bladder scan seems fine freddie on CKD3,hyponatremia hyperkalemia ,AGMA,low bicarb resolved with bicarb drip. follow BMP continue to moniter generalized pain continue Tylenol and prn oxycodone recommend out of bed to chair Permanent AFIB rate controlled, continue, continue Xarelto Agitation, hallucinations seems to be doing much better, Hospital delerium ? consider zyprexa or seroquel PRN added oxycodone ,tylenol ,trazodone for sleep psych eval noted. ?DVT prophylaxis Rivaroxaban DNR/DNI need for inaptient: Continue treatment for ESBL E coli to IV antibiotic pending safe discharge plan Time Spent With Patient Time: Total time managing care of this patient today ____ minutes. Quality Stroke Does the patient have a stroke diagnosis?: No VTE Prior VTE?: No VTE Risk Level:: Medical - moderate - high VTE Device Contraindication: N/A - Device Ordered VTE Drug Contraindication: Treatment Not Indicated
--- NOTE | 2022-04-14 14:30 | MHC.CM.PN ---
LTC Medicaid in progress. DP LTC via S.
[2022-04-14 15:12] VITALS: BP 125/87; PULSE 63; RESP 16; TEMP 36.1; O2SAT 94
[2022-04-14] MEDS: Rivaroxaban 15 MG TABLET PO (17:42)
[2022-04-14 20:00] VITALS: BP 123/91; PULSE 73; RESP 18; TEMP 36.6; O2SAT 95
--- NOTE | 2022-04-14 20:04 | PM.PNNEP ---
Subjective Subjective Date of Service: 04/14/22 Interval history: the patient was seen and evaluated this morning comfortable in bed Still has catheter in place ESBL E coli in urine on antibiotic No reported other overnight events. Physical Exam Vital Signs: Vital Signs: Last Vital Signs Temp 96.9 F 04/14/22 15:12 Pulse 63 04/14/22 15:12 Resp 16 04/14/22 15:12 BP 125/87 04/14/22 15:12 Pulse Ox 94 04/14/22 15:12 O2 Del Method 04/14/22 15:12 O2 Flow Rate 2 04/07/22 03:58 FiO2 30 04/10/22 07:00 Oxygen Flow Rate 30 04/10/22 05:25 BMI result Body Mass Index 26.4 Const: Other: Constitutional : Awake, interactive, not in distress Neck : Normal inspection, Supple Cardiovascular : RRR, no JVP, no lower extremity edema Respiratory : good bilateral air entry, no crackles, wheezes or rhonchi Gastrointestinal: soft, lax, Normal bowel sounds, Non tender Skin : Warm, Dry Neurological : Alert & oriented to self and place, No focal deficit Objective Data Labs CBC & Chem 7: 04/11/22 03:34 04/14/22 05:45 Labs: Laboratory Results - last 24 hr 04/14/22 05:45 Sodium 135 Potassium 3.9 Chloride 99 Carbon Dioxide 28 Anion Gap 12 BUN 26 H Creatinine 1.18 Estim Creat Clear Calc 54.0 Estimated GFR 60 Random Glucose 93 Calcium 8.5 D Microbiology Microbiology Results: Microbiology 04/08/22 17:15 Urine Catheterized - Garcia Catheter Urine Culture - Final Escherichia coli 02/17/22 14:04 Blood - Venous Blood Culture - Final No growth after 5 days. 02/17/22 13:05 Blood - Venous Blood Culture - Final No growth after 5 days. 02/17/22 15:33 Urine clean catch - Urine bowers top Urine Culture - Final Klebsiella pneumoniae Procedures Date of Service Date of Service: 04/14/22 Assessment & Plan Assessment and plan (1) DAWIT (acute kidney injury): Status: Acute Plan 77yo M with hx chronic HFrEF, AF s/p PPM 2019 AC on rivaroxaban, CKD3, unspecified dementia, brought in after falling [place] the [place] while intoxicated and developing an open anal wound with fecal drainage admitted for perirectal perforation/cellulitis. He was transferred to intensive care unit overnight of 04/09 for acute hypoxia with pulmonary edema secondary to increased fluid overload,? AFib with RVR briefly requiring BiPAP support for respiratory effort and not for hypercapnia.? DAWIT _ resolving / CKD 3 Follow BMP ? Resistant E. coli UTI on Meropenem since 04/10 (D5/10) Acute respiratory failure with hypoxia due to heart failure/ EF 15 % resolved. On Bumex - Continue 1 mg daily Urinary retention prn bladder scan, straight cath PRN bladder scan seems fine. On Flomax DNR/DNI Time Spent With Patient Time: Total time managing care of this patient today ____ minutes. Progress Note: Quality Stroke Does the patient have a stroke diagnosis?: No
[2022-04-15] VITALS: BP 140/91; PULSE 81; RESP 18; TEMP 36.1; O2SAT 97
[2022-04-15 04:00] VITALS: BP 129/79; PULSE 75; RESP 18; TEMP 36.2; O2SAT 95
[2022-04-15] MEDS: Omeprazole 20 MG CAPSULE.DR PO (05:42)
[2022-04-15 07:31] VITALS: BP 142/88; PULSE 65; RESP 16; TEMP 36.9; O2SAT 95
[2022-04-15] MEDS: 0.9 % Sodium Chloride Flush 3 ML SYRINGE IVFLUSH ×3 (09:42→21:54)
[2022-04-15] MEDS: Folic Acid 1 MG TABLET PO (09:43)
[2022-04-15] MEDS: Acetaminophen 325 MG TABLET 650 MG PO (09:46)
[2022-04-15] MEDS: Bumetanide 1 MG TABLET PO (09:48)
[2022-04-15] MEDS: Digoxin 0.125 MG TABLET PO (09:48)
[2022-04-15] MEDS: Tamsulosin HCL 0.4 MG CAPSULE 0.8 MG PO (09:48)
[2022-04-15] MEDS: Nystatin Powder 15 GM BOTTLE 1 APPL TOPICAL ×3 (09:48→21:54)
[2022-04-15] MEDS: carvediloL 6.25 MG TABLET PO ×2 (09:49→21:52)
--- NOTE | 2022-04-15 11:10 | HO.PM.IMPN ---
Subjective Subjective Date of Service: 04/15/22 Interval History: the patient was seen and evaluated this morning Laying in bed, feels comfortable Overall ESBL E coli in urine on antibiotic No reported other overnight events. Systemic review: No fever, chills or weakness No chest pain, palpitation No shortness of breath or coughing No abdominal pain, nausea or vomiting No urinary symptoms No reported rash Physical Exam Vital Signs: Vital Signs: Last Vital Signs Temp 98.5 F 04/15/22 07:31 Pulse 65 04/15/22 07:31 Resp 16 04/15/22 07:31 BP 142/88 H 04/15/22 07:31 Pulse Ox 95 04/15/22 07:31 O2 Del Method 04/15/22 07:31 O2 Flow Rate 2 04/07/22 03:58 FiO2 30 04/10/22 07:00 Oxygen Flow Rate 30 04/10/22 05:25 BMI result Body Mass Index 26.4 Const: Other: Constitutional : Awake, interactive, not in distress Neck : Normal inspection, Supple Cardiovascular : RRR, no JVP, no lower extremity edema Respiratory : good bilateral air entry, no crackles, wheezes or rhonchi Gastrointestinal: soft, lax, Normal bowel sounds, Non tender Skin : Warm, Dry Neurological : Alert & oriented to self and place, No focal deficit Objective Data Active Medications Acetaminophen (Acetaminophen 325 Mg Tablet) 650 mg PO Q6H PRN PRN Reason: Pain, Mild (Pain Scale 1-3) Last Admin: 04/15/22 09:46 Dose: 650 mg Documented By: CODIE Benzonatate (Benzonatate 100 Mg Capsule) 100 mg PO TID PRN PRN Reason: Cough Last Admin: 02/22/22 16:03 Dose: 100 mg Documented By: BOGDAN Bumetanide (Bumetanide 1 Mg Tablet) 1 mg PO DAILY [facility]; Protocol Last Admin: 04/15/22 09:48 Dose: 1 mg Documented By: CODIE Carvedilol (Carvedilol 6.25 Mg Tablet) 6.25 mg PO BID [facility]; Protocol Last Admin: 04/15/22 09:49 Dose: 6.25 mg Documented By: CODIE Digoxin (Digoxin 0.125 Mg Tablet) 0.125 mg PO DAILY [facility] Last Admin: 04/15/22 09:48 Dose: 0.125 mg Documented By: CODIE Docusate Sodium (Docusate Sodium 100 Mg Capsule) 100 mg PO BEDTIME PRN PRN Reason: Constipation Folic Acid (Folic Acid 1 Mg Tablet) 1 mg PO DAILY [facility] Last Admin: 04/15/22 09:43 Dose: 1 mg Documented By: CODIE Meropenem 1 gm/ Sodium (Chloride) 100 mls @ 200 mls/hr IV Q12H [facility] Stop: 04/16/22 20:00 Last Infusion: 04/15/22 06:26 Dose: 0 mls/hr Documented By: BRET Melatonin (Melatonin 3 Mg Tablet) 3 mg PO BEDTIME PRN PRN Reason: Insomnia Last Admin: 04/13/22 20:33 Dose: 3 mg Documented By: HIPOLITO Nystatin (Nystatin Powder 15 Gm Bottle) 1 appl TOPICAL TID [facility]; Protocol Last Admin: 04/15/22 09:48 Dose: 1 appl Documented By: CODIE Omeprazole (Omeprazole 20 Mg Capsule.) 20 mg PO DAILY@0630 [facility] Last Admin: 04/15/22 05:42 Dose: 20 mg Documented By: BRET Ondansetron HCl (Ondansetron Hcl 4 Mg/2 Ml Vial) 4 mg IVPUSH Q8H PRN PRN Reason: Nausea and Vomiting Last Admin: 04/11/22 00:12 Dose: 4 mg Documented By: FARIBA Pharmacy Consult (Consult Rx Perform Med Rec) 1 each MISCELLANE ONCE PRN PRN Reason: Consult order Rivaroxaban (Rivaroxaban 15 Mg Tablet) 15 mg PO DAILY@1700 [facility] Last Admin: 04/14/22 17:42 Dose: 15 mg Documented By: SOLISJULIO Sodium Chloride (0.9 % Sodium Chloride Flush 3 Ml Syringe) 3 ml IVFLUSH QSHIFT [facility] Last Admin: 04/15/22 09:42 Dose: 3 ml Documented By: CODIE Tamsulosin HCl (Tamsulosin Hcl 0.4 Mg Capsule) 0.8 mg PO DAILY [facility] Last Admin: 04/15/22 09:48 Dose: 0.8 mg Documented By: CODIE Labs CBC & Chem 7: 04/11/22 03:34 04/14/22 05:45 Assessment and Plan (1) Infection due to ESBL-producing Escherichia coli: Status: Acute (2) Acute on chronic congestive heart failure: Status: Acute Plan 77yo M with hx chronic HFrEF, AF s/p PPM 2019 AC on rivaroxaban, CKD3, unspecified dementia, brought in after falling in the [place] while intoxicated and developing an open anal wound with fecal drainage admitted for perirectal perforation/cellulitis. He was transferred to intensive care unit overnight of 04/09 for acute hypoxia with pulmonary edema secondary to increased fluid overload, AFib with RVR briefly requiring BiPAP support for respiratory effort and not for hypercapnia.? He was diuressed with good effect and ultimately taking off bid Resistant E. coli UTI Meropenem since 04/10 (D6/10) Acute respiratory failure with hypoxia due to heart failure resolved. decompensated acute on chronic systolic heart failure EF 15%, required IV diuresis in ICU, p.o. daily Bumex 1mg Drowsiness resolved ABG was fine, he is more alert, avoid sedative medications Perirectal perforation/cellulitis fecal drainage through open perianal wound Persists, cellulitis resolved. ? no acute issues r/t perforation Urinary retention prn bladder scan, straight cath PRN bladder scan seems fine freddie on CKD3,hyponatremia hyperkalemia ,AGMA,low bicarb resolved with bicarb drip. follow BMP continue to moniter generalized pain continue Tylenol and prn oxycodone recommend out of bed to chair Permanent AFIB rate controlled, continue, continue Xarelto Agitation, hallucinations seems to be doing much better, Hospital delerium ? consider zyprexa or seroquel PRN added oxycodone ,tylenol ,trazodone for sleep psych eval noted. ?DVT prophylaxis Rivaroxaban DNR/DNI need for inaptient: Continue treatment for ESBL E coli to IV antibiotic pending safe discharge plan Time Spent With Patient Time: Total time managing care of this patient today ____ minutes. Quality Stroke Does the patient have a stroke diagnosis?: No VTE Prior VTE?: No VTE Risk Level:: Medical - moderate - high VTE Device Contraindication: N/A - Device Ordered VTE Drug Contraindication: Treatment Not Indicated
[2022-04-15 12:00] VITALS: BP 135/72; PULSE 73; RESP 17; TEMP 36.6; O2SAT 97
--- NOTE | 2022-04-15 14:31 | PM.PNNEP ---
Subjective Subjective Date of Service: 04/15/22 Interval history: the patient was seen and evaluated this morning Laying in bed, Feels OK Physical Exam Vital Signs: Vital Signs: Last Vital Signs Temp 97.9 F 04/15/22 12:00 Pulse 73 04/15/22 12:00 Resp 17 04/15/22 12:00 BP 135/72 04/15/22 12:00 Pulse Ox 97 04/15/22 12:00 O2 Del Method 04/15/22 12:00 O2 Flow Rate 2 04/07/22 03:58 FiO2 30 04/10/22 07:00 Oxygen Flow Rate 30 04/10/22 05:25 BMI result Body Mass Index 26.4 Const: Other: Constitutional : Awake, interactive, not in distress Neck : Normal inspection, Supple Cardiovascular : RRR, no JVP, no lower extremity edema Respiratory : good bilateral air entry, no crackles, wheezes or rhonchi Gastrointestinal: soft, lax, Normal bowel sounds, Non tender Skin : Warm, Dry Neurological : Alert & oriented to self and place, No focal deficit Objective Data Labs CBC & Chem 7: 04/11/22 03:34 04/14/22 05:45 Microbiology Microbiology Results: Microbiology 04/08/22 17:15 Urine Catheterized - Garcia Catheter Urine Culture - Final Escherichia coli 02/17/22 14:04 Blood - Venous Blood Culture - Final No growth after 5 days. 02/17/22 13:05 Blood - Venous Blood Culture - Final No growth after 5 days. 02/17/22 15:33 Urine clean catch - Urine bowers top Urine Culture - Final Klebsiella pneumoniae Procedures Date of Service Date of Service: 04/15/22 Assessment & Plan Assessment and plan (1) DAWIT (acute kidney injury): Status: Acute Plan 77yo M with hx chronic HFrEF, AF s/p PPM 2019 AC on rivaroxaban, CKD3, unspecified dementia, brought in after falling [place] the [place] while intoxicated and developing an open anal wound with fecal drainage admitted for perirectal perforation/cellulitis. He was transferred to intensive care unit overnight of 04/09 for acute hypoxia with pulmonary edema secondary to increased fluid overload,? AFib with RVR briefly requiring BiPAP support for respiratory effort and not for hypercapnia.? DAWIT _ resolving / CKD 3 Follow BMP - No new labs ? Resistant E. coli UTI on Meropenem since 04/10 (D5/10) Acute respiratory failure with hypoxia due to heart failure/ EF 15 % resolved. On Bumex - Continue 1 mg daily Urinary retention prn bladder scan, straight cath PRN bladder scan seems fine. On Flomax DNR/DNI Time Spent With Patient Time: Total time managing care of this patient today ____ minutes. Progress Note: Quality Stroke Does the patient have a stroke diagnosis?: No
[2022-04-15 15:05] VITALS: BP 115/77; PULSE 85; RESP 16; TEMP 36.1; O2SAT 95
[2022-04-15] MEDS: Rivaroxaban 15 MG TABLET PO (17:17)
[2022-04-15 20:00] VITALS: BP 120/77; PULSE 72; RESP 18; TEMP 36.3; O2SAT 95
[2022-04-16] VITALS (7 sets, daily range): BP systolic 115–135; BP diastolic 78–93; PULSE 60–87; RESP 18; TEMP 36.2–36.8; O2SAT 92–97
[2022-04-16] MEDS: Omeprazole 20 MG CAPSULE.DR PO (05:36)
[2022-04-16] MEDS: carvediloL 6.25 MG TABLET PO (08:15)
[2022-04-16] MEDS: Tamsulosin HCL 0.4 MG CAPSULE 0.8 MG PO (08:16)
[2022-04-16] MEDS: Folic Acid 1 MG TABLET PO (08:17)
[2022-04-16] MEDS: Digoxin 0.125 MG TABLET PO (08:17)
[2022-04-16] MEDS: 0.9 % Sodium Chloride Flush 3 ML SYRINGE IVFLUSH ×2 (08:17→15:20)
[2022-04-16] MEDS: Acetaminophen 325 MG TABLET 650 MG PO (08:30)
[2022-04-16] MEDS: Nystatin Powder 15 GM BOTTLE 1 APPL TOPICAL ×2 (08:33→15:18)
[2022-04-16 09:53] LABS: Anion Gap 13 (12-20); Blood Urea Nitrogen 22 mg/dL (9-16); Calcium 9.2 mg/dL (8.4-10.2); Carbon Dioxide 31 mmol/L (22-29); Chloride 95 mmol/L (96-108); Creatinine Clr Calc Pharmacy 57.4; Estimated Glomerular Filt Rate > 60; Glucose Random 123 mg/dL (60-115); Magnesium 1.6 mg/dL (1.6-2.6); Potassium 4.2 mmol/L (3.3-5.1); Sodium 135 mmol/L (135-145)
--- NOTE | 2022-04-16 10:00 | PC.NURSE ---
at 0758: pt has a 21 beats of V tach. His VS at the time was T 98.2. HR 80, BP 125/86, O2 sat 85 RA. PT c/o of front chest pain that radiated to both legs. notified. Recheck 0805 HR 64 and 95% for O2sat. Recieved order of Coreg, IV Magnesium, IV Potassium. Stay with pt for 30 min. Recheck 0820 HR 59 and O2 sat 59. Chest pain resolved and pt back to baseline NSR with freq PVC.
--- NOTE | 2022-04-16 11:26 | HO.PM.IMPN ---
Subjective Subjective Date of Service: 04/16/22 Interval History: the patient was seen and evaluated this morning Laying in bed, feels comfortable Overall Had a run of NSVT this morning, asymptomatic No reported other overnight events. Systemic review: No fever, chills or weakness No chest pain, palpitation No shortness of breath or coughing No abdominal pain, nausea or vomiting No urinary symptoms No reported rash Physical Exam Vital Signs: Vital Signs: Last Vital Signs Temp 98.2 F 04/16/22 08:00 Pulse 80 04/16/22 08:00 Resp 18 04/16/22 08:00 BP 125/86 04/16/22 08:00 Pulse Ox 95 04/16/22 08:00 O2 Del Method 04/16/22 08:00 O2 Flow Rate 2 04/07/22 03:58 FiO2 30 04/10/22 07:00 Oxygen Flow Rate 30 04/10/22 05:25 BMI result Body Mass Index 26.4 Const: Other: Constitutional : Awake, interactive, not in distress Neck : Normal inspection, Supple Cardiovascular : RRR, no JVP, no lower extremity edema Respiratory : good bilateral air entry, no crackles, wheezes or rhonchi Gastrointestinal: soft, lax, Normal bowel sounds, Non tender Skin : Warm, Dry Neurological : Alert & oriented to self and place, No focal deficit Objective Data Active Medications Acetaminophen (Acetaminophen 325 Mg Tablet) 650 mg PO Q6H PRN PRN Reason: Pain, Mild (Pain Scale 1-3) Last Admin: 04/16/22 08:30 Dose: 650 mg Documented By: CODIE Benzonatate (Benzonatate 100 Mg Capsule) 100 mg PO TID PRN PRN Reason: Cough Last Admin: 02/22/22 16:03 Dose: 100 mg Documented By: BOGDAN Bumetanide (Bumetanide 1 Mg Tablet) 1 mg PO DAILY [facility]; Protocol Carvedilol (Carvedilol 12.5 Mg Tablet) 12.5 mg PO BID [facility]; Protocol Digoxin (Digoxin 0.125 Mg Tablet) 0.125 mg PO Q2D [facility] Docusate Sodium (Docusate Sodium 100 Mg Capsule) 100 mg PO BEDTIME PRN PRN Reason: Constipation Folic Acid (Folic Acid 1 Mg Tablet) 1 mg PO DAILY [facility] Last Admin: 04/16/22 08:17 Dose: 1 mg Documented By: CODIE Meropenem 1 gm/ Sodium (Chloride) 100 mls @ 200 mls/hr IV Q12H [facility] Stop: 04/16/22 20:00 Last Infusion: 04/16/22 06:23 Dose: 0 mls/hr Documented By: BRET Magnesium Sulfate (Magnesium Sulfate/H2o) 2 gm in 50 mls @ 25 mls/hr IV ONCE ONE Stop: 04/16/22 11:57 Last Admin: 04/16/22 10:50 Dose: 25 mls/hr Documented By: CODIE Magnesium Oxide (Magnesium Oxide 400 Mg Tablet) 400 mg PO DAILY [facility] Melatonin (Melatonin 3 Mg Tablet) 3 mg PO BEDTIME PRN PRN Reason: Insomnia Last Admin: 04/13/22 20:33 Dose: 3 mg Documented By: HIPOLITO Nystatin (Nystatin Powder 15 Gm Bottle) 1 appl TOPICAL TID [facility]; Protocol Last Admin: 04/16/22 08:33 Dose: 1 appl Documented By: CODIE Omeprazole (Omeprazole 20 Mg Capsule.Dr) 20 mg PO DAILY@0630 [facility] Last Admin: 04/16/22 05:36 Dose: 20 mg Documented By: BRET Ondansetron HCl (Ondansetron Hcl 4 Mg/2 Ml Vial) 4 mg IVPUSH Q8H PRN PRN Reason: Nausea and Vomiting Last Admin: 04/11/22 00:12 Dose: 4 mg Documented By: FARIBA Pharmacy Consult (Consult Rx Perform Med Rec) 1 each MISCELLANE ONCE PRN PRN Reason: Consult order Rivaroxaban (Rivaroxaban 15 Mg Tablet) 15 mg PO DAILY@1700 [facility] Last Admin: 04/15/22 17:17 Dose: 15 mg Documented By: CODIE Sodium Chloride (0.9 % Sodium Chloride Flush 3 Ml Syringe) 3 ml IVFLUSH QSHIFT [facility] Last Admin: 04/16/22 08:17 Dose: 3 ml Documented By: CODIE Tamsulosin HCl (Tamsulosin Hcl 0.4 Mg Capsule) 0.8 mg PO DAILY [facility] Last Admin: 04/16/22 08:16 Dose: 0.8 mg Documented By: CODIE Labs CBC & Chem 7: 04/11/22 03:34 04/16/22 08:52 Labs: Laboratory Results - last 24 hr 04/16/22 08:52 Anion Gap 13 Estim Creat Clear Calc 57.4 Estimated GFR > 60 Random Glucose 123 H Calcium 9.2 D Magnesium 1.6 Assessment and Plan (1) Infection due to ESBL-producing Escherichia coli: Status: Acute (2) NSVT (nonsustained ventricular tachycardia): Status: Acute Plan 77yo M with hx chronic HFrEF, AF s/p PPM 2019 AC on rivaroxaban, CKD3, unspecified dementia, brought in after [place] the [place] while intoxicated and developing an open anal wound with fecal drainage admitted for perirectal perforation/cellulitis. He was transferred to intensive care unit overnight of 04/09 for acute hypoxia with pulmonary edema secondary to increased fluid overload, AFib with RVR briefly requiring BiPAP support for respiratory effort and not for hypercapnia.? He was diuressed with good effect and ultimately taking off bid NSVT asymptomatic Electrolytes within normal, magnesium 1.6 Give extra magnesium Change digoxin to every other day Increase carvedilol to 12.5 b.i.d. Keep on telemetry Resistant E. coli UTI Meropenem since 04/10 (D6/10) Acute respiratory failure with hypoxia due to heart failure resolved. decompensated acute on chronic systolic heart failure EF 15%, required IV diuresis in ICU, p.o. daily Bumex 1mg Drowsiness resolved ABG was fine, he is more alert, avoid sedative medications Perirectal perforation/cellulitis fecal drainage through open perianal wound Persists, cellulitis resolved. ? no acute issues r/t perforation Urinary retention prn bladder scan, straight cath PRN bladder scan seems fine freddie on CKD3,hyponatremia hyperkalemia ,AGMA,low bicarb resolved with bicarb drip. follow BMP continue to moniter generalized pain continue Tylenol and prn oxycodone recommend out of bed to chair Permanent AFIB rate controlled, continue, continue Xarelto Agitation, hallucinations seems to be doing much better, Hospital delerium ? consider zyprexa or seroquel PRN added oxycodone ,tylenol ,trazodone for sleep psych eval noted. ?DVT prophylaxis Rivaroxaban DNR/DNI need for inaptient: Continue treatment for ESBL E coli to IV antibiotic pending safe discharge plan Time Spent With Patient Time: Total time managing care of this patient today ____ minutes. Quality Stroke Does the patient have a stroke diagnosis?: No VTE Prior VTE?: No VTE Risk Level:: Medical - moderate - high VTE Device Contraindication: N/A - Device Ordered VTE Drug Contraindication: Treatment Not Indicated
[2022-04-16] MEDS: Rivaroxaban 15 MG TABLET PO (17:33)
[2022-04-16] MEDS: carvediloL 12.5 MG TABLET PO (22:37)
[2022-04-16] MEDS: Melatonin 3 MG TABLET PO (22:37)
[2022-04-17 03:23] VITALS: BP 119/82; PULSE 73; RESP 18; TEMP 36.2; O2SAT 97
[2022-04-17] MEDS: Omeprazole 20 MG CAPSULE.DR PO (06:24)
[2022-04-17 08:00] VITALS: BP 126/81; PULSE 81; RESP 14; TEMP 35.9; O2SAT 93
[2022-04-17] MEDS: 0.9 % Sodium Chloride Flush 3 ML SYRINGE IVFLUSH ×3 (09:22→22:15)
[2022-04-17] MEDS: Bumetanide 1 MG TABLET PO (09:23)
[2022-04-17] MEDS: Tamsulosin HCL 0.4 MG CAPSULE 0.8 MG PO (09:23)
[2022-04-17] MEDS: Magnesium Oxide 400 MG TABLET PO (09:23)
[2022-04-17] MEDS: Nystatin Powder 15 GM BOTTLE 1 APPL TOPICAL ×3 (09:24→22:15)
[2022-04-17] MEDS: Folic Acid 1 MG TABLET PO (09:24)
[2022-04-17] MEDS: carvediloL 12.5 MG TABLET PO ×2 (09:24→22:08)
[2022-04-17] MEDS: Acetaminophen 325 MG TABLET 650 MG PO ×2 (09:24→22:08)
[2022-04-17 11:02] VITALS: BP 118/86; PULSE 74; RESP 12; TEMP 35.9; O2SAT 94
--- NOTE | 2022-04-17 11:22 | HO.PM.IMPN ---
Subjective Subjective Date of Service: 04/17/22 Interval History: the patient was seen and evaluated this morning Laying in bed, feels comfortable Overall short run of NSVT this morning, asymptomatic No reported other overnight events. Systemic review: No fever, chills or weakness No chest pain, palpitation No shortness of breath or coughing No abdominal pain, nausea or vomiting No urinary symptoms No reported rash Physical Exam Vital Signs: Vital Signs: Last Vital Signs Temp 96.7 F L 04/17/22 11:02 Pulse 74 04/17/22 11:02 Resp 12 04/17/22 11:02 BP 118/86 04/17/22 11:02 Pulse Ox 94 04/17/22 11:02 O2 Del Method 04/17/22 11:02 O2 Flow Rate 2 04/07/22 03:58 FiO2 30 04/10/22 07:00 Oxygen Flow Rate 30 04/10/22 05:25 BMI result Body Mass Index 26.4 Const: Other: Constitutional : Awake, interactive, not in distress Neck : Normal inspection, Supple Cardiovascular : RRR, no JVP, no lower extremity edema Respiratory : good bilateral air entry, no crackles, wheezes or rhonchi Gastrointestinal: soft, lax, Normal bowel sounds, Non tender Skin : Warm, Dry Neurological : Alert & oriented to self and place, No focal deficit Objective Data Active Medications Acetaminophen (Acetaminophen 325 Mg Tablet) 650 mg PO Q6H PRN PRN Reason: Pain, Mild (Pain Scale 1-3) Last Admin: 04/17/22 09:24 Dose: 650 mg Documented By: CODIE Benzonatate (Benzonatate 100 Mg Capsule) 100 mg PO TID PRN PRN Reason: Cough Last Admin: 02/22/22 16:03 Dose: 100 mg Documented By: BOGDAN Bumetanide (Bumetanide 1 Mg Tablet) 1 mg PO DAILY [facility]; Protocol Last Admin: 04/17/22 09:23 Dose: 1 mg Documented By: CODIE Carvedilol (Carvedilol 12.5 Mg Tablet) 12.5 mg PO BID [facility]; Protocol Last Admin: 04/17/22 09:24 Dose: 12.5 mg Documented By: CODIE Digoxin (Digoxin 0.125 Mg Tablet) 0.125 mg PO Q2D [facility] Docusate Sodium (Docusate Sodium 100 Mg Capsule) 100 mg PO BEDTIME PRN PRN Reason: Constipation Folic Acid (Folic Acid 1 Mg Tablet) 1 mg PO DAILY [facility] Last Admin: 04/17/22 09:24 Dose: 1 mg Documented By: CODIE Magnesium Oxide (Magnesium Oxide 400 Mg Tablet) 400 mg PO DAILY [facility] Last Admin: 04/17/22 09:23 Dose: 400 mg Documented By: CODIE Melatonin (Melatonin 3 Mg Tablet) 3 mg PO BEDTIME PRN PRN Reason: Insomnia Last Admin: 04/16/22 22:37 Dose: 3 mg Documented By: GUILLERMO Nystatin (Nystatin Powder 15 Gm Bottle) 1 appl TOPICAL TID [facility]; Protocol Last Admin: 04/17/22 09:24 Dose: 1 appl Documented By: CODIE Omeprazole (Omeprazole 20 Mg Capsule.Dr) 20 mg PO DAILY@0630 [facility] Last Admin: 04/17/22 06:24 Dose: 20 mg Documented By: GUILLERMO Ondansetron HCl (Ondansetron Hcl 4 Mg/2 Ml Vial) 4 mg IVPUSH Q8H PRN PRN Reason: Nausea and Vomiting Last Admin: 04/11/22 00:12 Dose: 4 mg Documented By: FARIBA Pharmacy Consult (Consult Rx Perform Med Rec) 1 each MISCELLANE ONCE PRN PRN Reason: Consult order Rivaroxaban (Rivaroxaban 15 Mg Tablet) 15 mg PO DAILY@1700 [facility] Last Admin: 04/16/22 17:33 Dose: 15 mg Documented By: CODIE Sodium Chloride (0.9 % Sodium Chloride Flush 3 Ml Syringe) 3 ml IVFLUSH QSHIFT [facility] Last Admin: 04/17/22 09:22 Dose: 3 ml Documented By: CODIE Tamsulosin HCl (Tamsulosin Hcl 0.4 Mg Capsule) 0.8 mg PO DAILY [facility] Last Admin: 04/17/22 09:23 Dose: 0.8 mg Documented By: CODIE Labs CBC & Chem 7: 04/11/22 03:34 04/16/22 08:52 Assessment and Plan (1) NSVT (nonsustained ventricular tachycardia): Status: Acute (2) Infection due to ESBL-producing Escherichia coli: Status: Acute Plan 77yo M with hx chronic HFrEF, AF s/p PPM 2020 AC on rivaroxaban, CKD3, unspecified dementia, brought in after falling in the [place] while intoxicated and developing an open anal wound with fecal drainage admitted for perirectal perforation/cellulitis. He was transferred to intensive care unit overnight of 04/09 for acute hypoxia with pulmonary edema secondary to increased fluid overload, AFib with RVR briefly requiring BiPAP support for respiratory effort and not for hypercapnia.? He was diuressed with good effect and ultimately taking off bid NSVT asymptomatic 2nd run of 5 beats this morning, had 21 run yesterday daily magnesium Change digoxin to every other day Increase carvedilol to 12.5 b.i.d. Keep on telemetry Resistant E. coli UTI Meropenem since 04/10 () Acute respiratory failure with hypoxia due to heart failure resolved. decompensated acute on chronic systolic heart failure EF 15%, required IV diuresis in ICU, p.o. daily Bumex 1mg Drowsiness resolved ABG was fine, he is more alert, avoid sedative medications Perirectal perforation/cellulitis fecal drainage through open perianal wound Persists, cellulitis resolved. ? no acute issues r/t perforation Urinary retention prn bladder scan, straight cath PRN bladder scan seems fine freddie on CKD3,hyponatremia hyperkalemia ,AGMA,low bicarb resolved with bicarb drip. follow BMP continue to moniter generalized pain continue Tylenol and prn oxycodone recommend out of bed to chair Permanent AFIB rate controlled, continue, continue Xarelto Agitation, hallucinations seems to be doing much better, Hospital delerium ? consider zyprexa or seroquel PRN added oxycodone ,tylenol ,trazodone for sleep psych eval noted. ?DVT prophylaxis Rivaroxaban DNR/DNI need for inaptient: Continue treatment for ESBL E coli to IV antibiotic pending safe discharge plan Time Spent With Patient Time: Total time managing care of this patient today ____ minutes. Quality Stroke Does the patient have a stroke diagnosis?: No VTE Prior VTE?: No VTE Risk Level:: Medical - moderate - high VTE Device Contraindication: N/A - Device Ordered VTE Drug Contraindication: Treatment Not Indicated
[2022-04-17 15:17] VITALS: BP 118/66; PULSE 60; RESP 18; TEMP 36.6; O2SAT 94
[2022-04-17] MEDS: Rivaroxaban 15 MG TABLET PO (17:38)
[2022-04-17 20:00] VITALS: BP 150/85; PULSE 63; RESP 19; TEMP 37; O2SAT 99
[2022-04-17 23:27] VITALS: BP 103/51; PULSE 97; RESP 16; TEMP 36.7; O2SAT 94
[2022-04-18 03:00] VITALS: BP 126/80; PULSE 81; RESP 18; TEMP 36.3; O2SAT 97
[2022-04-18 07:23] VITALS: BP 151/98; PULSE 70; RESP 20; TEMP 36.6; O2SAT 95
[2022-04-18] MEDS: Omeprazole 20 MG CAPSULE.DR PO (07:29)
[2022-04-18] MEDS: Acetaminophen 325 MG TABLET 650 MG PO ×3 (07:32→20:52)
[2022-04-18] MEDS: Folic Acid 1 MG TABLET PO (09:26)
[2022-04-18] MEDS: Tamsulosin HCL 0.4 MG CAPSULE 0.8 MG PO (09:26)
[2022-04-18] MEDS: Magnesium Oxide 400 MG TABLET PO ×2 (09:26→16:32)
[2022-04-18] MEDS: carvediloL 12.5 MG TABLET PO ×2 (09:26→20:52)
[2022-04-18] MEDS: Bumetanide 1 MG TABLET PO (09:26)
[2022-04-18] MEDS: 0.9 % Sodium Chloride Flush 3 ML SYRINGE IVFLUSH ×2 (09:27→14:56)
[2022-04-18 09:34] LABS: Magnesium 1.7 mg/dL (1.6-2.6)
[2022-04-18 09:35] LABS: Anion Gap 12 (12-20); Blood Urea Nitrogen 25 mg/dL (9-16); Calcium 9.1 mg/dL (8.4-10.2); Carbon Dioxide 33 mmol/L (22-29); Chloride 95 mmol/L (96-108); Creatinine Clr Calc Pharmacy 54.9; Estimated Glomerular Filt Rate > 60; Glucose Random 133 mg/dL (60-115); Potassium 4.1 mmol/L (3.3-5.1); Sodium 136 mmol/L (135-145)
[2022-04-18] MEDS: Digoxin 0.125 MG TABLET PO (09:36)
[2022-04-18] MEDS: Nystatin Powder 15 GM BOTTLE 1 APPL TOPICAL ×3 (09:38→20:53)
[2022-04-18 10:52] VITALS: BP 141/99; PULSE 78; RESP 20; TEMP 36.3; O2SAT 97
--- NOTE | 2022-04-18 13:56 | P.PNIM_ITS ---
Subjective Subjective Date of Service: 04/18/22 Interval History: patient was seen and evaluated this morning follow up Resistant E. coli UTI,decompensated? acute on chronic systolic heart failure Review of Systems Denies any nausea vomiting or fever or chills or shortness of breath. Physical Exam Vital Signs: Vital Signs: Last Vital Signs Temp 97.4 F 04/18/22 10:52 Pulse 78 04/18/22 10:52 Resp 20 04/18/22 10:52 BP 141/99 H 04/18/22 10:52 Pulse Ox 97 04/18/22 10:52 O2 Del Method 04/18/22 10:52 O2 Flow Rate 2 04/07/22 03:58 FiO2 30 04/10/22 07:00 Oxygen Flow Rate 30 04/10/22 05:25 BMI result Body Mass Index 26.4 Constitutional : Awake, interactive, not in distress Neck : Normal inspection, Supple Cardiovascular : RRR, no JVP, no lower extremity edema Respiratory : good bilateral air entry,? no crackles, wheezes or rhonchi Gastrointestinal:? soft, lax, Normal bowel sounds, Non tender Skin : Warm, Dry Neurological : Alert & oriented? to self and place, No focal deficit Objective Data Active Medications Acetaminophen (Acetaminophen 325 Mg Tablet) 650 mg PO Q6H PRN PRN Reason: Pain, Mild (Pain Scale 1-3) Last Admin: 04/18/22 07:32 Dose: 650 mg Documented By: GUILLERMO Benzonatate (Benzonatate 100 Mg Capsule) 100 mg PO TID PRN PRN Reason: Cough Last Admin: 02/22/22 16:03 Dose: 100 mg Documented By: BOGDAN Bumetanide (Bumetanide 1 Mg Tablet) 1 mg PO DAILY [facility]; Protocol Last Admin: 04/18/22 09:26 Dose: 1 mg Documented By: BETY Carvedilol (Carvedilol 12.5 Mg Tablet) 12.5 mg PO BID [facility]; Protocol Last Admin: 04/18/22 09:26 Dose: 12.5 mg Documented By: BETY Digoxin (Digoxin 0.125 Mg Tablet) 0.125 mg PO Q2D [facility] Last Admin: 04/18/22 09:36 Dose: 0.125 mg Documented By: BETY Docusate Sodium (Docusate Sodium 100 Mg Capsule) 100 mg PO BEDTIME PRN PRN Reason: Constipation Folic Acid (Folic Acid 1 Mg Tablet) 1 mg PO DAILY [facility] Last Admin: 04/18/22 09:26 Dose: 1 mg Documented By: BETY Meropenem 1 gm/ Sodium (Chloride) 100 mls @ 200 mls/hr IV Q12H [facility] Stop: 04/20/22 21:29 Last Infusion: 04/18/22 10:20 Dose: 0 mls/hr Documented By: BETY Magnesium Oxide (Magnesium Oxide 400 Mg Tablet) 400 mg PO DAILY [facility] Last Admin: 04/18/22 09:26 Dose: 400 mg Documented By: BETY Melatonin (Melatonin 3 Mg Tablet) 3 mg PO BEDTIME PRN PRN Reason: Insomnia Last Admin: 04/16/22 22:37 Dose: 3 mg Documented By: GUILLERMO Nystatin (Nystatin Powder 15 Gm Bottle) 1 appl TOPICAL TID [facility]; Protocol Last Admin: 04/18/22 09:38 Dose: 1 appl Documented By: BETY Omeprazole (Omeprazole 20 Mg Capsule.) 20 mg PO DAILY@0630 [facility] Last Admin: 04/18/22 07:29 Dose: 20 mg Documented By: GUILLERMO Ondansetron HCl (Ondansetron Hcl 4 Mg/2 Ml Vial) 4 mg IVPUSH Q8H PRN PRN Reason: Nausea and Vomiting Last Admin: 04/11/22 00:12 Dose: 4 mg Documented By: FARIBA Pharmacy Consult (Consult Rx Perform Med Rec) 1 each MISCELLANE ONCE PRN PRN Reason: Consult order Rivaroxaban (Rivaroxaban 15 Mg Tablet) 15 mg PO DAILY@1700 [facility] Last Admin: 04/17/22 17:38 Dose: 15 mg Documented By: PHANIKA Sodium Chloride (0.9 % Sodium Chloride Flush 3 Ml Syringe) 3 ml IVFLUSH QSHIFT [facility] Last Admin: 04/18/22 09:27 Dose: 3 ml Documented By: BETY Tamsulosin HCl (Tamsulosin Hcl 0.4 Mg Capsule) 0.8 mg PO DAILY [facility] Last Admin: 04/18/22 09:26 Dose: 0.8 mg Documented By: BETY Labs CBC & Chem 7: 04/11/22 03:34 04/18/22 08:39 Labs: Laboratory Results - last 24 hr 04/18/22 04/18/22 08:39 08:39 Anion Gap 12 Estim Creat Clear Calc 54.9 Estimated GFR > 60 Random Glucose 133 H Calcium 9.1 Magnesium 1.7 Assessment and Plan (1) NSVT (nonsustained ventricular tachycardia): Status: Acute (2) Infection due to ESBL-producing Escherichia coli: Status: Acute Plan 77yo M with hx chronic HFrEF, AF s/p PPM 2019 AC on rivaroxaban, CKD3, unspecified dementia, brought in after falling in the [place] while intoxicated and developing an open anal wound with fecal drainage admitted for perirectal perforation/cellulitis. He was transferred to intensive care unit overnight of 04/09 for acute hypoxia with pulmonary edema secondary to increased fluid overload, AFib with RVR briefly requiring BiPAP support for respiratory effort and not for hypercapnia.? He was diuressed with good effect and ultimately taking off bid NSVT asymptomatic 7 beats this easly morning added magnesium iv and adjusted po also daily magnesium Change digoxin to every other day Increase carvedilol to 12.5 b.i.d. Keep on telemetry Resistant E. coli UTI Meropenem since 04/10 (D7/10) Acute respiratory failure with hypoxia due to heart failure resolved. decompensated acute on chronic systolic heart failure EF 15%, required IV diuresis in ICU, p.o. daily Bumex 1mg Drowsiness resolved ABG was fine, he is more alert, avoid sedative medications Perirectal perforation/cellulitis fecal drainage through open perianal wound Persists, cellulitis resolved. ? no acute issues r/t perforation Urinary retention prn bladder scan, straight cath PRN bladder scan seems fine freddie on CKD3,hyponatremia hyperkalemia ,AGMA,low bicarb resolved with bicarb drip. follow BMP continue to moniter generalized pain continue Tylenol and prn trazodone recommend out of bed to chair Permanent AFIB rate controlled, continue, continue Xarelto Agitation, hallucinations seems to be doing much better, possible Hospital delerium ? consider zyprexa or seroquel PRN avoid seadtive meds. ?DVT prophylaxis Rivaroxaban DNR/DNI need for inaptient: Continue treatment for ESBL E coli to IV antibiotic pending safe discharge plan Time Spent With Patient Time: Total time managing care of this patient today ____ minutes. Quality Stroke Does the patient have a stroke diagnosis?: No VTE Prior VTE?: No VTE Risk Level:: Medical - moderate - high VTE Device Contraindication: N/A - Device Ordered VTE Drug Contraindication: Treatment Not Indicated
--- NOTE | 2022-04-18 14:39 | PM.IDPN ---
Subjective Subjective Date of Service: 04/18/22 Interval History: he has more confusion and urine was checked and showed ESBL Ecoli Critical Care Time (minutes): 15 Objective Data Labs CBC & Chem 7: 04/11/22 03:34 04/18/22 08:39 Labs: Laboratory Results - last 24 hr 04/18/22 04/18/22 08:39 08:39 Sodium 136 Potassium 4.1 Chloride 95 L Carbon Dioxide 33 H Anion Gap 12 BUN 25 H Creatinine 1.16 Estim Creat Clear Calc 54.9 Estimated GFR > 60 Random Glucose 133 H Calcium 9.1 Magnesium 1.7 Microbiology Microbiology Results: Microbiology 04/08/22 17:15 Urine Catheterized - Garcia Catheter Urine Culture - Final Escherichia coli 02/17/22 14:04 Blood - Venous Blood Culture - Final No growth after 5 days. 02/17/22 13:05 Blood - Venous Blood Culture - Final No growth after 5 days. 02/17/22 15:33 Urine clean catch - Urine bowers top Urine Culture - Final Klebsiella pneumoniae Physical Exam Vital Signs: Vital Signs: Last Vital Signs Temp 97.4 F 04/18/22 10:52 Pulse 78 04/18/22 10:52 Resp 20 04/18/22 10:52 BP 141/99 H 04/18/22 10:52 Pulse Ox 97 04/18/22 10:52 O2 Del Method 04/18/22 10:52 O2 Flow Rate 2 04/07/22 03:58 FiO2 30 04/10/22 07:00 Oxygen Flow Rate 30 04/10/22 05:25 BMI result Body Mass Index 26.4 Const: General: cooperative HEENT: Head: Yes normal to inspection Mouth: Normal oral and palatal mucosa present Resp: Effort & Inspection: normal respiratory effort Cardio: Rate: regular rate Rhythm: regular rhythm GI: Palpation (GI): nontender Psych: Affect: Animated affect present Assessment and Plan Assessment and plan (1) Dementia with behavioral disturbance: Status: Acute Plan ESBL in urine without toxicity may have just been incidental finding Can give 10 days Merem but dont check any further urine unless appears septic with fever or other signs of sepsis. Time Spent With Patient Time: Total time managing care of this patient today ____ minutes.
[2022-04-18] MEDS: Magnesium Sulfate/D5W 1 GM/100 ML PIGGYBACK IV (14:50)
[2022-04-18 15:40] VITALS: BP 122/79; PULSE 66; RESP 17; TEMP 36.2; O2SAT 94
[2022-04-18] MEDS: Rivaroxaban 15 MG TABLET PO (16:31)
[2022-04-18 19:06] VITALS: BP 133/76; PULSE 61; RESP 17; TEMP 36.3; O2SAT 97
[2022-04-18 23:29] VITALS: BP 117/92; PULSE 83; RESP 16; TEMP 36.7; O2SAT 95
[2022-04-19 03:16] VITALS: BP 117/83; PULSE 64; RESP 16; TEMP 37.2; O2SAT 95
[2022-04-19] MEDS: 0.9 % Sodium Chloride Flush 3 ML SYRINGE IVFLUSH ×3 (04:26→17:05)
[2022-04-19] MEDS: Omeprazole 20 MG CAPSULE.DR PO (05:52)
[2022-04-19 08:00] VITALS: BP 132/94; PULSE 80; RESP 16; TEMP 37.2; O2SAT 96
[2022-04-19] MEDS: Bumetanide 1 MG TABLET PO (08:39)
[2022-04-19] MEDS: Tamsulosin HCL 0.4 MG CAPSULE 0.8 MG PO (08:39)
[2022-04-19] MEDS: Folic Acid 1 MG TABLET PO (08:39)
[2022-04-19] MEDS: Magnesium Oxide 400 MG TABLET PO ×2 (08:40→17:06)
[2022-04-19] MEDS: carvediloL 12.5 MG TABLET PO ×2 (08:40→22:04)
[2022-04-19] MEDS: Nystatin Powder 15 GM BOTTLE 1 APPL TOPICAL ×3 (08:41→22:13)
[2022-04-19 11:50] VITALS: BP 139/99; PULSE 85; RESP 16; TEMP 36.9; O2SAT 95
--- NOTE | 2022-04-19 13:07 | MHC.CM.PN ---
It was identified today in ROUNDS that Patient is medically cleared for dc. CM checked with [facility] [employer] who states that Patient's LTC [place] that is needed for the recommended LTC was faxed in on 04/03/2022, received, and assigned to a Worker who is on vacation until 04/25/2022. ARNAV has made MD & CM Duct Maker/Mariia aware.
[2022-04-19 15:24] VITALS: BP 114/79; PULSE 66; RESP 18; TEMP 36.7; O2SAT 96
--- NOTE | 2022-04-19 16:59 | HO.PM.IMPN ---
Subjective Subjective Date of Service: 04/19/22 Interval History: follow up Resistant E. coli UTI,decompensated? acute on chronic systolic heart failure Review of Systems Denies any nausea vomiting or fever or chills or shortness of breath. Physical Exam Vital Signs: Vital Signs: Last Vital Signs Temp 98.1 F 04/19/22 15:24 Pulse 66 04/19/22 15:24 Resp 18 04/19/22 15:24 BP 114/79 04/19/22 15:24 Pulse Ox 96 04/19/22 15:24 O2 Del Method 04/19/22 15:24 O2 Flow Rate 2 04/07/22 03:58 FiO2 30 04/10/22 07:00 Oxygen Flow Rate 30 04/10/22 05:25 BMI result Body Mass Index 26.4 Constitutional : Awake, interactive, not in distress Neck : Normal inspection, Supple Cardiovascular : RRR, no JVP, no lower extremity edema Respiratory : good bilateral air entry,? no crackles, wheezes or rhonchi Gastrointestinal:? soft, lax, Normal bowel sounds, Non tender Skin : Warm, Dry Neurological : Alert & oriented? to self and place, No focal defici Objective Data Active Medications Acetaminophen (Acetaminophen 325 Mg Tablet) 650 mg PO Q6H PRN PRN Reason: Pain, Mild (Pain Scale 1-3) Last Admin: 04/18/22 20:52 Dose: 650 mg Documented By: CRISTOFER Benzonatate (Benzonatate 100 Mg Capsule) 100 mg PO TID PRN PRN Reason: Cough Last Admin: 02/22/22 16:03 Dose: 100 mg Documented By: BOGDAN Bumetanide (Bumetanide 1 Mg Tablet) 1 mg PO DAILY [facility]; Protocol Last Admin: 04/19/22 08:39 Dose: 1 mg Documented By: ELY Carvedilol (Carvedilol 12.5 Mg Tablet) 12.5 mg PO BID [facility]; Protocol Last Admin: 04/19/22 08:40 Dose: 12.5 mg Documented By: LEY Digoxin (Digoxin 0.125 Mg Tablet) 0.125 mg PO Q2D [facility] Last Admin: 04/18/22 09:36 Dose: 0.125 mg Documented By: BETY Docusate Sodium (Docusate Sodium 100 Mg Capsule) 100 mg PO BEDTIME PRN PRN Reason: Constipation Folic Acid (Folic Acid 1 Mg Tablet) 1 mg PO DAILY [facility] Last Admin: 04/19/22 08:39 Dose: 1 mg Documented By: ELY Meropenem 1 gm/ Sodium (Chloride) 100 mls @ 200 mls/hr IV Q12H [facility] Stop: 04/20/22 21:29 Last Infusion: 04/19/22 10:06 Dose: 200 mls/hr Documented By: ELY Magnesium Oxide (Magnesium Oxide 400 Mg Tablet) 400 mg PO BIDWM [facility] Last Admin: 04/19/22 08:40 Dose: 400 mg Documented By: ELY Melatonin (Melatonin 3 Mg Tablet) 3 mg PO BEDTIME PRN PRN Reason: Insomnia Last Admin: 04/16/22 22:37 Dose: 3 mg Documented By: GUILLERMO Nystatin (Nystatin Powder 15 Gm Bottle) 1 appl TOPICAL TID [facility]; Protocol Last Admin: 04/19/22 16:55 Dose: 1 appl Documented By: BOGDAN Omeprazole (Omeprazole 20 Mg Capsule.Dr) 20 mg PO DAILY@0630 [facility] Last Admin: 04/19/22 05:52 Dose: 20 mg Documented By: CRISTOFER Ondansetron HCl (Ondansetron Hcl 4 Mg/2 Ml Vial) 4 mg IVPUSH Q8H PRN PRN Reason: Nausea and Vomiting Last Admin: 04/11/22 00:12 Dose: 4 mg Documented By: FARIBA Pharmacy Consult (Consult Rx Perform Med Rec) 1 each MISCELLANE ONCE PRN PRN Reason: Consult order Rivaroxaban (Rivaroxaban 15 Mg Tablet) 15 mg PO DAILY@1700 [facility] Last Admin: 04/18/22 16:31 Dose: 15 mg Documented By: BETY Sodium Chloride (0.9 % Sodium Chloride Flush 3 Ml Syringe) 3 ml IVFLUSH QSHIFT [facility] Last Admin: 04/19/22 08:40 Dose: 3 ml Documented By: ELY Tamsulosin HCl (Tamsulosin Hcl 0.4 Mg Capsule) 0.8 mg PO DAILY [facility] Last Admin: 04/19/22 08:39 Dose: 0.8 mg Documented By: ELY Trazodone HCl (Trazodone Hcl 25 Mg Halftab) 12.5 mg PO BID PRN PRN Reason: Pain, Mild (Pain Scale 1-3) Labs CBC & Chem 7: 04/11/22 03:34 04/18/22 08:39 Assessment and Plan (1) NSVT (nonsustained ventricular tachycardia): Status: Acute (2) Infection due to ESBL-producing Escherichia coli: Status: Acute Plan 77yo M with hx chronic HFrEF, AF s/p PPM 2019 AC on rivaroxaban, CKD3, unspecified dementia, brought in after falling in the [place] while intoxicated and developing an open anal wound with fecal drainage admitted for perirectal perforation/cellulitis. He was transferred to intensive care unit overnight of 04/09 for acute hypoxia with pulmonary edema secondary to increased fluid overload, AFib with RVR briefly requiring BiPAP support for respiratory effort and not for hypercapnia.? He was diuressed with good effect and ultimately taking off bid NSVT asymptomatic 7 beats this easly morning added magnesium iv and adjusted po also daily magnesium Change digoxin to every other day Increase carvedilol to 12.5 b.i.d. Keep on telemetry Resistant E. coli UTI Meropenem since 04/10 (D8/10) Acute respiratory failure with hypoxia due to heart failure resolved. decompensated acute on chronic systolic heart failure EF 15%, required IV diuresis in ICU, p.o. daily Bumex 1mg Drowsiness resolved ABG was fine, he is more alert, avoid sedative medications Perirectal perforation/cellulitis fecal drainage through open perianal wound Persists, cellulitis resolved. ? no acute issues r/t perforation Urinary retention prn bladder scan, straight cath PRN bladder scan seems fine freddie on CKD3,hyponatremia hyperkalemia ,AGMA,low bicarb resolved with bicarb drip. follow BMP continue to moniter generalized pain continue Tylenol and prn trazodone recommend out of bed to chair Permanent AFIB rate controlled, continue, continue Xarelto Agitation, hallucinations seems to be doing much better, possible Hospital delerium ? consider zyprexa or seroquel PRN avoid seadtive meds. ?DVT prophylaxis Rivaroxaban DNR/DNI need for inaptient: Continue treatment for ESBL E coli to IV antibiotic pending safe discharge plan Time Spent With Patient Time: Total time managing care of this patient today ____ minutes. Quality Stroke Does the patient have a stroke diagnosis?: No VTE Prior VTE?: No VTE Risk Level:: Medical - moderate - high VTE Device Contraindication: N/A - Device Ordered VTE Drug Contraindication: Treatment Not Indicated
[2022-04-19] MEDS: Rivaroxaban 15 MG TABLET PO (17:05)
[2022-04-19 19:23] VITALS: BP 134/88; PULSE 68; RESP 20; TEMP 36.3; O2SAT 97
[2022-04-19] MEDS: Acetaminophen 325 MG TABLET 650 MG PO (19:45)
[2022-04-20] VITALS: BP 119/81; PULSE 72; RESP 20; TEMP 36.6; O2SAT 97
[2022-04-20] MEDS: 0.9 % Sodium Chloride Flush 3 ML SYRINGE IVFLUSH ×3 (00:16→18:04)
[2022-04-20 02:53] VITALS: BP 140/77; PULSE 70; RESP 20; TEMP 36.4; O2SAT 94
[2022-04-20] MEDS: traZODone HCL 25 MG HALFTAB 12.5 MG PO ×2 (03:31→20:58)
[2022-04-20] MEDS: Omeprazole 20 MG CAPSULE.DR PO (05:46)
[2022-04-20 08:00] VITALS: BP 119/82; PULSE 58; RESP 19; TEMP 36.6; O2SAT 91
[2022-04-20] MEDS: Bumetanide 1 MG TABLET PO (09:47)
[2022-04-20] MEDS: carvediloL 12.5 MG TABLET PO ×2 (09:48→20:57)
[2022-04-20] MEDS: Folic Acid 1 MG TABLET PO (09:48)
[2022-04-20] MEDS: Magnesium Oxide 400 MG TABLET PO ×2 (09:48→18:03)
[2022-04-20] MEDS: Tamsulosin HCL 0.4 MG CAPSULE 0.8 MG PO (09:48)
[2022-04-20] MEDS: Digoxin 0.125 MG TABLET PO (09:50)
[2022-04-20] MEDS: Nystatin Powder 15 GM BOTTLE 1 APPL TOPICAL ×2 (10:38→18:04)
[2022-04-20 11:42] VITALS: BP 125/87; PULSE 66; RESP 18; TEMP 36.7; O2SAT 97
--- NOTE | 2022-04-20 14:06 | HO.PM.IMPN ---
Subjective Subjective Date of Service: 04/20/22 Interval History: follow up Resistant E. coli UTI,decompensated? acute on chronic systolic heart failure Review of Systems Seems more pleasant this morning, denies any chest pain or shortness of breath or abdominal pain or fever chills. Physical Exam Vital Signs: Vital Signs: Last Vital Signs Temp 98.1 F 04/20/22 11:42 Pulse 66 04/20/22 11:42 Resp 18 04/20/22 11:42 BP 125/87 04/20/22 11:42 Pulse Ox 97 04/20/22 11:42 O2 Del Method 04/20/22 11:42 O2 Flow Rate 2 04/07/22 03:58 FiO2 30 04/10/22 07:00 Oxygen Flow Rate 30 04/10/22 05:25 BMI result Body Mass Index 26.4 Constitutional : Awake, interactive, not in distress Neck : Normal inspection, Supple Cardiovascular : RRR, no JVP, no lower extremity edema Respiratory : good bilateral air entry,? no crackles, wheezes or rhonchi Gastrointestinal:? soft, lax, Normal bowel sounds, Non tender Skin : Warm, Dry Neurological : Alert & oriented? to self and place, No focal defici Objective Data Active Medications Acetaminophen (Acetaminophen 325 Mg Tablet) 650 mg PO Q6H PRN PRN Reason: Pain, Mild (Pain Scale 1-3) Last Admin: 04/19/22 19:45 Dose: 650 mg Documented By: BOGDAN Benzonatate (Benzonatate 100 Mg Capsule) 100 mg PO TID PRN PRN Reason: Cough Last Admin: 02/22/22 16:03 Dose: 100 mg Documented By: BOGDAN Bumetanide (Bumetanide 1 Mg Tablet) 1 mg PO DAILY [facility]; Protocol Last Admin: 04/20/22 09:47 Dose: 1 mg Documented By: CHARLIE Carvedilol (Carvedilol 12.5 Mg Tablet) 12.5 mg PO BID [facility]; Protocol Last Admin: 04/20/22 09:48 Dose: 12.5 mg Documented By: CHARLIE Digoxin (Digoxin 0.125 Mg Tablet) 0.125 mg PO Q2D [facility] Last Admin: 04/20/22 09:50 Dose: 0.125 mg Documented By: CHARLIE Docusate Sodium (Docusate Sodium 100 Mg Capsule) 100 mg PO BEDTIME PRN PRN Reason: Constipation Folic Acid (Folic Acid 1 Mg Tablet) 1 mg PO DAILY [facility] Last Admin: 04/20/22 09:48 Dose: 1 mg Documented By: CHARLIE Meropenem 1 gm/ Sodium (Chloride) 100 mls @ 200 mls/hr IV Q12H [facility] Stop: 04/20/22 21:29 Last Infusion: 04/20/22 10:39 Dose: 0 mls/hr Documented By: CHARLIE Magnesium Oxide (Magnesium Oxide 400 Mg Tablet) 400 mg PO BIDWM [facility] Last Admin: 04/20/22 09:48 Dose: 400 mg Documented By: CHARLIE Melatonin (Melatonin 3 Mg Tablet) 3 mg PO BEDTIME PRN PRN Reason: Insomnia Last Admin: 04/16/22 22:37 Dose: 3 mg Documented By: GUILLERMO Nystatin (Nystatin Powder 15 Gm Bottle) 1 appl TOPICAL TID [facility]; Protocol Last Admin: 04/20/22 10:38 Dose: 1 appl Documented By: CHARLIE Omeprazole (Omeprazole 20 Mg Capsule.Dr) 20 mg PO DAILY@0630 [facility] Last Admin: 04/20/22 05:46 Dose: 20 mg Documented By: ILAN Ondansetron HCl (Ondansetron Hcl 4 Mg/2 Ml Vial) 4 mg IVPUSH Q8H PRN PRN Reason: Nausea and Vomiting Last Admin: 04/11/22 00:12 Dose: 4 mg Documented By: FARIBA Pharmacy Consult (Consult Rx Perform Med Rec) 1 each MISCELLANE ONCE PRN PRN Reason: Consult order Rivaroxaban (Rivaroxaban 15 Mg Tablet) 15 mg PO DAILY@1700 [facility] Last Admin: 04/19/22 17:05 Dose: 15 mg Documented By: THOMAS Sodium Chloride (0.9 % Sodium Chloride Flush 3 Ml Syringe) [facility] Last Admin: 04/20/22 09:47 Dose: 3 ml Documented By: CHARLIE Tamsulosin HCl (Tamsulosin Hcl 0.4 Mg Capsule) 0.8 mg PO DAILY [facility] Last Admin: 04/20/22 09:48 Dose: 0.8 mg Documented By: CHARLIE Trazodone HCl (Trazodone Hcl 25 Mg Halftab) 12.5 mg PO BID PRN PRN Reason: Pain, Mild (Pain Scale 1-3) Last Admin: 04/20/22 03:31 Dose: 12.5 mg Documented By: ILAN Labs CBC & Chem 7: 04/11/22 03:34 04/18/22 08:39 Assessment and Plan (1) NSVT (nonsustained ventricular tachycardia): Status: Acute (2) Infection due to ESBL-producing Escherichia coli: Status: Acute Plan 77yo M with hx chronic HFrEF, AF s/p PPM 2019 AC on rivaroxaban, CKD3, unspecified dementia, brought in after falling in the [place] while intoxicated and developing an open anal wound with fecal drainage admitted for perirectal perforation/cellulitis. He was transferred to intensive care unit overnight of 04/09 for acute hypoxia with pulmonary edema secondary to increased fluid overload, AFib with RVR briefly requiring BiPAP support for respiratory effort and not for hypercapnia.? He was diuressed with good effect and ultimately taking off bid NSVT asymptomatic 7 beats this easly morning added magnesium iv and adjusted po also daily magnesium Change digoxin to every other day Increase carvedilol to 12.5 b.i.d. Keep on telemetry Resistant E. coli UTI Meropenem since 04/10 (D9) Acute respiratory failure with hypoxia due to heart failure resolved. decompensated acute on chronic systolic heart failure EF 15%, required IV diuresis in ICU, p.o. daily Bumex 1mg Drowsiness resolved ABG was fine, he is more alert, avoid sedative medications Perirectal perforation/cellulitis fecal drainage through open perianal wound Persists, cellulitis resolved. ? no acute issues r/t perforation Urinary retention prn bladder scan, straight cath PRN bladder scan seems fine freddie on CKD3,hyponatremia hyperkalemia ,AGMA,low bicarb resolved with bicarb drip. follow BMP continue to moniter generalized pain continue Tylenol and prn trazodone recommend out of bed to chair Permanent AFIB rate controlled, continue, continue Xarelto Agitation, hallucinations seems to be doing much better, possible Hospital delerium ? consider zyprexa or seroquel PRN avoid seadtive meds. ?DVT prophylaxis Rivaroxaban DNR/DNI need for inaptient: Continue treatment for ESBL E coli to IV antibiotic pending safe discharge plan Time Spent With Patient Time: Total time managing care of this patient today ____ minutes. Quality Stroke Does the patient have a stroke diagnosis?: No VTE Prior VTE?: No VTE Risk Level:: Medical - moderate - high VTE Device Contraindication: N/A - Device Ordered VTE Drug Contraindication: Treatment Not Indicated
[2022-04-20 15:24] VITALS: BP 136/80; PULSE 71; RESP 15; TEMP 36.7; O2SAT 97
[2022-04-20] MEDS: Rivaroxaban 15 MG TABLET PO (18:03)
[2022-04-20 19:38] VITALS: BP 121/89; PULSE 78; RESP 16; TEMP 36.6; O2SAT 91
[2022-04-20] MEDS: Melatonin 3 MG TABLET PO (20:57)
[2022-04-20] MEDS: Acetaminophen 325 MG TABLET 650 MG PO (20:57)
[2022-04-21] VITALS: BP 109/72; PULSE 75; RESP 20; TEMP 36.3; O2SAT 93
[2022-04-21 02:55] VITALS: BP 114/75; PULSE 77; RESP 20; TEMP 36.4; O2SAT 95
[2022-04-21] MEDS: Omeprazole 20 MG CAPSULE.DR PO (04:57)
[2022-04-21 07:29] VITALS: BP 117/79; PULSE 73; RESP 20; TEMP 36.6; O2SAT 97
[2022-04-21 09:24] LABS: Anion Gap 13 (12-20); Blood Urea Nitrogen 26 mg/dL (9-16); Calcium 8.6 mg/dL (8.4-10.2); Carbon Dioxide 29 mmol/L (22-29); Chloride 99 mmol/L (96-108); Creatinine Clr Calc Pharmacy 54.9; Estimated Glomerular Filt Rate > 60; Glucose Random 105 mg/dL (60-115); Sodium 137 mmol/L (135-145)
[2022-04-21] MEDS: Bumetanide 1 MG TABLET PO (10:14)
[2022-04-21] MEDS: carvediloL 12.5 MG TABLET PO ×2 (10:14→20:40)
[2022-04-21] MEDS: Tamsulosin HCL 0.4 MG CAPSULE 0.8 MG PO (10:14)
[2022-04-21] MEDS: Folic Acid 1 MG TABLET PO (10:14)
[2022-04-21] MEDS: Magnesium Oxide 400 MG TABLET PO (10:14)
[2022-04-21] MEDS: Nystatin Powder 15 GM BOTTLE 1 APPL TOPICAL ×2 (10:14→22:32)
[2022-04-21] MEDS: 0.9 % Sodium Chloride Flush 3 ML SYRINGE IVFLUSH ×2 (10:15→20:44)
[2022-04-21 11:40] VITALS: BP 127/83; PULSE 80; RESP 20; TEMP 36.7; O2SAT 95
--- NOTE | 2022-04-21 11:52 | P.PNIM_ITS ---
Subjective Subjective Date of Service: 04/21/22 Interval History: 1 episode of nsvt yesterday evening , no new events patient asymptomatic: Denies any shortness of breath or chest pain or nausea vomiting or abdominal pain Review of Systems Denies any fever or cough or phlegm. Physical Exam Vital Signs: Vital Signs: Last Vital Signs Temp 98.0 F 04/21/22 11:40 Pulse 80 04/21/22 11:40 Resp 20 04/21/22 11:40 BP 127/83 04/21/22 11:40 Pulse Ox 95 04/21/22 11:40 O2 Del Method 04/21/22 11:40 O2 Flow Rate 2 04/07/22 03:58 FiO2 30 04/10/22 07:00 Oxygen Flow Rate 30 04/10/22 05:25 BMI result Body Mass Index 26.4 Constitutional : Awake, interactive, not in distress Neck : Normal inspection, Supple Cardiovascular : RRR, no JVP, no lower extremity edema Respiratory : good bilateral air entry,? no crackles, wheezes or rhonchi Gastrointestinal:? soft, lax, Normal bowel sounds, Non tender Skin : Warm, Dry Neurological : Alert & oriented? to self and place, No focal deficiet. Objective Data Active Medications Acetaminophen (Acetaminophen 325 Mg Tablet) 650 mg PO Q6H PRN PRN Reason: Pain, Mild (Pain Scale 1-3) Last Admin: 04/20/22 20:57 Dose: 650 mg Documented By: CAROL Benzonatate (Benzonatate 100 Mg Capsule) 100 mg PO TID PRN PRN Reason: Cough Last Admin: 02/22/22 16:03 Dose: 100 mg Documented By: BOGDAN Bumetanide (Bumetanide 1 Mg Tablet) 1 mg PO DAILY [facility]; Protocol Last Admin: 04/21/22 10:14 Dose: 1 mg Documented By: CHARLIE Carvedilol (Carvedilol 12.5 Mg Tablet) 12.5 mg PO BID [facility]; Protocol Last Admin: 04/21/22 10:14 Dose: 12.5 mg Documented By: CHARLIE Digoxin (Digoxin 0.125 Mg Tablet) 0.125 mg PO Q2D [facility] Last Admin: 04/20/22 09:50 Dose: 0.125 mg Documented By: CHARLIE Docusate Sodium (Docusate Sodium 100 Mg Capsule) 100 mg PO BEDTIME PRN PRN Reason: Constipation Folic Acid (Folic Acid 1 Mg Tablet) 1 mg PO DAILY [facility] Last Admin: 04/21/22 10:14 Dose: 1 mg Documented By: CHARLIE Magnesium Oxide (Magnesium Oxide 400 Mg Tablet) 400 mg PO BIDWM [facility] Last Admin: 04/21/22 10:14 Dose: 400 mg Documented By: CHARLIE Melatonin (Melatonin 3 Mg Tablet) 3 mg PO BEDTIME PRN PRN Reason: Insomnia Last Admin: 04/20/22 20:57 Dose: 3 mg Documented By: CAROL Nystatin (Nystatin Powder 15 Gm Bottle) 1 appl TOPICAL TID [facility]; Protocol Last Admin: 04/21/22 10:14 Dose: 1 appl Documented By: CHARLIE Omeprazole (Omeprazole 20 Mg Capsule.Dr) 20 mg PO DAILY@0630 [facility] Last Admin: 04/21/22 04:57 Dose: 20 mg Documented By: CAROL Ondansetron HCl (Ondansetron Hcl 4 Mg/2 Ml Vial) 4 mg IVPUSH Q8H PRN PRN Reason: Nausea and Vomiting Last Admin: 04/11/22 00:12 Dose: 4 mg Documented By: FARIBA Pharmacy Consult (Consult Rx Perform Med Rec) 1 each MISCELLANE ONCE PRN PRN Reason: Consult order Rivaroxaban (Rivaroxaban 15 Mg Tablet) 15 mg PO DAILY@1700 [facility] Last Admin: 04/20/22 18:03 Dose: 15 mg Documented By: CHARLIE Sodium Chloride (0.9 % Sodium Chloride Flush 3 Ml Syringe) 3 ml IVFLUSH QSHIFT [facility] Last Admin: 04/21/22 10:15 Dose: 3 ml Documented By: CHARLIE Tamsulosin HCl (Tamsulosin Hcl 0.4 Mg Capsule) 0.8 mg PO DAILY [facility] Last Admin: 04/21/22 10:14 Dose: 0.8 mg Documented By: CHARLIE Trazodone HCl (Trazodone Hcl 25 Mg Halftab) 12.5 mg PO BID PRN PRN Reason: Pain, Mild (Pain Scale 1-3) Last Admin: 04/20/22 20:58 Dose: 12.5 mg Documented By: CAROL Labs CBC & Chem 7: 04/11/22 03:34 04/21/22 08:53 Labs: Laboratory Results - last 24 hr 04/21/22 08:53 Anion Gap 13 Estim Creat Clear Calc 54.9 Estimated GFR > 60 Random Glucose 105 Calcium 8.6 Assessment and Plan (1) NSVT (nonsustained ventricular tachycardia): Status: Acute (2) Infection due to ESBL-producing Escherichia coli: Status: Acute Plan 77yo M with hx chronic HFrEF, AF s/p PPM 2019 AC on rivaroxaban, CKD3, unspecified dementia, brought in after falling [place] the [place] while intoxicated and developing an open anal wound with fecal drainage admitted for perirectal perforation/cellulitis. He was transferred to intensive care unit overnight of 04/09 for acute hypoxia with pulmonary edema secondary to increased fluid overload, AFib with RVR briefly requiring BiPAP support for respiratory effort and not for hypercapnia.? He was diuressed with good effect and ultimately taking off bid NSVT asymptomatic 10 beats last evenin add magnesium levels daily magnesium Change digoxin to every other day Increase carvedilol to 12.5 b.i.d. Keep on telemetry Resistant E. coli UTI Meropenem since 04/10 (D9) Acute respiratory failure with hypoxia due to heart failure resolved. decompensated acute on chronic systolic heart failure EF 15%, required IV diuresis in ICU, p.o. daily Bumex 1mg Drowsiness resolved ABG was fine, he is more alert, avoid sedative medications Perirectal perforation/cellulitis fecal drainage through open perianal wound Persists, cellulitis resolved. ? no acute issues r/t perforation Urinary retention prn bladder scan, straight cath PRN bladder scan seems fine freddie on CKD3,hyponatremia hyperkalemia ,AGMA,low bicarb resolved with bicarb drip. follow BMP continue to moniter generalized pain continue Tylenol and prn trazodone recommend out of bed to chair Permanent AFIB rate controlled, continue, continue Xarelto Agitation, hallucinations seems to be doing much better, possible Hospital delerium ? consider zyprexa or seroquel PRN avoid seadtive meds. ?DVT prophylaxis Rivaroxaban DNR/DNI need for inaptient: Continue treatment for ESBL E coli to IV antibiotic pending safe discharge plan Time Spent With Patient Time: Total time managing care of this patient today ____ minutes. Quality Stroke Does the patient have a stroke diagnosis?: No VTE Prior VTE?: No VTE Risk Level:: Medical - moderate - high VTE Device Contraindication: N/A - Device Ordered VTE Drug Contraindication: Treatment Not Indicated
--- NOTE | 2022-04-21 15:04 | MHC.CM.PN ---
perrounds pt ready for dc bed search in progress
[2022-04-21 15:45] VITALS: BP 111/73; PULSE 63; RESP 15; TEMP 36.5; O2SAT 95
[2022-04-21 19:27] VITALS: BP 116/87; PULSE 89; RESP 15; TEMP 36.8; O2SAT 98
[2022-04-21] MEDS: traZODone HCL 25 MG HALFTAB 12.5 MG PO (20:40)
[2022-04-21] MEDS: Acetaminophen 325 MG TABLET 650 MG PO (20:40)
[2022-04-21] MEDS: Melatonin 3 MG TABLET PO (20:40)
[2022-04-22] VITALS: BP 114/76; PULSE 77; RESP 16; TEMP 36.6; O2SAT 96
[2022-04-22] MEDS: Acetaminophen 325 MG TABLET 650 MG PO ×3 (02:40→20:47)
[2022-04-22 03:14] VITALS: BP 105/79; PULSE 84; RESP 15; TEMP 36.3; O2SAT 94
[2022-04-22] MEDS: Omeprazole 20 MG CAPSULE.DR PO (05:30)
[2022-04-22 07:06] VITALS: BP 120/79; PULSE 70; RESP 20; TEMP 36.4; O2SAT 95
[2022-04-22] MEDS: Tamsulosin HCL 0.4 MG CAPSULE 0.8 MG PO (09:54)
[2022-04-22] MEDS: Bumetanide 1 MG TABLET PO (09:54)
[2022-04-22] MEDS: carvediloL 12.5 MG TABLET PO ×2 (09:55→20:47)
[2022-04-22] MEDS: 0.9 % Sodium Chloride Flush 3 ML SYRINGE IVFLUSH (09:55)
[2022-04-22] MEDS: Magnesium Oxide 400 MG TABLET PO ×2 (09:55→16:14)
[2022-04-22] MEDS: Folic Acid 1 MG TABLET PO (09:55)
[2022-04-22] MEDS: Nystatin Powder 15 GM BOTTLE 1 APPL TOPICAL ×3 (09:56→20:53)
[2022-04-22] MEDS: Digoxin 0.125 MG TABLET PO (10:11)
[2022-04-22 11:02] VITALS: BP 122/82; PULSE 72; RESP 20; TEMP 36.3; O2SAT 95
--- NOTE | 2022-04-22 13:47 | P.PNIM_ITS ---
Subjective Subjective Date of Service: 04/22/22 Interval History: follow up chf ,uti Review of Systems completed uti rx. Denies any new complaints or any urinary or abdominal pain. No fevers. Physical Exam Vital Signs: Vital Signs: Last Vital Signs Temp 97.3 F 04/22/22 11:02 Pulse 72 04/22/22 11:02 Resp 20 04/22/22 11:02 BP 122/82 04/22/22 11:02 Pulse Ox 95 04/22/22 11:02 O2 Del Method 04/22/22 11:02 O2 Flow Rate 2 04/07/22 03:58 FiO2 30 04/10/22 07:00 Oxygen Flow Rate 30 04/10/22 05:25 BMI result Body Mass Index 26.4 Constitutional : Awake, interactive, not in distress Neck : Normal inspection, Supple Cardiovascular : RRR, no JVP, no lower extremity edema Respiratory : good bilateral air entry,? no crackles, wheezes or rhonchi Gastrointestinal:? soft, lax, Normal bowel sounds, Non tender Skin : Warm, Dry, trace edema Neurological : Alert & oriented? to self and place, No focal deficiet. Objective Data Active Medications Acetaminophen (Acetaminophen 325 Mg Tablet) 650 mg PO Q6H PRN PRN Reason: Pain, Mild (Pain Scale 1-3) Last Admin: 04/22/22 02:40 Dose: 650 mg Documented By: VIDAL Benzonatate (Benzonatate 100 Mg Capsule) 100 mg PO TID PRN PRN Reason: Cough Last Admin: 02/22/22 16:03 Dose: 100 mg Documented By: BOGDAN Bumetanide (Bumetanide 1 Mg Tablet) 1 mg PO DAILY [facility]; Protocol Last Admin: 04/22/22 09:54 Dose: 1 mg Documented By: BETY Carvedilol (Carvedilol 12.5 Mg Tablet) 12.5 mg PO BID [facility]; Protocol Last Admin: 04/22/22 09:55 Dose: 12.5 mg Documented By: BETY Digoxin (Digoxin 0.125 Mg Tablet) 0.125 mg PO Q2D [facility] Last Admin: 04/22/22 10:11 Dose: 0.125 mg Documented By: BETY Docusate Sodium (Docusate Sodium 100 Mg Capsule) 100 mg PO BEDTIME PRN PRN Reason: Constipation Folic Acid (Folic Acid 1 Mg Tablet) 1 mg PO DAILY [facility] Last Admin: 04/22/22 09:55 Dose: 1 mg Documented By: BETY Magnesium Oxide (Magnesium Oxide 400 Mg Tablet) 400 mg PO BIDWM [facility] Last Admin: 04/22/22 09:55 Dose: 400 mg Documented By: BETY Melatonin (Melatonin 3 Mg Tablet) 3 mg PO BEDTIME PRN PRN Reason: Insomnia Last Admin: 04/21/22 20:40 Dose: 3 mg Documented By: VIDAL Nystatin (Nystatin Powder 15 Gm Bottle) 1 appl TOPICAL TID [facility]; Protocol Last Admin: 04/22/22 09:56 Dose: 1 appl Documented By: BETY Omeprazole (Omeprazole 20 Mg Capsule.Dr) 20 mg PO DAILY@0630 [facility] Last Admin: 04/22/22 05:30 Dose: 20 mg Documented By: VIDAL Ondansetron HCl (Ondansetron Hcl 4 Mg/2 Ml Vial) 4 mg IVPUSH Q8H PRN PRN Reason: Nausea and Vomiting Last Admin: 04/11/22 00:12 Dose: 4 mg Documented By: FARIBA Pharmacy Consult (Consult Rx Perform Med Rec) 1 each MISCELLANE ONCE PRN PRN Reason: Consult order Rivaroxaban (Rivaroxaban 15 Mg Tablet) 15 mg PO DAILY@1700 [facility] Last Admin: 04/21/22 17:43 Dose: Not Given Documented By: CHARLIE Non-Admin Reason: Patient Refused Sodium Chloride (0.9 % Sodium Chloride Flush 3 Ml Syringe) 3 ml IVFLUSH QSHIFT [facility] Last Admin: 04/22/22 09:55 Dose: 3 ml Documented By: BETY Tamsulosin HCl (Tamsulosin Hcl 0.4 Mg Capsule) 0.8 mg PO DAILY [facility] Last Admin: 04/22/22 09:54 Dose: 0.8 mg Documented By: BETY Trazodone HCl (Trazodone Hcl 25 Mg Halftab) 12.5 mg PO BID PRN PRN Reason: Pain, Mild (Pain Scale 1-3) Last Admin: 04/21/22 20:40 Dose: 12.5 mg Documented By: VIDAL Labs CBC & Chem 7: 04/11/22 03:34 04/21/22 08:53 Assessment and Plan (1) Acute on chronic congestive heart failure: Status: Acute Plan 77yo M with hx chronic HFrEF, AF s/p PPM 2019 AC on rivaroxaban, CKD3, unspecified dementia, brought in after falling [place] the [place] while intoxicated and developing an open anal wound with fecal drainage admitted for perirectal perforation/cellulitis. He was transferred to intensive care unit overnight of 04/09 for acute hypoxia with pulmonary edema secondary to increased fluid overload,? AFib with RVR briefly requiring BiPAP support for respiratory effort and not for hypercapnia.? He was diuressed with good effect and ultimately taking off bid ? NSVT ?asymptomatic add magnesium levels daily magnesium continue carvedilol to 12.5 b.i.d,digoxin. Keep on telemetry Resistant E. coli UTI completed antibiotics. Acute respiratory failure with hypoxia due to heart failure resolved. decompensated? acute on chronic systolic heart failure EF 15%, required IV diuresis in ICU, p.o. daily Bumex 1mg Drowsiness ?resolved ABG was fine,? he is more alert, avoid sedative medications Perirectal perforation/cellulitis fecal drainage through open perianal wound Persists, cellulitis resolved. ? no acute issues r/t perforation Urinary retention prn bladder scan, straight cath PRN bladder scan seems fine freddie on CKD3,hyponatremia hyperkalemia ,AGMA,low bicarb resolved with bicarb drip. follow BMP continue to moniter ?generalized pain ?continue Tylenol and prn trazodone recommend out of bed to chair ?Permanent AFIB ?rate controlled, continue, continue Xarelto Agitation, hallucinations no new episodes consider zyprexa or seroquel PRN avoid seadtive meds. ?DVT prophylaxis Rivaroxaban DNR/DNI need for inaptient: awiting safe discharge plan Time Spent With Patient Time: Total time managing care of this patient today ____ minutes. Quality Stroke Does the patient have a stroke diagnosis?: No VTE Prior VTE?: No VTE Risk Level:: Medical - moderate - high VTE Device Contraindication: N/A - Device Ordered VTE Drug Contraindication: Treatment Not Indicated
[2022-04-22 15:42] VITALS: BP 106/72; PULSE 66; RESP 19; TEMP 36.2; O2SAT 95
[2022-04-22] MEDS: Rivaroxaban 15 MG TABLET PO (16:14)
[2022-04-22 19:43] VITALS: BP 116/63; PULSE 78; RESP 16; TEMP 36.2; O2SAT 96
[2022-04-22] MEDS: Melatonin 3 MG TABLET PO (20:46)
[2022-04-23] VITALS: BP 115/85; PULSE 84; RESP 20; TEMP 36.2; O2SAT 98
[2022-04-23] MEDS: 0.9 % Sodium Chloride Flush 3 ML SYRINGE IVFLUSH ×2 (00:44→11:38)
--- NOTE | 2022-04-23 01:44 | PC.NURSE ---
9 beat VTACh around 0100. VSS and asymptomatic. MD made aware and ordered Mag and BMP
[2022-04-23] MEDS: Acetaminophen 325 MG TABLET 650 MG PO ×4 (02:33→23:17)
[2022-04-23 02:48] VITALS: BP 121/90; PULSE 64; RESP 20; TEMP 36.2; O2SAT 96
[2022-04-23 03:46] LABS: Anion Gap 15 (12-20); Blood Urea Nitrogen 32 mg/dL (9-16); Calcium 8.6 mg/dL (8.4-10.2); Carbon Dioxide 29 mmol/L (22-29); Chloride 96 mmol/L (96-108); Creatinine Clr Calc Pharmacy 51.4; Estimated Glomerular Filt Rate 56; Glucose Random 111 mg/dL (60-115); Magnesium 1.9 mg/dL (1.6-2.6); Potassium 4.6 mmol/L (3.3-5.1); Sodium 135 mmol/L (135-145)
[2022-04-23] MEDS: Omeprazole 20 MG CAPSULE.DR PO (06:45)
[2022-04-23] MEDS: traZODone HCL 25 MG HALFTAB 12.5 MG PO (07:14)
[2022-04-23] MEDS: Tamsulosin HCL 0.4 MG CAPSULE 0.8 MG PO (07:14)
[2022-04-23] MEDS: Bumetanide 1 MG TABLET PO (07:15)
[2022-04-23] MEDS: Magnesium Oxide 400 MG TABLET PO (07:15)
[2022-04-23] MEDS: carvediloL 12.5 MG TABLET PO ×2 (07:15→20:10)
[2022-04-23] MEDS: Folic Acid 1 MG TABLET PO (07:15)
[2022-04-23] MEDS: Nystatin Powder 15 GM BOTTLE 1 APPL TOPICAL ×2 (07:18→11:38)
[2022-04-23 08:00] VITALS: BP 113/73; PULSE 67; RESP 16; TEMP 36.4; O2SAT 96
[2022-04-23] MEDS: Magnesium Oxide 400 MG TABLET 800 MG PO (11:38)
[2022-04-23] MEDS: Magnesium Sulfate/D5W 1 GM/100 ML PIGGYBACK IV (11:38)
[2022-04-23 12:00] VITALS: PULSE 75; RESP 16; TEMP 36.4; O2SAT 94
--- NOTE | 2022-04-23 14:37 | P.PNIM_ITS ---
Subjective Subjective Date of Service: 04/23/22 Interval History: follow up chf ,uti Review of Systems completed uti rx. Denies any new complaints or any urinary or abdominal pain.? No fevers. Physical Exam Vital Signs: Vital Signs: Last Vital Signs Temp 97.5 F 04/23/22 12:00 Pulse 75 04/23/22 12:00 Resp 16 04/23/22 12:00 BP 113/73 04/23/22 08:00 Pulse Ox 94 04/23/22 12:00 O2 Del Method 04/23/22 12:00 O2 Flow Rate 2 04/07/22 03:58 FiO2 30 04/10/22 07:00 Oxygen Flow Rate 30 04/10/22 05:25 BMI result Body Mass Index 26.4 ?Constitutional : Awake, interactive, not in distress Cardiovascular : RRR, no JVP, no lower extremity edema Respiratory : good bilateral air entry,? no crackles, wheezes or rhonchi Gastrointestinal:? soft, lax, Normal bowel sounds, Non tender Skin : Warm, Dry, trace edema Neurological : Alert & oriented? to self and place, No focal deficiet. Objective Data Active Medications Acetaminophen (Acetaminophen 325 Mg Tablet) 650 mg PO Q6H PRN PRN Reason: Pain, Mild (Pain Scale 1-3) Last Admin: 04/23/22 11:38 Dose: 650 mg Documented By: BETY Benzonatate (Benzonatate 100 Mg Capsule) 100 mg PO TID PRN PRN Reason: Cough Last Admin: 02/22/22 16:03 Dose: 100 mg Documented By: BOGDAN Bumetanide (Bumetanide 1 Mg Tablet) 1 mg PO DAILY [facility]; Protocol Last Admin: 04/23/22 07:15 Dose: 1 mg Documented By: BETY Carvedilol (Carvedilol 12.5 Mg Tablet) 12.5 mg PO BID [facility]; Protocol Last Admin: 04/23/22 07:15 Dose: 12.5 mg Documented By: BETY Digoxin (Digoxin 0.125 Mg Tablet) 0.125 mg PO Q2D [facility] Last Admin: 04/22/22 10:11 Dose: 0.125 mg Documented By: BETY Docusate Sodium (Docusate Sodium 100 Mg Capsule) 100 mg PO BEDTIME PRN PRN Reason: Constipation Folic Acid (Folic Acid 1 Mg Tablet) 1 mg PO DAILY [facility] Last Admin: 04/23/22 07:15 Dose: 1 mg Documented By: BETY Magnesium Oxide (Magnesium Oxide 400 Mg Tablet) 400 mg PO BIDWM [facility] Last Admin: 04/23/22 11:39 Dose: Not Given Documented By: BETY Non-Admin Reason: already supplemented Melatonin (Melatonin 3 Mg Tablet) 3 mg PO BEDTIME PRN PRN Reason: Insomnia Last Admin: 04/22/22 20:46 Dose: 3 mg Documented By: BOGDAN Nystatin (Nystatin Powder 15 Gm Bottle) 1 appl TOPICAL TID [facility]; Protocol Last Admin: 04/23/22 11:38 Dose: 1 appl Documented By: BETY Omeprazole (Omeprazole 20 Mg Capsule.) 20 mg PO DAILY@0630 [facility] Last Admin: 04/23/22 06:45 Dose: 20 mg Documented By: KIMBERLY Ondansetron HCl (Ondansetron Hcl 4 Mg/2 Ml Vial) 4 mg IVPUSH Q8H PRN PRN Reason: Nausea and Vomiting Last Admin: 04/11/22 00:12 Dose: 4 mg Documented By: FARIBA Pharmacy Consult (Consult Rx Perform Med Rec) 1 each MISCELLANE ONCE PRN PRN Reason: Consult order Rivaroxaban (Rivaroxaban 15 Mg Tablet) 15 mg PO DAILY@1700 [facility] Last Admin: 04/22/22 16:14 Dose: 15 mg Documented By: THOMAS Sodium Chloride (0.9 % Sodium Chloride Flush 3 Ml Syringe) 3 ml IVFLUSH QSHIFT [facility] Last Admin: 04/23/22 11:38 Dose: 3 ml Documented By: BETY Tamsulosin HCl (Tamsulosin Hcl 0.4 Mg Capsule) 0.8 mg PO DAILY [facility] Last Admin: 04/23/22 07:14 Dose: 0.8 mg Documented By: BETY Trazodone HCl (Trazodone Hcl 25 Mg Halftab) 12.5 mg PO BID PRN PRN Reason: Pain, Mild (Pain Scale 1-3) Last Admin: 04/23/22 07:14 Dose: 12.5 mg Documented By: BETY Labs CBC & Chem 7: 04/11/22 03:34 04/23/22 03:10 Labs: Laboratory Results - last 24 hr 04/23/22 03:10 Anion Gap 15 Estim Creat Clear Calc 51.4 Estimated GFR 56 Random Glucose 111 Calcium 8.6 Magnesium 1.9 Assessment and Plan (1) Acute on chronic congestive heart failure: Status: Acute Plan 77yo M with hx chronic HFrEF, AF s/p PPM 2019 AC on rivaroxaban, CKD3, unspecified dementia, brought in after falling in the [place] while intoxicated and developing an open anal wound with fecal drainage admitted for perirectal perforation/cellulitis. He was transferred to intensive care unit overnight of 04/09 for acute hypoxia with pulmonary edema secondary to increased fluid overload,? AFib with RVR briefly requiring BiPAP support for respiratory effort and not for hypercapnia.? He was diuressed with good effect and ultimately taking off bid ? NSVT ?asymptomatic add magnesium levels daily magnesium continue carvedilol to 12.5 b.i.d,digoxin. Keep on telemetry Resistant E. coli UTI completed antibiotics. Acute respiratory failure with hypoxia due to heart failure resolved. decompensated? acute on chronic systolic heart failure EF 15%, required IV diuresis in ICU, p.o. daily Bumex 1mg Drowsiness ?resolved ABG was fine,? he is more alert, avoid sedative medications Perirectal perforation/cellulitis fecal drainage through open perianal wound Persists, cellulitis resolved. ? no acute issues r/t perforation Urinary retention prn bladder scan, straight cath PRN bladder scan seems fine freddie on CKD3,hyponatremia hyperkalemia ,AGMA,low bicarb resolved with bicarb drip. follow BMP continue to moniter ?generalized pain ?continue Tylenol and prn trazodone recommend out of bed to chair ?Permanent AFIB ?rate controlled, continue, continue Xarelto Agitation, hallucinations no new episodes consider zyprexa or seroquel PRN avoid seadtive meds. ?DVT prophylaxis Rivaroxaban DNR/DNI need for inaptient: awiting safe discharge plan Time Spent With Patient Time: Total time managing care of this patient today ____ minutes. Quality Stroke Does the patient have a stroke diagnosis?: No VTE Prior VTE?: No VTE Risk Level:: Medical - moderate - high VTE Device Contraindication: N/A - Device Ordered VTE Drug Contraindication: Treatment Not Indicated
[2022-04-23 15:31] VITALS: BP 134/82; PULSE 73; RESP 17; TEMP 36.2; O2SAT 99
[2022-04-23] MEDS: Rivaroxaban 15 MG TABLET PO (17:08)
[2022-04-23 19:08] VITALS: BP 127/81; PULSE 68; RESP 18; TEMP 36.6; O2SAT 96
[2022-04-23] MEDS: oxyCODONE HCl Immed Release 5 MG TABLET PO (20:08)
[2022-04-24 03:08] VITALS: BP 118/88; PULSE 102; RESP 20; TEMP 36.8; O2SAT 99
[2022-04-24 07:11] VITALS: BP 118/85; RESP 21; TEMP 36.6; O2SAT 98
--- NOTE | 2022-04-24 09:55 | HO.PM.IMPN ---
Subjective Subjective Date of Service: 04/24/22 Interval History: follow up chf ,uti Review of Systems completed uti rx. Denies any new complaints or any urinary or abdominal pain.? No fevers. Physical Exam Vital Signs: Vital Signs: Last Vital Signs Temp 97.9 F 04/24/22 07:11 Pulse 102 H 04/24/22 03:08 Resp 21 H 04/24/22 07:11 BP 118/85 04/24/22 07:11 Pulse Ox 98 04/24/22 07:11 O2 Del Method 04/24/22 07:11 O2 Flow Rate 3 04/24/22 03:08 FiO2 30 04/10/22 07:00 Oxygen Flow Rate 30 04/10/22 05:25 BMI result Body Mass Index 26.4 Constitutional : Awake, interactive, not in distress Cardiovascular : RRR, no JVP, no lower extremity edema Respiratory : good bilateral air entry,? no crackles, wheezes or rhonchi Gastrointestinal:? soft, lax, Normal bowel sounds, Non tender Skin : Warm, Dry, trace edema Neurological : Alert & oriented? to self and place, No focal deficie Objective Data Active Medications Acetaminophen (Acetaminophen 325 Mg Tablet) 650 mg PO Q6H PRN PRN Reason: Pain, Mild (Pain Scale 1-3) Last Admin: 04/23/22 23:17 Dose: 650 mg Documented By: HIPOLITO Benzonatate (Benzonatate 100 Mg Capsule) 100 mg PO TID PRN PRN Reason: Cough Last Admin: 02/22/22 16:03 Dose: 100 mg Documented By: BOGDAN Bumetanide (Bumetanide 1 Mg Tablet) 1 mg PO DAILY [facility]; Protocol Last Admin: 04/23/22 07:15 Dose: 1 mg Documented By: BETY Carvedilol (Carvedilol 12.5 Mg Tablet) 12.5 mg PO BID [facility]; Protocol Last Admin: 04/23/22 20:10 Dose: 12.5 mg Documented By: HIPOLITO Digoxin (Digoxin 0.125 Mg Tablet) 0.125 mg PO Q2D [facility] Last Admin: 04/22/22 10:11 Dose: 0.125 mg Documented By: BETY Docusate Sodium (Docusate Sodium 100 Mg Capsule) 100 mg PO BEDTIME PRN PRN Reason: Constipation Folic Acid (Folic Acid 1 Mg Tablet) 1 mg PO DAILY [facility] Last Admin: 04/23/22 07:15 Dose: 1 mg Documented By: BETY Magnesium Oxide (Magnesium Oxide 400 Mg Tablet) 400 mg PO BIDWM [facility] Last Admin: 04/23/22 11:39 Dose: Not Given Documented By: BETY Non-Admin Reason: already supplemented Melatonin (Melatonin 3 Mg Tablet) 3 mg PO BEDTIME PRN PRN Reason: Insomnia Last Admin: 04/22/22 20:46 Dose: 3 mg Documented By: BOGDAN Nystatin (Nystatin Powder 15 Gm Bottle) 1 appl TOPICAL TID [facility]; Protocol Last Admin: 04/23/22 21:09 Dose: Not Given Documented By: HIPOLITO Non-Admin Reason: Previously Administered Omeprazole (Omeprazole 20 Mg Capsule.) 20 mg PO DAILY@0630 [facility] Last Admin: 04/24/22 05:45 Dose: Not Given Documented By: HIPOLITO Non-Admin Reason: Patient Refused Ondansetron HCl (Ondansetron Hcl 4 Mg/2 Ml Vial) 4 mg IVPUSH Q8H PRN PRN Reason: Nausea and Vomiting Last Admin: 04/11/22 00:12 Dose: 4 mg Documented By: FARIBA Pharmacy Consult (Consult Rx Perform Med Rec) 1 each MISCELLANE ONCE PRN PRN Reason: Consult order Rivaroxaban (Rivaroxaban 15 Mg Tablet) 15 mg PO DAILY@1700 [facility] Last Admin: 04/23/22 17:08 Dose: 15 mg Documented By: BETY Sodium Chloride (0.9 % Sodium Chloride Flush 3 Ml Syringe) 3 ml IVFLUSH QSHIFT [facility] Last Admin: 04/24/22 00:40 Dose: Not Given Documented By: HIPOLITO Non-Admin Reason: Previously Administered Tamsulosin HCl (Tamsulosin Hcl 0.4 Mg Capsule) 0.8 mg PO DAILY [facility] Last Admin: 04/23/22 07:14 Dose: 0.8 mg Documented By: BETY Trazodone HCl (Trazodone Hcl 25 Mg Halftab) 12.5 mg PO BID PRN PRN Reason: Pain, Mild (Pain Scale 1-3) Last Admin: 01/01/23 07:14 Dose: 12.5 mg Documented By: BETY Labs CBC & Chem 7: 04/11/22 03:34 04/23/22 03:10 Assessment and Plan (1) Acute on chronic congestive heart failure: Status: Acute Plan 77yo M with hx chronic HFrEF, AF s/p PPM 2019 AC on rivaroxaban, CKD3, unspecified dementia, brought in after falling [place] the [place] while intoxicated and developing an open anal wound with fecal drainage admitted for perirectal perforation/cellulitis. He was transferred to intensive care unit overnight of 04/09 for acute hypoxia with pulmonary edema secondary to increased fluid overload,? AFib with RVR briefly requiring BiPAP support for respiratory effort and not for hypercapnia.? He was diuressed with good effect and ultimately taking off bid ? NSVT ?asymptomatic add magnesium levels daily magnesium continue carvedilol to 12.5 b.i.d,digoxin. Keep on telemetry Resistant E. coli UTI completed antibiotics. Acute respiratory failure with hypoxia due to heart failure resolved. decompensated? acute on chronic systolic heart failure EF 15%, required IV diuresis in ICU, p.o. daily Bumex 1mg Drowsiness ?resolved ABG was fine,? he is more alert, avoid sedative medications Perirectal perforation/cellulitis fecal drainage through open perianal wound Persists, cellulitis resolved. ? no acute issues r/t perforation Urinary retention prn bladder scan, straight cath PRN bladder scan seems fine freddie on CKD3,hyponatremia hyperkalemia ,AGMA,low bicarb resolved with bicarb drip. follow BMP continue to moniter ?generalized pain ?continue Tylenol and prn trazodone recommend out of bed to chair ?Permanent AFIB ?rate controlled, continue, continue Xarelto Agitation, hallucinations no new episodes consider zyprexa or seroquel PRN avoid seadtive meds. ?DVT prophylaxis Rivaroxaban DNR/DNI need for inaptient: awiting safe discharge plan Time Spent With Patient Time: Total time managing care of this patient today ____ minutes. Quality Stroke Does the patient have a stroke diagnosis?: No VTE Prior VTE?: No VTE Risk Level:: Medical - moderate - high VTE Device Contraindication: N/A - Device Ordered VTE Drug Contraindication: Treatment Not Indicated
[2022-04-24 10:52] VITALS: BP 142/64; PULSE 82; RESP 18; TEMP 36.1; O2SAT 96
[2022-04-24] MEDS: Tamsulosin HCL 0.4 MG CAPSULE 0.8 MG PO (11:36)
[2022-04-24] MEDS: 0.9 % Sodium Chloride Flush 3 ML SYRINGE IVFLUSH ×2 (11:37→16:48)
[2022-04-24] MEDS: Bumetanide 1 MG TABLET PO (11:37)
[2022-04-24] MEDS: carvediloL 12.5 MG TABLET PO ×2 (11:37→20:38)
[2022-04-24] MEDS: Magnesium Oxide 400 MG TABLET PO ×2 (11:37→16:49)
[2022-04-24] MEDS: Folic Acid 1 MG TABLET PO (11:37)
[2022-04-24] MEDS: Digoxin 0.125 MG TABLET PO (11:40)
[2022-04-24] MEDS: Nystatin Powder 15 GM BOTTLE 1 APPL TOPICAL ×3 (11:43→20:45)
--- NOTE | 2022-04-24 14:04 | MHC.CM.PN ---
EMR REVIEWED. CONTINUE TO SEEK LTC PLACEMENT. [facility] UPDATED WITH REQUEST FOR PLACEMENT, AWAITING RESPONSE. CM CONTINUES TO FOLLOW.
[2022-04-24 15:24] VITALS: BP 129/89; PULSE 93; RESP 16; TEMP 36.6; O2SAT 93
[2022-04-24] MEDS: Rivaroxaban 15 MG TABLET PO (16:47)
[2022-04-24] MEDS: Acetaminophen 325 MG TABLET 650 MG PO (16:54)
[2022-04-24 19:35] VITALS: BP 149/84; PULSE 70; RESP 14; TEMP 36.6; O2SAT 98
[2022-04-24] MEDS: ondansetron HCL 4 MG/2 ML VIAL IVPUSH (20:42)
[2022-04-25] VITALS (7 sets, daily range): BP systolic 111–130; BP diastolic 73–89; PULSE 60–76; RESP 16–20; TEMP 36.4–37.1; O2SAT 93–100
[2022-04-25] MEDS: 0.9 % Sodium Chloride Flush 3 ML SYRINGE IVFLUSH ×3 (03:05→17:55)
[2022-04-25] MEDS: Omeprazole 20 MG CAPSULE.DR PO (05:44)
[2022-04-25] MEDS: Bumetanide 1 MG TABLET PO (08:36)
[2022-04-25] MEDS: carvediloL 12.5 MG TABLET PO ×2 (08:36→21:42)
[2022-04-25] MEDS: Magnesium Oxide 400 MG TABLET PO ×2 (08:36→19:33)
[2022-04-25] MEDS: Folic Acid 1 MG TABLET PO (08:36)
[2022-04-25] MEDS: Tamsulosin HCL 0.4 MG CAPSULE 0.8 MG PO (08:36)
[2022-04-25 08:37] LABS: Anion Gap 11 (12-20); Blood Urea Nitrogen 30 mg/dL (9-16); Calcium 9.3 mg/dL (8.4-10.2); Carbon Dioxide 32 mmol/L (22-29); Chloride 99 mmol/L (96-108); Creatinine Clr Calc Pharmacy 57.4; Estimated Glomerular Filt Rate > 60; Glucose Random 83 mg/dL (60-115); Potassium 4.1 mmol/L (3.3-5.1); Sodium 138 mmol/L (135-145)
[2022-04-25] MEDS: Nystatin Powder 15 GM BOTTLE 1 APPL TOPICAL ×3 (08:38→21:43)
--- NOTE | 2022-04-25 14:25 | P.PNIM_ITS ---
Subjective Subjective Date of Service: 04/25/22 Interval History: Seen in follow-up for decompensated congestive heart failure, resistant E coli UTI, and SVT Interval history: Patient has no complaints. Sitting up comfortably eating breakfast in bed Review of Systems General: No fevers, malaise, unintentional weight loss HEENT: No blurred vision, diplopia. No sore throat, nasal congestion, rhinorrhea, sinus pain, ear pain Cardiovascular: No chest pain, palpitations, or leg edema Respiratory: No shortness of breath, wheezing, cough GI: No abdominal pain, nausea, vomiting, diarrhea, constipation, melena, hematochezia : No dysuria, hematuria, increased urinary frequency, decreased urinary output MSK: No myalgia, back pain Neuro: No headaches, weakness, paresthesias Skin: No rashes or lesions Physical Exam Vital Signs: Vital Signs: Last Vital Signs Temp 98.2 F 04/25/22 11:21 Pulse 70 04/25/22 11:21 Resp 18 04/25/22 11:21 BP 125/83 04/25/22 11:21 Pulse Ox 98 04/25/22 11:21 O2 Del Method 04/25/22 11:21 O2 Flow Rate 3 04/24/22 03:08 FiO2 30 04/10/22 07:00 Oxygen Flow Rate 30 04/10/22 05:25 BMI result Body Mass Index 26.4 Constitutional - Awake and Alert, No apparent distress Eyes - PERRLA, EOMI Cardiovascular - S1S2, RRR, No edema Respiratory - Normal lung expansion, Normal respiratory effort, No respiratory distress, CTA bilaterally Gastrointestinal - NT / ND; +BS; No rebound or guarding Extremities - no calf tenderness bilaterally, no swelling Skin - Warm/Dry Neurological - Alert & oriented x3 Objective Data Active Medications Acetaminophen (Acetaminophen 325 Mg Tablet) 650 mg PO Q6H PRN PRN Reason: Pain, Mild (Pain Scale 1-3) Last Admin: 04/24/22 16:54 Dose: 650 mg Documented By: CHIN Benzonatate (Benzonatate 100 Mg Capsule) 100 mg PO TID PRN PRN Reason: Cough Last Admin: 02/22/22 16:03 Dose: 100 mg Documented By: BOGDAN Bumetanide (Bumetanide 1 Mg Tablet) 1 mg PO DAILY [facility]; Protocol Last Admin: 04/25/22 08:36 Dose: 1 mg Documented By: REBECCA Carvedilol (Carvedilol 12.5 Mg Tablet) 12.5 mg PO BID [facility]; Protocol Last Admin: 04/25/22 08:36 Dose: 12.5 mg Documented By: REBECCA Digoxin (Digoxin 0.125 Mg Tablet) 0.125 mg PO Q2D [facility] Last Admin: 04/24/22 11:40 Dose: 0.125 mg Documented By: REBECCA Docusate Sodium (Docusate Sodium 100 Mg Capsule) 100 mg PO BEDTIME PRN PRN Reason: Constipation Folic Acid (Folic Acid 1 Mg Tablet) 1 mg PO DAILY [facility] Last Admin: 04/25/22 08:36 Dose: 1 mg Documented By: REBECCA Magnesium Oxide (Magnesium Oxide 400 Mg Tablet) 400 mg PO BIDWM [facility] Last Admin: 04/25/22 08:36 Dose: 400 mg Documented By: REBECCA Melatonin (Melatonin 3 Mg Tablet) 3 mg PO BEDTIME PRN PRN Reason: Insomnia Last Admin: 04/22/22 20:46 Dose: 3 mg Documented By: BOGDAN Nystatin (Nystatin Powder 15 Gm Bottle) 1 appl TOPICAL TID [facility]; Protocol Last Admin: 04/25/22 08:38 Dose: 1 appl Documented By: REBECCA Omeprazole (Omeprazole 20 Mg Capsule.Dr) 20 mg PO DAILY@0630 [facility] Last Admin: 04/25/22 05:44 Dose: 20 mg Documented By: CRISTOFER Ondansetron HCl (Ondansetron Hcl 4 Mg/2 Ml Vial) 4 mg IVPUSH Q8H PRN PRN Reason: Nausea and Vomiting Last Admin: 04/24/22 20:42 Dose: 4 mg Documented By: CRISTOFER Pharmacy Consult (Consult Rx Perform Med Rec) 1 each MISCELLANE ONCE PRN PRN Reason: Consult order Rivaroxaban (Rivaroxaban 15 Mg Tablet) 15 mg PO DAILY@1700 [facility] Last Admin: 04/24/22 16:47 Dose: 15 mg Documented By: CHIN Sodium Chloride (0.9 % Sodium Chloride Flush 3 Ml Syringe) 3 ml IVFLUSH QSHIFT [facility] Last Admin: 04/25/22 08:37 Dose: 3 ml Documented By: REBECCA Tamsulosin HCl (Tamsulosin Hcl 0.4 Mg Capsule) 0.8 mg PO DAILY [facility] Last Admin: 04/25/22 08:36 Dose: 0.8 mg Documented By: REBECCA Trazodone HCl (Trazodone Hcl 25 Mg Halftab) 12.5 mg PO BID PRN PRN Reason: Pain, Mild (Pain Scale 1-3) Last Admin: 04/23/22 07:14 Dose: 12.5 mg Documented By: BETY Labs CBC & Chem 7: 04/11/22 03:34 04/25/22 08:02 Labs: Laboratory Results - last 24 hr 04/25/22 08:02 Anion Gap 11 L Estim Creat Clear Calc 57.4 Estimated GFR > 60 Random Glucose 83 Calcium 9.3 D Assessment and Plan (1) Acute on chronic congestive heart failure: Status: Acute Plan 77yo M with hx chronic HFrEF, AF s/p PPM 2019 AC on rivaroxaban, CKD3, unspecified dementia, brought in after falling [place] the [place] while intoxicated and developing an open anal wound with fecal drainage admitted for perirectal perforation/cellulitis. He was transferred to intensive care unit overnight of 04/09 for acute hypoxia with pulmonary edema secondary to increased fluid overload,? AFib with RVR briefly requiring BiPAP support for respiratory effort and not for hypercapnia.? He was diuressed with good effect and ultimately taking off bid ? NSVT asymptomatic add magnesium levels daily magnesium continue carvedilol to 12.5 b.i.d,digoxin. Keep on telemetry Resistant E. coli UTI completed antibiotics. Acute respiratory failure with hypoxia due to heart failure resolved. decompensated? acute on chronic systolic heart failure EF 15%, required IV diuresis in ICU, p.o. daily Bumex 1mg Drowsiness resolved ABG was fine,? he is more alert, avoid sedative medications Perirectal perforation/cellulitis fecal drainage through open perianal wound Persists, cellulitis resolved. Continue perianal hygiene, wound care ?no acute issues r/t perforation Urinary retention prn bladder scan, straight cath PRN bladder scan seems fine freddie on CKD3,hyponatremia hyperkalemia ,AGMA,low bicarb resolved with bicarb drip. follow BMP continue to moniter ?generalized pain ?continue Tylenol and prn trazodone recommend out of bed to chair ?Permanent AFIB ?rate controlled, continue, continue Xarelto Agitation, hallucinations no new episodes consider zyprexa or seroquel PRN avoid seadtive meds. ?DVT prophylaxis Rivaroxaban DNR/DNI need for inaptient: awiting safe discharge plan Time Spent With Patient Time: Total time managing care of this patient today 20 minutes. Quality Stroke Does the patient have a stroke diagnosis?: No VTE Prior VTE?: No VTE Risk Level:: Medical - moderate - high VTE Device Contraindication: N/A - Device Ordered VTE Drug Contraindication: Treatment Not Indicated
[2022-04-25] MEDS: Rivaroxaban 15 MG TABLET PO (17:52)
[2022-04-26] MEDS: 0.9 % Sodium Chloride Flush 3 ML SYRINGE IVFLUSH ×4 (00:03→20:02)
[2022-04-26 03:37] VITALS: BP 124/90; PULSE 65; RESP 18; TEMP 36.6; O2SAT 95
[2022-04-26] MEDS: Omeprazole 20 MG CAPSULE.DR PO (05:52)
[2022-04-26 07:53] VITALS: PULSE 88; RESP 16; TEMP 36.4; O2SAT 94
[2022-04-26] MEDS: Acetaminophen 325 MG TABLET 650 MG PO ×2 (10:12→19:53)
[2022-04-26] MEDS: carvediloL 12.5 MG TABLET PO ×2 (10:12→19:53)
[2022-04-26] MEDS: Tamsulosin HCL 0.4 MG CAPSULE 0.8 MG PO (10:13)
[2022-04-26] MEDS: Folic Acid 1 MG TABLET PO (10:13)
[2022-04-26] MEDS: Bumetanide 1 MG TABLET PO (10:13)
[2022-04-26] MEDS: Magnesium Oxide 400 MG TABLET PO ×2 (10:14→16:48)
[2022-04-26] MEDS: Nystatin Powder 15 GM BOTTLE 1 APPL TOPICAL ×3 (10:14→22:08)
[2022-04-26] MEDS: Digoxin 0.125 MG TABLET PO (10:17)
[2022-04-26 12:00] VITALS: BP 127/91; PULSE 89; RESP 16; TEMP 36.2; O2SAT 95
--- NOTE | 2022-04-26 14:46 | MHC.CM.PN ---
Addendum entered by Brooklyn Garber 04/26/22 14:46: tiger sent to daniel gann to check status of [facility] Original Note: pt ready for dc checking on status of [facility]
--- NOTE | 2022-04-26 15:29 | HO.PM.IMPN ---
Subjective Subjective Date of Service: 04/26/22 Interval History: seen and examined this morning follow up for placement no overnight events Review of Systems Review of Systems: Yes all other systems are reviewed and are negative Constitutional Constitutional: Denies chills and Denies fever(s) Cardiovascular Cardiovascular: Denies chest pain, Denies palpitations and Denies dyspnea Respiratory Respiratory: Denies cough and Denies dyspnea Endocrine Endocrine: Denies palpitations Physical Exam Vital Signs: Vital Signs: Last Vital Signs Temp 97.2 F 04/26/22 12:00 Pulse 89 04/26/22 12:00 Resp 16 04/26/22 12:00 BP 127/91 H 04/26/22 12:00 Pulse Ox 95 04/26/22 12:00 O2 Del Method 04/26/22 12:00 O2 Flow Rate 2 04/26/22 03:37 FiO2 30 04/10/22 07:00 Oxygen Flow Rate 30 04/10/22 05:25 BMI result Body Mass Index 26.4 Const: General: comfortable, alert and awake Nutritional Appearance: average body habitus Resp: Effort & Inspection: normal respiratory effort and able to speak in complete sentences Auscultation: clear to auscultation bilaterally Cardio: Rate: regular rate Heart sounds: S1 normal heart sound present and S2 normal heart sound present GI: Palpation (GI): Soft to palpation and nontender Extrem: General: Yes no pedal edema Objective Data Active Medications Acetaminophen (Acetaminophen 325 Mg Tablet) 650 mg PO Q6H PRN PRN Reason: Pain, Mild (Pain Scale 1-3) Last Admin: 04/26/22 10:12 Dose: 650 mg Documented By: MONISHA Benzonatate (Benzonatate 100 Mg Capsule) 100 mg PO TID PRN PRN Reason: Cough Last Admin: 02/22/22 16:03 Dose: 100 mg Documented By: BOGDAN Bumetanide (Bumetanide 1 Mg Tablet) 1 mg PO DAILY [facility]; Protocol Last Admin: 04/26/22 10:13 Dose: 1 mg Documented By: MONISHA Carvedilol (Carvedilol 12.5 Mg Tablet) 12.5 mg PO BID [facility]; Protocol Last Admin: 04/26/22 10:12 Dose: 12.5 mg Documented By: MONISHA Digoxin (Digoxin 0.125 Mg Tablet) 0.125 mg PO Q2D [facility] Last Admin: 04/26/22 10:17 Dose: 0.125 mg Documented By: MONISHA Docusate Sodium (Docusate Sodium 100 Mg Capsule) 100 mg PO BEDTIME PRN PRN Reason: Constipation Folic Acid (Folic Acid 1 Mg Tablet) 1 mg PO DAILY [facility] Last Admin: 04/26/22 10:13 Dose: 1 mg Documented By: MONISHA Magnesium Oxide (Magnesium Oxide 400 Mg Tablet) 400 mg PO BIDWM [facility] Last Admin: 04/26/22 10:14 Dose: 400 mg Documented By: MONISHA Melatonin (Melatonin 3 Mg Tablet) 3 mg PO BEDTIME PRN PRN Reason: Insomnia Last Admin: 04/22/22 20:46 Dose: 3 mg Documented By: BOGDAN Nystatin (Nystatin Powder 15 Gm Bottle) 1 appl TOPICAL TID [facility]; Protocol Last Admin: 04/26/22 10:14 Dose: 1 appl Documented By: MONISHA Omeprazole (Omeprazole 20 Mg Capsule.Dr) 20 mg PO DAILY@0630 [facility] Last Admin: 04/26/22 05:52 Dose: 20 mg Documented By: LIU Ondansetron HCl (Ondansetron Hcl 4 Mg/2 Ml Vial) 4 mg IVPUSH Q8H PRN PRN Reason: Nausea and Vomiting Last Admin: 04/24/22 20:42 Dose: 4 mg Documented By: CRISTOFER Pharmacy Consult (Consult Rx Perform Med Rec) 1 each MISCELLANE ONCE PRN PRN Reason: Consult order Rivaroxaban (Rivaroxaban 15 Mg Tablet) 15 mg PO DAILY@1700 [facility] Last Admin: 04/25/22 17:52 Dose: 15 mg Documented By: THOMAS Sodium Chloride (0.9 % Sodium Chloride Flush 3 Ml Syringe) 3 ml IVFLUSH QSHIFT [facility] Last Admin: 04/26/22 10:14 Dose: 3 ml Documented By: MONISHA Tamsulosin HCl (Tamsulosin Hcl 0.4 Mg Capsule) 0.8 mg PO DAILY [facility] Last Admin: 04/26/22 10:13 Dose: 0.8 mg Documented By: MONISHA Trazodone HCl (Trazodone Hcl 25 Mg Halftab) 12.5 mg PO BID PRN PRN Reason: Pain, Mild (Pain Scale 1-3) Last Admin: 04/23/22 07:14 Dose: 12.5 mg Documented By: BETY Labs CBC & Chem 7: 04/11/22 03:34 04/25/22 08:02 Assessment and Plan (1) NSVT (nonsustained ventricular tachycardia): Status: Acute Plan 77yo M with hx chronic HFrEF, AF s/p PPM 2019 AC on rivaroxaban, CKD3, unspecified dementia, brought in after falling in the [place] while intoxicated and developing an open anal wound with fecal drainage admitted for perirectal perforation/cellulitis. He was transferred to intensive care unit overnight of 04/09 for acute hypoxia with pulmonary edema secondary to increased fluid overload,? AFib with RVR briefly requiring BiPAP support for respiratory effort and not for hypercapnia.? He was diuressed with good effect and ultimately taking off bid ? NSVT asymptomatic daily magnesium continue carvedilol to 12.5 b.i.d, digoxin Keep on telemetry Resistant E. coli UTI completed antibiotics. Acute respiratory failure with hypoxia due to heart failure resolved. decompensated? acute on chronic systolic heart failure EF 15%, required IV diuresis in ICU, p.o. daily Bumex 1mg Drowsiness resolved ABG was fine,? he is more alert, avoid sedative medications Perirectal perforation/cellulitis fecal drainage through open perianal wound Persists, cellulitis resolved. Continue perianal hygiene, wound care ?no acute issues r/t perforation Urinary retention prn bladder scan, straight cath PRN bladder scan seems fine freddie on CKD3,hyponatremia hyperkalemia ,AGMA,low bicarb resolved with bicarb drip. follow BMP continue to moniter ?generalized pain ?continue Tylenol and prn trazodone recommend out of bed to chair ?Permanent AFIB ?rate controlled, continue, continue Xarelto Agitation, hallucinations no new episodes consider zyprexa or seroquel PRN avoid seadtive meds. ?DVT prophylaxis Rivaroxaban DNR/DNI need for inaptient: awiting safe discharge plan Time Spent With Patient Time: Total time managing care of this patient today ____ minutes. Quality Stroke Does the patient have a stroke diagnosis?: No VTE Prior VTE?: No VTE Risk Level:: Medical - moderate - high VTE Device Contraindication: N/A - Device Ordered VTE Drug Contraindication: Treatment Not Indicated
[2022-04-26 15:33] VITALS: BP 106/72; PULSE 122; RESP 17; TEMP 36.3; O2SAT 94
[2022-04-26] MEDS: Rivaroxaban 15 MG TABLET PO (16:47)
[2022-04-26 18:59] VITALS: BP 118/77; PULSE 60; RESP 18; TEMP 36.5; O2SAT 93
[2022-04-26] MEDS: Melatonin 3 MG TABLET PO (19:53)
[2022-04-26 23:49] VITALS: BP 118/85; PULSE 68; RESP 18; TEMP 36.3; O2SAT 99
[2022-04-27 03:57] VITALS: BP 107/78; PULSE 75; RESP 16; TEMP 36.5; O2SAT 98
[2022-04-27] MEDS: Omeprazole 20 MG CAPSULE.DR PO (06:02)
[2022-04-27 07:48] VITALS: BP 128/89; PULSE 64; RESP 12; TEMP 36.3; O2SAT 95
[2022-04-27] MEDS: Tamsulosin HCL 0.4 MG CAPSULE 0.8 MG PO (08:14)
[2022-04-27] MEDS: carvediloL 12.5 MG TABLET PO ×2 (08:15→20:31)
[2022-04-27] MEDS: 0.9 % Sodium Chloride Flush 3 ML SYRINGE IVFLUSH ×3 (08:15→20:34)
[2022-04-27] MEDS: Bumetanide 1 MG TABLET PO (08:15)
[2022-04-27] MEDS: Magnesium Oxide 400 MG TABLET PO ×2 (08:15→15:56)
[2022-04-27] MEDS: Folic Acid 1 MG TABLET PO (08:15)
[2022-04-27] MEDS: Nystatin Powder 15 GM BOTTLE 1 APPL TOPICAL ×3 (08:15→20:41)
[2022-04-27 11:36] VITALS: BP 121/91; PULSE 70; RESP 12; TEMP 36.4; O2SAT 90
--- NOTE | 2022-04-27 14:07 | P.PNIM_ITS ---
Subjective Subjective Date of Service: 04/27/22 Interval History: seen and examined this morning follow up multiple issues no documented overnight events no specific complaints this morning Review of Systems Review of Systems: Yes all other systems are reviewed and are negative Constitutional Constitutional: Denies chills and Denies fever(s) Cardiovascular Cardiovascular: Denies chest pain Gastrointestinal Gastrointestinal: Denies abdominal pain Physical Exam Vital Signs: Vital Signs: Last Vital Signs Temp 97.5 F 04/27/22 11:36 Pulse 70 04/27/22 11:36 Resp 12 04/27/22 11:36 BP 121/91 H 04/27/22 11:36 Pulse Ox 90 L 04/27/22 11:36 O2 Del Method 04/27/22 11:36 O2 Flow Rate 2 04/26/22 03:37 FiO2 30 04/10/22 07:00 Oxygen Flow Rate 30 04/10/22 05:25 BMI result Body Mass Index 26.4 Const: General: comfortable, alert and awake Nutritional Appearance: aver age body habitus Resp: Effort & Inspection: normal respiratory effort and able to speak in complete sentences Cardio: Rate: regular rate Heart sounds: S1 normal heart sound present and S2 normal heart sound present GI: Palpation (GI): Soft to palpation and nontender Extrem: General: Yes no pedal edema Objective Data Active Medications Acetaminophen (Acetaminophen 325 Mg Tablet) 650 mg PO Q6H PRN PRN Reason: Pain, Mild (Pain Scale 1-3) Last Admin: 04/26/22 19:53 Dose: 650 mg Documented By: ARNULFO Benzonatate (Benzonatate 100 Mg Capsule) 100 mg PO TID PRN PRN Reason: Cough Last Admin: 02/22/22 16:03 Dose: 100 mg Documented By: BOGDAN Bumetanide (Bumetanide 1 Mg Tablet) 1 mg PO DAILY [facility]; Protocol Last Admin: 04/27/22 08:15 Dose: 1 mg Documented By: KOBY Carvedilol (Carvedilol 12.5 Mg Tablet) 12.5 mg PO BID [facility]; Protocol Last Admin: 04/27/22 08:15 Dose: 12.5 mg Documented By: KOBY Digoxin (Digoxin 0.125 Mg Tablet) 0.125 mg PO Q2D [facility] Last Admin: 04/26/22 10:17 Dose: 0.125 mg Documented By: MONISHA Docusate Sodium (Docusate Sodium 100 Mg Capsule) 100 mg PO BEDTIME PRN PRN Reason: Constipation Folic Acid (Folic Acid 1 Mg Tablet) 1 mg PO DAILY [facility] Last Admin: 04/27/22 08:15 Dose: 1 mg Documented By: KOBY Magnesium Oxide (Magnesium Oxide 400 Mg Tablet) 400 mg PO BIDWM [facility] Last Admin: 04/27/22 08:15 Dose: 400 mg Documented By: KOBY Melatonin (Melatonin 3 Mg Tablet) 3 mg PO BEDTIME PRN PRN Reason: Insomnia Last Admin: 04/26/22 19:53 Dose: 3 mg Documented By: ARNULFO Nystatin (Nystatin Powder 15 Gm Bottle) 1 appl TOPICAL TID [facility]; Protocol Last Admin: 04/27/22 08:15 Dose: 1 appl Documented By: KOBY Omeprazole (Omeprazole 20 Mg Capsule.Dr) 20 mg PO DAILY@0630 [facility] Last Admin: 04/27/22 06:02 Dose: 20 mg Documented By: ARNULFO Ondansetron HCl (Ondansetron Hcl 4 Mg/2 Ml Vial) 4 mg IVPUSH Q8H PRN PRN Reason: Nausea and Vomiting Last Admin: 04/24/22 20:42 Dose: 4 mg Documented By: CRISTOFER Pharmacy Consult (Consult Rx Perform Med Rec) 1 each MISCELLANE ONCE PRN PRN Reason: Consult order Rivaroxaban (Rivaroxaban 15 Mg Tablet) 15 mg PO DAILY@1700 [facility] Last Admin: 04/26/22 16:47 Dose: 15 mg Documented By: MONISHA Sodium Chloride (0.9 % Sodium Chloride Flush 3 Ml Syringe) 3 ml IVFLUSH QSHIFT [facility] Last Admin: 04/27/22 08:15 Dose: 3 ml Documented By: KOBY Tamsulosin HCl (Tamsulosin Hcl 0.4 Mg Capsule) 0.8 mg PO DAILY [facility] Last Admin: 04/27/22 08:14 Dose: 0.8 mg Documented By: KOBY Trazodone HCl (Trazodone Hcl 25 Mg Halftab) 12.5 mg PO BID PRN PRN Reason: Pain, Mild (Pain Scale 1-3) Last Admin: 04/23/22 07:14 Dose: 12.5 mg Documented By: BETY Labs CBC & Chem 7: 04/11/22 03:34 04/25/22 08:02 Assessment and Plan (1) NSVT (nonsustained ventricular tachycardia): Status: Acute Plan 77yo M with hx chronic HFrEF, AF s/p PPM 2019 AC on rivaroxaban, CKD3, unspecified dementia, brought in after falling in the [place] while intoxicated and developing an open anal wound with fecal drainage admitted for perirectal perforation/cellulitis. He was transferred to intensive care unit overnight of 04/09 for acute hypoxia with pulmonary edema secondary to increased fluid overload,? AFib with RVR briefly requiring BiPAP support for respiratory effort and not for hypercapnia.? He was diuressed with good effect and ultimately taking off bid ? NSVT asymptomatic daily magnesium continue carvedilol 12.5 b.i.d, digoxin Keep on telemetry Resistant E. coli UTI completed antibiotics. Acute respiratory failure with hypoxia due to heart failure resolved. acute on chronic systolic heart failure EF 15%, required IV diuresis in ICU, no on p.o. daily Bumex 1mg Drowsiness resolved ABG was fine,? he is more alert, avoid sedative medications Perirectal perforation/cellulitis fecal drainage through open perianal wound Persists, cellulitis resolved. Continue perianal hygiene, wound care no acute issues r/t perforation Urinary retention prn bladder scan, straight cath PRN bladder scan seems fine freddie on CKD3,hyponatremia hyperkalemia ,AGMA,low bicarb resolved with bicarb drip. follow BMP continue to monitor Permanent AFIB rate controlled, continue metoprolol, digoxin, continue Xarelto Agitation, hallucinations no new episodes consider zyprexa or seroquel PRN avoid seadtive meds. DVT prophylaxis Rivaroxaban DNR/DNI attending - dr. prieto need for inpatient: awaiting safe discharge plan Time Spent With Patient Time: Total time managing care of this patient today ____ minutes. Quality Stroke Does the patient have a stroke diagnosis?: No VTE Prior VTE?: No VTE Risk Level:: Medical - moderate - high VTE Device Contraindication: N/A - Device Ordered VTE Drug Contraindication: Treatment Not Indicated
[2022-04-27 15:23] VITALS: BP 119/77; PULSE 75; RESP 18; TEMP 37.1; O2SAT 92
[2022-04-27] MEDS: Rivaroxaban 15 MG TABLET PO (15:56)
[2022-04-27 19:25] VITALS: BP 146/82; PULSE 67; RESP 19; TEMP 37.1; O2SAT 94
[2022-04-27] MEDS: Acetaminophen 325 MG TABLET 650 MG PO (20:31)
[2022-04-27] MEDS: Melatonin 3 MG TABLET PO (20:33)
[2022-04-27 23:27] VITALS: BP 124/80; PULSE 70; RESP 16; TEMP 36.4; O2SAT 96
[2022-04-28 03:28] VITALS: BP 124/82; PULSE 62; RESP 18; TEMP 36.5; O2SAT 96
[2022-04-28] MEDS: Omeprazole 20 MG CAPSULE.DR PO (05:59)
[2022-04-28 07:48] VITALS: BP 128/91; PULSE 65; RESP 12; TEMP 36.4; O2SAT 98
[2022-04-28] MEDS: Bumetanide 1 MG TABLET PO (08:21)
[2022-04-28] MEDS: Folic Acid 1 MG TABLET PO (08:21)
[2022-04-28] MEDS: Nystatin Powder 15 GM BOTTLE 1 APPL TOPICAL ×2 (08:22→16:15)
[2022-04-28] MEDS: carvediloL 12.5 MG TABLET PO ×2 (08:22→21:15)
[2022-04-28] MEDS: 0.9 % Sodium Chloride Flush 3 ML SYRINGE IVFLUSH ×2 (08:22→16:15)
[2022-04-28] MEDS: Magnesium Oxide 400 MG TABLET PO ×2 (08:22→16:15)
[2022-04-28] MEDS: Tamsulosin HCL 0.4 MG CAPSULE 0.8 MG PO (08:22)
[2022-04-28] MEDS: Digoxin 0.125 MG TABLET PO (08:25)
[2022-04-28 11:14] VITALS: BP 120/84; PULSE 65; RESP 12; TEMP 36.4; O2SAT 98
[2022-04-28] MEDS: traZODone HCL 25 MG HALFTAB 12.5 MG PO (11:16)
[2022-04-28 15:21] VITALS: BP 135/84; PULSE 63; RESP 24; TEMP 36.4; O2SAT 97
[2022-04-28] MEDS: Rivaroxaban 15 MG TABLET PO (16:15)
--- NOTE | 2022-04-28 17:58 | HO.PM.IMPN ---
Subjective Subjective Date of Service: 04/28/22 Interval History: seen and examined this morning follow up for placement awake, alert, no specific complaints Review of Systems Review of Systems: Yes all other systems are reviewed and are negative Constitutional Constitutional: Denies chills and Denies fever(s) Cardiovascular Cardiovascular: Denies chest pain Gastrointestinal Gastrointestinal: Denies abdominal pain Physical Exam Vital Signs: Vital Signs: Last Vital Signs Temp 97.5 F 04/28/22 15:21 Pulse 63 04/28/22 15:21 Resp 24 H 04/28/22 15:21 BP 135/84 04/28/22 15:21 Pulse Ox 97 04/28/22 15:21 O2 Del Method 04/28/22 15:21 O2 Flow Rate 2 04/26/22 03:37 FiO2 30 04/10/22 07:00 Oxygen Flow Rate 30 04/10/22 05:25 BMI result Body Mass Index 26.4 Const: General: comfortable, alert and awake Nutritional Appearance: average body habitus Resp: Effort & Inspection: normal respiratory effort and able to speak in complete sentences Auscultation: clear to auscultation bilaterally Cardio: Rate: regular rate Heart sounds: S1 normal heart sound present and S2 normal heart sound present GI: Palpation (GI): Soft to palpation and nontender Extrem: General: Yes no pedal edema Objective Data Active Medications Acetaminophen (Acetaminophen 325 Mg Tablet) 650 mg PO Q6H PRN PRN Reason: Pain, Mild (Pain Scale 1-3) Last Admin: 04/27/22 20:31 Dose: 650 mg Documented By: ARNULFO Benzonatate (Benzonatate 100 Mg Capsule) 100 mg PO TID PRN PRN Reason: Cough Last Admin: 02/22/22 16:03 Dose: 100 mg Documented By: BOGDAN Bumetanide (Bumetanide 1 Mg Tablet) 1 mg PO DAILY [facility]; Protocol Last Admin: 04/28/22 08:21 Dose: 1 mg Documented By: KOBY Carvedilol (Carvedilol 12.5 Mg Tablet) 12.5 mg PO BID [facility]; Protocol Last Admin: 04/28/22 08:22 Dose: 12.5 mg Documented By: KOBY Digoxin (Digoxin 0.125 Mg Tablet) 0.125 mg PO Q2D [facility] Last Admin: 04/28/22 08:25 Dose: 0.125 mg Documented By: KOBY Docusate Sodium (Docusate Sodium 100 Mg Capsule) 100 mg PO BEDTIME PRN PRN Reason: Constipation Folic Acid (Folic Acid 1 Mg Tablet) 1 mg PO DAILY [facility] Last Admin: 04/28/22 08:21 Dose: 1 mg Documented By: KOBY Magnesium Oxide (Magnesium Oxide 400 Mg Tablet) 400 mg PO BIDWM [facility] Last Admin: 04/28/22 16:15 Dose: 400 mg Documented By: KOBY Melatonin (Melatonin 3 Mg Tablet) 3 mg PO BEDTIME PRN PRN Reason: Insomnia Last Admin: 04/27/22 20:33 Dose: 3 mg Documented By: ARNULFO Nystatin (Nystatin Powder 15 Gm Bottle) 1 appl TOPICAL TID [facility]; Protocol Last Admin: 04/28/22 16:15 Dose: 1 appl Documented By: KOBY Omeprazole (Omeprazole 20 Mg Capsule.Dr) 20 mg PO DAILY@0630 [facility] Last Admin: 04/28/22 05:59 Dose: 20 mg Documented By: ARNULFO Ondansetron HCl (Ondansetron Hcl 4 Mg/2 Ml Vial) 4 mg IVPUSH Q8H PRN PRN Reason: Nausea and Vomiting Last Admin: 04/24/22 20:42 Dose: 4 mg Documented By: CRISTOFER Pharmacy Consult (Consult Rx Perform Med Rec) 1 each MISCELLANE ONCE PRN PRN Reason: Consult order Rivaroxaban (Rivaroxaban 15 Mg Tablet) 15 mg PO DAILY@1700 [facility] Last Admin: 04/28/22 16:15 Dose: 15 mg Documented By: KOBY Sodium Chloride (0.9 % Sodium Chloride Flush 3 Ml Syringe) 3 ml IVFLUSH QSHIFT [facility] Last Admin: 04/28/22 16:15 Dose: 3 ml Documented By: KOBY Tamsulosin HCl (Tamsulosin Hcl 0.4 Mg Capsule) 0.8 mg PO DAILY [facility] Last Admin: 04/28/22 08:22 Dose: 0.8 mg Documented By: KOBY Trazodone HCl (Trazodone Hcl 25 Mg Halftab) 12.5 mg PO BID PRN PRN Reason: Pain, Mild (Pain Scale 1-3) Last Admin: 04/28/22 11:16 Dose: 12.5 mg Documented By: FOGARTB Labs 04/11/22 03:34 04/25/22 08:02 Assessment and Plan (1) NSVT (nonsustained ventricular tachycardia): Status: Acute (2) Infection due to ESBL-producing Escherichia coli: Status: Acute Plan 77yo M with hx chronic HFrEF, AF s/p PPM 2019 AC on rivaroxaban, CKD3, unspecified dementia, brought in after falling [place] the [place] while intoxicated and developing an open anal wound with fecal drainage admitted for perirectal perforation/cellulitis. He was transferred to intensive care unit overnight of 04/09 for acute hypoxia with pulmonary edema secondary to increased fluid overload,? AFib with RVR briefly requiring BiPAP support for respiratory effort and not for hypercapnia.? He was diuressed with good effect and ultimately taking off bid ? no acute change NSVT asymptomatic daily magnesium continue carvedilol 12.5 b.i.d, digoxin Keep on telemetry Resistant E. coli UTI completed antibiotics. Acute respiratory failure with hypoxia due to heart failure resolved. acute on chronic systolic heart failure EF 15%, required IV diuresis in ICU, no on p.o. daily Bumex 1mg Drowsiness resolved avoid sedative medications Perirectal perforation/cellulitis fecal drainage through open perianal wound Persists, cellulitis resolved. Continue perianal hygiene, wound care no acute issues r/t perforation Urinary retention prn bladder scan, straight cath PRN bladder scan seems fine freddie on CKD3,hyponatremia hyperkalemia ,AGMA,low bicarb resolved with bicarb drip. follow BMP continue to monitor Permanent AFIB rate controlled, continue metoprolol, digoxin, continue Xarelto Agitation, hallucinations no new episodes consider zyprexa or seroquel PRN avoid seadtive meds. DVT prophylaxis Rivaroxaban DNR/DNI attending - dr. prieto need for inpatient: awaiting safe discharge plan Time Spent With Patient Time: Total time managing care of this patient today ____ minutes. Quality Stroke Does the patient have a stroke diagnosis?: No VTE Prior VTE?: No VTE Risk Level:: Medical - moderate - high VTE Device Contraindication: N/A - Device Ordered VTE Drug Contraindication: Treatment Not Indicated
[2022-04-28 19:09] VITALS: BP 113/78; PULSE 62; RESP 16; TEMP 36.6; O2SAT 96
[2022-04-28 23:05] VITALS: BP 125/85; PULSE 62; RESP 17; TEMP 36.6; O2SAT 98
[2022-04-29] VITALS (7 sets, daily range): BP systolic 104–132; BP diastolic 76–93; PULSE 68–100; RESP 15–18; TEMP 36.3–36.9; O2SAT 94–100
[2022-04-29] MEDS: 0.9 % Sodium Chloride Flush 3 ML SYRINGE IVFLUSH ×4 (00:07→20:16)
--- NOTE | 2022-04-29 00:08 | PC.NURSE ---
2100 Medication documented under day shift nurse due to error in logging in, corrected manually.
[2022-04-29] MEDS: Omeprazole 20 MG CAPSULE.DR PO (05:21)
[2022-04-29] MEDS: Bumetanide 1 MG TABLET PO (08:26)
[2022-04-29] MEDS: carvediloL 12.5 MG TABLET PO ×2 (08:27→20:15)
[2022-04-29] MEDS: Folic Acid 1 MG TABLET PO (08:27)
[2022-04-29] MEDS: Tamsulosin HCL 0.4 MG CAPSULE 0.8 MG PO (08:27)
[2022-04-29] MEDS: Nystatin Powder 15 GM BOTTLE 1 APPL TOPICAL ×3 (08:27→20:22)
[2022-04-29] MEDS: Magnesium Oxide 400 MG TABLET PO ×2 (09:44→16:19)
[2022-04-29] MEDS: Acetaminophen 325 MG TABLET 650 MG PO (09:53)
--- NOTE | 2022-04-29 11:23 | P.PNIM_ITS ---
Subjective Subjective Date of Service: 04/29/22 Interval History: seen and examined this morning follow up for placement awake, alert, no specific complaints Review of Systems Review of Systems: Yes all other systems are reviewed and are negative Constitutional Constitutional: Denies chills and Denies fever(s) Cardiovascular Cardiovascular: Denies chest pain Gastrointestinal Gastrointestinal: Denies abdominal pain Physical Exam Vital Signs: Vital Signs: Last Vital Signs Temp 97.8 F 04/29/22 07:51 Pulse 90 04/29/22 07:51 Resp 18 04/29/22 07:51 BP 104/87 04/29/22 07:51 Pulse Ox 98 04/29/22 07:51 O2 Del Method 04/29/22 07:51 O2 Flow Rate 2 04/29/22 07:51 FiO2 30 04/10/22 07:00 Oxygen Flow Rate 30 04/10/22 05:25 BMI result Body Mass Index 26.4 Appearing in no acute distress lung sounds are clear to auscultation heart regular rate rhythm, clear S1, S2 positive bowel sounds, abdomen is soft, nontender neuro patient is alert x3, no focal deficits Objective Data Active Medications Acetaminophen (Acetaminophen 325 Mg Tablet) 650 mg PO Q6H PRN PRN Reason: Pain, Mild (Pain Scale 1-3) Last Admin: 04/29/22 09:53 Dose: 650 mg Documented By: CODIE Benzonatate (Benzonatate 100 Mg Capsule) 100 mg PO TID PRN PRN Reason: Cough Last Admin: 02/22/22 16:03 Dose: 100 mg Documented By: BOGDAN Bumetanide (Bumetanide 1 Mg Tablet) 1 mg PO DAILY [facility]; Protocol Last Admin: 04/29/22 08:26 Dose: 1 mg Documented By: CODIE Carvedilol (Carvedilol 12.5 Mg Tablet) 12.5 mg PO BID [facility]; Protocol Last Admin: 04/29/22 08:27 Dose: 12.5 mg Documented By: CODIE Digoxin (Digoxin 0.125 Mg Tablet) 0.125 mg PO Q2D [facility] Last Admin: 04/28/22 08:25 Dose: 0.125 mg Documented By: KOBY Docusate Sodium (Docusate Sodium 100 Mg Capsule) 100 mg PO BEDTIME PRN PRN Reason: Constipation Folic Acid (Folic Acid 1 Mg Tablet) 1 mg PO DAILY [facility] Last Admin: 04/29/22 08:27 Dose: 1 mg Documented By: CODIE Magnesium Oxide (Magnesium Oxide 400 Mg Tablet) 400 mg PO BIDWM [facility] Last Admin: 04/29/22 09:44 Dose: 400 mg Documented By: CODIE Melatonin (Melatonin 3 Mg Tablet) 3 mg PO BEDTIME PRN PRN Reason: Insomnia Last Admin: 04/27/22 20:33 Dose: 3 mg Documented By: ARNULFO Nystatin (Nystatin Powder 15 Gm Bottle) 1 appl TOPICAL TID [facility]; Protocol Last Admin: 04/29/22 08:27 Dose: 1 appl Documented By: CODIE Omeprazole (Omeprazole 20 Mg Capsule.Dr) 20 mg PO DAILY@0630 [facility] Last Admin: 04/29/22 05:21 Dose: 20 mg Documented By: LINDA Ondansetron HCl (Ondansetron Hcl 4 Mg/2 Ml Vial) 4 mg IVPUSH Q8H PRN PRN Reason: Nausea and Vomiting Last Admin: 04/24/22 20:42 Dose: 4 mg Documented By: CRISTOFER Pharmacy Consult (Consult Rx Perform Med Rec) 1 each MISCELLANE ONCE PRN PRN Reason: Consult order Rivaroxaban (Rivaroxaban 15 Mg Tablet) 15 mg PO DAILY@1700 [facility] Last Admin: 04/28/22 16:15 Dose: 15 mg Documented By: KOBY Sodium Chloride (0.9 % Sodium Chloride Flush 3 Ml Syringe) 3 ml IVFLUSH QSHIFT [facility] Last Admin: 04/29/22 08:26 Dose: 3 ml Documented By: CODIE Tamsulosin HCl (Tamsulosin Hcl 0.4 Mg Capsule) 0.8 mg PO DAILY [facility] Last Admin: 04/29/22 08:27 Dose: 0.8 mg Documented By: CODIE Trazodone HCl (Trazodone Hcl 25 Mg Halftab) 12.5 mg PO BID PRN PRN Reason: Pain, Mild (Pain Scale 1-3) Last Admin: 04/28/22 11:16 Dose: 12.5 mg Documented By: KOBY Labs 04/11/22 03:34 04/25/22 08:02 Assessment and Plan (1) NSVT (nonsustained ventricular tachycardia): Status: Acute (2) Infection due to ESBL-producing Escherichia coli: Status: Acute Plan 77yo M with hx chronic HFrEF, AF s/p PPM 2019 AC on rivaroxaban, CKD3, unspecified dementia, brought in after falling [place] the [place] while intoxicated and developing an open anal wound with fecal drainage admitted for perirectal perforation/cellulitis. He was transferred to intensive care unit overnight of 04/09 for acute hypoxia with pulmonary edema secondary to increased fluid overload,? AFib with RVR briefly requiring BiPAP support for respiratory effort and not for hypercapnia.? He was diuressed with good effect and ultimately taking off bid ? no acute change NSVT asymptomatic daily magnesium continue carvedilol 12.5 b.i.d, digoxin Keep on telemetry Resistant E. coli UTI completed antibiotics. Acute respiratory failure with hypoxia due to heart failure resolved. acute on chronic systolic heart failure EF 15%, required IV diuresis in ICU, no on p.o. daily Bumex 1mg Drowsiness resolved avoid sedative medications Perirectal perforation/cellulitis fecal drainage through open perianal wound Persists, cellulitis resolved. Continue perianal hygiene, wound care no acute issues r/t perforation Urinary retention prn bladder scan, straight cath PRN bladder scan seems fine freddie on CKD3,hyponatremia hyperkalemia ,AGMA,low bicarb resolved with bicarb drip. follow BMP continue to monitor Permanent AFIB rate controlled, continue metoprolol, digoxin, continue Xarelto Agitation, hallucinations no new episodes consider zyprexa or seroquel PRN avoid seadtive meds. DVT prophylaxis Rivaroxaban DNR/DNI attending - dr. Belle need for inpatient: awaiting safe discharge plan Time Spent With Patient Time: Total time managing care of this patient today ____ minutes. Quality Stroke Does the patient have a stroke diagnosis?: No VTE Prior VTE?: No VTE Risk Level:: Medical - moderate - high VTE Device Contraindication: N/A - Device Ordered VTE Drug Contraindication: Treatment Not Indicated
[2022-04-29] MEDS: Rivaroxaban 15 MG TABLET PO (16:19)
--- NOTE | 2022-04-29 17:00 | PC.NURSE ---
At 16:43 pt has 6 beats of VT. Assessed pt: pt had no c/o chest pain, HR 65, O2 sat 97% 2L NC. 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 Continue monitoring.
[2022-04-29] MEDS: oxyCODONE HCl Immed Release 5 MG TABLET PO (20:15)
[2022-04-29] MEDS: Melatonin 3 MG TABLET PO (20:16)
[2022-04-30 03:15] VITALS: BP 116/81; PULSE 63; RESP 15; TEMP 36.2; O2SAT 97
[2022-04-30] MEDS: Omeprazole 20 MG CAPSULE.DR PO (06:04)
[2022-04-30 06:16] LABS: MANUAL DIFF FLAG NO
[2022-04-30 06:18] LABS: Basophils Percent Auto 0.4 % (0-2); Eosinophils Absolute Auto 0.1 X10*3/uL (0.0-0.4); Eosinophils Percent Auto 2.3 % (0-4); Hematocrit 34.1 % (42.0-52.0); Hemoglobin 10.5 g/dl (14.0-18.0); Imm Gran Abs Auto 0.02 X10*3/uL (0.00-0.03); Imm Gran Pct Auto 0.4 % (0.0-0.4); Lymphocytes Absolute Auto 2.3 X10*3/uL (1.2-4.9); Lymphocytes Percent Auto 42.7 % (20-40); Mean Corpuscular HGB Conc 30.8 g/dl (31.0-36.0); Mean Corpuscular Hemoglobin 28.4 pg (27.0-33.0); Mean Corpuscular Volume 92.2 fL (80.0-98.0); Mean Platelet Volume 10.9 fL (9.4-12.4); Monocytes Absolute Auto 0.9 X10*3/uL (0.1-1.2); Monocytes Percent Auto 16.4 % (2-11); Neutrophils Percent Auto 37.8 % (45-73); Platelet Count 200 X10*3/uL (160-400); Red Cell Distribution Width 15.8 % (11.0-16.0); White Blood Count 5.3 X10*3/uL (4.8-10.8)
[2022-04-30 06:49] LABS: Anion Gap 13 (12-20); Blood Urea Nitrogen 21 mg/dL (9-16); Carbon Dioxide 29 mmol/L (22-29); Chloride 98 mmol/L (96-108); Creatinine Clr Calc Pharmacy 61.3; Estimated Glomerular Filt Rate > 60; Glucose Random 83 mg/dL (60-115); Potassium 3.9 mmol/L (3.3-5.1); Sodium 136 mmol/L (135-145)
[2022-04-30 08:00] VITALS: BP 119/90; PULSE 64; RESP 18; TEMP 36.8
[2022-04-30] MEDS: Bumetanide 1 MG TABLET PO (09:41)
[2022-04-30] MEDS: carvediloL 12.5 MG TABLET PO ×2 (09:41→21:41)
[2022-04-30] MEDS: Tamsulosin HCL 0.4 MG CAPSULE 0.8 MG PO (09:41)
[2022-04-30] MEDS: Folic Acid 1 MG TABLET PO (09:41)
[2022-04-30] MEDS: Magnesium Oxide 400 MG TABLET PO ×2 (09:43→17:21)
[2022-04-30] MEDS: Nystatin Powder 15 GM BOTTLE 1 APPL TOPICAL ×2 (09:44→21:44)
[2022-04-30] MEDS: 0.9 % Sodium Chloride Flush 3 ML SYRINGE IVFLUSH ×2 (09:44→21:44)
[2022-04-30] MEDS: Digoxin 0.125 MG TABLET PO (09:47)
--- NOTE | 2022-04-30 11:42 | P.PNIM_ITS ---
Subjective Subjective Date of Service: 04/30/22 Interval History: seen and examined this morning follow up for placement awake, alert, no specific complaints Review of Systems Review of Systems: Yes all other systems are reviewed and are negative Constitutional Constitutional: Denies chills and Denies fever(s) Cardiovascular Cardiovascular: Denies chest pain Gastrointestinal Gastrointestinal: Denies abdominal pain Physical Exam Vital Signs: Vital Signs: Last Vital Signs Temp 98.2 F 04/30/22 08:00 Pulse 64 04/30/22 08:00 Resp 18 04/30/22 08:00 BP 119/90 H 04/30/22 08:00 Pulse Ox 97 04/30/22 03:15 O2 Del Method 04/30/22 08:00 O2 Flow Rate 3 04/30/22 03:15 FiO2 30 04/10/22 07:00 Oxygen Flow Rate 30 04/10/22 05:25 BMI result Body Mass Index 26.4 Appearing in no acute distress lung sounds are clear to auscultation heart regular rate rhythm, clear S1, S2 positive bowel sounds, abdomen is soft, nontender neuro patient is alert x3, no focal deficits Objective Data Active Medications Acetaminophen (Acetaminophen 325 Mg Tablet) 650 mg PO Q6H PRN PRN Reason: Pain, Mild (Pain Scale 1-3) Last Admin: 04/29/22 09:53 Dose: 650 mg Documented By: CODIE Benzonatate (Benzonatate 100 Mg Capsule) 100 mg PO TID PRN PRN Reason: Cough Last Admin: 02/22/22 16:03 Dose: 100 mg Documented By: BOGDAN Bumetanide (Bumetanide 1 Mg Tablet) 1 mg PO DAILY [facility]; Protocol Last Admin: 04/30/22 09:41 Dose: 1 mg Documented By: DEIRDRE Carvedilol (Carvedilol 12.5 Mg Tablet) 12.5 mg PO BID [facility]; Protocol Last Admin: 04/30/22 09:41 Dose: 12.5 mg Documented By: DEIRDRE Digoxin (Digoxin 0.125 Mg Tablet) 0.125 mg PO Q2D [facility] Last Admin: 04/30/22 09:47 Dose: 0.125 mg Documented By: DEIRDRE Docusate Sodium (Docusate Sodium 100 Mg Capsule) 100 mg PO BEDTIME PRN PRN Reason: Constipation Folic Acid (Folic Acid 1 Mg Tablet) 1 mg PO DAILY [facility] Last Admin: 04/30/22 09:41 Dose: 1 mg Documented By: DEIRDRE Magnesium Oxide (Magnesium Oxide 400 Mg Tablet) 400 mg PO BIDWM [facility] Last Admin: 04/30/22 09:43 Dose: 400 mg Documented By: DEIRDRE Melatonin (Melatonin 3 Mg Tablet) 3 mg PO BEDTIME PRN PRN Reason: Insomnia Last Admin: 04/29/22 20:16 Dose: 3 mg Documented By: LINDA Nystatin (Nystatin Powder 15 Gm Bottle) 1 appl TOPICAL TID [facility]; Protocol Last Admin: 04/30/22 09:44 Dose: 1 appl Documented By: DEIRDRE Omeprazole (Omeprazole 20 Mg Capsule.Dr) 20 mg PO DAILY@0630 [facility] Last Admin: 04/30/22 06:04 Dose: 20 mg Documented By: LINDA Ondansetron HCl (Ondansetron Hcl 4 Mg/2 Ml Vial) 4 mg IVPUSH Q8H PRN PRN Reason: Nausea and Vomiting Last Admin: 04/24/22 20:42 Dose: 4 mg Documented By: CRISTOFER Oxycodone HCl (Oxycodone Hcl Immed Release 5 Mg Tablet) 5 mg PO Q4H PRN PRN Reason: Pain, Moderate (Pain Scale 4-6 Last Admin: 04/29/22 20:15 Dose: 5 mg Documented By: LINDA Pharmacy Consult (Consult Rx Perform Med Rec) 1 each MISCELLANE ONCE PRN PRN Reason: Consult order Rivaroxaban (Rivaroxaban 15 Mg Tablet) 15 mg PO DAILY@1700 [facility] Last Admin: 04/29/22 16:19 Dose: 15 mg Documented By: CODIE Sodium Chloride (0.9 % Sodium Chloride Flush 3 Ml Syringe) 3 ml IVFLUSH QSHIFT [facility] Last Admin: 04/30/22 09:44 Dose: 3 ml Documented By: DEIRDRE Tamsulosin HCl (Tamsulosin Hcl 0.4 Mg Capsule) 0.8 mg PO DAILY [facility] Last Admin: 04/30/22 09:41 Dose: 0.8 mg Documented By: DEIRDRE Trazodone HCl (Trazodone Hcl 25 Mg Halftab) 12.5 mg PO BID PRN PRN Reason: Pain, Mild (Pain Scale 1-3) Last Admin: 04/28/22 11:16 Dose: 12.5 mg Documented By: KOBY Labs 04/30/22 05:39 04/30/22 05:39 Labs: Laboratory Results - last 24 hr 04/30/22 04/30/22 05:39 05:39 MCV 92.2 MCH 28.4 MCHC 30.8 L RDW 15.8 Plt Count 200 MPV 10.9 Immature Gran % (Auto) 0.4 Neut % (Auto) 37.8 L Lymph % (Auto) 42.7 H [place] % (Auto) 16.4 H Eos % (Auto) 2.3 Baso % (Auto) 0.4 Lymph # (Auto) 2.3 [place] # (Auto) 0.9 Eos # (Auto) 0.1 Baso # (Auto) 0.0 Abs Immat Gran (auto) 0.02 Absolute Neuts (auto) 2.0 Absolute Nucleated RBC 0.000 Nucleated RBC % (auto) 0.0 Anion Gap 13 Estim Creat Clear Calc 61.3 Estimated GFR > 60 Random Glucose 83 Calcium 9.0 Assessment and Plan (1) NSVT (nonsustained ventricular tachycardia): Status: Acute (2) Infection due to ESBL-producing Escherichia coli: Status: Acute Plan 77yo M with hx chronic HFrEF, AF s/p PPM 2019 AC on rivaroxaban, CKD3, unspecified dementia, brought in after falling in the [place] while intoxicated and developing an open anal wound with fecal drainage admitted for perirectal perforation/cellulitis. He was transferred to intensive care unit overnight of 04/09 for acute hypoxia with pulmonary edema secondary to increased fluid overload,? AFib with RVR briefly requiring BiPAP support for respiratory effort and not for hypercapnia.? He was diuressed with good effect and ultimately taking off bid ? NSVT asymptomatic daily magnesium continue carvedilol 12.5 b.i.d, digoxin Keep on telemetry Resistant E. coli UTI completed antibiotics. Acute respiratory failure with hypoxia due to heart failure resolved. acute on chronic systolic heart failure EF 15%, required IV diuresis in ICU, no on p.o. daily Bumex 1mg Drowsiness resolved avoid sedative medications Perirectal perforation/cellulitis fecal drainage through open perianal wound Persists, cellulitis resolved. Continue perianal hygiene, wound care no acute issues r/t perforation Urinary retention prn bladder scan, straight cath PRN bladder scan seems fine freddie on CKD3,hyponatremia hyperkalemia ,AGMA,low bicarb resolved with bicarb drip. follow BMP continue to monitor Permanent AFIB rate controlled, continue metoprolol, digoxin, continue Xarelto Agitation, hallucinations no new episodes consider zyprexa or seroquel PRN avoid seadtive meds. DVT prophylaxis Rivaroxaban DNR/DNI attending - dr. Belle need for inpatient: awaiting safe discharge plan Time Spent With Patient Time: Total time managing care of this patient today ____ minutes. Quality Stroke Does the patient have a stroke diagnosis?: No VTE Prior VTE?: No VTE Risk Level:: Medical - moderate - high VTE Device Contraindication: N/A - Device Ordered VTE Drug Contraindication: Treatment Not Indicated
[2022-04-30 11:47] VITALS: BP 115/87; PULSE 79; RESP 18; TEMP 36.9; O2SAT 96
[2022-04-30 15:17] VITALS: BP 121/85; PULSE 63; RESP 16; TEMP 36.9; O2SAT 98
[2022-04-30] MEDS: Rivaroxaban 15 MG TABLET PO (17:21)
[2022-04-30 19:33] VITALS: BP 135/87; PULSE 71; RESP 16; TEMP 36.6; O2SAT 98
[2022-04-30] MEDS: oxyCODONE HCl Immed Release 5 MG TABLET PO (21:41)
[2022-04-30 23:57] VITALS: BP 131/88; PULSE 72; RESP 15; TEMP 36.7; O2SAT 94
[2022-05-01] MEDS: oxyCODONE HCl Immed Release 5 MG TABLET PO (03:23)
[2022-05-01 03:26] VITALS: BP 136/88; PULSE 84; RESP 17; TEMP 36.6; O2SAT 94
[2022-05-01] MEDS: Omeprazole 20 MG CAPSULE.DR PO (06:10)
[2022-05-01 07:21] VITALS: BP 128/72; PULSE 89; RESP 20; TEMP 36.4; O2SAT 92
[2022-05-01] MEDS: 0.9 % Sodium Chloride Flush 3 ML SYRINGE IVFLUSH ×3 (08:04→21:09)
[2022-05-01] MEDS: Bumetanide 1 MG TABLET PO (08:05)
[2022-05-01] MEDS: carvediloL 12.5 MG TABLET PO ×2 (08:05→21:08)
[2022-05-01] MEDS: Folic Acid 1 MG TABLET PO (08:05)
[2022-05-01] MEDS: Tamsulosin HCL 0.4 MG CAPSULE 0.8 MG PO (08:05)
[2022-05-01] MEDS: Magnesium Oxide 400 MG TABLET PO ×2 (08:06→16:53)
[2022-05-01] MEDS: Nystatin Powder 15 GM BOTTLE 1 APPL TOPICAL ×3 (08:10→21:09)
[2022-05-01 11:07] VITALS: BP 116/89; PULSE 69; RESP 20; TEMP 36.3; O2SAT 93
--- NOTE | 2022-05-01 11:08 | HO.PM.IMPN ---
Subjective Subjective Date of Service: 05/01/22 Interval History: seen and examined this morning follow up for placement awake, alert, no specific complaints Review of Systems Review of Systems: Yes all other systems are reviewed and are negative Constitutional Constitutional: Denies chills and Denies fever(s) Cardiovascular Cardiovascular: Denies chest pain Gastrointestinal Gastrointestinal: Denies abdominal pain Physical Exam Vital Signs: Vital Signs: Last Vital Signs Temp 97.4 F 05/01/22 11:07 Pulse 69 05/01/22 11:07 Resp 20 05/01/22 11:07 BP 116/89 05/01/22 11:07 Pulse Ox 93 05/01/22 11:07 O2 Del Method 05/01/22 11:07 O2 Flow Rate 3.5 04/30/22 23:57 FiO2 30 04/10/22 07:00 Oxygen Flow Rate 30 04/10/22 05:25 BMI result Body Mass Index 26.4 Appearing in no acute distress lung sounds are clear to auscultation heart regular rate rhythm, clear S1, S2 positive bowel sounds, abdomen is soft, nontender neuro patient is alert x3, no focal deficits Objective Data Active Medications Acetaminophen (Acetaminophen 325 Mg Tablet) 650 mg PO Q6H PRN PRN Reason: Pain, Mild (Pain Scale 1-3) Last Admin: 04/29/22 09:53 Dose: 650 mg Documented By: CODIE Benzonatate (Benzonatate 100 Mg Capsule) 100 mg PO TID PRN PRN Reason: Cough Last Admin: 02/22/22 16:03 Dose: 100 mg Documented By: BOGDAN Bumetanide (Bumetanide 1 Mg Tablet) 1 mg PO DAILY [facility]; Protocol Last Admin: 05/01/22 08:05 Dose: 1 mg Documented By: MARISABEL Carvedilol (Carvedilol 12.5 Mg Tablet) 12.5 mg PO BID [facility]; Protocol Last Admin: 05/01/22 08:05 Dose: 12.5 mg Documented By: MARISABEL Digoxin (Digoxin 0.125 Mg Tablet) 0.125 mg PO Q2D [facility] Last Admin: 04/30/22 09:47 Dose: 0.125 mg Documented By: DEIRDRE Docusate Sodium (Docusate Sodium 100 Mg Capsule) 100 mg PO BEDTIME PRN PRN Reason: Constipation Folic Acid (Folic Acid 1 Mg Tablet) 1 mg PO DAILY [facility] Last Admin: 05/01/22 08:05 Dose: 1 mg Documented By: MARISABEL Magnesium Oxide (Magnesium Oxide 400 Mg Tablet) 400 mg PO BIDWM [facility] Last Admin: 05/01/22 08:06 Dose: 400 mg Documented By: MARISABEL Melatonin (Melatonin 3 Mg Tablet) 3 mg PO BEDTIME PRN PRN Reason: Insomnia Last Admin: 04/29/22 20:16 Dose: 3 mg Documented By: LINDA Nystatin (Nystatin Powder 15 Gm Bottle) 1 appl TOPICAL TID [facility]; Protocol Last Admin: 05/01/22 08:10 Dose: 1 appl Documented By: MARISABEL Omeprazole (Omeprazole 20 Mg Capsule.Dr) 20 mg PO DAILY@0630 [facility] Last Admin: 05/01/22 06:10 Dose: 20 mg Documented By: ARNULFO Ondansetron HCl (Ondansetron Hcl 4 Mg/2 Ml Vial) 4 mg IVPUSH Q8H PRN PRN Reason: Nausea and Vomiting Last Admin: 04/24/22 20:42 Dose: 4 mg Documented By: CRISTOFER Oxycodone HCl (Oxycodone Hcl Immed Release 5 Mg Tablet) 5 mg PO Q4H PRN PRN Reason: Pain, Moderate (Pain Scale 4-6 Last Admin: 05/01/22 03:23 Dose: 5 mg Documented By: ARNULFO Pharmacy Consult (Consult Rx Perform Med Rec) 1 each MISCELLANE ONCE PRN PRN Reason: Consult order Rivaroxaban (Rivaroxaban 15 Mg Tablet) 15 mg PO DAILY@1700 [facility] Last Admin: 04/30/22 17:21 Dose: 15 mg Documented By: DEIRDRE Sodium Chloride (0.9 % Sodium Chloride Flush 3 Ml Syringe) 3 ml IVFLUSH QSHIFT [facility] Last Admin: 05/01/22 08:04 Dose: 3 ml Documented By: MARISABEL Tamsulosin HCl (Tamsulosin Hcl 0.4 Mg Capsule) 0.8 mg PO DAILY [facility] Last Admin: 05/01/22 08:05 Dose: 0.8 mg Documented By: MARISABEL Trazodone HCl (Trazodone Hcl 25 Mg Halftab) 12.5 mg PO BID PRN PRN Reason: Pain, Mild (Pain Scale 1-3) Last Admin: 04/28/22 11:16 Dose: 12.5 mg Documented By: KOBY Labs 04/30/22 05:39 04/30/22 05:39 Assessment and Plan (1) NSVT (nonsustained ventricular tachycardia): Status: Acute (2) Infection due to ESBL-producing Escherichia coli: Status: Acute Plan 77yo M with hx chronic HFrEF, AF s/p PPM 2019 AC on rivaroxaban, CKD3, unspecified dementia, brought in after falling [place] the [place] while intoxicated and developing an open anal wound with fecal drainage admitted for perirectal perforation/cellulitis. He was transferred to intensive care unit overnight of 04/09 for acute hypoxia with pulmonary edema secondary to increased fluid overload,? AFib with RVR briefly requiring BiPAP support for respiratory effort and not for hypercapnia.? He was diuressed with good effect and ultimately taking off bid ? NSVT. no further episodes asymptomatic daily magnesium continue carvedilol 12.5 b.i.d, digoxin Keep on telemetry Resistant E. coli UTI completed antibiotics. Acute respiratory failure with hypoxia due to heart failure resolved. acute on chronic systolic heart failure EF 15%, required IV diuresis in ICU, no on p.o. daily Bumex 1mg Drowsiness resolved avoid sedative medications Perirectal perforation/cellulitis fecal drainage through open perianal wound Persists, cellulitis resolved. Continue perianal hygiene, wound care no acute issues r/t perforation Urinary retention prn bladder scan, straight cath PRN freddie on CKD3,hyponatremia hyperkalemia ,AGMA,low bicarb resolved with bicarb drip. follow BMP continue to monitor Permanent AFIB rate controlled, continue metoprolol, digoxin, continue Xarelto Agitation, hallucinations no new episodes consider zyprexa or seroquel PRN avoid sedative meds. DVT prophylaxis Rivaroxaban DNR/DNI attending - Dr. Barone need for inpatient: awaiting safe discharge plan Time Spent With Patient Time: Total time managing care of this patient today ____ minutes. Quality Stroke Does the patient have a stroke diagnosis?: No VTE Prior VTE?: No VTE Risk Level:: Medical - moderate - high VTE Device Contraindication: N/A - Device Ordered VTE Drug Contraindication: Treatment Not Indicated
--- NOTE | 2022-05-01 14:27 | MHC.CM.PN ---
per rounds bed search continues
[2022-05-01 15:05] VITALS: BP 115/78; PULSE 94; RESP 18; TEMP 36.2; O2SAT 90
[2022-05-01] MEDS: Rivaroxaban 15 MG TABLET PO (16:53)
[2022-05-01 18:56] VITALS: BP 156/82; PULSE 77; RESP 17; TEMP 36.4; O2SAT 99
[2022-05-01] MEDS: Acetaminophen 325 MG TABLET 650 MG PO (21:08)
[2022-05-01 23:48] VITALS: BP 123/89; PULSE 77; RESP 30; TEMP 36.1; O2SAT 99
[2022-05-02] MEDS: traZODone HCL 25 MG HALFTAB 12.5 MG PO (02:20)
[2022-05-02 03:46] VITALS: BP 159/96; PULSE 87; RESP 20; TEMP 36.1; O2SAT 100
[2022-05-02] MEDS: Omeprazole 20 MG CAPSULE.DR PO (05:42)
[2022-05-02 07:32] VITALS: BP 150/90; PULSE 89; RESP 20; TEMP 36.6; O2SAT 97
--- NOTE | 2022-05-02 09:31 | P.PNIM_ITS ---
Subjective Subjective Date of Service: 05/02/22 Interval History: seen and examined this morning follow up for placement awake, alert, no specific complaints no changes Review of Systems Review of Systems: Yes all other systems are reviewed and are negative Constitutional Constitutional: Denies chills and Denies fever(s) Cardiovascular Cardiovascular: Denies chest pain Gastrointestinal Gastrointestinal: Denies abdominal pain Physical Exam Vital Signs: Vital Signs: Last Vital Signs Temp 97.9 F 05/02/22 07:32 Pulse 89 05/02/22 07:32 Resp 20 05/02/22 07:32 BP 150/90 H 05/02/22 07:32 Pulse Ox 97 05/02/22 07:32 O2 Del Method 05/02/22 07:32 O2 Flow Rate 3 05/02/22 03:46 FiO2 30 04/10/22 07:00 Oxygen Flow Rate 30 04/10/22 05:25 BMI result Body Mass Index 26.4 Appearing in no acute distress lung sounds are clear to auscultation heart regular rate rhythm, clear S1, S2 positive bowel sounds, abdomen is soft, nontender neuro patient is alert, confused Objective Data Active Medications Acetaminophen (Acetaminophen 325 Mg Tablet) 650 mg PO Q6H PRN PRN Reason: Pain, Mild (Pain Scale 1-3) Last Admin: 05/01/22 21:08 Dose: 650 mg Documented By: ARNULFO Benzonatate (Benzonatate 100 Mg Capsule) 100 mg PO TID PRN PRN Reason: Cough Last Admin: 02/22/22 16:03 Dose: 100 mg Documented By: BOGDAN Bumetanide (Bumetanide 1 Mg Tablet) 1 mg PO DAILY [facility]; Protocol Last Admin: 05/01/22 08:05 Dose: 1 mg Documented By: MARISABEL Carvedilol (Carvedilol 12.5 Mg Tablet) 12.5 mg PO BID [facility]; Protocol Last Admin: 05/01/22 21:08 Dose: 12.5 mg Documented By: ARNULFO Digoxin (Digoxin 0.125 Mg Tablet) 0.125 mg PO Q2D [facility] Last Admin: 04/30/22 09:47 Dose: 0.125 mg Documented By: DEIRDRE Docusate Sodium (Docusate Sodium 100 Mg Capsule) 100 mg PO BEDTIME PRN PRN Reason: Constipation Folic Acid (Folic Acid 1 Mg Tablet) 1 mg PO DAILY [facility] Last Admin: 05/01/22 08:05 Dose: 1 mg Documented By: MARISABEL Magnesium Oxide (Magnesium Oxide 400 Mg Tablet) 400 mg PO BIDWM [facility] Last Admin: 05/01/22 16:53 Dose: 400 mg Documented By: MARISABEL Melatonin (Melatonin 3 Mg Tablet) 3 mg PO BEDTIME PRN PRN Reason: Insomnia Last Admin: 04/29/22 20:16 Dose: 3 mg Documented By: LINDA Nystatin (Nystatin Powder 15 Gm Bottle) 1 appl TOPICAL TID [facility]; Protocol Last Admin: 05/01/22 21:09 Dose: 1 appl Documented By: ARNULFO Omeprazole (Omeprazole 20 Mg Capsule.Dr) 20 mg PO DAILY@0630 [facility] Last Admin: 05/02/22 05:42 Dose: 20 mg Documented By: ARNULFO Ondansetron HCl (Ondansetron Hcl 4 Mg/2 Ml Vial) 4 mg IVPUSH Q8H PRN PRN Reason: Nausea and Vomiting Last Admin: 04/24/22 20:42 Dose: 4 mg Documented By: CRISTOFER Oxycodone HCl (Oxycodone Hcl Immed Release 5 Mg Tablet) 5 mg PO Q4H PRN PRN Reason: Pain, Moderate (Pain Scale 4-6 Last Admin: 05/01/22 03:23 Dose: 5 mg Documented By: ARNULFO Pharmacy Consult (Consult Rx Perform Med Rec) 1 each MISCELLANE ONCE PRN PRN Reason: Consult order Rivaroxaban (Rivaroxaban 15 Mg Tablet) 15 mg PO DAILY@1700 [facility] Last Admin: 05/01/22 16:53 Dose: 15 mg Documented By: MARISABEL Sodium Chloride (0.9 % Sodium Chloride Flush 3 Ml Syringe) 3 ml IVFLUSH QSHIFT [facility] Last Admin: 05/01/22 21:09 Dose: 3 ml Documented By: ARNULFO Tamsulosin HCl (Tamsulosin Hcl 0.4 Mg Capsule) 0.8 mg PO DAILY [facility] Last Admin: 05/01/22 08:05 Dose: 0.8 mg Documented By: MARISABEL Trazodone HCl (Trazodone Hcl 25 Mg Halftab) 12.5 mg PO BID PRN PRN Reason: Pain, Mild (Pain Scale 1-3) Last Admin: 05/02/22 02:20 Dose: 12.5 mg Documented By: ARNULFO [place] 04/30/22 05:39 04/30/22 05:39 Assessment and Plan (1) NSVT (nonsustained ventricular tachycardia): Status: Acute (2) Infection due to ESBL-producing Escherichia coli: Status: Acute Plan 77yo M with hx chronic HFrEF, AF s/p PPM 2019 AC on rivaroxaban, CKD3, unspecified dementia, brought in after falling in the [place] while intoxicated and developing an open anal wound with fecal drainage admitted for perirectal perforation/cellulitis. He was transferred to intensive care unit overnight of 04/09 for acute hypoxia with pulmonary edema secondary to increased fluid overload,? AFib with RVR briefly requiring BiPAP support for respiratory effort and not for hypercapnia.? He was diuressed with good effect and ultimately taking off bid ? NSVT. no further episodes asymptomatic daily magnesium continue carvedilol 12.5 b.i.d, digoxin Keep on telemetry Resistant E. coli UTI completed antibiotics. Acute respiratory failure with hypoxia due to heart failure resolved. acute on chronic systolic heart failure EF 15%, required IV diuresis in ICU, no on p.o. daily Bumex 1mg Drowsiness resolved avoid sedative medications Perirectal perforation/cellulitis fecal drainage through open perianal wound Persists, cellulitis resolved. Continue perianal hygiene, wound care no acute issues r/t perforation Urinary retention prn bladder scan, straight cath PRN freddie on CKD3,hyponatremia hyperkalemia ,AGMA,low bicarb resolved with bicarb drip. follow BMP continue to monitor Permanent AFIB rate controlled, continue metoprolol, digoxin, continue Xarelto Agitation, hallucinations no new episodes consider zyprexa or seroquel PRN avoid sedative meds. DVT prophylaxis Rivaroxaban DNR/DNI attending - Dr. Barone need for inpatient: awaiting safe discharge plan Time Spent With Patient Time: Total time managing care of this patient today ____ minutes. Quality Stroke Does the patient have a stroke diagnosis?: No VTE Prior VTE?: No VTE Risk Level:: Medical - moderate - high VTE Device Contraindication: N/A - Device Ordered VTE Drug Contraindication: Treatment Not Indicated
[2022-05-02] MEDS: Bumetanide 1 MG TABLET PO (09:38)
[2022-05-02] MEDS: carvediloL 12.5 MG TABLET PO ×2 (09:38→19:46)
[2022-05-02] MEDS: 0.9 % Sodium Chloride Flush 3 ML SYRINGE IVFLUSH ×2 (09:39→17:55)
[2022-05-02] MEDS: Tamsulosin HCL 0.4 MG CAPSULE 0.8 MG PO (09:39)
[2022-05-02] MEDS: Magnesium Oxide 400 MG TABLET PO ×2 (09:39→19:46)
[2022-05-02] MEDS: Folic Acid 1 MG TABLET PO (09:39)
[2022-05-02] MEDS: Nystatin Powder 15 GM BOTTLE 1 APPL TOPICAL ×3 (09:40→19:47)
[2022-05-02] MEDS: Digoxin 0.125 MG TABLET PO (09:42)
[2022-05-02 11:08] VITALS: BP 132/85; PULSE 79; RESP 20; TEMP 36.4; O2SAT 96
[2022-05-02 16:00] VITALS: BP 112/88; PULSE 68; RESP 17; TEMP 36.5; O2SAT 91
[2022-05-02 19:30] VITALS: BP 134/78; PULSE 65; RESP 17; TEMP 36.7; O2SAT 92
[2022-05-02] MEDS: Rivaroxaban 15 MG TABLET PO (19:46)
[2022-05-03] MEDS: 0.9 % Sodium Chloride Flush 3 ML SYRINGE IVFLUSH ×3 (03:07→17:00)
[2022-05-03 04:00] VITALS: BP 161/87; PULSE 103; RESP 17; TEMP 36.3; O2SAT 100
[2022-05-03] MEDS: Omeprazole 20 MG CAPSULE.DR PO (06:03)
[2022-05-03 07:20] VITALS: BP 115/89; PULSE 91; RESP 20; TEMP 36.4; O2SAT 93
[2022-05-03] MEDS: Bumetanide 1 MG TABLET PO (08:24)
[2022-05-03] MEDS: Tamsulosin HCL 0.4 MG CAPSULE 0.8 MG PO (08:24)
[2022-05-03] MEDS: Folic Acid 1 MG TABLET PO (08:24)
[2022-05-03] MEDS: carvediloL 12.5 MG TABLET PO ×2 (08:26→21:08)
[2022-05-03] MEDS: Magnesium Oxide 400 MG TABLET PO ×2 (08:28→17:00)
[2022-05-03] MEDS: Nystatin Powder 15 GM BOTTLE 1 APPL TOPICAL ×3 (08:39→21:09)
[2022-05-03 10:52] VITALS: BP 109/86; RESP 20; TEMP 36.2; O2SAT 95
--- NOTE | 2022-05-03 11:22 | HO.PM.IMPN ---
Subjective Subjective Date of Service: 05/03/22 Interval History: seen and examined this morning follow up for placement awake, alert, no specific complaints no changes Review of Systems Review of Systems: Yes all other systems are reviewed and are negative Constitutional Constitutional: Denies chills and Denies fever(s) Cardiovascular Cardiovascular: Denies chest pain Gastrointestinal Gastrointestinal: Denies abdominal pain Physical Exam Vital Signs: Vital Signs: Last Vital Signs Temp 97.1 F 05/03/22 10:52 Pulse 91 05/03/22 07:20 Resp 20 05/03/22 10:52 BP 109/86 05/03/22 10:52 Pulse Ox 95 05/03/22 10:52 O2 Del Method 05/03/22 10:52 O2 Flow Rate 3 05/03/22 04:00 FiO2 30 04/10/22 07:00 Oxygen Flow Rate 30 04/10/22 05:25 BMI result Body Mass Index 26.4 Appearing in no acute distress lung sounds are clear to auscultation heart regular rate rhythm, clear S1, S2 positive bowel sounds, abdomen is soft, nontender neuro patient is alert, confused Objective Data Active Medications Acetaminophen (Acetaminophen 325 Mg Tablet) 650 mg PO Q6H PRN PRN Reason: Pain, Mild (Pain Scale 1-3) Last Admin: 05/01/22 21:08 Dose: 650 mg Documented By: ARNULFO Benzonatate (Benzonatate 100 Mg Capsule) 100 mg PO TID PRN PRN Reason: Cough Last Admin: 02/22/22 16:03 Dose: 100 mg Documented By: BOGDAN Bumetanide (Bumetanide 1 Mg Tablet) 1 mg PO DAILY [facility]; Protocol Last Admin: 05/03/22 08:24 Dose: 1 mg Documented By: DEIRDRE Carvedilol (Carvedilol 12.5 Mg Tablet) 12.5 mg PO BID [facility]; Protocol Last Admin: 05/03/22 08:26 Dose: 12.5 mg Documented By: DEIRDRE Digoxin (Digoxin 0.125 Mg Tablet) 0.125 mg PO Q2D [facility] Last Admin: 05/02/22 09:42 Dose: 0.125 mg Documented By: GEORGIASCDUNCAN Docusate Sodium (Docusate Sodium 100 Mg Capsule) 100 mg PO BEDTIME PRN PRN Reason: Constipation Folic Acid (Folic Acid 1 Mg Tablet) 1 mg PO DAILY [facility] Last Admin: 05/03/22 08:24 Dose: 1 mg Documented By: DEIRDRE Magnesium Oxide (Magnesium Oxide 400 Mg Tablet) 400 mg PO BIDWM [facility] Last Admin: 05/03/22 08:28 Dose: 400 mg Documented By: DEIRDRE Melatonin (Melatonin 3 Mg Tablet) 3 mg PO BEDTIME PRN PRN Reason: Insomnia Last Admin: 04/29/22 20:16 Dose: 3 mg Documented By: LINDA Nystatin (Nystatin Powder 15 Gm Bottle) 1 appl TOPICAL TID [facility]; Protocol Last Admin: 05/03/22 08:39 Dose: 1 appl Documented By: DEIRDRE Omeprazole (Omeprazole 20 Mg Capsule.Dr) 20 mg PO DAILY@0630 [facility] Last Admin: 05/03/22 06:03 Dose: 20 mg Documented By: ILAN Ondansetron HCl (Ondansetron Hcl 4 Mg/2 Ml Vial) 4 mg IVPUSH Q8H PRN PRN Reason: Nausea and Vomiting Last Admin: 04/24/22 20:42 Dose: 4 mg Documented By: CRISTOFER Oxycodone HCl (Oxycodone Hcl Immed Release 5 Mg Tablet) 5 mg PO Q4H PRN PRN Reason: Pain, Moderate (Pain Scale 4-6 Last Admin: 05/01/22 03:23 Dose: 5 mg Documented By: ARNULFO Pharmacy Consult (Consult Rx Perform Med Rec) 1 each MISCELLANE ONCE PRN PRN Reason: Consult order Rivaroxaban (Rivaroxaban 15 Mg Tablet) 15 mg PO DAILY@1700 [facility] Last Admin: 05/02/22 19:46 Dose: 15 mg Documented By: THOMAS Sodium Chloride (0.9 % Sodium Chloride Flush 3 Ml Syringe) 3 ml IVFLUSH QSHIFT [facility] Last Admin: 05/03/22 08:24 Dose: 3 ml Documented By: DEIRDRE Tamsulosin HCl (Tamsulosin Hcl 0.4 Mg Capsule) 0.8 mg PO DAILY [facility] Last Admin: 05/03/22 08:24 Dose: 0.8 mg Documented By: DEIRDRE Trazodone HCl (Trazodone Hcl 25 Mg Halftab) 12.5 mg PO BID PRN PRN Reason: Pain, Mild (Pain Scale 1-3) Last Admin: 05/02/22 02:20 Dose: 12.5 mg Documented By: ARNULFO Labs 04/30/22 05:39 04/30/22 05:39 Assessment and Plan (1) NSVT (nonsustained ventricular tachycardia): Status: Acute (2) Infection due to ESBL-producing Escherichia coli: Status: Acute Plan 77yo M with hx chronic HFrEF, AF s/p PPM 2019 AC on rivaroxaban, CKD3, unspecified dementia, brought in after falling in the [place] while intoxicated and developing an open anal wound with fecal drainage admitted for perirectal perforation/cellulitis. He was transferred to intensive care unit overnight of 04/09 for acute hypoxia with pulmonary edema secondary to increased fluid overload,? AFib with RVR briefly requiring BiPAP support for respiratory effort and not for hypercapnia.? He was diuressed with good effect and ultimately taking off bid ? NSVT. no further episodes asymptomatic daily magnesium continue carvedilol 12.5 b.i.d, digoxin Keep on telemetry Resistant E. coli UTI completed antibiotics. Acute respiratory failure with hypoxia due to heart failure resolved. acute on chronic systolic heart failure EF 15%, required IV diuresis in ICU, no on p.o. daily Bumex 1mg Drowsiness resolved avoid sedative medications Perirectal perforation/cellulitis fecal drainage through open perianal wound Persists, cellulitis resolved. Continue perianal hygiene, wound care no acute issues r/t perforation Urinary retention [place] cath prn bladder scan, straight cath PRN freddie on CKD3,hyponatremia hyperkalemia ,AGMA,low bicarb resolved with bicarb drip. follow BMP continue to monitor Permanent AFIB rate controlled, continue metoprolol, digoxin, continue Xarelto Agitation, hallucinations no new episodes consider zyprexa or seroquel PRN avoid sedative meds. DVT prophylaxis Rivaroxaban DNR/DNI attending - Dr. Barone need for inpatient: awaiting safe discharge plan Time Spent With Patient Time: Total time managing care of this patient today ____ minutes. Quality Stroke Does the patient have a stroke diagnosis?: No VTE Prior VTE?: No VTE Risk Level:: Medical - moderate - high VTE Device Contraindication: N/A - Device Ordered VTE Drug Contraindication: Treatment Not Indicated
[2022-05-03 15:08] VITALS: BP 137/95; PULSE 71; RESP 17; TEMP 36.8; O2SAT 97
--- NOTE | 2022-05-03 15:37 | MHC.CM.PN ---
per rounds pt kartik [facility] notified that [facility] standard has been approved
[2022-05-03] MEDS: Acetaminophen 325 MG TABLET 650 MG PO (16:58)
[2022-05-03] MEDS: Rivaroxaban 15 MG TABLET PO (16:59)
[2022-05-03 19:39] VITALS: BP 124/88; PULSE 71; RESP 20; TEMP 37.1; O2SAT 100
[2022-05-03] MEDS: oxyCODONE HCl Immed Release 5 MG TABLET PO (21:08)
[2022-05-04] VITALS: BP 104/82; PULSE 70; RESP 20; TEMP 36.6; O2SAT 99
[2022-05-04] MEDS: 0.9 % Sodium Chloride Flush 3 ML SYRINGE IVFLUSH ×4 (01:03→23:36)
[2022-05-04 03:38] VITALS: BP 116/88; PULSE 66; RESP 20; TEMP 36.1; O2SAT 96
[2022-05-04] MEDS: Omeprazole 20 MG CAPSULE.DR PO (05:55)
[2022-05-04 08:00] VITALS: BP 141/72; PULSE 72; RESP 18; TEMP 36.6; O2SAT 94
[2022-05-04] MEDS: carvediloL 12.5 MG TABLET PO ×2 (09:47→19:59)
[2022-05-04] MEDS: Tamsulosin HCL 0.4 MG CAPSULE 0.8 MG PO (09:47)
[2022-05-04] MEDS: Magnesium Oxide 400 MG TABLET PO ×2 (09:49→17:28)
[2022-05-04] MEDS: Bumetanide 1 MG TABLET PO (09:49)
[2022-05-04] MEDS: Folic Acid 1 MG TABLET PO (09:49)
[2022-05-04] MEDS: Digoxin 0.125 MG TABLET PO (09:50)
[2022-05-04] MEDS: Nystatin Powder 15 GM BOTTLE 1 APPL TOPICAL ×3 (09:51→19:56)
[2022-05-04 11:06] VITALS: BP 132/64; PULSE 79; RESP 19; TEMP 36.1; O2SAT 93
--- NOTE | 2022-05-04 13:33 | MHC.CM.PN ---
Patient's [facility] Standard # is [id number].
[2022-05-04 15:23] VITALS: BP 130/86; PULSE 82; RESP 18; TEMP 36.5; O2SAT 98
--- NOTE | 2022-05-04 17:18 | HO.PM.IMPN ---
Subjective Subjective Date of Service: 05/04/22 Interval History: seen and examined this morning Follow-up for placement Awake, alert, no specific complaints Review of Systems Review of Systems: Yes all other systems are reviewed and are negative Constitutional Constitutional: Denies chills and Denies fever(s) Cardiovascular Cardiovascular: Denies chest pain and Denies dyspnea Respiratory Respiratory: Denies dyspnea Gastrointestinal Gastrointestinal: Denies abdominal pain Physical Exam Vital Signs: Vital Signs: Last Vital Signs Temp 97.7 F 05/04/22 15:23 Pulse 82 05/04/22 15:23 Resp 18 05/04/22 15:23 BP 130/86 05/04/22 15:23 Pulse Ox 98 05/04/22 15:23 O2 Del Method 05/04/22 15:23 O2 Flow Rate 2 05/04/22 15:23 FiO2 30 04/10/22 07:00 Oxygen Flow Rate 30 04/10/22 05:25 BMI result Body Mass Index 26.4 Const: General: comfortable, alert and awake Nutritional Appearance: average body habitus Resp: Effort & Inspection: normal respiratory effort and able to speak in complete sentences Auscultation: clear to auscultation bilaterally Cardio: Rate: regular rate Heart sounds: S1 normal heart sound present and S2 normal heart sound present GI: Palpation (GI): Soft to palpation and nontender Extrem: General: Yes no pedal edema Objective Data Active Medications Acetaminophen (Acetaminophen 325 Mg Tablet) 650 mg PO Q6H PRN PRN Reason: Pain, Mild (Pain Scale 1-3) Last Admin: 05/03/22 16:58 Dose: 650 mg Documented By: DEIRDRE Benzonatate (Benzonatate 100 Mg Capsule) 100 mg PO TID PRN PRN Reason: Cough Last Admin: 02/22/22 16:03 Dose: 100 mg Documented By: BOGDAN Bumetanide (Bumetanide 1 Mg Tablet) 1 mg PO DAILY [facility]; Protocol Last Admin: 05/04/22 09:49 Dose: 1 mg Documented By: CHEMO Carvedilol (Carvedilol 12.5 Mg Tablet) 12.5 mg PO BID [facility]; Protocol Last Admin: 05/04/22 09:47 Dose: 12.5 mg Documented By: CHEMO Digoxin (Digoxin 0.125 Mg Tablet) 0.125 mg PO Q2D [facility] Last Admin: 05/04/22 09:50 Dose: 0.125 mg Documented By: CHEMO Docusate Sodium (Docusate Sodium 100 Mg Capsule) 100 mg PO BEDTIME PRN PRN Reason: Constipation Folic Acid (Folic Acid 1 Mg Tablet) 1 mg PO DAILY [facility] Last Admin: 05/04/22 09:49 Dose: 1 mg Documented By: CHEMO Magnesium Oxide (Magnesium Oxide 400 Mg Tablet) 400 mg PO BIDWM [facility] Last Admin: 05/04/22 09:49 Dose: 400 mg Documented By: CHEMO Melatonin (Melatonin 3 Mg Tablet) 3 mg PO BEDTIME PRN PRN Reason: Insomnia Last Admin: 04/29/22 20:16 Dose: 3 mg Documented By: LINDA Nystatin (Nystatin Powder 15 Gm Bottle) 1 appl TOPICAL TID [facility]; Protocol Last Admin: 05/04/22 15:27 Dose: 1 appl Documented By: CHEMO Omeprazole (Omeprazole 20 Mg Capsule.Dr) 20 mg PO DAILY@0630 [facility] Last Admin: 05/04/22 05:55 Dose: 20 mg Documented By: ILAN Ondansetron HCl (Ondansetron Hcl 4 Mg/2 Ml Vial) 4 mg IVPUSH Q8H PRN PRN Reason: Nausea and Vomiting Last Admin: 04/24/22 20:42 Dose: 4 mg Documented By: CRISTOFER Oxycodone HCl (Oxycodone Hcl Immed Release 5 Mg Tablet) 5 mg PO Q4H PRN PRN Reason: Pain, Moderate (Pain Scale 4-6 Last Admin: 05/03/22 21:08 Dose: 5 mg Documented By: ACACIA Pharmacy Consult (Consult Rx Perform Med Rec) 1 each MISCELLANE ONCE PRN PRN Reason: Consult order Rivaroxaban (Rivaroxaban 15 Mg Tablet) 15 mg PO DAILY@1700 [facility] Last Admin: 05/03/22 16:59 Dose: 15 mg Documented By: DEIRDRE Sodium Chloride (0.9 % Sodium Chloride Flush 3 Ml Syringe) 3 ml IVFLUSH QSHIFT [facility] Last Admin: 05/04/22 15:28 Dose: 3 ml Documented By: CHEMO Tamsulosin HCl (Tamsulosin Hcl 0.4 Mg Capsule) 0.8 mg PO DAILY [facility] Last Admin: 05/04/22 09:47 Dose: 0.8 mg Documented By: CHEMO Trazodone HCl (Trazodone Hcl 25 Mg Halftab) 12.5 mg PO BID PRN PRN Reason: Pain, Mild (Pain Scale 1-3) Last Admin: 05/02/22 02:20 Dose: 12.5 mg Documented By: ARNULFO Labs 04/30/22 05:39 04/30/22 05:39 Assessment and Plan (1) Dementia with behavioral disturbance: Status: Acute Plan 77yo M with hx chronic HFrEF, AF s/p PPM 2019 AC on rivaroxaban, CKD3, unspecified dementia, brought in after falling [place] the [place] while intoxicated and developing an open anal wound with fecal drainage admitted for perirectal perforation/cellulitis. He was transferred to intensive care unit overnight of 04/09 for acute hypoxia with pulmonary edema secondary to increased fluid overload,? AFib with RVR briefly requiring BiPAP support for respiratory effort and not for hypercapnia.? He was diuressed with good effect and ultimately taking off bid ? NSVT. no further episodes asymptomatic daily magnesium continue carvedilol 12.5 b.i.d, digoxin Keep on telemetry Resistant E. coli UTI completed antibiotics. Acute respiratory failure with hypoxia due to heart failure resolved. acute on chronic systolic heart failure EF 15%, required IV diuresis in ICU, no on p.o. daily Bumex 1mg Drowsiness resolved avoid sedative medications Perirectal perforation/cellulitis fecal drainage through open perianal wound Persists, cellulitis resolved. Continue perianal hygiene, wound care no acute issues r/t perforation Urinary retention [place] cath prn bladder scan, straight cath PRN freddie on CKD3,hyponatremia hyperkalemia ,AGMA,low bicarb resolved with bicarb drip. follow BMP continue to monitor Permanent AFIB rate controlled, continue metoprolol, digoxin, continue Xarelto Agitation, hallucinations no new episodes consider zyprexa or seroquel PRN avoid sedative meds. DVT prophylaxis Rivaroxaban DNR/DNI attending - Dr. Barone need for inpatient: awaiting safe discharge plan Time Spent With Patient Time: Total time managing care of this patient today ____ minutes. Quality Stroke Does the patient have a stroke diagnosis?: No VTE Prior VTE?: No VTE Risk Level:: Medical - moderate - high VTE Device Contraindication: N/A - Device Ordered VTE Drug Contraindication: Treatment Not Indicated
[2022-05-04] MEDS: Rivaroxaban 15 MG TABLET PO (17:28)
[2022-05-04 19:31] VITALS: BP 125/84; PULSE 61; RESP 17; TEMP 36.7; O2SAT 99
[2022-05-04] MEDS: Melatonin 3 MG TABLET PO (19:58)
[2022-05-04] MEDS: oxyCODONE HCl Immed Release 5 MG TABLET PO (20:00)
[2022-05-05] VITALS (8 sets, daily range): BP systolic 114–149; BP diastolic 62–91; PULSE 55–98; RESP 13–20; TEMP 36.1–36.7; O2SAT 92–100
[2022-05-05] MEDS: traZODone HCL 25 MG HALFTAB 12.5 MG PO (00:12)
[2022-05-05] MEDS: oxyCODONE HCl Immed Release 5 MG TABLET PO ×3 (03:25→15:34)
[2022-05-05] MEDS: Omeprazole 20 MG CAPSULE.DR PO (06:25)
[2022-05-05] MEDS: 0.9 % Sodium Chloride Flush 3 ML SYRINGE IVFLUSH ×2 (09:11→15:35)
[2022-05-05] MEDS: carvediloL 12.5 MG TABLET PO ×2 (09:12→20:33)
[2022-05-05] MEDS: Bumetanide 1 MG TABLET PO (09:12)
[2022-05-05] MEDS: Folic Acid 1 MG TABLET PO (09:12)
[2022-05-05] MEDS: Tamsulosin HCL 0.4 MG CAPSULE 0.8 MG PO (09:12)
[2022-05-05] MEDS: Magnesium Oxide 400 MG TABLET PO ×2 (09:12→15:35)
[2022-05-05] MEDS: Nystatin Powder 15 GM BOTTLE 1 APPL TOPICAL ×3 (09:13→20:33)
--- NOTE | 2022-05-05 14:19 | P.PNIM_ITS ---
Subjective Subjective Date of Service: 05/05/22 Interval History: seen and examined this morning follow up for placement awake, alert, no overnight events documented feeling well this am Review of Systems Review of Systems: Yes all other systems are reviewed and are negative Constitutional Constitutional: Denies chills and Denies fever(s) Cardiovascular Cardiovascular: Denies chest pain, Denies palpitations and Denies dyspnea Respiratory Respiratory: Denies cough and Denies dyspnea Gastrointestinal Gastrointestinal: Denies abdominal pain Endocrine Endocrine: Denies palpitations Physical Exam Vital Signs: Vital Signs: Last Vital Signs Temp 97.4 F 05/05/22 12:00 Pulse 60 05/05/22 12:00 Resp 18 05/05/22 12:00 BP 124/72 05/05/22 12:00 Pulse Ox 100 05/05/22 12:00 O2 Del Method 05/05/22 12:00 O2 Flow Rate 2 05/05/22 12:00 FiO2 30 04/10/22 07:00 Oxygen Flow Rate 30 04/10/22 05:25 BMI result Body Mass Index 26.4 Const: Other: confused General: comfortable, alert and awake Nutritional Appearance: ave rage body habitus Resp: Effort & Inspection: normal respiratory effort and able to speak in complete sentences Auscultation: clear to auscultation bilaterally Cardio: Rate: regular rate Heart sounds: S1 normal heart sound present and S2 normal heart sound present GI: Palpation (GI): Soft to palpation and nontender Extrem: General: Yes no pedal edema Objective Data Active Medications Acetaminophen (Acetaminophen 325 Mg Tablet) 650 mg PO Q6H PRN PRN Reason: Pain, Mild (Pain Scale 1-3) Last Admin: 05/03/22 16:58 Dose: 650 mg Documented By: DEIRDRE Benzonatate (Benzonatate 100 Mg Capsule) 100 mg PO TID PRN PRN Reason: Cough Last Admin: 02/22/22 16:03 Dose: 100 mg Documented By: BOGDAN Bumetanide (Bumetanide 1 Mg Tablet) 1 mg PO DAILY [facility]; Protocol Last Admin: 05/05/22 09:12 Dose: 1 mg Documented By: KERRIE Carvedilol (Carvedilol 12.5 Mg Tablet) 12.5 mg PO BID [facility]; Protocol Last Admin: 05/05/22 09:12 Dose: 12.5 mg Documented By: KERRIE Digoxin (Digoxin 0.125 Mg Tablet) 0.125 mg PO Q2D [facility] Last Admin: 05/04/22 09:50 Dose: 0.125 mg Documented By: CHEMO Docusate Sodium (Docusate Sodium 100 Mg Capsule) 100 mg PO BEDTIME PRN PRN Reason: Constipation Folic Acid (Folic Acid 1 Mg Tablet) 1 mg PO DAILY [facility] Last Admin: 05/05/22 09:12 Dose: 1 mg Documented By: KERRIE Magnesium Oxide (Magnesium Oxide 400 Mg Tablet) 400 mg PO BIDWM [facility] Last Admin: 05/05/22 09:12 Dose: 400 mg Documented By: KERRIE Melatonin (Melatonin 3 Mg Tablet) 3 mg PO BEDTIME PRN PRN Reason: Insomnia Last Admin: 05/04/22 19:58 Dose: 3 mg Documented By: ALIN Nystatin (Nystatin Powder 15 Gm Bottle) 1 appl TOPICAL TID [facility]; Protocol Last Admin: 05/05/22 09:13 Dose: 1 appl Documented By: KERRIE Omeprazole (Omeprazole 20 Mg Capsule.Dr) 20 mg PO DAILY@0630 [facility] Last Admin: 05/05/22 06:25 Dose: 20 mg Documented By: DANICA Ondansetron HCl (Ondansetron Hcl 4 Mg/2 Ml Vial) 4 mg IVPUSH Q8H PRN PRN Reason: Nausea and Vomiting Last Admin: 04/24/22 20:42 Dose: 4 mg Documented By: TAYLORJ Oxycodone HCl (Oxycodone Hcl Immed Release 5 Mg Tablet) 5 mg PO Q4H PRN PRN Reason: Pain, Moderate (Pain Scale 4-6 Last Admin: 05/05/22 06:25 Dose: 5 mg Documented By: DANICA Pharmacy Consult (Consult Rx Perform Med Rec) 1 each MISCELLANE ONCE PRN PRN Reason: Consult order Rivaroxaban (Rivaroxaban 15 Mg Tablet) 15 mg PO DAILY@1700 [facility] Last Admin: 05/04/22 17:28 Dose: 15 mg Documented By: CHEMO Sodium Chloride (0.9 % Sodium Chloride Flush 3 Ml Syringe) 3 ml IVFLUSH QSHIFT [facility] Last Admin: 05/05/22 09:11 Dose: 3 ml Documented By: KERRIE Tamsulosin HCl (Tamsulosin Hcl 0.4 Mg Capsule) 0.8 mg PO DAILY [facility] Last Admin: 05/05/22 09:12 Dose: 0.8 mg Documented By: KERRIE Trazodone HCl (Trazodone Hcl 25 Mg Halftab) 12.5 mg PO BID PRN PRN Reason: Pain, Mild (Pain Scale 1-3) Last Admin: 05/05/22 00:12 Dose: 12.5 mg Documented By: SARAHASY Labs 04/30/22 05:39 04/30/22 05:39 Assessment and Plan (1) NSVT (nonsustained ventricular tachycardia): Status: Acute (2) Cardiomyopathy: Status: Acute (3) Traumatic perforation of rectum: Status: Acute Plan 77yo M with hx chronic HFrEF, AF s/p PPM 2020 AC on rivaroxaban, CKD3, unspecified dementia, brought in after falling [place] the [place] while intoxicated and developing an open anal wound with fecal drainage admitted for perirectal perforation/cellulitis. He was transferred to intensive care unit overnight of 04/09 for acute hypoxia with pulmonary edema secondary to increased fluid overload,? AFib with RVR briefly requiring BiPAP support for respiratory effort and not for hypercapnia.? He was diuressed with good effect and ultimately taking off bid ? NSVT. no further episodes asymptomatic daily magnesium continue carvedilol 12.5 b.i.d, digoxin Keep on telemetry Resistant E. coli UTI completed antibiotics. Acute respiratory failure with hypoxia due to heart failure resolved. acute on chronic systolic heart failure EF 15%, required IV diuresis in ICU, no on p.o. daily Bumex 1mg Drowsiness resolved avoid sedative medications Perirectal perforation/cellulitis fecal drainage through open perianal wound Persists, cellulitis resolved. Continue perianal hygiene, wound care no acute issues r/t perforation Urinary retention [place] cath prn bladder scan, straight cath PRN freddie on CKD3,hyponatremia hyperkalemia ,AGMA,low bicarb resolved with bicarb drip. stable Permanent AFIB rate controlled, continue metoprolol, digoxin, continue Xarelto Agitation, hallucinations no new episodes consider zyprexa or seroquel PRN avoid sedative meds. DVT prophylaxis Rivaroxaban DNR/DNI attending - Dr. Barone need for inpatient: awaiting safe discharge plan Time Spent With Patient Time: Total time managing care of this patient today ____ minutes. Quality Stroke Does the patient have a stroke diagnosis?: No VTE Prior VTE?: No VTE Risk Level:: Medical - moderate - high VTE Device Contraindication: N/A - Device Ordered VTE Drug Contraindication: Treatment Not Indicated
[2022-05-05] MEDS: Rivaroxaban 15 MG TABLET PO (15:34)
[2022-05-05] MEDS: Melatonin 3 MG TABLET PO (20:33)
[2022-05-06] MEDS: 0.9 % Sodium Chloride Flush 3 ML SYRINGE IVFLUSH ×4 (01:16→21:46)
[2022-05-06 04:00] VITALS: BP 130/90; PULSE 55; RESP 18; TEMP 36.4; O2SAT 98
[2022-05-06 07:59] VITALS: BP 131/90; PULSE 65; RESP 16; TEMP 36.8; O2SAT 100
[2022-05-06] MEDS: Folic Acid 1 MG TABLET PO (09:46)
[2022-05-06] MEDS: carvediloL 12.5 MG TABLET PO ×2 (09:46→21:45)
[2022-05-06] MEDS: Bumetanide 1 MG TABLET PO (09:46)
[2022-05-06] MEDS: oxyCODONE HCl Immed Release 5 MG TABLET PO ×2 (09:46→16:27)
[2022-05-06] MEDS: Tamsulosin HCL 0.4 MG CAPSULE 0.8 MG PO (09:46)
[2022-05-06] MEDS: Nystatin Powder 15 GM BOTTLE 1 APPL TOPICAL ×3 (09:47→21:45)
[2022-05-06] MEDS: Magnesium Oxide 400 MG TABLET PO ×2 (09:47→16:28)
[2022-05-06] MEDS: Digoxin 0.125 MG TABLET PO (09:48)
[2022-05-06 12:00] VITALS: BP 113/76; PULSE 74; RESP 16; TEMP 36.4; O2SAT 97
[2022-05-06 15:28] VITALS: BP 117/85; PULSE 76; RESP 17; TEMP 37.1; O2SAT 97
--- NOTE | 2022-05-06 16:03 | P.PNIM_ITS ---
Subjective Subjective Date of Service: 05/06/22 Interval History: seen and examined this morning follow up for placement no overnight events documented awake, alert, no specific complaints Review of Systems Review of Systems: Yes all other systems are reviewed and are negative Constitutional Constitutional: Denies chills and Denies fever(s) Cardiovascular Cardiovascular: Denies chest pain, Denies palpitations and Denies dyspnea Respiratory Respiratory: Denies cough and Denies dyspnea Gastrointestinal Gastrointestinal: Denies abdominal pain Neurologic Neurologic: Reports confusion Psychiatric Psychiatric: Reports confusion Endocrine Endocrine: Denies palpitations Physical Exam Vital Signs: Vital Signs: Last Vital Signs Temp 98.7 F 05/06/22 15:28 Pulse 76 05/06/22 15:28 Resp 17 05/06/22 15:28 BP 117/85 05/06/22 15:28 Pulse Ox 97 05/06/22 15:28 O2 Del Method 05/06/22 15:28 O2 Flow Rate 1 05/06/22 15:28 FiO2 30 04/10/22 07:00 Oxygen Flow Rate 30 04/10/22 05:25 BMI result Body Mass Index 26.4 Const: General: cooperative, comfortable, awake, Physically active and confusion Nutritional Appearance: average body habitus Orientation/consc iousness: confusion Resp: Effort & Inspection: normal respiratory effort and able to speak in complete sentences Cardio: Rate: regular rate Heart sounds: S1 normal heart sound present and S2 normal heart sound present GI: Palpation (GI): Soft to palpation and nontender Neuro: General: CN's II-XI intact bilaterally and confusion Extrem: Other: trace leg edema Objective Data Active Medications Acetaminophen (Acetaminophen 325 Mg Tablet) 650 mg PO Q6H PRN PRN Reason: Pain, Mild (Pain Scale 1-3) Last Admin: 05/03/22 16:58 Dose: 650 mg Documented By: DEIRDRE Benzonatate (Benzonatate 100 Mg Capsule) 100 mg PO TID PRN PRN Reason: Cough Last Admin: 02/22/22 16:03 Dose: 100 mg Documented By: BOGDAN Bumetanide (Bumetanide 1 Mg Tablet) 1 mg PO DAILY [facility]; Protocol Last Admin: 05/06/22 09:46 Dose: 1 mg Documented By: ANNEL Carvedilol (Carvedilol 12.5 Mg Tablet) 12.5 mg PO BID [facility]; Protocol Last Admin: 05/06/22 09:46 Dose: 12.5 mg Documented By: ANNEL Digoxin (Digoxin 0.125 Mg Tablet) 0.125 mg PO Q2D [facility] Last Admin: 05/06/22 09:48 Dose: 0.125 mg Documented By: ANNEL Docusate Sodium (Docusate Sodium 100 Mg Capsule) 100 mg PO BEDTIME PRN PRN Reason: Constipation Folic Acid (Folic Acid 1 Mg Tablet) 1 mg PO DAILY [facility] Last Admin: 05/06/22 09:46 Dose: 1 mg Documented By: ANNEL Magnesium Oxide (Magnesium Oxide 400 Mg Tablet) 400 mg PO BIDWM [facility] Last Admin: 05/06/22 09:47 Dose: 400 mg Documented By: ANNEL Melatonin (Melatonin 3 Mg Tablet) 3 mg PO BEDTIME PRN PRN Reason: Insomnia Last Admin: 05/05/22 20:33 Dose: 3 mg Documented By: ALIN Nystatin (Nystatin Powder 15 Gm Bottle) 1 appl TOPICAL TID [facility]; Protocol Last Admin: 05/06/22 15:01 Dose: 1 appl Documented By: ANNEL Omeprazole (Omeprazole 20 Mg Capsule.Dr) 20 mg PO DAILY@0630 [facility] Last Admin: 05/06/22 05:55 Dose: Not Given Documented By: MEGAN Non-Admin Reason: Patient Refused Ondansetron HCl (Ondansetron Hcl 4 Mg/2 Ml Vial) 4 mg IVPUSH Q8H PRN PRN Reason: Nausea and Vomiting Last Admin: 04/24/22 20:42 Dose: 4 mg Documented By: CRISTOFER Oxycodone HCl (Oxycodone Hcl Immed Release 5 Mg Tablet) 5 mg PO Q4H PRN PRN Reason: Pain, Moderate (Pain Scale 4-6 Last Admin: 05/06/22 09:46 Dose: 5 mg Documented By: ANNEL Pharmacy Consult (Consult Rx Perform Med Rec) 1 each MISCELLANE ONCE PRN PRN Reason: Consult order Rivaroxaban (Rivaroxaban 15 Mg Tablet) 15 mg PO DAILY@1700 [facility] Last Admin: 05/05/22 15:34 Dose: 15 mg Documented By: LYSEaston Sodium Chloride (0.9 % Sodium Chloride Flush 3 Ml Syringe) 3 ml IVFLUSH QSHIFT [facility] Last Admin: 05/06/22 15:01 Dose: 3 ml Documented By: ANNEL Tamsulosin HCl (Tamsulosin Hcl 0.4 Mg Capsule) 0.8 mg PO DAILY [facility] Last Admin: 05/06/22 09:46 Dose: 0.8 mg Documented By: ANNEL Trazodone HCl (Trazodone Hcl 25 Mg Halftab) 12.5 mg PO BID PRN PRN Reason: Pain, Mild (Pain Scale 1-3) Last Admin: 05/05/22 00:12 Dose: 12.5 mg Documented By: TUMASY Labs 04/30/22 05:39 04/30/22 05:39 Assessment and Plan (1) Dementia with behavioral disturbance: Status: Acute Plan 77yo M with hx chronic HFrEF, AF s/p PPM 2019 AC on rivaroxaban, CKD3, unspecified dementia, brought in after falling in the [place] while intoxicated and developing an open anal wound with fecal drainage admitted for perirectal perforation/cellulitis. He was transferred to intensive care unit overnight of 04/09 for acute hypoxia with pulmonary edema secondary to increased fluid overload,? AFib with RVR briefly requiring BiPAP support for respiratory effort and not for hypercapnia.? He was diuressed with good effect and ultimately taking off bid ? NSVT. no further episodes asymptomatic daily magnesium continue carvedilol 12.5 b.i.d, digoxin Keep on telemetry Resistant E. coli UTI completed antibiotics. Acute respiratory failure with hypoxia due to heart failure resolved. acute on chronic systolic heart failure EF 15%, required IV diuresis in ICU now on p.o. daily Bumex 1mg Drowsiness resolved avoid sedative medications Perirectal perforation/cellulitis fecal drainage through open perianal wound Persists, cellulitis resolved. Continue perianal hygiene, wound care no acute issues r/t perforation Urinary retention [place] cath prn bladder scan, straight cath PRN freddie on CKD3,hyponatremia hyperkalemia ,AGMA,low bicarb resolved with bicarb drip. stable Permanent AFIB rate controlled, continue metoprolol, digoxin, continue Xarelto Agitation, hallucinations no new episodes consider zyprexa or seroquel PRN avoid sedative meds. DVT prophylaxis Rivaroxaban DNR/DNI attending - Dr. Black need for inpatient: awaiting safe discharge plan Time Spent With Patient Time: Total time managing care of this patient today ____ minutes. Quality Stroke Does the patient have a stroke diagnosis?: No VTE Prior VTE?: No VTE Risk Level:: Medical - moderate - high VTE Device Contraindication: N/A - Device Ordered VTE Drug Contraindication: Treatment Not Indicated
[2022-05-06] MEDS: Rivaroxaban 15 MG TABLET PO (16:27)
[2022-05-06 19:46] VITALS: BP 119/80; PULSE 65; RESP 19; TEMP 37; O2SAT 93
[2022-05-07] VITALS (7 sets, daily range): BP systolic 117–144; BP diastolic 72–94; PULSE 67–95; RESP 18–20; TEMP 36.1–37.2; O2SAT 90–95
--- NOTE | 2022-05-07 00:53 | PC.NURSE ---
Patient yelling, said wants pain medication but when offered to take it he refused it and told the nurse to get the f.... out of his room. Possible patient is incontinent at this time and is refusing personal care as well as repositioning. Safety maintained.
[2022-05-07] MEDS: oxyCODONE HCl Immed Release 5 MG TABLET PO ×3 (04:36→21:03)
[2022-05-07] MEDS: Omeprazole 20 MG CAPSULE.DR PO (05:46)
[2022-05-07 08:27] LABS: Anion Gap 16 (12-20); Blood Urea Nitrogen 31 mg/dL (9-16); Calcium 9.1 mg/dL (8.4-10.2); Carbon Dioxide 29 mmol/L (22-29); Chloride 101 mmol/L (96-108); Creatinine Clr Calc Pharmacy 43.6; Estimated Glomerular Filt Rate 47; Glucose Random 107 mg/dL (60-115); Potassium 3.8 mmol/L (3.3-5.1); Sodium 142 mmol/L (135-145)
[2022-05-07] MEDS: 0.9 % Sodium Chloride Flush 3 ML SYRINGE IVFLUSH ×3 (09:53→21:05)
[2022-05-07] MEDS: Tamsulosin HCL 0.4 MG CAPSULE 0.8 MG PO (09:53)
[2022-05-07] MEDS: Magnesium Oxide 400 MG TABLET PO ×2 (09:53→17:41)
[2022-05-07] MEDS: Bumetanide 1 MG TABLET PO (09:53)
[2022-05-07] MEDS: Folic Acid 1 MG TABLET PO (09:53)
[2022-05-07] MEDS: carvediloL 12.5 MG TABLET PO ×2 (09:53→21:02)
[2022-05-07] MEDS: Nystatin Powder 15 GM BOTTLE 1 APPL TOPICAL ×3 (09:54→21:04)
--- NOTE | 2022-05-07 10:35 | HO.PM.IMPN ---
Subjective Subjective Date of Service: 05/07/22 Interval History: seen and examined this morning follow up for placement no overnight events no specific complaints this morning, feeling well Review of Systems Review of Systems: Yes all other systems are reviewed and are negative Constitutional Constitutional: Denies chills and Denies fever(s) Cardiovascular Cardiovascular: Denies chest pain, Denies palpitations and Denies dyspnea Respiratory Respiratory: Denies cough and Denies dyspnea Gastrointestinal Gastrointestinal: Denies abdominal pain, Denies nausea and Denies vomiting Endocrine Endocrine: Denies palpitations Physical Exam Vital Signs: Vital Signs: Last Vital Signs Temp 97.0 F 05/07/22 07:24 Pulse 71 05/07/22 07:24 Resp 20 05/07/22 07:24 BP 129/88 05/07/22 07:24 Pulse Ox 94 05/07/22 07:24 O2 Del Method 05/07/22 07:24 O2 Flow Rate 1 05/06/22 19:46 FiO2 30 04/10/22 07:00 Oxygen Flow Rate 30 04/10/22 05:25 BMI result Body Mass Index 26.4 Const: Other: confused General: cooperative, comfortable, alert, awake and Physically active Nutritional Appearance: average body habitus Resp: Effort & Inspection: normal respiratory effort and able to speak in complete sentences Auscultation: clear to auscultation bilaterally Cardio: Rate: regular rate Heart sounds: S1 normal heart sound present and S2 normal heart sound present GI: Palpation (GI): Soft to palpation and nontender Neuro: General: CN's II-XI intact bilaterally Extrem: Other: trace leg edema General: Yes no pedal edema Objective Data Active Medications Acetaminophen (Acetaminophen 325 Mg Tablet) 650 mg PO Q6H PRN PRN Reason: Pain, Mild (Pain Scale 1-3) Last Admin: 05/03/22 16:58 Dose: 650 mg Benzonatate (Benzonatate 100 Mg Capsule) 100 mg PO TID PRN PRN Reason: Cough Last Admin: 02/22/22 16:03 Dose: 100 mg Documented By: BOGDAN Bumetanide (Bumetanide 1 Mg Tablet) 1 mg PO DAILY [facility]; Protocol Last Admin: 05/07/22 09:53 Dose: 1 mg Documented By: ANNEL Carvedilol (Carvedilol 12.5 Mg Tablet) 12.5 mg PO BID [facility]; Protocol Last Admin: 05/07/22 09:53 Dose: 12.5 mg Documented By: ANNEL Digoxin (Digoxin 0.125 Mg Tablet) 0.125 mg PO Q2D [facility] Last Admin: 05/06/22 09:48 Dose: 0.125 mg Documented By: ANNEL Docusate Sodium (Docusate Sodium 100 Mg Capsule) 100 mg PO BEDTIME PRN PRN Reason: Constipation Folic Acid (Folic Acid 1 Mg Tablet) 1 mg PO DAILY [facility] Last Admin: 05/07/22 09:53 Dose: 1 mg Documented By: ANNEL Magnesium Oxide (Magnesium Oxide 400 Mg Tablet) 400 mg PO BIDWM [facility] Last Admin: 05/07/22 09:53 Dose: 400 mg Documented By: ANNEL Melatonin (Melatonin 3 Mg Tablet) 3 mg PO BEDTIME PRN PRN Reason: Insomnia Last Admin: 05/05/22 20:33 Dose: 3 mg Documented By: ALIN Nystatin (Nystatin Powder 15 Gm Bottle) 1 appl TOPICAL TID [facility]; Protocol Last Admin: 05/07/22 09:54 Dose: 1 appl Documented By: ANNEL Omeprazole (Omeprazole 20 Mg Capsule.Dr) 20 mg PO DAILY@0630 [facility] Last Admin: 05/07/22 05:46 Dose: 20 mg Documented By: ILEANA Ondansetron HCl (Ondansetron Hcl 4 Mg/2 Ml Vial) 4 mg IVPUSH Q8H PRN PRN Reason: Nausea and Vomiting Last Admin: 04/24/22 20:42 Dose: 4 mg Documented By: CRISTOFER Oxycodone HCl (Oxycodone Hcl Immed Release 5 Mg Tablet) 5 mg PO Q4H PRN PRN Reason: Pain, Moderate (Pain Scale 4-6 Last Admin: 05/07/22 09:53 Dose: 5 mg Documented By: ANNEL Pharmacy Consult (Consult Rx Perform Med Rec) 1 each MISCELLANE ONCE PRN PRN Reason: Consult order Rivaroxaban (Rivaroxaban 15 Mg Tablet) 15 mg PO DAILY@1700 [facility] Last Admin: 05/06/22 16:27 Dose: 15 mg Documented By: ANNEL Sodium Chloride (0.9 % Sodium Chloride Flush 3 Ml Syringe) 3 ml IVFLUSH QSHIFT [facility] Last Admin: 05/07/22 09:53 Dose: 3 ml Documented By: ANNEL Tamsulosin HCl (Tamsulosin Hcl 0.4 Mg Capsule) 0.8 mg PO DAILY [facility] Last Admin: 05/07/22 09:53 Dose: 0.8 mg Documented By: ANNEL Trazodone HCl (Trazodone Hcl 25 Mg Halftab) 12.5 mg PO BID PRN PRN Reason: Pain, Mild (Pain Scale 1-3) Last Admin: 05/05/22 00:12 Dose: 12.5 mg Documented By: TUMASY Labs 04/30/22 05:39 05/07/22 07:44 Labs: Laboratory Results - last 24 hr 05/07/22 07:44 Anion Gap 16 Estim Creat Clear Calc 43.6 Estimated GFR 47 Random Glucose 107 Calcium 9.1 Assessment and Plan (1) Dementia with behavioral disturbance: Status: Acute Plan 77yo M with hx chronic HFrEF, AF s/p PPM 2019 AC on rivaroxaban, CKD3, unspecified dementia, brought in after falling [place] the [place] while intoxicated and developing an open anal wound with fecal drainage admitted for perirectal perforation/cellulitis. He was transferred to intensive care unit overnight of 04/09 for acute hypoxia with pulmonary edema secondary to increased fluid overload,? AFib with RVR briefly requiring BiPAP support for respiratory effort and not for hypercapnia.? He was diuressed with good effect and ultimately taking off bid ? NSVT. no further episodes asymptomatic daily magnesium continue carvedilol 12.5 b.i.d, digoxin Keep on telemetry Resistant E. coli UTI completed antibiotics. Acute respiratory failure with hypoxia due to heart failure resolved. acute on chronic systolic heart failure EF 15%, required IV diuresis in ICU now on p.o. daily Bumex 1mg Drowsiness resolved avoid sedative medications Perirectal perforation/cellulitis fecal drainage through open perianal wound Persists, cellulitis resolved. Continue perianal hygiene, wound care no acute issues r/t perforation Urinary retention [place] cath prn bladder scan, straight cath PRN freddie on CKD3,hyponatremia hyperkalemia ,AGMA,low bicarb resolved with bicarb drip. stable Permanent AFIB rate controlled, continue metoprolol, digoxin, continue Xarelto Agitation, hallucinations no new episodes consider zyprexa or seroquel PRN avoid sedative meds. DVT prophylaxis Rivaroxaban DNR/DNI attending - Dr. Perez need for inpatient: awaiting safe discharge plan Time Spent With Patient Time: Total time managing care of this patient today ____ minutes. Quality Stroke Does the patient have a stroke diagnosis?: No VTE Prior VTE?: No VTE Risk Level:: Medical - moderate - high VTE Device Contraindication: N/A - Device Ordered VTE Drug Contraindication: Treatment Not Indicated
[2022-05-07] MEDS: traZODone HCL 25 MG HALFTAB 12.5 MG PO (14:18)
[2022-05-07] MEDS: Rivaroxaban 15 MG TABLET PO (17:41)
[2022-05-07] MEDS: Melatonin 3 MG TABLET PO (21:02)
[2022-05-08] VITALS (7 sets, daily range): BP systolic 118–151; BP diastolic 83–100; PULSE 67–91; RESP 18–20; TEMP 36.3–37.3; O2SAT 92–96
[2022-05-08] MEDS: Omeprazole 20 MG CAPSULE.DR PO (06:07)
[2022-05-08] MEDS: oxyCODONE HCl Immed Release 5 MG TABLET PO (06:09)
[2022-05-08 09:05] LABS: Creatinine Clr Calc Pharmacy 45.8; Estimated Glomerular Filt Rate 49
[2022-05-08] MEDS: Bumetanide 1 MG TABLET PO (09:23)
[2022-05-08] MEDS: Tamsulosin HCL 0.4 MG CAPSULE 0.8 MG PO (09:23)
[2022-05-08] MEDS: Folic Acid 1 MG TABLET PO (09:23)
[2022-05-08] MEDS: carvediloL 12.5 MG TABLET PO ×2 (09:23→21:42)
[2022-05-08] MEDS: 0.9 % Sodium Chloride Flush 3 ML SYRINGE IVFLUSH ×3 (09:24→21:47)
[2022-05-08] MEDS: Magnesium Oxide 400 MG TABLET PO ×2 (09:24→17:54)
[2022-05-08] MEDS: Digoxin 0.125 MG TABLET PO (09:32)
--- NOTE | 2022-05-08 11:11 | MHC.CM.PN ---
per rounds pt ready for dc no accepting facilities at this time
--- NOTE | 2022-05-08 11:20 | HO.PM.IMPN ---
Subjective Subjective Date of Service: 05/08/22 Interval History: seen and examined this morning follow up for placement no overnight events no specific complaints this morning, feeling well Review of Systems Review of Systems: Yes all other systems are reviewed and are negative Constitutional Constitutional: Denies chills and Denies fever(s) Cardiovascular Cardiovascular: Denies chest pain, Denies palpitations and Denies dyspnea Respiratory Respiratory: Denies cough and Denies dyspnea Gastrointestinal Gastrointestinal: Denies abdominal pain, Denies nausea and Denies vomiting Endocrine Endocrine: Denies palpitations Physical Exam Vital Signs: Vital Signs: Last Vital Signs Temp 99.1 F 05/08/22 11:15 Pulse 74 05/08/22 11:15 Resp 18 05/08/22 11:15 BP 118/83 05/08/22 11:15 Pulse Ox 96 05/08/22 11:15 O2 Del Method 05/08/22 11:15 O2 Flow Rate 1 05/06/22 19:46 FiO2 30 04/10/22 07:00 Oxygen Flow Rate 30 04/10/22 05:25 BMI result Body Mass Index 26.4 Appearing in no acute distress lung sounds are clear to auscultation heart regular rate rhythm, clear S1, S2 positive bowel sounds, abdomen is soft, nontender neuro patient is alert, confused Objective Data Active Medications Acetaminophen (Acetaminophen 325 Mg Tablet) 650 mg PO Q6H PRN PRN Reason: Pain, Mild (Pain Scale 1-3) Last Admin: 05/03/22 16:58 Dose: 650 mg Benzonatate (Benzonatate 100 Mg Capsule) 100 mg PO TID PRN PRN Reason: Cough Last Admin: 02/22/22 16:03 Dose: 100 mg Documented By: BOGDAN Bumetanide (Bumetanide 1 Mg Tablet) 1 mg PO DAILY [facility]; Protocol Last Admin: 05/08/22 09:23 Dose: 1 mg Documented By: PATTI Carvedilol (Carvedilol 12.5 Mg Tablet) 12.5 mg PO BID [facility]; Protocol Last Admin: 05/08/22 09:23 Dose: 12.5 mg Documented By: PATTI Digoxin (Digoxin 0.125 Mg Tablet) 0.125 mg PO Q2D [facility] Last Admin: 05/08/22 09:32 Dose: 0.125 mg Documented By: PATTI Docusate Sodium (Docusate Sodium 100 Mg Capsule) 100 mg PO BEDTIME PRN PRN Reason: Constipation Folic Acid (Folic Acid 1 Mg Tablet) 1 mg PO DAILY [facility] Last Admin: 05/08/22 09:23 Dose: 1 mg Documented By: PATTI Magnesium Oxide (Magnesium Oxide 400 Mg Tablet) 400 mg PO BIDWM [facility] Last Admin: 05/08/22 09:24 Dose: 400 mg Documented By: PATTI Melatonin (Melatonin 3 Mg Tablet) 3 mg PO BEDTIME PRN PRN Reason: Insomnia Last Admin: 05/07/22 21:02 Dose: 3 mg Documented By: BRET Nystatin (Nystatin Powder 15 Gm Bottle) 1 appl TOPICAL TID [facility]; Protocol Last Admin: 05/08/22 09:35 Dose: Not Given Documented By: PATTI Non-Admin Reason: Previously Administered Omeprazole (Omeprazole 20 Mg Capsule.Dr) 20 mg PO DAILY@0630 [facility] Last Admin: 05/08/22 06:07 Dose: 20 mg Documented By: BRET Ondansetron HCl (Ondansetron Hcl 4 Mg/2 Ml Vial) 4 mg IVPUSH Q8H PRN PRN Reason: Nausea and Vomiting Last Admin: 04/24/22 20:42 Dose: 4 mg Documented By: CRISTOFER Oxycodone HCl (Oxycodone Hcl Immed Release 5 Mg Tablet) 5 mg PO Q4H PRN PRN Reason: Pain, Moderate (Pain Scale 4-6 Last Admin: 05/08/22 06:09 Dose: 5 mg Documented By: BRET Pharmacy Consult (Consult Rx Perform Med Rec) 1 each MISCELLANE ONCE PRN PRN Reason: Consult order Rivaroxaban (Rivaroxaban 15 Mg Tablet) 15 mg PO DAILY@1700 [facility] Last Admin: 05/07/22 17:41 Dose: 15 mg Documented By: RIOSCDUNCAN Sodium Chloride (0.9 % Sodium Chloride Flush 3 Ml Syringe) 3 ml IVFLUSH QSHIFT [facility] Last Admin: 05/08/22 09:24 Dose: 3 ml Documented By: PATTI Tamsulosin HCl (Tamsulosin Hcl 0.4 Mg Capsule) 0.8 mg PO DAILY [facility] Last Admin: 05/08/22 09:23 Dose: 0.8 mg Documented By: DOBROB Trazodone HCl (Trazodone Hcl 25 Mg Halftab) 12.5 mg PO BID PRN PRN Reason: Pain, Mild (Pain Scale 1-3) Last Admin: 05/07/22 14:18 Dose: 12.5 mg Documented By: ANNEL Labs 04/30/22 05:39 05/08/22 08:35 Labs: Laboratory Results - last 24 hr 05/08/22 08:35 Estim Creat Clear Calc 45.8 Estimated GFR 49 Assessment and Plan (1) Dementia with behavioral disturbance: Status: Acute Plan 77yo M with hx chronic HFrEF, AF s/p PPM 2019 AC on rivaroxaban, CKD3, unspecified dementia, brought in after falling in the [place] while intoxicated and developing an open anal wound with fecal drainage admitted for perirectal perforation/cellulitis. He was transferred to intensive care unit overnight of 04/09 for acute hypoxia with pulmonary edema secondary to increased fluid overload,? AFib with RVR briefly requiring BiPAP support for respiratory effort and not for hypercapnia.? He was diuressed with good effect and ultimately taking off bid ? DAWIT on CKD3 trending down NSVT. no further episodes asymptomatic daily magnesium continue carvedilol 12.5 b.i.d, digoxin Keep on telemetry Resistant E. coli UTI completed antibiotics. Acute respiratory failure with hypoxia due to heart failure resolved. acute on chronic systolic heart failure EF 15%, required IV diuresis in ICU now on p.o. daily Bumex 1mg Drowsiness resolved avoid sedative medications Perirectal perforation/cellulitis fecal drainage through open perianal wound Persists, cellulitis resolved. Continue perianal hygiene, wound care no acute issues r/t perforation Urinary retention [place] cath prn bladder scan, straight cath PRN Permanent AFIB rate controlled, continue metoprolol, digoxin, continue Xarelto Agitation, hallucinations no new episodes consider zyprexa or seroquel PRN avoid sedative meds. DVT prophylaxis Rivaroxaban DNR/DNI attending - Dr. Barone need for inpatient: awaiting safe discharge plan Time Spent With Patient Time: Total time managing care of this patient today ____ minutes. Quality Stroke Does the patient have a stroke diagnosis?: No VTE Prior VTE?: No VTE Risk Level:: Medical - moderate - high VTE Device Contraindication: N/A - Device Ordered VTE Drug Contraindication: Treatment Not Indicated
[2022-05-08] MEDS: Rivaroxaban 15 MG TABLET PO (17:54)
[2022-05-08] MEDS: Acetaminophen 325 MG TABLET 650 MG PO (21:42)
[2022-05-08] MEDS: Nystatin Powder 15 GM BOTTLE 1 APPL TOPICAL (21:43)
[2022-05-09 04:00] VITALS: BP 120/90; PULSE 63; RESP 18; TEMP 36.5; O2SAT 97
--- NOTE | 2022-05-09 04:57 | PC.NURSE ---
PT had a 12 Beat run of VTach. He also was having periods of apnea with his O2 sat dropping to 85%. I put him back on 2L O2 NC and let Dr. Demarco know who said just to watch him for now.
[2022-05-09] MEDS: Omeprazole 20 MG CAPSULE.DR PO (06:27)
[2022-05-09] MEDS: oxyCODONE HCl Immed Release 5 MG TABLET PO (07:29)
[2022-05-09] MEDS: 0.9 % Sodium Chloride Flush 3 ML SYRINGE IVFLUSH ×3 (07:31→21:25)
[2022-05-09] MEDS: Magnesium Oxide 400 MG TABLET PO ×2 (07:31→18:02)
[2022-05-09 07:55] VITALS: BP 118/87; PULSE 57; RESP 14; TEMP 36.6; O2SAT 100
[2022-05-09] MEDS: Tamsulosin HCL 0.4 MG CAPSULE 0.8 MG PO (08:47)
[2022-05-09] MEDS: carvediloL 12.5 MG TABLET PO ×2 (08:47→21:19)
[2022-05-09] MEDS: Bumetanide 1 MG TABLET PO (08:47)
[2022-05-09] MEDS: Folic Acid 1 MG TABLET PO (08:47)
--- NOTE | 2022-05-09 09:52 | P.PNIM_ITS ---
Subjective Subjective Date of Service: 05/09/22 Interval History: seen and examined this morning follow up for placement no overnight events no specific complaints this morning, feeling well Review of Systems Review of Systems: Yes all other systems are reviewed and are negative Constitutional Constitutional: Denies chills and Denies fever(s) Cardiovascular Cardiovascular: Denies chest pain, Denies palpitations and Denies dyspnea Respiratory Respiratory: Denies cough and Denies dyspnea Gastrointestinal Gastrointestinal: Denies abdominal pain, Denies nausea and Denies vomiting Endocrine Endocrine: Denies palpitations Physical Exam Vital Signs: Vital Signs: Last Vital Signs Temp 97.9 F 05/09/22 07:55 Pulse 57 05/09/22 07:55 Resp 14 05/09/22 07:55 BP 118/87 05/09/22 07:55 Pulse Ox 100 05/09/22 07:55 O2 Del Method 05/09/22 07:55 O2 Flow Rate 2 05/09/22 07:55 FiO2 30 04/10/22 07:00 Oxygen Flow Rate 30 04/10/22 05:25 BMI result Body Mass Index 26.4 Appearing in no acute distress lung sounds are clear to auscultation heart regular rate rhythm, clear S1, S2 positive bowel sounds, abdomen is soft, nontender neuro patient is alert x3, no focal deficits Erythema and edema to right elbow Objective Data Active Medications Acetaminophen (Acetaminophen 325 Mg Tablet) 650 mg PO Q6H PRN PRN Reason: Pain, Mild (Pain Scale 1-3) Last Admin: 05/08/22 21:42 Dose: 650 mg Documented By: BRET Benzonatate (Benzonatate 100 Mg Capsule) 100 mg PO TID PRN PRN Reason: Cough Last Admin: 02/22/22 16:03 Dose: 100 mg Documented By: BOGDAN Bumetanide (Bumetanide 1 Mg Tablet) 1 mg PO DAILY [facility]; Protocol Last Admin: 05/09/22 08:47 Dose: 1 mg Documented By: PATTI Carvedilol (Carvedilol 12.5 Mg Tablet) 12.5 mg PO BID [facility]; Protocol Last Admin: 05/09/22 08:47 Dose: 12.5 mg Documented By: PATTI Digoxin (Digoxin 0.125 Mg Tablet) 0.125 mg PO Q2D [facility] Last Admin: 05/08/22 09:32 Dose: 0.125 mg Documented By: PATTI Docusate Sodium (Docusate Sodium 100 Mg Capsule) 100 mg PO BEDTIME PRN PRN Reason: Constipation Folic Acid (Folic Acid 1 Mg Tablet) 1 mg PO DAILY [facility] Last Admin: 05/09/22 08:47 Dose: 1 mg Documented By: PATTI Magnesium Oxide (Magnesium Oxide 400 Mg Tablet) 400 mg PO BIDWM [facility] Last Admin: 05/09/22 07:31 Dose: 400 mg Documented By: PATTI Melatonin (Melatonin 3 Mg Tablet) 3 mg PO BEDTIME PRN PRN Reason: Insomnia Last Admin: 05/07/22 21:02 Dose: 3 mg Documented By: BRET Nystatin (Nystatin Powder 15 Gm Bottle) 1 appl TOPICAL TID [facility]; Protocol Last Admin: 05/09/22 08:56 Dose: Not Given Documented By: PATTI Non-Admin Reason: Previously Administered Omeprazole (Omeprazole 20 Mg Capsule.Dr) 20 mg PO DAILY@0630 [facility] Last Admin: 05/09/22 06:27 Dose: 20 mg Documented By: BRET Ondansetron HCl (Ondansetron Hcl 4 Mg/2 Ml Vial) 4 mg IVPUSH Q8H PRN PRN Reason: Nausea and Vomiting Last Admin: 04/24/22 20:42 Dose: 4 mg Documented By: CRISTOFER Oxycodone HCl (Oxycodone Hcl Immed Release 5 Mg Tablet) 5 mg PO Q4H PRN PRN Reason: Pain, Moderate (Pain Scale 4-6 Last Admin: 05/09/22 07:29 Dose: 5 mg Documented By: PATTI Pharmacy Consult (Consult Rx Perform Med Rec) 1 each MISCELLANE ONCE PRN PRN Reason: Consult order Rivaroxaban (Rivaroxaban 15 Mg Tablet) 15 mg PO DAILY@1700 [facility] Last Admin: 05/08/22 17:54 Dose: 15 mg Documented By: PATTI Sodium Chloride (0.9 % Sodium Chloride Flush 3 Ml Syringe) 3 ml IVFLUSH QSHIFT [facility] Last Admin: 05/09/22 07:31 Dose: 3 ml Documented By: PATTI Tamsulosin HCl (Tamsulosin Hcl 0.4 Mg Capsule) 0.8 mg PO DAILY [facility] Last Admin: 05/09/22 08:47 Dose: 0.8 mg Documented By: DOBROB Trazodone HCl (Trazodone Hcl 25 Mg Halftab) 12.5 mg PO BID PRN PRN Reason: Pain, Mild (Pain Scale 1-3) Last Admin: 05/07/22 14:18 Dose: 12.5 mg Documented By: GEORGIASCEL Labs 04/30/22 05:39 05/08/22 08:35 Assessment and Plan (1) Dementia with behavioral disturbance: Status: Acute Plan 77yo M with hx chronic HFrEF, AF s/p PPM 2019 AC on rivaroxaban, CKD3, unspecified dementia, brought in after falling in the [place] while intoxicated and developing an open anal wound with fecal drainage admitted for perirectal perforation/cellulitis. He was transferred to intensive care unit overnight of 04/09 for acute hypoxia with pulmonary edema secondary to increased fluid overload,? AFib with RVR briefly requiring BiPAP support for respiratory effort and not for hypercapnia.? He was diuressed with good effect and ult imately taking off bid ? ? bursitis right elbow erythema and edema ortho consult for possible aspiration kpad, pain management DAWIT on CKD3 trending down NSVT. no further episodes asymptomatic daily magnesium continue carvedilol 12.5 b.i.d, digoxin Keep on telemetry Resistant E. coli UTI completed antibiotics. Acute respiratory failure with hypoxia due to heart failure resolved. acute on chronic systolic heart failure EF 15%, required IV diuresis in ICU now on p.o. daily Bumex 1mg Drowsiness resolved avoid sedative medications Perirectal perforation/cellulitis fecal drainage through open perianal wound Persists, cellulitis resolved. Continue perianal hygiene, wound care no acute issues r/t perforation Urinary retention [place] cath prn bladder scan, straight cath PRN Permanent AFIB rate controlled, continue metoprolol, digoxin, continue Xarelto Agitation, hallucinations no new episodes consider zyprexa or seroquel PRN avoid sedative meds. DVT prophylaxis Rivaroxaban DNR/DNI attending - Dr. Barone need for inpatient: awaiting safe discharge plan Time Spent With Patient Time: Total time managing care of this patient today ____ minutes. Quality Stroke Does the patient have a stroke diagnosis?: No VTE Prior VTE?: No VTE Risk Level:: Medical - moderate - high VTE Device Contraindication: N/A - Device Ordered VTE Drug Contraindication: Treatment Not Indicated
[2022-05-09 11:06] VITALS: BP 131/71; PULSE 72; RESP 12; TEMP 36.4; O2SAT 100
--- NOTE | 2022-05-09 13:54 | PM.EVENT ---
Event Note Date of Service: 05/09/22 Event Note: Right elbow bursitis -patient is a poor historian, states he has had elbow pain and swelling for months -denies trauma on exam mild bursitis without warmth, no significant pain with ROM no fluctulance at this time recommend compression no surgical intervention warranted. Time Spent With Patient Time: Total time managing care of this patient today ____ minutes.
[2022-05-09 15:50] VITALS: BP 109/75; PULSE 62; RESP 18; TEMP 36.1; O2SAT 96
[2022-05-09] MEDS: Acetaminophen 325 MG TABLET 650 MG PO (17:19)
[2022-05-09] MEDS: Rivaroxaban 15 MG TABLET PO (18:02)
[2022-05-09] MEDS: Nystatin Powder 15 GM BOTTLE 1 APPL TOPICAL (18:04)
[2022-05-09 19:19] VITALS: BP 127/80; PULSE 68; RESP 18; TEMP 36.6; O2SAT 91
[2022-05-10] VITALS: PULSE 72; RESP 18
[2022-05-10 04:00] VITALS: BP 141/84; PULSE 86; RESP 15; TEMP 36.4; O2SAT 93
[2022-05-10] MEDS: Acetaminophen 325 MG TABLET 650 MG PO (04:29)
[2022-05-10] MEDS: Omeprazole 20 MG CAPSULE.DR PO (06:02)
[2022-05-10 08:00] VITALS: BP 125/88; PULSE 78; RESP 20; TEMP 36.5; O2SAT 92
[2022-05-10] MEDS: Folic Acid 1 MG TABLET PO (09:09)
[2022-05-10] MEDS: Tamsulosin HCL 0.4 MG CAPSULE 0.8 MG PO (09:09)
[2022-05-10] MEDS: Magnesium Oxide 400 MG TABLET PO ×2 (09:09→18:21)
[2022-05-10] MEDS: 0.9 % Sodium Chloride Flush 3 ML SYRINGE IVFLUSH ×3 (09:10→20:56)
[2022-05-10] MEDS: Bumetanide 1 MG TABLET PO (09:10)
[2022-05-10] MEDS: carvediloL 12.5 MG TABLET PO ×2 (09:10→20:56)
[2022-05-10] MEDS: Digoxin 0.125 MG TABLET PO (09:15)
[2022-05-10] MEDS: traZODone HCL 25 MG HALFTAB 12.5 MG PO (09:30)
[2022-05-10 11:18] VITALS: BP 119/86; PULSE 66; RESP 20; TEMP 36.4; O2SAT 97
[2022-05-10] MEDS: oxyCODONE HCl Immed Release 5 MG TABLET PO (13:43)
[2022-05-10] MEDS: Nystatin Powder 15 GM BOTTLE 1 APPL TOPICAL ×3 (13:44→20:56)
--- NOTE | 2022-05-10 14:20 | P.PNIM_ITS ---
Subjective Subjective Date of Service: 05/11/22 Interval History: Being followed for placement, no events overnight, offers no acute complaints this morning tolerating diet, no nausea, no vomiting, no abdominal pain. No fevers, no chills. Review of Systems Review of Systems: Yes all other systems are reviewed and are negative Physical Exam Vital Signs: Vital Signs: Last Vital Signs Temp 97.6 F 05/10/22 11:18 Pulse 66 05/10/22 11:18 Resp 20 05/10/22 11:18 BP 119/86 05/10/22 11:18 Pulse Ox 97 05/10/22 11:18 O2 Del Method 05/10/22 11:18 O2 Flow Rate 2 05/09/22 11:06 FiO2 30 04/10/22 07:00 Oxygen Flow Rate 30 04/10/22 05:25 BMI result Body Mass Index 26.4 Const: Other: General? resting comfortably in no acute distress.? Neck supple no JVD. CVS? regular rate rhythm, Respiratory lungs clear to auscultation, no respiratory distress, no wheeze, no rhonchi. Gastrointestinal abdomen soft, nontender, bowel sounds audible, no guarding , no rigidity. Extremities no? edema. Rectal examination open wound perianal area, no surrounding redness. Neuro nonfocal, moving all 4 extremity, speech clear. Right elbow redness, swelling,slightly warm, pain with range of motion. Psych appropriate affect Objective Data Active Medications Acetaminophen (Acetaminophen 325 Mg Tablet) 650 mg PO Q6H PRN PRN Reason: Pain, Mild (Pain Scale 1-3) Last Admin: 05/10/22 04:29 Dose: 650 mg Documented By: DARRYL Benzonatate (Benzonatate 100 Mg Capsule) 100 mg PO TID PRN PRN Reason: Cough Last Admin: 02/22/22 16:03 Dose: 100 mg Documented By: BOGDAN Bumetanide (Bumetanide 1 Mg Tablet) 1 mg PO DAILY [facility]; Protocol Last Admin: 05/10/22 09:10 Dose: 1 mg Documented By: REBECCA Carvedilol (Carvedilol 12.5 Mg Tablet) 12.5 mg PO BID [facility]; Protocol Last Admin: 05/10/22 09:10 Dose: 12.5 mg Documented By: REBECCA Digoxin (Digoxin 0.125 Mg Tablet) 0.125 mg PO Q2D [facility] Last Admin: 05/10/22 09:15 Dose: 0.125 mg Documented By: REBECCA Docusate Sodium (Docusate Sodium 100 Mg Capsule) 100 mg PO BEDTIME PRN PRN Reason: Constipation Folic Acid (Folic Acid 1 Mg Tablet) 1 mg PO DAILY [facility] Last Admin: 05/10/22 09:09 Dose: 1 mg Documented By: REBECCA Magnesium Oxide (Magnesium Oxide 400 Mg Tablet) 400 mg PO BIDWM [facility] Last Admin: 05/10/22 09:09 Dose: 400 mg Documented By: REBECCA Melatonin (Melatonin 3 Mg Tablet) 3 mg PO BEDTIME PRN PRN Reason: Insomnia Last Admin: 05/07/22 21:02 Dose: 3 mg Documented By: BRET Nystatin (Nystatin Powder 15 Gm Bottle) 1 appl TOPICAL TID [facility]; Protocol Last Admin: 05/10/22 13:44 Dose: 1 appl Documented By: REBECCA Omeprazole (Omeprazole 20 Mg Capsule.Dr) 20 mg PO DAILY@0630 [facility] Last Admin: 05/10/22 06:02 Dose: 20 mg Documented By: DARRYL Ondansetron HCl (Ondansetron Hcl 4 Mg/2 Ml Vial) 4 mg IVPUSH Q8H PRN PRN Reason: Nausea and Vomiting Last Admin: 04/24/22 20:42 Dose: 4 mg Documented By: CRISTOFER Oxycodone HCl (Oxycodone Hcl Immed Release 5 Mg Tablet) 5 mg PO Q4H PRN PRN Reason: Pain, Moderate (Pain Scale 4-6 Last Admin: 05/10/22 13:43 Dose: 5 mg Documented By: REBECCA Pharmacy Consult (Consult Rx Perform Med Rec) 1 each MISCELLANE ONCE PRN PRN Reason: Consult order Rivaroxaban (Rivaroxaban 15 Mg Tablet) 15 mg PO DAILY@1700 [facility] Last Admin: 05/09/22 18:02 Dose: 15 mg Documented By: BROPily Sodium Chloride (0.9 % Sodium Chloride Flush 3 Ml Syringe) 3 ml IVFLUSH QSHIFT [facility] Last Admin: 05/10/22 09:10 Dose: 3 ml Documented By: REBECCA Tamsulosin HCl (Tamsulosin Hcl 0.4 Mg Capsule) 0.8 mg PO DAILY [facility] Last Admin: 05/10/22 09:09 Dose: 0.8 mg Documented By: REBECCA Trazodone HCl (Trazodone Hcl 25 Mg Halftab) 12.5 mg PO BID PRN PRN Reason: Pain, Mild (Pain Scale 1-3) Last Admin: 05/10/22 09:30 Dose: 12.5 mg Documented By: REBECCA Labs 04/30/22 05:39 05/08/22 08:35 Assessment and Plan (1) Dementia with behavioral disturbance: Status: Acute Plan 77yo M with hx chronic HFrEF, AF s/p PPM 2019 AC on rivaroxaban, CKD3, unspec ified dementia, brought in after falling [place] the [place] while intoxicated and developing an open anal wound with fecal drainage admitted for perirectal perforation/cellulitis. He was transferred to intensive care unit overnight of 04/09 for acute hypoxia with pulmonary edema secondary to increased fluid overload,? AFib with RVR briefly requiring BiPAP support for respiratory effort and not for hypercapnia.? He was diuressed with good effect and ultimately taking off bid ? right elbow pain Likely due to olecranon bursitis Seen by Ortho diagnosed to have mild bursitis recommend warm compresses, due to renal failure, will consider steroids if not better, will minimize right right elbow activity. DAWIT on CKD3 trending down , will follows BMP at a.m. NSVT. Had an episode on May 09 noted to have 12 beats run of V-tach asymptomatic Continue magnesium supplement, continue carvedilol 12.5 b.i.d, digoxin every other day. Resistant E. coli UTI completed antibiotics. Acute respiratory failure with hypoxia due to heart failure resolved. acute on chronic systolic heart failure EF 15%, required IV diuresis in ICU now on p.o. daily Bumex 1mg Drowsiness resolved, will avoid sedative medications Perirectal perforation/cellulitis fecal drainage through open perianal wound Persists, cellulitis resolved. Continue perianal hygiene, wound care Urinary retention prn bladder scan, straight cath PRN, continue Flomax Permanent AFIB rate controlled, continue Eliquis, digoxin, continue Xarelto Agitation, hallucinations no recurrent episodes , on trazodone 12.5 mg by mouth b.i.d. as needed avoid sedative meds. DVT prophylaxis Rivaroxaban DNR/DNI need for inpatient: awaiting safe discharge plan Time Spent With Patient Time: Total time managing care of this patient today ____ minutes. Quality Stroke Does the patient have a stroke diagnosis?: No VTE Prior VTE?: No VTE Risk Level:: Medical - moderate - high VTE Device Contraindication: N/A - Device Ordered VTE Drug Contraindication: Treatment Not Indicated
[2022-05-10 15:36] VITALS: BP 123/89; PULSE 68; RESP 16; TEMP 36.6; O2SAT 96
[2022-05-10] MEDS: Rivaroxaban 15 MG TABLET PO (18:21)
[2022-05-10 18:59] VITALS: BP 143/88; PULSE 63; RESP 15; TEMP 36.4; O2SAT 93
[2022-05-11] VITALS (7 sets, daily range): BP systolic 111–137; BP diastolic 77–94; PULSE 64–92; RESP 16–20; TEMP 36.1–37.1; O2SAT 91–96
[2022-05-11] MEDS: Omeprazole 20 MG CAPSULE.DR PO (05:23)
[2022-05-11 06:51] LABS: Anion Gap 18 (12-20); Blood Urea Nitrogen 28 mg/dL (9-16); Calcium 9.3 mg/dL (8.4-10.2); Carbon Dioxide 27 mmol/L (22-29); Chloride 101 mmol/L (96-108); Creatinine Clr Calc Pharmacy 44.9; Estimated Glomerular Filt Rate 48; Glucose Random 101 mg/dL (60-115); Potassium 3.5 mmol/L (3.3-5.1); Sodium 142 mmol/L (135-145)
[2022-05-11] MEDS: Folic Acid 1 MG TABLET PO (09:55)
[2022-05-11] MEDS: Tamsulosin HCL 0.4 MG CAPSULE 0.8 MG PO (09:55)
[2022-05-11] MEDS: Magnesium Oxide 400 MG TABLET PO ×2 (09:55→17:58)
[2022-05-11] MEDS: Bumetanide 1 MG TABLET PO (09:55)
[2022-05-11] MEDS: carvediloL 12.5 MG TABLET PO ×2 (09:56→21:46)
[2022-05-11] MEDS: 0.9 % Sodium Chloride Flush 3 ML SYRINGE IVFLUSH ×3 (09:56→21:48)
[2022-05-11] MEDS: Nystatin Powder 15 GM BOTTLE 1 APPL TOPICAL ×3 (10:02→21:49)
--- NOTE | 2022-05-11 10:50 | P.PNIM_ITS ---
Subjective Subjective Date of Service: 05/11/22 Interval History: Offers no acute complaints, complained of right elbow pain on examination, vitals are stable tolerating diet with no nausea, no vomiting, no abdominal pain moving bowels, no other acute issues overnight. Review of Systems Review of Systems: Yes all other systems are reviewed and are negative Physical Exam Vital Signs: Vital Signs: Last Vital Signs Temp 98.7 F 05/11/22 07:30 Pulse 87 05/11/22 07:30 Resp 20 05/11/22 07:30 BP 125/88 05/11/22 07:30 Pulse Ox 95 05/11/22 07:30 O2 Del Method 05/11/22 07:30 O2 Flow Rate 2 05/09/22 11:06 FiO2 30 04/10/22 07:00 Oxygen Flow Rate 30 04/10/22 05:25 BMI result Body Mass Index 26.4 Const: Other: General? resting comfortably in no acute distress.? Neck supple no JVD. CVS? regular rate rhythm, Respiratory lungs clear to auscultation, no respiratory distress, no wheeze, no rhonchi. Gastrointestinal abdomen soft, nontender, bowel sounds audible, no guarding , no rigidity. Extremities no? edema. Rectal examination open wound perianal area, no surrounding redness. Neuro nonfocal, moving all 4 extremity, speech clear. Right elbow redness, swelling,slightly warm, pain with examination. Psych appropriate affect Objective Data Active Medications Acetaminophen (Acetaminophen 325 Mg Tablet) 650 mg PO Q6H PRN PRN Reason: Pain, Mild (Pain Scale 1-3) Last Admin: 05/10/22 04:29 Dose: 650 mg Documented By: DARRYL Benzonatate (Benzonatate 100 Mg Capsule) 100 mg PO TID PRN PRN Reason: Cough Last Admin: 02/22/22 16:03 Dose: 100 mg Documented By: BOGDAN Bumetanide (Bumetanide 1 Mg Tablet) 1 mg PO DAILY [facility]; Protocol Last Admin: 05/11/22 09:55 Dose: 1 mg Documented By: BAYRON Carvedilol (Carvedilol 12.5 Mg Tablet) 12.5 mg PO BID [facility]; Protocol Last Admin: 05/11/22 09:56 Dose: 12.5 mg Documented By: BAYRON Digoxin (Digoxin 0.125 Mg Tablet) 0.125 mg PO Q2D [facility] Last Admin: 05/10/22 09:15 Dose: 0.125 mg Documented By: REBECCA Docusate Sodium (Docusate Sodium 100 Mg Capsule) 100 mg PO BEDTIME PRN PRN Reason: Constipation Folic Acid (Folic Acid 1 Mg Tablet) 1 mg PO DAILY [facility] Last Admin: 05/11/22 09:55 Dose: 1 mg Documented By: BAYRON Magnesium Oxide (Magnesium Oxide 400 Mg Tablet) 400 mg PO BIDWM [facility] Last Admin: 05/11/22 09:55 Dose: 400 mg Documented By: BAYRON Melatonin (Melatonin 3 Mg Tablet) 3 mg PO BEDTIME PRN PRN Reason: Insomnia Last Admin: 05/07/22 21:02 Dose: 3 mg Documented By: BRET Nystatin (Nystatin Powder 15 Gm Bottle) 1 appl TOPICAL TID [facility]; Protocol Last Admin: 05/11/22 10:02 Dose: 1 appl Documented By: BAYRON Omeprazole (Omeprazole 20 Mg Capsule.Dr) 20 mg PO DAILY@0630 [facility] Last Admin: 05/11/22 05:23 Dose: 20 mg Documented By: KIMBERLY Ondansetron HCl (Ondansetron Hcl 4 Mg/2 Ml Vial) 4 mg IVPUSH Q8H PRN PRN Reason: Nausea and Vomiting Last Admin: 04/24/22 20:42 Dose: 4 mg Documented By: CRISTOFER Oxycodone HCl (Oxycodone Hcl Immed Release 5 Mg Tablet) 5 mg PO Q4H PRN PRN Reason: Pain, Moderate (Pain Scale 4-6 Last Admin: 05/10/22 13:43 Dose: 5 mg Documented By: REBECCA Pharmacy Consult (Consult Rx Perform Med Rec) 1 each MISCELLANE ONCE PRN PRN Reason: Consult order Potassium Chloride (Potassium Chloride Er 10 Meq Capsule.Er) 10 meq PO DAILY [facility] Rivaroxaban (Rivaroxaban 15 Mg Tablet) 15 mg PO DAILY@1700 [facility] Last Admin: 05/10/22 18:21 Dose: 15 mg Documented By: REBECCA Sodium Chloride (0.9 % Sodium Chloride Flush 3 Ml Syringe) 3 ml IVFLUSH QSHIFT [facility] Last Admin: 05/11/22 09:56 Dose: 3 ml Documented By: BAYRON Tamsulosin HCl (Tamsulosin Hcl 0.4 Mg Capsule) 0.8 mg PO DAILY [facility] Last Admin: 05/11/22 09:55 Dose: 0.8 mg Documented By: BAYRON Trazodone HCl (Trazodone Hcl 25 Mg Halftab) 12.5 mg PO BID PRN PRN Reason: Pain, Mild (Pain Scale 1-3) Last Admin: 05/10/22 09:30 Dose: 12.5 mg Documented By: REBECCA Labs 04/30/22 05:39 05/11/22 06:13 Labs: Laboratory Results - last 24 hr 05/11/22 06:13 Anion Gap 18 Estim Creat Clear Calc 44.9 Estimated GFR 48 Random Glucose 101 Calcium 9.3 Assessment and Plan (1) Dementia with behavioral disturbance: Status: Acute Plan 77yo M with hx chronic HFrEF, AF s/p PPM 2019 AC on rivaroxaban, CKD3, unspecified dementia, brought in after falling in the [place] while intoxicated and developing an open anal wound with fecal drainage admitted for perirectal perforation/cellulitis. He was transferred to intensive care unit overnight of 04/09 for acute hypoxia with pulmonary edema secondary to increased fluid overload,? AFib with RVR briefly requiring BiPAP support for respiratory effort and not for hypercapnia.? He was diuressed with good effect and ul timately taking off bid ? right elbow pain Likely due to olecranon bursitis , will apply compresses hold NSAIDs due to renal injury, will give prednisone, seen by Ortho no intervention recommended. DAWIT on CKD3 Unchanged creatinine likely new baseline while being diuresed. Follow BMP closely. NSVT. Had an episode on May 09 noted to have 12 beats run of V-tach asymptomatic Continue magnesium supplement, keep potassium 4, magnesium around 2, continue carvedilol 12.5 b.i.d, digoxin every other day. Resistant E. coli UTI completed antibiotics. Acute respiratory failure with hypoxia due to heart failure resolved. acute on chronic systolic heart failure EF 15%, required IV diuresis in ICU now on p.o. daily Bumex 1mg Drowsiness resolved, will avoid sedative medications Perirectal perforation/cellulitis fecal drainage through open perianal wound Persists, cellulitis resolved. Continue perianal hygiene, wound care Urinary retention prn bladder scan, straight cath PRN, continue Flomax Permanent AFIB rate controlled, continue Eliquis, digoxin, continue Xarelto Agitation, hallucinations no recurrent episodes , on trazodone 12.5 mg by mouth b.i.d. as needed avoid sedative meds. DVT prophylaxis Rivaroxaban DNR/DNI need for inpatient: awaiting safe discharge plan Time Spent With Patient Time: Total time managing care of this patient today ____ minutes. Quality Stroke Does the patient have a stroke diagnosis?: No VTE Prior VTE?: No VTE Risk Level:: Medical - moderate - high VTE Device Contraindication: N/A - Device Ordered VTE Drug Contraindication: Treatment Not Indicated
[2022-05-11] MEDS: Acetaminophen 325 MG TABLET 650 MG PO (11:34)
[2022-05-11] MEDS: predniSONE 10 MG TABLET PO (11:35)
[2022-05-11] MEDS: Rivaroxaban 15 MG TABLET PO (17:58)
--- NOTE | 2022-05-11 22:26 | PM.PNORT ---
Subjective Subjective Date of Service: 05/09/22 Physical Exam Vital Signs: Vital Signs: Last Vital Signs Temp 96.9 F 05/11/22 19:20 Pulse 78 05/11/22 19:20 Resp 16 05/11/22 19:20 BP 125/77 05/11/22 19:20 Pulse Ox 96 05/11/22 19:20 O2 Del Method 05/11/22 19:20 O2 Flow Rate 2 05/09/22 11:06 FiO2 30 04/10/22 07:00 Oxygen Flow Rate 30 04/10/22 05:25 BMI result Body Mass Index 26.4 Progress Note: A&P Time Spent With Patient Time: Total time managing care of this patient today ____ minutes. Quality Stroke Does the patient have a stroke diagnosis?: No VTE Prior VTE?: No VTE Risk Level:: Medical - moderate - high VTE Device Contraindication: N/A - Device Ordered VTE Drug Contraindication: Treatment Not Indicated
[2022-05-12] MEDS: oxyCODONE HCl Immed Release 5 MG TABLET PO ×3 (01:55→20:09)
[2022-05-12 03:21] VITALS: BP 109/74; PULSE 64; RESP 18; TEMP 36.5; O2SAT 97
[2022-05-12] MEDS: Omeprazole 20 MG CAPSULE.DR PO (05:45)
--- NOTE | 2022-05-12 07:12 | MHC.CM.PN ---
PT is recommending LTC and Patient now has [facility]. The broad SNF search referrals have been updated and CM will continue to follow.
[2022-05-12 07:20] VITALS: BP 117/86; PULSE 61; RESP 20; TEMP 36.1; O2SAT 94
--- NOTE | 2022-05-12 09:20 | P.CONOP_ITS ---
History of Present Illness HPI Consult date: 05/09/22 Chief complaint: CHF Narrative: Right elbow bursitis -patient is a poor historian, states he has had elbow pain and swelling for months -denies trauma. states he has pain when he puts pressure on the elbow. Review of Systems Review of Systems: per hpi [facility] Past Medical History Medical History Afib Alcohol abuse Anticoagulant long-term use BPH (benign prostatic hyperplasia) Cardiomyopathy CKD (chronic kidney disease) ESBL (extended spectrum beta-lactamase) producing bacteria infection HTN (hypertension) Pacemaker Family History Family History Mother Lung abnormality Family history: reviewed and not pertinent Social History Social History Household Members: Unknown / Unable to assess Housing: Unknown / Unable to assess Unable to assess alcohol history related to: Refusing to respond Alcohol intake: former Patient Tobacco Use Status: Former Tobacco user service: No Meds Allergies Allergy/AdvReac Type Severity Reaction Status Date / Time No Known Allergies Allergy Verified 02/17/22 12:33 Active Medications: Current Medications Acetaminophen (Acetaminophen 325 Mg Tablet) 650 mg PO Q6H PRN PRN Reason: Pain, Mild (Pain Scale 1-3) Last Admin: 05/11/22 11:34 Dose: 650 mg Benzonatate (Benzonatate 100 Mg Capsule) 100 mg PO TID PRN PRN Reason: Cough Last Admin: 02/22/22 16:03 Dose: 100 mg Bumetanide (Bumetanide 1 Mg Tablet) 1 mg PO DAILY [facility]; Protocol Last Admin: 05/11/22 09:55 Dose: 1 mg Carvedilol (Carvedilol 12.5 Mg Tablet) 12.5 mg PO BID [facility]; Protocol Last Admin: 05/11/22 21:46 Dose: 12.5 mg Digoxin (Digoxin 0.125 Mg Tablet) 0.125 mg PO Q2D [facility] Last Admin: 05/10/22 09:15 Dose: 0.125 mg Docusate Sodium (Docusate Sodium 100 Mg Capsule) 100 mg PO BEDTIME PRN PRN Reason: Constipation Folic Acid (Folic Acid 1 Mg Tablet) 1 mg PO DAILY [facility] Last Admin: 05/11/22 09:55 Dose: 1 mg Magnesium Oxide (Magnesium Oxide 400 Mg Tablet) 400 mg PO BIDWM [facility] Last Admin: 05/11/22 17:58 Dose: 400 mg Melatonin (Melatonin 3 Mg Tablet) 3 mg PO BEDTIME PRN PRN Reason: Insomnia Last Admin: 05/07/22 21:02 Dose: 3 mg Nystatin (Nystatin Powder 15 Gm Bottle) 1 appl TOPICAL TID [facility]; Protocol Last Admin: 05/11/22 21:49 Dose: 1 appl Omeprazole (Omeprazole 20 Mg Capsule.Dr) 20 mg PO DAILY@0630 [facility] Last Admin: 05/12/22 05:45 Dose: 20 mg Ondansetron HCl (Ondansetron Hcl 4 Mg/2 Ml Vial) 4 mg IVPUSH Q8H PRN PRN Reason: Nausea and Vomiting Last Admin: 04/24/22 20:42 Dose: 4 mg Oxycodone HCl (Oxycodone Hcl Immed Release 5 Mg Tablet) 5 mg PO Q4H PRN PRN Reason: Pain, Moderate (Pain Scale 4-6 Last Admin: 05/12/22 05:44 Dose: 5 mg Pharmacy Consult (Consult Rx Perform Med Rec) 1 each MISCELLANE ONCE PRN PRN Reason: Consult order Potassium Chloride (Potassium Chloride Er 10 Meq Capsule.Er) 10 meq PO DAILY [facility] Last Admin: 05/11/22 11:35 Dose: 10 meq Prednisone (Prednisone 10 Mg Tablet) 10 mg PO DAILY [facility] Last Admin: 05/11/22 11:35 Dose: 10 mg Rivaroxaban (Rivaroxaban 15 Mg Tablet) 15 mg PO DAILY@1700 [facility] Last Admin: 05/11/22 17:58 Dose: 15 mg Sodium Chloride (0.9 % Sodium Chloride Flush 3 Ml Syringe) 3 ml IVFLUSH QSHIFT [facility] Last Admin: 05/11/22 21:48 Dose: 3 ml Tamsulosin HCl (Tamsulosin Hcl 0.4 Mg Capsule) 0.8 mg PO DAILY [facility] Last Admin: 05/11/22 09:55 Dose: 0.8 mg Trazodone HCl (Trazodone Hcl 25 Mg Halftab) 12.5 mg PO BID PRN PRN Reason: Pain, Mild (Pain Scale 1-3) Last Admin: 05/10/22 09:30 Dose: 12.5 mg Home Medications Medication Instructions Recorded Confirmed Last Taken Type acetaminophen 325 mg tablet 650 mg PO Q6H PRN Pain 02/17/22 02/17/22 Unknown History carvedilol 6.25 mg tablet 1 tab PO BID 02/17/22 02/17/22 02/17/22 History enalapril maleate 2.5 mg tablet 1 tab PO BID 02/17/22 02/17/22 02/17/22 History folic acid 1 mg tablet 1 tab PO DAILY 02/17/22 02/17/22 02/17/22 History furosemide 80 mg tablet 1 tab PO BID 02/17/22 02/17/22 02/17/22 History omeprazole 20 mg capsule,delayed 20 mg PO DAILY@0630 02/17/22 02/17/22 Unknown History release rivaroxaban 15 mg tablet (Xarelto) 15 mg PO DAILY@1700 02/17/22 02/17/22 Unknown History spironolactone 25 mg tablet 1 tab PO DAILY 02/17/22 02/17/22 02/17/22 History tamsulosin 0.4 mg capsule 1 cap PO DAILY 02/17/22 02/17/22 02/17/22 History Physical Exam Vital Signs: Vital Signs: Last Vital Signs Temp 97.0 F 05/12/22 07:20 Pulse 61 05/12/22 07:20 Resp 20 05/12/22 07:20 BP 117/86 05/12/22 07:20 Pulse Ox 94 05/12/22 07:20 O2 Del Method 05/12/22 07:20 O2 Flow Rate 2 05/09/22 11:06 FiO2 30 04/10/22 07:00 Oxygen Flow Rate 30 04/10/22 05:25 BMI result Body Mass Index 26.4 Extrem: Other: on exam mild bursitis without warmth, no significant pain with ROM no fluctulance Results Labs 04/30/22 05:39 05/11/22 06:13 Labs: H & H 02/17/22 02/18/22 02/22/22 Range/Units 14:05 06:19 10:38 Hgb 12.9 L 11.4 L 11.0 L (14.0-18.0) g/dl Hct 38.7 L 34.2 L 33.8 L (42.0-52.0) % 02/23/22 02/26/22 03/15/22 Range/Units 06:28 14:36 06:34 Hgb 11.5 L 11.3 L 9.9 L (14.0-18.0) g/dl Hct 34.5 L 34.9 L 30.7 L (42.0-52.0) % 03/18/22 03/29/22 04/10/22 Range/Units 05:39 14:55 04:18 Hgb 10.1 L 10.5 L 11.4 L (14.0-18.0) g/dl Hct 31.3 L 33.2 L 35.7 L (42.0-52.0) % 04/11/22 04/30/22 Range/Units 03:34 05:39 Hgb 11.7 L 10.5 L (14.0-18.0) g/dl Hct 37.2 L 34.1 L (42.0-52.0) % Coagulation 02/17/22 Range/Units 13:05 INR 1.2 H (0.9-1.1) All other labs normal. Assessment and Plan (1) Olecranon bursitis of right elbow: Status: Acute Plan at this time recommend compression no surgical intervention warranted. if there are a change in symptoms ie: redness, warmth or pain please re consult Time Spent With Patient Time: Total time managing care of this patient today ____ minutes. Procedures Date of Service Date of Service: 05/09/22
[2022-05-12] MEDS: Tamsulosin HCL 0.4 MG CAPSULE 0.8 MG PO (09:33)
[2022-05-12] MEDS: Bumetanide 1 MG TABLET PO (09:34)
[2022-05-12] MEDS: Magnesium Oxide 400 MG TABLET PO ×2 (09:35→17:36)
[2022-05-12] MEDS: predniSONE 10 MG TABLET PO (09:35)
[2022-05-12] MEDS: Folic Acid 1 MG TABLET PO (09:35)
[2022-05-12] MEDS: 0.9 % Sodium Chloride Flush 3 ML SYRINGE IVFLUSH ×2 (09:36→17:37)
[2022-05-12] MEDS: carvediloL 12.5 MG TABLET PO ×2 (09:36→20:08)
[2022-05-12] MEDS: Nystatin Powder 15 GM BOTTLE 1 APPL TOPICAL ×2 (09:46→20:14)
[2022-05-12] MEDS: Digoxin 0.125 MG TABLET PO (09:49)
[2022-05-12 11:19] VITALS: BP 117/79; PULSE 62; RESP 20; TEMP 36.3; O2SAT 94
--- NOTE | 2022-05-12 15:11 | P.PNIM_ITS ---
Subjective Subjective Date of Service: 05/12/22 Interval History: Being followed for placement, offers no acute complaints noted to have concentrated urine, with foul odor, no fevers no chills, no acute events overnight, right elbow swelling improving. Patient tolerating diet. Review of Systems Review of Systems: Yes all other systems are reviewed and are negative Physical Exam Vital Signs: Vital Signs: Last Vital Signs Temp 97.4 F 05/12/22 11:19 Pulse 62 05/12/22 11:19 Resp 20 05/12/22 11:19 BP 117/79 05/12/22 11:19 Pulse Ox 94 05/12/22 11:19 O2 Del Method 05/12/22 11:19 O2 Flow Rate 2 05/09/22 11:06 FiO2 30 04/10/22 07:00 Oxygen Flow Rate 30 04/10/22 05:25 BMI result Body Mass Index 26.4 Const: Other: General? resting c omfortably in no a cute distress.? Ne ck supple no JVD. CVS? regular rate rhythm, Respirator y lungs clear to a uscultation, no re spiratory distress , no wheeze, no rh onchi. Gastrointes tinal abdomen soft , nontender, bowel sounds audible, n o guarding , no ri gidity. Extremitie s no? edema. Recta l examination open wound perianal ar ea, no surrounding redness. Neuro no nfocal, moving all 4 extremity, spee ch clear. Right el bow redness, swell ing,improving . Ps ych appropriate af fect Objective Data Active Medications Acetaminophen (Acetaminophen 325 Mg Tablet) 650 mg PO Q6H PRN PRN Reason: Pain, Mild (Pain Scale 1-3) Last Admin: 05/11/22 11:34 Dose: 650 mg Documented By: BAYRON Benzonatate (Benzonatate 100 Mg Capsule) 100 mg PO TID PRN PRN Reason: Cough Last Admin: 02/22/22 16:03 Dose: 100 mg Documented By: BOGDAN Bumetanide (Bumetanide 1 Mg Tablet) 1 mg PO DAILY [facility]; Protocol Last Admin: 05/12/22 09:34 Dose: 1 mg Documented By: BAYRON Carvedilol (Carvedilol 12.5 Mg Tablet) 12.5 mg PO BID [facility]; Protocol Last Admin: 05/12/22 09:36 Dose: 12.5 mg Documented By: BAYRON Digoxin (Digoxin 0.125 Mg Tablet) 0.125 mg PO Q2D [facility] Last Admin: 05/12/22 09:49 Dose: 0.125 mg Documented By: BAYRON Docusate Sodium (Docusate Sodium 100 Mg Capsule) 100 mg PO BEDTIME PRN PRN Reason: Constipation Folic Acid (Folic Acid 1 Mg Tablet) 1 mg PO DAILY [facility] Last Admin: 05/12/22 09:35 Dose: 1 mg Documented By: BAYRON Magnesium Oxide (Magnesium Oxide 400 Mg Tablet) 400 mg PO BIDWM [facility] Last Admin: 05/12/22 09:35 Dose: 400 mg Documented By: BAYRON Melatonin (Melatonin 3 Mg Tablet) 3 mg PO BEDTIME PRN PRN Reason: Insomnia Last Admin: 05/07/22 21:02 Dose: 3 mg Documented By: BRET Nystatin (Nystatin Powder 15 Gm Bottle) 1 appl TOPICAL TID [facility]; Protocol Last Admin: 05/12/22 09:46 Dose: 1 appl Documented By: BAYRON Omeprazole (Omeprazole 20 Mg Capsule.Dr) 20 mg PO DAILY@0630 [facility] Last Admin: 05/12/22 05:45 Dose: 20 mg Documented By: DANICA Ondansetron HCl (Ondansetron Hcl 4 Mg/2 Ml Vial) 4 mg IVPUSH Q8H PRN PRN Reason: Nausea and Vomiting Last Admin: 04/24/22 20:42 Dose: 4 mg Documented By: FLORESITAAKJ Oxycodone HCl (Oxycodone Hcl Immed Release 5 Mg Tablet) 5 mg PO Q4H PRN PRN Reason: Pain, Moderate (Pain Scale 4-6 Last Admin: 05/12/22 05:44 Dose: 5 mg Documented By: DANICA Pharmacy Consult (Consult Rx Perform Med Rec) 1 each MISCELLANE ONCE PRN PRN Reason: Consult order Potassium Chloride (Potassium Chloride Er 10 Meq Capsule.Er) 10 meq PO DAILY [facility] Last Admin: 05/12/22 09:34 Dose: 10 meq Documented By: BAYRON Prednisone (Prednisone 10 Mg Tablet) 10 mg PO DAILY [facility] Last Admin: 05/12/22 09:35 Dose: 10 mg Documented By: BAYRON Rivaroxaban (Rivaroxaban 15 Mg Tablet) 15 mg PO DAILY@1700 [facility] Last Admin: 05/11/22 17:58 Dose: 15 mg Documented By: BAYRON Sodium Chloride (0.9 % Sodium Chloride Flush 3 Ml Syringe) 3 ml IVFLUSH QSHIFT [facility] Last Admin: 05/12/22 09:36 Dose: 3 ml Documented By: BAYRON Tamsulosin HCl (Tamsulosin Hcl 0.4 Mg Capsule) 0.8 mg PO DAILY [facility] Last Admin: 05/12/22 09:33 Dose: 0.8 mg Documented By: BAYRON Trazodone HCl (Trazodone Hcl 25 Mg Halftab) 12.5 mg PO BID PRN PRN Reason: Pain, Mild (Pain Scale 1-3) Last Admin: 05/10/22 09:30 Dose: 12.5 mg Documented By: REBECCA Labs 04/30/22 05:39 05/11/22 06:13 Assessment and Plan (1) Dementia with behavioral disturbance: Status: Acute Plan 77yo M with hx chronic HFrEF, AF s/p PPM 2019 AC on rivaroxaban, CKD3, unspecified dementia, brought in after falling in the [place] while intoxicated and developing an open anal wound with fecal drainage admitted for perirectal perforation/cellulitis. He was transferred to intensive care unit overnight of 04/09 for acute hypoxia with pulmonary edema secondary to increased fluid overload,? AFib with RVR briefly requiring BiPAP support for respiratory effort and not for hypercapnia.? He was diuressed with good effect and ultimately taking off bid ? right elbow pain Likely due to olecranon bursitis , cont. prednisone,rest, seen by Ortho no intervention recommended. DAWIT on CKD3 Unchanged creatinine likely new baseline while being diuresed. Follow BMP closely will lower dose of bumex if noted to have a rise in creat. NSVT. Had an episode on May 09 noted to have 12 beats run of V-tach, asymptomatic Continue magnesium supplement, keep potassium 4, magnesium around 2, continue carvedilol 12.5 b.i.d, digoxin every other day. 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 coli UTI completed antibiotics. Noted to have consent treated urine with foul odor will recheck urinalysis. Acute respiratory failure with hypoxia due to heart failure resolved. acute on chronic systolic heart failure EF 15%, required IV diuresis in ICU now on p.o. daily Bumex 1mg Drowsiness resolved, will avoid sedative medications Perirectal perforation/cellulitis fecal drainage through open perianal wound Persists, cellulitis resolved. Continue perianal hygiene, wound care Urinary retention prn bladder scan, straight cath PRN, continue Flomax Permanent AFIB rate controlled, continue Eliquis, digoxin, continue Xarelto Agitation, hallucinations no recurrent episodes , on trazodone 12.5 mg by mouth b.i.d. as needed avoid sedative meds. DVT prophylaxis Rivaroxaban DNR/DNI need for inpatient: awaiting safe discharge plan Time Spent With Patient Time: Total time managing care of this patient today ____ minutes. Quality Stroke Does the patient have a stroke diagnosis?: No VTE Prior VTE?: No VTE Risk Level:: Medical - moderate - high VTE Device Contraindication: N/A - Device Ordered VTE Drug Contraindication: Treatment Not Indicated
[2022-05-12 15:37] VITALS: BP 125/89; PULSE 76; RESP 19; TEMP 36.7; O2SAT 95
[2022-05-12 15:54] LABS: Appearance Urine Cloudy; Color Urine Yellow; Glucose Urine UA Negative (Negative); Leukocyte Esterase Urine Large (3+) (Negative); Nitrite Urine Negative (Negative); PH 7.5 (5.0-9.0); UMIC TRIGGER UACC YES; Urine Blood Moderate (2+) (Negative); Urine Ketones Negative (Negative); Urine Protein Negative (Neg-Trace)
[2022-05-12 16:03] LABS: Bacteria Urine 4+ (None Seen); Squamous Epithelial Cell Urine 0-2 /HPF (0-2); UACC Culture Trigger YES; WBC Urine >50 /HPF (0-5)
[2022-05-12] MEDS: Rivaroxaban 15 MG TABLET PO (17:36)
[2022-05-12 19:18] VITALS: BP 124/79; PULSE 65; RESP 17; TEMP 36.3; O2SAT 95
[2022-05-12] MEDS: traZODone HCL 25 MG HALFTAB 12.5 MG PO (20:08)
[2022-05-12] MEDS: Melatonin 3 MG TABLET PO (20:11)
[2022-05-13] MEDS: 0.9 % Sodium Chloride Flush 3 ML SYRINGE IVFLUSH ×2 (03:50→09:08)
[2022-05-13 04:00] VITALS: BP 114/84; PULSE 61; RESP 18; TEMP 36.6; O2SAT 98
[2022-05-13] MEDS: oxyCODONE HCl Immed Release 5 MG TABLET PO ×3 (05:07→20:23)
[2022-05-13] MEDS: Omeprazole 20 MG CAPSULE.DR PO (05:14)
[2022-05-13 07:16] VITALS: BP 133/75; PULSE 68; RESP 18; TEMP 36.6; O2SAT 100
[2022-05-13] MEDS: Magnesium Oxide 400 MG TABLET PO ×2 (09:07→17:09)
[2022-05-13] MEDS: Tamsulosin HCL 0.4 MG CAPSULE 0.8 MG PO (09:07)
[2022-05-13] MEDS: carvediloL 12.5 MG TABLET PO ×2 (09:07→20:23)
[2022-05-13] MEDS: Folic Acid 1 MG TABLET PO (09:08)
[2022-05-13] MEDS: Bumetanide 1 MG TABLET PO (09:08)
[2022-05-13] MEDS: predniSONE 10 MG TABLET PO (09:08)
[2022-05-13] MEDS: Nystatin Powder 15 GM BOTTLE 1 APPL TOPICAL ×3 (09:20→20:25)
--- NOTE | 2022-05-13 09:47 | HO.PM.IMPN ---
Subjective Subjective Date of Service: 05/13/22 Interval History: Patient awake alert, complaining of generalized pain requesting for pain medicine to make him feel better, right elbow pain has improved, tolerating diet no nausea, no vomiting no abdominal pain, is incontinent of stools. Review of Systems Review of Systems: Yes all other systems are reviewed and are negative Physical Exam Vital Signs: Vital Signs: Last Vital Signs Temp 98 F 05/13/22 07:16 Pulse 68 05/13/22 07:16 Resp 18 05/13/22 07:16 BP 133/75 05/13/22 07:16 Pulse Ox 100 05/13/22 07:16 O2 Del Method 05/13/22 07:16 O2 Flow Rate 2 05/09/22 11:06 FiO2 30 04/10/22 07:00 Oxygen Flow Rate 30 04/10/22 05:25 BMI result Body Mass Index 26.4 Const: Other: General? resting comfortably in no acute distress.? Neck supple no JVD. CVS? regular rate rhythm, Respiratory lungs clear to auscultation, no respiratory distress, no wheeze, no rhonchi. Gastrointestinal abdomen soft, nontender, bowel sounds audible, no guarding , no rigidity. Extremities no? edema. Rectal examination open wound perianal area, no surrounding redness. Neuro nonfocal, moving all 4 extremity, speech clear. Right elbow redness, swelling, improving, nontender. Psych appropriate affect Objective Data Active Medications Acetaminophen (Acetaminophen 325 Mg Tablet) 650 mg PO Q6H PRN PRN Reason: Pain, Mild (Pain Scale 1-3) Last Admin: 05/11/22 11:34 Dose: 650 mg Documented By: BAYRON Benzonatate (Benzonatate 100 Mg Capsule) 100 mg PO TID PRN PRN Reason: Cough Last Admin: 02/22/22 16:03 Dose: 100 mg Documented By: BOGDAN Bumetanide (Bumetanide 1 Mg Tablet) 1 mg PO DAILY [facility]; Protocol Last Admin: 05/13/22 09:08 Dose: 1 mg Documented By: BAYRON Carvedilol (Carvedilol 12.5 Mg Tablet) 12.5 mg PO BID [facility]; Protocol Last Admin: 05/13/22 09:07 Dose: 12.5 mg Documented By: BAYRON Digoxin (Digoxin 0.125 Mg Tablet) 0.125 mg PO Q2D [facility] Last Admin: 05/12/22 09:49 Dose: 0.125 mg Documented By: BAYRON Docusate Sodium (Docusate Sodium 100 Mg Capsule) 100 mg PO BEDTIME PRN PRN Reason: Constipation Folic Acid (Folic Acid 1 Mg Tablet) 1 mg PO DAILY [facility] Last Admin: 05/13/22 09:08 Dose: 1 mg Documented By: BAYRON Magnesium Oxide (Magnesium Oxide 400 Mg Tablet) 400 mg PO BIDWM [facility] Last Admin: 05/13/22 09:07 Dose: 400 mg Documented By: BAYRON Melatonin (Melatonin 3 Mg Tablet) 3 mg PO BEDTIME PRN PRN Reason: Insomnia Last Admin: 05/12/22 20:11 Dose: 3 mg Documented By: LINDA Nystatin (Nystatin Powder 15 Gm Bottle) 1 appl TOPICAL TID [facility]; Protocol Last Admin: 05/13/22 09:20 Dose: 1 appl Documented By: BAYRON Omeprazole (Omeprazole 20 Mg Capsule.Dr) 20 mg PO DAILY@0630 [facility] Last Admin: 05/13/22 05:14 Dose: 20 mg Documented By: LINDA Ondansetron HCl (Ondansetron Hcl 4 Mg/2 Ml Vial) 4 mg IVPUSH Q8H PRN PRN Reason: Nausea and Vomiting Last Admin: 04/24/22 20:42 Dose: 4 mg Documented By: CRISTOFER Oxycodone HCl (Oxycodone Hcl Immed Release 5 Mg Tablet) 5 mg PO Q4H PRN PRN Reason: Pain, Moderate (Pain Scale 4-6 Last Admin: 05/13/22 05:07 Dose: 5 mg Documented By: LINDA Pharmacy Consult (Consult Rx Perform Med Rec) 1 each MISCELLANE ONCE PRN PRN Reason: Consult order Potassium Chloride (Potassium Chloride Er 10 Meq Capsule.Er) 10 meq PO DAILY [facility] Last Admin: 05/13/22 09:06 Dose: 10 meq Documented By: BAYRON Prednisone (Prednisone 10 Mg Tablet) 10 mg PO DAILY [facility] Last Admin: 05/13/22 09:08 Dose: 10 mg Documented By: BAYRON Rivaroxaban (Rivaroxaban 15 Mg Tablet) 15 mg PO DAILY@1700 [facility] Last Admin: 05/12/22 17:36 Dose: 15 mg Documented By: FOGARTPily Sodium Chloride (0.9 % Sodium Chloride Flush 3 Ml Syringe) 3 ml IVFLUSH QSHIFT [facility] Last Admin: 05/13/22 09:08 Dose: 3 ml Documented By: BAYRON Tamsulosin HCl (Tamsulosin Hcl 0.4 Mg Capsule) 0.8 mg PO DAILY [facility] Last Admin: 05/13/22 09:07 Dose: 0.8 mg Documented By: BAYRON Trazodone HCl (Trazodone Hcl 25 Mg Halftab) 12.5 mg PO BID PRN PRN Reason: Pain, Mild (Pain Scale 1-3) Last Admin: 05/12/22 20:08 Dose: 12.5 mg Documented By: BRIGC Labs 04/30/22 05:39 05/11/22 06:13 Labs: Laboratory Results - last 24 hr 05/12/22 15:40 Urine Color Yellow Urine Appearance Cloudy Urine pH 7.5 Ur Specific [place] 1.010 Urine Protein Negative Urine Glucose (UA) Negative Urine Ketones Negative Urine Blood Moderate (2+) H Urine Nitrite Negative Ur Leukocyte Esterase Large (3+) H Urine RBC 6-10 H Urine WBC >50 H Ur Squamous Epith Cells 0-2 Urine Bacteria 4+ Hyaline Casts 3-5 Assessment and Plan (1) Dementia with behavioral disturbance: Status: Acute Plan 77yo M with hx chronic HFrEF, AF s/p PPM 2019 AC on rivaroxaban, CKD3, unspecified dementia, brought in after falling in the [place] while intoxicated and developing an open anal wound with fecal drainage admitted for perirectal perforation/cellulitis. He was transferred to intensive care unit overnight of 04/09 for acute hypoxia with pulmonary edema secondary to increased fluid overload,? AFib with RVR briefly requiring BiPAP support for respiratory effort and not for hypercapnia.? He was diuressed with good effect and ultimately taking off bid ? right elbow pain Likely due to olecranon bursitis , improving, cont. prednisone 10 mg daily 3/7,rest, seen by Ortho no intervention recommended. Generalized pain, bed ridden on oxycodone 5 mg q.4 hours as needed will change to oxycodone 5 mg t.i.d. with Tylenol. Avoid NSAIDs due to kidney injury. DAWIT on CKD3 Unchanged creatinine likely new baseline while being diuresed. Follow BMP closely will lower dose of bumex if noted to have a rise in creat. NSVT. Had an episode on May 09 noted to have 12 beats run of V-tach, asymptomatic Continue magnesium supplement, keep potassium 4, magnesium around 2, continue carvedilol 12.5 b.i.d, digoxin every other day. 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 coli UTI completed antibiotics. Noted to have concentrated urine with foul odor , urinalysis positive for bacteria, large leukocyte esterase and WBC, patient has history of ESBL positive E coli and Klebsiella , will follow urine culture and will discuss with ID prior to starting antibiotics. Acute respiratory failure with hypoxia due to heart failure resolved. acute on chronic systolic heart failure EF 15%, required IV diuresis in ICU now on p.o. daily Bumex 1mg Drowsiness resolved, will avoid sedative medications Perirectal perforation/cellulitis fecal drainage through open perianal wound Persists, cellulitis resolved. Continue perianal hygiene, wound care Urinary retention prn bladder scan, straight cath PRN, continue Flomax Permanent AFIB rate controlled, continue Eliquis, digoxin, continue Xarelto Agitation, hallucinations no recurrent episodes , on trazodone 12.5 mg by mouth b.i.d. as needed avoid sedative meds. DVT prophylaxis Rivaroxaban DNR/DNI need for inpatient: awaiting safe discharge plan Time Spent With Patient Time: Total time managing care of this patient today ____ minutes. Quality Stroke Does the patient have a stroke diagnosis?: No VTE Prior VTE?: No VTE Risk Level:: Medical - moderate - high VTE Device Contraindication: N/A - Device Ordered VTE Drug Contraindication: Treatment Not Indicated
[2022-05-13 11:25] VITALS: BP 119/84; PULSE 69; RESP 18; TEMP 36.6; O2SAT 97
[2022-05-13 14:57] VITALS: BP 124/73; PULSE 57; RESP 18; TEMP 36.6; O2SAT 93
[2022-05-13] MEDS: Acetaminophen 325 MG TABLET 650 MG PO ×2 (16:10→20:25)
[2022-05-13] MEDS: Rivaroxaban 15 MG TABLET PO (17:09)
[2022-05-13 20:00] VITALS: BP 127/81; PULSE 66; RESP 16; TEMP 36.5; O2SAT 92
[2022-05-14] MEDS: traZODone HCL 25 MG HALFTAB 12.5 MG PO (02:29)
[2022-05-14] MEDS: Melatonin 3 MG TABLET PO (02:36)
[2022-05-14] MEDS: Omeprazole 20 MG CAPSULE.DR PO (06:01)
[2022-05-14 06:44] LABS: Anion Gap 13 (12-20); Blood Urea Nitrogen 30 mg/dL (9-16); Calcium 9.3 mg/dL (8.4-10.2); Carbon Dioxide 29 mmol/L (22-29); Chloride 102 mmol/L (96-108); Creatinine Clr Calc Pharmacy 45.8; Estimated Glomerular Filt Rate 49; Glucose Random 127 mg/dL (60-115); Potassium 4.8 mmol/L (3.3-5.1); Sodium 139 mmol/L (135-145)
[2022-05-14 07:00] VITALS: BP 120/80; PULSE 83; RESP 18; TEMP 36.3; O2SAT 100
[2022-05-14] MEDS: Acetaminophen 325 MG TABLET 650 MG PO ×3 (09:02→21:17)
[2022-05-14] MEDS: Magnesium Oxide 400 MG TABLET PO ×2 (09:03→16:33)
[2022-05-14] MEDS: Folic Acid 1 MG TABLET PO (09:03)
[2022-05-14] MEDS: predniSONE 10 MG TABLET PO (09:04)
[2022-05-14] MEDS: Nystatin Powder 15 GM BOTTLE 1 APPL TOPICAL ×3 (09:04→21:28)
[2022-05-14] MEDS: Tamsulosin HCL 0.4 MG CAPSULE 0.8 MG PO (09:04)
[2022-05-14] MEDS: Bumetanide 1 MG TABLET PO (09:04)
[2022-05-14] MEDS: carvediloL 12.5 MG TABLET PO ×2 (09:04→21:20)
[2022-05-14] MEDS: oxyCODONE HCl Immed Release 5 MG TABLET PO ×3 (09:04→21:20)
[2022-05-14] MEDS: Digoxin 0.125 MG TABLET PO (09:06)
--- NOTE | 2022-05-14 10:04 | HO.PM.IMPN ---
Subjective Subjective Date of Service: 05/14/22 Interval History: Voices no complaints this a.m. Review of Systems Denies chest pain Denies shortness of breath Denies nausea vomiting diarrhea Physical Exam Vital Signs: Vital Signs: Last Vital Signs Temp 97.3 F 05/14/22 07:00 Pulse 83 05/14/22 07:00 Resp 18 05/14/22 07:00 BP 120/80 05/14/22 07:00 Pulse Ox 100 05/14/22 07:00 O2 Del Method 05/14/22 07:00 O2 Flow Rate 2 05/09/22 11:06 FiO2 30 04/10/22 07:00 Oxygen Flow Rate 30 04/10/22 05:25 BMI result Body Mass Index 26.4 Const: Other: Awake alert oriented to person place Resp: Other: Clear to auscultation bilaterally no rales rhonchi or wheezes Cardio: Other: No S4; positive S1-S2; no S3 murmurs rubs or gallops GI: Other: Soft nontender nondistended normoactive bowel sounds Extrem: Other: No edema bilaterally Objective Data Active Medications Acetaminophen (Acetaminophen 325 Mg Tablet) 650 mg PO TID [facility] Last Admin: 05/14/22 09:02 Dose: 650 mg Documented By: CODIE Benzonatate (Benzonatate 100 Mg Capsule) 100 mg PO TID PRN PRN Reason: Cough Last Admin: 02/22/22 16:03 Dose: 100 mg Documented By: BOGDAN Bumetanide (Bumetanide 1 Mg Tablet) 1 mg PO DAILY [facility]; Protocol Last Admin: 05/14/22 09:04 Dose: 1 mg Documented By: CODIE Carvedilol (Carvedilol 12.5 Mg Tablet) 12.5 mg PO BID [facility]; Protocol Last Admin: 05/14/22 09:04 Dose: 12.5 mg Documented By: CODIE Digoxin (Digoxin 0.125 Mg Tablet) 0.125 mg PO Q2D [facility] Last Admin: 05/14/22 09:06 Dose: 0.125 mg Documented By: CODIE Docusate Sodium (Docusate Sodium 100 Mg Capsule) 100 mg PO BEDTIME PRN PRN Reason: Constipation Folic Acid (Folic Acid 1 Mg Tablet) 1 mg PO DAILY [facility] Last Admin: 05/14/22 09:03 Dose: 1 mg Documented By: CODIE Magnesium Oxide (Magnesium Oxide 400 Mg Tablet) 400 mg PO BIDWM [facility] Last Admin: 05/14/22 09:03 Dose: 400 mg Documented By: CODIE Melatonin (Melatonin 3 Mg Tablet) 3 mg PO BEDTIME PRN PRN Reason: Insomnia Last Admin: 05/14/22 02:36 Dose: 3 mg Documented By: MICHAEL Nystatin (Nystatin Powder 15 Gm Bottle) 1 appl TOPICAL TID [facility]; Protocol Last Admin: 05/14/22 09:04 Dose: 1 appl Documented By: CODIE Omeprazole (Omeprazole 20 Mg Capsule.Dr) 20 mg PO DAILY@0630 [facility] Last Admin: 05/14/22 06:01 Dose: 20 mg Documented By: MICHAEL Ondansetron HCl (Ondansetron Hcl 4 Mg/2 Ml Vial) 4 mg IVPUSH Q8H PRN PRN Reason: Nausea and Vomiting Last Admin: 04/24/22 20:42 Dose: 4 mg Documented By: CRISTOFER Oxycodone HCl (Oxycodone Hcl Immed Release 5 Mg Tablet) 5 mg PO TID [facility] Last Admin: 05/14/22 09:04 Dose: 5 mg Documented By: CODIE Pharmacy Consult (Consult Rx Perform Med Rec) 1 each MISCELLANE ONCE PRN PRN Reason: Consult order Potassium Chloride (Potassium Chloride Er 10 Meq Capsule.Er) 10 meq PO DAILY [facility] Last Admin: 05/14/22 09:03 Dose: 10 meq Documented By: CODIE Prednisone (Prednisone 10 Mg Tablet) 10 mg PO DAILY [facility] Stop: 05/17/22 09:01 Last Admin: 05/14/22 09:04 Dose: 10 mg Documented By: CODIE Rivaroxaban (Rivaroxaban 15 Mg Tablet) 15 mg PO DAILY@1700 [facility] Last Admin: 05/13/22 17:09 Dose: 15 mg Documented By: BAYRON Sodium Chloride (0.9 % Sodium Chloride Flush 3 Ml Syringe) 3 ml IVFLUSH QSHIFT [facility] Last Admin: 05/14/22 09:02 Dose: Not Given Documented By: CODIE Non-Admin Reason: No Access Tamsulosin HCl (Tamsulosin Hcl 0.4 Mg Capsule) 0.8 mg PO DAILY [facility] Last Admin: 05/14/22 09:04 Dose: 0.8 mg Documented By: CODIE Trazodone HCl (Trazodone Hcl 25 Mg Halftab) 12.5 mg PO BID PRN PRN Reason: Pain, Mild (Pain Scale 1-3) Last Admin: 05/14/22 02:29 Dose: 12.5 mg Documented By: JMAIERISM Labs 04/30/22 05:39 05/14/22 05:39 Labs: Laboratory Results - last 24 hr 05/14/22 05:39 Anion Gap 13 Estim Creat Clear Calc 45.8 Estimated GFR 49 Random Glucose 127 H Calcium 9.3 Microbiology Microbiology Results: Microbiology 05/12/22 16:04 Urine Culture - Final Urine clean catch - Urine bowers top Escherichia coli Assessment and Plan (1) Dementia with behavioral disturbance: Status: Acute (2) DAWIT (acute kidney injury): Status: Acute (3) Infection due to ESBL-producing Escherichia coli: Status: Acute Plan 77yo M with hx chronic HFrEF, AF s/p PPM 2019 AC on rivaroxaban, CKD3, unspecified dementia, brought in after falling [place] the [place] while intoxicated and developing an open anal wound with fecal drainage admitted for perirectal perforation/cellulitis. He was transferred to intensive care unit overnight of 04/09 for acute hypoxia with pulmonary edema secondary to increased fluid overload,? AFib with RVR briefly requiring BiPAP support for respiratory effort and not for hypercapnia.? He was diuressed with good effect and ultimately taking off bid ? 1.Right elbow pain/olecranon bursitis - improving, cont. prednisone 10 mg daily 07/28 2.DAWIT on CKD3 -at baseline -periodic BMPs while on diuretic 3.Resistant E. coli UTI -urine culture 05/12/2022 resistant E coli -will discuss with ID prior to initiating antibiotic therapies 4.Acute on chronic systolic heart failure -well compensated -daily Bumex 1mg 5.Perirectal perforation/cellulitis -fecal drainage through open perianal wound Persists, cellulitis resolved. - perianal hygiene, wound care 6.Permanent AFIB -acceptable rate controlled - continue Eliquis, digoxin, continue Xarelto DVT prophylaxis Rivaroxaban DNR/DNI need for inpatient: awaiting safe discharge plan Time Spent With Patient Time: Total time managing care of this patient today ____ minutes. Quality Stroke Does the patient have a stroke diagnosis?: No VTE Prior VTE?: No VTE Risk Level:: Medical - moderate - high VTE Device Contraindication: N/A - Device Ordered VTE Drug Contraindication: Treatment Not Indicated
[2022-05-14 11:14] VITALS: RESP 18; TEMP 36.8; O2SAT 98
[2022-05-14 15:16] VITALS: BP 124/78; PULSE 63; RESP 18; TEMP 36.6; O2SAT 96
[2022-05-14] MEDS: Rivaroxaban 15 MG TABLET PO (16:32)
[2022-05-14 19:30] VITALS: BP 122/91; PULSE 88; RESP 18; TEMP 37.2; O2SAT 98
[2022-05-14 23:16] VITALS: BP 138/94; PULSE 70; RESP 18; TEMP 37.1; O2SAT 94
--- NOTE | 2022-05-15 03:00 | PC.NURSE ---
Assumed care at 2300, pt was asleep on bed when first seen, awaken when spoken to, denies any pain, needs met, call hussein in reach.
[2022-05-15 04:00] VITALS: BP 138/64; PULSE 76; RESP 20; TEMP 37.1; O2SAT 97
[2022-05-15] MEDS: Omeprazole 20 MG CAPSULE.DR PO (05:41)
[2022-05-15] MEDS: carvediloL 12.5 MG TABLET PO ×2 (07:23→21:30)
[2022-05-15] MEDS: Folic Acid 1 MG TABLET PO (07:23)
[2022-05-15] MEDS: predniSONE 10 MG TABLET PO (07:23)
[2022-05-15] MEDS: Magnesium Oxide 400 MG TABLET PO ×2 (07:23→16:28)
[2022-05-15] MEDS: Bumetanide 1 MG TABLET PO (07:23)
[2022-05-15] MEDS: oxyCODONE HCl Immed Release 5 MG TABLET PO ×3 (07:23→21:30)
[2022-05-15] MEDS: Tamsulosin HCL 0.4 MG CAPSULE 0.8 MG PO (07:23)
[2022-05-15] MEDS: Acetaminophen 325 MG TABLET 650 MG PO ×3 (07:24→21:29)
[2022-05-15] MEDS: Nystatin Powder 15 GM BOTTLE 1 APPL TOPICAL ×3 (07:24→21:30)
[2022-05-15 07:25] VITALS: BP 119/96; PULSE 69; RESP 20; TEMP 36.2; O2SAT 96
[2022-05-15 08:10] LABS: MANUAL DIFF FLAG NO
[2022-05-15 08:14] LABS: Basophils Percent Auto 0.3 % (0-2); Eosinophils Absolute Auto 0.1 X10*3/uL (0.0-0.4); Eosinophils Percent Auto 1.9 % (0-4); Hematocrit 34.9 % (42.0-52.0); Hemoglobin 10.8 g/dl (14.0-18.0); Imm Gran Abs Auto 0.03 X10*3/uL (0.00-0.03); Imm Gran Pct Auto 0.4 % (0.0-0.4); Lymphocytes Absolute Auto 2.3 X10*3/uL (1.2-4.9); Lymphocytes Percent Auto 32.3 % (20-40); Mean Corpuscular HGB Conc 30.9 g/dl (31.0-36.0); Mean Corpuscular Hemoglobin 28.2 pg (27.0-33.0); Mean Corpuscular Volume 91.1 fL (80.0-98.0); Mean Platelet Volume 10.4 fL (9.4-12.4); Monocytes Absolute Auto 0.9 X10*3/uL (0.1-1.2); Monocytes Percent Auto 12.1 % (2-11); Neutrophils Absolute Auto 3.7 x10*3/uL (2.0-8.3); Platelet Count 222 X10*3/uL (160-400); Red Blood Count 3.83 X10*6/uL (4.60-5.80); Red Cell Distribution Width 15.3 % (11.0-16.0)
--- NOTE | 2022-05-15 09:29 | MHC.CM.PN ---
Broad SNF search referrals have been updated and CM will continue to follow.
[2022-05-15 12:00] VITALS: BP 142/99; PULSE 77; RESP 20; TEMP 36.8; O2SAT 97
--- NOTE | 2022-05-15 12:40 | P.PNIM_ITS ---
Subjective Subjective Date of Service: 05/15/22 Interval History: No acute issues overall Review of Systems Denies chest pain Denies shortness of breath Denies nausea vomiting diarrhea Denies fever chills Physical Exam Vital Signs: Vital Signs: Last Vital Signs Temp 98.2 F 05/15/22 12:00 Pulse 77 05/15/22 12:00 Resp 20 05/15/22 12:00 BP 142/99 H 05/15/22 12:00 Pulse Ox 97 05/15/22 12:00 O2 Del Method 05/15/22 12:00 O2 Flow Rate 2 05/09/22 11:06 FiO2 30 04/10/22 07:00 Oxygen Flow Rate 30 04/10/22 05:25 BMI result Body Mass Index 26.4 Const: Other: No acute issues Resp: Other: Clear to auscultation bilaterally no rales rhonchi or wheezes Cardio: Other: No S4; positive S1-S2; no S3 murmurs rubs or gallops GI: Other: Soft nontender nondistended normoactive bowel sounds Extrem: Other: No edema bilaterally Objective Data Active Medications Acetaminophen (Acetaminophen 325 Mg Tablet) 650 mg PO TID [facility] Last Admin: 05/15/22 07:24 Dose: 650 mg Documented By: BETY Benzonatate (Benzonatate 100 Mg Capsule) 100 mg PO TID PRN PRN Reason: Cough Last Admin: 02/22/22 16:03 Dose: 100 mg Documented By: BOGDAN Bumetanide (Bumetanide 1 Mg Tablet) 1 mg PO DAILY [facility]; Protocol Last Admin: 05/15/22 07:23 Dose: 1 mg Documented By: BETY Carvedilol (Carvedilol 12.5 Mg Tablet) 12.5 mg PO BID [facility]; Protocol Last Admin: 05/15/22 07:23 Dose: 12.5 mg Documented By: BETY Digoxin (Digoxin 0.125 Mg Tablet) 0.125 mg PO Q2D [facility] Last Admin: 05/14/22 09:06 Dose: 0.125 mg Documented By: CODIE Docusate Sodium (Docusate Sodium 100 Mg Capsule) 100 mg PO BEDTIME PRN PRN Reason: Constipation Folic Acid (Folic Acid 1 Mg Tablet) 1 mg PO DAILY [facility] Last Admin: 05/15/22 07:23 Dose: 1 mg Documented By: BETY Magnesium Oxide (Magnesium Oxide 400 Mg Tablet) 400 mg PO BIDWM [facility] Last Admin: 05/15/22 07:23 Dose: 400 mg Documented By: BETY Melatonin (Melatonin 3 Mg Tablet) 3 mg PO BEDTIME PRN PRN Reason: Insomnia Last Admin: 05/14/22 02:36 Dose: 3 mg Documented By: ODRISPascual Nystatin (Nystatin Powder 15 Gm Bottle) 1 appl TOPICAL TID [facility]; Protocol Last Admin: 05/15/22 07:24 Dose: 1 appl Documented By: BETY Omeprazole (Omeprazole 20 Mg Capsule.Dr) 20 mg PO DAILY@0630 [facility] Last Admin: 05/15/22 05:41 Dose: 20 mg Documented By: MAYRA Ondansetron HCl (Ondansetron Hcl 4 Mg/2 Ml Vial) 4 mg IVPUSH Q8H PRN PRN Reason: Nausea and Vomiting Last Admin: 04/24/22 20:42 Dose: 4 mg Documented By: CRISTOFER Oxycodone HCl (Oxycodone Hcl Immed Release 5 Mg Tablet) 5 mg PO TID [facility] Last Admin: 05/15/22 07:23 Dose: 5 mg Documented By: BETY Pharmacy Consult (Consult Rx Perform Med Rec) 1 each MISCELLANE ONCE PRN PRN Reason: Consult order Potassium Chloride (Potassium Chloride Er 10 Meq Capsule.Er) 10 meq PO DAILY [facility] Last Admin: 05/15/22 07:23 Dose: 10 meq Documented By: BETY Prednisone (Prednisone 10 Mg Tablet) 10 mg PO DAILY [facility] Stop: 05/17/22 09:01 Last Admin: 05/15/22 07:23 Dose: 10 mg Documented By: BETY Rivaroxaban (Rivaroxaban 15 Mg Tablet) 15 mg PO DAILY@1700 [facility] Last Admin: 05/14/22 16:32 Dose: 15 mg Documented By: CODIE Sodium Chloride (0.9 % Sodium Chloride Flush 3 Ml Syringe) 3 ml IVFLUSH QSHIFT [facility] Last Admin: 05/15/22 07:24 Dose: 3 ml Documented By: BETY Tamsulosin HCl (Tamsulosin Hcl 0.4 Mg Capsule) 0.8 mg PO DAILY [facility] Last Admin: 05/15/22 07:23 Dose: 0.8 mg Documented By: BETY Trazodone HCl (Trazodone Hcl 25 Mg Halftab) 12.5 mg PO BID PRN PRN Reason: Pain, Mild (Pain Scale 1-3) Last Admin: 05/14/22 02:29 Dose: 12.5 mg Documented By: MICHAEL Labs 05/15/22 07:56 05/14/22 05:39 Labs: Laboratory Results - last 24 hr 05/15/22 07:56 MCV 91.1 MCH 28.2 MCHC 30.9 L RDW 15.3 Plt Count 222 MPV 10.4 Immature Gran % (Auto) 0.4 Neut % (Auto) 53.0 Lymph % (Auto) 32.3 Falls % (Auto) 12.1 H Eos % (Auto) 1.9 Baso % (Auto) 0.3 Lymph # (Auto) 2.3 Falls # (Auto) 0.9 Eos # (Auto) 0.1 Baso # (Auto) 0.0 Abs Immat Gran (auto) 0.03 Absolute Neuts (auto) 3.7 Absolute Nucleated RBC 0.000 Nucleated RBC % (auto) 0.0 Microbiology Microbiology Results: Microbiology 05/12/22 16:04 Urine Culture - Final Urine clean catch - Urine bowers top Escherichia coli Assessment and Plan (1) Olecranon bursitis of right elbow: Status: Acute Plan 77yo M with hx chronic HFrEF, AF s/p PPM 2019 AC on rivaroxaban, CKD3, unspecified dementia, brought in after falling in the [place] while intoxicated and developing an open anal wound with fecal drainage admitted for perirectal perforation/cellulitis. He was transferred to intensive care unit overnight of 04/09 for acute hypoxia with pulmonary edema secondary to increased fluid overload,? AFib with RVR briefly requiring BiPAP support for respiratory effort and not for hypercapnia.? He was diuressed with good effect and ultimately taking off bid ? 1.Right elbow pain/olecranon bursitis - improving, cont. prednisone 10 mg daily 08/27 2.DAWIT on CKD3 -at baseline -periodic BMPs while on diuretic 3.Resistant E. coli UTI -urine culture 05/12/2022 resistant E coli -will discuss with ID prior to initiating antibiotic therapies 4.Acute on chronic systolic heart failure -well compensated -daily Bumex 1mg 5.Perirectal perforation/cellulitis -fecal drainage through open perianal wound Persists, cellulitis resolved. - perianal hygiene, wound care 6.Permanent AFIB -acceptable rate controlled - continue Eliquis, digoxin, continue Xarelto DVT prophylaxis Rivaroxaban DNR/DNI need for inpatient: awaiting safe discharge plan Time Spent With Patient Time: Total time managing care of this patient today ____ minutes. Quality Stroke Does the patient have a stroke diagnosis?: No VTE Prior VTE?: No VTE Risk Level:: Medical - moderate - high VTE Device Contraindication: N/A - Device Ordered VTE Drug Contraindication: Treatment Not Indicated
[2022-05-15 15:37] VITALS: BP 136/94; PULSE 76; RESP 18; TEMP 37.1; O2SAT 98
[2022-05-15] MEDS: Rivaroxaban 15 MG TABLET PO (16:28)
[2022-05-15 19:37] VITALS: BP 130/89; PULSE 61; RESP 18; TEMP 37.1; O2SAT 98
[2022-05-15 23:43] VITALS: BP 143/68; PULSE 66; RESP 18; TEMP 37.1; O2SAT 98
[2022-05-16 04:32] VITALS: BP 140/72; PULSE 77; RESP 20; TEMP 37; O2SAT 96
[2022-05-16 07:47] VITALS: BP 119/89; PULSE 87; RESP 16; TEMP 36.2; O2SAT 93
[2022-05-16] MEDS: carvediloL 12.5 MG TABLET PO ×2 (08:58→21:16)
[2022-05-16] MEDS: Bumetanide 1 MG TABLET PO (08:58)
[2022-05-16] MEDS: Folic Acid 1 MG TABLET PO (08:58)
[2022-05-16] MEDS: Tamsulosin HCL 0.4 MG CAPSULE 0.8 MG PO (08:58)
[2022-05-16] MEDS: predniSONE 10 MG TABLET PO (08:59)
[2022-05-16] MEDS: Magnesium Oxide 400 MG TABLET PO ×2 (08:59→15:58)
[2022-05-16] MEDS: oxyCODONE HCl Immed Release 5 MG TABLET PO ×3 (08:59→21:16)
[2022-05-16] MEDS: Acetaminophen 325 MG TABLET 650 MG PO ×3 (09:00→21:15)
[2022-05-16] MEDS: Nystatin Powder 15 GM BOTTLE 1 APPL TOPICAL ×3 (09:01→21:16)
[2022-05-16] MEDS: Digoxin 0.125 MG TABLET PO (09:03)
[2022-05-16 11:02] VITALS: BP 122/91; PULSE 77; RESP 16; TEMP 36.1
--- NOTE | 2022-05-16 11:06 | P.PNIM_ITS ---
Subjective Subjective Date of Service: 05/16/22 Interval History: No acute issues overall Review of Systems Denies chest pain Denies shortness of breath Denies nausea vomiting diarrhea Denies fever chills Physical Exam Vital Signs: Vital Signs: Last Vital Signs Temp 97.1 F 05/16/22 07:47 Pulse 87 05/16/22 07:47 Resp 16 05/16/22 07:47 BP 119/89 05/16/22 07:47 Pulse Ox 93 05/16/22 07:47 O2 Del Method 05/16/22 07:47 O2 Flow Rate 2 05/09/22 11:06 FiO2 30 04/10/22 07:00 Oxygen Flow Rate 30 04/10/22 05:25 BMI result Body Mass Index 26.4 Const: Other: No acute issues Resp: Other: Clear to auscultation bilaterally no rales rhonchi or wheezes Cardio: Other: No S4; positive S1-S2; no S3 murmurs rubs or gallops GI: Other: Soft nontender nondistended normoactive bowel sounds Extrem: Other: No edema bilaterally Objective Data Active Medications Acetaminophen (Acetaminophen 325 Mg Tablet) 650 mg PO TID [facility] Last Admin: 05/16/22 09:00 Dose: 650 mg Documented By: CODIE Benzonatate (Benzonatate 100 Mg Capsule) 100 mg PO TID PRN PRN Reason: Cough Last Admin: 02/22/22 16:03 Dose: 100 mg Documented By: BOGDAN Bumetanide (Bumetanide 1 Mg Tablet) 1 mg PO DAILY [facility]; Protocol Last Admin: 05/16/22 08:58 Dose: 1 mg Documented By: CODIE Carvedilol (Carvedilol 12.5 Mg Tablet) 12.5 mg PO BID [facility]; Protocol Last Admin: 05/16/22 08:58 Dose: 12.5 mg Documented By: CODIE Digoxin (Digoxin 0.125 Mg Tablet) 0.125 mg PO Q2D [facility] Last Admin: 05/16/22 09:03 Dose: 0.125 mg Documented By: CODIE Docusate Sodium (Docusate Sodium 100 Mg Capsule) 100 mg PO BEDTIME PRN PRN Reason: Constipation Folic Acid (Folic Acid 1 Mg Tablet) 1 mg PO DAILY [facility] Last Admin: 05/16/22 08:58 Dose: 1 mg Documented By: CODIE Magnesium Oxide (Magnesium Oxide 400 Mg Tablet) 400 mg PO BIDWM [facility] Last Admin: 05/16/22 08:59 Dose: 400 mg Documented By: CODIE Melatonin (Melatonin 3 Mg Tablet) 3 mg PO BEDTIME PRN PRN Reason: Insomnia Last Admin: 05/14/22 02:36 Dose: 3 mg Documented By: JAMIERISPascual Nystatin (Nystatin Powder 15 Gm Bottle) 1 appl TOPICAL TID [facility]; Protocol Last Admin: 05/16/22 09:01 Dose: 1 appl Documented By: CODIE Omeprazole (Omeprazole 20 Mg Capsule.Dr) 20 mg PO DAILY@0630 [facility] Last Admin: 05/16/22 05:32 Dose: Not Given Documented By: KIMBERLY Non-Admin Reason: Patient Refused Ondansetron HCl (Ondansetron Hcl 4 Mg/2 Ml Vial) 4 mg IVPUSH Q8H PRN PRN Reason: Nausea and Vomiting Last Admin: 04/24/22 20:42 Dose: 4 mg Documented By: CRISTOFER Oxycodone HCl (Oxycodone Hcl Immed Release 5 Mg Tablet) 5 mg PO TID [facility] Last Admin: 05/16/22 08:59 Dose: 5 mg Documented By: CODIE Pharmacy Consult (Consult Rx Perform Med Rec) 1 each MISCELLANE ONCE PRN PRN Reason: Consult order Potassium Chloride (Potassium Chloride Er 10 Meq Capsule.Er) 10 meq PO DAILY [facility] Last Admin: 05/16/22 08:58 Dose: 10 meq Documented By: CDOIE Prednisone (Prednisone 10 Mg Tablet) 10 mg PO DAILY [facility] Stop: 05/17/22 09:01 Last Admin: 05/16/22 08:59 Dose: 10 mg Documented By: CODIE Rivaroxaban (Rivaroxaban 15 Mg Tablet) 15 mg PO DAILY@1700 [facility] Last Admin: 05/15/22 16:28 Dose: 15 mg Documented By: BETY Sodium Chloride (0.9 % Sodium Chloride Flush 3 Ml Syringe) 3 ml IVFLUSH QSHIFT [facility] Last Admin: 05/16/22 09:01 Dose: Not Given Documented By: CODIE Non-Admin Reason: No Access Tamsulosin HCl (Tamsulosin Hcl 0.4 Mg Capsule) 0.8 mg PO DAILY [facility] Last Admin: 05/16/22 08:58 Dose: 0.8 mg Documented By: CODIE Trazodone HCl (Trazodone Hcl 25 Mg Halftab) 12.5 mg PO BID PRN PRN Reason: Pain, Mild (Pain Scale 1-3) Last Admin: 05/14/22 02:29 Dose: 12.5 mg Documented By: MICHAEL Labs 05/15/22 07:56 05/14/22 05:39 Assessment and Plan (1) Olecranon bursitis of right elbow: Status: Acute (2) Infection due to ESBL-producing Escherichia coli: Status: Acute Plan 77yo M with hx chronic HFrEF, AF s/p PPM 2019 AC on rivaroxaban, CKD3, unspecified dementia, brought in after falling [place] the [place] while intoxicated and developing an open anal wound with fecal drainage admitted for perirectal perforation/cellulitis. He was transferred to intensive care unit overnight of 04/09 for acute hypoxia with pulmonary edema secondary to increased fluid overload,? AFib with RVR briefly requiring BiPAP support for respiratory effort and not for hypercapnia.? He was diuressed with good effect and ultimately taking off bid ? 1.Right elbow pain/olecranon bursitis - improving, cont. prednisone 10 mg daily 09/27 2.DAWIT on CKD3 -at baseline -periodic BMPs while on diuretic 3.Resistant E. coli UTI -urine culture 05/12/2022 resistant E coli -does not examined toxic; no white count -hold on antibiotics this time likely colonization 4.Acute on chronic systolic heart failure -well compensated -daily Bumex 1mg 5.Perirectal perforation/cellulitis -fecal drainage through open perianal wound Persists, cellulitis resolved. - perianal hygiene, wound care 6.Permanent AFIB -acceptable rate controlled - continue Eliquis, digoxin, continue Xarelto DVT prophylaxis Rivaroxaban DNR/DNI need for inpatient: awaiting safe discharge plan Time Spent With Patient Time: Total time managing care of this patient today ____ minutes. Quality Stroke Does the patient have a stroke diagnosis?: No VTE Prior VTE?: No VTE Risk Level:: Medical - moderate - high VTE Device Contraindication: N/A - Device Ordered VTE Drug Contraindication: Treatment Not Indicated
--- NOTE | 2022-05-16 12:57 | MHC.CM.PN ---
[facility] called re getting results of [place] faxed 05/09 will call back 05/17
[2022-05-16 15:15] VITALS: BP 108/87; PULSE 75; RESP 19; TEMP 37.1; O2SAT 97
[2022-05-16] MEDS: Rivaroxaban 15 MG TABLET PO (15:58)
[2022-05-16 19:39] VITALS: BP 123/93; PULSE 65; RESP 18; TEMP 37; O2SAT 92
[2022-05-17] VITALS (7 sets, daily range): BP systolic 126–141; BP diastolic 76–98; PULSE 62–68; RESP 12–18; TEMP 35.9–37.1; O2SAT 94–98
[2022-05-17] MEDS: Tamsulosin HCL 0.4 MG CAPSULE 0.8 MG PO (07:48)
[2022-05-17] MEDS: oxyCODONE HCl Immed Release 5 MG TABLET PO ×3 (07:48→20:49)
[2022-05-17] MEDS: Acetaminophen 325 MG TABLET 650 MG PO ×3 (07:51→20:49)
[2022-05-17] MEDS: Magnesium Oxide 400 MG TABLET PO ×2 (07:52→16:22)
[2022-05-17] MEDS: Folic Acid 1 MG TABLET PO (07:52)
[2022-05-17] MEDS: Bumetanide 1 MG TABLET PO (07:52)
[2022-05-17] MEDS: predniSONE 10 MG TABLET PO (07:52)
[2022-05-17] MEDS: Nystatin Powder 15 GM BOTTLE 1 APPL TOPICAL ×3 (07:53→20:54)
[2022-05-17] MEDS: carvediloL 12.5 MG TABLET PO ×2 (07:53→20:49)
[2022-05-17 09:33] LABS: Anion Gap 16 (12-20); Blood Urea Nitrogen 36 mg/dL (9-16); Calcium 9.3 mg/dL (8.4-10.2); Carbon Dioxide 28 mmol/L (22-29); Chloride 99 mmol/L (96-108); Creatinine Clr Calc Pharmacy 41.1; Estimated Glomerular Filt Rate 43; Glucose Random 111 mg/dL (60-115); Magnesium 2.1 mg/dL (1.6-2.6); Potassium 4.7 mmol/L (3.3-5.1); Sodium 138 mmol/L (135-145)
--- NOTE | 2022-05-17 12:40 | MHC.CM.PN ---
Addendum entered by Brooklyn Garber 05/17/22 12:44: another message left for edu in admissions at [facility] to check pts mstaus re admisisons Original Note: per rounds pt ready for dc unable to locate bed
--- NOTE | 2022-05-17 13:43 | MHC.CM.PN ---
[facility] has no beds avaliable spoke with edu
--- NOTE | 2022-05-17 15:15 | P.PNIM_ITS ---
Subjective Subjective Date of Service: 05/17/22 Interval History: No acute issues overall Review of Systems Denies chest pain Denies shortness of breath Denies nausea vomiting diarrhea Denies fever chills Physical Exam Vital Signs: Vital Signs: Last Vital Signs Temp 96.7 F L 05/17/22 11:30 Pulse 67 05/17/22 11:30 Resp 12 05/17/22 11:30 BP 141/93 H 05/17/22 11:30 Pulse Ox 94 05/17/22 11:30 O2 Del Method 05/17/22 11:30 O2 Flow Rate 2 05/09/22 11:06 FiO2 30 04/10/22 07:00 Oxygen Flow Rate 30 04/10/22 05:25 BMI result Body Mass Index 26.4 Const: Other: No acute issues Resp: Other: Clear to auscultation bilaterally no rales rhonchi or wheezes Cardio: Other: No S4; positive S1-S2; no S3 murmurs rubs or gallops GI: Other: Soft nontender nondistended normoactive bowel sounds Extrem: Other: No edema bilaterally Objective Data Active Medications Acetaminophen (Acetaminophen 325 Mg Tablet) 650 mg PO TID [facility] Last Admin: 05/17/22 14:02 Dose: 650 mg Documented By: DANICA Benzonatate (Benzonatate 100 Mg Capsule) 100 mg PO TID PRN PRN Reason: Cough Last Admin: 02/22/22 16:03 Dose: 100 mg Documented By: BOGDAN Bumetanide (Bumetanide 1 Mg Tablet) 1 mg PO DAILY [facility]; Protocol Last Admin: 05/17/22 07:52 Dose: 1 mg Documented By: CODIE Carvedilol (Carvedilol 12.5 Mg Tablet) 12.5 mg PO BID [facility]; Protocol Last Admin: 05/17/22 07:53 Dose: 12.5 mg Documented By: CODIE Digoxin (Digoxin 0.125 Mg Tablet) 0.125 mg PO Q2D [facility] Last Admin: 05/16/22 09:03 Dose: 0.125 mg Documented By: CODIE Docusate Sodium (Docusate Sodium 100 Mg Capsule) 100 mg PO BEDTIME PRN PRN Reason: Constipation Folic Acid (Folic Acid 1 Mg Tablet) 1 mg PO DAILY [facility] Last Admin: 05/17/22 07:52 Dose: 1 mg Documented By: CODIE Magnesium Oxide (Magnesium Oxide 400 Mg Tablet) 400 mg PO BIDWM [facility] Last Admin: 05/17/22 07:52 Dose: 400 mg Documented By: CODIE Melatonin (Melatonin 3 Mg Tablet) 3 mg PO BEDTIME PRN PRN Reason: Insomnia Last Admin: 05/14/22 02:36 Dose: 3 mg Documented By: JAMIERISPascual Nystatin (Nystatin Powder 15 Gm Bottle) 1 appl TOPICAL TID [facility]; Protocol Last Admin: 05/17/22 14:02 Dose: 1 appl Documented By: DANICA Omeprazole (Omeprazole 20 Mg Capsule.Dr) 20 mg PO DAILY@0630 [facility] Last Admin: 05/17/22 05:52 Dose: Not Given Documented By: KIMBERLY Non-Admin Reason: Patient Refused Ondansetron HCl (Ondansetron Hcl 4 Mg/2 Ml Vial) 4 mg IVPUSH Q8H PRN PRN Reason: Nausea and Vomiting Last Admin: 04/24/22 20:42 Dose: 4 mg Documented By: CRISTOFER Oxycodone HCl (Oxycodone Hcl Immed Release 5 Mg Tablet) 5 mg PO TID [facility] Last Admin: 05/17/22 14:02 Dose: 5 mg Documented By: DANICA Pharmacy Consult (Consult Rx Perform Med Rec) 1 each MISCELLANE ONCE PRN PRN Reason: Consult order Potassium Chloride (Potassium Chloride Er 10 Meq Capsule.Er) 10 meq PO DAILY [facility] Last Admin: 05/17/22 07:53 Dose: 10 meq Documented By: CODIE Rivaroxaban (Rivaroxaban 15 Mg Tablet) 15 mg PO DAILY@1700 [facility] Last Admin: 05/16/22 15:58 Dose: 15 mg Documented By: CODIE Sodium Chloride (0.9 % Sodium Chloride Flush 3 Ml Syringe) 3 ml IVFLUSH QSHIFT [facility] Last Admin: 05/17/22 07:53 Dose: Not Given Documented By: CODIE Non-Admin Reason: No Access Tamsulosin HCl (Tamsulosin Hcl 0.4 Mg Capsule) 0.8 mg PO DAILY [facility] Last Admin: 05/17/22 07:48 Dose: 0.8 mg Documented By: CODIE Trazodone HCl (Trazodone Hcl 25 Mg Halftab) 12.5 mg PO BID PRN PRN Reason: Pain, Mild (Pain Scale 1-3) Last Admin: 05/14/22 02:29 Dose: 12.5 mg Documented By: MICHAEL Labs 05/15/22 07:56 05/17/22 08:53 Labs: Laboratory Results - last 24 hr 05/17/22 08:53 Anion Gap 16 Estim Creat Clear Calc 41.1 Estimated GFR 43 Random Glucose 111 Calcium 9.3 Magnesium 2.1 Assessment and Plan (1) Olecranon bursitis of right elbow: Status: Acute (2) DAWIT (acute kidney injury): Status: Acute Plan 77yo M with hx chronic HFrEF, AF s/p PPM 2019 AC on rivaroxaban, CKD3, un specified dementia, brought in after falling in the [place] while intoxicated and developing an open anal wound with fecal drainage admitted for perirectal perforation/cellulitis. He was transferred to intensive care unit overnight of 04/09 for acute hypoxia with pulmonary edema secondary to increased fluid overload,? AFib with RVR briefly requiring BiPAP support for respiratory effort and not for hypercapnia.? He was diuressed with good effect and ultimately taking off bid ? 1.Right elbow pain/olecranon bursitis - improving, cont. prednisone 10 mg daily 10/27..will dc 2.DAWIT on CKD3 -at baseline -periodic BMPs while on diuretic 3.Resistant E. coli UTI -urine culture 05/12/2022 resistant E coli -does not examined toxic; no white count -discussed with ID; no indication to treat. .. Likely colonization 4.Acute on chronic systolic heart failure -well compensated -daily Bumex 1mg 5.Perirectal perforation/cellulitis -fecal drainage through open perianal wound Persists, cellulitis resolved. - perianal hygiene, wound care 6.Permanent AFIB -acceptable rate controlled - continue Eliquis, digoxin, continue Xarelto DVT prophylaxis Rivaroxaban DNR/DNI need for inpatient: awaiting safe discharge plan Time Spent With Patient Time: Total time managing care of this patient today ____ minutes. Quality Stroke Does the patient have a stroke diagnosis?: No VTE Prior VTE?: No VTE Risk Level:: Medical - moderate - high VTE Device Contraindication: N/A - Device Ordered VTE Drug Contraindication: Treatment Not Indicated
[2022-05-17] MEDS: Rivaroxaban 15 MG TABLET PO (16:22)
--- NOTE | 2022-05-17 18:35 | PC.NURSE ---
At 1835 pt had 8 beats of Vtach. Assessed pt- pt denied chest pain, denied SOB, c/o belly pain. MD notified, continue to monitor Gave PRN pain med at 1844
[2022-05-17] MEDS: traZODone HCL 25 MG HALFTAB 12.5 MG PO (18:44)
[2022-05-17] MEDS: Melatonin 3 MG TABLET PO (20:49)
[2022-05-18 03:13] VITALS: BP 138/64; PULSE 67; RESP 20; TEMP 37.1; O2SAT 98
[2022-05-18] MEDS: Omeprazole 20 MG CAPSULE.DR PO (05:45)
[2022-05-18 07:33] VITALS: BP 125/95; PULSE 59; RESP 20; TEMP 36; O2SAT 93
[2022-05-18] MEDS: carvediloL 12.5 MG TABLET PO ×2 (09:41→20:46)
[2022-05-18] MEDS: Folic Acid 1 MG TABLET PO (09:41)
[2022-05-18] MEDS: Acetaminophen 325 MG TABLET 650 MG PO ×3 (09:41→20:46)
[2022-05-18] MEDS: Magnesium Oxide 400 MG TABLET PO ×2 (09:41→16:58)
[2022-05-18] MEDS: Bumetanide 1 MG TABLET PO (09:42)
[2022-05-18] MEDS: Tamsulosin HCL 0.4 MG CAPSULE 0.8 MG PO (09:42)
[2022-05-18] MEDS: oxyCODONE HCl Immed Release 5 MG TABLET PO (09:42)
--- NOTE | 2022-05-18 09:53 | P.PNIM_ITS ---
Subjective Subjective Date of Service: 05/18/22 Interval History: no new issues, baseline confusion Review of Systems Denies chest pain Denies shortness of breath Denies nausea vomiting diarrhea Denies fever chills Physical Exam Vital Signs: Vital Signs: Last Vital Signs Temp 96.8 F 05/18/22 07:33 Pulse 59 05/18/22 07:33 Resp 20 05/18/22 07:33 BP 125/95 H 05/18/22 07:33 Pulse Ox 93 05/18/22 07:33 O2 Del Method 05/18/22 07:33 O2 Flow Rate 2 05/09/22 11:06 FiO2 30 04/10/22 07:00 Oxygen Flow Rate 30 04/10/22 05:25 BMI result Body Mass Index 26.4 Const: Other: General: AO X 1, no acute distress Resp: CTA bilateral CVS: S1,S2,RRR GI: +BS, NT, no distention Skin: No rash, perianal area opening unchanged Neuro: motor grossly intact Psych: appropriate affect Objective Data Active Medications Acetaminophen (Acetaminophen 325 Mg Tablet) 650 mg PO TID [facility] Last Admin: 05/18/22 09:41 Dose: 650 mg Documented By: CHARLIE Benzonatate (Benzonatate 100 Mg Capsule) 100 mg PO TID PRN PRN Reason: Cough Last Admin: 02/22/22 16:03 Dose: 100 mg Documented By: BOGDAN Bumetanide (Bumetanide 1 Mg Tablet) 1 mg PO DAILY [facility]; Protocol Last Admin: 05/18/22 09:42 Dose: 1 mg Documented By: CHARLIE Carvedilol (Carvedilol 12.5 Mg Tablet) 12.5 mg PO BID [facility]; Protocol Last Admin: 05/18/22 09:41 Dose: 12.5 mg Documented By: CHARLIE Digoxin (Digoxin 0.125 Mg Tablet) 0.125 mg PO Q2D [facility] Last Admin: 05/16/22 09:03 Dose: 0.125 mg Documented By: CODIE Docusate Sodium (Docusate Sodium 100 Mg Capsule) 100 mg PO BEDTIME PRN PRN Reason: Constipation Folic Acid (Folic Acid 1 Mg Tablet) 1 mg PO DAILY [facility] Last Admin: 05/18/22 09:41 Dose: 1 mg Documented By: CHARLIE Magnesium Oxide (Magnesium Oxide 400 Mg Tablet) 400 mg PO BIDWM [facility] Last Admin: 05/18/22 09:41 Dose: 400 mg Documented By: CHARLIE Melatonin (Melatonin 3 Mg Tablet) 3 mg PO BEDTIME PRN PRN Reason: Insomnia Last Admin: 05/17/22 20:49 Dose: 3 mg Documented By: CAROL Nystatin (Nystatin Powder 15 Gm Bottle) 1 appl TOPICAL TID [facility]; Protocol Last Admin: 05/17/22 20:54 Dose: 1 appl Documented By: CAROL Omeprazole (Omeprazole 20 Mg Capsule.Dr) 20 mg PO DAILY@0630 [facility] Last Admin: 05/18/22 05:45 Dose: 20 mg Documented By: CAROL Ondansetron HCl (Ondansetron Hcl 4 Mg/2 Ml Vial) 4 mg IVPUSH Q8H PRN PRN Reason: Nausea and Vomiting Last Admin: 04/24/22 20:42 Dose: 4 mg Documented By: CRISTOFER Oxycodone HCl (Oxycodone Hcl Immed Release 5 Mg Tablet) 5 mg PO TID [facility] Last Admin: 05/18/22 09:42 Dose: 5 mg Documented By: CHARLIE Pharmacy Consult (Consult Rx Perform Med Rec) 1 each MISCELLANE ONCE PRN PRN Reason: Consult order Potassium Chloride (Potassium Chloride Er 10 Meq Capsule.Er) 10 meq PO DAILY [facility] Last Admin: 05/18/22 09:42 Dose: 10 meq Documented By: CHARLIE Rivaroxaban (Rivaroxaban 15 Mg Tablet) 15 mg PO DAILY@1700 [facility] Last Admin: 05/17/22 16:22 Dose: 15 mg Documented By: CODIE Sodium Chloride (0.9 % Sodium Chloride Flush 3 Ml Syringe) 3 ml IVFLUSH QSHIFT [facility] Last Admin: 05/18/22 09:41 Dose: Not Given Documented By: CHARLIE Non-Admin Reason: No Access Tamsulosin HCl (Tamsulosin Hcl 0.4 Mg Capsule) 0.8 mg PO DAILY [facility] Last Admin: 05/18/22 09:42 Dose: 0.8 mg Documented By: CHARLIE Trazodone HCl (Trazodone Hcl 25 Mg Halftab) 12.5 mg PO BID PRN PRN Reason: Pain, Mild (Pain Scale 1-3) Last Admin: 05/17/22 18:44 Dose: 12.5 mg Documented By: CODIE Labs 05/15/22 07:56 05/17/22 08:53 Assessment and Plan (1) Olecranon bursitis of right elbow: Status: Acute (2) DAWIT (acute kidney injury): Status: Acute Plan 77yo M with hx chronic HFrEF, AF s/p PPM 2019 AC on rivaroxaban, CKD3, unspecified dementia, brought in after falling in the [place] while intoxicated and developing an open anal wound with fecal drainage admitted for perirectal perforation/cellulitis. He was transferred to intensive care unit overnight of 04/09 for acute hypoxia with pulmonary edema secondary to increased fluid overload,? AFib with RVR briefly requiring BiPAP support for respiratory effort and not for hypercapnia.? He was diuressed with good effect and ultimately taking off bid ? 1.Right elbow pain/olecranon bursitis - improving, completed prednisone 10 mg daily 10/27 2.DAWIT on CKD3 -at baseline -periodic BMPs while on diuretic 3.Resistant E. coli UTI -urine culture 05/12/2022 resistant E coli -does not seem toxic; no white count -discussed with ID; no indication to treat. .. Likely colonization 4.Acute on chronic systolic heart failure -well compensated -daily Bumex 1mg 5.Perirectal perforation/cellulitis -fecal drainage through open perianal wound Persists, cellulitis resolved. - perianal hygiene, wound care 6.Permanent AFIB -acceptable rate controlled - continue Eliquis, digoxin, continue Xarelto DVT prophylaxis Rivaroxaban DNR/DNI need for inpatient: awaiting safe discharge plan Time Spent With Patient Time: Total time managing care of this patient today ____ minutes. Quality Stroke Does the patient have a stroke diagnosis?: No VTE Prior VTE?: No VTE Risk Level:: Medical - moderate - high VTE Device Contraindication: N/A - Device Ordered VTE Drug Contraindication: Treatment Not Indicated
[2022-05-18] MEDS: Nystatin Powder 15 GM BOTTLE 1 APPL TOPICAL ×3 (11:25→20:50)
[2022-05-18] MEDS: Digoxin 0.125 MG TABLET PO (11:25)
[2022-05-18 15:30] VITALS: BP 127/88; PULSE 61; RESP 15; TEMP 36.4; O2SAT 98
--- NOTE | 2022-05-18 15:37 | MHC.CM.PN ---
DP: REUBEN IS TAKING ANOTHER LOOK/REVIEW AT PT. CM WILL CONTINUE TO FOLLOW FOR PLACEMENT.
[2022-05-18] MEDS: Rivaroxaban 15 MG TABLET PO (16:58)
[2022-05-18 19:16] VITALS: BP 113/80; PULSE 93; RESP 15; TEMP 36.1; O2SAT 97
[2022-05-18] MEDS: traZODone HCL 25 MG HALFTAB 12.5 MG PO (22:11)
[2022-05-18 23:40] VITALS: BP 127/90; PULSE 68; RESP 18; TEMP 36.1; O2SAT 98
[2022-05-19 04:00] VITALS: BP 135/94; PULSE 68; RESP 18; TEMP 36.1; O2SAT 98
[2022-05-19] MEDS: Omeprazole 20 MG CAPSULE.DR PO (05:19)
[2022-05-19 07:32] VITALS: BP 130/87; PULSE 64; RESP 16; TEMP 36.4
[2022-05-19] MEDS: traZODone HCL 25 MG HALFTAB 12.5 MG PO ×2 (07:46→19:33)
[2022-05-19] MEDS: Acetaminophen 325 MG TABLET 650 MG PO ×3 (07:46→19:33)
[2022-05-19] MEDS: Folic Acid 1 MG TABLET PO (07:47)
[2022-05-19] MEDS: carvediloL 12.5 MG TABLET PO ×2 (07:47→19:33)
[2022-05-19] MEDS: Bumetanide 1 MG TABLET PO (07:47)
[2022-05-19] MEDS: Magnesium Oxide 400 MG TABLET PO ×2 (07:47→16:16)
[2022-05-19] MEDS: Nystatin Powder 15 GM BOTTLE 1 APPL TOPICAL ×3 (07:48→19:33)
[2022-05-19] MEDS: Tamsulosin HCL 0.4 MG CAPSULE 0.8 MG PO (07:48)
[2022-05-19 11:10] VITALS: BP 116/85; PULSE 65; RESP 20; TEMP 36.9; O2SAT 95
[2022-05-19 14:52] VITALS: BP 134/85; PULSE 69; RESP 20; TEMP 36.1; O2SAT 90
--- NOTE | 2022-05-19 15:22 | P.PNIM_ITS ---
Subjective Subjective Date of Service: 05/19/22 Interval History: seen and examined this morning awaiting placement no documented overnight events upset because he spilled his water on the floor. denies pain or sob Review of Systems Review of Systems: Yes all other systems are reviewed and are negative Cardiovascular Cardiovascular: Denies chest pain, Denies palpitations and Denies dyspnea Respiratory Respiratory: Denies cough and Denies dyspnea Gastrointestinal Gastrointestinal: Denies abdominal pain Neurologic Neurologic: Reports confusion Psychiatric Psychiatric: Reports confusion Endocrine Endocrine: Denies palpitations Physical Exam Vital Signs: Vital Signs: Last Vital Signs Temp 96.9 F 05/19/22 14:52 Pulse 69 05/19/22 14:52 Resp 20 05/19/22 14:52 BP 134/85 05/19/22 14:52 Pulse Ox 90 L 05/19/22 14:52 O2 Del Method 05/19/22 14:52 O2 Flow Rate 2 05/09/22 11:06 FiO2 30 04/10/22 07:00 Oxygen Flow Rate 30 04/10/22 05:25 BMI result Body Mass Index 26.4 Const: General: cooperative, comfortable, alert, awake, Physically active and confusion Nutritional Appearance: average body habitus Orientation/consciousness: confusion Resp: Effort & Inspection: normal respiratory effort and able to speak in complete sentences Auscultation: clear to auscultation bilaterally Cardio: Rate: regular rate Heart sounds: S1 normal heart sound present and S2 normal heart sound present GI: Palpation (GI): Soft to palpation and nontender Neuro: General: CN's II-XI intact bilaterally and confusion Extrem: Other: no redness, swelling of right elbow General: Yes no pedal edema Objective Data Active Medications Acetaminophen (Acetaminophen 325 Mg Tablet) 650 mg PO TID [facility] Last Admin: 05/19/22 07:46 Dose: 650 mg Documented By: CHARLIE Bumetanide (Bumetanide 1 Mg Tablet) 1 mg PO DAILY [facility]; Protocol Last Admin: 05/19/22 07:47 Dose: 1 mg Documented By: CHARLIE Carvedilol (Carvedilol 12.5 Mg Tablet) 12.5 mg PO BID [facility]; Protocol Last Admin: 05/19/22 07:47 Dose: 12.5 mg Documented By: CHARLIE Digoxin (Digoxin 0.125 Mg Tablet) 0.125 mg PO Q2D [facility] Last Admin: 05/18/22 11:25 Dose: 0.125 mg Documented By: CHARLIE Docusate Sodium (Docusate Sodium 100 Mg Capsule) 100 mg PO BEDTIME PRN PRN Reason: Constipation Magnesium Oxide (Magnesium Oxide 400 Mg Tablet) 400 mg PO BIDWM [facility] Last Admin: 05/19/22 07:47 Dose: 400 mg Documented By: CHARLIE Nystatin (Nystatin Powder 15 Gm Bottle) 1 appl TOPICAL TID [facility]; Protocol Last Admin: 05/19/22 07:48 Dose: 1 appl Documented By: CHARLIE Potassium Chloride (Potassium Chloride Er 10 Meq Capsule.Er) 10 meq PO DAILY [facility] Last Admin: 05/19/22 07:47 Dose: 10 meq Documented By: CHARLIE Rivaroxaban (Rivaroxaban 15 Mg Tablet) 15 mg PO DAILY@1700 [facility] Last Admin: 05/18/22 16:58 Dose: 15 mg Documented By: CHARLIE Tamsulosin HCl (Tamsulosin Hcl 0.4 Mg Capsule) 0.8 mg PO DAILY [facility] Last Admin: 05/19/22 07:48 Dose: 0.8 mg Documented By: CHARLIE Trazodone HCl (Trazodone Hcl 25 Mg Halftab) 12.5 mg PO BID PRN PRN Reason: Pain, Mild (Pain Scale 1-3) Last Admin: 05/19/22 07:46 Dose: 12.5 mg Documented By: CHARLIE Labs 05/15/22 07:56 05/17/22 08:53 Assessment and Plan (1) NSVT (nonsustained ventricular tachycardia): Status: Acute (2) Dementia with behavioral disturbance: Status: Acute Plan 77yo M with hx chronic HFrEF, AF s/p PPM 2020 AC on rivaroxaban, CKD3, unspecified dementia, brought in after falling [place] the [place] while intoxicated and developing an open anal wound with fecal drainage admitted for perirectal perforation/cellulitis. He was transferred to intensive care unit overnight of 04/09 for acute hypoxia with pulmonary edema secondary to increased fluid overload,? AFib with RVR briefly requiring BiPAP support for respiratory effort and not for hypercapnia.? He was diuressed with good effect and ultimately taking off bid ? Right elbow pain/olecranon bursitis - improving, completed prednisone 10 mg daily 10/27 DAWIT on CKD3 -at baseline -periodic BMPs while on diuretic Resistant E. coli UTI -urine culture 05/12/2022 resistant E coli -does not seem toxic; no white count -discussed with ID; no indication to treat. .. Likely colonization Acute on chronic systolic heart failure EF 15% -well compensated -daily Bumex 1mg Perirectal perforation/cellulitis -fecal drainage through open perianal wound Persists, cellulitis resolved. - perianal hygiene, wound care Permanent AFIB -acceptable rate controlled - continue Eliquis, digoxin, continue Xarelto NSVT continue po mag/k replacement, coreg, digoxin DVT prophylaxis Rivaroxaban DNR/DNI attending - dr. witt need for inpatient: awaiting safe discharge plan Time Spent With Patient Time: Total time managing care of this patient today ____ minutes. Quality Stroke Does the patient have a stroke diagnosis?: No VTE Prior VTE?: No VTE Risk Level:: Medical - moderate - high VTE Device Contraindication: N/A - Device Ordered VTE Drug Contraindication: Treatment Not Indicated
[2022-05-19] MEDS: Rivaroxaban 15 MG TABLET PO (16:16)
[2022-05-19 19:03] VITALS: BP 138/90; PULSE 80; RESP 20; TEMP 36.1; O2SAT 90
[2022-05-19 22:59] VITALS: BP 133/89; PULSE 86; RESP 20; TEMP 36.8; O2SAT 98
[2022-05-20 07:21] VITALS: BP 130/70; PULSE 71; RESP 14; TEMP 36.6; O2SAT 98
[2022-05-20] MEDS: Bumetanide 1 MG TABLET PO (08:59)
[2022-05-20] MEDS: Digoxin 0.125 MG TABLET PO (08:59)
[2022-05-20] MEDS: Acetaminophen 325 MG TABLET 650 MG PO ×3 (08:59→22:02)
[2022-05-20] MEDS: Magnesium Oxide 400 MG TABLET PO ×2 (08:59→15:46)
[2022-05-20] MEDS: Nystatin Powder 15 GM BOTTLE 1 APPL TOPICAL ×3 (08:59→22:15)
[2022-05-20] MEDS: Tamsulosin HCL 0.4 MG CAPSULE 0.8 MG PO (08:59)
[2022-05-20] MEDS: carvediloL 12.5 MG TABLET PO ×2 (08:59→22:03)
[2022-05-20 09:01] LABS: Anion Gap 15 (12-20); Blood Urea Nitrogen 35 mg/dL (9-16); Calcium 9.7 mg/dL (8.4-10.2); Carbon Dioxide 29 mmol/L (22-29); Chloride 102 mmol/L (96-108); Creatinine Clr Calc Pharmacy 39.1; Estimated Glomerular Filt Rate 41; Glucose Random 106 mg/dL (60-115); Potassium 5.3 mmol/L (3.3-5.1); Sodium 141 mmol/L (135-145)
[2022-05-20 11:29] VITALS: BP 140/73; PULSE 71; RESP 12; TEMP 35.9
--- NOTE | 2022-05-20 13:10 | P.PNIM_ITS ---
Subjective Subjective Date of Service: 05/20/22 Interval History: seen and examined this morning follow up for placement no overnight events awake, alert, no specific complaints this am Review of Systems Review of Systems: Yes all other systems are reviewed and are negative Constitutional Constitutional: Denies chills and Denies fever(s) Cardiovascular Cardiovascular: Denies chest pain and Denies dyspnea Respiratory Respiratory: Denies dyspnea Gastrointestinal Gastrointestinal: Denies abdominal pain Physical Exam Vital Signs: Vital Signs: Last Vital Signs Temp 96.6 F L 05/20/22 11:29 Pulse 71 05/20/22 11:29 Resp 12 05/20/22 11:29 BP 140/73 H 05/20/22 11:29 Pulse Ox 98 05/20/22 07:21 O2 Del Method 05/20/22 07:21 O2 Flow Rate 2 05/09/22 11:06 FiO2 30 04/10/22 07:00 Oxygen Flow Rate 30 04/10/22 05:25 BMI result Body Mass Index 26.4 Const: General: cooperative, comfortable, alert, awake and Physically active Nutritional Appearance: average body habitus Resp: Effort & Inspection: normal respiratory effort and able to speak in complete sentences Cardio: Rate: regular rate Heart sounds: S1 normal heart sound present and S2 normal heart sound present GI: Palpation (GI): Soft to palpation and nontender Neuro: General: CN's II-XI intact bilaterally Extrem: General: Yes no pedal edema Objective Data Active Medications Acetaminophen (Acetaminophen 325 Mg Tablet) 650 mg PO TID [facility] Last Admin: 05/20/22 08:59 Dose: 650 mg Documented By: KOBY Bumetanide (Bumetanide 1 Mg Tablet) 1 mg PO DAILY [facility]; Protocol Last Admin: 05/20/22 08:59 Dose: 1 mg Documented By: KOBY Carvedilol (Carvedilol 12.5 Mg Tablet) 12.5 mg PO BID [facility]; Protocol Last Admin: 05/20/22 08:59 Dose: 12.5 mg Documented By: KOBY Digoxin (Digoxin 0.125 Mg Tablet) 0.125 mg PO Q2D [facility] Last Admin: 05/20/22 08:59 Dose: 0.125 mg Documented By: KOBY Docusate Sodium (Docusate Sodium 100 Mg Capsule) 100 mg PO BEDTIME PRN PRN Reason: Constipation Magnesium Oxide (Magnesium Oxide 400 Mg Tablet) 400 mg PO BIDWM [facility] Last Admin: 05/20/22 08:59 Dose: 400 mg Documented By: KOBY Nystatin (Nystatin Powder 15 Gm Bottle) 1 appl TOPICAL TID [facility]; Protocol Last Admin: 05/20/22 08:59 Dose: 1 appl Documented By: KOBY Potassium Chloride (Potassium Chloride Er 10 Meq Capsule.Er) 10 meq PO DAILY [facility] Last Admin: 05/20/22 08:59 Dose: 10 meq Documented By: KOBY Rivaroxaban (Rivaroxaban 15 Mg Tablet) 15 mg PO DAILY@1700 [facility] Last Admin: 05/19/22 16:16 Dose: 15 mg Documented By: SOLISJULIO Tamsulosin HCl (Tamsulosin Hcl 0.4 Mg Capsule) 0.8 mg PO DAILY [facility] Last Admin: 05/20/22 08:59 Dose: 0.8 mg Documented By: KOBY Trazodone HCl (Trazodone Hcl 25 Mg Halftab) 12.5 mg PO BID PRN PRN Reason: Pain, Mild (Pain Scale 1-3) Last Admin: 05/19/22 19:33 Dose: 12.5 mg Documented By: GUILLERMO Labs 05/15/22 07:56 05/20/22 08:16 Labs: Laboratory Results - last 24 hr 05/20/22 08:16 Anion Gap 15 Estim Creat Clear Calc 39.1 Estimated GFR 41 Random Glucose 106 Calcium 9.7 Assessment and Plan (1) Hyperkalemia: Status: Acute (2) DAWIT (acute kidney injury): Status: Acute Plan 77yo M with hx chronic HFrEF, AF s/p PPM 2019 AC on rivaroxaban, CKD3, unspecified dementia, brought in after falling [place] the [place] while intoxicated and developing an open anal wound with fecal drainage admitted for perirectal perforation/cellulitis. He was transferred to intensive care unit overnight of 04/09 for acute hypoxia with pulmonary edema secondary to increased fluid overload,? AFib with RVR briefly requiring BiPAP support for respiratory effort and not for hypercapnia.? He was diuressed with good effect and ultimately taking off bid ? Right elbow pain/olecranon bursitis - improving, completed prednisone 10 mg daily 10/27 DAWIT on CKD3 Hold bumex follow renal function -periodic BMPs while on diuretic Hyperkalemia lokelma x 1 repeat BMP in am hold k supplementation Resistant E. coli UTI -urine culture 05/12/2022 resistant E coli -does not seem toxic; no white count -discussed with ID; no indication to treat. .. Likely colonization Acute on chronic systolic heart failure EF 15% -well compensated -hold Bumex 1mg for DAWIT Perirectal perforation/cellulitis -fecal drainage through open perianal wound Persists, cellulitis resolved. - perianal hygiene, wound care Permanent AFIB -acceptable rate controlled - continue Eliquis, digoxin, continue Xarelto NSVT continue po mag replacement, coreg, digoxin DVT prophylaxis Rivaroxaban DNR/DNI attending - dr. kruse need for inpatient: awaiting safe discharge plan Time Spent With Patient Time: Total time managing care of this patient today ____ minutes. Quality Stroke Does the patient have a stroke diagnosis?: No VTE Prior VTE?: No VTE Risk Level:: Medical - moderate - high VTE Device Contraindication: N/A - Device Ordered VTE Drug Contraindication: Treatment Not Indicated
[2022-05-20] MEDS: Sodium Zirconium Cyclosilicate 5 GM POWD.PACK PO (14:09)
[2022-05-20] MEDS: Rivaroxaban 15 MG TABLET PO (15:46)
[2022-05-20 15:48] VITALS: BP 120/88; PULSE 96; RESP 18; TEMP 36.6; O2SAT 98
[2022-05-20 19:27] VITALS: BP 139/94; PULSE 72; RESP 19; TEMP 37.2; O2SAT 97
[2022-05-20] MEDS: traZODone HCL 25 MG HALFTAB 12.5 MG PO (22:02)
[2022-05-21] VITALS (7 sets, daily range): BP systolic 125–143; BP diastolic 81–95; PULSE 61–93; RESP 14–18; TEMP 36.1–36.8; O2SAT 92–100
[2022-05-21 07:47] LABS: Anion Gap 15 (12-20); Blood Urea Nitrogen 36 mg/dL (9-16); Calcium 9.4 mg/dL (8.4-10.2); Carbon Dioxide 28 mmol/L (22-29); Chloride 103 mmol/L (96-108); Creatinine Clr Calc Pharmacy 41.1; Estimated Glomerular Filt Rate 43; Glucose Random 98 mg/dL (60-115); Potassium 4.6 mmol/L (3.3-5.1); Sodium 141 mmol/L (135-145)
[2022-05-21] MEDS: Acetaminophen 325 MG TABLET 650 MG PO ×3 (08:59→21:03)
[2022-05-21] MEDS: Tamsulosin HCL 0.4 MG CAPSULE 0.8 MG PO (09:00)
[2022-05-21] MEDS: carvediloL 12.5 MG TABLET PO ×2 (09:00→21:03)
[2022-05-21] MEDS: Nystatin Powder 15 GM BOTTLE 1 APPL TOPICAL ×3 (09:00→21:04)
[2022-05-21] MEDS: Magnesium Oxide 400 MG TABLET PO ×2 (09:00→16:17)
--- NOTE | 2022-05-21 15:57 | P.PNIM_ITS ---
Subjective Subjective Date of Service: 05/21/22 Interval History: seen and examined this morning follow up for placement no overnight events no specific complaints Review of Systems Review of Systems: Yes all other systems are reviewed and are negative Constitutional Constitutional: Denies chills and Denies fever(s) Cardiovascular Cardiovascular: Denies chest pain, Denies palpitations and Denies dyspnea Respiratory Respiratory: Denies cough and Denies dyspnea Gastrointestinal Gastrointestinal: Denies abdominal pain, Denies nausea and Denies vomiting Endocrine Endocrine: Denies palpitations Physical Exam Vital Signs: Vital Signs: Last Vital Signs Temp 97.1 F 05/21/22 15:55 Pulse 93 05/21/22 15:55 Resp 14 05/21/22 15:55 BP 127/81 05/21/22 15:55 Pulse Ox 100 05/21/22 15:55 O2 Del Method 05/21/22 11:45 O2 Flow Rate 2 05/09/22 11:06 FiO2 30 04/10/22 07:00 Oxygen Flow Rate 30 04/10/22 05:25 BMI result Body Mass Index 26.4 Const: General: cooperative, comfortable, alert, awake and Physically active Nutritional Appearance: average body habitus Resp: Effort & Inspection: normal respiratory effort and able to speak in complete sentences Auscultation: clear to auscultation bilaterally Cardio: Rate: regular rate Heart sounds: S1 normal heart sound present and S2 normal heart sound present GI: Palpation (GI): Soft to palpation and nontender Neuro: General: CN's II-XI intact bilaterally Extrem: General: Yes no pedal edema Objective Data Active Medications Acetaminophen (Acetaminophen 325 Mg Tablet) 650 mg PO TID [facility] Last Admin: 05/21/22 08:59 Dose: 650 mg Documented By: KOBY Bumetanide (Bumetanide 1 Mg Tablet) 1 mg PO DAILY [facility]; Protocol Last Admin: 05/20/22 08:59 Dose: 1 mg Documented By: KOBY Carvedilol (Carvedilol 12.5 Mg Tablet) 12.5 mg PO BID [facility]; Protocol Last Admin: 05/21/22 09:00 Dose: 12.5 mg Documented By: KOBY Digoxin (Digoxin 0.125 Mg Tablet) 0.125 mg PO Q2D [facility] Last Admin: 05/20/22 08:59 Dose: 0.125 mg Documented By: KOBY Docusate Sodium (Docusate Sodium 100 Mg Capsule) 100 mg PO BEDTIME PRN PRN Reason: Constipation Magnesium Oxide (Magnesium Oxide 400 Mg Tablet) 400 mg PO BIDWM [facility] Last Admin: 05/21/22 09:00 Dose: 400 mg Documented By: KOBY Nystatin (Nystatin Powder 15 Gm Bottle) 1 appl TOPICAL TID [facility]; Protocol Last Admin: 05/21/22 09:00 Dose: 1 appl Documented By: KOBY Potassium Chloride (Potassium Chloride Er 10 Meq Capsule.Er) 10 meq PO DAILY [facility] Last Admin: 05/20/22 08:59 Dose: 10 meq Documented By: KOBY Rivaroxaban (Rivaroxaban 15 Mg Tablet) 15 mg PO DAILY@1700 [facility] Last Admin: 05/20/22 15:46 Dose: 15 mg Documented By: KOBY Tamsulosin HCl (Tamsulosin Hcl 0.4 Mg Capsule) 0.8 mg PO DAILY [facility] Last Admin: 05/21/22 09:00 Dose: 0.8 mg Documented By: KOBY Trazodone HCl (Trazodone Hcl 25 Mg Halftab) 12.5 mg PO BID PRN PRN Reason: Pain, Mild (Pain Scale 1-3) Last Admin: 05/20/22 22:02 Dose: 12.5 mg Documented By: BERNARDOROA Labs 05/15/22 07:56 05/21/22 07:15 Labs: Laboratory Results - last 24 hr 05/21/22 07:15 Anion Gap 15 Estim Creat Clear Calc 41.1 Estimated GFR 43 Random Glucose 98 Calcium 9.4 Assessment and Plan (1) DAWIT (acute kidney injury): Status: Acute Plan 77yo M with hx chronic HFrEF, AF s/p PPM 2019 AC on rivaroxaban, CKD3, unspecified dementia, brought in after falling [place] the [place] while intoxicated and developing an open anal wound with fecal drainage admitted for perirectal perforation/cellulitis. He was transferred to intensive care unit overnight of 04/09 for acute hypoxia with pulmonary edema secondary to increased fluid overload,? AFib with RVR briefly requiring BiPAP support for respiratory effort and not for hypercapnia.? He was diuressed with good effect and ultimately taking off bid ? Right elbow pain/olecranon bursitis Improved, completed prednisone 10 mg daily 10/27 DAWIT on CKD3 Hold bumex follow renal function -periodic BMPs while on diuretic Hyperkalemia lokelma x 1 improved Resistant E. coli UTI -urine culture 05/12/2022 resistant E coli -does not seem toxic; no white count -discussed with ID; no indication to treat. .. Likely colonization Acute on chronic systolic heart failure EF 15% -well compensated -hold bumex for dawit - consider resuming in am Perirectal perforation/cellulitis -fecal drainage through open perianal wound Persists, cellulitis resolved. - perianal hygiene, wound care Permanent AFIB -acceptable rate controlled - continue Eliquis, digoxin, continue Xarelto NSVT continue po mag replacement, coreg, digoxin DVT prophylaxis Rivaroxaban DNR/DNI attending - dr. kruse need for inpatient: awaiting safe discharge plan Time Spent With Patient Time: Total time managing care of this patient today ____ minutes. Quality Stroke Does the patient have a stroke diagnosis?: No VTE Prior VTE?: No VTE Risk Level:: Medical - moderate - high VTE Device Contraindication: N/A - Device Ordered VTE Drug Contraindication: Treatment Not Indicated
[2022-05-21] MEDS: Rivaroxaban 15 MG TABLET PO (16:17)
[2022-05-21] MEDS: traZODone HCL 25 MG HALFTAB 12.5 MG PO (23:53)
[2022-05-22 04:00] VITALS: BP 133/95; PULSE 66; RESP 18; TEMP 36.2; O2SAT 92
[2022-05-22 07:57] VITALS: BP 128/60; PULSE 68; RESP 16; TEMP 36.4; O2SAT 96
[2022-05-22] MEDS: carvediloL 12.5 MG TABLET PO ×2 (08:57→20:13)
[2022-05-22] MEDS: Tamsulosin HCL 0.4 MG CAPSULE 0.8 MG PO (08:57)
[2022-05-22] MEDS: Acetaminophen 325 MG TABLET 650 MG PO ×3 (08:58→20:13)
[2022-05-22] MEDS: Magnesium Oxide 400 MG TABLET PO ×2 (08:58→16:55)
[2022-05-22] MEDS: Nystatin Powder 15 GM BOTTLE 1 APPL TOPICAL ×3 (08:59→20:19)
[2022-05-22] MEDS: Digoxin 0.125 MG TABLET PO (09:00)
[2022-05-22 11:56] VITALS: BP 126/84; PULSE 75; RESP 16; TEMP 36.7; O2SAT 95
--- NOTE | 2022-05-22 13:11 | P.PNIM_ITS ---
Subjective Subjective Date of Service: 05/22/22 Interval History: seen and examined this morning follow up for placement no overnight events no specific complaints Review of Systems Review of Systems: Yes all other systems are reviewed and are negative Constitutional Constitutional: Denies chills and Denies fever(s) Cardiovascular Cardiovascular: Denies chest pain, Denies palpitations and Denies dyspnea Respiratory Respiratory: Denies cough and Denies dyspnea Gastrointestinal Gastrointestinal: Denies abdominal pain, Denies nausea and Denies vomiting Endocrine Endocrine: Denies palpitations Physical Exam Vital Signs: Vital Signs: Last Vital Signs Temp 98.0 F 05/22/22 11:56 Pulse 75 05/22/22 11:56 Resp 16 05/22/22 11:56 BP 126/84 05/22/22 11:56 Pulse Ox 95 05/22/22 11:56 O2 Del Method 05/22/22 11:56 O2 Flow Rate 2 05/09/22 11:06 FiO2 30 04/10/22 07:00 Oxygen Flow Rate 30 04/10/22 05:25 BMI result Body Mass Index 26.4 Appearing in no acute distress lung sounds are clear to auscultation heart regular rate rhythm, clear S1, S2 positive bowel sounds, abdomen is soft, nontender neuro patient is alert , confused Objective Data Active Medications Acetaminophen (Acetaminophen 325 Mg Tablet) 650 mg PO TID [facility] Last Admin: 05/22/22 08:58 Dose: 650 mg Documented By: KOBY Bumetanide (Bumetanide 1 Mg Tablet) 1 mg PO DAILY [facility]; Protocol Last Admin: 05/20/22 08:59 Dose: 1 mg Documented By: KOBY Carvedilol (Carvedilol 12.5 Mg Tablet) 12.5 mg PO BID [facility]; Protocol Last Admin: 05/22/22 08:57 Dose: 12.5 mg Documented By: KOBY Digoxin (Digoxin 0.125 Mg Tablet) 0.125 mg PO Q2D [facility] Last Admin: 05/22/22 09:00 Dose: 0.125 mg Documented By: KOBY Docusate Sodium (Docusate Sodium 100 Mg Capsule) 100 mg PO BEDTIME PRN PRN Reason: Constipation Magnesium Oxide (Magnesium Oxide 400 Mg Tablet) 400 mg PO BIDWM [facility] Last Admin: 05/22/22 08:58 Dose: 400 mg Documented By: KOBY Nystatin (Nystatin Powder 15 Gm Bottle) 1 appl TOPICAL TID [facility]; Protocol Last Admin: 05/22/22 08:59 Dose: 1 appl Documented By: KOBY Potassium Chloride (Potassium Chloride Er 10 Meq Capsule.Er) 10 meq PO DAILY [facility] Last Admin: 05/20/22 08:59 Dose: 10 meq Documented By: KOBY Rivaroxaban (Rivaroxaban 15 Mg Tablet) 15 mg PO DAILY@1700 [facility] Last Admin: 05/21/22 16:17 Dose: 15 mg Documented By: KOBY Tamsulosin HCl (Tamsulosin Hcl 0.4 Mg Capsule) 0.8 mg PO DAILY [facility] Last Admin: 05/22/22 08:57 Dose: 0.8 mg Documented By: KOBY Trazodone HCl (Trazodone Hcl 25 Mg Halftab) 12.5 mg PO BID PRN PRN Reason: Pain, Mild (Pain Scale 1-3) Last Admin: 05/21/22 23:53 Dose: 12.5 mg Documented By: FARIBA Labs 05/15/22 07:56 05/21/22 07:15 Assessment and Plan (1) DAWIT (acute kidney injury): Status: Acute Plan 77yo M with hx chronic HFrEF, AF s/p PPM 2019 AC on rivaroxaban, CKD3, unspec ified dementia, brought in after falling in the [place] while intoxicated and developing an open anal wound with fecal drainage admitted for perirectal perforation/cellulitis. He was transferred to intensive care unit overnight of 04/09 for acute hypoxia with pulmonary edema secondary to increased fluid overload,? AFib with RVR briefly requiring BiPAP support for respiratory effort and not for hypercapnia.? He was diuressed with good effect and ultimately taking off bid ? Right elbow pain/olecranon bursitis Improved, completed prednisone 10 mg daily 10/27 DAWIT on CKD3 Hold bumex follow renal function periodic BMPs while on diuretic Hyperkalemia lokelma x 1 improved Resistant E. coli UTI urine culture 05/12/2022 resistant E coli does not seem toxic; no white count discussed with ID; no indication to treat. .. Likely colonization Acute on chronic systolic heart failure EF 15% well compensated hold bumex for dawit - consider resuming in am Perirectal perforation/cellulitis fecal drainage through open perianal wound Persists, cellulitis resolved. perianal hygiene, wound care Permanent AFIB acceptable rate controlled continue Eliquis, digoxin, continue Xarelto NSVT continue po mag replacement, coreg, digoxin DVT prophylaxis Rivaroxaban DNR/DNI attending - dr. Velasco need for inpatient: awaiting safe discharge plan Time Spent With Patient Time: Total time managing care of this patient today ____ minutes. Quality Stroke Does the patient have a stroke diagnosis?: No VTE Prior VTE?: No VTE Risk Level:: Medical - moderate - high VTE Device Contraindication: N/A - Device Ordered VTE Drug Contraindication: Treatment Not Indicated
[2022-05-22 14:51] VITALS: BP 122/93; PULSE 77; RESP 18; TEMP 36.6; O2SAT 94
--- NOTE | 2022-05-22 15:59 | MHC.CM.PN ---
DP: AWAITING RESPONSE FROM [facility] TO SEE IF THEY ARE WILLING TO OFFER A LTC BED. CM WILL CONTINUE TO FOLLOW
[2022-05-22] MEDS: Rivaroxaban 15 MG TABLET PO (16:55)
[2022-05-22 19:50] VITALS: BP 134/92; PULSE 70; RESP 18; TEMP 36.5; O2SAT 95
[2022-05-22] MEDS: traZODone HCL 25 MG HALFTAB 12.5 MG PO (20:13)
[2022-05-22 23:25] VITALS: BP 132/88; PULSE 73; RESP 18; TEMP 36.4; O2SAT 99
[2022-05-23] MEDS: traZODone HCL 25 MG HALFTAB 12.5 MG PO ×2 (05:46→19:40)
[2022-05-23 08:00] VITALS: BP 138/64; RESP 18; TEMP 36.8; O2SAT 95
[2022-05-23] MEDS: Magnesium Oxide 400 MG TABLET PO ×2 (08:58→16:30)
[2022-05-23] MEDS: Acetaminophen 325 MG TABLET 650 MG PO ×3 (08:58→19:39)
[2022-05-23] MEDS: Tamsulosin HCL 0.4 MG CAPSULE 0.8 MG PO (08:58)
[2022-05-23] MEDS: carvediloL 12.5 MG TABLET PO ×2 (08:58→19:40)
[2022-05-23] MEDS: Nystatin Powder 15 GM BOTTLE 1 APPL TOPICAL ×3 (09:06→19:42)
--- NOTE | 2022-05-23 09:29 | P.PNIM_ITS ---
Subjective Subjective Date of Service: 05/23/22 Interval History: seen and examined this morning follow up for placement no overnight events no specific complaints Review of Systems Review of Systems: Yes all other systems are reviewed and are negative Constitutional Constitutional: Denies chills and Denies fever(s) Cardiovascular Cardiovascular: Denies chest pain, Denies palpitations and Denies dyspnea Respiratory Respiratory: Denies cough and Denies dyspnea Gastrointestinal Gastrointestinal: Denies abdominal pain, Denies nausea and Denies vomiting Endocrine Endocrine: Denies palpitations Physical Exam Vital Signs: Vital Signs: Last Vital Signs Temp 98.2 F 05/23/22 08:00 Pulse 73 05/22/22 23:25 Resp 18 05/23/22 08:00 BP 138/64 05/23/22 08:00 Pulse Ox 95 05/23/22 08:00 O2 Del Method 05/23/22 08:00 O2 Flow Rate 2 05/09/22 11:06 FiO2 30 04/10/22 07:00 Oxygen Flow Rate 30 04/10/22 05:25 BMI result Body Mass Index 26.4 Appearing in no acute distress lung sounds are clear to auscultation heart regular rate rhythm, clear S1, S2 positive bowel sounds, abdomen is soft, nontender neuro patient is alert, confused Objective Data Active Medications Acetaminophen (Acetaminophen 325 Mg Tablet) 650 mg PO TID [facility] Last Admin: 05/23/22 08:58 Dose: 650 mg Documented By: JUAN MANUEL Bumetanide (Bumetanide 1 Mg Tablet) 1 mg PO DAILY [facility]; Protocol Last Admin: 05/20/22 08:59 Dose: 1 mg Documented By: KOBY Carvedilol (Carvedilol 12.5 Mg Tablet) 12.5 mg PO BID [facility]; Protocol Last Admin: 05/23/22 08:58 Dose: 12.5 mg Documented By: JUAN MANUEL Digoxin (Digoxin 0.125 Mg Tablet) 0.125 mg PO Q2D [facility] Last Admin: 05/22/22 09:00 Dose: 0.125 mg Documented By: KOBY Docusate Sodium (Docusate Sodium 100 Mg Capsule) 100 mg PO BEDTIME PRN PRN Reason: Constipation Magnesium Oxide (Magnesium Oxide 400 Mg Tablet) 400 mg PO BIDWM [facility] Last Admin: 05/23/22 08:58 Dose: 400 mg Documented By: JUAN MANUEL Nystatin (Nystatin Powder 15 Gm Bottle) 1 appl TOPICAL TID [facility]; Protocol Last Admin: 05/23/22 09:06 Dose: 1 appl Documented By: JUAN MANUEL Potassium Chloride (Potassium Chloride Er 10 Meq Capsule.Er) 10 meq PO DAILY [facility] Last Admin: 05/20/22 08:59 Dose: 10 meq Documented By: KOBY Rivaroxaban (Rivaroxaban 15 Mg Tablet) 15 mg PO DAILY@1700 [facility] Last Admin: 05/22/22 16:55 Dose: 15 mg Documented By: KOBY Tamsulosin HCl (Tamsulosin Hcl 0.4 Mg Capsule) 0.8 mg PO DAILY [facility] Last Admin: 05/23/22 08:58 Dose: 0.8 mg Documented By: JUAN MANUEL Trazodone HCl (Trazodone Hcl 25 Mg Halftab) 12.5 mg PO BID PRN PRN Reason: Pain, Mild (Pain Scale 1-3) Last Admin: 05/23/22 05:46 Dose: 12.5 mg Documented By: KINGSLEYQC Labs 05/15/22 07:56 05/21/22 07:15 Assessment and Plan (1) DAWIT (acute kidney injury): Status: Acute Plan 77yo M with hx chronic HFrEF, AF s/p PPM 2019 AC on rivaroxaban, CKD3, unspecified dementia, brought in after falling [place] the [place] while intoxicated and developing an open anal wound with fecal drainage admitted for perirectal perforation/cellulitis. He was transferred to intensive care unit overnight of 04/09 for acute hypoxia with pulmonary edema secondary to increased fluid overload,? AFib with RVR briefly requiring BiPAP support for respiratory effort and not for hypercapnia.? He was diuressed with good effect and ultimately taking off bid ? Right elbow pain/olecranon bursitis Improved, completed prednisone 10 mg daily 10/27 DAWIT on CKD3 Hold bumex follow renal function periodic BMPs while on diuretic Hyperkalemia lokelma x 1 improved Resistant E. coli UTI urine culture 05/12/2022 resistant E coli does not seem toxic; no white count discussed with ID; no indication to treat. .. Likely colonization Acute on chronic systolic heart failure EF 15% well compensated hold bumex for dawit - consider resuming in am Perirectal perforation/cellulitis fecal drainage through open perianal wound Persists, cellulitis resolved. perianal hygiene, wound care Permanent AFIB acceptable rate controlled continue Eliquis, digoxin, continue Xarelto NSVT continue po mag replacement, coreg, digoxin DVT prophylaxis Rivaroxaban DNR/DNI attending - Dr. Barone need for inpatient: awaiting safe discharge plan Time Spent With Patient Time: Total time managing care of this patient today ____ minutes. Quality Stroke Does the patient have a stroke diagnosis?: No VTE Prior VTE?: No VTE Risk Level:: Medical - moderate - high VTE Device Contraindication: N/A - Device Ordered VTE Drug Contraindication: Treatment Not Indicated
[2022-05-23 12:00] VITALS: BP 136/82; PULSE 80; RESP 18; TEMP 36.7; O2SAT 96
--- NOTE | 2022-05-23 15:55 | PC.NURSE ---
pt complains of not being able to see from left eye. provider aware
[2022-05-23 16:00] VITALS: BP 129/97; PULSE 120; RESP 20; TEMP 36.6; O2SAT 95
[2022-05-23] MEDS: Rivaroxaban 15 MG TABLET PO (16:30)
[2022-05-23 19:55] VITALS: BP 132/82; PULSE 70; RESP 18; TEMP 36.8; O2SAT 99
[2022-05-23 23:27] VITALS: BP 122/89; PULSE 65; RESP 18; TEMP 36.4; O2SAT 96
[2022-05-24 03:21] VITALS: BP 124/94; PULSE 60; RESP 18; TEMP 36.1; O2SAT 95
[2022-05-24 07:57] VITALS: BP 134/94; PULSE 73; RESP 20; TEMP 36.4; O2SAT 98
--- NOTE | 2022-05-24 10:38 | HO.PM.IMPN ---
Subjective Subjective Date of Service: 05/24/22 Interval History: seen and examined this morning follow up for placement no overnight events no specific complaints Review of Systems Review of Systems: Yes all other systems are reviewed and are negative Constitutional Constitutional: Denies chills and Denies fever(s) Cardiovascular Cardiovascular: Denies chest pain, Denies palpitations and Denies dyspnea Respiratory Respiratory: Denies cough and Denies dyspnea Gastrointestinal Gastrointestinal: Denies abdominal pain, Denies nausea and Denies vomiting Endocrine Endocrine: Denies palpitations Physical Exam Vital Signs: Vital Signs: Last Vital Signs Temp 97.5 F 05/24/22 07:57 Pulse 73 05/24/22 07:57 Resp 20 05/24/22 07:57 BP 134/94 H 05/24/22 07:57 Pulse Ox 98 05/24/22 07:57 O2 Del Method 05/24/22 07:57 O2 Flow Rate 2 05/09/22 11:06 FiO2 30 04/10/22 07:00 Oxygen Flow Rate 30 04/10/22 05:25 BMI result Body Mass Index 26.4 Appearing in no acute distress lung sounds are clear to auscultation heart regular rate rhythm, clear S1, S2 positive bowel sounds, abdomen is soft, nontender neuro patient is alert, and confused Objective Data Active Medications Acetaminophen (Acetaminophen 325 Mg Tablet) 650 mg PO TID [facility] Last Admin: 05/23/22 19:39 Dose: 650 mg Documented By: ALIN Bumetanide (Bumetanide 1 Mg Tablet) 1 mg PO DAILY [facility]; Protocol Last Admin: 05/20/22 08:59 Dose: 1 mg Documented By: KOBY Carvedilol (Carvedilol 12.5 Mg Tablet) 12.5 mg PO BID [facility]; Protocol Last Admin: 05/23/22 19:40 Dose: 12.5 mg Documented By: ALIN Digoxin (Digoxin 0.125 Mg Tablet) 0.125 mg PO Q2D [facility] Last Admin: 05/22/22 09:00 Dose: 0.125 mg Documented By: KOBY Docusate Sodium (Docusate Sodium 100 Mg Capsule) 100 mg PO BEDTIME PRN PRN Reason: Constipation Magnesium Oxide (Magnesium Oxide 400 Mg Tablet) 400 mg PO BIDWM [facility] Last Admin: 05/23/22 16:30 Dose: 400 mg Documented By: JUAN MANUEL Nystatin (Nystatin Powder 15 Gm Bottle) 1 appl TOPICAL TID [facility]; Protocol Last Admin: 05/23/22 19:42 Dose: 1 appl Documented By: ALIN Potassium Chloride (Potassium Chloride Er 10 Meq Capsule.Er) 10 meq PO DAILY [facility] Last Admin: 05/20/22 08:59 Dose: 10 meq Documented By: FOGARTB Rivaroxaban (Rivaroxaban 15 Mg Tablet) 15 mg PO DAILY@1700 [facility] Last Admin: 05/23/22 16:30 Dose: 15 mg Documented By: JUAN MANUEL Tamsulosin HCl (Tamsulosin Hcl 0.4 Mg Capsule) 0.8 mg PO DAILY [facility] Last Admin: 05/23/22 08:58 Dose: 0.8 mg Documented By: JUAN MANUEL Trazodone HCl (Trazodone Hcl 25 Mg Halftab) 12.5 mg PO BID PRN PRN Reason: Pain, Mild (Pain Scale 1-3) Last Admin: 05/23/22 19:40 Dose: 12.5 mg Documented By: ALIN Labs 05/15/22 07:56 05/21/22 07:15 Assessment and Plan (1) DAWIT (acute kidney injury): Status: Acute Plan 77yo M with hx chronic HFrEF, AF s/p PPM 2019 AC on rivaroxaban, CKD3, unspecified dementia, brought in after falling in the [place] while intoxicated and developing an open anal wound with fecal drainage admitted for perirectal perforation/cellulitis. He was transferred to intensive care unit overnight of 04/09 for acute hypoxia with pulmonary edema secondary to increased fluid overload,? AFib with RVR briefly requiring BiPAP support for respiratory effort and not for hypercapnia.? He was diuressed with good effect and ultimately taking off bid ? Right elbow pain/olecranon bursitis Improved, completed prednisone 10 mg daily 10/27 DAWIT on CKD3 Hold bumex follow renal function periodic BMPs while on diuretic Hyperkalemia lokelma x 1 improved Resistant E. coli UTI urine culture 05/12/2022 resistant E coli does not seem toxic; no white count discussed with ID; no indication to treat. .. Likely colonization Acute on chronic systolic heart failure EF 15% well compensated hold bumex for dawit - consider resuming in am Perirectal perforation/cellulitis fecal drainage through open perianal wound Persists, cellulitis resolved. perianal hygiene, wound care Permanent AFIB acceptable rate controlled continue Eliquis, digoxin, continue Xarelto NSVT continue po mag replacement, coreg, digoxin DVT prophylaxis Rivaroxaban DNR/DNI attending - Dr. Barone need for inpatient: awaiting safe discharge plan Time Spent With Patient Time: Total time managing care of this patient today ____ minutes. Quality Stroke Does the patient have a stroke diagnosis?: No VTE Prior VTE?: No VTE Risk Level:: Medical - moderate - high VTE Device Contraindication: N/A - Device Ordered VTE Drug Contraindication: Treatment Not Indicated
[2022-05-24] MEDS: Nystatin Powder 15 GM BOTTLE 1 APPL TOPICAL ×2 (11:12→14:49)
[2022-05-24] MEDS: Tamsulosin HCL 0.4 MG CAPSULE 0.8 MG PO (11:16)
[2022-05-24] MEDS: Acetaminophen 325 MG TABLET 650 MG PO ×2 (11:16→14:49)
[2022-05-24] MEDS: carvediloL 12.5 MG TABLET PO (11:16)
[2022-05-24] MEDS: Magnesium Oxide 400 MG TABLET PO (11:17)
[2022-05-24] MEDS: Digoxin 0.125 MG TABLET PO (11:19)
[2022-05-24 11:31] VITALS: BP 130/96; PULSE 65; RESP 20; TEMP 36.3; O2SAT 93
--- NOTE | 2022-05-24 13:48 | PM.DS ---
DS: Providers Provider Date of Service: 05/24/22 Date of admission: 02/17/22 17:05 Primary care physician: None Physician Consults: 02/17/22 16:29 Consult to General Surgery Routine Consulting Provider: Golden Garza Reason for consultation: buttock wound Has provider been notified: Yes 02/17/22 18:00 Consult to General Surgery Routine Consulting Provider: Golden Garza Reason for consultation: rectal perforation Has provider been notified: Yes 02/19/22 07:17 Consult to Wound Care Routine Consulting Provider: Rambissoon Wound Ca,Kourtney Reason for consultation: perforation of rectum 02/19/22 13:47 Consult to Cardiology Routine Consulting Provider: Abraham Barros Reason for consultation: preop for possible diverting colostomy Has provider been notified: No 02/20/22 14:30 Consult to Infectious Diseases Routine Consulting Provider: Melissa Gao Reason for consultation: uti esbl pos Has provider been notified: No 04/06/22 14:32 Consult to Psychiatry Routine Consulting Provider: Psych Covering Reason for consultation: agiatation/hallucinations Has provider been notified: No 04/07/22 08:23 Consult to General Surgery Routine Consulting Provider: [facility] [place] [facility] Reason for consultation: ozzing through rectal fistula area Has provider been notified: No 04/07/22 12:01 Consult to Nephrology Routine Consulting Provider: Pierce Wilkins Reason for consultation: dawit,hyperkalemia Has provider been notified: No 04/10/22 12:42 Consult to Wound Care Stat Consulting Provider: [facility] [place] [facility] Reason for consultation: ?pressure injury vs fistula 04/10/22 14:38 Consult to Infectious Diseases Routine Consulting Provider: Melissa Gao Reason for consultation: esbl in urine Has provider been notified: No 04/10/22 16:00 Consult to Cardiology Routine Consulting Provider: Favio Curtis Reason for consultation: chf execerebation Has provider been notified: No 04/10/22 16:02 Consult to Infectious Diseases Routine Consulting Provider: Melissa Gao Reason for consultation: ESBL POSTITIVE BEFORE 04/18/22 08:40 Consult to Infectious Diseases Routine Consulting Provider: Melissa Gao Reason for consultation: esbl uti Has provider been notified: No 05/09/22 09:56 Consult to Orthopedics Routine Consulting Provider: Matthew Mantilla Reason for consultation: ? bursitis, may need aspiration Has provider been notified: No Attending physician on discharge: Franklyn Barone Discharging clinician: Janice Jean-Baptiste DS: Diagnosis Discharge Diagnosis (1) DAWIT (acute kidney injury): Status: Acute DS: Summary Hospital Course Hospital Course: HP as per admitting provider 77-year-old gentleman with past medical history significant for heart failure with reduced EF echocardiogram from last year showed an EF of 10-15% with grade 3 diastolic dysfunction status post pacemaker placement in 2019, history of atrial fibrillation on anticoagulation, history of chronic kidney disease stage 3, history of severe mitral regurg, moderate to severe tricuspid regurg, moderate pulmonary hypertension and dementia was brought into [facility] accompanied by son since patient fell on concrete in [place] while he was intoxicated patient has history of 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 possible for further management therefore patient was brought into [facility], patient is a poor historian due to underlying dementia unable to provide detailed history at present he denies fever chills complaining of chronic shortness of breath, denies headache, dizziness, workup in the emergency room showed an INR of 1.[address] abdomen and pelvis revealed mild to moderate pericardial effusion, extensive areas of ectopic gas within the soft tissues of the right buttock right ischiorectal fossa perineum and pelvis likely related to perforation of the rectum, patient noted to have fecal drainage from the open wound, extending to the rectum from the left perineal wall, patient at present is hemodynamically stable surgery recommended patient to be admitted to medical service with surgical consultation due to significant history of heart disease with low EF, chronic kidney disease stage 3 and atrial fibrillation on Xarelto . Right elbow pain/olecranon bursitis. Developed while inpatient. Completed 7 days of prednisone 10 mg. DAWIT on CKD3. (creat 1.55) Bumex held, recheck BMP later this week and if creatinine improved consider restarting Bumex Hyperkalemia. Treated with Lokelma and resolved. Resistant E. coli UTI, ESBL positive. Nontoxic, no leukocytosis. Discussed with Infectious Disease and no treatment indication as this seems likely a colonization Acute on chronic systolic heart failure/severe cardiomyopathy. EF 10-15% but well compensated. Bumex has been on hold for DAWIT, consider resuming later this week after checking BMP. Continue digoxin and Coreg. Perirectal perforation/cellulitis. Does have fecal drainage through open yamilka anal wound. Good hygiene and wound care. Cellulitis resolved. Permanent AFIB. Acceptable rate control. Xarelto, digoxin and carvedilol NSVT. Continue Coreg and digoxin. Had a few episodes during hospitalization but nonsustained. Acute respiratory failure secondary to pulmonary edema. One point during the hospitalization (03/2022) the patient had developed atrial fibrillation with rapid ventricular response putting him and pulmonary edema. He was found to be hypoxic with oxygen saturation in the 80s, placed on non-rebreather with improvement of his oxygen saturation. He became hypotensive with systolic blood pressure in the 80s, chest x-ray revealed pulmonary edema. He required BiPAP support and was transferred to the ICU with significantly improved symptoms after diuresis and rate control. Time Spent with Patient Time attestation: Total time managing care of this patient today ____ minutes. Discharge coordination time: Greater than 30 minutes Quality: Safe Use of Opioids Does Pt have an Active Cancer Diagnosis on the Problem List?: No Quality: Stroke Does the patient have a stroke diagnosis?: No Physical Exam Vital Signs: Vital Signs: Last Vital Signs Temp 97.4 F 05/24/22 11:31 Pulse 65 05/24/22 11:31 Resp 20 05/24/22 11:31 BP 130/96 H 05/24/22 11:31 Pulse Ox 93 05/24/22 11:31 O2 Del Method 05/24/22 11:31 O2 Flow Rate 2 05/09/22 11:06 FiO2 30 04/10/22 07:00 Oxygen Flow Rate 30 04/10/22 05:25 BMI result Body Mass Index 26.4 Appearing in no acute distress head is normocephalic atraumatic eyes pupils are PERRLA sclera is anicteric mouth throat mucous membranes are intact and moist neck is supple no lymphadenopathy, no JVD noted lung sounds are clear to auscultation heart regular rate rhythm, clear S1, S2 positive bowel sounds, abdomen is soft, nontender neuro patient is alert, confused Discharge Plan Discharge Anticipated Discharge Date/Time: 05/24/22 14:52 Patient Disposition: Xfer LTC Discharge Diagnosis: Right elbow olecranon bursitis DAWIT on CKD stage 3 Hyperkalemia Resistant E coli UTI Acute on chronic systolic heart failure Perirectal perforation Referrals: [facility] [Other] - 1 Week Discharge Medications: New digoxin 125 mcg (0.125 mg) Tablet 0.125 mg PO Q2D Qty: 15 0RF bumetanide 1 mg Tablet 1 mg PO DAILY Qty: 30 0RF Protocol: Hold for SBP< HOLD for SBP < : 90 Rx Instructions: monitor BMP weekly Continued acetaminophen 325 mg Tablet 650 mg PO Q6H PRN (Reason: Pain) carvedilol 6.25 mg tablet 1 tab PO BID enalapril maleate 2.5 mg tablet 1 tab PO BID spironolactone 25 mg tablet 1 tab PO DAILY tamsulosin 0.4 mg capsule 1 cap PO DAILY furosemide 80 mg tablet 1 tab PO BID omeprazole 20 mg Capsule,Delayed Release(Dr/Ec) 20 mg PO DAILY@0630 folic acid 1 mg tablet 1 tab PO DAILY Xarelto 15 mg Tablet 15 mg PO DAILY@1700 Rx Instructions: must administer with evening meal Discharge Orders: Discharge Order (Routine); Ordered 05/24/22 Ordered By: Janice Jean-Baptiste Diet: Advance to usual diet Activity on Discharge: As tolerated Stand Alone Forms: Patient Portal Discharge page Care Plan Goals: Frequent repositioning assistance with meal setup Health Concerns: Right elbow olecranon bursitis DAWIT on CKD stage 3 Hyperkalemia Resistant E coli UTI Acute on chronic systolic heart failure Perirectal perforation Plan of Treatment: Take all medications as prescribed Check BMP weekly while on Bumex Assessment: See discharge summary
[2022-05-24 14:24] LABS: COVID-19 Test Negative (Negative); IDNOW Serial# 9DB6401D
[2022-05-24 15:42] VITALS: BP 140/97; PULSE 68; RESP 16; TEMP 36.4
== END 2022-05-24 15:43 | DRG 393 ==
LOC: HO.ED 15:23 → HO.EDOVER 17:34 → HO.IMC 02-18 20:06 → HO.S3 03-05 16:29 → HO.ICU 04-10 05:17 → HO.IMC 04-11 20:22
PROVIDERS: Family Medicine; Hospitalist; Internal Medicine; Internal Medicine Nephrology; Physician Assistant Medical; Student in an Organized Health Care Education/Training Program; Admitting Provider Hospitalist; Emergency Provider Emergency Medicine; Visit Provider Nurse Practitioner Acute Care
DX: K63.1 Perforation of intestine (nontraumatic) (principal); G92.8 Other toxic encephalopathy; I50.23 Acute on chronic systolic (congestive) heart failure; J96.01 Acute respiratory failure with hypoxia; I47.20 Ventricular tachycardia, unspecified; L03.317 Cellulitis of buttock; Z16.12 Extended spectrum beta lactamase (ESBL) resistance; I48.19 Other persistent atrial fibrillation; N39.0 Urinary tract infection, site not specified; E87.20 Acidosis, unspecified; I42.9 Cardiomyopathy, unspecified; I31.39 Other pericardial effusion (noninflammatory); F33.1 Major depressive disorder, recurrent, moderate; F03.911 Unspecified dementia, unspecified severity, with agitation; N17.9 Acute kidney failure, unspecified; E87.1 Hypo-osmolality and hyponatremia; S31.829A Unspecified open wound of left buttock, initial encounter; Z66 Do not resuscitate; W19.XXXA Unspecified fall, initial encounter; I27.20 Pulmonary hypertension, unspecified; E87.5 Hyperkalemia; I08.1 Rheumatic disorders of both mitral and tricuspid valves; N18.30 Chronic kidney disease, stage 3 unspecified; M70.21 Olecranon bursitis, right elbow; B96.1 Klebsiella pneumoniae [K. pneumoniae] as the cause of diseases classified elsewhere; N40.1 Benign prostatic hyperplasia with lower urinary tract symptoms; R33.8 Other retention of urine; I77.819 Aortic ectasia, unspecified site; B96.20 Unspecified Escherichia coli [E. coli] as the cause of diseases classified elsewhere; Z20.822 Contact with and (suspected) exposure to COVID-19; Z45.02 Encounter for adjustment and management of automatic implantable cardiac defibrillator; Z75.1 Person awaiting admission to adequate facility elsewhere; Z79.01 Long term (current) use of anticoagulants; Z79.899 Other long term (current) drug therapy
CPT/HCPCS: 36415; 70450; 71045; 71046; 74176; 80048; 80053; 80076; 80202; 81001; 82077; 82436; 82533; 82550; 82565; 82803; 82947; 83605; 83690; 83735; 83880; 83930; 83935; 84133; 84145; 84300; 84443; 84484; 85025; 85027; 85610; 85730; 86140; 87040; 87086; 87088; 87186; 87635; 93005; 93306; 93308; 94660; 97110; 97162; 97530; 99285; J1170; J1940; J2185; J2270; J2405; J2543; J3370; J3411; J3475; P9047; Q9957